=== PATIENT | female | born 1955 | race Two or more races ===

== ENCOUNTER 2020-06-19 07:19 | Emergency (ER) | payer MEDICARE, MEDICAID, SELFPAY ==
[2020-06-19 07:25] VITALS: BP 135/53; BP 170/00; PULSE 60; PULSE 65; RESP 18; TEMP 36.4; O2SAT 96; O2SAT 98; BMI 46.0
--- NOTE | 2020-06-19 07:31 | ECG_ITS ---
Test Reason : DIZZINESS Blood Pressure : / mmHG Vent. Rate : 060 BPM Atrial Rate : 060 BPM P-R Int : 188 ms QRS Dur : 086 ms QT Int : 452 ms P-R-T Axes : 043 -30 046 degrees QTc Int : 452 ms Atrial-paced rhythm Left axis deviation Abnormal ECG When compared with ECG of 23-JAN-2020 16:09, No significant change was found Referred By: Valencia Polanco Electronically Signed By:ARINA MANZANARES MD
--- NOTE | 2020-06-19 07:32 | ED.GENADULT ---
HPI - General Adult General Chief complaint: Dizziness Stated complaint: DIZZINESS Time Seen by Provider: 06/19/20 07:31 Source: patient Mode of arrival: EMS Limitations: no limitations History of Present Illness HPI narrative: Patient comes to the emergency room complaining of 3 days of intermittent dizziness. Patient states the whole room moves makes her feel nauseous. At this moment, she is asymptomatic. Patient states prior to arrival, she got up from a sitting position, started walking and started feeling like she was going to pass out. Patient has been complaining of head fullness and drinking in the right ear. Patient denies Chest pain, no shortness of breath, no neck pain, no vomiting diarrhea fever. patient denies falling despite being dizzy. Related Data Previous Rx's Medication Instructions Recorded meclizine 25 mg PO TID PRN #10 tab 06/19/20 Allergies Allergy/AdvReac Type Severity Reaction Status Date / Time No Known Allergies Allergy Unverified 05/09/20 18:09 Review of Systems Review of Systems: Constitutional : No Weight loss, No Fever, No Chills, No Night Sweats, No Fatigue, No Malaise ENT/Mouth : No Hearing loss, No Ear Pain, complaining of ringing in the right ear intermittently, No Nasal Congestion, No Sinus Pain, No Hoarseness, No sore throat, No Rhinorrhea, No Swallowing Difficulty Eyes: No Eye Pain, No Swelling, No Redness, No Foreign Body, No Discharge, No Vision Changes Cardiovascular : No Chest Pain, No SOB, No Dyspnea on Exertion, No Orthopnea, No Edema, No Palpitations Respiratory : No Cough, No Sputum, No Wheezing, No Smoke Exposure, No Dyspnea Gastrointestinal : No Nausea, No Vomiting, No Diarrhea, No Constipation, No abdominal Pain, No Hematochezia, No Melena Genitourinary : no irregular bleeding, No Dysuria, No Urinary Frequency, No Hematuria, No Urinary Incontinence, No Urgency, No Flank Pain, No Urinary Flow Changes, No Hesitancy Musculoskeletal : No joint pain, No Myalgias, No Joint Swelling Skin : No Skin Lesions, No rash Neuro : No Weakness, No Numbness, No Paresthesias, No Loss of Consciousness, Complaining of dizziness and head fullness Psych : No Anxiety/Panic, No Depression, No SI/HI/AH/VH, No Social Issues, Heme/Lymph: No Bruising, No Bleeding,No Lymphadenopathy Endocrine : No Polyuria, No Polydipsia, No Temperature Intolerance [facility] Past Medical History Medical History Asthma HTN (hypertension) Hypothyroid Pacemaker Schizophrenia Surgical History Hx of kidney removal Hx of removal of ovary Social History Social History Advance Directives: Yes Advance Directives Information Provided: No Advance Directives on File: No Physical Exam Vital Signs: Vital Signs: Vital Signs Temp Pulse Resp BP Pulse Ox 06/19/20 07:25 97.6 F 60 18 135/53 L 96 Body Mass Index 46.0 Appearance: Alert. Oriented X3. No acute distress. Eyes: Pupils equal, round and reactive to light. ENT: Pharynx normal. Neck: Normal inspection. Neck supple. No lymph nodes noted. No crepitus CVS: Normal heart rate and rhythm. Pulses normal. Normal S1 and S2 Respiratory: No respiratory distress. Breath sounds normal. No Wheezing. No rales Abdomen: Soft and nontender. No rigidity. No distention. good BS x4 Skin: Skin warm and dry. Normal skin color. Normal skin turgor. Extremities: No lower extremity edema. No lower extremity edema. No Lacerations. No Rash Neuro: Oriented X 3. No motor deficit. No sensory deficit. Moving all extermities. No slurred speech. Course Course Course Narrative: patient states that she feels much better now, no longer having ringing in the ears, no longer dizzy. I discussed with the patient that she may have vertigo versus Meniere's disease. Patient will follow-up with her primary care physician. at this time, dizziness from cardiac etiology is not suspected. Discussed with the patient if she continues having these episodes of dizziness, she may need a Holter monitor Medical Decision Making Lab Data Result diagrams: 06/19/20 07:44 06/19/20 07:44 Labs: Lab Results 06/19/20 06/19/20 Range/Units 07:44 07:44 WBC 6.4 (4.8-10.8) X10*3/uL RBC 4.31 (4.20-5.50) X10*6/uL Hgb 12.5 (12.0-16.0) g/dl Hct 38.9 (37-47) % MCV 90.3 (80-98) fL MCH 29.0 (27.0-33.0) pg MCHC 32.1 (31.0-35.0) g/dl RDW 13.6 (11.0-16.0) % Plt Count 308 (160-400) X10*3/uL MPV 8.9 L (9.4-12.3) fL Immature Gran % (Auto) 0.3 (0.0-0.4) % Neut % (Auto) 63.2 (45-73) % Lymph % (Auto) 23.2 (20-40) % [place] % (Auto) 10.0 (2-11) % Eos % (Auto) 2.8 (0-4) % Baso % (Auto) 0.5 (0-2) % Lymph # (Auto) 1.5 (1.2-4.9) X10*3/uL [place] # (Auto) 0.6 (0.1-1.2) X10*3/uL Eos # (Auto) 0.2 (0.0-0.4) X10*3/uL Baso # (Auto) 0.0 (0.0-0.2) X10*3/uL Abs Immat Gran (auto) 0.02 (0.00-0.03) X10*3/uL Absolute Neuts (auto) 4.0 (2.0-8.3) X10*3/uL Absolute Nucleated RBC 0.000 (0.0-0.012) X10*3/uL Nucleated RBC % (auto) 0.0 (0.0-0.2) /100WBC Sodium 135 (135-145) mmol/L Potassium 4.5 (3.3-5.1) mmol/l Chloride 100 (96-108) mmol/L Carbon Dioxide 26 (22-29) mmol/L Anion Gap 14 (12-20) BUN 7 L (9-16) mg/dL Creatinine 0.84 (0.5-1.4) mg/dL Estim Creat Clear Calc 83.9 Estimated GFR > 60 Random Glucose 89 (60-115) mg/dL Calcium 9.0 (8.4-10.2) mg/dL ECG Data Attestation: I personally reviewed and interpreted this ECG as follows: ( Atrial paced rhythm, heart rate 60, QTC 452, no ST segment elevations or depressions, no T-wave inversions) Discharge Plan Discharge Clinical Impression: Dizziness Patient Disposition: Home, Self-Care Instructions: Meniere Disease (ED), Vertigo (ED), Dizziness (ED) Additional Instructions: Please follow-up with your primary care physician tomorrow. If you have any worsening or new symptoms, please return to the emergency room or call 911 Prescriptions: New meclizine 25 mg tablet 25 mg PO TID PRN (Reason: dizziness) Qty: 10 RF: 0
[2020-06-19 07:51] LABS: MANUAL DIFF FLAG NO
[2020-06-19 07:54] LABS: Basophils Percent Auto 0.5 % (0-2); Eosinophils Absolute Auto 0.2 X10*3/uL (0.0-0.4); Eosinophils Percent Auto 2.8 % (0-4); Hematocrit 38.9 % (37-47); Hemoglobin 12.5 g/dl (12.0-16.0); Imm Gran Abs Auto 0.02 X10*3/uL (0.00-0.03); Imm Gran Pct Auto 0.3 % (0.0-0.4); Lymphocytes Absolute Auto 1.5 X10*3/uL (1.2-4.9); Lymphocytes Percent Auto 23.2 % (20-40); Mean Corpuscular HGB Conc 32.1 g/dl (31.0-35.0); Mean Corpuscular Volume 90.3 fL (80-98); Mean Platelet Volume 8.9 fL (9.4-12.3); Monocytes Absolute Auto 0.6 X10*3/uL (0.1-1.2); Neutrophils Percent Auto 63.2 % (45-73); Platelet Count 308 X10*3/uL (160-400); Red Blood Count 4.31 X10*6/uL (4.20-5.50); Red Cell Distribution Width 13.6 % (11.0-16.0); White Blood Count 6.4 X10*3/uL (4.8-10.8)
[2020-06-19] MEDS: Meclizine HCl 25 MG TABLET 50 MG PO (07:56)
[2020-06-19 08:13] LABS: Anion Gap 14 (12-20); Blood Urea Nitrogen 7 mg/dL (9-16); Carbon Dioxide 26 mmol/L (22-29); Chloride 100 mmol/L (96-108); Creatinine Clr Calc Pharmacy 83.9; Estimated Glomerular Filt Rate > 60; Glucose Random 89 mg/dL (60-115); Potassium 4.5 mmol/l (3.3-5.1); Sodium 135 mmol/L (135-145)
--- NOTE | 2020-06-19 10:18 | PC.NURSE ---
pt resting and watching tv at this time, alert and oriented, skin pwd, respirations even and unlabored. pt denies feeling dizzy at this, ns on the monitor and vs stable
== END 2020-06-19 10:46 | disposition home or self-care (01) ==
PROVIDERS: Emergency Provider Emergency Medicine; PCP Internal Medicine
DX: R42 Dizziness and giddiness (principal); I10 Essential (primary) hypertension; Z79.899 Other long term (current) drug therapy
CPT/HCPCS: 36415; 80048; 85025; 93005; 99283; 99284

== ENCOUNTER 2020-07-30 11:16 | Inpatient (IN) | payer MEDICARE, MEDICAID, SELFPAY ==
[2020-07-30] VITALS (9 sets, daily range): BP systolic 122–184; BP diastolic 55–91; PULSE 60–79; RESP 13–22; TEMP 36.6–37.2; O2SAT 85–99; BMI 48.0
--- NOTE | 2020-07-30 11:34 | XR_ITS ---
EXAMINATION: XR CHEST CLINICAL INFORMATION: Shortness of breath COMPARISON: Previous chest x-ray January 2020 TECHNIQUE: Frontal view of the chest was obtained. FINDINGS: The cardiac silhouette is slightly enlarged. There is a left subclavian dual chamber pacemaker. Hilar and mediastinal contours are unremarkable. There is question of airspace disease at the left lung base. The right lung is clear. There is no pleural effusion or pneumothorax. Bony structures are unremarkable. XR/XR chest 1V IMPRESSION: Enlarged cardiac silhouette. Question airspace disease at the left lung base.
--- NOTE | 2020-07-30 11:34 | ECG_ITS ---
Test Reason : [id number] Blood Pressure : / mmHG Vent. Rate : 060 BPM Atrial Rate : 060 BPM P-R Int : 148 ms QRS Dur : 078 ms QT Int : 452 ms P-R-T Axes : 060 -25 039 degrees QTc Int : 452 ms Atrial-paced rhythm Abnormal ECG When compared with ECG of 19-JUN-2020 07:55, No significant change was found Referred By: Eve Palma Electronically Signed By:LISSETTE EDMONDS
--- NOTE | 2020-07-30 12:08 | ED_ITS ---
HPI - SOB/Dyspnea General Chief Complaint: Weakness Stated Complaint: dizziness/weakness Time Seen by Provider: 07/30/20 11:34 Source: patient and EMS Mode of arrival: EMS History of Present Illness HPI Narrative: 64-year-old female with a past medical history of asthma, hypertension, hypothyroid, pacemaker, schizophrenia BIBA for worsening dry cough, generalized fatigue/weakness, & SOB x5 days. Was recently diagnosed with pneumonia at [facility] , has been taking Levaquin with little relief. Admits to subjective fever, diarrhea, and orthopnea. Reports assoc room spinning dizziness worse with position changes, but not at present. Denies CP, recent travel, sick contacts, abdominal pain, nausea/vomiting, LE edema, history of clots. Has been taking asthma inhalers at home with little relief MD elicited complaint: shortness of breath and cough Related Data Home Medications Medication Instructions Recorded Confirmed albuterol sulfate [ProAir HFA] 2 puff PO Q4H PRN 07/30/20 07/30/20 atorvastatin 1 tab PO DAILY 07/30/20 07/30/20 benztropine 1 tab PO BID 07/30/20 07/30/20 dronedarone [Multaq] 1 tab PO BID 07/30/20 07/30/20 levofloxacin 1 tab PO DAILY 07/30/20 07/30/20 levothyroxine 1 tab PO QAM 07/30/20 07/30/20 loratadine 1 tab PO DAILY 07/30/20 07/30/20 magnesium oxide 1 tab PO DAILY 07/30/20 07/30/20 melatonin 1 - 2 tab PO BEDTIME PRN 07/30/20 07/30/20 metoprolol tartrate 12.5 mg PO BID 07/30/20 07/30/20 paliperidone palmitate [Invega 1 syringe IM Q4W 07/30/20 07/30/20 Sustenna] potassium chloride 1 packet PO DAILY 07/30/20 07/30/20 risperidone 1 mg PO BEDTIME PRN 07/30/20 07/30/20 risperidone 1 tab PO TID 07/30/20 07/30/20 rivaroxaban [Xarelto] 1 tab PO BEDTIME 07/30/20 07/30/20 sertraline 1 tab PO DAILY 07/30/20 07/30/20 sertraline 1.5 tab PO DAILY 07/30/20 07/30/20 Previous Rx's Medication Instructions Recorded meclizine 25 mg PO TID PRN #10 tab 06/19/20 Allergies Allergy/AdvReac Type Severity Reaction Status Date / Time No Known Allergies Allergy Verified 07/30/20 11:27 Review of Systems Review of Systems: Constitutional: No Weight loss, +subj Fever, No Chills, + Fatigue, + Malaise ENT/Mouth: No Hearing loss, No Ear Pain, No Nasal Congestion, No sore throat Cardiovascular: No Chest Pain, +SOB, + Dyspnea on Exertion, + Orthopnea, No Edema, No Palpitations Respiratory: + Cough, No Sputum, No Wheezing, +Dyspnea Gastrointestinal: No Nausea, No Vomiting, + Diarrhea, No Constipation, No Abdominal pain Genitourinary: No Dysuria Musculoskeletal: No joint pain, + Myalgias, No Joint Swelling Skin: No Skin Lesions, No rash Neuro: +genrealized Weakness, No Loss of Consciousness, + Dizziness, No Headache Yes all other systems are reviewed and are negative [facility] Past Medical History Attestation statement: The following information was validated with the patient. Medical History Asthma HTN (hypertension) Hypothyroid Pacemaker Schizophrenia Surgical History Hx of kidney removal Hx of removal of ovary Social History Social History Smoking Status: Never smoker Use of substances other than those prescribed or required for medical reasons: No Advance Directives: No Advance Directives Information Provided: Yes Physical Exam Vital Signs: Vital Signs: Last Vital Signs Temp 98 F 07/30/20 12:00 Pulse 60 07/30/20 13:15 Resp 13 07/30/20 13:15 BP 132/67 07/30/20 13:15 Pulse Ox 96 07/30/20 13:15 Body Mass Index 48.0 Const: General: cooperative and healthy appearing Orientation/consciousness: patient oriented x3 Limitations: no limitations HENMT: Head: Yes normal to inspection Ears: hearing grossly normal bilaterally General nose exam: Normal external nose present Face and sinus: Yes normal facial exam Eyes: General: appearance normal, both eyes and all related structures EOM: EOMs intact bilaterally and Nystagmus present Neck: Neck: Yes normal visual inspection and Yes no meningeal signs Resp: Effort & Inspection: normal respiratory effort and no stridor Auscultation: crackles (bibasilar) Cardio: Rate: regular rate Heart sounds: S1 normal heart sound present and S2 normal heart sound present GI: Inspection: Yes normal to inspection Palpation (GI): Soft to palpation, nontender, no guarding and not rigid Skin: Rashes: no rashes Wounds: no wounds Neuro: General: patient oriented x3, tone normal, moves all extremities, no meningeal signs, no focal motor deficits and CN's II-XI intact bilaterally Cranial nerves: Yes Nystagmus present horizontal fast component to the left Cognition (Neuro): normal cognition Motor exam (neuro): 5/5 motor strength present throughout Coordination: [id number] test normal Extrem: Other: No LE edema or calf tenderness General: Yes normal to inspection Course Course Course Narrative: -CXR showing enlarged cardiac silhouette, question airspace disease in the left lung base> dry CT chest ordered -1307--leukopenia of 4.0, H&H stable, LDH and CRP elevated -CT chest showing scattered areas of ground-glass attenuation and denser atelectasis or consolidation in the left lung base. Pneumonitis or atypical viral pneumonia including COVID-19 should be considered. Trace bilateral pleural effusions > will initiate Azithromycin & admit -patient is COVID-19 positive MDM - SOB/Dyspnea MDM Narrative Medical decision making narrative: 64-year-old female with a past medical history of asthma, hypertension, hypothyroid, pacemaker, schizophrenia BIBA for worsening dry cough, generalized fatigue/weakness, & SOB x5 days. On exam initially sating 85% on room air, increased to 95% on 3L NC, bibasilar crackles, no LE edema, nontoxic appearing. Concern for COVID-19/viral pneumonia vs pneumonia. Lower concern for CHF or ACS Plan: EKG, labs, CXR, COVID-19 screening, Solu-Medrol, albuterol, anticipated admission Lab Data Result diagrams: 07/30/20 12:16 07/30/20 12:16 Labs: Lab Results 07/30/20 07/30/20 07/30/20 Range/Units 12:16 12:16 12:16 WBC 4.0 L (4.8-10.8) X10*3/uL RBC 3.93 L (4.20-5.50) X10*6/uL Hgb 11.2 L (12.0-16.0) g/dl Hct 36.0 L (37-47) % MCV 91.6 (80-98) fL MCH 28.5 (27.0-33.0) pg MCHC 31.1 (31.0-35.0) g/dl RDW 14.5 (11.0-16.0) % Plt Count 213 D (160-400) X10*3/uL MPV 8.9 L (9.4-12.3) fL Immature Gran % (Auto) 0.5 H (0.0-0.4) % Neut % (Auto) 69.5 (45-73) % Lymph % (Auto) 22.1 (20-40) % [place] % (Auto) 7.3 (2-11) % Eos % (Auto) 0.3 (0-4) % Baso % (Auto) 0.3 (0-2) % Lymph # (Auto) 0.9 L (1.2-4.9) X10*3/uL [place] # (Auto) 0.3 (0.1-1.2) X10*3/uL Eos # (Auto) 0.0 (0.0-0.4) X10*3/uL Baso # (Auto) 0.0 (0.0-0.2) X10*3/uL Abs Immat Gran (auto) 0.02 (0.00-0.03) X10*3/uL Absolute Neuts (auto) 2.8 (2.0-8.3) X10*3/uL Absolute Nucleated RBC 0.000 (0.0-0.012) X10*3/uL Nucleated RBC % (auto) 0.0 (0.0-0.2) /100WBC Hold Blue Top SEE NOTE Sodium 137 (135-145) mmol/L Potassium 4.4 (3.3-5.1) mmol/l Chloride 104 (96-108) mmol/L Carbon Dioxide 27 (22-29) mmol/L Anion Gap 10 L (12-20) BUN 10 (9-16) mg/dL Creatinine 0.83 (0.5-1.4) mg/dL Estim Creat Clear Calc 87.1 Estimated GFR > 60 Random Glucose 90 (60-115) mg/dL Calcium 8.2 L D (8.4-10.2) mg/dL Magnesium 2.0 (1.6-2.6) mg/dL Ferritin 176 (10-250) ng/mL Total Bilirubin 0.6 (0.0-1.0) mg/dL Direct Bilirubin 0.2 (0.0-0.5) mg/dL AST 21 (5-31) U/L ALT 14 (0-31) U/L Alkaline Phosphatase 74 (39-117) U/L Lactate Dehydrogenase 255 H (122-220) U/L Troponin I High Sens (<3.5-17.0) ng/L C-Reactive Protein 8.98 H (< or = 0.50) mg/dL B-Natriuretic Peptide (<100) pg/mL Total Protein 6.9 (6.5-8.0) g/dL Albumin 3.4 L (3.5-5.0) g/dL Procalcitonin ng/mL Coronavirus (PCR) (Negative) Influenza Type A (PCR) (Negative) Influenza Type B (PCR) (Negative) RSV RNA Qual (PCR) (Negative) 07/30/20 07/30/20 07/30/20 Range/Units 12:16 12:16 12:16 WBC (4.8-10.8) X10*3/uL RBC (4.20-5.50) X10*6/uL Hgb (12.0-16.0) g/dl Hct (37-47) % MCV (80-98) fL MCH (27.0-33.0) pg MCHC (31.0-35.0) g/dl RDW (11.0-16.0) % Plt Count (160-400) X10*3/uL MPV (9.4-12.3) fL Immature Gran % (Auto) (0.0-0.4) % Neut % (Auto) (45-73) % Lymph % (Auto) (20-40) % [place] % (Auto) (2-11) % Eos % (Auto) (0-4) % Baso % (Auto) (0-2) % Lymph # (Auto) (1.2-4.9) X10*3/uL [place] # (Auto) (0.1-1.2) X10*3/uL Eos # (Auto) (0.0-0.4) X10*3/uL Baso # (Auto) (0.0-0.2) X10*3/uL Abs Immat Gran (auto) (0.00-0.03) X10*3/uL Absolute Neuts (auto) (2.0-8.3) X10*3/uL Absolute Nucleated RBC (0.0-0.012) X10*3/uL Nucleated RBC % (auto) (0.0-0.2) /100WBC Hold Blue Top Sodium (135-145) mmol/L Potassium (3.3-5.1) mmol/l Chloride (96-108) mmol/L Carbon Dioxide (22-29) mmol/L Anion Gap (12-20) BUN (9-16) mg/dL Creatinine (0.5-1.4) mg/dL Estim Creat Clear Calc Estimated GFR Random Glucose (60-115) mg/dL Calcium (8.4-10.2) mg/dL Magnesium (1.6-2.6) mg/dL Ferritin (10-250) ng/mL Total Bilirubin (0.0-1.0) mg/dL Direct Bilirubin (0.0-0.5) mg/dL AST (5-31) U/L ALT (0-31) U/L Alkaline Phosphatase (39-117) U/L Lactate Dehydrogenase (122-220) U/L Troponin I High Sens < 3.5 (<3.5-17.0) ng/L C-Reactive Protein (< or = 0.50) mg/dL B-Natriuretic Peptide 25 (<100) pg/mL Total Protein (6.5-8.0) g/dL Albumin (3.5-5.0) g/dL Procalcitonin 0.07 ng/mL Coronavirus (PCR) POSITIVE A (Negative) Influenza Type A (PCR) NEGATIVE (Negative) Influenza Type B (PCR) NEGATIVE (Negative) RSV RNA Qual (PCR) NEGATIVE (Negative) Discharge Plan Discharge Clinical Impression: Atypical pneumonia, COVID-19 Patient Disposition: Admitted As Inpatient
--- NOTE | 2020-07-30 12:16 | CT_ITS ---
EXAMINATION: CT CHEST WITHOUT CONTRAST CLINICAL INFORMATION: Hypoxia. Rule out pneumonia. COMPARISON: Previous CTA of the chest September 2015 TECHNIQUE: Multidetector volumetric CT imaging of the chest was done. Axial MIP volume rendering provided. Sagittal and coronal reformatted images were obtained. This CT examination was performed using dose optimization techniques as appropriate, variously including the following: *Automated exposure control *Adjustment of mA and/or kV according to patient size (this includes techniques or standardized protocols for targeted exams where dose is matched to indication/reason for exam; i.e. extremities or head) *Use of iterative reconstruction technique DLP: 413 mGy-cm FINDINGS: ENERGY ANALYST: Enlarged heart and left subclavian pacemaker LUNGS: There are scattered areas of groundglass attenuation seen throughout the lungs. There is denser atelectasis or consolidation at the left lung base. MEDIASTINUM: The thyroid gland is enlarged. There is diffuse mediastinal lymphadenopathy. Larger lymph nodes are upper normal in size. The heart is enlarged. There is a left subclavian dual chamber pacemaker. There is no pericardial effusion. There is no coronary artery calcification. PLEURA: There are trace bilateral pleural effusions, right greater than left. AXILLA: No chest wall mass or enlarged axillary lymph nodes are seen. UPPER ABDOMEN: Unremarkable. OSSEOUS STRUCTURES: There are mild degenerative changes of the spine. CT/CT chest wo con IMPRESSION: Scattered areas of groundglass attenuation and denser atelectasis or consolidation at the left lung base. Pneumonitis or atypical viral pneumonia including Covid 19 should be considered. Enlarged heart. Trace bilateral pleural effusions. Enlarged thyroid gland.
[2020-07-30 12:24] LABS: MANUAL DIFF FLAG NO
[2020-07-30 12:30] LABS: Basophils Percent Auto 0.3 % (0-2); Eosinophils Percent Auto 0.3 % (0-4); Hemoglobin 11.2 g/dl (12.0-16.0); Imm Gran Abs Auto 0.02 X10*3/uL (0.00-0.03); Imm Gran Pct Auto 0.5 % (0.0-0.4); Lymphocytes Absolute Auto 0.9 X10*3/uL (1.2-4.9); Lymphocytes Percent Auto 22.1 % (20-40); Mean Corpuscular HGB Conc 31.1 g/dl (31.0-35.0); Mean Corpuscular Hemoglobin 28.5 pg (27.0-33.0); Mean Corpuscular Volume 91.6 fL (80-98); Mean Platelet Volume 8.9 fL (9.4-12.3); Monocytes Absolute Auto 0.3 X10*3/uL (0.1-1.2); Monocytes Percent Auto 7.3 % (2-11); Neutrophils Absolute Auto 2.8 X10*3/uL (2.0-8.3); Neutrophils Percent Auto 69.5 % (45-73); Platelet Count 213 X10*3/uL (160-400); Red Blood Count 3.93 X10*6/uL (4.20-5.50); Red Cell Distribution Width 14.5 % (11.0-16.0)
[2020-07-30 13:01] LABS: Alanine Aminotransferase 14 U/L (0-31); Albumin Level 3.4 g/dL (3.5-5.0); Alkaline Phosphatase 74 U/L (39-117); Anion Gap 10 (12-20); Aspartate Amino Transferase 21 U/L (5-31); Bilirubin Direct 0.2 mg/dL (0.0-0.5); Bilirubin Total 0.6 mg/dL (0.0-1.0); Blood Urea Nitrogen 10 mg/dL (9-16); C Reactive Protein 8.98 mg/dL (< or = 0.50); Calcium 8.2 mg/dL (8.4-10.2); Carbon Dioxide 27 mmol/L (22-29); Chloride 104 mmol/L (96-108); Creatinine Clr Calc Pharmacy 87.1; Estimated Glomerular Filt Rate > 60; Glucose Random 90 mg/dL (60-115); Lactate Dehydrogenase 255 U/L (122-220); Potassium 4.4 mmol/l (3.3-5.1); Sodium 137 mmol/L (135-145); Total Protein 6.9 g/dL (6.5-8.0)
[2020-07-30] MEDS: methylPREDNISolone Sod Succ/PF 125 MG/2 ML VIAL IVPUSH (13:03)
[2020-07-30 13:08] LABS: B Type Natriuretic Peptide 25 pg/mL (<100); Troponin-I High Sensitivity < 3.5 ng/L (<3.5-17.0)
[2020-07-30 13:19] LABS: Procalcitonin 0.07 ng/mL
[2020-07-30 13:22] LABS: Ferritin 176 ng/mL (10-250)
[2020-07-30 13:37] LABS: Influenza A PCR NEGATIVE (Negative); Influenza B PCR NEGATIVE (Negative); Resp Syncy Virus RNA Qual PCR NEGATIVE (Negative)
[2020-07-30] MEDS: Azithromycin 500 MG in 0.9 % Sodium Chloride 250 ML 125 MG IV (13:44)
[2020-07-30 13:45] LABS: SARS COV2 PCR INHOUSE POSITIVE (Negative)
--- NOTE | 2020-07-30 13:49 | PC.NURSE ---
pt aware of plan of care for admission to hosp.
--- NOTE | 2020-07-30 14:38 | PM.IMHP ---
History of Present Illness Date of Service: 07/30/20 Chief Complaint: Shortness of breath, difficulty breathing A 64 years old lady with PMH of asthma, HLD, AFib post ppm, hypothyroid, depression among others who presented to the hospital complaining of 1 week of shortness of breath, worsening lethargy and cough. The patient reports she was doing well during the last period of time until last week when she started to have upper respiratory symptoms with shortness of breath, cough and mild congestion. Her symptoms were associated with mild nausea and episodes of diarrhea with no reported fever, chills, chest pain, palpitation or urinary symptoms. This morning she noted that she is more short of breath with minimal exertion and decided to come to the emergency for evaluation. She was noticed to have a drop in her oxygen level to 80s on room air. CT scan of chest was concerning for possible viral infection. She was tested positive for COVID-19. Review of Systems Review of Systems: No fever, chills or weakness No chest pain, palpitation Reporting mainly exertional shortness of breath and coughing No abdominal pain, nausea or vomiting, reports diarrhea No urinary symptoms No any rash or wounds [facility] Medical History Asthma HTN (hypertension) Hypothyroid Pacemaker Schizophrenia Surgical History Hx of kidney removal Hx of removal of ovary Social History Smoking Status: Never smoker Use of substances other than those prescribed or required for medical reasons: No Advance Directives: No Advance Directives Information Provided: Yes Meds Allergies Allergy/AdvReac Type Severity Reaction Status Date / Time No Known Allergies Allergy Verified 07/30/20 11:27 Home Medications Medication Instructions Recorded Confirmed Type albuterol sulfate [ProAir HFA] 2 puff PO Q4H PRN 07/30/20 07/30/20 History atorvastatin 1 tab PO DAILY 07/30/20 07/30/20 History benztropine 1 tab PO BID 07/30/20 07/30/20 History dronedarone [Multaq] 1 tab PO BID 07/30/20 07/30/20 History levofloxacin 1 tab PO DAILY 07/30/20 07/30/20 History levothyroxine 1 tab PO QAM 07/30/20 07/30/20 History loratadine 1 tab PO DAILY 07/30/20 07/30/20 History magnesium oxide 1 tab PO DAILY 07/30/20 07/30/20 History melatonin 1 - 2 tab PO BEDTIME PRN 07/30/20 07/30/20 History metoprolol tartrate 12.5 mg PO BID 07/30/20 07/30/20 History paliperidone palmitate [Invega 1 syringe IM Q4W 07/30/20 07/30/20 History Sustenna] potassium chloride 1 packet PO DAILY 07/30/20 07/30/20 History risperidone 1 mg PO BEDTIME PRN 07/30/20 07/30/20 History risperidone 1 tab PO TID 07/30/20 07/30/20 History rivaroxaban [Xarelto] 1 tab PO BEDTIME 07/30/20 07/30/20 History sertraline 1 tab PO DAILY 07/30/20 07/30/20 History sertraline 1.5 tab PO DAILY 07/30/20 07/30/20 History Physical Exam Vital Signs and Narrative: Vital Signs: Last Vital Signs Temp 98 F 07/30/20 12:00 Pulse 60 07/30/20 13:15 Resp 13 07/30/20 13:15 BP 132/67 07/30/20 13:15 Pulse Ox 96 07/30/20 13:15 Body Mass Index 48.0 Constitutional : Alert, oriented, not in distress Neck : Normal inspection, Supple Cardiovascular : RRR, S1 S2, no lower extremity edema Respiratory : Fair bilateral air entry, bilateral basal crackles bilaterally and scattered wheezes Gastrointestinal: soft, lax, Normal bowel sounds, Non tender Skin : Warm/Dry, No rash Neurological : Alert & oriented x3, No focal deficit Results Labs CBC and Chem 7: 07/30/20 12:16 07/30/20 12:16 Labs: Laboratory Results - last 24 hr 07/30/20 07/30/20 07/30/20 12:16 12:16 12:16 MCV 91.6 MCH 28.5 MCHC 31.1 RDW 14.5 Plt Count 213 D MPV 8.9 L Immature Gran % (Auto) 0.5 H Neut % (Auto) 69.5 Lymph % (Auto) 22.1 Butler % (Auto) 7.3 Eos % (Auto) 0.3 Baso % (Auto) 0.3 Lymph # (Auto) 0.9 L Butler # (Auto) 0.3 Eos # (Auto) 0.0 Baso # (Auto) 0.0 Abs Immat Gran (auto) 0.02 Absolute Neuts (auto) 2.8 Absolute Nucleated RBC 0.000 Nucleated RBC % (auto) 0.0 Hold Blue Top SEE NOTE Anion Gap 10 L Estim Creat Clear Calc 87.1 Estimated GFR > 60 Random Glucose 90 Calcium 8.2 L D Magnesium 2.0 Ferritin 176 Total Bilirubin 0.6 Direct Bilirubin 0.2 AST 21 ALT 14 Alkaline Phosphatase 74 Lactate Dehydrogenase 255 H Troponin I High Sens C-Reactive Protein 8.98 H B-Natriuretic Peptide Total Protein 6.9 Albumin 3.4 L Procalcitonin Coronavirus (PCR) Influenza Type A (PCR) Influenza Type B (PCR) RSV RNA Qual (PCR) 07/30/20 07/30/20 07/30/20 12:16 12:16 12:16 MCV MCH MCHC RDW Plt Count MPV Immature Gran % (Auto) Neut % (Auto) Lymph % (Auto) Butler % (Auto) Eos % (Auto) Baso % (Auto) Lymph # (Auto) Butler # (Auto) Eos # (Auto) Baso # (Auto) Abs Immat Gran (auto) Absolute Neuts (auto) Absolute Nucleated RBC Nucleated RBC % (auto) Hold Blue Top Anion Gap Estim Creat Clear Calc Estimated GFR Random Glucose Calcium Magnesium Ferritin Total Bilirubin Direct Bilirubin AST ALT Alkaline Phosphatase Lactate Dehydrogenase Troponin I High Sens < 3.5 C-Reactive Protein B-Natriuretic Peptide 25 Total Protein Albumin Procalcitonin 0.07 Coronavirus (PCR) POSITIVE A Influenza Type A (PCR) NEGATIVE Influenza Type B (PCR) NEGATIVE RSV RNA Qual (PCR) NEGATIVE Imaging Radiologist's Impressions: Impressions Chest X-Ray 07/30/20 11:34 IMPRESSION: Enlarged cardiac silhouette. Question airspace disease at the left lung base. Chest CT 07/30/20 12:16 IMPRESSION: Scattered areas of groundglass attenuation and denser atelectasis or consolidation at the left lung base. Pneumonitis or atypical viral pneumonia including Covid 19 should be considered. Enlarged heart. Trace bilateral pleural effusions. Enlarged thyroid gland. Assessment and Plan (1) Atypical pneumonia: Status: Acute (2) COVID-19: Status: Acute (3) Acute respiratory failure with hypoxia: Status: Acute A 64 years old lady with PMH of asthma, HLD, AFib post ppm, hypothyroid, depression among others who presented to the hospital complaining of 1 week of shortness of breath, worsening lethargy and cough. Acute hypoxic respiratory failure Secondary to COVID-19 infection Give O2 supplement to keep sat in 90s Start dexamethasone 6 mg daily for now Albuterol inhaler as needed To get pulmonology evaluation Monitor blood work and keep on telemetry for now Atypical pneumonia She could have a bacteria superinfection Continue with azithromycin for now Atrial fibrillation post ppm Continue Multaq and metoprolol Continue Xarelto On heart monitor Schizophrenia continue risperidone DVT PPX Xarelto
--- NOTE | 2020-07-30 16:09 | PC.NURSE ---
Pt very easily exerted, i/.e when using bedside commode.
[2020-07-30] MEDS: risperiDONE 1 MG TABLET PO ×2 (17:40→20:00)
--- NOTE | 2020-07-30 18:53 | PC.NURSE ---
x1 attempt to give report.
--- NOTE | 2020-07-30 18:59 | PC.NURSE ---
Pt daughter updated via phone w/ pts permission. Glo Yu at [phone] with updates
[2020-07-30] MEDS: Levothyroxine Sodium 112 MCG TABLET PO (20:00)
[2020-07-30] MEDS: Atorvastatin Calcium 80 MG TABLET PO (20:00)
[2020-07-30] MEDS: Metoprolol Tartrate 25 MG TABLET 12.5 MG PO (20:00)
[2020-07-30] MEDS: dexAMETHasone sod phosphate 4 MG/ML VIAL 6 MG IVPUSH (20:00)
[2020-07-30] MEDS: Rivaroxaban 20 MG TABLET PO (20:01)
[2020-07-30] MEDS: 0.9 % Sodium Chloride Flush 3 ML SYRINGE IVFLUSH ×2 (20:05→21:22)
[2020-07-30] MEDS: Dronedarone HCl 400 MG TABLET PO (21:21)
[2020-07-30] MEDS: Benztropine Mesylate 1 MG TABLET PO (21:23)
[2020-07-31] VITALS (9 sets, daily range): BP systolic 121–152; BP diastolic 56–72; PULSE 60–73; RESP 18–20; TEMP 36.4–37.2; O2SAT 90–93; BMI 48.0
[2020-07-31 06:13] LABS: MANUAL DIFF FLAG NO
[2020-07-31 06:26] LABS: Hematocrit 36.3 % (37-47); Hemoglobin 11.7 g/dl (12.0-16.0); Imm Gran Abs Auto 0.02 X10*3/uL (0.00-0.03); Imm Gran Pct Auto 0.5 % (0.0-0.4); Lymphocytes Absolute Auto 0.7 X10*3/uL (1.2-4.9); Lymphocytes Percent Auto 18.9 % (20-40); Mean Corpuscular HGB Conc 32.2 g/dl (31.0-35.0); Mean Corpuscular Hemoglobin 29.1 pg (27.0-33.0); Mean Corpuscular Volume 90.3 fL (80-98); Mean Platelet Volume 9.1 fL (9.4-12.3); Monocytes Absolute Auto 0.3 X10*3/uL (0.1-1.2); Monocytes Percent Auto 8.4 % (2-11); Neutrophils Absolute Auto 2.8 X10*3/uL (2.0-8.3); Neutrophils Percent Auto 72.2 % (45-73); Platelet Count 244 X10*3/uL (160-400); Red Blood Count 4.02 X10*6/uL (4.20-5.50); Red Cell Distribution Width 14.3 % (11.0-16.0); White Blood Count 3.9 X10*3/uL (4.8-10.8)
[2020-07-31 06:56] LABS: Anion Gap 13 (12-20); Blood Urea Nitrogen 11 mg/dL (9-16); Carbon Dioxide 26 mmol/L (22-29); Chloride 102 mmol/L (96-108); Creatinine Clr Calc Pharmacy 92.7; Estimated Glomerular Filt Rate > 60; Glucose Random 124 mg/dL (60-115); Sodium 136 mmol/L (135-145)
[2020-07-31] MEDS: 0.9 % Sodium Chloride Flush 3 ML SYRINGE IVFLUSH ×3 (09:56→20:38)
[2020-07-31] MEDS: dexAMETHasone sod phosphate 4 MG/ML VIAL 6 MG IVPUSH (09:56)
[2020-07-31] MEDS: Sertraline HCL 50 MG TABLET 75 MG PO (09:57)
[2020-07-31] MEDS: Metoprolol Tartrate 25 MG TABLET 12.5 MG PO ×2 (09:58→20:36)
[2020-07-31] MEDS: Sertraline HCL 100 MG TABLET PO (09:59)
[2020-07-31] MEDS: Magnesium Oxide 400 MG TABLET PO (09:59)
[2020-07-31] MEDS: Levothyroxine Sodium 112 MCG TABLET PO (10:00)
[2020-07-31] MEDS: Potassium Chloride Packet 20 MEQ PACKET PO (10:00)
[2020-07-31] MEDS: Loratadine 10 MG TABLET PO (10:00)
[2020-07-31] MEDS: Dronedarone HCl 400 MG TABLET PO ×2 (10:00→20:36)
[2020-07-31] MEDS: risperiDONE 1 MG TABLET PO ×3 (10:00→20:37)
[2020-07-31] MEDS: Benztropine Mesylate 1 MG TABLET PO ×2 (10:00→20:38)
--- NOTE | 2020-07-31 10:20 | PM.EVENT ---
Event Note Date of Service: 07/31/20 Event Note: Pt . seen for Pulm . consult, Case reviewed , including current history , Lab and Imaging . A: Acute Covid-19 infection . Covid related Pneumonitis . Resp distress , Hypoxemia , sec to above . P; Agree with current treatment mainly , Dexamethasone , and O2 . Consider REMDESVIR therapy if condition worsens .
--- NOTE | 2020-07-31 10:27 | MHC.CDI.CONC ---
CDI Concurrent Query Service Date: 07/31/20 Documentation Clarification: Please clarify if you are treating a probable/suspected/likely or confirmed: BMI Morbid obesity Please specify if known Provider Response: Other Other Diagnosis: Morbid obesity PLEASE DO NOT DELETE/MODIFY EXISTING CONTENT Additional information is needed in order to code to the highest accuracy and appropriate Severity of Illness (SOI). Please clarify the information noted below in your progress notes and discharge summary. Risk Factors/Clinical Indicators/Treatments BODY MASS INDEX: 48.0 CDS: [facility], [facility] Contact Number: [phone] Please Review the information above and exercise your independent professional judgment in responding to the query. If you concur, pleas document in the PROGRESS NOTES and DISCHARGE SUMMARY. If you do not agree with the query, please document in the query above. THIS QUERY IS PART OF THE PERMANENT MEDICAL RECORD
--- NOTE | 2020-07-31 11:53 | HO.PM.IMPN ---
Subjective Subjective Date of Service: 07/31/20 Interval History: the patient was seen and evaluated this morning Laying in bed, feels comfortable Denies any fever, chills but reported shortness of breath with exertion No reported other overnight events. Systemic review: No fever, chills or weakness No chest pain, palpitation Reported coughing and having shortness of breath mainly with exertion No abdominal pain, nausea or vomiting No urinary symptoms No any rash or wounds Physical Exam Vital Signs: Vital Signs: Last Vital Signs Temp 98.0 F 07/31/20 07:52 Pulse 64 07/31/20 09:58 Resp 18 07/31/20 07:52 BP 149/68 H 07/31/20 09:58 Pulse Ox 90 L 07/31/20 07:52 Body Mass Index 48.0 Constitutional : Alert, oriented, not in distress Neck : Normal inspection, Supple Cardiovascular : RRR, S1 S2, no lower extremity edema Respiratory : Fair bilateral air entry, not in respiratory distress, on oxygen supplement Gastrointestinal: soft, lax, Normal bowel sounds, Non tender Skin : Warm/Dry, No rash Neurological : Alert & oriented x3, No focal deficit Objective Data Current Medications Generic Name Dose Route Start Last Admin Trade Name Freq PRN Reason Stop Dose Admin Acetaminophen 650 mg 07/30/20 19:25 Acetaminophen 325 Mg Tablet PO Q6H PRN Pain, Mild (Pain Scale 1-3) Albuterol Sulfate 2 puff 07/30/20 19:25 Albuterol Sulfate 90 Mcg 8 Gm Inhaler INHALE Q4H PRN dyspnea Atorvastatin Calcium 80 mg 07/30/20 21:00 07/30/20 20:00 Atorvastatin Calcium 80 Mg Tablet PO 80 mg BEDTIME ANTONETTE Administration Azithromycin 500 mg 07/31/20 14:00 Azithromycin 500 Mg Tablet PO Q24H ANTONETTE Benztropine Mesylate 1 mg 07/30/20 21:00 07/31/20 10:00 Benztropine Mesylate 1 Mg Tablet PO 1 mg BID ANTONETTE Administration Dexamethasone Sodium Phosphate 6 mg 07/30/20 19:25 07/31/20 09:56 Dexamethasone Sod Phosphate 4 Mg/Ml Vial IVPUSH 6 mg DAILY ANTONETTE Administration Dronedarone 400 mg 07/30/20 21:00 07/31/20 10:00 Dronedarone Hcl 400 Mg Tablet PO 400 mg BID ANTONETTE Administration Levothyroxine Sodium 112 mcg 07/30/20 19:25 07/31/20 10:00 Levothyroxine Sodium 112 Mcg Tablet PO 112 mcg DAILY ANTONETTE Administration Loperamide HCl 2 mg 07/31/20 10:32 Loperamide Hcl 2 Mg Capsule PO Q4H PRN Diarrhea Loratadine 10 mg 07/31/20 09:00 07/31/20 10:00 Loratadine 10 Mg Tablet PO 10 mg DAILY ANTONETTE Administration Magnesium Oxide 400 mg 07/31/20 09:00 07/31/20 09:59 Magnesium Oxide 400 Mg Tablet PO 400 mg DAILY ANTONETTE Administration Meclizine HCl 25 mg 07/30/20 19:25 Meclizine Hcl 25 Mg Tablet PO TID PRN dizziness Metoprolol Tartrate 12.5 mg 07/30/20 21:00 07/31/20 09:58 Metoprolol Tartrate 25 Mg Tablet PO 12.5 mg BID ANTONETTE Administration Protocol Ondansetron HCl 4 mg 07/30/20 19:25 Ondansetron Hcl 4 Mg/2 Ml Vial IVPUSH Q8H PRN Nausea and Vomiting Pharmacy Consult 1 each 07/30/20 11:34 Consult Rx Perform Med Rec MISCELLANE ONCE PRN Consult order Potassium Chloride 20 meq 07/31/20 09:00 07/31/20 10:00 Potassium Chloride Packet 20 Meq Packet PO 20 meq DAILY ANTONETTE Administration Risperidone 1 mg 07/30/20 19:25 Risperidone 0.5 Mg Tablet PO BEDTIME PRN anxiety Risperidone 1 mg 07/30/20 19:25 07/31/20 10:00 Risperidone 1 Mg Tablet PO 1 mg TID ANTONETTE Administration Rivaroxaban 20 mg 07/30/20 21:00 07/30/20 20:01 Rivaroxaban 20 Mg Tablet PO 20 mg BEDTIME ANTONETTE Administration Sertraline HCl 75 mg 07/31/20 09:00 07/31/20 09:57 Sertraline Hcl 50 Mg Tablet PO 75 mg DAILY ANTONETTE Administration Sertraline HCl 100 mg 07/31/20 09:00 07/31/20 09:59 Sertraline Hcl 100 Mg Tablet PO 100 mg DAILY ANTONETTE Administration Sodium Chloride 3 ml 07/30/20 19:25 07/31/20 09:56 0.9 % Sodium Chloride Flush 3 Ml Syringe IVFLUSH 3 ml QSHIFT ANTONETTE Administration Labs CBC & Chem 7: 07/31/20 05:42 07/31/20 05:42 Assessment and Plan (1) Atypical pneumonia: Status: Acute (2) COVID-19: Status: Acute (3) Acute respiratory failure with hypoxia: Status: Acute Assessment and Plan: A 64 years old lady with PMH of asthma, HLD, AFib post ppm, hypothyroid, depression among others who presented to the hospital complaining of 1 week of shortness of breath, worsening lethargy and cough. Acute hypoxic respiratory failure Secondary to COVID-19 infection Continue O2 supplement to keep sat in 90s Continue dexamethasone 6 mg daily for now Albuterol inhaler as needed Pending pulmonology evaluation Monitor blood work and keep on telemetry for now Atypical pneumonia CXR reporting infiltrate She could have a bacteria superinfection Continue with azithromycin for now Morbid obesity BMI of 48 Advised to lose weight as it is affecting her medical condition Atrial fibrillation post ppm Continue Multaq and metoprolol Continue Xarelto On heart monitor Schizophrenia continue risperidone DVT PPX Xarelto
--- NOTE | 2020-07-31 11:57 | CONS_ITS ---
DATE OF SERVICE: 07/31/2020 REFERRING PHYSICIAN: Jessica Romero MD HISTORY OF PRESENT ILLNESS: The patient is a 64-year-old female, admitted through emergency room yesterday with a 1-week history of cough and shortness of breath with mild chest congestion. The patient also had mild nausea and episode of diarrhea. The patient denies having had any fever or chills. The reason she came to the emergency room was because of increasing shortness of breath. She was having a hard time even to walk around. In the emergency room, her O2 saturation was in 80s on room air. PAST MEDICAL HISTORY: Reviewed from the medical records and includes the following; bronchial asthma, hypertension, hypothyroidism, cardiac disease with permanent pacemaker, and schizophrenic disorder. REVIEW OF SYSTEMS: Includes mainly shortness of breath, cough, and congested feeling in the upper airways. The patient denied fever, chills, or weakness. The patient denied chest pain. The patient also denied abdominal pain. The patient denied any urinary symptoms. SOCIAL HISTORY: The patient is a nonsmoker. PHYSICAL EXAMINATION: GENERAL: The patient is alert and oriented. EARS, NOSE, AND THROAT: Not remarkable. NECK: Supple. Trachea midline. No lymphadenopathy. CHEST: Good air sounds on both sides and a few inspiratory crackles heard over the basilar areas. Also a few scattered wheezes heard. CARDIAC: Not remarkable. ABDOMEN: Flat, soft, and nontender. EXTREMITIES: No edema or varicosities. LABORATORY DATA: CBC; white cell count 3.9, hemoglobin 11.3, and platelet count 244. IMAGING: The chest x-ray on 07/30 shows slightly enlarged cardiac silhouette. There is a vague density in the left lung base. CT scan of the chest is impressive and it shows ground-glass opacities in both lungs in the lower lobes and more like a denser opacity at the left lung base. No cavitation. Serology: COVID-19 test is positive. IMPRESSION: 1. Acute COVID-19 infection. 2. COVID-19 related pneumonitis. 3. Respiratory failure with hypoxemia secondary to above. 4. Past history of bronchial asthma. RECOMMENDATIONS: 1. The patient should be treated with dexamethasone 6 mg IV daily. 2. Oxygen supplementation as needed to keep O2 saturation above 90%. 3. Albuterol Medihaler 2 puffs q.6 hours p.r.n. 4. If the condition worsens, then consider treating with remdesivir. Thank you very much for asking me to see this patient and I will be glad to follow her up. MD ADA Larios/DOMINGO / [phone]
[2020-07-31] MEDS: Loperamide HCl 2 MG CAPSULE PO (12:28)
--- NOTE | 2020-07-31 13:27 | MHC.CM.PN ---
IMM 07/31/20 Female 64 dx Covid. She lives alone. She is active with [facility]. She would like additional referrals. She wants options. She ambulates with a cane. DP home with services private transport.
--- NOTE | 2020-07-31 14:42 | MHC.CM.PN ---
DP Pt has decided to continue with [facility] home care services. CM will follow.
[2020-07-31] MEDS: Azithromycin 500 MG TABLET PO (15:57)
[2020-07-31] MEDS: Atorvastatin Calcium 80 MG TABLET PO (20:37)
[2020-07-31] MEDS: Rivaroxaban 20 MG TABLET PO (20:37)
[2020-08-01] VITALS (9 sets, daily range): BP systolic 119–175; BP diastolic 58–92; PULSE 60–88; RESP 18–20; TEMP 35.9–36.9; O2SAT 3–96
[2020-08-01] MEDS: risperiDONE 0.5 MG TABLET 1 MG PO (00:05)
[2020-08-01 06:55] LABS: Hematocrit 36.8 % (37-47); Hemoglobin 11.6 g/dl (12.0-16.0); Mean Corpuscular HGB Conc 31.5 g/dl (31.0-35.0); Mean Corpuscular Hemoglobin 28.6 pg (27.0-33.0); Mean Corpuscular Volume 90.9 fL (80-98); Mean Platelet Volume 9.2 fL (9.4-12.3); Platelet Count 324 X10*3/uL (160-400); Red Blood Count 4.05 X10*6/uL (4.20-5.50); Red Cell Distribution Width 14.2 % (11.0-16.0); White Blood Count 8.6 X10*3/uL (4.8-10.8)
[2020-08-01 07:18] LABS: Anion Gap 12 (12-20); Blood Urea Nitrogen 14 mg/dL (9-16); Calcium 7.9 mg/dL (8.4-10.2); Carbon Dioxide 28 mmol/L (22-29); Chloride 104 mmol/L (96-108); Creatinine Clr Calc Pharmacy 106.3; Estimated Glomerular Filt Rate > 60; Glucose Random 80 mg/dL (60-115); Potassium 3.8 mmol/l (3.3-5.1); Sodium 140 mmol/L (135-145)
[2020-08-01 07:29] LABS: Glucose, Whole Blood 103 mg/dL (60-115)
--- NOTE | 2020-08-01 09:31 | PM.PNPUL ---
Subjective Subjective Date of Service: 08/01/20 Principal diagnosis: Covid infection/covid pneumonitis Interval history: Day reviewed the case. Patient is stable and feeling better, remains afebrile, vital signs are stable no significant respiratory distress. Objective Data Labs CBC & Chem 7: 08/01/20 05:46 08/01/20 05:46 Labs: Laboratory Results - last 24 hr 08/01/20 08/01/20 08/01/20 05:46 05:46 07:26 WBC 8.6 RBC 4.05 L Hgb 11.6 L Hct 36.8 L MCV 90.9 MCH 28.6 MCHC 31.5 RDW 14.2 Plt Count 324 D MPV 9.2 L Absolute Nucleated RBC 0.000 Nucleated RBC % (auto) 0.0 Sodium 140 Potassium 3.8 D Chloride 104 Carbon Dioxide 28 Anion Gap 12 BUN 14 Creatinine 0.68 Estim Creat Clear Calc 106.3 Estimated GFR > 60 POC Glucose 103 Random Glucose 80 D Calcium 7.9 L Review of Systems Review of Systems Yes all other systems are reviewed and are negative Cardiovascular: Reports dyspnea Respiratory: Reports cough and Reports dyspnea Physical Exam Vital Signs: Vital Signs: Last Vital Signs Temp 98 F 08/01/20 07:23 Pulse 88 08/01/20 07:23 Resp 20 08/01/20 07:23 BP 158/74 H 08/01/20 07:23 Pulse Ox 92 08/01/20 07:23 Body Mass Index 48.0 Assessment and Plan Assessment and plan (1) Acute respiratory failure with hypoxia: Problem details: Continue O2 supplementation to keep O2 sat above 90 % Advise pt. to do deep breathing exercises Status: Acute (2) COVID-19: Problem details: Cont. Dexamethasone 6 mg IV daily .to complete course of 10 days . Status: Acute Time Spent With Patient Time: Total time spent is greater than 50% in coordination of care (as documented) at patient's floor/unit and/or counseling patient: Time with patient: less than 15 minutes
[2020-08-01] MEDS: Potassium Chloride Packet 20 MEQ PACKET PO (09:35)
[2020-08-01] MEDS: 0.9 % Sodium Chloride Flush 3 ML SYRINGE IVFLUSH ×2 (09:35→16:59)
[2020-08-01] MEDS: dexAMETHasone sod phosphate 4 MG/ML VIAL 6 MG IVPUSH (09:36)
[2020-08-01] MEDS: Metoprolol Tartrate 25 MG TABLET 12.5 MG PO ×2 (09:37→20:26)
[2020-08-01] MEDS: Benztropine Mesylate 1 MG TABLET PO ×2 (09:38→20:26)
[2020-08-01] MEDS: Levothyroxine Sodium 112 MCG TABLET PO (09:38)
[2020-08-01] MEDS: Sertraline HCL 50 MG TABLET 75 MG PO (09:38)
[2020-08-01] MEDS: Dronedarone HCl 400 MG TABLET PO ×2 (09:39→20:26)
[2020-08-01] MEDS: risperiDONE 1 MG TABLET PO ×3 (09:39→20:26)
[2020-08-01] MEDS: Sertraline HCL 100 MG TABLET PO (09:39)
[2020-08-01] MEDS: Magnesium Oxide 400 MG TABLET PO (09:39)
[2020-08-01] MEDS: Loratadine 10 MG TABLET PO (09:39)
--- NOTE | 2020-08-01 14:16 | HO.PM.IMPN ---
Subjective Subjective Date of Service: 08/01/20 Interval History: Patient seen in follow-up of COVID infection, she complains of being feverish asking for Tylenol has dry cough, no other acute issues overnight. Review of Systems General no headache no dizziness, complaining of feeling feverish. CVS no chest pain, no palpitation. Respiratory dry cough, no sputum production, no respiratory distress. Gastrointestinal no nausea, no vomiting, no abdominal pain Physical Exam Vital Signs: Vital Signs: Last Vital Signs Temp 97.7 F 08/01/20 11:02 Pulse 60 08/01/20 11:02 Resp 20 08/01/20 11:02 BP 124/92 H 08/01/20 11:02 Pulse Ox 96 08/01/20 11:02 Body Mass Index 48.0 General patient resting comfortably in no acute distress. Neck is supple no JVD. CVS regular rate rhythm, Respiratory lungs coarse breath sounds, no respiratory distress Gastrointestinal abdomen soft, nontender, bowel sounds audible, no guarding Extremities no clubbing cyanosis or edema. Neuro nonfocal Skin no rash Objective Data Current Medications Generic Name Dose Route Start Last Admin Trade Name Freq PRN Reason Stop Dose Admin Acetaminophen 650 mg 07/30/20 19:25 Acetaminophen 325 Mg Tablet PO Q6H PRN Pain, Mild (Pain Scale 1-3) Albuterol Sulfate 2 puff 07/30/20 19:25 Albuterol Sulfate 90 Mcg 8 Gm Inhaler INHALE Q4H PRN dyspnea Atorvastatin Calcium 80 mg 07/30/20 21:00 07/31/20 20:37 Atorvastatin Calcium 80 Mg Tablet PO 80 mg BEDTIME ANTONETTE Administration Azithromycin 500 mg 07/31/20 14:00 07/31/20 15:57 Azithromycin 500 Mg Tablet PO 500 mg Q24H ANTONETTE Administration Benztropine Mesylate 1 mg 07/30/20 21:00 08/01/20 09:38 Benztropine Mesylate 1 Mg Tablet PO 1 mg BID ANTONETTE Administration Dexamethasone Sodium Phosphate 6 mg 07/30/20 19:25 08/01/20 09:36 Dexamethasone Sod Phosphate 4 Mg/Ml Vial IVPUSH 6 mg DAILY ANTONETTE Administration Dronedarone 400 mg 07/30/20 21:00 08/01/20 09:39 Dronedarone Hcl 400 Mg Tablet PO 400 mg BID ANTONETTE Administration Levothyroxine Sodium 112 mcg 07/30/20 19:25 08/01/20 09:38 Levothyroxine Sodium 112 Mcg Tablet PO 112 mcg DAILY ANTONETTE Administration Loperamide HCl 2 mg 07/31/20 10:32 07/31/20 12:28 Loperamide Hcl 2 Mg Capsule PO 2 mg Q4H PRN Administration Diarrhea Loratadine 10 mg 07/31/20 09:00 08/01/20 09:39 Loratadine 10 Mg Tablet PO 10 mg DAILY ANTONETTE Administration Magnesium Oxide 400 mg 07/31/20 09:00 08/01/20 09:39 Magnesium Oxide 400 Mg Tablet PO 400 mg DAILY ANTONETTE Administration Meclizine HCl 25 mg 07/30/20 19:25 Meclizine Hcl 25 Mg Tablet PO TID PRN dizziness Metoprolol Tartrate 12.5 mg 07/30/20 21:00 08/01/20 09:37 Metoprolol Tartrate 25 Mg Tablet PO 12.5 mg BID ANTONETTE Administration Protocol Ondansetron HCl 4 mg 07/30/20 19:25 Ondansetron Hcl 4 Mg/2 Ml Vial IVPUSH Q8H PRN Nausea and Vomiting Pharmacy Consult 1 each 07/30/20 11:34 Consult Rx Perform Med Rec MISCELLANE ONCE PRN Consult order Potassium Chloride 20 meq 07/31/20 09:00 08/01/20 09:35 Potassium Chloride Packet 20 Meq Packet PO 20 meq DAILY ANTONETTE Administration Risperidone 1 mg 07/30/20 19:25 08/01/20 00:05 Risperidone 0.5 Mg Tablet PO 1 mg BEDTIME PRN Administration anxiety Risperidone 1 mg 07/30/20 19:25 08/01/20 09:39 Risperidone 1 Mg Tablet PO 1 mg TID ANTONETTE Administration Rivaroxaban 20 mg 07/30/20 21:00 07/31/20 20:37 Rivaroxaban 20 Mg Tablet PO 20 mg BEDTIME ANTONETTE Administration Sertraline HCl 75 mg 07/31/20 09:00 08/01/20 09:38 Sertraline Hcl 50 Mg Tablet PO 75 mg DAILY ANTONETTE Administration Sertraline HCl 100 mg 07/31/20 09:00 08/01/20 09:39 Sertraline Hcl 100 Mg Tablet PO 100 mg DAILY ANTONETTE Administration Sodium Chloride 3 ml 07/30/20 19:25 08/01/20 09:35 0.9 % Sodium Chloride Flush 3 Ml Syringe IVFLUSH 3 ml QSHIFT ANTONETTE Administration Labs CBC & Chem 7: 08/01/20 05:46 08/01/20 05:46 Assessment and Plan (1) Acute respiratory failure with hypoxia: Status: Acute (2) Asthma: Status: Acute (3) COVID-19: Status: Acute Assessment and Plan: 64 years old lady with PMH of asthma, HLD, AFib post ppm, hypothyroid, depression among others who presented to the hospital complaining of 1 week of shortness of breath, worsening lethargy and cough. Acute hypoxic respiratory failure Secondary to COVID-19 infection and pneumonitis Continue O2 supplement to keep sat in 90s,Continue IV dexamethasone 6 mg daily and switched to by mouth for total 10 days upon discharge Continue Albuterol inhaler as needed, patient seen by Dr. Gaston he agrees with above treatment Gradually wean oxygen recommend out of bed to chair, add cough medication COVID-[address] chest showed pneumonitis or atypical viral pneumonia, trace bilateral effusion and enlarged heart and atelectasis at left lung base , continue azithromycin day 2/5 and add incentive spirometry Procalcitonin 0.07. Morbid obesity BMI of 48 Advised to lose weight as it is affecting her medical condition Atrial fibrillation post ppm Heart rate regular, Continue Multaq, metoprolol and Xarelto Schizophrenia continue risperidone, no psychiatric decompensation noted. DVT PPX Xarelto
[2020-08-01] MEDS: Azithromycin 500 MG TABLET PO (14:19)
[2020-08-01] MEDS: Acetaminophen 325 MG TABLET 650 MG PO (14:19)
[2020-08-01] MEDS: Atorvastatin Calcium 80 MG TABLET PO (20:26)
[2020-08-01] MEDS: Rivaroxaban 20 MG TABLET PO (20:26)
--- NOTE | 2020-08-01 22:33 | PC.NURSE ---
Pt able to make needs known and ambulate around room. No c/o pain, n/v. Denies SOB.
[2020-08-02] VITALS (7 sets, daily range): BP systolic 137–176; BP diastolic 64–86; PULSE 57–65; RESP 16–20; TEMP 36.2–36.6; O2SAT 91–93
[2020-08-02] MEDS: 0.9 % Sodium Chloride Flush 3 ML SYRINGE IVFLUSH ×3 (00:26→16:04)
[2020-08-02] MEDS: dexAMETHasone sod phosphate 4 MG/ML VIAL 6 MG IVPUSH (09:06)
[2020-08-02] MEDS: Potassium Chloride Packet 20 MEQ PACKET PO (09:06)
[2020-08-02] MEDS: Sertraline HCL 50 MG TABLET 75 MG PO (09:07)
[2020-08-02] MEDS: Sertraline HCL 100 MG TABLET PO (09:07)
[2020-08-02] MEDS: Benztropine Mesylate 1 MG TABLET PO ×2 (09:08→21:32)
[2020-08-02] MEDS: Magnesium Oxide 400 MG TABLET PO (09:08)
[2020-08-02] MEDS: Loratadine 10 MG TABLET PO (09:08)
[2020-08-02] MEDS: Metoprolol Tartrate 25 MG TABLET 12.5 MG PO ×2 (09:08→21:32)
[2020-08-02] MEDS: Levothyroxine Sodium 112 MCG TABLET PO (09:08)
[2020-08-02] MEDS: Dronedarone HCl 400 MG TABLET PO ×2 (09:11→21:32)
[2020-08-02] MEDS: risperiDONE 1 MG TABLET PO ×3 (09:28→21:34)
--- NOTE | 2020-08-02 13:36 | MHC.CM.PN ---
Female 64 DX Covid+. DP Home with resumption of [facility] homecare. She will need assist w transportation at [place]. CM will follow.
[2020-08-02] MEDS: Azithromycin 500 MG TABLET PO (14:13)
--- NOTE | 2020-08-02 16:22 | P.PNIM_ITS ---
Subjective Subjective Date of Service: 08/02/20 Interval History: The patient was seen and evaluated this morning Laying in bed, feels comfortable Denies any fever, chills or Chest pain Complaining of mild shortness of breath and coughing No reported other overnight events. Systemic review: No fever, chills or weakness No chest pain, palpitation reporting mild shortness of breath and coughing No abdominal pain, nausea or vomiting No urinary symptoms No any rash or wounds Physical Exam Vital Signs: Vital Signs: Last Vital Signs Temp 97.3 F 08/02/20 15:09 Pulse 57 08/02/20 15:09 Resp 20 08/02/20 15:09 BP 137/65 08/02/20 15:09 Pulse Ox 92 08/02/20 15:09 Body Mass Index 48.0 Constitutional : Alert, oriented, not in distress Neck : Normal inspection, Supple Cardiovascular : RRR, S1 S2, no lower extremity edema Respiratory : Not in respiratory distress, on oxygen supplement, chest moving bilaterally Gastrointestinal: soft, lax, Normal bowel sounds, Non tender Skin : Warm/Dry, No rash Neurological : Alert & oriented x3, No focal deficit Objective Data Current Medications Generic Name Dose Route Start Last Admin Trade Name Freq PRN Reason Stop Dose Admin Acetaminophen 650 mg 07/30/20 19:25 08/01/20 14:19 Acetaminophen 325 Mg Tablet PO 650 mg Q6H PRN Administration Pain, Mild (Pain Scale 1-3) Albuterol Sulfate 2 puff 07/30/20 19:25 Albuterol Sulfate 90 Mcg 8 Gm Inhaler INHALE Q4H PRN dyspnea Atorvastatin Calcium 80 mg 07/30/20 21:00 08/01/20 20:26 Atorvastatin Calcium 80 Mg Tablet PO 80 mg BEDTIME ANTONETTE Administration Azithromycin 500 mg 07/31/20 14:00 08/02/20 14:13 Azithromycin 500 Mg Tablet PO 500 mg Q24H ANTONETTE Administration Benztropine Mesylate 1 mg 07/30/20 21:00 08/02/20 09:08 Benztropine Mesylate 1 Mg Tablet PO 1 mg BID ANTONETTE Administration Dexamethasone Sodium Phosphate 6 mg 07/30/20 19:25 08/02/20 09:06 Dexamethasone Sod Phosphate 4 Mg/Ml Vial IVPUSH 6 mg DAILY ANTONETTE Administration Dronedarone 400 mg 07/30/20 21:00 08/02/20 09:11 Dronedarone Hcl 400 Mg Tablet PO 400 mg BID ANTONETTE Administration Guaifenesin/Dextromethorphan 10 ml 08/01/20 14:29 Guaifenesin Dm 200/20/10 Ml 10 Ml Syrup PO Q6H PRN cough Levothyroxine Sodium 112 mcg 07/30/20 19:25 08/02/20 09:08 Levothyroxine Sodium 112 Mcg Tablet PO 112 mcg DAILY ANTONETTE Administration Loperamide HCl 2 mg 07/31/20 10:32 07/31/20 12:28 Loperamide Hcl 2 Mg Capsule PO 2 mg Q4H PRN Administration Diarrhea Loratadine 10 mg 07/31/20 09:00 08/02/20 09:08 Loratadine 10 Mg Tablet PO 10 mg DAILY ANTONETTE Administration Magnesium Oxide 400 mg 07/31/20 09:00 08/02/20 09:08 Magnesium Oxide 400 Mg Tablet PO 400 mg DAILY ANTONETTE Administration Meclizine HCl 25 mg 07/30/20 19:25 Meclizine Hcl 25 Mg Tablet PO TID PRN dizziness Metoprolol Tartrate 12.5 mg 07/30/20 21:00 08/02/20 09:08 Metoprolol Tartrate 25 Mg Tablet PO 12.5 mg BID ANTONETTE Administration Protocol Ondansetron HCl 4 mg 07/30/20 19:25 Ondansetron Hcl 4 Mg/2 Ml Vial IVPUSH Q8H PRN Nausea and Vomiting Pharmacy Consult 1 each 07/30/20 11:34 Consult Rx Perform Med Rec MISCELLANE ONCE PRN Consult order Potassium Chloride 20 meq 07/31/20 09:00 08/02/20 09:06 Potassium Chloride Packet 20 Meq Packet PO 20 meq DAILY ANTONETTE Administration Risperidone 1 mg 07/30/20 19:25 08/01/20 00:05 Risperidone 0.5 Mg Tablet PO 1 mg BEDTIME PRN Administration anxiety Risperidone 1 mg 07/30/20 19:25 08/02/20 15:19 Risperidone 1 Mg Tablet PO 1 mg TID ANTONETTE Administration Rivaroxaban 20 mg 07/30/20 21:00 08/01/20 20:26 Rivaroxaban 20 Mg Tablet PO 20 mg BEDTIME ANTONETTE Administration Sertraline HCl 75 mg 07/31/20 09:00 08/02/20 09:07 Sertraline Hcl 50 Mg Tablet PO 75 mg DAILY ANTONETTE Administration Sertraline HCl 100 mg 07/31/20 09:00 08/02/20 09:07 Sertraline Hcl 100 Mg Tablet PO 100 mg DAILY ANTONETTE Administration Sodium Chloride 3 ml 07/30/20 19:25 08/02/20 16:04 0.9 % Sodium Chloride Flush 3 Ml Syringe IVFLUSH 3 ml QSHIFT ANTONETTE Administration Labs CBC & Chem 7: 08/01/20 05:46 08/01/20 05:46 Assessment and Plan (1) Atypical pneumonia: Status: Acute (2) COVID-19: Status: Acute (3) Acute respiratory failure with hypoxia: Status: Acute (4) Asthma: Status: Acute Assessment and Plan: A 64 years old lady with PMH of asthma, HLD, AFib post ppm, hypothyroid, depre ssion among others who presented to the hospital complaining of 1 week of shortness of breath, worsening lethargy and cough. Acute hypoxic respiratory failure Secondary to COVID-19 infection Continue O2 supplement to keep sat in 90s Continue dexamethasone 6 mg daily for now Albuterol inhaler as needed pulmonology evaluation appreciated, Monitor blood work and keep on telemetry for now Atypical pneumonia\pneumonitis CXR reporting infiltrate She could have a bacteria superinfection Continue with azithromycin 3/5 Morbid obesity BMI of 48 Advised to lose weight as it is affecting her medical condition Atrial fibrillation post ppm Continue Multaq and metoprolol Continue Xarelto On heart monitor Schizophrenia continue risperidone DVT PPX Xarelto
[2020-08-02] MEDS: Atorvastatin Calcium 80 MG TABLET PO (21:32)
[2020-08-02] MEDS: Rivaroxaban 20 MG TABLET PO (21:33)
[2020-08-03] VITALS (9 sets, daily range): BP systolic 117–175; BP diastolic 56–84; PULSE 56–91; RESP 16–20; TEMP 36.1–36.7; O2SAT 90–96
[2020-08-03] MEDS: 0.9 % Sodium Chloride Flush 3 ML SYRINGE IVFLUSH ×4 (00:24→21:40)
[2020-08-03] MEDS: Acetaminophen 325 MG TABLET 650 MG PO (03:27)
[2020-08-03 06:54] LABS: Hematocrit 35.3 % (37-47); Hemoglobin 11.4 g/dl (12.0-16.0); Mean Corpuscular HGB Conc 32.3 g/dl (31.0-35.0); Mean Corpuscular Hemoglobin 28.6 pg (27.0-33.0); Mean Corpuscular Volume 88.7 fL (80-98); Mean Platelet Volume 8.8 fL (9.4-12.3); Platelet Count 360 X10*3/uL (160-400); Red Blood Count 3.98 X10*6/uL (4.20-5.50)
[2020-08-03 07:16] LABS: Anion Gap 12 (12-20); Blood Urea Nitrogen 14 mg/dL (9-16); Carbon Dioxide 27 mmol/L (22-29); Chloride 105 mmol/L (96-108); Creatinine Clr Calc Pharmacy 113.1; Estimated Glomerular Filt Rate > 60; Glucose Random 85 mg/dL (60-115); Potassium 4.2 mmol/l (3.3-5.1); Sodium 140 mmol/L (135-145)
[2020-08-03] MEDS: risperiDONE 1 MG TABLET PO ×3 (09:36→21:41)
[2020-08-03] MEDS: Dronedarone HCl 400 MG TABLET PO ×2 (09:36→21:41)
[2020-08-03] MEDS: dexAMETHasone sod phosphate 4 MG/ML VIAL 6 MG IVPUSH (09:36)
[2020-08-03] MEDS: Magnesium Oxide 400 MG TABLET PO (09:36)
[2020-08-03] MEDS: guaiFENesin DM 200/20/10 ML 10 ML SYRUP PO ×2 (09:36→15:26)
[2020-08-03] MEDS: Benztropine Mesylate 1 MG TABLET PO ×2 (09:36→21:41)
[2020-08-03] MEDS: Levothyroxine Sodium 112 MCG TABLET PO (09:37)
[2020-08-03] MEDS: Loratadine 10 MG TABLET PO (09:37)
[2020-08-03] MEDS: Sertraline HCL 100 MG TABLET PO (09:37)
[2020-08-03] MEDS: Metoprolol Tartrate 25 MG TABLET 12.5 MG PO ×2 (09:37→21:41)
[2020-08-03] MEDS: Potassium Chloride Packet 20 MEQ PACKET PO (09:37)
[2020-08-03] MEDS: Sertraline HCL 50 MG TABLET 75 MG PO (09:37)
[2020-08-03] MEDS: Azithromycin 500 MG TABLET PO (14:10)
--- NOTE | 2020-08-03 14:56 | HO.PM.IMPN ---
Subjective Subjective Date of Service: 08/03/20 Interval History: The patient was seen and evaluated this morning Laying in bed, feels comfortable Denies any fever, chills or Chest pain Complaining of mild shortness of breath and coughing and requiring more oxygen overnight No reported other overnight events. Systemic review: No fever, chills or weakness No chest pain, palpitation reporting mild shortness of breath and coughing No abdominal pain, nausea or vomiting No urinary symptoms No any rash or wounds Physical Exam Vital Signs: Vital Signs: Last Vital Signs Temp 97.4 F 08/03/20 11:25 Pulse 61 08/03/20 11:25 Resp 18 08/03/20 11:25 BP 132/61 08/03/20 11:25 Pulse Ox 93 08/03/20 11:25 Body Mass Index 48.0 Constitutional : Alert, oriented, not in distress Neck : Normal inspection, Supple Cardiovascular : RRR, S1 S2, no lower extremity edema Respiratory : Good air movement, not in distress, no crackles, wheezes or rhonchi Gastrointestinal: soft, lax, Normal bowel sounds, Non tender Skin : Warm/Dry, No rash Neurological : Alert & oriented x3, No focal deficit Objective Data Current Medications Generic Name Dose Route Start Last Admin Trade Name Freq PRN Reason Stop Dose Admin Acetaminophen 650 mg 07/30/20 19:25 08/03/20 03:27 Acetaminophen 325 Mg Tablet PO 650 mg Q6H PRN Administration Pain, Mild (Pain Scale 1-3) Albuterol Sulfate 2 puff 07/30/20 19:25 Albuterol Sulfate 90 Mcg 8 Gm Inhaler INHALE Q4H PRN dyspnea Atorvastatin Calcium 80 mg 07/30/20 21:00 08/02/20 21:32 Atorvastatin Calcium 80 Mg Tablet PO 80 mg BEDTIME ANTONETTE Administration Azithromycin 500 mg 07/31/20 14:00 08/03/20 14:10 Azithromycin 500 Mg Tablet PO 500 mg Q24H ANTONETTE Administration Benztropine Mesylate 1 mg 07/30/20 21:00 08/03/20 09:36 Benztropine Mesylate 1 Mg Tablet PO 1 mg BID ANTONETTE Administration Dexamethasone Sodium Phosphate 6 mg 07/30/20 19:25 08/03/20 09:36 Dexamethasone Sod Phosphate 4 Mg/Ml Vial IVPUSH 6 mg DAILY ANTONETTE Administration Dronedarone 400 mg 07/30/20 21:00 08/03/20 09:36 Dronedarone Hcl 400 Mg Tablet PO 400 mg BID ANTONETTE Administration Guaifenesin/Dextromethorphan 10 ml 08/01/20 14:29 08/03/20 09:36 Guaifenesin Dm 200/20/10 Ml 10 Ml Syrup PO 10 ml Q6H PRN Administration cough Levothyroxine Sodium 112 mcg 07/30/20 19:25 08/03/20 09:37 Levothyroxine Sodium 112 Mcg Tablet PO 112 mcg DAILY ANTONETTE Administration Loperamide HCl 2 mg 07/31/20 10:32 07/31/20 12:28 Loperamide Hcl 2 Mg Capsule PO 2 mg Q4H PRN Administration Diarrhea Loratadine 10 mg 07/31/20 09:00 08/03/20 09:37 Loratadine 10 Mg Tablet PO 10 mg DAILY ANTONETTE Administration Magnesium Oxide 400 mg 07/31/20 09:00 08/03/20 09:36 Magnesium Oxide 400 Mg Tablet PO 400 mg DAILY ANTONETTE Administration Meclizine HCl 25 mg 07/30/20 19:25 Meclizine Hcl 25 Mg Tablet PO TID PRN dizziness Metoprolol Tartrate 12.5 mg 07/30/20 21:00 08/03/20 09:37 Metoprolol Tartrate 25 Mg Tablet PO 12.5 mg BID ANTONETTE Administration Protocol Ondansetron HCl 4 mg 07/30/20 19:25 Ondansetron Hcl 4 Mg/2 Ml Vial IVPUSH Q8H PRN Nausea and Vomiting Pharmacy Consult 1 each 07/30/20 11:34 Consult Rx Perform Med Rec MISCELLANE ONCE PRN Consult order Potassium Chloride 20 meq 07/31/20 09:00 08/03/20 09:37 Potassium Chloride Packet 20 Meq Packet PO 20 meq DAILY ANTONETTE Administration Risperidone 1 mg 07/30/20 19:25 08/01/20 00:05 Risperidone 0.5 Mg Tablet PO 1 mg BEDTIME PRN Administration anxiety Risperidone 1 mg 07/30/20 19:25 08/03/20 14:10 Risperidone 1 Mg Tablet PO 1 mg TID ANTONETTE Administration Rivaroxaban 20 mg 07/30/20 21:00 08/02/20 21:33 Rivaroxaban 20 Mg Tablet PO 20 mg BEDTIME ANTONETTE Administration Sertraline HCl 75 mg 07/31/20 09:00 08/03/20 09:37 Sertraline Hcl 50 Mg Tablet PO 75 mg DAILY ANTONETTE Administration Sertraline HCl 100 mg 07/31/20 09:00 08/03/20 09:37 Sertraline Hcl 100 Mg Tablet PO 100 mg DAILY ANTONETTE Administration Sodium Chloride 3 ml 07/30/20 19:25 08/03/20 09:36 0.9 % Sodium Chloride Flush 3 Ml Syringe IVFLUSH 3 ml QSHIFT ANTONETTE Administration Labs CBC & Chem 7: 08/03/20 06:12 08/03/20 06:12 Assessment and Plan (1) Atypical pneumonia: Status: Acute (2) COVID-19: Status: Acute (3) Acute respiratory failure with hypoxia: Status: Acute (4) Asthma: Status: Acute Assessment and Plan: A 64 years old lady with PMH of asthma, HLD, AFib post ppm, hypothyroid, depression among others who presented to the hospital complaining of 1 week of shortness of breath, worsening lethargy and cough. Acute hypoxic respiratory failure Secondary to COVID-19 infection Requiring more oxygen today up to 5 L Continue O2 supplement to keep sat in 90s and wean as tolerated Continue dexamethasone 6 mg daily for now Albuterol inhaler as needed pulmonology evaluation appreciated, Monitor blood work and keep on telemetry for now Atypical pneumonia\pneumonitis CXR reporting infiltrate She could have a bacteria superinfection Continue with azithromycin 4/5 Morbid obesity BMI of 48 Advised to lose weight as it is affecting her medical condition Atrial fibrillation post ppm Continue Multaq and metoprolol Continue Xarelto On heart monitor Schizophrenia continue risperidone DVT PPX Xarelto
--- NOTE | 2020-08-03 15:14 | PC.NURSE ---
pt easily out of breath when out of bed - keeping o2 on patient when OOB at all times. Sat mid 90s on 4L of o2 NC Pt having some expiratory wheezing in a.m. and intermit nonproductive cough throughout the day. Robitussin seems to be effective w/cough. Educated pt on incentive spectrometry encouraged to use multiple times per hour. Pt reaching ~550 at this time. Pt is [place] and takes a few minutes to recover when back sitting but no other complaints at this time.
[2020-08-03] MEDS: Rivaroxaban 20 MG TABLET PO (21:40)
[2020-08-03] MEDS: Atorvastatin Calcium 80 MG TABLET PO (21:41)
[2020-08-04] VITALS (8 sets, daily range): BP systolic 137–165; BP diastolic 61–79; PULSE 57–88; RESP 16–20; TEMP 36.1–36.6; O2SAT 88–95
--- NOTE | 2020-08-04 04:39 | PC.NURSE ---
Patient's O2 sats 87-89% at 0400 vitals. Oxygen increased to 5L with no improvement and then increased to 6L and patient is maintaining sats between 90-91%
[2020-08-04] MEDS: Metoprolol Tartrate 25 MG TABLET 12.5 MG PO ×2 (08:19→20:26)
[2020-08-04] MEDS: Sertraline HCL 50 MG TABLET 75 MG PO (08:20)
[2020-08-04] MEDS: Potassium Chloride Packet 20 MEQ PACKET PO (08:20)
[2020-08-04] MEDS: Benztropine Mesylate 1 MG TABLET PO ×2 (08:20→20:26)
[2020-08-04] MEDS: Levothyroxine Sodium 112 MCG TABLET PO (08:20)
[2020-08-04] MEDS: Magnesium Oxide 400 MG TABLET PO (08:20)
[2020-08-04] MEDS: Dronedarone HCl 400 MG TABLET PO ×2 (08:20→20:26)
[2020-08-04] MEDS: risperiDONE 1 MG TABLET PO ×3 (08:20→20:26)
[2020-08-04] MEDS: Sertraline HCL 100 MG TABLET PO (08:20)
[2020-08-04] MEDS: Loratadine 10 MG TABLET PO (08:20)
[2020-08-04] MEDS: dexAMETHasone sod phosphate 4 MG/ML VIAL 6 MG IVPUSH (08:20)
[2020-08-04] MEDS: 0.9 % Sodium Chloride Flush 3 ML SYRINGE IVFLUSH ×2 (08:21→15:58)
[2020-08-04] MEDS: guaiFENesin DM 200/20/10 ML 10 ML SYRUP PO ×2 (08:45→20:26)
[2020-08-04] MEDS: Azithromycin 500 MG TABLET PO (14:07)
--- NOTE | 2020-08-04 14:19 | HO.PM.IMPN ---
Subjective Subjective Date of Service: 08/04/20 Interval History: The patient was seen and evaluated this morning Laying in bed, feels comfortable Denies any fever, chills or chest pain Requiring 6 L of oxygen this morning, reported dyspnea on exertion No reported other overnight events. Systemic review: No fever, chills or weakness No chest pain, palpitation dyspnea on exertion and coughing No abdominal pain, nausea or vomiting No urinary symptoms No any rash or wounds Physical Exam Vital Signs: Vital Signs: Last Vital Signs Temp 97.9 F 08/04/20 12:00 Pulse 60 08/04/20 12:00 Resp 20 08/04/20 12:00 BP 141/71 H 08/04/20 12:00 Pulse Ox 95 08/04/20 12:00 Body Mass Index 48.0 Constitutional : Alert, oriented, not in distress Neck : Normal inspection, Supple Cardiovascular : RRR, S1 S2, no lower extremity edema Respiratory : fair air entry bilaterally, decreased in the bases, fine scattered wheezes noted, Gastrointestinal: soft, lax, Normal bowel sounds, Non tender Skin : Warm/Dry, No rash Neurological : Alert & oriented x3, No focal deficit Objective Data Current Medications Generic Name Dose Route Start Last Admin Trade Name Freq PRN Reason Stop Dose Admin Acetaminophen 650 mg 07/30/20 19:25 08/03/20 03:27 Acetaminophen 325 Mg Tablet PO 650 mg Q6H PRN Administration Pain, Mild (Pain Scale 1-3) Albuterol Sulfate 2 puff 07/30/20 19:25 Albuterol Sulfate 90 Mcg 8 Gm Inhaler INHALE Q4H PRN dyspnea Atorvastatin Calcium 80 mg 07/30/20 21:00 08/03/20 21:41 Atorvastatin Calcium 80 Mg Tablet PO 80 mg BEDTIME ANTONETTE Administration Azithromycin 500 mg 07/31/20 14:00 08/04/20 14:07 Azithromycin 500 Mg Tablet PO 500 mg Q24H ANTONETTE Administration Benztropine Mesylate 1 mg 07/30/20 21:00 08/04/20 08:20 Benztropine Mesylate 1 Mg Tablet PO 1 mg BID ANTONETTE Administration Dexamethasone Sodium Phosphate 6 mg 07/30/20 19:25 08/04/20 08:20 Dexamethasone Sod Phosphate 4 Mg/Ml Vial IVPUSH 6 mg DAILY ANTONETTE Administration Dronedarone 400 mg 07/30/20 21:00 12/13/20 08:20 Dronedarone Hcl 400 Mg Tablet PO 400 mg BID ANTONETTE Administration Guaifenesin/Dextromethorphan 10 ml 08/01/20 14:29 08/04/20 08:45 Guaifenesin Dm 200/20/10 Ml 10 Ml Syrup PO 10 ml Q6H PRN Administration cough Levothyroxine Sodium 112 mcg 07/30/20 19:25 08/04/20 08:20 Levothyroxine Sodium 112 Mcg Tablet PO 112 mcg DAILY ANTONETTE Administration Loperamide HCl 2 mg 07/31/20 10:32 07/31/20 12:28 Loperamide Hcl 2 Mg Capsule PO 2 mg Q4H PRN Administration Diarrhea Loratadine 10 mg 07/31/20 09:00 08/04/20 08:20 Loratadine 10 Mg Tablet PO 10 mg DAILY ANTONETTE Administration Magnesium Oxide 400 mg 07/31/20 09:00 08/04/20 08:20 Magnesium Oxide 400 Mg Tablet PO 400 mg DAILY ANTONETTE Administration Meclizine HCl 25 mg 07/30/20 19:25 Meclizine Hcl 25 Mg Tablet PO TID PRN dizziness Metoprolol Tartrate 12.5 mg 07/30/20 21:00 08/04/20 08:19 Metoprolol Tartrate 25 Mg Tablet PO 12.5 mg BID ANTONETTE Administration Protocol Ondansetron HCl 4 mg 07/30/20 19:25 Ondansetron Hcl 4 Mg/2 Ml Vial IVPUSH Q8H PRN Nausea and Vomiting Pharmacy Consult 1 each 07/30/20 11:34 Consult Rx Perform Med Rec MISCELLANE ONCE PRN Consult order Potassium Chloride 20 meq 07/31/20 09:00 08/04/20 08:20 Potassium Chloride Packet 20 Meq Packet PO 20 meq DAILY ANTONETTE Administration Risperidone 1 mg 07/30/20 19:25 08/01/20 00:05 Risperidone 0.5 Mg Tablet PO 1 mg BEDTIME PRN Administration anxiety Risperidone 1 mg 07/30/20 19:25 08/04/20 14:07 Risperidone 1 Mg Tablet PO 1 mg TID ANTONETTE Administration Rivaroxaban 20 mg 07/30/20 21:00 08/03/20 21:40 Rivaroxaban 20 Mg Tablet PO 20 mg BEDTIME ANTONETTE Administration Sertraline HCl 75 mg 07/31/20 09:00 08/04/20 08:20 Sertraline Hcl 50 Mg Tablet PO 75 mg DAILY ANTONETTE Administration Sertraline HCl 100 mg 07/31/20 09:00 08/04/20 08:20 Sertraline Hcl 100 Mg Tablet PO 100 mg DAILY ANTONETTE Administration Sodium Chloride 3 ml 07/30/20 19:25 08/04/20 08:21 0.9 % Sodium Chloride Flush 3 Ml Syringe IVFLUSH 3 ml QSHIFT ANTONETTE Administration Labs CBC & Chem 7: 08/03/20 06:12 08/03/20 06:12 Assessment and Plan (1) Atypical pneumonia: Status: Acute (2) COVID-19: Status: Acute (3) Acute respiratory failure with hypoxia: Status: Acute (4) Asthma: Status: Acute Assessment and Plan: A 64 years old lady with PMH of asthma, HLD, AFib post ppm, hypothyroid, depression among others who presented to the hospital complaining of 1 week of shortness of breath, worsening lethargy and cough. Acute hypoxic respiratory failure Secondary to COVID-19 infection Requiring more oxygen today up to 5 L Continue O2 supplement to keep sat in 90s and wean as tolerated Continue dexamethasone 6 mg daily for now Albuterol inhaler as needed pulmonology evaluation appreciated, Monitor blood work and keep on telemetry for now Atypical pneumonia\pneumonitis CXR reporting infiltrate She could have a bacteria superinfection Continue with azithromycin 5/5 Morbid obesity BMI of 48 Advised to lose weight as it is affecting her medical condition Atrial fibrillation post ppm Continue Multaq and metoprolol Continue Xarelto On heart monitor Schizophrenia continue risperidone DVT PPX Xarelto
[2020-08-04] MEDS: Atorvastatin Calcium 80 MG TABLET PO (20:26)
[2020-08-04] MEDS: Rivaroxaban 20 MG TABLET PO (20:26)
[2020-08-05] VITALS (7 sets, daily range): BP systolic 124–163; BP diastolic 59–76; PULSE 57–62; RESP 18–20; TEMP 35.7–36.6; O2SAT 89–94
[2020-08-05] MEDS: dexAMETHasone sod phosphate 4 MG/ML VIAL 6 MG IVPUSH (08:27)
[2020-08-05] MEDS: 0.9 % Sodium Chloride Flush 3 ML SYRINGE IVFLUSH ×3 (08:28→20:44)
[2020-08-05] MEDS: Sertraline HCL 50 MG TABLET 75 MG PO (08:28)
[2020-08-05] MEDS: Potassium Chloride Packet 20 MEQ PACKET PO (08:28)
[2020-08-05] MEDS: Metoprolol Tartrate 25 MG TABLET 12.5 MG PO ×2 (08:29→20:45)
[2020-08-05] MEDS: Dronedarone HCl 400 MG TABLET PO ×2 (08:29→20:44)
[2020-08-05] MEDS: Levothyroxine Sodium 112 MCG TABLET PO (08:29)
[2020-08-05] MEDS: Loratadine 10 MG TABLET PO (08:29)
[2020-08-05] MEDS: Sertraline HCL 100 MG TABLET PO (08:29)
[2020-08-05] MEDS: Benztropine Mesylate 1 MG TABLET PO ×2 (08:30→20:45)
[2020-08-05] MEDS: Magnesium Oxide 400 MG TABLET PO (08:30)
[2020-08-05] MEDS: risperiDONE 1 MG TABLET PO ×3 (08:30→20:44)
--- NOTE | 2020-08-05 12:30 | MHC.CM.PN ---
Female 64 DX Covid +. DP resumption of Homecare services with [facility]. BLS to home r/t +covid. LOS R/T increase demand for supplemental Oxygen. CM will follow.
--- NOTE | 2020-08-05 14:47 | P.PNIM_ITS ---
Subjective Subjective Date of Service: 08/05/20 Interval History: the patient was seen and evaluated this morning Laying in bed, feels comfortable Denies any fever, chills Reported weakness and exertional shortness of breath No reported other overnight events. Systemic review: No fever, chills, reports generalized weakness No chest pain, palpitation Exertion and shortness of breath or coughing No abdominal pain, nausea or vomiting No urinary symptoms No any rash or wounds Physical Exam Vital Signs: Vital Signs: Last Vital Signs Temp 96.8 F 08/05/20 11:52 Pulse 62 08/05/20 11:52 Resp 20 08/05/20 11:52 BP 138/72 08/05/20 11:52 Pulse Ox 94 08/05/20 12:00 Body Mass Index 48.0 Constitutional : Alert, oriented, not in distress Neck : Normal inspection, Supple Cardiovascular : RRR, S1 S2, no lower extremity edema Respiratory : fair air entry bilaterally, decreased in the bases, fine scattered wheezes noted, Gastrointestinal: soft, lax, Normal bowel sounds, Non tender Skin : Warm/Dry, No rash Neurological : Alert & oriented x3, No focal deficit Objective Data Current Medications Generic Name Dose Route Start Last Admin Trade Name Freq PRN Reason Stop Dose Admin Acetaminophen 650 mg 07/30/20 19:25 08/03/20 03:27 Acetaminophen 325 Mg Tablet PO 650 mg Q6H PRN Administration Pain, Mild (Pain Scale 1-3) Albuterol Sulfate 2 puff 07/30/20 19:25 Albuterol Sulfate 90 Mcg 8 Gm Inhaler INHALE Q4H PRN dyspnea Atorvastatin Calcium 80 mg 07/30/20 21:00 08/04/20 20:26 Atorvastatin Calcium 80 Mg Tablet PO 80 mg BEDTIME ANTONETTE Administration Azithromycin 500 mg 07/31/20 14:00 08/04/20 14:07 Azithromycin 500 Mg Tablet PO 500 mg Q24H ANTONETTE Administration Benztropine Mesylate 1 mg 07/30/20 21:00 08/05/20 08:30 Benztropine Mesylate 1 Mg Tablet PO 1 mg BID ANTONETTE Administration Dexamethasone Sodium Phosphate 6 mg 07/30/20 19:25 08/05/20 08:27 Dexamethasone Sod Phosphate 4 Mg/Ml Vial IVPUSH 6 mg DAILY ANTONETTE Administration Dronedarone 400 mg 07/30/20 21:00 08/05/20 08:29 Dronedarone Hcl 400 Mg Tablet PO 400 mg BID ANTONETTE Administration Guaifenesin/Dextromethorphan 10 ml 08/01/20 14:29 08/04/20 20:26 Guaifenesin Dm 200/20/10 Ml 10 Ml Syrup PO 10 ml Q6H PRN Administration cough Levothyroxine Sodium 112 mcg 07/30/20 19:25 08/05/20 08:29 Levothyroxine Sodium 112 Mcg Tablet PO 112 mcg DAILY ANTONETTE Administration Loperamide HCl 2 mg 07/31/20 10:32 07/31/20 12:28 Loperamide Hcl 2 Mg Capsule PO 2 mg Q4H PRN Administration Diarrhea Loratadine 10 mg 07/31/20 09:00 08/05/20 08:29 Loratadine 10 Mg Tablet PO 10 mg DAILY ANTONETTE Administration Magnesium Oxide 400 mg 07/31/20 09:00 08/05/20 08:30 Magnesium Oxide 400 Mg Tablet PO 400 mg DAILY ANTONETTE Administration Meclizine HCl 25 mg 07/30/20 19:25 Meclizine Hcl 25 Mg Tablet PO TID PRN dizziness Metoprolol Tartrate 12.5 mg 07/30/20 21:00 08/05/20 08:29 Metoprolol Tartrate 25 Mg Tablet PO 12.5 mg BID ANTONETTE Administration Protocol Nystatin 1 appl 08/05/20 21:00 Nystatin Powder 15 Gm Bottle TOPICAL BID [facility] Protocol Ondansetron HCl 4 mg 07/30/20 19:25 Ondansetron Hcl 4 Mg/2 Ml Vial IVPUSH Q8H PRN Nausea and Vomiting Pharmacy Consult 1 each 07/30/20 11:34 Consult Rx Perform Med Rec MISCELLANE ONCE PRN Consult order Potassium Chloride 20 meq 07/31/20 09:00 08/05/20 08:28 Potassium Chloride Packet 20 Meq Packet PO 20 meq DAILY ANTONETTE Administration Risperidone 1 mg 07/30/20 19:25 08/01/20 00:05 Risperidone 0.5 Mg Tablet PO 1 mg BEDTIME PRN Administration anxiety Risperidone 1 mg 07/30/20 19:25 08/05/20 08:30 Risperidone 1 Mg Tablet PO 1 mg TID ANTONETTE Administration Rivaroxaban 20 mg 07/30/20 21:00 08/04/20 20:26 Rivaroxaban 20 Mg Tablet PO 20 mg BEDTIME ANTONETTE Administration Sertraline HCl 75 mg 07/31/20 09:00 08/05/20 08:28 Sertraline Hcl 50 Mg Tablet PO 75 mg DAILY ANTONETTE Administration Sertraline HCl 100 mg 07/31/20 09:00 08/05/20 08:29 Sertraline Hcl 100 Mg Tablet PO 100 mg DAILY ANTONETTE Administration Sodium Chloride 3 ml 07/30/20 19:25 08/05/20 08:28 0.9 % Sodium Chloride Flush 3 Ml Syringe IVFLUSH 3 ml QSHIFT ANTONETTE Administration Labs CBC & Chem 7: 08/03/20 06:12 08/03/20 06:12 Assessment and Plan (1) Atypical pneumonia: Status: Acute (2) COVID-19: Status: Acute (3) Acute respiratory failure with hypoxia: Status: Acute (4) Asthma: Status: Acute Assessment and Plan: A 64 years old lady with PMH of asthma, HLD, AFib post ppm, hypothyroid, depression among others who presented to the hospital complaining of 1 week of shortness of breath, worsening lethargy and cough. Acute hypoxic respiratory failure Secondary to COVID-19 infection Increased oxygen requirement today to 6 L Continue O2 supplement to keep sat in 90s and wean as tolerated Continue dexamethasone 6 mg daily for now Albuterol inhaler as needed pulmonology evaluation appreciated, only steroid treatment for now Monitor blood work and keep on telemetry for now Atypical pneumonia\pneumonitis CXR reporting infiltrate She could have a bacteria superinfection Finished course of azithromycin / Morbid obesity BMI of 48 Advised to lose weight as it is affecting her medical condition Atrial fibrillation post ppm Rate controlled Continue Multaq and metoprolol Continue Xarelto On heart monitor Schizophrenia continue risperidone DVT PPX Xarelto
[2020-08-05] MEDS: Azithromycin 500 MG TABLET PO (15:00)
[2020-08-05] MEDS: Rivaroxaban 20 MG TABLET PO (20:44)
[2020-08-05] MEDS: Atorvastatin Calcium 80 MG TABLET PO (20:44)
[2020-08-05] MEDS: Nystatin Powder 15 GM BOTTLE 1 APPL TOPICAL (20:46)
[2020-08-06] VITALS (9 sets, daily range): BP systolic 138–161; BP diastolic 55–85; PULSE 60; RESP 14–20; TEMP 36.2–36.9; O2SAT 90–93
[2020-08-06 07:05] LABS: Hematocrit 36.2 % (37-47); Hemoglobin 11.6 g/dl (12.0-16.0); Mean Corpuscular Hemoglobin 28.6 pg (27.0-33.0); Mean Corpuscular Volume 89.4 fL (80-98); Mean Platelet Volume 8.7 fL (9.4-12.3); Platelet Count 475 X10*3/uL (160-400); Red Blood Count 4.05 X10*6/uL (4.20-5.50); White Blood Count 11.1 X10*3/uL (4.8-10.8)
[2020-08-06 07:18] LABS: Anion Gap 13 (12-20); Blood Urea Nitrogen 16 mg/dL (9-16); Calcium 8.3 mg/dL (8.4-10.2); Carbon Dioxide 28 mmol/L (22-29); Chloride 104 mmol/L (96-108); Creatinine Clr Calc Pharmacy 104.8; Estimated Glomerular Filt Rate > 60; Glucose Random 77 mg/dL (60-115); Potassium 4.6 mmol/l (3.3-5.1); Sodium 140 mmol/L (135-145)
[2020-08-06] MEDS: 0.9 % Sodium Chloride Flush 3 ML SYRINGE IVFLUSH ×3 (09:24→20:33)
[2020-08-06] MEDS: Sertraline HCL 50 MG TABLET 75 MG PO (09:24)
[2020-08-06] MEDS: Metoprolol Tartrate 25 MG TABLET 12.5 MG PO ×2 (09:31→20:27)
[2020-08-06] MEDS: risperiDONE 1 MG TABLET PO ×3 (09:32→20:27)
[2020-08-06] MEDS: Dronedarone HCl 400 MG TABLET PO ×2 (09:32→20:29)
[2020-08-06] MEDS: Loratadine 10 MG TABLET PO (09:32)
[2020-08-06] MEDS: Sertraline HCL 100 MG TABLET PO (09:32)
[2020-08-06] MEDS: Benztropine Mesylate 1 MG TABLET PO ×2 (09:32→20:32)
[2020-08-06] MEDS: Potassium Chloride Packet 20 MEQ PACKET PO (09:32)
[2020-08-06] MEDS: Magnesium Oxide 400 MG TABLET PO (09:32)
[2020-08-06] MEDS: Levothyroxine Sodium 112 MCG TABLET PO (09:32)
[2020-08-06] MEDS: dexAMETHasone sod phosphate 4 MG/ML VIAL 6 MG IVPUSH (09:33)
[2020-08-06] MEDS: Nystatin Powder 15 GM BOTTLE 1 APPL TOPICAL ×2 (09:33→20:30)
--- NOTE | 2020-08-06 13:18 | HO.PM.IMPN ---
Subjective Subjective Date of Service: 08/06/20 Interval History: the patient was seen and evaluated this morning Laying in bed, feels comfortable Denies any fever, chills Reported weakness and exertional shortness of breath No reported other overnight events. Systemic review: No fever, chills, reports generalized weakness No chest pain, palpitation Exertion and shortness of breath or coughing No abdominal pain, nausea or vomiting No urinary symptoms No any rash or wounds Physical Exam Vital Signs: Vital Signs: Last Vital Signs Temp 97.2 F 08/06/20 11:56 Pulse 60 08/06/20 11:56 Resp 20 08/06/20 11:56 BP 141/55 H 08/06/20 11:56 Pulse Ox 90 L 08/06/20 11:56 Body Mass Index 48.0 Constitutional : Alert, oriented, not in distress Neck : Normal inspection, Supple Cardiovascular : RRR, S1 S2, no lower extremity edema Respiratory : Not in respiratory distress, bilateral chest wall moving, on 3 L of oxygen Gastrointestinal: soft, lax, Normal bowel sounds, Non tender Skin : Warm/Dry, No rash Neurological : Alert & oriented x3, No focal deficit Objective Data Current Medications Generic Name Dose Route Start Last Admin Trade Name Freq PRN Reason Stop Dose Admin Acetaminophen 650 mg 07/30/20 19:25 08/03/20 03:27 Acetaminophen 325 Mg Tablet PO 650 mg Q6H PRN Administration Pain, Mild (Pain Scale 1-3) Albuterol Sulfate 2 puff 07/30/20 19:25 Albuterol Sulfate 90 Mcg 8 Gm Inhaler INHALE Q4H PRN dyspnea Atorvastatin Calcium 80 mg 07/30/20 21:00 08/05/20 20:44 Atorvastatin Calcium 80 Mg Tablet PO 80 mg BEDTIME ANTONETTE Administration Benztropine Mesylate 1 mg 07/30/20 21:00 08/06/20 09:32 Benztropine Mesylate 1 Mg Tablet PO 1 mg BID ANTONETTE Administration Dexamethasone Sodium Phosphate 6 mg 07/30/20 19:25 08/06/20 09:33 Dexamethasone Sod Phosphate 4 Mg/Ml Vial IVPUSH 6 mg DAILY ANTONETTE Administration Dronedarone 400 mg 07/30/20 21:00 08/06/20 09:32 Dronedarone Hcl 400 Mg Tablet PO 400 mg BID ANTONETTE Administration Guaifenesin/Dextromethorphan 10 ml 08/01/20 14:29 08/04/20 20:26 Guaifenesin Dm 200/20/10 Ml 10 Ml Syrup PO 10 ml Q6H PRN Administration cough Levothyroxine Sodium 112 mcg 07/30/20 19:25 08/06/20 09:32 Levothyroxine Sodium 112 Mcg Tablet PO 112 mcg DAILY ANTONETTE Administration Loperamide HCl 2 mg 07/31/20 10:32 07/31/20 12:28 Loperamide Hcl 2 Mg Capsule PO 2 mg Q4H PRN Administration Diarrhea Loratadine 10 mg 07/31/20 09:00 08/06/20 09:32 Loratadine 10 Mg Tablet PO 10 mg DAILY ANTONETTE Administration Magnesium Oxide 400 mg 07/31/20 09:00 08/06/20 09:32 Magnesium Oxide 400 Mg Tablet PO 400 mg DAILY ANTONETTE Administration Meclizine HCl 25 mg 07/30/20 19:25 Meclizine Hcl 25 Mg Tablet PO TID PRN dizziness Metoprolol Tartrate 12.5 mg 07/30/20 21:00 08/06/20 09:31 Metoprolol Tartrate 25 Mg Tablet PO 12.5 mg BID ANTONETTE Administration Protocol Nystatin 1 appl 08/05/20 21:00 08/06/20 09:33 Nystatin Powder 15 Gm Bottle TOPICAL 1 appl BID ANTONETTE Administration Protocol Ondansetron HCl 4 mg 07/30/20 19:25 Ondansetron Hcl 4 Mg/2 Ml Vial IVPUSH Q8H PRN Nausea and Vomiting Pharmacy Consult 1 each 07/30/20 11:34 Consult Rx Perform Med Rec MISCELLANE ONCE PRN Consult order Potassium Chloride 20 meq 07/31/20 09:00 08/06/20 09:32 Potassium Chloride Packet 20 Meq Packet PO 20 meq DAILY ANTONETTE Administration Risperidone 1 mg 07/30/20 19:25 08/01/20 00:05 Risperidone 0.5 Mg Tablet PO 1 mg BEDTIME PRN Administration anxiety Risperidone 1 mg 07/30/20 19:25 08/06/20 09:32 Risperidone 1 Mg Tablet PO 1 mg TID ANTONETTE Administration Rivaroxaban 20 mg 07/30/20 21:00 08/05/20 20:44 Rivaroxaban 20 Mg Tablet PO 20 mg BEDTIME ANTONETTE Administration Sertraline HCl 75 mg 07/31/20 09:00 08/06/20 09:24 Sertraline Hcl 50 Mg Tablet PO 75 mg DAILY ANTONETTE Administration Sertraline HCl 100 mg 07/31/20 09:00 08/06/20 09:32 Sertraline Hcl 100 Mg Tablet PO 100 mg DAILY ANTONETTE Administration Sodium Chloride 3 ml 07/30/20 19:25 08/06/20 09:24 0.9 % Sodium Chloride Flush 3 Ml Syringe IVFLUSH 3 ml QSHIFT ANTONETTE Administration Labs CBC & Chem 7: 08/06/20 06:09 08/06/20 06:09 Assessment and Plan (1) Atypical pneumonia: Status: Acute (2) COVID-19: Status: Acute (3) Acute respiratory failure with hypoxia: Status: Acute (4) Asthma: Status: Acute Assessment and Plan: A 64 years old lady with PMH of asthma, HLD, AFib post ppm, hypothyroid, depression among others who presented to the hospital complaining of 1 week of shortness of breath, worsening lethargy and cough. Acute hypoxic respiratory failure Secondary to COVID-19 infection Improving slowly no crease oxygen requirement of 3 L Continue O2 supplement to keep sat in 90s and wean as tolerated Continue dexamethasone 6 mg daily 8 Albuterol inhaler as needed pulmonology evaluation appreciated, only steroid treatment for now Monitor blood work and keep on telemetry for now Atypical pneumonia\pneumonitis CXR reporting infiltrate She could have a bacteria superinfection Finished course of azithromycin 5/5 Morbid obesity BMI of 48 Advised to lose weight as it is affecting her medical condition Atrial fibrillation post ppm Rate controlled Continue Multaq and metoprolol Continue Xarelto On heart monitor Schizophrenia continue risperidone DVT PPX Xarelto
--- NOTE | 2020-08-06 19:11 | PC.NURSE ---
Pt alert and oriented, able to make needs know. No c/o SOB. Pt on 3L satting 92%. Pt washed up and sat in chair most of day. Able to repo self. Redness noted under breast/ groin.
[2020-08-06] MEDS: Rivaroxaban 20 MG TABLET PO (20:27)
[2020-08-06] MEDS: Atorvastatin Calcium 80 MG TABLET PO (20:27)
[2020-08-07] VITALS (8 sets, daily range): BP systolic 123–166; BP diastolic 58–86; PULSE 60–62; RESP 18–20; TEMP 36–37; O2SAT 90–93
[2020-08-07] MEDS: guaiFENesin DM 200/20/10 ML 10 ML SYRUP PO ×2 (00:03→21:07)
[2020-08-07] MEDS: Levothyroxine Sodium 112 MCG TABLET PO (10:03)
[2020-08-07] MEDS: Potassium Chloride Packet 20 MEQ PACKET PO (10:03)
[2020-08-07] MEDS: Benztropine Mesylate 1 MG TABLET PO ×2 (10:03→20:59)
[2020-08-07] MEDS: Magnesium Oxide 400 MG TABLET PO (10:03)
[2020-08-07] MEDS: Sertraline HCL 50 MG TABLET 75 MG PO (10:03)
[2020-08-07] MEDS: Sertraline HCL 100 MG TABLET PO (10:03)
[2020-08-07] MEDS: 0.9 % Sodium Chloride Flush 3 ML SYRINGE IVFLUSH ×3 (10:03→21:00)
[2020-08-07] MEDS: dexAMETHasone sod phosphate 4 MG/ML VIAL 6 MG IVPUSH (10:03)
[2020-08-07] MEDS: risperiDONE 1 MG TABLET PO ×3 (10:03→20:59)
[2020-08-07] MEDS: Loratadine 10 MG TABLET PO (10:03)
[2020-08-07] MEDS: Dronedarone HCl 400 MG TABLET PO ×2 (10:03→21:00)
[2020-08-07] MEDS: Metoprolol Tartrate 25 MG TABLET 12.5 MG PO ×2 (10:30→20:59)
[2020-08-07] MEDS: Nystatin Powder 15 GM BOTTLE 1 APPL TOPICAL ×2 (10:30→21:10)
--- NOTE | 2020-08-07 12:57 | MHC.CM.PN ---
Female 64 DX Covid+ DP resume [facility] home care services. [facility] transport.
--- NOTE | 2020-08-07 13:57 | MHC.CLN ---
PO INTAKE 100% DIET RX: REGULAR-APPROPRIATE FOLLOWING
--- NOTE | 2020-08-07 15:00 | P.PNIM_ITS ---
Subjective Subjective Date of Service: 08/07/20 Interval History: Patient was seen and evaluated this morning Reported weakness and exertional shortness of breath still requiring oxygen Systemic review: No fever, chills, reports generalized weakness No chest pain, palpitation Exertion and shortness of breath or coughing No abdominal pain, nausea or vomiting No urinary symptoms No any rash or wounds Review of Systems General no headache no dizziness, complaining of feeling feverish. CVS no chest pain, no palpitation. Respiratory dry cough, no sputum production, no respiratory distress. Gastrointestinal no nausea, no vomiting, no abdominal pain Physical Exam Vital Signs: Vital Signs: Last Vital Signs Temp 97.6 F 08/07/20 11:36 Pulse 60 08/07/20 11:36 Resp 18 08/07/20 11:36 BP 160/80 H 08/07/20 11:36 Pulse Ox 90 L 08/07/20 11:36 Body Mass Index 48.0 Const: General: cooperative and healthy appearing Orientation/consciousness: patient oriented x3 Limitations: no limitations HENMT: Head: Yes normal to inspection Ears: hearing grossly normal bilat erally General nose exam: Normal external nose present Face and sinus: Yes normal facial exam Eyes: General: appearance normal, both eyes and all related structures EOM: EOMs intact bilaterally and Nystagmus present Neck: Neck: Yes normal visual inspection and Yes no meningeal signs Resp: Effort & Inspection: normal respiratory effort and no stridor Auscultation: crackles (bibasilar) Cardio: Rate: regular rate Heart sounds: S1 normal heart sound present and S2 normal heart sound present GI: Inspection: Yes normal to inspection Palpation (GI): Soft to palpation, nontender, no guarding and not rigid Skin: Rashes: no rashes Wounds: no wounds Neuro: General: patient oriented x3, tone normal, moves all extremities, no meningeal signs, no focal motor deficits and CN's II-XI intact bilaterally Cranial nerves: Yes Nystagmus present horizontal fast component to the left Cognition (Neuro): normal cognition Motor exam (neuro): 5/5 motor strength present throughout Coordination: [id number] test normal Extrem: Other: No LE edema or calf tenderness General: Yes normal to inspection Objective Data Current Medications Generic Name Dose Route Start Last Admin Trade Name Freq PRN Reason Stop Dose Admin Acetaminophen 650 mg 07/30/20 19:25 08/03/20 03:27 Acetaminophen 325 Mg Tablet PO 650 mg Q6H PRN Administration Pain, Mild (Pain Scale 1-3) Albuterol Sulfate 2 puff 07/30/20 19:25 Albuterol Sulfate 90 Mcg 8 Gm Inhaler INHALE Q4H PRN dyspnea Atorvastatin Calcium 80 mg 07/30/20 21:00 08/06/20 20:27 Atorvastatin Calcium 80 Mg Tablet PO 80 mg BEDTIME ANTONETTE Administration Benztropine Mesylate 1 mg 07/30/20 21:00 08/07/20 10:03 Benztropine Mesylate 1 Mg Tablet PO 1 mg BID ANTONETTE Administration Dexamethasone Sodium Phosphate 6 mg 07/30/20 19:25 08/07/20 10:03 Dexamethasone Sod Phosphate 4 Mg/Ml Vial IVPUSH 6 mg DAILY ANTONETTE Administration Dronedarone 400 mg 07/30/20 21:00 08/07/20 10:03 Dronedarone Hcl 400 Mg Tablet PO 400 mg BID ANTONETTE Administration Guaifenesin/Dextromethorphan 10 ml 08/01/20 14:29 08/07/20 00:03 Guaifenesin Dm 200/20/10 Ml 10 Ml Syrup PO 10 ml Q6H PRN Administration cough Levothyroxine Sodium 112 mcg 07/30/20 19:25 08/07/20 10:03 Levothyroxine Sodium 112 Mcg Tablet PO 112 mcg DAILY ANTONETTE Administration Loperamide HCl 2 mg 07/31/20 10:32 07/31/20 12:28 Loperamide Hcl 2 Mg Capsule PO 2 mg Q4H PRN Administration Diarrhea Loratadine 10 mg 07/31/20 09:00 08/07/20 10:03 Loratadine 10 Mg Tablet PO 10 mg DAILY ANTONETTE Administration Magnesium Oxide 400 mg 07/31/20 09:00 08/07/20 10:03 Magnesium Oxide 400 Mg Tablet PO 400 mg DAILY ANTONETTE Administration Meclizine HCl 25 mg 07/30/20 19:25 Meclizine Hcl 25 Mg Tablet PO TID PRN dizziness Metoprolol Tartrate 12.5 mg 07/30/20 21:00 08/07/20 10:30 Metoprolol Tartrate 25 Mg Tablet PO 12.5 mg BID ANTONETTE Administration Protocol Nystatin 1 appl 08/05/20 21:00 08/07/20 10:30 Nystatin Powder 15 Gm Bottle TOPICAL 1 appl BID ANTONETTE Administration Protocol Ondansetron HCl 4 mg 07/30/20 19:25 Ondansetron Hcl 4 Mg/2 Ml Vial IVPUSH Q8H PRN Nausea and Vomiting Pharmacy Consult 1 each 07/30/20 11:34 Consult Rx Perform Med Rec MISCELLANE ONCE PRN Consult order Potassium Chloride 20 meq 07/31/20 09:00 08/07/20 10:03 Potassium Chloride Packet 20 Meq Packet PO 20 meq DAILY ANTONETTE Administration Risperidone 1 mg 07/30/20 19:25 08/01/20 00:05 Risperidone 0.5 Mg Tablet PO 1 mg BEDTIME PRN Administration anxiety Risperidone 1 mg 07/30/20 19:25 08/07/20 10:03 Risperidone 1 Mg Tablet PO 1 mg TID ANTONETTE Administration Rivaroxaban 20 mg 07/30/20 21:00 08/06/20 20:27 Rivaroxaban 20 Mg Tablet PO 20 mg BEDTIME ANTONETTE Administration Sertraline HCl 75 mg 07/31/20 09:00 08/07/20 10:03 Sertraline Hcl 50 Mg Tablet PO 75 mg DAILY ANTONETTE Administration Sertraline HCl 100 mg 07/31/20 09:00 08/07/20 10:03 Sertraline Hcl 100 Mg Tablet PO 100 mg DAILY ANTONETTE Administration Sodium Chloride 3 ml 07/30/20 19:25 08/07/20 10:03 0.9 % Sodium Chloride Flush 3 Ml Syringe IVFLUSH 3 ml QSHIFT ANTONETTE Administration Labs CBC & Chem 7: 08/06/20 06:09 08/06/20 06:09 Assessment and Plan (1) Atypical pneumonia: Status: Acute (2) COVID-19: Status: Acute (3) Acute respiratory failure with hypoxia: Status: Acute (4) Asthma: Status: Acute Assessment and Plan: A 64 years old lady with PMH of asthma, HLD, AFib post ppm, hypothyroid, depression among others who presented to the hospital complaining of 1 week of shortness of breath, worsening lethargy and cough. Acute hypoxic respiratory failure Secondary to COVID-19 infection Improving slowly no crease oxygen requirement of 3 L Continue O2 supplement to keep sat in 90s and wean as tolerated Continue dexamethasone 6 mg daily 8 Albuterol inhaler as needed pulmonology evaluation appreciated, only steroid treatment for now Monitor blood work and keep on telemetry for now Atypical pneumonia\pneumonitis CXR reporting infiltrate She could have a bacteria superinfection Finished course of azithromycin / Morbid obesity BMI of 48 Advised to lose weight as it is affecting her medical condition Atrial fibrillation post ppm Rate controlled Continue Multaq and metoprolol Continue Xarelto On heart monitor Schizophrenia continue risperidone DVT PPX Xarelto
--- NOTE | 2020-08-07 18:44 | PC.NURSE ---
Pt ambulates in room freely. Redness noted to lauren/under breast. Nystatin applied per emar. Pt able to make needs known. On 3L NC satting 90% and up.
[2020-08-07] MEDS: Rivaroxaban 20 MG TABLET PO (20:59)
[2020-08-07] MEDS: Atorvastatin Calcium 80 MG TABLET PO (20:59)
[2020-08-08 03:48] VITALS: BP 152/78; PULSE 60; RESP 18; TEMP 36.3; O2SAT 92
[2020-08-08 07:57] VITALS: BP 142/82; PULSE 62; RESP 18; TEMP 36.6; O2SAT 89
[2020-08-08] MEDS: 0.9 % Sodium Chloride Flush 3 ML SYRINGE IVFLUSH (08:46)
[2020-08-08] MEDS: Metoprolol Tartrate 25 MG TABLET 12.5 MG PO (08:48)
[2020-08-08] MEDS: Sertraline HCL 50 MG TABLET 75 MG PO (08:48)
[2020-08-08] MEDS: Dronedarone HCl 400 MG TABLET PO (08:48)
[2020-08-08] MEDS: Benztropine Mesylate 1 MG TABLET PO (08:49)
[2020-08-08] MEDS: Levothyroxine Sodium 112 MCG TABLET PO (08:49)
[2020-08-08] MEDS: Loratadine 10 MG TABLET PO (08:49)
[2020-08-08] MEDS: Sertraline HCL 100 MG TABLET PO (08:50)
[2020-08-08] MEDS: Magnesium Oxide 400 MG TABLET PO (08:50)
[2020-08-08] MEDS: dexAMETHasone sod phosphate 4 MG/ML VIAL 6 MG IVPUSH (08:50)
[2020-08-08] MEDS: Potassium Chloride Packet 20 MEQ PACKET PO (08:50)
[2020-08-08] MEDS: risperiDONE 1 MG TABLET PO ×2 (08:50→14:17)
[2020-08-08 11:18] VITALS: BP 139/66; PULSE 63; RESP 20; TEMP 36.4; O2SAT 89
[2020-08-08] MEDS: guaiFENesin DM 200/20/10 ML 10 ML SYRUP PO (11:23)
--- NOTE | 2020-08-08 12:15 | MHC.CM.PN ---
Patient has been medically cleared for dc, to return home today with VNA. Patient was active with [facility], who has been notified of today's dc. Second IMM addressed.
--- NOTE | 2020-08-08 12:52 | MHC.INPTTRAN ---
Has 02 at 3L via N/C > Neds to use portable 02 with activity.Otherwise o2 level drops to low 80 s. Has occ non prod cough. skin pink under breast and right groin. Having no pain. Jake diet.
--- NOTE | 2020-08-08 13:34 | P.DS_ITS ---
DS: Providers Provider Date of admission: 07/30/20 14:38 Primary care physician: Unknown Physician Consults: 07/30/20 19:25 Consult to Pulmonology Routine Consulting Provider: Antonino Guaman Reason for consultation: Covid 19 infx with hypoxemia DS: Diagnosis Discharge Diagnosis (1) Atypical pneumonia: Status: Acute (2) COVID-19: Status: Acute (3) Acute respiratory failure with hypoxia: Status: Acute (4) Asthma: Status: Acute DS: Medications Discharge Medications Home Medications: Home Medications Medication Instructions Recorded Confirmed Invega Sustenna 1 syringe IM Q4W 07/30/20 07/30/20 Multaq 1 tab PO BID 07/30/20 07/30/20 Xarelto 1 tab PO BEDTIME 07/30/20 07/30/20 albuterol sulfate [ProAir HFA] 2 puff PO Q4H PRN 07/30/20 07/30/20 atorvastatin 1 tab PO DAILY 07/30/20 07/30/20 benztropine 1 tab PO BID 07/30/20 07/30/20 levofloxacin 1 tab PO DAILY 07/30/20 07/30/20 levothyroxine 1 tab PO QAM 07/30/20 07/30/20 loratadine 1 tab PO DAILY 07/30/20 07/30/20 magnesium oxide 1 tab PO DAILY 07/30/20 07/30/20 melatonin 1 - 2 tab PO BEDTIME PRN 07/30/20 07/30/20 metoprolol tartrate 12.5 mg PO BID 07/30/20 07/30/20 potassium chloride 1 packet PO DAILY 07/30/20 07/30/20 risperidone 1 mg PO BEDTIME PRN 07/30/20 07/30/20 risperidone 1 tab PO TID 07/30/20 07/30/20 sertraline 1 tab PO DAILY 07/30/20 07/30/20 sertraline 1.5 tab PO DAILY 07/30/20 07/30/20 Previous Rx's Medication Instructions Recorded meclizine 25 mg PO TID PRN #10 tab 06/19/20 DS: Summary Hospital Course Hospital Course: HPI 64 years old lady with PMH of asthma, HLD, AFib post ppm, hypothyroid, depression among others who presented to the hospital complaining of 1 week of shortness of breath, worsening lethargy and cough. The patient reports she was doing well during the last period of time until last week when she started to have upper respiratory symptoms with shortness of breath, cough and mild congestion. Her symptoms were associated with mild nausea and episodes of diarrhea with no reported fever, chills, chest pain, palpitation or urinary symptoms. This morning she noted that she is more short of breath with minimal exertion and decided to come to the emergency for evaluation. She was noticed to have a drop in her oxygen level to 80s on room air. CT scan of chest was concerning for possible viral infection. She was tested positive for COVID-19. Hospital course 64-year-old female admitted with acute on chronic hypoxic respiratory failure secondary to COVID pneumonia patient was started on oxygen supplementation supportive management and IV dexamethasone, patient was seen by ID recommended continue dexamethasone, patient also have AFib with RVR was continued on metoprolol and Multaq, respiratory symptoms improved, AFib was controlled, cultures remain negative, patient was weaned down to 3 L of oxygen, patient was evaluated for home oxygen patient qualifies for 3 L of oxygen, patient was stable discharged home on oxygen, patient completed 10 days of dexamethasone Time Spent with Patient Time attestation: Total time spent providing and/or coordinating discharge services: Physical Exam Vital Signs: Vital Signs: Last Vital Signs Temp 97.6 F 08/08/20 11:18 Pulse 63 08/08/20 11:18 Resp 20 08/08/20 11:18 BP 139/66 08/08/20 11:18 Pulse Ox 89 L 08/08/20 11:18 Body Mass Index 48.0 Const: General: cooperative and healthy appearing Orientation/consciousness: patient oriented x3 Limitations: no limitations HENMT: Head: Yes normal to inspection Ears: hearing grossly normal bilaterally General nose exam: Normal external nose present Face and sinus: Yes normal facial exam Eyes: General: appearance normal, both eyes and all related structures EOM: EOMs intact bilaterally and Nystagmus present Neck: Neck: Yes normal visual inspection and Yes no meningeal signs Resp: Effort & Inspection: normal respiratory effort and no stridor Auscultation: crackles (bibasilar) Cardio: Rate: regular rate Heart sounds: S1 normal heart sound present and S2 normal heart sound present GI: Inspection: Yes normal to inspection Palpation (GI): Soft to palpation, nontender, no guarding and not rigid Skin: Rashes: no rashes Wounds: no wounds Neuro: General: patient oriented x3, tone normal, moves all extremities, no meningeal signs, no focal motor deficits and CN's II-XI intact bilaterally Cranial nerves: Yes Nystagmus present horizontal fast component to the left Cognition (Neuro): normal cognition Motor exam (neuro): 5/5 motor strength present throughout Coordination: [id number] test normal Extrem: Other: No LE edema or calf tenderness General: Yes normal to inspection DS: Data Data Completed and Pending Labs on day of discharge: 07/30/20 11:34 ECG 12 lead EKG Stat EKG Documentation DIRECTED XR chest 1V Stat Albuterol Sulfate [Ventolin] 4 puff INHALE ONCE ONE 07/30/20 11:44 methylPREDNISolone Sod Succ/PF [SOLU-MedroL] 125 mg IVPUSH ONCE ONE 07/30/20 12:16 CT chest wo con Stat B Type Natriuretic Peptide Stat Basic Metabolic Panel Stat C Reactive Protein Stat Complete Blood Count Auto Diff Stat Ferritin Stat Hold Lt Blue - Possible Coag Stat Lactate Dehydrogenase Stat Liver Panel Stat Magnesium Stat Procalcitonin Stat SARS-CoV2/FLU/RSV Stat Troponin-I High Sensitivity Stat 07/30/20 12:33 Albuterol Sulfate [Ventolin] 1 puff INHALE .STK-MED ONE 07/30/20 13:09 Azithromycin [Zithromax] 500 mg 0.9 % Sodium Chloride [Ns] 250 ml IV ONCE 07/30/20 13:34 Azithromycin [Zithromax] 500 mg IV .STK-MED ONE 07/30/20 14:31 Transfer Order Routine 07/30/20 17:33 risperiDONE [RisperDAL] 1 mg PO ONCE ONE 07/30/20 18:16 ED Diet NOW 07/30/20 19:25 IV insert/maintain Q4HR Intake and Output QSHIFTE Vital Signs Q4HR 07/31/20 05:42 Basic Metabolic Panel DAILY@0600 Complete Blood Count Auto Diff DAILY@0600 07/31/20 14:00 Azithromycin [Zithromax] 500 mg PO Q24H 08/01/20 05:46 Basic Metabolic Panel DAILY@0600 Complete Blood Count no Diff DAILY@0600 08/01/20 07:26 Glucose, Whole Blood Routine 08/03/20 06:12 Basic Metabolic Panel DAILY@0600 Complete Blood Count no Diff DAILY@0600 08/06/20 06:09 Basic Metabolic Panel DAILY@0600 Complete Blood Count no Diff DAILY@0600 Laboratory Last Values WBC 11.1 X10*3/uL (4.8-10.8) H 08/06/20 06:09 RBC 4.05 X10*6/uL (4.20-5.50) L 08/06/20 06:09 Hgb 11.6 g/dl (12.0-16.0) L 08/06/20 06:09 Hct 36.2 % (37-47) L 08/06/20 06:09 MCV 89.4 fL (80-98) 08/06/20 06:09 MCH 28.6 pg (27.0-33.0) 08/06/20 06:09 MCHC 32.0 g/dl (31.0-35.0) 08/06/20 06:09 RDW 14.0 % (11.0-16.0) 08/06/20 06:09 Plt Count 475 X10*3/uL (160-400) H D 08/06/20 06:09 MPV 8.7 fL (9.4-12.3) L 08/06/20 06:09 Immature Gran % (Auto) 0.5 % (0.0-0.4) H 07/31/20 05:42 Neut % (Auto) 72.2 % (45-73) 07/31/20 05:42 Lymph % (Auto) 18.9 % (20-40) L 07/31/20 05:42 [place] % (Auto) 8.4 % (2-11) 07/31/20 05:42 Eos % (Auto) 0.0 % (0-4) 07/31/20 05:42 Baso % (Auto) 0.0 % (0-2) 07/31/20 05:42 Lymph # (Auto) 0.7 X10*3/uL (1.2-4.9) L 07/31/20 05:42 [place] # (Auto) 0.3 X10*3/uL (0.1-1.2) 07/31/20 05:42 Eos # (Auto) 0.0 X10*3/uL (0.0-0.4) 07/31/20 05:42 Baso # (Auto) 0.0 X10*3/uL (0.0-0.2) 07/31/20 05:42 Abs Immat Gran (auto) 0.02 X10*3/uL (0.00-0.03) 07/31/20 05:42 Absolute Neuts (auto) 2.8 X10*3/uL (2.0-8.3) 07/31/20 05:42 Absolute Nucleated RBC 0.000 X10*3/uL (0.0-0.012) 08/06/20 06:09 Nucleated RBC % (auto) 0.0 /100WBC (0.0-0.2) 08/06/20 06:09 Hold Blue Top SEE NOTE 07/30/20 12:16 Sodium 140 mmol/L (135-145) 08/06/20 06:09 Potassium 4.6 mmol/l (3.3-5.1) 08/06/20 06:09 Chloride 104 mmol/L (96-108) 08/06/20 06:09 Carbon Dioxide 28 mmol/L (22-29) 08/06/20 06:09 Anion Gap 13 (-20) 08/06/20 06:09 BUN 16 mg/dL (9-16) 08/06/20 06:09 Creatinine 0.69 mg/dL (0.5-1.4) 08/06/20 06:09 Estim Creat Clear Calc 104.8 08/06/20 06:09 Estimated GFR > 60 08/06/20 06:09 POC Glucose 103 mg/dL (60-115) 08/01/20 07:26 Random Glucose 77 mg/dL (60-115) 08/06/20 06:09 Calcium 8.3 mg/dL (8.4-10.2) L 08/06/20 06:09 Magnesium 2.0 mg/dL (1.6-2.6) 07/30/20 12:16 Ferritin 176 ng/mL (10-250) 07/30/20 12:16 Total Bilirubin 0.6 mg/dL (0.0-1.0) 07/30/20 12:16 Direct Bilirubin 0.2 mg/dL (0.0-0.5) 07/30/20 12:16 AST 21 U/L (5-31) 07/30/20 12:16 ALT 14 U/L (0-31) 07/30/20 12:16 Alkaline Phosphatase 74 U/L (39-117) 07/30/20 12:16 Lactate Dehydrogenase 255 U/L (122-220) H 07/30/20 12:16 Troponin I High Sens < 3.5 ng/L (<3.5-17.0) 07/30/20 12:16 C-Reactive Protein 8.98 mg/dL (< or = 0.50) H 07/30/20 12:16 B-Natriuretic Peptide 25 pg/mL (<100) 07/30/20 12:16 Total Protein 6.9 g/dL (6.5-8.0) 07/30/20 12:16 Albumin 3.4 g/dL (3.5-5.0) L 07/30/20 12:16 Procalcitonin 0.07 ng/mL 07/30/20 12:16 Coronavirus (PCR) POSITIVE (Negative) A 07/30/20 12:16 Influenza Type A (PCR) NEGATIVE (Negative) 07/30/20 12:16 Influenza Type B (PCR) NEGATIVE (Negative) 07/30/20 12:16 RSV RNA Qual (PCR) NEGATIVE (Negative) 07/30/20 12:16 Discharge Plan Discharge Anticipated Discharge Date/Time: 08/08/20 11:53 Patient Disposition: Home Health Service Referrals: [facility] [Outside] Physician,Unknown [Primary Care Provider] - Discharge Medications: Continued atorvastatin 80 mg tablet 1 tab PO DAILY RF: 0 sertraline 100 mg tablet 1 tab PO DAILY RF: 0 potassium chloride 20 mEq packet 1 packet PO DAILY RF: 0 magnesium oxide 400 mg (241.3 mg magnesium) tablet 1 tab PO DAILY RF: 0 benztropine 1 mg tablet 1 tab PO BID RF: 0 levofloxacin 750 mg tablet 1 tab PO DAILY RF: 0 albuterol sulfate [ProAir HFA] 90 mcg/actuation HFA aerosol inhaler 2 puff PO Q4H PRN (Reason: dyspnea) RF: 0 sertraline 50 mg tablet 1.5 tab PO DAILY RF: 0 risperidone 1 mg tablet 1 tab PO TID RF: 0 loratadine 10 mg tablet 1 tab PO DAILY RF: 0 risperidone 0.5 mg tablet 1 mg PO BEDTIME PRN (Reason: anxiety) RF: 0 levothyroxine 112 mcg tablet 1 tab PO QAM RF: 0 metoprolol tartrate 25 mg tablet 12.5 mg PO BID RF: 0 melatonin 5 mg tablet 1 - 2 tab PO BEDTIME PRN (Reason: insomnia) RF: 0 Multaq 400 mg tablet 1 tab PO BID RF: 0 Invega Sustenna 234 mg/1.5 mL syringe 1 syringe IM Q4W RF: 0 Xarelto 20 mg tablet 1 tab PO BEDTIME RF: 0 meclizine 25 mg tablet 25 mg PO TID PRN (Reason: dizziness) Qty: 10 RF: 0 Discharge Orders: Discharge Order (Routine); Ordered 08/08/20 Ordered By: Tu Ibanez Diet: advance to usual diet Activity on Discharge: As tolerated Visit Report Forms: Patient Portal Discharge page Care Plan Goals: treat pneumonia Health Concerns: covid infection Plan of Treatment: completed dexamethasone
--- NOTE | 2020-08-08 13:35 | P.F2F_ITS ---
Service Date Service Date: 08/08/20 Encounter Date of encounter: 08/07/20 Reasons for Services Signs and symptoms assessed: COVID pneumonia Reason for intermediate: medication management Reason for physical therapy: home safety and mobility and therapeutic exercises Homebound: Leaving the home is medically contraindicated at this time without the asist of a device and/or another person due th the listed conditions above and below. Certification: Based on the above findings, I certify that this patient is confined to the home and needs intermittent intermediate care, physical therapy and/or speech therapy, or continues to need occupational therapy. The patient is under my care, and I have initiated the establishment of the plan of care. The patient will be followed by a physician who will periodically review the plan of care.
[2020-08-08] MEDS: Nystatin Powder 15 GM BOTTLE 1 APPL TOPICAL (13:45)
[2020-08-08 15:04] VITALS: PULSE 60; PULSE 68; PULSE 72; O2SAT 85; O2SAT 88; O2SAT 93
== END 2020-08-08 18:55 | disposition home health service (06) | DRG 177 ==
LOC: HO.ED 13:13 → HO.IMC 18:27
PROVIDERS: Physician Assistant; Admitting Provider Student in an Organized Health Care Education/Training Program; Emergency Provider Internal Medicine; Visit Provider Internal Medicine
DX: U07.1 COVID-19 (principal); J12.89 Other viral pneumonia; J96.01 Acute respiratory failure with hypoxia; Z68.42 Body mass index [BMI] 45.0-49.9, adult; F20.9 Schizophrenia, unspecified; E66.01 Morbid (severe) obesity due to excess calories; E03.9 Hypothyroidism, unspecified; Z95.0 Presence of cardiac pacemaker; Z79.01 Long term (current) use of anticoagulants; Z79.890 Hormone replacement therapy; Z79.899 Other long term (current) drug therapy
CPT/HCPCS: 0241U; 36415; 71045; 71250; 80048; 80076; 82728; 82947; 83615; 83735; 83880; 84145; 84484; 85025; 85027; 86140; 93005; 96365; 96366; 96375; 99285; J0456; J1100; J2930

== ENCOUNTER 2020-10-25 09:58 | Inpatient (IN) | payer MEDICARE, MEDICAID, SELFPAY ==
[2020-10-25] VITALS (17 sets, daily range): BP systolic 93–170; BP diastolic 66–104; PULSE 70–145; RESP 16–20; TEMP 36.6–37.6; O2SAT 92–99; BMI 50.5
--- NOTE | 2020-10-25 | ECG_ITS ---
Test Reason : TACHYCARDIA Blood Pressure : / mmHG Vent. Rate : 139 BPM Atrial Rate : 278 BPM P-R Int : 000 ms QRS Dur : 162 ms QT Int : 346 ms P-R-T Axes : 246 -32 -88 degrees QTc Int : 526 ms Atrial flutter with 2:1 A-V conduction Left axis deviation Abnormal ECG When compared with ECG of 30-JUL-2020 11:53, Significant changes have occurred Referred By: Generic ED Physician Electronically Signed By:LISSETTE EDMONDS
--- NOTE | ~2020-10-25 | XR_ITS ---
EXAMINATION: XR CHEST CLINICAL INFORMATION: Tachycardia. COMPARISON: Chest wall a 20 TECHNIQUE: Frontal view of the chest was obtained. FINDINGS: The lungs are well-expanded with patchy haziness in both lung bases especially left lower lobe retrocardiac area question atelectasis. Heart size and pulmonary vascularity is normal. There are dual pacer electrodes in the right atrium and right ventricle. No gross bony abnormality seen. XR/XR chest 1V IMPRESSION: Likely bibasilar atelectasis. No acute consolidation seen.
--- NOTE | 2020-10-25 10:23 | ECG_ITS ---
Test Reason : tachyacrdia Blood Pressure : / mmHG Vent. Rate : 094 BPM Atrial Rate : 285 BPM P-R Int : 000 ms QRS Dur : 078 ms QT Int : 350 ms P-R-T Axes : 000 -33 096 degrees QTc Int : 437 ms Atrial flutter with variable A-V block Left axis deviation Nonspecific T wave abnormality Abnormal ECG When compared with ECG of 25-OCT-2020 10:06, QRS duration has decreased Referred By: Eve Palma Electronically Signed By:LISSETTE EDMONDS
[2020-10-25 10:46] LABS: MANUAL DIFF FLAG NO
[2020-10-25] MEDS: 0.9 % Sodium Chloride 1,000 ML 999 ML IVCONT (10:47)
[2020-10-25 10:48] LABS: Basophils Percent Auto 0.2 % (0-2); Eosinophils Percent Auto 0.5 % (0-4); Hematocrit 41.7 % (37-47); Hemoglobin 13.2 g/dl (12.0-16.0); Imm Gran Abs Auto 0.02 X10*3/uL (0.00-0.03); Imm Gran Pct Auto 0.2 % (0.0-0.4); Lymphocytes Absolute Auto 1.8 X10*3/uL (1.2-4.9); Lymphocytes Percent Auto 22.7 % (20-40); Mean Corpuscular HGB Conc 31.7 g/dl (31.0-35.0); Mean Corpuscular Hemoglobin 29.2 pg (27.0-33.0); Mean Corpuscular Volume 92.3 fL (80-98); Mean Platelet Volume 9.1 fL (9.4-12.3); Monocytes Absolute Auto 0.7 X10*3/uL (0.1-1.2); Monocytes Percent Auto 8.5 % (2-11); Neutrophils Absolute Auto 5.5 X10*3/uL (2.0-8.3); Neutrophils Percent Auto 67.9 % (45-73); Platelet Count 297 X10*3/uL (160-400); Red Blood Count 4.52 X10*6/uL (4.20-5.50); Red Cell Distribution Width 14.8 % (11.0-16.0)
[2020-10-25 10:53] LABS: INTERNATIONAL NORM RATIO 1.2 (0.9-1.1); Prothrombin Time 13.9 SEC (10.8-13.0)
[2020-10-25 10:55] LABS: Partial Thromboplastin Time 36.8 SEC (24.1-38.0)
[2020-10-25] MEDS: Metoprolol Tartrate 5 MG/5 ML VIAL IVPUSH ×2 (11:05→23:10)
[2020-10-25 11:22] LABS: Alanine Aminotransferase 31 U/L (0-31); Albumin Level 4.1 g/dL (3.5-5.0); Alkaline Phosphatase 102 U/L (39-117); Anion Gap 22 (12-20); Aspartate Amino Transferase 47 U/L (5-31); Bilirubin Direct 0.2 mg/dL (0.0-0.5); Bilirubin Total 0.6 mg/dL (0.0-1.0); Blood Urea Nitrogen 32 mg/dL (9-16); Calcium 9.7 mg/dL (8.4-10.2); Carbon Dioxide 20 mmol/L (22-29); Chloride 107 mmol/L (96-108); Creatinine Clr Calc Pharmacy 80.8; Estimated Glomerular Filt Rate > 60; Glucose Random 88 mg/dL (60-115); Potassium 4.9 mmol/L (3.3-5.1); Sodium 144 mmol/L (135-145); Total Protein 7.9 g/dL (6.5-8.0)
[2020-10-25 11:24] LABS: B Type Natriuretic Peptide 311 pg/mL (<100); Troponin-I High Sensitivity 22.5 ng/L (<3.5-17.0)
--- NOTE | 2020-10-25 11:36 | PC.NURSE ---
patient refusing blood pressure, provider notified, tech is attempting to get blood pressure.
--- NOTE | 2020-10-25 11:44 | ED_ITS ---
HPI - General Adult General Chief complaint: General Medical Stated complaint: tachy 130's Time Seen by Provider: 10/25/20 10:10 Source: patient and EMS Mode of arrival: EMS History of Present Illness HPI narrative: 65-year-old female with a past medical history of asthma, hypertension, hypothyroid, pacemaker, hypoxic respiratory failure due to COVID pneumonia, schizophrenia, AFib with RVR, BIBA found to be noncompliant with her home medications since Wednesday by visiting nurse and tachycardic in the 130s by EMS. Patient refused her Invega injection, last taken on 08/19/2020. Patient reports she is feeling fearful, poor historian due to her schizophrenia, slow to respond/not answering questions. Related Data Home Medications Medication Instructions Recorded Confirmed Invega Sustenna 234 mg IM Q4W 07/30/20 10/25/20 Multaq 400 mg PO BID 07/30/20 10/25/20 Xarelto 20 mg PO BEDTIME 07/30/20 10/25/20 albuterol sulfate [ProAir HFA] 2 puff PO Q4H PRN 07/30/20 10/25/20 atorvastatin 80 mg PO BEDTIME 07/30/20 10/25/20 benztropine 1 mg PO BID 07/30/20 10/25/20 levothyroxine 112 mcg PO DAILY 07/30/20 10/25/20 loratadine 10 mg PO DAILY 07/30/20 10/25/20 magnesium oxide 400 mg PO DAILY 07/30/20 10/25/20 melatonin 1 - 2 tab PO BEDTIME PRN 07/30/20 10/25/20 potassium chloride 20 meq PO DAILY 07/30/20 10/25/20 risperidone 1 mg PO BEDTIME PRN 07/30/20 10/25/20 risperidone 1 tab PO BID 07/30/20 10/25/20 sertraline 100 mg PO DAILY 07/30/20 10/25/20 fluticasone propionate [Flonase] 1 spray INTRANASAL BID 10/25/20 10/25/20 sertraline 50 mg PO DAILY 10/25/20 10/25/20 tizanidine 4 mg PO BEDTIME PRN 10/25/20 10/25/20 Allergies Allergy/AdvReac Type Severity Reaction Status Date / Time No Known Allergies Allergy Verified 07/30/20 11:27 Review of Systems Review of Systems: History limited due to patient's schizophrenia/acute mental status/refusing to answer questions [facility] Past Medical History Attestation statement: The following information was validated with the patient. Medical History (Updated 10/25/20 @ 13:10 by QUINTIN Paulino) Asthma HTN (hypertension) Hypothyroid Pacemaker Pneumonia due to COVID-19 virus Schizophrenia Surgical History Hx of kidney removal Hx of removal of ovary Social History Social History Household Members: None Housing: Apartment Smoking Status: Never smoker Use of substances other than those prescribed or required for medical reasons: No Advance Directives: No Advance Directives Information Provided: No service: No Current occupational status: disabled Physical Exam Vital Signs: Vital Signs: Last Vital Signs Temp 97.8 F 10/25/20 11:39 Pulse 70 10/25/20 12:16 Resp 17 10/25/20 12:16 BP 133/77 10/25/20 12:16 Pulse Ox 99 10/25/20 12:16 Body Mass Index 50.5 Const: General: comfortable Limitations: other limitations HENMT: Head: Yes normal to inspection Ears: hearing grossly normal bilaterally General nose exam: Normal external nose present Face and sinus: Yes normal facial exam Eyes: General: appearance normal, both eyes and all related structures EOM: EOMs intact bilaterally Neck: Neck: Yes normal visual inspection Resp: Effort & Inspection: normal respiratory effort Auscultation: clear to auscultation bilaterally, no rhonchi and no wheezes Cardio: Rate: regular rate Heart sounds: S1 normal heart sound present and S2 normal heart sound present GI: Inspection: Yes normal to inspection Palpation (GI): Soft to palpation, nontender, no guarding and not rigid Skin: Rashes: no rashes Wounds: no wounds Neuro: General: tone normal Extrem: General: Yes normal to inspection and Yes no pedal edema Psych: Mental Status: other Speech and movement: Slowed speech present (Psy ch) and Slowed movement present (Neuro) Affect: Labile affect present, Ho stile affect present and Blunted affect present Attitude: Refuses to answer (attititude/behavior) Thought content: Depressive thoughts present Course Course Course Narrative: -IV metoprolol without affection heart rate -1300-- patient with transient effect after IV Cardizem, however no back in A flutter with heart rate 135 >> will initiate Cardizem drip -troponin is elevated to 22.5 > likely rate dependent will obtain 3 hour repeat. BNP 311 XR chest 1V IMPRESSION: Likely bibasilar atelectasis. No acute consolidation seen -plan to admit for further management Medical Decision Making MDM Narrative Medical decision making narrative: 65-year-old female with a past medical history of asthma, hypertension, hypothyroid, pacemaker, hypoxic respiratory failure due to COVID pneumonia, schizophrenia, AFib with RVR, BIBA found to be noncompliant with her home medications since Wednesday by visiting nurse and tachycardic in the s by EMS. On exam hypertensive and tachycardic in A. flutter with 2:1, likely from medication noncompliance. Rule out metabolic abnormalities. Lower concern for infectious etiology. Low concern for severe sepsis Vital sign abnormalities from arrhythmia rather than sepsis Plan: EKG, labs, CXR, Rate control, BHN, anticipated admission, reassess Lab Data Result diagrams: 10/25/20 10:42 10/25/20 10:42 Labs: Lab Results 10/25/20 10/25/20 10/25/20 Range/Units 10:42 10:42 10:42 WBC 8.0 (4.8-10.8) X10*3/uL RBC 4.52 (4.20-5.50) X10*6/uL Hgb 13.2 (12.0-16.0) g/dl Hct 41.7 (37-47) % MCV 92.3 (80-98) fL MCH 29.2 (27.0-33.0) pg MCHC 31.7 (31.0-35.0) g/dl RDW 14.8 (11.0-16.0) % Plt Count 297 D (160-400) X10*3/uL MPV 9.1 L (9.4-12.3) fL Immature Gran % (Auto) 0.2 (0.0-0.4) % Neut % (Auto) 67.9 (45-73) % Lymph % (Auto) 22.7 (20-40) % [place] % (Auto) 8.5 (2-11) % Eos % (Auto) 0.5 (0-4) % Baso % (Auto) 0.2 (0-2) % Lymph # (Auto) 1.8 (1.2-4.9) X10*3/uL [place] # (Auto) 0.7 (0.1-1.2) X10*3/uL Eos # (Auto) 0.0 (0.0-0.4) X10*3/uL Baso # (Auto) 0.0 (0.0-0.2) X10*3/uL Abs Immat Gran (auto) 0.02 (0.00-0.03) X10*3/uL Absolute Neuts (auto) 5.5 (2.0-8.3) X10*3/uL Absolute Nucleated RBC 0.000 (0.0-0.012) X10*3/uL Nucleated RBC % (auto) 0.0 (0.0-0.2) /100WBC PT 13.9 H (10.8-13.0) SEC INR 1.2 H (0.9-1.1) APTT 36.8 (24.1-38.0) SEC Sodium 144 (135-145) mmol/L Potassium 4.9 (3.3-5.1) mmol/L Chloride 107 (96-108) mmol/L Carbon Dioxide 20 L (22-29) mmol/L Anion Gap 22 H (12-20) BUN 32 H D (9-16) mg/dL Creatinine 0.91 (0.5-1.4) mg/dL Estim Creat Clear Calc 80.8 Estimated GFR > 60 Random Glucose 88 (60-115) mg/dL Calcium 9.7 D (8.4-10.2) mg/dL Magnesium 2.0 (1.6-2.6) mg/dL Total Bilirubin 0.6 (0.0-1.0) mg/dL Direct Bilirubin 0.2 (0.0-0.5) mg/dL AST 47 H D (5-31) U/L ALT 31 (0-31) U/L Alkaline Phosphatase 102 D (39-117) U/L Troponin I High Sens (<3.5-17.0) ng/L B-Natriuretic Peptide (<100) pg/mL Total Protein 7.9 (6.5-8.0) g/dL Albumin 4.1 D (3.5-5.0) g/dL COVID-19 (VIC) (Negative) COVID-19 Clin Com 10/25/20 10/25/20 Range/Units 10:42 11:59 WBC (4.8-10.8) X10*3/uL RBC (4.20-5.50) X10*6/uL Hgb (12.0-16.0) g/dl Hct (37-47) % MCV (80-98) fL MCH (27.0-33.0) pg MCHC (31.0-35.0) g/dl RDW (11.0-16.0) % Plt Count (160-400) X10*3/uL MPV (9.4-12.3) fL Immature Gran % (Auto) (0.0-0.4) % Neut % (Auto) (45-73) % Lymph % (Auto) (20-40) % [place] % (Auto) (2-11) % Eos % (Auto) (0-4) % Baso % (Auto) (0-2) % Lymph # (Auto) (1.2-4.9) X10*3/uL [place] # (Auto) (0.1-1.2) X10*3/uL Eos # (Auto) (0.0-0.4) X10*3/uL Baso # (Auto) (0.0-0.2) X10*3/uL Abs Immat Gran (auto) (0.00-0.03) X10*3/uL Absolute Neuts (auto) (2.0-8.3) X10*3/uL Absolute Nucleated RBC (0.0-0.012) X10*3/uL Nucleated RBC % (auto) (0.0-0.2) /100WBC PT (10.8-13.0) SEC INR (0.9-1.1) APTT (24.1-38.0) SEC Sodium (135-145) mmol/L Potassium (3.3-5.1) mmol/L Chloride (96-108) mmol/L Carbon Dioxide (22-29) mmol/L Anion Gap (12-20) BUN (9-16) mg/dL Creatinine (0.5-1.4) mg/dL Estim Creat Clear Calc Estimated GFR Random Glucose (60-115) mg/dL Calcium (8.4-10.2) mg/dL Magnesium (1.6-2.6) mg/dL Total Bilirubin (0.0-1.0) mg/dL Direct Bilirubin (0.0-0.5) mg/dL AST (5-31) U/L ALT (0-31) U/L Alkaline Phosphatase (39-117) U/L Troponin I High Sens 22.5 H D (<3.5-17.0) ng/L B-Natriuretic Peptide 311 H (<100) pg/mL Total Protein (6.5-8.0) g/dL Albumin (3.5-5.0) g/dL COVID-19 (VIC) Negative (Negative) COVID-19 Clin Com See Note ECG Data Attestation: I personally reviewed and interpreted this ECG as follows: Prior ECG tracings: available for review Interpretation: EKG showing a flutter with 2-1 AV conduction. No STEMI Discharge Plan Discharge Clinical Impression: Atrial fib/flutter, transient, Schizophrenia Patient Disposition: Admitted As Inpatient
[2020-10-25] MEDS: dilTIAZem HCL 50 MG/10 ML VIAL 20 MG IVPUSH (11:54)
--- NOTE | 2020-10-25 12:10 | PC.NURSE ---
patient medicated per order, covid swab performed, will attempt a bp again with assist of tech who patient allowed to do bp with last time
[2020-10-25 12:30] LABS: COVID-19 Test Negative (Negative); IDNOW Serial# 9DD0AD1C
--- NOTE | 2020-10-25 13:18 | PC.NURSE ---
ekg performed, patient aflutter,
[2020-10-25] MEDS: LORazepam 2 MG/ML VIAL 1 MG IVPUSH (13:30)
[2020-10-25] MEDS: dilTIAZem HCL 125 MG in 0.9 % Sodium Chloride 100 ML 10 MG IVCONT (13:30)
--- NOTE | 2020-10-25 13:31 | PC.NURSE ---
patient a&o, currently patient allowing care at times, patient hesitant and resistant but often times when given a few minutes to think about it and re-approached patient is allowing care, rahul armenta per order, cardiac nurse specialist a flutter 130s, vitals are stable, pt requesting something to eat will ask provider.
--- NOTE | 2020-10-25 13:48 | PC.NURSE ---
patient currently not allowing bp, will attempt again in a few minutes, cardizem titrated to 15, desk monitor a-flutter 140, pt currently eating sandwich- she is calm at this time, will reapproach to do bp and lab draw- provider is aware, will continue to m onitor.
--- NOTE | 2020-10-25 14:25 | P.HPHOSP_ITS ---
History of Present Illness Date of Service: 10/25/20 <QUINTIN Lomas - Last Filed: 10/25/20 14:37> Chief Complaint: Not taking medication <QUINTIN Lomas - Last Filed: 10/25/20 14:37> This is a 65-year-old female with history of atrial fibrillation. She was sent to the emergency department by [facility] due to medication noncompliance. [facility] saw her today and noticed that she had not been taking her medication in some time. They called 911 and EMS found her to be tachycardic. In the emergency department she was noted to be in atrial flutter with heart rate in the 140s. She was given a dose of IV Lopressor, IV Cardizem and then started on Cardizem drip. Lab work was unremarkable with exception of a troponin of 22.5, repeat pending. She reports palpitations. She denies shortness of breath. She does not know why she has not been taking her medication. <QUINTIN Lomas - Last Filed: 10/25/20 14:37> Review of Systems Review of Systems: Yes all other systems are reviewed and are negative <QUINTIN Lomas - Last Filed: 10/25/20 14:37> Constitutional: Constitutional: Denies chills and Denies fever(s) <QUINTIN oLmas Last Filed: 10/25/20 14:37> Cardiovascular: Cardiovascular: Reports palpitations and Denies dyspnea <QUINTIN Lomas Last Filed: 10/25/20 14:37> Respiratory: Respiratory: Denies cough and Denies dyspnea <QUINTIN Lomas Last Filed: 10/25/20 14:37> Gastrointestinal: Gastrointestinal: Denies abdominal pain <QUINTIN Lomas Last Filed: 10/25/20 14:37> Endocrine: Endocrine: Reports palpitations <QUINTIN Lomas Last Filed: 10/25/20 14:37> [facility] Medical History: Medical History (Updated 10/25/20 @ 14:32 by QUINTIN Lomas) Afib Asthma HTN (hypertension) Hypothyroid Pacemaker Pneumonia due to COVID-19 virus Schizophrenia <QUINTIN Lomas Last Filed: 10/25/20 14:37> Functional capacity: uses cane/walker <QUINTIN Lomas - Last Filed: 10/25/20 14:37> Family History: Family History Other Heart disease <QUINTIN Lomas - Last Filed: 10/25/20 14:37> Family history: reviewed and not pertinent <QUINTIN Lomas - Last Filed: 10/25/20 14:37> Surgical History: Surgical History Hx of kidney removal Hx of removal of ovary <QUINTIN Lomas - Last Filed: 10/25/20 14:37> Social History: Social History Household Members: None Housing: Apartment Smoking Status: Never smoker Use of substances other than those prescribed or required for medical reasons: No Advance Directives: No Advance Directives Information Provided: No service: No Current occupational status: disabled <QUINTIN Lomas - Last Filed: 10/25/20 14:37> Meds Allergies/Adverse reactions: Allergies Allergy/AdvReac Type Severity Reaction Status Date / Time No Known Allergies Allergy Verified 07/30/20 11:27 <QUINTIN Lomas - Last Filed: 10/25/20 14:37> Active Medications: Current Medications Generic Name Dose Route Start Last Admin Trade Name Freq PRN Reason Stop Dose Admin Diltiazem HCl 125 mg/ Sodium 125 mls @ 0 mls/hr 10/25/20 13:00 10/25/20 13:47 Chloride IVCONT 15 mg/hr .Q0M ANTONETTE 15 mls/hr Titration Protocol Per Protocol Metoprolol Tartrate 25 mg 10/25/20 14:30 Metoprolol Tartrate 25 Mg Tablet PO Q6H ANTONETTE Protocol Pharmacy Consult 1 each 10/25/20 10:22 Consult Rx Perform Med Rec MISCELLANE ONCE PRN Consult order <QUINTIN Lomas - Last Filed: 10/25/20 14:37> Home medications: Home Medications Medication Instructions Recorded Confirmed Last Taken Type Invega Sustenna 234 mg IM Q4W 07/30/20 10/25/20 08/19/20 History Multaq 400 mg PO BID 07/30/20 10/25/20 Unknown History Xarelto 20 mg PO BEDTIME 07/30/20 10/25/20 Unknown History albuterol sulfate [ProAir HFA] 2 puff PO Q4H PRN 07/30/20 10/25/20 Unknown History atorvastatin 80 mg PO BEDTIME 07/30/20 10/25/20 Unknown History benztropine 1 mg PO BID 07/30/20 10/25/20 Unknown History levothyroxine 112 mcg PO DAILY 07/30/20 10/25/20 Unknown History loratadine 10 mg PO DAILY 07/30/20 10/25/20 Unknown History magnesium oxide 400 mg PO DAILY 07/30/20 10/25/20 Unknown History melatonin 1 - 2 tab PO BEDTIME PRN 07/30/20 10/25/20 Unknown History potassium chloride 20 meq PO DAILY 07/30/20 10/25/20 Unknown History risperidone 1 mg PO BEDTIME PRN 07/30/20 10/25/20 Unknown History risperidone 1 tab PO BID 07/30/20 10/25/20 Unknown History sertraline 100 mg PO DAILY 07/30/20 10/25/20 Unknown History fluticasone propionate [Flonase] 1 spray INTRANASAL BID 10/25/20 10/25/20 Unknown History sertraline 50 mg PO DAILY 10/25/20 10/25/20 Unknown History tizanidine 4 mg PO BEDTIME PRN 10/25/20 10/25/20 Unknown History <QUINTIN Lomas - Last Filed: 10/25/20 14:37> Physical Exam Vital Signs and Narrative: Vital Signs: Last Vital Signs Temp 97.8 F 10/25/20 11:39 Pulse 140 H 10/25/20 13:47 Resp 18 10/25/20 13:47 BP 133/77 10/25/20 12:16 Pulse Ox 99 10/25/20 12:16 Body Mass Index 50.5 <QUINTIN Lomas - Last Filed: 10/25/20 14:37> Const: Other: Slow to respond but oriented and answering questions appropriately <QUINTIN Lomas - Last Filed: 10/25/20 14:37> General: no acute distress, alert and awake <QUINTIN Lomas - Last Filed: 10/25/20 14:37> Nutritional Appearance: obese <QUINTIN Lomas - Last Filed: 10/25/20 14:37> Orientation/consciousness: patient oriented x3 <QUINTIN Lomas - Last Filed: 10/25/20 14:37> HENMT: Head: Yes normocephalic and Yes atraumatic <QUINTIN Lomas - Last Filed: 10/25/20 14:37> Eyes: Sclerae: sclerae normal <QUINTIN Lomas - Last Filed: 10/25/20 14:37> Chest: Chest palpation & inspection: normal inspection of the chest <QUINTIN Lomas - Last Filed: 10/25/20 14:37> Resp: Effort & Inspection: normal respiratory effort and no respiratory distress <QUINTIN Lomas - Last Filed: 10/25/20 14:37> Cardio: Rate: tachycardic <QUINTIN Lomas - Last Filed: 10/25/20 14:37> Rhythm: regular rhythm <QUINTIN Lomas - Last Filed: 10/25/20 14:37> GI: Palpation (GI): Soft to palpation and nontender <QUNITIN Lomas - Last Filed: 10/25/20 14:37> Skin: General skin exam: no rashes or lesions noted <QUINTIN Lomas - Last Filed: 10/25/20 14:37> Neuro: General: patient oriented x3 <QUINTIN Lomas - Last Filed: 10/25/20 14:37> Cranial nerves: Yes CN's II-XII intact bilaterally and Yes Bilaterally intact EOM present <QUINTIN Lomas - Last Filed: 10/25/20 14:37> Extrem: General: Yes normal to inspection <QUINTIN Lomas - Last Filed: 10/25/20 14:37> Results Labs CBC and Chem 7: : 10/25/20 10:42 10/25/20 10:42 <QUINTIN Lomas - Last Filed: 10/25/20 14:37> Labs: Laboratory Results - last 24 hr 10/25/20 10/25/20 10/25/20 10:42 10:42 10:42 MCV 92.3 MCH 29.2 MCHC 31.7 RDW 14.8 Plt Count 297 D MPV 9.1 L Immature Gran % (Auto) 0.2 Neut % (Auto) 67.9 Lymph % (Auto) 22.7 [place] % (Auto) 8.5 Eos % (Auto) 0.5 Baso % (Auto) 0.2 Lymph # (Auto) 1.8 [place] # (Auto) 0.7 Eos # (Auto) 0.0 Baso # (Auto) 0.0 Abs Immat Gran (auto) 0.02 Absolute Neuts (auto) 5.5 Absolute Nucleated RBC 0.000 Nucleated RBC % (auto) 0.0 PT 13.9 H INR 1.2 H APTT 36.8 Anion Gap 22 H Estim Creat Clear Calc 80.8 Estimated GFR > 60 Random Glucose 88 Calcium 9.7 D Magnesium 2.0 Total Bilirubin 0.6 Direct Bilirubin 0.2 AST 47 H D ALT 31 Alkaline Phosphatase 102 D Troponin I High Sens B-Natriuretic Peptide Total Protein 7.9 Albumin 4.1 D COVID-19 (VIC) COVID-19 Clin Com 10/25/20 10/25/20 10:42 11:59 MCV MCH MCHC RDW Plt Count MPV Immature Gran % (Auto) Neut % (Auto) Lymph % (Auto) [place] % (Auto) Eos % (Auto) Baso % (Auto) Lymph # (Auto) [place] # (Auto) Eos # (Auto) Baso # (Auto) Abs Immat Gran (auto) Absolute Neuts (auto) Absolute Nucleated RBC Nucleated RBC % (auto) PT INR APTT Anion Gap Estim Creat Clear Calc Estimated GFR Random Glucose Calcium Magnesium Total Bilirubin Direct Bilirubin AST ALT Alkaline Phosphatase Troponin I High Sens 22.5 H D B-Natriuretic Peptide 311 H Total Protein Albumin COVID-19 (VIC) Negative COVID-19 Clin Com See Note <QUINTIN Lomas - Last Filed: 10/25/20 14:37> Imaging Radiologist's Impressions: Impressions Chest X-Ray 10/25/20 10:50 IMPRESSION: Likely bibasilar atelectasis. No acute consolidation seen. <QUINTIN Lomas - Last Filed: 10/25/20 14:37> Assessment and Plan (1) Atrial fibrillation with RVR: Status: Acute <QUINTIN Lomas - Last Filed: 10/25/20 14:37> This is a 65-year-old female with a history of schizophrenia, atrial fibrillation, asthma, hypothyroidism who was sent to the emergency department by [facility] due to medication noncompliance found to be in a flutter atrial fibrillation with rapid ventricular response r/t medication noncompliance -continue Cardizem drip, home dose of Multaq -start p.o. Lopressor 25 mg q.6 hours -echocardiogram -cardiology consult -check tsh -continue anticoagulation with Xarelto Elevated troponin Likely related to demand secondary to atrial fibrillation with rapid ventricular response Repeat troponin pending, already anticoagulated was rolled Hypothyroidism Continue Synthroid Morbid obesity BMI 50.5 Mood Noncompliant with medication Resume sertraline, risperidone, Cogentin Unclear when last dose of Invega was -psych consult for assistance with medication management Hyperlipidemia Continue statin DVT prophylaxis-Xarelto Code status-full code This case was discussed with <QUINTIN Lomas - Last Filed: 10/25/20 14:37>
--- NOTE | 2020-10-25 14:46 | PC.NURSE ---
spoke with admission hospitalist and for time being will hold lopressor until additional blood pressures are obtained as the patients BP has lowered.
[2020-10-25 15:01] LABS: Troponin-I High Sensitivity 34.4 ng/L (<3.5-17.0)
[2020-10-25 15:11] LABS: TSH reflex Free T4 5.48 uIU/mL (0.32-4.0)
--- NOTE | 2020-10-25 15:49 | PC.NURSE ---
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
--- NOTE | 2020-10-25 16:27 | PC.NURSE ---
patient ripped her IV out and stated that she wasnt staying in the hospital, notified hospitalist who is coming down to see patient, will start new iv site and connect her back to the IV, air sampling and monitoring HR is 148 at this time, will continue to monitor.
[2020-10-25 16:28] LABS: Free T4 (Free Thyroxine) 0.83 ng/dL (0.71-1.85)
--- NOTE | 2020-10-25 16:55 | PM.EVENT ---
Event Note Date of Service: 10/25/20 Event Note: Patient seen examined case discussed with APC Patient with past medical history of atrial fibrillation on Xarelto, history of schizophrenia stopped using her home medication for unknown duration was sent to [place] ER by [facility] patient in ER noted to be in atrial fibrillation with ventricular rate in 140s therefore treated with IV Cardizem and IV Lopressor heart rate remains elevated in 140s patient denies chest pain or shortness of breath but does complain of palpitation, patient troponin is 22.5 repeat troponin is in 30 On examination patient awake alert in no distress answering questions appropriately Lungs clear to auscultation Heart irregularly irregular Extremities no edema Assessment and plan Atrial fibrillation with RVR due to noncompliance with medication continue IV Cardizem drip since patient blood pressure is borderline low will treat her with digoxin load 0.25 mg q.6 hours x3, TSH 4.8, Elevated troponin likely due to AFib with RVR will check echo, and obtain cardio consultation Will hold [facility]. Schizophrenia continue home medication /patient need psych evaluation prior to discharge she cannot leave A
[2020-10-25] MEDS: 0.9 % Sodium Chloride Flush 3 ML SYRINGE IVFLUSH ×2 (17:23→22:18)
[2020-10-25] MEDS: Digoxin 0.5 MG/2 ML AMPUL 0.25 MG IVPUSH ×2 (17:24→22:17)
[2020-10-25] MEDS: risperiDONE 1 MG TABLET PO (20:59)
[2020-10-25] MEDS: Rivaroxaban 20 MG TABLET PO (21:00)
[2020-10-25] MEDS: Benztropine Mesylate 1 MG TABLET PO (21:00)
[2020-10-25] MEDS: Fluticasone Propionate Nasal 16 GM SPRAY 1 SPRAY NOSTRIL-B (22:17)
[2020-10-25] MEDS: dilTIAZem HCL 125 MG in 0.9 % Sodium Chloride 100 ML 15 MG IVCONT (22:24)
[2020-10-26] VITALS (13 sets, daily range): BP systolic 106–165; BP diastolic 51–86; PULSE 60–142; RESP 18–20; TEMP 36.3–36.9; O2SAT 94–96
--- NOTE | 2020-10-26 00:35 | PC.NURSE ---
Addendum entered by Avani Huff RN 10/26/20 06:24: pts heart rate remains labile throughout nigh, elevated with activity, down as low as 70s remaining in a flutter. Cardizem drip titrated as needed, will report to on coming RN Original Note: assumed care at 1900 pts heart rate afib 140's on tele, cardizem drip 15mg/ml. 2300 IV digoxin given 2215. pts heat rate remains 140's. made aware, new order for lopressor 5mg IV. admin as ordered. pts rhythm remains afib/afluter rate 90s to 1teens. pt removed L AC IV,pt resting in bed, call flaherty within reach, high fall risk precautions in place, telesitter at bedside
[2020-10-26] MEDS: Digoxin 0.5 MG/2 ML AMPUL 0.25 MG IVPUSH ×2 (05:09→11:22)
[2020-10-26 07:04] LABS: MANUAL DIFF FLAG NO
[2020-10-26 07:18] LABS: Basophils Percent Auto 0.4 % (0-2); Eosinophils Absolute Auto 0.2 X10*3/uL (0.0-0.4); Eosinophils Percent Auto 2.2 % (0-4); Hematocrit 41.6 % (37-47); Hemoglobin 13.2 g/dl (12.0-16.0); Imm Gran Abs Auto 0.02 X10*3/uL (0.00-0.03); Imm Gran Pct Auto 0.3 % (0.0-0.4); Lymphocytes Absolute Auto 2.2 X10*3/uL (1.2-4.9); Lymphocytes Percent Auto 28.3 % (20-40); Mean Corpuscular HGB Conc 31.7 g/dl (31.0-35.0); Mean Corpuscular Volume 91.4 fL (80-98); Mean Platelet Volume 9.6 fL (9.4-12.3); Monocytes Absolute Auto 0.8 X10*3/uL (0.1-1.2); Neutrophils Absolute Auto 4.5 X10*3/uL (2.0-8.3); Neutrophils Percent Auto 58.8 % (45-73); Platelet Count 288 X10*3/uL (160-400); Red Blood Count 4.55 X10*6/uL (4.20-5.50); Red Cell Distribution Width 14.9 % (11.0-16.0); White Blood Count 7.7 X10*3/uL (4.8-10.8)
[2020-10-26 07:37] LABS: Blood Urea Nitrogen 27 mg/dL (9-16); Creatinine Clr Calc Pharmacy 99.5; Estimated Glomerular Filt Rate > 60; Glucose Random 95 mg/dL (60-115)
[2020-10-26 07:57] LABS: Anion Gap 12 (12-20); Calcium 8.6 mg/dL (8.4-10.2); Carbon Dioxide 25 mmol/L (22-29); Chloride 111 mmol/L (96-108); Sodium 144 mmol/L (135-145)
[2020-10-26] MEDS: Loratadine 10 MG TABLET PO (08:13)
[2020-10-26] MEDS: risperiDONE 1 MG TABLET PO ×2 (08:14→20:34)
[2020-10-26] MEDS: Sertraline HCL 50 MG TABLET PO (08:14)
[2020-10-26] MEDS: Levothyroxine Sodium 112 MCG TABLET PO (08:14)
[2020-10-26] MEDS: Benztropine Mesylate 1 MG TABLET PO ×2 (08:14→20:34)
[2020-10-26] MEDS: Magnesium Oxide 400 MG TABLET PO (08:15)
[2020-10-26] MEDS: Sertraline HCL 100 MG TABLET PO (08:15)
[2020-10-26] MEDS: 0.9 % Sodium Chloride Flush 3 ML SYRINGE IVFLUSH ×3 (08:21→20:35)
[2020-10-26] MEDS: dilTIAZem HCL 125 MG in 0.9 % Sodium Chloride 100 ML 10 MG IVCONT (08:26)
--- NOTE | 2020-10-26 09:31 | P.PNIM_ITS ---
Subjective Subjective Date of Service: 10/26/20 <Aviva Guaman NP - Last Filed: 10/26/20 14:50> 10/26/20 <Dominic Lang MD - Last Filed: 10/26/20 14:54> Interval History: Follow up afib rvr, medication non compliance. There is limited history as patient is a paranoid schizophrenic and not giving information. <Aviva Guaman NP - Last Filed: 10/26/20 14:50> Physical Exam Vital Signs: Vital Signs: Last Vital Signs Temp 97.6 F 10/26/20 08:00 Pulse 104 H 10/26/20 08:00 Resp 18 10/26/20 08:00 BP 160/86 H 10/26/20 08:00 Pulse Ox 95 10/26/20 08:00 Body Mass Index 50.5 <Aviva Guaman NP - Last Filed: 10/26/20 14:50> Appearing in no acute distress, just staring when questions are asked head is normocephalic atraumatic eyes pupils are PERRLA sclera is anicteric mouth throat mucous membranes are intact and moist LS CTA heart IRR positive bowel sounds, abdomen is soft, nontender neuro patient is alert but not answering place, time or person <Aviva Guaman NP - Last Filed: 10/26/20 14:50> Objective Data Current Medications Generic Name Dose Route Start Last Admin Trade Name Freq PRN Reason Stop Dose Admin Acetaminophen 650 mg 10/25/20 14:32 Acetaminophen 325 Mg Tablet PO Q6H PRN Pain, Mild (Pain Scale 1-3) Albuterol Sulfate 2 puff 10/25/20 14:32 Albuterol Sulfate 90 Mcg 8 Gm Inhaler INHALE Q4H PRN dyspnea Atorvastatin Calcium 80 mg 10/25/20 21:00 10/25/20 21:13 Atorvastatin Calcium 80 Mg Tablet PO Not Given BEDTIME ANTONETTE Benztropine Mesylate 1 mg 10/25/20 21:00 10/26/20 08:14 Benztropine Mesylate 1 Mg Tablet PO 1 mg BID ANTONETTE Administration Docusate Sodium 100 mg 10/25/20 14:32 Docusate Sodium 100 Mg Capsule PO DAILY PRN Constipation Fluticasone Propionate 1 spray 10/25/20 21:00 10/25/20 22:17 Fluticasone Propionate Nasal 16 Gm [place] NOSTRIL-B 1 spray BID ANTONETTE Administration Diltiazem HCl 125 mg/ Sodium 125 mls @ 0 mls/hr 10/25/20 13:00 10/26/20 08:40 Chloride IVCONT 15 mg/hr .Q0M ANTONETTE 15 mls/hr Titration Protocol Per Protocol Levothyroxine Sodium 112 mcg 10/26/20 09:00 10/26/20 08:14 Levothyroxine Sodium 112 Mcg Tablet PO 112 mcg DAILY ANTONETTE Administration Loratadine 10 mg 10/26/20 09:00 10/26/20 08:13 Loratadine 10 Mg Tablet PO 10 mg DAILY ANTONETTE Administration Magnesium Oxide 400 mg 10/26/20 09:00 10/26/20 08:15 Magnesium Oxide 400 Mg Tablet PO 400 mg DAILY ANTONETTE Administration Melatonin 6 mg 10/25/20 14:41 Melatonin 3 Mg Tablet PO BEDTIME PRN insomnia Ondansetron HCl 4 mg 10/25/20 14:32 Ondansetron Hcl 4 Mg/2 Ml Vial IVPUSH Q8H PRN Nausea and Vomiting Pharmacy Consult 1 each 10/25/20 10:22 Consult Rx Perform Med Rec MISCELLANE ONCE PRN Consult order Risperidone 1 mg 10/25/20 14:32 Risperidone 0.5 Mg Tablet PO BEDTIME PRN anxiety Risperidone 1 mg 10/25/20 21:00 10/26/20 08:14 Risperidone 1 Mg Tablet PO 1 mg BID ANTONETTE Administration Rivaroxaban 20 mg 10/25/20 21:00 10/25/20 21:00 Rivaroxaban 20 Mg Tablet PO 20 mg BEDTIME ANTONETTE Administration Sertraline HCl 50 mg 10/26/20 09:00 10/26/20 08:14 Sertraline Hcl 50 Mg Tablet PO 50 mg DAILY ANTONETTE Administration Sertraline HCl 100 mg 10/26/20 09:00 10/26/20 08:15 Sertraline Hcl 100 Mg Tablet PO 100 mg DAILY ANTONETTE Administration Sodium Chloride 3 ml 10/25/20 16:00 10/26/20 08:21 0.9 % Sodium Chloride Flush 3 Ml Syringe IVFLUSH 3 ml QSHIFT ANTONETTE Administration <Aviva Guaman NP - Last Filed: 10/26/20 14:50> Labs CBC & Chem 7: : 10/26/20 06:14 10/26/20 06:14 <Aviva Guaman NP - Last Filed: 10/26/20 14:50> Assessment and Plan (1) Atrial fibrillation with RVR: Status: Acute <Aviva Guaman NP - Last Filed: 10/26/20 14:50> Assessment and Plan: This is a 65-year-old emirati speakin female with a history of schizophrenia, atrial fibrillation, asthma, hypothyroidism who was sent to the emergency department by [facility] due to medication noncompliance found to be in a flutter. # Atrial fibrillation with rapid ventricular response -Heart rate better controlled, Cardizem stopped. -start p.o. Lopressor 25 mg q.6 hours -4th loading dose of Digoxin 0.25 now. -echocardiogram -cardiology following -continue Xarelto and Multaq # Elevated troponin. Flat Likely related to demand secondary to atrial fibrillation with rapid ventricular respo # Hypothyroidism. TSH 5.48 -No change at this time, subclinical # Morbid obesity BMI 50.5 # Schizophrenia-Noncompliant with medication -resume sertraline, risperidone, Cogentin -psych consult for assistance with medication management # Hyperlipidemia Continue statin Attending: Dr. Lang <Aviva Guaman NP - Last Filed: 10/26/20 14:50>
--- NOTE | 2020-10-26 10:03 | MHC.CM.PN ---
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 Original Note: CM MET WITH PT WHO IS BILINGUAL(CHINESE/DJIBOUTIAN). PT CONFIRMS SHE LIVES ALONE BUT REPORTS I DON'T KNOW WHEN ASKED IF SHE WAS STILL ACTIVE WITH [facility]. PT CONFIRMS SHE HAS A CANE BUT REPORTS NOT ALWAYS NEEDING IT. PT IS GUARDED AND PROVIDES MINIMAL INFORMATION. PT DOES NOT HAVE A HCP ON FILE AND DECLINES TO DO ONE OR RECEIVE MORE INFORMATION REGARDING THE DOCUMENT. IMM REVIEWED VERBALLY AND PT NODS HER HEAD TO CONFIRM SHE UNDERSTANDS. COPY PROVIDED. CM WILL CONTACT [facility] TO DETERMINE IF THEY ARE STILL ACTIVE WTIH THIS PT AND OBTAIN MORE INFORMATION REGARDING PTS CURRENT COMMUNITY SUPPORTS. PT REPORTS SHE WILL NEED A CHAIR VAN HOME.
--- NOTE | 2020-10-26 11:01 | PM.CNCAR ---
History of Present Illness History of Present Illness Date of Service: 10/26/20 Consult reason: atrial fibrillation Chief complaint: Afib with RVR Narrative: This is a cardiology consultation regarding atrial flutter with rapid rate. She has a history of atrial fibrillation. She was apparently sent to the emergency room by visiting nurse due to medication noncompliance. Visiting nurse saw her and apparently noticed that she is not taking medications in a while. Then she was brought to the ER. She was found to be in atrial flutter with rapid rate. She has received some IV Lopressor then put on IV Cardizem drip. Patient does not have any specific complaints. She states that she did not think that she needed the medications and hence she stopped taking them. Otherwise, she has a history of permanent pacemaker implantation as well. Described to also have schizophrenia in the past history. Review of Systems Review of Systems: Yes all other systems are reviewed and are negative Cardiovascular: Cardiovascular: Reports as per HPI, Reports no additional cardiovascular complaints, Denies acrocyanosis, Denies cool extremities, Denies painful fingertips, Denies chest pain, Denies chest pain at rest, Denies diaphoresis, Denies syncope, Denies irregular heart rhythm, Denies claudication, Denies leg edema, Denies lightheadedness, Denies palpitations and Denies dyspnea Respiratory: Respiratory: Denies dyspnea Neurologic: Denies syncope Endocrine: Endocrine: Denies palpitations PMFSH Past Medical History Medical History (Updated 10/26/20 @ 11:06 by Reno Sotomayor MD) Afib Asthma HTN (hypertension) Hypothyroid Pacemaker Pneumonia due to COVID-19 virus Schizophrenia Functional capacity: uses cane/walker Family History Family History Other Heart disease Family history: reviewed and not pertinent Surgical History Surgical History Hx of kidney removal Hx of removal of ovary Social History Social History Household Members: None Housing: Apartment Do you presently have visiting nurse or other home services: Yes Smoking Status: Former smoker Use of substances other than those prescribed or required for medical reasons: No Currently Displaying Signs/Symptoms of Drug Intoxication Withdrawal: No Advance Directives: No Advance Directives Information Provided: No Do you have thoughts of harming others: None Do you have a plan to hurt others: No Plan Recently lost weight without trying: No service: No Current occupational status: disabled Meds Allergies Allergy/AdvReac Type Severity Reaction Status Date / Time No Known Allergies Allergy Verified 07/30/20 11:27 Active Medications: Current Medications Generic Name Dose Route Start Last Admin Trade Name Freq PRN Reason Stop Dose Admin Acetaminophen 650 mg 10/25/20 14:32 Acetaminophen 325 Mg Tablet PO Q6H PRN Pain, Mild (Pain Scale 1-3) Albuterol Sulfate 2 puff 10/25/20 14:32 Albuterol Sulfate 90 Mcg 8 Gm Inhaler INHALE Q4H PRN dyspnea Atorvastatin Calcium 80 mg 10/25/20 21:00 10/25/20 21:13 Atorvastatin Calcium 80 Mg Tablet PO Not Given BEDTIME ANTONETTE Benztropine Mesylate 1 mg 10/25/20 21:00 10/26/20 08:14 Benztropine Mesylate 1 Mg Tablet PO 1 mg BID ANTONETTE Administration Docusate Sodium 100 mg 10/25/20 14:32 Docusate Sodium 100 Mg Capsule PO DAILY PRN Constipation Fluticasone Propionate 1 spray 10/25/20 21:00 10/25/20 22:17 Fluticasone Propionate Nasal 16 Gm [place] NOSTRIL-B 1 spray BID ANTONETTE Administration Diltiazem HCl 125 mg/ Sodium 125 mls @ 0 mls/hr 10/25/20 13:00 10/26/20 08:40 Chloride IVCONT 15 mg/hr .Q0M ANTONETTE 15 mls/hr Titration Protocol Per Protocol Levothyroxine Sodium 112 mcg 10/26/20 09:00 10/26/20 08:14 Levothyroxine Sodium 112 Mcg Tablet PO 112 mcg DAILY ANTONETTE Administration Loratadine 10 mg 10/26/20 09:00 10/26/20 08:13 Loratadine 10 Mg Tablet PO 10 mg DAILY ANTONETTE Administration Lorazepam 0.5 mg 10/26/20 10:58 Lorazepam 0.5 Mg Tablet PO 10/26/20 10:59 ONCE ONE Magnesium Oxide 400 mg 10/26/20 09:00 10/26/20 08:15 Magnesium Oxide 400 Mg Tablet PO 400 mg DAILY ANTONETTE Administration Melatonin 6 mg 10/25/20 14:41 Melatonin 3 Mg Tablet PO BEDTIME PRN insomnia Metoprolol Tartrate 25 mg 10/26/20 13:00 Metoprolol Tartrate 25 Mg Tablet PO QID ANTONETTE Protocol Ondansetron HCl 4 mg 10/25/20 14:32 Ondansetron Hcl 4 Mg/2 Ml Vial IVPUSH Q8H PRN Nausea and Vomiting Pharmacy Consult 1 each 10/25/20 10:22 Consult Rx Perform Med Rec MISCELLANE ONCE PRN Consult order Risperidone 1 mg 10/25/20 14:32 Risperidone 0.5 Mg Tablet PO BEDTIME PRN anxiety Risperidone 1 mg 10/25/20 21:00 10/26/20 08:14 Risperidone 1 Mg Tablet PO 1 mg BID ANTONETTE Administration Rivaroxaban 20 mg 10/25/20 21:00 10/25/20 21:00 Rivaroxaban 20 Mg Tablet PO 20 mg BEDTIME ANTONETTE Administration Sertraline HCl 50 mg 10/26/20 09:00 10/26/20 08:14 Sertraline Hcl 50 Mg Tablet PO 50 mg DAILY ANTONETTE Administration Sertraline HCl 100 mg 10/26/20 09:00 10/26/20 08:15 Sertraline Hcl 100 Mg Tablet PO 100 mg DAILY ANTONETTE Administration Sodium Chloride 3 ml 10/25/20 16:00 10/26/20 08:21 0.9 % Sodium Chloride Flush 3 Ml Syringe IVFLUSH 3 ml QSHIFT ANTONETTE Administration Home Medications Medication Instructions Recorded Confirmed Last Taken Type Invega Sustenna 234 mg IM Q4W 07/30/20 10/25/20 08/19/20 History Multaq 400 mg PO BID 07/30/20 10/25/20 Unknown History Xarelto 20 mg PO BEDTIME 07/30/20 10/25/20 Unknown History albuterol sulfate [ProAir HFA] 2 puff PO Q4H PRN 07/30/20 10/25/20 Unknown History atorvastatin 80 mg PO BEDTIME 07/30/20 10/25/20 Unknown History benztropine 1 mg PO BID 07/30/20 10/25/20 Unknown History levothyroxine 112 mcg PO DAILY 07/30/20 10/25/20 Unknown History loratadine 10 mg PO DAILY 07/30/20 10/25/20 Unknown History magnesium oxide 400 mg PO DAILY 07/30/20 10/25/20 Unknown History melatonin 1 - 2 tab PO BEDTIME PRN 07/30/20 10/25/20 Unknown History potassium chloride 20 meq PO DAILY 07/30/20 10/25/20 Unknown History risperidone 1 mg PO BEDTIME PRN 07/30/20 10/25/20 Unknown History risperidone 1 tab PO BID 07/30/20 10/25/20 Unknown History sertraline 100 mg PO DAILY 07/30/20 10/25/20 Unknown History fluticasone propionate [Flonase] 1 spray INTRANASAL BID 10/25/20 10/25/20 Unknown History sertraline 50 mg PO DAILY 10/25/20 10/25/20 Unknown History tizanidine 4 mg PO BEDTIME PRN 10/25/20 10/25/20 Unknown History Physical Exam Vital Signs: Vital Signs: Last Vital Signs Temp 97.6 F 10/26/20 08:00 Pulse 104 H 10/26/20 08:00 Resp 18 10/26/20 08:00 BP 160/86 H 10/26/20 08:00 Pulse Ox 95 10/26/20 08:00 Body Mass Index 50.5 Const: General: cooperative, comfortable and no acute distress Orientation/consciousness: patient oriented x3 HENMT: Other: Unremarkable Neck: Neck: Yes normal visual inspection Chest: Chest palpation & inspection: normal inspection of the chest Resp: Auscultation: clear to auscultation bilaterally, no crackles and no wheezes Cardio: Jugular venous distension: no JVD Palpation: normal PMI Heart sounds: S1 normal heart sound present, S2 normal heart sound present, no gallops, no murmurs and no rubs GI: Palpation (GI): Soft to palpation Back/Spine/Pelvis: Other: unremarkable Skin: General skin exam: no rashes or lesions noted Neuro: General: patient oriented x3 Extrem: General: Yes no clubbing, cyanosis or edema Psych: Mental Status: mental status grossly normal Results Labs and Meds Result diagrams: 10/26/20 06:14 10/26/20 06:14 Lab results: Laboratory Results - last 24 hr 10/25/20 10/25/20 10/25/20 10:42 10:42 11:59 WBC RBC Hgb Hct MCV MCH MCHC RDW Plt Count MPV Immature Gran % (Auto) Neut % (Auto) Lymph % (Auto) Cotton % (Auto) Eos % (Auto) Baso % (Auto) Lymph # (Auto) Cotton # (Auto) Eos # (Auto) Baso # (Auto) Abs Immat Gran (auto) Absolute Neuts (auto) Absolute Nucleated RBC Nucleated RBC % (auto) Sodium 144 Potassium 4.9 Chloride 107 Carbon Dioxide 20 L Anion Gap 22 H BUN 32 H D Creatinine 0.91 Estim Creat Clear Calc 80.8 Estimated GFR > 60 Random Glucose 88 Calcium 9.7 D Magnesium 2.0 Total Bilirubin 0.6 Direct Bilirubin 0.2 AST 47 H D ALT 31 Alkaline Phosphatase 102 D Troponin I High Sens 22.5 H D B-Natriuretic Peptide 311 H Total Protein 7.9 Albumin 4.1 D TSH 5.48 H Free T4 0.83 COVID-19 (VIC) Negative COVID-19 Clin Com See Note 10/25/20 10/26/20 10/26/20 14:24 06:14 06:14 WBC 7.7 RBC 4.55 Hgb 13.2 Hct 41.6 MCV 91.4 MCH 29.0 MCHC 31.7 RDW 14.9 Plt Count 288 MPV 9.6 Immature Gran % (Auto) 0.3 Neut % (Auto) 58.8 Lymph % (Auto) 28.3 Cotton % (Auto) 10.0 Eos % (Auto) 2.2 Baso % (Auto) 0.4 Lymph # (Auto) 2.2 Cotton # (Auto) 0.8 Eos # (Auto) 0.2 Baso # (Auto) 0.0 Abs Immat Gran (auto) 0.02 Absolute Neuts (auto) 4.5 Absolute Nucleated RBC 0.000 Nucleated RBC % (auto) 0.0 Sodium 144 Potassium 4.0 Chloride 111 H Carbon Dioxide 25 Anion Gap 12 BUN 27 H Creatinine 0.74 Estim Creat Clear Calc 99.5 Estimated GFR > 60 Random Glucose 95 Calcium 8.6 D Magnesium Total Bilirubin Direct Bilirubin AST ALT Alkaline Phosphatase Troponin I High Sens 34.4 H D B-Natriuretic Peptide Total Protein Albumin TSH Free T4 COVID-19 (IVC) COVID-19 Clin Com Imaging Radiologist's impression: Impressions Chest X-Ray 10/25/20 10:50 IMPRESSION: Likely bibasilar atelectasis. No acute consolidation seen. Assessment and Plan (1) Atrial flutter with rapid ventricular response: Status: Acute (2) Pacemaker: Status: Acute (3) Schizophrenia: Qualifiers: Schizophrenia type: unspecified Qualified Code(s): F20.9 - Schizophrenia, unspecified Status: Acute She is on Multaq, Xarelto as an outpatient but as discussed above, has not taken them recently. Currently on diltiazem drip. Continue that. Also has received 3 doses of digoxin and she can complete the 4th loading dose. Can also start on oral beta-blockers as the blood pressure is on the higher side. With medication noncompliance, she is not a candidate for any MENG or cardioversion. Will focus on rate control only. Continue with anticoagulation. Slightly elevated high sensitive troponins are likely from the atrial flutter with rapid rate and does not need any specific care. Echocardiogram -2019-LVEF 60-65%; moderate diastolic dysfunction; mildly dilated left atrium; [id number] mitral regurgitation. Procedures Date of Service Date of Service: 10/26/20
[2020-10-26] MEDS: LORazepam 0.5 MG TABLET PO (11:23)
[2020-10-26] MEDS: Metoprolol Tartrate 25 MG TABLET PO ×2 (17:15→20:34)
[2020-10-26] MEDS: Rivaroxaban 20 MG TABLET PO (20:34)
[2020-10-26] MEDS: Atorvastatin Calcium 80 MG TABLET PO (20:34)
[2020-10-26] MEDS: risperiDONE 0.5 MG TABLET 1 MG PO (23:13)
[2020-10-26] MEDS: Melatonin 3 MG TABLET 6 MG PO (23:13)
[2020-10-27] VITALS (12 sets, daily range): BP systolic 102–156; BP diastolic 55–78; PULSE 58–75; RESP 18–20; TEMP 36.4–37.3; O2SAT 90–99
[2020-10-27] MEDS: Metoprolol Tartrate 25 MG TABLET PO ×2 (03:07→08:56)
--- NOTE | 2020-10-27 08:51 | P.PNIM_ITS ---
Subjective Subjective Date of Service: 10/27/20 Interval History: Follow-up for atrial fibrillation with rapid ventricular response. Patient denies pain or discomfort however is difficult to engage as patient does not give a lot of information. Physical Exam Vital Signs: Vital Signs: Last Vital Signs Temp 97.6 F 10/27/20 07:24 Pulse 68 10/27/20 07:25 Resp 20 10/27/20 07:25 BP 145/66 H 10/27/20 07:25 Pulse Ox 98 10/27/20 07:25 Body Mass Index 50.5 Appearing in no acute distress, at times patient just stares when asked a question, takes some prodding for patient to answer. lung sounds are clear to auscultation heart regular rate rhythm, clear S1, S2 positive bowel sounds, abdomen is soft, nontender neuro patient is alert Objective Data Current Medications Generic Name Dose Route Start Last Admin Trade Name Freq PRN Reason Stop Dose Admin Acetaminophen 650 mg 10/25/20 14:32 Acetaminophen 325 Mg Tablet PO Q6H PRN Pain, Mild (Pain Scale 1-3) Albuterol Sulfate 2 puff 10/25/20 14:32 Albuterol Sulfate 90 Mcg 8 Gm Inhaler INHALE Q4H PRN dyspnea Atorvastatin Calcium 80 mg 10/25/20 21:00 10/26/20 20:34 Atorvastatin Calcium 80 Mg Tablet PO 80 mg BEDTIME ANTONETTE Administration Benztropine Mesylate 1 mg 10/25/20 21:00 10/26/20 20:34 Benztropine Mesylate 1 Mg Tablet PO 1 mg BID ANTONETTE Administration Docusate Sodium 100 mg 10/25/20 14:32 Docusate Sodium 100 Mg Capsule PO DAILY PRN Constipation Dronedarone 400 mg 10/27/20 09:00 Dronedarone Hcl 400 Mg Tablet PO BID ANTONETTE Fluticasone Propionate 1 spray 10/25/20 21:00 10/26/20 20:35 Fluticasone Propionate Nasal 16 Gm [place] NOSTRIL-B Not Given BID ANTONETTE Levothyroxine Sodium 112 mcg 10/26/20 09:00 10/26/20 08:14 Levothyroxine Sodium 112 Mcg Tablet PO 112 mcg DAILY ANTONETTE Administration Loratadine 10 mg 10/26/20 09:00 10/26/20 08:13 Loratadine 10 Mg Tablet PO 10 mg DAILY ANTONETTE Administration Magnesium Oxide 400 mg 10/26/20 09:00 10/26/20 08:15 Magnesium Oxide 400 Mg Tablet PO 400 mg DAILY ANTONETTE Administration Melatonin 6 mg 10/25/20 14:41 10/26/20 23:13 Melatonin 3 Mg Tablet PO 6 mg BEDTIME PRN Administration insomnia Metoprolol Tartrate 25 mg 10/26/20 14:33 10/27/20 03:07 Metoprolol Tartrate 25 Mg Tablet PO 25 mg Q6H ANTONETTE Administration Protocol Ondansetron HCl 4 mg 10/25/20 14:32 Ondansetron Hcl 4 Mg/2 Ml Vial IVPUSH Q8H PRN Nausea and Vomiting Pharmacy Consult 1 each 10/25/20 10:22 Consult Rx Perform Med Rec MISCELLANE ONCE PRN Consult order Risperidone 1 mg 10/25/20 14:32 10/26/20 23:13 Risperidone 0.5 Mg Tablet PO 1 mg BEDTIME PRN Administration anxiety Risperidone 1 mg 10/25/20 21:00 10/26/20 20:34 Risperidone 1 Mg Tablet PO 1 mg BID ANTONETTE Administration Rivaroxaban 20 mg 10/25/20 21:00 10/26/20 20:34 Rivaroxaban 20 Mg Tablet PO 20 mg BEDTIME ANTONETTE Administration Sertraline HCl 50 mg 10/26/20 09:00 10/26/20 08:14 Sertraline Hcl 50 Mg Tablet PO 50 mg DAILY ANTONETTE Administration Sertraline HCl 100 mg 10/26/20 09:00 10/26/20 08:15 Sertraline Hcl 100 Mg Tablet PO 100 mg DAILY ANTONETTE Administration Sodium Chloride 3 ml 10/25/20 16:00 10/26/20 20:35 0.9 % Sodium Chloride Flush 3 Ml Syringe IVFLUSH 3 ml QSHIFT ANTONETTE Administration Labs CBC & Chem 7: 10/26/20 06:14 10/26/20 06:14 Assessment and Plan (1) Atrial fibrillation with RVR: Status: Acute Assessment and Plan: This is a 65-year-old martiniquais/equatorial guinean speaking female with a history of schizophrenia, atrial fibrillation, asthma, hypothyroidism who was sent to the emergency department by [facility] due to medication noncompliance found to be in aflutter. # Atrial fibrillation with rapid ventricular response-Still in afib but heart rate controlled. -Cardizem drip stopped on 10/26, received 4 doses of digoxin. -Change Lopressor to 50mg BID, add Cardizem 120mg daily. Continue Xarelto and stop Multaq. -echocardiogram -cardiology following # Schizophrenia-Noncompliant with medication-Contacted her daughter Aviva Yu ([phone]) -resume sertraline, risperidone, Cogentin -will need psych evaluation, concern for safety at home and psychiatric medication management # Elevated troponin. Flat Likely related to demand secondary to atrial fibrillation with rapid ventricular response # Hypothyroidism. TSH 5.48 -No change at this time, subclinical # Morbid obesity BMI 50.5 # Hyperlipidemia Continue statin Attending: Dr. Lang
[2020-10-27] MEDS: Dronedarone HCl 400 MG TABLET PO (08:56)
[2020-10-27] MEDS: Sertraline HCL 50 MG TABLET PO (08:56)
[2020-10-27] MEDS: Levothyroxine Sodium 112 MCG TABLET PO (08:56)
[2020-10-27] MEDS: Magnesium Oxide 400 MG TABLET PO (08:56)
[2020-10-27] MEDS: Loratadine 10 MG TABLET PO (08:56)
[2020-10-27] MEDS: Sertraline HCL 100 MG TABLET PO (08:56)
[2020-10-27] MEDS: Benztropine Mesylate 1 MG TABLET PO ×2 (08:56→20:52)
[2020-10-27] MEDS: risperiDONE 1 MG TABLET PO ×2 (08:56→20:54)
[2020-10-27] MEDS: 0.9 % Sodium Chloride Flush 3 ML SYRINGE IVFLUSH ×3 (08:56→20:54)
--- NOTE | 2020-10-27 10:22 | P.ACPN_ITS ---
Advanced Care Planning Note Advanced Care Planning Note Discussed with: family member(s) Time spent (in minutes): 16 Narrative: 65-year-old [place] / Mohawk speaking woman admitted with medication noncompliance. Patient found to be in atrial fibrillation with rapid ventricular response. Patient also has a history of paranoid schizophrenia and had stopped taking her medications including her psychiatric and cardiac medications. It is unknown when exactly she stopped. Conversation was had with her daughter Aviva Yu ([phone]). She stated that she has had some concerns for her mother. Her mother lives alone and has a history of paranoid schizophrenia, feels like she is a burden and hears voices. Her daughter reported that it seems to be a crisis pattern when the patient feels better she stops taking all of her medications and gets frustrated with them and then mentally declines. Her daughter reported that when there was actually time when the patient became so confusion with hallucinations that she left her house and she was found by the police walking with no shoes on. Apparently the patient does have some a necklace to her house to his sister with medications but this is not every day. Her daughter stated that she would be interested in looking into other options for living facility for her mother including assisted living. Due to the patient's paranoid schizophrenia she will not go to live with her children because she feels like she is a burden. At this point the patient will need evaluation by the psychiatric team for possible inpatient psychiatric treatment. Her daughter Aviva, is in agreement with this. Problems Discussed (1) Atrial fibrillation with RVR: (2) Schizophrenia:
--- NOTE | 2020-10-27 11:01 | PM.PNCARD ---
Subjective Subjective Date of Service: 10/27/20 Interval history: She states that she feels better. No specific complaints. Review of Systems Review of Systems Yes all other systems are reviewed and are negative Cardiovascular: Reports as per HPI, Reports no additional cardiovascular complaints, Denies acrocyanosis, Denies cool extremities, Denies painful fingertips, Denies chest pain, Denies chest pain at rest, Denies diaphoresis, Denies syncope, Denies irregular heart rhythm, Denies claudication, Denies leg edema, Denies lightheadedness, Denies palpitations and Denies dyspnea Respiratory: Denies dyspnea Denies syncope Endocrine: Denies palpitations Physical Exam Vital Signs: Last Vital Signs Temp 97.6 F 10/27/20 07:24 Pulse 68 10/27/20 08:56 Resp 20 10/27/20 07:25 BP 145/66 H 10/27/20 08:56 Pulse Ox 98 10/27/20 07:25 Body Mass Index 50.5 Const General: cooperative, comfortable and no acute distress Orientation/consciousness: patient oriented x3 HENMT Other: Unremarkable Neck Neck: Yes normal visual inspection Chest Chest palpation & inspection: normal inspection of the chest Resp Auscultation: clear to auscultation bilaterally, no crackles and no wheezes Cardio Jugular venous distension: no JVD Palpation: normal PMI Heart sounds: S1 normal heart sound present, S2 normal heart sound present, no gallops, no murmurs and no rubs GI Palpation (GI): Soft to palpation Back/Spine/Pelvis Other: unremarkable Skin General skin exam: no rashes or lesions noted Neuro General: patient oriented x3 Extrem General: Yes no clubbing, cyanosis or edema Psych Mental Status: mental status grossly normal Results Labs and Meds Result diagrams: 10/26/20 06:14 10/26/20 06:14 Progress Note: A&P Assessment and plan (1) Atrial flutter with rapid ventricular response: Status: Acute (2) Pacemaker: Status: Acute (3) Schizophrenia: Status: Acute Assessment and Plan: She was on Multaq, Xarelto as an outpatient but has not taken them recently. With Cardizem drip and oral beta-blockers, she converted to sinus rhythm. We can start her on metoprolol 50 mg b.i.d.. Can also to keep on a small dose of Cardizem CD 1 20 mg daily. Stop the Multaq. Continue Xarelto. On telemetry, she seems to be in sinus rhythm since yesterday afternoon.. Slightly elevated high sensitive troponins are likely from the atrial flutter with rapid rate and does not need any specific care. Echocardiogram -2019-LVEF 60-65%; moderate diastolic dysfunction; mildly dilated left atrium; [id number] mitral regurgitation. Fall Risk Details Current Medications: Current Medications Generic Name Dose Route Start Last Admin Trade Name Freq PRN Reason Stop Dose Admin Acetaminophen 650 mg 10/25/20 14:32 Acetaminophen 325 Mg Tablet PO Q6H PRN Pain, Mild (Pain Scale 1-3) Albuterol Sulfate 2 puff 10/25/20 14:32 Albuterol Sulfate 90 Mcg 8 Gm Inhaler INHALE Q4H PRN dyspnea Atorvastatin Calcium 80 mg 10/25/20 21:00 10/26/20 20:34 Atorvastatin Calcium 80 Mg Tablet PO 80 mg BEDTIME ANTONETTE Administration Benztropine Mesylate 1 mg 10/25/20 21:00 10/27/20 08:56 Benztropine Mesylate 1 Mg Tablet PO 1 mg BID ANTONETTE Administration Docusate Sodium 100 mg 10/25/20 14:32 Docusate Sodium 100 Mg Capsule PO DAILY PRN Constipation Fluticasone Propionate 1 spray 10/25/20 21:00 10/27/20 08:57 Fluticasone Propionate Nasal 16 Gm [place] NOSTRIL-B Not Given BID ANTONETTE Levothyroxine Sodium 112 mcg 10/26/20 09:00 10/27/20 08:56 Levothyroxine Sodium 112 Mcg Tablet PO 112 mcg DAILY ANTONETTE Administration Loratadine 10 mg 10/26/20 09:00 10/27/20 08:56 Loratadine 10 Mg Tablet PO 10 mg DAILY ANTONETTE Administration Magnesium Oxide 400 mg 10/26/20 09:00 10/27/20 08:56 Magnesium Oxide 400 Mg Tablet PO 400 mg DAILY ANTONETTE Administration Melatonin 6 mg 10/25/20 14:41 10/26/20 23:13 Melatonin 3 Mg Tablet PO 6 mg BEDTIME PRN Administration insomnia Ondansetron HCl 4 mg 10/25/20 14:32 Ondansetron Hcl 4 Mg/2 Ml Vial IVPUSH Q8H PRN Nausea and Vomiting Pharmacy Consult 1 each 10/25/20 10:22 Consult Rx Perform Med Rec MISCELLANE ONCE PRN Consult order Risperidone 1 mg 10/25/20 14:32 10/26/20 23:13 Risperidone 0.5 Mg Tablet PO 1 mg BEDTIME PRN Administration anxiety Risperidone 1 mg 10/25/20 21:00 10/27/20 08:56 Risperidone 1 Mg Tablet PO 1 mg BID ANTONETTE Administration Rivaroxaban 20 mg 10/25/20 21:00 10/26/20 20:34 Rivaroxaban 20 Mg Tablet PO 20 mg BEDTIME ANTONETTE Administration Sertraline HCl 50 mg 10/26/20 09:00 10/27/20 08:56 Sertraline Hcl 50 Mg Tablet PO 50 mg DAILY ANTONETTE Administration Sertraline HCl 100 mg 10/26/20 09:00 10/27/20 08:56 Sertraline Hcl 100 Mg Tablet PO 100 mg DAILY ANTONETTE Administration Sodium Chloride 3 ml 10/25/20 16:00 10/27/20 08:56 0.9 % Sodium Chloride Flush 3 Ml Syringe IVFLUSH 3 ml QSHIFT ANTONETTE Administration Time Spent With Patient Time: Total time spent is greater than 50% in coordination of care (as documented) at patient's floor/unit and/or counseling patient: Time with patient: less than 15 minutes Procedures Date of Service Date of Service: 10/27/20
[2020-10-27] MEDS: Metoprolol Tartrate 50 MG TABLET PO ×2 (12:35→20:54)
[2020-10-27] MEDS: dilTIAZem HCL CD 120 MG CAP.ER.DEG PO (12:36)
[2020-10-27] MEDS: Atorvastatin Calcium 80 MG TABLET PO (20:52)
[2020-10-27] MEDS: Rivaroxaban 20 MG TABLET PO (20:52)
[2020-10-28] VITALS (7 sets, daily range): BP systolic 101–155; BP diastolic 61–75; PULSE 58–60; RESP 16–20; TEMP 36.2–36.8; O2SAT 92–95; BMI 50.5
[2020-10-28] MEDS: Benztropine Mesylate 1 MG TABLET PO ×2 (09:15→20:13)
[2020-10-28] MEDS: 0.9 % Sodium Chloride Flush 3 ML SYRINGE IVFLUSH ×3 (09:15→20:13)
[2020-10-28] MEDS: Loratadine 10 MG TABLET PO (09:15)
[2020-10-28] MEDS: Sertraline HCL 100 MG TABLET PO (09:15)
[2020-10-28] MEDS: risperiDONE 1 MG TABLET PO (09:15)
[2020-10-28] MEDS: Levothyroxine Sodium 112 MCG TABLET PO (09:15)
[2020-10-28] MEDS: Sertraline HCL 50 MG TABLET PO (09:16)
[2020-10-28] MEDS: dilTIAZem HCL CD 120 MG CAP.ER.DEG PO (09:16)
[2020-10-28] MEDS: Magnesium Oxide 400 MG TABLET PO (09:16)
[2020-10-28] MEDS: Metoprolol Tartrate 50 MG TABLET PO ×2 (09:16→20:12)
--- NOTE | 2020-10-28 13:21 | HO.PM.IMPN ---
Subjective Subjective Date of Service: 10/28/20 Interval History: the patient was seen and evaluated this morning Laying in bed, feels comfortable Denies any fever, chills or shortness of breath feels mildly anxious No reported other overnight events. Systemic review: No fever, chills or weakness No chest pain, palpitation No shortness of breath or coughing No abdominal pain, nausea or vomiting No urinary symptoms No any rash or wounds Physical Exam Vital Signs: Vital Signs: Last Vital Signs Temp 98.2 F 10/28/20 11:31 Pulse 60 10/28/20 11:31 Resp 20 10/28/20 11:31 BP 120/61 10/28/20 11:31 Pulse Ox 95 10/28/20 11:31 Body Mass Index 50.5 Const: Other: Constitutional : Alert, oriented, not in distress Neck : Normal inspection, Supple Cardiovascular : RRR, S1 S2, no lower extremity edema Respiratory : Good bilateral air entry, no crackles, wheezes or rhonchi Gastrointestinal: soft, lax, Normal bowel sounds, Non tender Skin : Warm/Dry, No rash Neurological : Alert & oriented x3, No focal deficit Objective Data Current Medications Generic Name Dose Route Start Last Admin Trade Name Freq PRN Reason Stop Dose Admin Acetaminophen 650 mg 10/25/20 14:32 Acetaminophen 325 Mg Tablet PO Q6H PRN Pain, Mild (Pain Scale 1-3) Albuterol Sulfate 2 puff 10/25/20 14:32 Albuterol Sulfate 90 Mcg 8 Gm Inhaler INHALE Q4H PRN dyspnea Atorvastatin Calcium 80 mg 10/25/20 21:00 10/27/20 20:52 Atorvastatin Calcium 80 Mg Tablet PO 80 mg BEDTIME ANTONETTE Administration Benztropine Mesylate 1 mg 10/25/20 21:00 10/28/20 09:15 Benztropine Mesylate 1 Mg Tablet PO 1 mg BID ANTONETTE Administration Diltiazem HCl 120 mg 10/27/20 11:05 10/28/20 09:16 Diltiazem Hcl Cd 120 Mg Cap.Er.Deg PO 120 mg DAILY ANTONETTE Administration Protocol Docusate Sodium 100 mg 10/25/20 14:32 Docusate Sodium 100 Mg Capsule PO DAILY PRN Constipation Fluticasone Propionate 1 spray 10/25/20 21:00 10/28/20 09:16 Fluticasone Propionate Nasal 16 Gm [place] NOSTRIL-B Not Given BID ANTONETTE Levothyroxine Sodium 112 mcg 10/26/20 09:00 10/28/20 09:15 Levothyroxine Sodium 112 Mcg Tablet PO 112 mcg DAILY ANTONETTE Administration Loratadine 10 mg 10/26/20 09:00 10/28/20 09:15 Loratadine 10 Mg Tablet PO 10 mg DAILY ANTONETTE Administration Magnesium Oxide 400 mg 10/26/20 09:00 10/28/20 09:16 Magnesium Oxide 400 Mg Tablet PO 400 mg DAILY ANTONETTE Administration Melatonin 6 mg 10/25/20 14:41 10/26/20 23:13 Melatonin 3 Mg Tablet PO 6 mg BEDTIME PRN Administration insomnia Metoprolol Tartrate 50 mg 10/27/20 11:00 10/28/20 09:16 Metoprolol Tartrate 50 Mg Tablet PO 50 mg BID ANTONETTE Administration Protocol Ondansetron HCl 4 mg 10/25/20 14:32 Ondansetron Hcl 4 Mg/2 Ml Vial IVPUSH Q8H PRN Nausea and Vomiting Pharmacy Consult 1 each 10/25/20 10:22 Consult Rx Perform Med Rec MISCELLANE ONCE PRN Consult order Risperidone 1 mg 10/25/20 14:32 10/26/20 23:13 Risperidone 0.5 Mg Tablet PO 1 mg BEDTIME PRN Administration anxiety Risperidone 1 mg 10/25/20 21:00 10/28/20 09:15 Risperidone 1 Mg Tablet PO 1 mg BID ANTONETTE Administration Rivaroxaban 20 mg 10/25/20 21:00 10/27/20 20:52 Rivaroxaban 20 Mg Tablet PO 20 mg BEDTIME ANTONETTE Administration Sertraline HCl 50 mg 10/26/20 09:00 10/28/20 09:16 Sertraline Hcl 50 Mg Tablet PO 50 mg DAILY ANTONETTE Administration Sertraline HCl 100 mg 10/26/20 09:00 10/28/20 09:15 Sertraline Hcl 100 Mg Tablet PO 100 mg DAILY ANTONETTE Administration Sodium Chloride 3 ml 10/25/20 16:00 10/28/20 09:15 0.9 % Sodium Chloride Flush 3 Ml Syringe IVFLUSH 3 ml QSHIFT ANTONETTE Administration Labs CBC & Chem 7: 10/26/20 06:14 10/26/20 06:14 Assessment and Plan (1) Atrial fibrillation with RVR: Status: Acute Assessment and Plan: This is a 65-year-old uzbek/mongolian speaking female with a history of schizophrenia, atrial fibrillation, asthma, hypothyroidism who was sent to the emergency department by [facility] due to medication noncompliance found to be in aflutter. Atrial fibrillation with rapid ventricular response converted to sinus rhythm Cardizem drip stopped on 10/26 Change Lopressor to 50mg BID, add Cardizem 120mg daily Continue Xarelto stop Multaq. pending echocardiogram cardiology input appreciated Schizophrenia-Noncompliant with medication-Contacted her daughter Aviva Yu ([phone]) resume sertraline, risperidone, Cogentin pending psych evaluation, concern for safety at home and psychiatric medication management Elevated troponin. Flat Likely related to demand secondary to atrial fibrillation with rapid ventricular response Hypothyroidism. TSH 5.48 No change at this time, subclinical Morbid obesity BMI 50.5 Advised to lsoe weight as it is contributing to her all over illness Hyperlipidemia Continue statin DVT PPx Xarelto
--- NOTE | 2020-10-28 14:19 | CA_ITS ---
Transthoracic Echocardiogram Patient (Last, First, Middle): Shahla Granados, Gender: Female Date of : 1955 Age: 65 Procedure Date: 10/28/2020 Procedure Type: Transthoracic Echocardiogram Location: [facility] [place] Height: 160.02 cm Weight: 129.28 kg BSA: 2.25 m2 Heart Rate: bpm BP: 135 / 67 mmHg Landscape Horticulture Instructor: HERNANDO Hitchcock MD: Ivon RIBEIRO Symptoms: afib rvr Study Quality: Fair Conclusions: - The visually estimated ejection fraction is between 50-55%. - Abnormal diastolic function is noted. Spectral Doppler is indicative of a pseudonormal filling pattern. Elevated filling pressures. - The left atrium is moderately dilated. Findings Left Ventricle Normal left ventricular cavity size. There is mildly increased left ventricular wall thickness. The left ventricular systolic function is low normal. The visually estimated ejection fraction is between 50-55%. There is mild global hypokinesis. Abnormal diastolic function is noted. Spectral Doppler is indicative of a pseudonormal filling pattern. Elevated filling pressures. Right Ventricle Normal right ventricular cavity size and systolic function. Atria The left atrium is moderately dilated. Aortic Valve Normal aortic valve structure and function. There is no aortic valve stenosis. There is no aortic valve regurgitation. Mitral Valve Normal mitral valve structure and function. There is trace mitral valve regurgitation. There is no mitral valve stenosis. Pulmonic Valve The pulmonic valve was not well visualized. Tricuspid Valve Normal tricuspid valve structure and function. There is trace tricuspid valve regurgitation. Moderately elevated right atrial pressure. There is no evidence of pulmonary hypertension. Great Vessels There is mild dilatation of the ascending aorta. The visualized portions of the pulmonary artery and branches are normal. Venous The inferior vena cava is dilated and collapses less than 50% with inspiration. Pericardium/Pleural There is no evidence of pericardial effusion. Prior Study Comparison Changes noted compared to prior study dated: 11/14/2019. Low normal EF, trace MR, moderately dilated LA. Measurements 2D Linear Measurements IVSd: 1.12 0.6-0.9/0.6-1.0 cm LVIDd: 4.63 3.9-5.3/4.2-5.9 cm LVIDd Index: 2.06 2.4-3.2/2.2-3.1 cm/m2 LVIDs: 3.28 2.0-3.6 cm LVPWd: 1.11 0.7-1.1 cm Ao Root: 3.30 2.1-3.5 cm LA Diam: 3.70 2.7-3.8/3.0-4.0 cm LAIDs Index: 1.64 1.5-2.3 cm/m2 LV Mass: 232.52 67-162/88-224 g LV Mass Index: 103.34 43-95/49-115 g/m2 LVOT Diam: 2.00 3.0+(-)1.3 cm Mitral Valve MV Pk E: 1.13 MV PK A: 0.84 MV Decel Time: 271.00 E/A: 1.30 E'Lateral: 6.87 E'Medial: 4.93 E/E' Med: 22.90 E/E' Lat: 16.40 PHT: 79.00 MVA PHT: 2.78 Decel [place]: 4.15 Aortic Valve AoV Pk Vincent: 1.61 AoV Mn Vincent: 1.10 AoV VTI: 0.34 AoV Pk Grad: 10.00 Aov Mn Grad: 6.00 TRISH Cont.VTI: 2.28 LVOT LVOT Pk Vincent: 1.03 LVOT Mn Vincent: 0.70 LVOT VTI: 0.24 LVOT Pk Grad: 4.00 LVOT Mn Grad: 2.00 LVOT Diam: 2.00 LVOT Area: 3.14 Diastolic Function MV Pk E: 1.13 MV Pk A: 0.84 E/A: 1.30 E'Medial: 4.93 E/E' Med: 22.90 E' Laterial: 6.87 E/E' Lat: 16.40 Tricuspid Valve TR Pk Vincent: 1.73 TR Pk Grad: 12.00 RA Press: 8.00 RVSP: 20.00 Great Vessels Aorta Ao Root-2D: 3.30 2.0-3.7 cm Ao Asc: 3.30 2.1-3.4 cm Ao Arch: 3.20 Updated in Other Vendor System with Status of Final Mando Sevilla MD electronically signed on 10/28/2020 8:10:20 PM with status of Final
--- NOTE | 2020-10-28 14:56 | PM.PSYCN ---
History of Present Illness Date of Service: 10/28/2020 Chief Complaint: Afib with RVR Reason for Consult: medication management Requesting physician: Eve Palma Discussed with referring provider: Yes Sources of Information: patient interviewed, chart reviewed and crisis/core team assessment reviewed Additional Sources of Information: This commercial insurance underwriter spoke with pt's OP psychiatrist, Dr. Batsheva Napoles HPI Narrative: Ms. Granados is a 65 year-old woman with hx of afib, hypothyroidism, schizophrenia who was brought to [facility] [place] ED due to palpitation, not taking medications. In ED, pt found to be in atrial flutter w/ HR in 140s, tropinins x 2 elevated thought to be due to atrial flutter with rapid rate. It appears that pt has been refusing all her medications, including psychiatric ones. Per pt's OP psychiatrist, Dr. Hernández pt was supposed to get INvega Sustenna 234 mg IM q 4 weeks, on 10/09/2020 but refused. Pt also on oral risperidone as Invega SUstenna alone has not controlled symptoms adequately. Today, pt is in bed. She is slightly guarded but cooperative. She reports hearing voices at times and anxious about not being able to trust others. She does not disclose much information about paranoid delusions but has been noted during this admission per nursing to be guarded and suspicious when asked questions. She reports she has not taken Invega Sustenna but is in agreement to get it now. She reports sleeping and eating well. She denies SI/HI. She also asks for risperidone. She reports she is not sure about why she is in the hospital. She does not appear to fully understand her medical condition and need for treatment. She reports I was feeling good, so I stopped my medications, but I will take them now. Per nursing, she has been questioning need of medical medications. Past Psychiatric History: Inpatient: multiple inpast, last one about 2 years ago OP: Dr. Hernández at [facility] Past medication trials: risperidone, invega sustenna. Medical Evaluation Reviewed: Yes Review of Systems Cardiovascular: Reports as per HPI and Denies dyspnea Respiratory: Denies dyspnea [facility] Medical History (Updated 10/28/20 @ 15:16 by Sherice Richey) Afib Asthma HTN (hypertension) Hypothyroid Pacemaker Pneumonia due to COVID-19 virus Schizophrenia Surgical History Hx of kidney removal Hx of removal of ovary Diagnostics Vital Signs (24Hr): Vital Signs - 24 hr 10/27/20 15:22 10/27/20 18:56 10/27/20 20:54 Temperature 97.9 F 98.5 F Pulse Rate 59 58 60 Respiratory Rate 18 18 Blood Pressure 140/65 H 102/55 L 102/55 L Pulse Oximetry 90 L 93 10/27/20 23:08 10/28/20 04:00 10/28/20 08:00 Temperature 99.1 F 97.7 F 97.7 F Pulse Rate 60 60 60 Respiratory Rate 18 18 18 Blood Pressure 124/60 135/67 135/75 Pulse Oximetry 93 92 94 10/28/20 09:16 10/28/20 11:31 Temperature 98.2 F Pulse Rate 60 60 Respiratory Rate 20 Blood Pressure 135/75 120/61 Pulse Oximetry 95 Body Mass Index 50.5 Labs Results: 10/26/20 06:14 10/26/20 06:14 Imaging Radiology Impressions: ITS Impressions Chest X-Ray 10/25/20 10:50 IMPRESSION: Likely bibasilar atelectasis. No acute consolidation seen. Mental Status Exam Mental Status Exam Narrative: Appearance: wearing hospital gown, fair hygiene, in NAD Behavior: guarded but mostly cooperative Psychomotor: no agitation or retardation noted Speech: clear, delayed rate/rhythm/volume, minimally spontaneous TP: linear TC: somewhat guarded and suspicious Mood: anxious Affect:congruent AH/VH:+AH Delusions:no overt paranoid delusions but pt guarded Insight/judgment:poor x 2. Memory/cog:alert, oriented x 3 but appears with underlying cognitive impairements Medications Medications Current Medications Generic Name Dose Route Start Last Admin Trade Name Freq PRN Reason Stop Dose Admin Acetaminophen 650 mg 10/25/20 14:32 Acetaminophen 325 Mg Tablet PO Q6H PRN Pain, Mild (Pain Scale 1-3) Albuterol Sulfate 2 puff 10/25/20 14:32 Albuterol Sulfate 90 Mcg 8 Gm Inhaler INHALE Q4H PRN dyspnea Atorvastatin Calcium 80 mg 10/25/20 21:00 10/27/20 20:52 Atorvastatin Calcium 80 Mg Tablet PO 80 mg BEDTIME ANTONETTE Administration Benztropine Mesylate 1 mg 10/25/20 21:00 10/28/20 09:15 Benztropine Mesylate 1 Mg Tablet PO 1 mg BID ANTONETTE Administration Diltiazem HCl 120 mg 10/27/20 11:05 10/28/20 09:16 Diltiazem Hcl Cd 120 Mg Cap.Er.Deg PO 120 mg DAILY ANTONETTE Administration Protocol Docusate Sodium 100 mg 10/25/20 14:32 Docusate Sodium 100 Mg Capsule PO DAILY PRN Constipation Fluticasone Propionate 1 spray 10/25/20 21:00 10/28/20 09:16 Fluticasone Propionate Nasal 16 Gm [place] NOSTRIL-B Not Given BID ANTONETTE Levothyroxine Sodium 112 mcg 10/26/20 09:00 10/28/20 09:15 Levothyroxine Sodium 112 Mcg Tablet PO 112 mcg DAILY ANTONETTE Administration Loratadine 10 mg 10/26/20 09:00 10/28/20 09:15 Loratadine 10 Mg Tablet PO 10 mg DAILY ANTONETTE Administration Magnesium Oxide 400 mg 10/26/20 09:00 10/28/20 09:16 Magnesium Oxide 400 Mg Tablet PO 400 mg DAILY ANTONETTE Administration Melatonin 6 mg 10/25/20 14:41 10/26/20 23:13 Melatonin 3 Mg Tablet PO 6 mg BEDTIME PRN Administration insomnia Metoprolol Tartrate 50 mg 10/27/20 11:00 10/28/20 09:16 Metoprolol Tartrate 50 Mg Tablet PO 50 mg BID ANTONETTE Administration Protocol Ondansetron HCl 4 mg 10/25/20 14:32 Ondansetron Hcl 4 Mg/2 Ml Vial IVPUSH Q8H PRN Nausea and Vomiting Pharmacy Consult 1 each 10/25/20 10:22 Consult Rx Perform Med Rec MISCELLANE ONCE PRN Consult order Risperidone 1 mg 10/25/20 14:32 10/26/20 23:13 Risperidone 0.5 Mg Tablet PO 1 mg BEDTIME PRN Administration anxiety Risperidone 1 mg 10/25/20 21:00 10/28/20 09:15 Risperidone 1 Mg Tablet PO 1 mg BID ANTONETTE Administration Rivaroxaban 20 mg 10/25/20 21:00 10/27/20 20:52 Rivaroxaban 20 Mg Tablet PO 20 mg BEDTIME ANTONETTE Administration Sertraline HCl 50 mg 10/26/20 09:00 10/28/20 09:16 Sertraline Hcl 50 Mg Tablet PO 50 mg DAILY ANTONETTE Administration Sertraline HCl 100 mg 10/26/20 09:00 10/28/20 09:15 Sertraline Hcl 100 Mg Tablet PO 100 mg DAILY ANTONETTE Administration Sodium Chloride 3 ml 10/25/20 16:00 10/28/20 09:15 0.9 % Sodium Chloride Flush 3 Ml Syringe IVFLUSH 3 ml QSHIFT ANTONETTE Administration Allergies Allergies Allergy/AdvReac Type Severity Reaction Status Date / Time No Known Allergies Allergy Verified 07/30/20 11:27 Assessment & Plan Assessment & Plan (1) Schizophrenia, paranoid: Status: Acute Code(s): F20.0 - Paranoid schizophrenia Recommendations: MEDICATIONS: 1. Resume Invega Sustenna- since pt has missed maintenance dose for less than 6 weeks, Pt can be restarted on Invega Sustenna 234mg IM q4w. 2. Increase risperidone to 1mg po daily and 2 mg po qhs. 3. Continue cogentin 1mg po BID 4. Start ativan 0.5mg po q4hrs prn for anxiety, agitation DISPOSITION 1. Pt does not appear to be in acute need for psychiatric stabilization requiring inpatient level of care. Pt con resume OP psychiatric care at home. 2. Pt may need more assistance at home and her ability to live independently may be impaired. Unclear of pt has HCP. Greater than 50% of the session was spent on counseling and/or coordination of care
--- NOTE | 2020-10-28 16:07 | MHC.CM.PN ---
CM attempted to complete a HCP with Patient. Ultimately, Patient decided she would like to talk to her Daughter/Aviva before completing the HCP. CM left HCP form with Patient for her review.
[2020-10-28] MEDS: Paliperidone Palmitate 234 MG/1.5 ML SYRINGE IM (19:18)
[2020-10-28] MEDS: Rivaroxaban 20 MG TABLET PO (20:12)
[2020-10-28] MEDS: Atorvastatin Calcium 80 MG TABLET PO (20:13)
[2020-10-28] MEDS: risperiDONE 2 MG TABLET PO (20:13)
[2020-10-29] VITALS: BP 134/65; PULSE 60; RESP 16; TEMP 36.8; O2SAT 93
[2020-10-29 04:00] VITALS: BP 134/60; PULSE 65; RESP 16; TEMP 37.1; O2SAT 93
[2020-10-29 06:52] VITALS: BP 152/76; PULSE 62; RESP 20; TEMP 36.1; O2SAT 95
[2020-10-29] MEDS: 0.9 % Sodium Chloride Flush 3 ML SYRINGE IVFLUSH (09:23)
[2020-10-29 09:24] VITALS: BP 152/76; PULSE 62
[2020-10-29] MEDS: Loratadine 10 MG TABLET PO (09:24)
[2020-10-29] MEDS: dilTIAZem HCL CD 120 MG CAP.ER.DEG PO (09:24)
[2020-10-29] MEDS: Benztropine Mesylate 1 MG TABLET PO (09:24)
[2020-10-29] MEDS: Sertraline HCL 50 MG TABLET PO (09:24)
[2020-10-29] MEDS: Metoprolol Tartrate 50 MG TABLET PO (09:24)
[2020-10-29] MEDS: Sertraline HCL 100 MG TABLET PO (09:24)
[2020-10-29] MEDS: risperiDONE 1 MG TABLET PO (09:24)
[2020-10-29] MEDS: Magnesium Oxide 400 MG TABLET PO (09:25)
[2020-10-29] MEDS: Levothyroxine Sodium 112 MCG TABLET PO (09:25)
[2020-10-29 11:00] VITALS: BP 134/93; PULSE 60; RESP 18; TEMP 36.6; O2SAT 96
--- NOTE | 2020-10-29 11:08 | MHC.CM.PN ---
Per MD, Patient will be medically cleared for dc to home today, with [facility]. Patient was active with [facility], who has been notified of today's dc. Second IMM addressed with Patient and the original has been given to her and a copy has been placed on the chart. Patient will return home [facility] today at 1:30 PM; Patient is aware of and in agreement with the dc plan.
--- NOTE | 2020-10-29 11:25 | PM.DS ---
DS: Providers Provider Date of Service: 10/29/20 Date of admission: 10/25/20 14:19 Primary care physician: Unknown Physician Consults: 10/25/20 13:08 Consult to Psychiatry Stat Consulting Provider: Lolis Lala Reason for consultation: medication noncomliance 10/25/20 14:19 Consult to Cardiology Routine Consulting Provider: Reno Sotomayor Reason for consultation: afib rvr Has provider been notified: No DS: Diagnosis Discharge Diagnosis (1) Schizophrenia, paranoid: Status: Acute (2) Atrial flutter with rapid ventricular response: Status: Acute (3) Atrial fib/flutter, transient: Status: Acute (4) Schizophrenia: Status: Acute DS: Medications Discharge Medications Home Medications: Home Medications Medication Instructions Recorded Confirmed Invega Sustenna 234 mg IM Q4W 07/30/20 10/25/20 Xarelto 20 mg PO BEDTIME 07/30/20 10/25/20 albuterol sulfate [ProAir HFA] 2 puff PO Q4H PRN 07/30/20 10/25/20 atorvastatin 80 mg PO BEDTIME 07/30/20 10/25/20 benztropine 1 mg PO BID 07/30/20 10/25/20 levothyroxine 112 mcg PO DAILY 07/30/20 10/25/20 loratadine 10 mg PO DAILY 07/30/20 10/25/20 magnesium oxide 400 mg PO DAILY 07/30/20 10/25/20 melatonin 1 - 2 tab PO BEDTIME PRN 07/30/20 10/25/20 potassium chloride 20 meq PO DAILY 07/30/20 10/25/20 sertraline 100 mg PO DAILY 07/30/20 10/25/20 fluticasone propionate 1 spray INTRANASAL BID 10/25/20 10/25/20 sertraline 50 mg PO DAILY 10/25/20 10/25/20 tizanidine 4 mg PO BEDTIME PRN 10/25/20 10/25/20 Previous Rx's Medication Instructions Recorded diltiazem HCl [Cardizem CD] 120 mg PO DAILY #30 cap 10/29/20 metoprolol tartrate 50 mg PO BID #60 tab 10/29/20 risperidone 1 mg PO DAILY #30 tab 10/29/20 risperidone 2 mg PO BEDTIME #30 tab 10/29/20 DS: Summary Hospital Course Hospital Course: Admission note HPI This is a 65-year-old female with history of atrial fibrillation. She was sent to the emergency department by [facility] due to medication noncompliance. [facility] saw her today and noticed that she had not been taking her medication in some time. They called 911 and EMS found her to be tachycardic. In the emergency department she was noted to be in atrial flutter with heart rate in the 140s. She was given a dose of IV Lopressor, IV Cardizem and then started on Cardizem drip. Lab work was unremarkable with exception of a troponin of 22.5, repeat pending. She reports palpitations. She denies shortness of breath. She does not know why she has not been taking her medication. Hospital course The patient was admitted to the hospital for treatment of atrial fibrillation/flutter with RVR. She was evaluated by Cardiology and treated with IV Cardizem drip and oral medications of metoprolol with good response. Cardiology recommended discontinue Multaq and to continue with metoprolol 50 mg b.i.d. and Cardizem 120 mg daily. To continue Xarelto at time of discharge. Echo was done showing EF of 50-55% with diastolic dysfunction. She was evaluated by psychiatry team for schizophrenia with reported noncompliance with medications. The patient reported that she will continue to take her home medications. Changes were made by Psychiatry team and her risperidone was increased and was advised to resume Invega Sustenna with dose of 234 mg IM q.4 weeks. To follow-up with psychiatry team as outpatient as she has no need for inpatient care at this point. And HCP form was signed as she appointed her daughters. Time Spent with Patient Time attestation: Total time spent providing and/or coordinating discharge services: Discharge coordination time: Greater than 30 minutes Physical Exam Vital Signs: Vital Signs: Last Vital Signs Temp 98 F 10/29/20 11:00 Pulse 60 10/29/20 11:00 Resp 18 10/29/20 11:00 BP 134/93 H 10/29/20 11:00 Pulse Ox 96 10/29/20 11:00 Body Mass Index 50.5 Const: Other: Constitutional : Alert, oriented, not in distress Neck : Normal inspection, Supple Cardiovascular : RRR, S1 S2, no lower extremity edema Respiratory : Good bilateral air entry, no crackles, wheezes or rhonchi Gastrointestinal: soft, lax, Normal bowel sounds, Non tender Skin : Warm/Dry, No rash Neurological : Alert & oriented x3, No focal deficit Discharge Plan Discharge Patient Disposition: Home, Self-Care Referrals: [facility] [Outside] Physician,Unknown [Primary Care Provider] - Discharge Medications: New diltiazem HCl [Cardizem CD] 120 mg Capsule,Extended Release 24hr 120 mg PO DAILY Qty: 30 RF: 1 metoprolol tartrate 50 mg Tablet 50 mg PO BID Qty: 60 RF: 1 risperidone 1 mg Tablet 1 mg PO DAILY Qty: 30 RF: 1 risperidone 2 mg Tablet 2 mg PO BEDTIME Qty: 30 RF: 1 Continued atorvastatin 80 mg tablet 80 mg PO BEDTIME RF: 0 sertraline 100 mg tablet 100 mg PO DAILY RF: 0 potassium chloride 20 mEq packet 20 meq PO DAILY RF: 0 magnesium oxide 400 mg (241.3 mg magnesium) tablet 400 mg PO DAILY RF: 0 benztropine 1 mg tablet 1 mg PO BID RF: 0 albuterol sulfate [ProAir HFA] 90 mcg/actuation HFA aerosol inhaler 2 puff PO Q4H PRN (Reason: dyspnea) RF: 0 loratadine 10 mg tablet 10 mg PO DAILY RF: 0 levothyroxine 112 mcg tablet 112 mcg PO DAILY RF: 0 melatonin 5 mg tablet 1 - 2 tab PO BEDTIME PRN (Reason: insomnia) RF: 0 Invega Sustenna 234 mg/1.5 mL syringe 234 mg IM Q4W RF: 0 Xarelto 20 mg tablet 20 mg PO BEDTIME RF: 0 sertraline 50 mg Tablet 50 mg PO DAILY RF: 0 tizanidine 4 mg Capsule 4 mg PO BEDTIME PRN (Reason: Muscle Spasm) RF: 0 fluticasone propionate 50 mcg/actuation [place],Suspension 1 spray INTRANASAL BID RF: 0 Discontinued risperidone 1 mg tablet 1 tab PO BID RF: 0 risperidone 0.5 mg tablet 1 mg PO BEDTIME PRN (Reason: anxiety) RF: 0 Multaq 400 mg tablet 400 mg PO BID RF: 0 Discharge Orders: Discharge Order (Routine); Ordered 10/29/20 Ordered By: Jessica Romero Diet: advance to usual diet Activity on Discharge: As tolerated Stand Alone Forms: Patient Portal Discharge page Care Plan Goals: Read below Health Concerns: Read below Plan of Treatment: You were admitted to the hospital for rapid irregular heart rhythm called atrial fibrillation which was controlled by oral and IV medications. You were evaluated by Cardiology team and some changes to your medications were done. Your heart rate improved back to regular. You were evaluated by psychiatry team and changes have been made to your home medications. Discontinue Multaq Risperidone does have been increased Start metoprolol and Cardizem for heart rate control
== END 2020-10-29 14:33 | disposition home or self-care (01) | DRG 309 ==
LOC: HO.ED 13:10 → HO.EDOVER 14:36 → HO.IMC 15:12
PROVIDERS: Physician Assistant; Physician Assistant Medical; Admitting Provider Hospitalist; Emergency Provider Emergency Medicine; PCP Internal Medicine; Visit Provider Student in an Organized Health Care Education/Training Program
DX: I48.91 Unspecified atrial fibrillation (principal); Z68.43 Body mass index [BMI] 50.0-59.9, adult; F20.0 Paranoid schizophrenia; E03.9 Hypothyroidism, unspecified; Z95.0 Presence of cardiac pacemaker; E66.01 Morbid (severe) obesity due to excess calories; E78.5 Hyperlipidemia, unspecified; Z91.14 Patient's other noncompliance with medication regimen; Z86.16 Personal history of COVID-19; Z20.822 Contact with and (suspected) exposure to COVID-19; Z79.01 Long term (current) use of anticoagulants; Z79.52 Long term (current) use of systemic steroids; Z79.890 Hormone replacement therapy; Z79.899 Other long term (current) drug therapy
CPT/HCPCS: 36415; 71045; 80048; 80076; 83735; 83880; 84439; 84443; 84484; 85025; 85610; 85730; 87635; 93005; 93306; 96361; 96374; 96375; 99285; J1160; J2060; J2426

== ENCOUNTER 2020-12-23 10:42 | Emergency (ER) | payer MEDICARE, MEDICAID, SELFPAY ==
--- NOTE | ~2020-12-23 | XR_ITS ---
EXAMINATION: XR CHEST CLINICAL INFORMATION: Palpitations COMPARISON: Previous chest x-ray October 2020 TECHNIQUE: Frontal view of the chest was obtained. FINDINGS: The cardiac silhouette does not appear enlarged. There is a left subclavian dual chamber pacemaker that appears unchanged. There are new radiopaque densities that project over the heart, question representing something on the chest wall. Clinical correlation for history of interval surgical procedure recommended. The lungs are clear. There is no pleural effusion or pneumothorax. There are degenerative changes of the spine. XR/XR chest 1V IMPRESSION: No evidence for acute disease in the chest. New radiopaque densities project over the heart. This may be related to something on the patient's chest wall. Clinical correlation to see if patient has been interval surgical procedure.
[2020-12-23 11:14] VITALS: BP 144/80; BP 158/64; PULSE 60; PULSE 86; RESP 18; TEMP 36.8; O2SAT 100; BMI 52.4
--- NOTE | 2020-12-23 11:17 | ECG_ITS ---
Test Reason : ASTHMA Blood Pressure : / mmHG Vent. Rate : 060 BPM Atrial Rate : 060 BPM P-R Int : 186 ms QRS Dur : 088 ms QT Int : 434 ms P-R-T Axes : 054 -26 039 degrees QTc Int : 434 ms Atrial-paced rhythm Abnormal ECG When compared with ECG of 25-OCT-2020 12:24, Electronic atrial pacemaker has replaced Atrial flutter Vent. rate has decreased BY 34 BPM Referred By: Eve Palma Electronically Signed By:LISSETTE EDMONDS
--- NOTE | 2020-12-23 11:34 | ED_ITS ---
HPI - Chest Pain General Chief Complaint: Chest Pain Stated Complaint: chest pain Time Seen by Provider: 12/23/20 11:03 Source: patient and EMS Mode of arrival: EMS History of Present Illness HPI narrative: 65-year-old female with a past medical history of asthma, hypertension, hypothyroid, pacemaker, hypoxic respiratory failure due to COVID pneumonia, schizophrenia, AFib with RVR on Xarelto, BIBA c/o palpitations, substernal chest tightness and mild SOB since last night. Admits was given DuoNeb by EMS and is asymptomatic now. Denies fever, chills, cough, abdominal pain, nausea/vomiting, LE edema, calf pain, recent travel, COVID-19 exposure Related Data Home Medications Medication Instructions Recorded Confirmed Invega Sustenna 234 mg IM Q4W 07/30/20 10/25/20 Xarelto 20 mg PO BEDTIME 07/30/20 10/25/20 albuterol sulfate [ProAir HFA] 2 puff PO Q4H PRN 07/30/20 10/25/20 atorvastatin 80 mg PO BEDTIME 07/30/20 10/25/20 benztropine 1 mg PO BID 07/30/20 10/25/20 levothyroxine 112 mcg PO DAILY 07/30/20 10/25/20 loratadine 10 mg PO DAILY 07/30/20 10/25/20 magnesium oxide 400 mg PO DAILY 07/30/20 10/25/20 melatonin 1 - 2 tab PO BEDTIME PRN 07/30/20 10/25/20 potassium chloride 20 meq PO DAILY 07/30/20 10/25/20 sertraline 100 mg PO DAILY 07/30/20 10/25/20 fluticasone propionate 1 spray INTRANASAL BID 10/25/20 10/25/20 sertraline 50 mg PO DAILY 10/25/20 10/25/20 tizanidine 4 mg PO BEDTIME PRN 10/25/20 10/25/20 Previous Rx's Medication Instructions Recorded diltiazem HCl [Cardizem CD] 120 mg PO DAILY #30 cap 10/29/20 metoprolol tartrate 50 mg PO BID #60 tab 10/29/20 risperidone 1 mg PO DAILY #30 tab 10/29/20 risperidone 2 mg PO BEDTIME #30 tab 10/29/20 Allergies Allergy/AdvReac Type Severity Reaction Status Date / Time No Known Allergies Allergy Verified 07/30/20 11:27 Review of Systems Review of Systems: Constitutional: No Fever, No Chills, No Fatigue, No Malaise ENT/Mouth: No Nasal Congestion, No Sinus Pain, No Hoarseness, No sore throat, No Swallowing Difficulty Cardiovascular: + Chest Pain (resolved), + SOB (resolved), No Dyspnea on Exertion, No Edema, + Palpitations (resolved) Respiratory: No Cough, No Sputum, No Dyspnea Gastrointestinal: No Nausea, No Vomiting, No Diarrhea, No Constipation, No Abdominal pain Genitourinary: No Dysuria, No Urinary Frequency, No Hematuria, No Flank Pain Musculoskeletal: No joint pain, No Myalgias Skin: No Skin Lesions, No rash Neuro: No Weakness, No Numbness, No Paresthesias, No Headache Yes all other systems are reviewed and are negative [facility] Past Medical History Attestation statement: The following information was validated with the patient. Medical History (Updated 12/23/20 @ 14:39 by QUINTIN Paulino) Afib Asthma Atrial fib/flutter, transient HTN (hypertension) Hypothyroid Pacemaker Pneumonia due to COVID-19 virus Schizophrenia Schizophrenia Schizophrenia, paranoid Surgical History Hx of kidney removal Hx of removal of ovary Family History Family History Other Heart disease Social History Social History Household Members: None Housing: Apartment Smoking Status: Former smoker Advance Directives: No Advance Directives Information Provided: Yes service: No Current occupational status: disabled Physical Exam Vital Signs: Vital Signs: Last Vital Signs Temp 98 F 12/23/20 12:00 Pulse 60 12/23/20 12:17 Resp 18 12/23/20 12:00 BP 164/74 H 12/23/20 12:17 Pulse Ox 98 12/23/20 12:00 Body Mass Index 52.4 Const: General: cooperative, healthy appearing, comfortable, no acute distress, well developed, alert and awake Orientation/consciousness: patient oriented x3 Limitations: no limitations HENMT: Head: Yes normal to inspection Ears: hearing grossly normal bilate rally General nose exam: Normal external nose present Face and sinus: Yes normal facial exam Eyes: General: appearance normal, both eyes and all related structures EOM: EOMs intact bilaterally Neck: Neck: Yes normal visual inspection and Yes no meningeal signs Chest: Chest palpation & inspection: normal inspection of the chest Resp: Effort & Inspection: normal respiratory effort Auscultation: clear to auscultation bilaterally, no rales, no rhonchi and no wheezes Cardio: Rate: regular rate Heart sounds: S1 normal heart sound present and S2 normal heart sound present GI: Inspection: Yes normal to inspection Palpation (GI): Soft to palpation, nontender, no guarding and not rigid Skin: Rashes: no rashes Wounds: no wounds Neuro: General: patient oriented x3, tone normal and no meningeal signs Gait exam (Neuro): Normal gait present Extrem: General: Yes normal to inspection, Yes no pedal edema and Yes no calf tenderness Course Course Course Narrative: EKG is normal sinus rhythm, atrial paced with a rate of 60. Patient did not take her morning doses of her home medications > will give a.m. meds -labs are unremarkable, troponin negative. XR chest 1V IMPRESSION: No evidence for acute disease in the chest. New radiopaque densities project over the heart. This may be related to something on the patient's chest wall. Clinical correlation to see if patient has been interval surgical procedure >> patient has remained asymptomatic since ED arrival. Results discussed with patient including worrisome signs and symptoms and strict return precautions. Discussed importance of compliance with home medications and follow up with PCP. She verbalized understanding feel safe for discharge home with MDM - Chest Pain MDM Narrative Medical decision making narrative: 65-year-old female with a past medical history of asthma, hypertension, hypothyroid, pacemaker, hypoxic respiratory failure due to COVID pneumonia, schizophrenia, AFib with RVR on Xarelto, BIBA c/o palpitations, substernal chest tightness and mild SOB since last night. Asymptomatic now. On exam VSS, NAD/well-appearing, lungs CTA, no LE edema calf tenderness. Concern for anxiety vs AFib/flutter vs ACS. Unlikely PE/pneumonia Plan: EKG, labs, CXR, home dose of medications Medical Records Data Attestation: I reviewed the patient's medical records. Lab Data Attestation: I reviewed the patient's lab results. Result diagrams: 12/23/20 13:14 12/23/20 13:14 Labs: Lab Results 12/23/20 12/23/20 12/23/20 Range/Units 13:14 13:14 13:14 WBC 6.8 (4.8-10.8) X10*3/uL RBC 4.44 (4.20-5.50) X10*6/uL Hgb 13.0 (12.0-16.0) g/dl Hct 40.4 (37-47) % MCV 91.0 (80-98) fL MCH 29.3 (27.0-33.0) pg MCHC 32.2 (31.0-35.0) g/dl RDW 13.5 (11.0-16.0) % Plt Count 278 (160-400) X10*3/uL MPV 9.1 L (9.4-12.3) fL Immature Gran % (Auto) 0.3 (0.0-0.4) % Neut % (Auto) 58.7 (45-73) % Lymph % (Auto) 30.2 (20-40) % [place] % (Auto) 7.7 (2-11) % Eos % (Auto) 2.8 (0-4) % Baso % (Auto) 0.3 (0-2) % Lymph # (Auto) 2.0 (1.2-4.9) X10*3/uL [place] # (Auto) 0.5 (0.1-1.2) X10*3/uL Eos # (Auto) 0.2 (0.0-0.4) X10*3/uL Baso # (Auto) 0.0 (0.0-0.2) X10*3/uL Abs Immat Gran (auto) 0.02 (0.00-0.03) X10*3/uL Absolute Neuts (auto) 4.0 (2.0-8.3) X10*3/uL Absolute Nucleated RBC 0.000 (0.0-0.012) X10*3/uL Nucleated RBC % (auto) 0.0 (0.0-0.2) /100WBC PT (10.8-13.0) SEC INR (0.9-1.1) APTT (24.1-38.0) SEC Sodium 141 (135-145) mmol/L Potassium 4.2 (3.3-5.1) mmol/L Chloride 105 (96-108) mmol/L Carbon Dioxide 28 (22-29) mmol/L Anion Gap 12 (12-20) BUN 14 (9-16) mg/dL Creatinine 0.72 (0.5-1.4) mg/dL Estim Creat Clear Calc 97.2 Estimated GFR > 60 Random Glucose 83 (60-115) mg/dL Calcium 9.4 D (8.4-10.2) mg/dL Magnesium 1.9 (1.6-2.6) mg/dL Total Bilirubin 0.4 (0.0-1.0) mg/dL Direct Bilirubin < 0.2 (0.0-0.5) mg/dL AST 23 D (5-31) U/L ALT 23 (0-31) U/L Alkaline Phosphatase 116 (39-117) U/L Troponin I High Sens < 3.5 D (<3.5-17.0) ng/L B-Natriuretic Peptide (<100) pg/mL Total Protein 7.5 (6.5-8.0) g/dL Albumin 4.0 (3.5-5.0) g/dL 12/23/20 12/23/20 Range/Units 13:14 13:14 WBC (4.8-10.8) X10*3/uL RBC (4.20-5.50) X10*6/uL Hgb (12.0-16.0) g/dl Hct (37-47) % MCV (80-98) fL MCH (27.0-33.0) pg MCHC (31.0-35.0) g/dl RDW (11.0-16.0) % Plt Count (160-400) X10*3/uL MPV (9.4-12.3) fL Immature Gran % (Auto) (0.0-0.4) % Neut % (Auto) (45-73) % Lymph % (Auto) (20-40) % [place] % (Auto) (2-11) % Eos % (Auto) (0-4) % Baso % (Auto) (0-2) % Lymph # (Auto) (1.2-4.9) X10*3/uL [place] # (Auto) (0.1-1.2) X10*3/uL Eos # (Auto) (0.0-0.4) X10*3/uL Baso # (Auto) (0.0-0.2) X10*3/uL Abs Immat Gran (auto) (0.00-0.03) X10*3/uL Absolute Neuts (auto) (2.0-8.3) X10*3/uL Absolute Nucleated RBC (0.0-0.012) X10*3/uL Nucleated RBC % (auto) (0.0-0.2) /100WBC PT 16.4 H (10.8-13.0) SEC INR 1.4 H (0.9-1.1) APTT 47.4 H (24.1-38.0) SEC Sodium (135-145) mmol/L Potassium (3.3-5.1) mmol/L Chloride (96-108) mmol/L Carbon Dioxide (22-29) mmol/L Anion Gap (12-20) BUN (9-16) mg/dL Creatinine (0.5-1.4) mg/dL Estim Creat Clear Calc Estimated GFR Random Glucose (60-115) mg/dL Calcium (8.4-10.2) mg/dL Magnesium (1.6-2.6) mg/dL Total Bilirubin (0.0-1.0) mg/dL Direct Bilirubin (0.0-0.5) mg/dL AST (5-31) U/L ALT (0-31) U/L Alkaline Phosphatase (39-117) U/L Troponin I High Sens (<3.5-17.0) ng/L B-Natriuretic Peptide 61 (<100) pg/mL Total Protein (6.5-8.0) g/dL Albumin (3.5-5.0) g/dL ECG Data ECG #1: Attestation: I personally reviewed and interpreted this ECG as follows: ECG interpretation date: 12/23/20 ECG interpretation time: 11:25 Interpretation: EKG atrial paced with a rate of 60. Nonischemic/no STEMI. QTC 434 Discharge Plan Discharge Clinical Impression: Heart palpitations Patient Disposition: Home, Self-Care Instructions: Heart Palpitations (ED) Additional Instructions: Your blood work, EKG, and chest x-ray were reassuring today in the ED It is important that he continue taking home prescribed medications If you develop fever, chest pain, shortness of breath, constant or unremitting palpitations please return to the ED, otherwise follow up with her doctor. Prescriptions: No Action atorvastatin 80 mg tablet 80 mg PO BEDTIME RF: 0 sertraline 100 mg tablet 100 mg PO DAILY RF: 0 potassium chloride 20 mEq packet 20 meq PO DAILY RF: 0 magnesium oxide 400 mg (241.3 mg magnesium) tablet 400 mg PO DAILY RF: 0 benztropine 1 mg tablet 1 mg PO BID RF: 0 albuterol sulfate [ProAir HFA] 90 mcg/actuation HFA aerosol inhaler 2 puff PO Q4H PRN (Reason: dyspnea) RF: 0 loratadine 10 mg tablet 10 mg PO DAILY RF: 0 levothyroxine 112 mcg tablet 112 mcg PO DAILY RF: 0 melatonin 5 mg tablet 1 - 2 tab PO BEDTIME PRN (Reason: insomnia) RF: 0 Invega Sustenna 234 mg/1.5 mL syringe 234 mg IM Q4W RF: 0 Xarelto 20 mg tablet 20 mg PO BEDTIME RF: 0 sertraline 50 mg Tablet 50 mg PO DAILY RF: 0 tizanidine 4 mg Capsule 4 mg PO BEDTIME PRN (Reason: Muscle Spasm) RF: 0 fluticasone propionate 50 mcg/actuation [place],Suspension 1 spray INTRANASAL BID RF: 0 diltiazem HCl [Cardizem CD] 120 mg Capsule,Extended Release 24hr 120 mg PO DAILY Qty: 30 RF: 1 metoprolol tartrate 50 mg Tablet 50 mg PO BID Qty: 60 RF: 1 risperidone 1 mg Tablet 1 mg PO DAILY Qty: 30 RF: 1 risperidone 2 mg Tablet 2 mg PO BEDTIME Qty: 30 RF: 1 Referrals: Reno Sotomayor MD [Physician] - 5 days
[2020-12-23 12:00] VITALS: BP 159/56; PULSE 82; RESP 18; TEMP 36.6; O2SAT 98
[2020-12-23 12:15] VITALS: BP 164/74; PULSE 60
[2020-12-23] MEDS: Aspirin Enteric Coated 81 MG TABLET.DR PO (12:15)
[2020-12-23] MEDS: dilTIAZem HCL CD 120 MG CAP.ER.DEG PO (12:15)
[2020-12-23 12:17] VITALS: BP 164/74; PULSE 60
[2020-12-23] MEDS: Metoprolol Tartrate 50 MG TABLET PO (12:17)
--- NOTE | 2020-12-23 12:49 | PC.NURSE ---
phlebotomy called to obtain labs 2 attempts by 2 different staff members, were unable to obtain
[2020-12-23 13:19] LABS: MANUAL DIFF FLAG NO
[2020-12-23 13:28] LABS: Basophils Percent Auto 0.3 % (0-2); Eosinophils Absolute Auto 0.2 X10*3/uL (0.0-0.4); Eosinophils Percent Auto 2.8 % (0-4); Hematocrit 40.4 % (37-47); Imm Gran Abs Auto 0.02 X10*3/uL (0.00-0.03); Imm Gran Pct Auto 0.3 % (0.0-0.4); Lymphocytes Percent Auto 30.2 % (20-40); Mean Corpuscular HGB Conc 32.2 g/dl (31.0-35.0); Mean Corpuscular Hemoglobin 29.3 pg (27.0-33.0); Mean Platelet Volume 9.1 fL (9.4-12.3); Monocytes Absolute Auto 0.5 X10*3/uL (0.1-1.2); Monocytes Percent Auto 7.7 % (2-11); Neutrophils Percent Auto 58.7 % (45-73); Platelet Count 278 X10*3/uL (160-400); Red Blood Count 4.44 X10*6/uL (4.20-5.50); Red Cell Distribution Width 13.5 % (11.0-16.0); White Blood Count 6.8 X10*3/uL (4.8-10.8)
[2020-12-23 13:29] LABS: INTERNATIONAL NORM RATIO 1.4 (0.9-1.1); Prothrombin Time 16.4 SEC (10.8-13.0)
[2020-12-23 13:32] LABS: Partial Thromboplastin Time 47.4 SEC (24.1-38.0)
[2020-12-23 14:01] LABS: Alanine Aminotransferase 23 U/L (0-31); Alkaline Phosphatase 116 U/L (39-117); Anion Gap 12 (12-20); Aspartate Amino Transferase 23 U/L (5-31); Bilirubin Direct < 0.2 mg/dL (0.0-0.5); Bilirubin Total 0.4 mg/dL (0.0-1.0); Blood Urea Nitrogen 14 mg/dL (9-16); Calcium 9.4 mg/dL (8.4-10.2); Carbon Dioxide 28 mmol/L (22-29); Chloride 105 mmol/L (96-108); Creatinine Clr Calc Pharmacy 97.2; Estimated Glomerular Filt Rate > 60; Glucose Random 83 mg/dL (60-115); Magnesium 1.9 mg/dL (1.6-2.6); Potassium 4.2 mmol/L (3.3-5.1); Sodium 141 mmol/L (135-145); Total Protein 7.5 g/dL (6.5-8.0)
[2020-12-23 14:03] LABS: Troponin-I High Sensitivity < 3.5 ng/L (<3.5-17.0)
[2020-12-23 14:04] LABS: B Type Natriuretic Peptide 61 pg/mL (<100)
== END 2020-12-23 15:01 | disposition home or self-care (01) ==
PROVIDERS: Physician Assistant; Emergency Provider Emergency Medicine; PCP Internal Medicine
DX: R00.2 Palpitations (principal); I10 Essential (primary) hypertension; I48.91 Unspecified atrial fibrillation; Z95.0 Presence of cardiac pacemaker; Z86.16 Personal history of COVID-19; Z79.01 Long term (current) use of anticoagulants; Z79.02 Long term (current) use of antithrombotics/antiplatelets; Z79.899 Other long term (current) drug therapy; Z87.891 Personal history of nicotine dependence
CPT/HCPCS: 36415; 71045; 80048; 80076; 83735; 83880; 84484; 85025; 85610; 85730; 93005; 99283; 99284

== ENCOUNTER → 2021-02-11 09:48 | Outpatient (BNVA) | payer MEDICARE, MEDICAID, SELFPAY | PROVIDERS: PCP Internal Medicine; Visit Provider Hospitalist | DX: J18.9 Pneumonia, unspecified organism (principal); I51.89 Other ill-defined heart diseases; G47.33 Obstructive sleep apnea (adult) (pediatric); J44.9 Chronic obstructive pulmonary disease, unspecified | CPT/HCPCS: 99202 ==

== ENCOUNTER 2021-02-20 15:23 | Emergency (ER) | payer MEDICARE, MEDICAID, SELFPAY ==
--- NOTE | ~2021-02-20 | XR_ITS ---
EXAMINATION: XR CHEST CLINICAL INFORMATION: Dizziness COMPARISON: Portable chest December 23, 2020 TECHNIQUE: Frontal portable view of the chest was obtained. 4:40 PM FINDINGS: Pacemaker lead in right atrium and right ventricle. The cardiac and the mediastinal contours are normal. The heart size is normal. No pulmonary vascular congestion. Lungs are normally aerated. There is no pleural effusion or pneumothorax. Multilevel degenerative spondylosis of spine. XR/XR chest 1V IMPRESSION: No acute abnormality the chest.
--- NOTE | ~2021-02-20 | CT_ITS ---
EXAMINATION: CT HEAD WITH/WITHOUT CONTRAST CLINICAL INFORMATION: Dizziness COMPARISON: Previous exam most recent October 2019 TECHNIQUE: Contiguous axial imaging was performed from the skull base to vertex before and after the administration of 80 mL of Omnipaque [address] examination was performed using dose optimization techniques as appropriate, variously including the following: *Automated exposure control *Adjustment of mA and/or kV according to patient size (this includes techniques or standardized protocols for targeted exams where dose is matched to indication/reason for exam; i.e. extremities or head) *Use of iterative reconstruction technique DLP: 1568 mGy-cm FINDINGS: There is no evidence of acute intracranial hemorrhage or territorial infarction. No abnormal mass effect or midline shift is seen. Cruz to white matter differentiation is well preserved. No extra-axial fluid collections are identified. There is no abnormal enhancement. The ventricles are normal in size. There is no abnormal attenuation within the brain parenchyma. The osseous structures and soft tissues are normal. The mastoid air cells and visualized portions of the paranasal sinuses are well aerated. CT/CT head/brain wo/w con IMPRESSION: Unremarkable exam.
[2021-02-20 15:37] VITALS: BP 160/73; PULSE 60; RESP 16; TEMP 36.6; O2SAT 96; BMI 49.2
[2021-02-20 16:23] VITALS: BP 151/76; PULSE 60; RESP 18; O2SAT 93
--- NOTE | 2021-02-20 16:32 | ECG_ITS ---
Test Reason : DIZZINESS Blood Pressure : / mmHG Vent. Rate : 060 BPM Atrial Rate : 060 BPM P-R Int : 188 ms QRS Dur : 088 ms QT Int : 446 ms P-R-T Axes : 057 -29 050 degrees QTc Int : 446 ms Atrial-paced rhythm Abnormal ECG When compared with ECG of 23-DEC-2020 11:25, No significant change was found Referred By: Chery Weber Electronically Signed By:MIRNA YOUNG MD
--- NOTE | 2021-02-20 16:38 | ED.DIZZY ---
HPI - Dizziness General Chief Complaint: Dizziness Stated Complaint: EXERTIONAL WEAKNESS W/SOB X'S 1 DAY Time Seen by Provider: 02/20/21 16:25 Source: patient Mode of arrival: EMS Limitations: no limitations History of Present Illness HPI Narrative: Patient is a 65-year-old female with a past medical history of asthma COPD overlap syndrome, AFib with a ppm, diastolic dysfunction and MARGOTH who presents with 2 days of dizziness. Patient states it is worse when she changes position. She also states when she was in the shower today, everything went black, she did not lose consciousness or fall, she states her vision returned several seconds later but it made her very nervous so she came to the emergency department. She states she is taking all of her normal daily medications as usual. She also has had 2 days of very watery diarrhea but denies any recent antibiotic use. She denies fevers chills nausea vomiting chest pain or shortness of breath. Related Data Home Medications Medication Instructions Recorded Confirmed Invega Sustenna 234 mg IM Q4W 07/30/20 02/11/21 Xarelto 20 mg PO BEDTIME 07/30/20 02/11/21 albuterol sulfate [ProAir HFA] 2 puff PO Q4H PRN 07/30/20 02/11/21 atorvastatin 80 mg PO BEDTIME 07/30/20 02/11/21 benztropine 1 mg PO BID 07/30/20 02/11/21 levothyroxine 112 mcg PO DAILY 07/30/20 02/11/21 loratadine 10 mg PO DAILY 07/30/20 02/11/21 magnesium oxide 400 mg PO DAILY 07/30/20 02/11/21 melatonin 1 - 2 tab PO BEDTIME PRN 07/30/20 02/11/21 potassium chloride 20 meq PO DAILY 07/30/20 02/11/21 sertraline 100 mg PO DAILY 07/30/20 02/11/21 fluticasone propionate 1 spray INTRANASAL BID 10/25/20 02/11/21 sertraline 50 mg PO DAILY 10/25/20 02/11/21 tizanidine 4 mg PO BEDTIME PRN 10/25/20 02/11/21 metoprolol tartrate 100 mg tablet 100 mg PO BID 02/11/21 02/11/21 Previous Rx's Medication Instructions Recorded diltiazem HCl [Cardizem CD] 120 mg PO DAILY #30 cap 10/29/20 metoprolol tartrate 50 mg PO BID #60 tab 10/29/20 risperidone 1 mg PO DAILY #30 tab 10/29/20 risperidone 2 mg PO BEDTIME #30 tab 10/29/20 umeclidinium 62.5 mcg-vilanterol 1 inh INHALATION DAILY #60 ea 02/11/21 25 mcg/actuation powdr for inhalation amoxicillin-pot clavulanate 1 tab PO Q12H #14 tab 02/20/21 [Augmentin] meclizine 12.5 mg PO BID PRN #10 tab 02/20/21 Allergies Allergy/AdvReac Type Severity Reaction Status Date / Time No Known Allergies Allergy Verified 02/11/21 21:57 Review of Systems Review of Systems: Yes all other systems are reviewed and are negative Neurologic: Denies Abnormal speech present [facility] Past Medical History Medical History Afib Asthma Asthma-COPD overlap syndrome Atrial fib/flutter, transient Diastolic dysfunction HTN (hypertension) Hypothyroid Pacemaker Pneumonia due to COVID-19 virus Pneumonitis Schizophrenia Schizophrenia Schizophrenia, paranoid Surgical History Hx of kidney removal Hx of removal of ovary Family History Family History Other Heart disease Social History Social History Household Members: None Housing: Apartment Do you presently have visiting nurse or other home services: Yes Patient Tobacco Use Status: Former Tobacco user Tobacco use type: Cigarette Years Smoked: 10 years Advance Directives: No Advance Directives Information Provided: Yes service: No Current occupational status: disabled Physical Exam Vital Signs: Vital Signs: Last Vital Signs Temp 98 F 02/20/21 15:37 Pulse 61 02/20/21 20:11 Resp 16 02/20/21 20:11 BP 140/29 H 02/20/21 20:11 Pulse Ox 93 02/20/21 20:11 Body Mass Index 49.2 Const: General: cooperative, healthy appearing, comfortable and no acute distress Nutritional Appearance: obese Orientation/consciousness: patient oriented x3 HENMT: Head: Yes normal to inspection, Yes No palpable skull fracture present, Yes normocephalic, Yes atraumatic and No abrasion Ears: hearing grossly normal bilaterally, external ears normal, TM normal on the right, TM normal on the left, EAC's normal (right side) and Abnormal EAC present erythema General nose exam: Normal external nose present Face and sinus: Yes normal facial exam and Yes face symmetric Mouth: Normal oral and palatal mucosa present and tongue normal Teeth and gingiva: edentulous Throat: Yes tonsils normal, Yes uvula midline, Yes posterior oropharynx abnormal ( Slightly erythematous) and No cobblestoning Eyes: General: appearance normal, both eyes and all related structures Visual Dorman: normal visual dorman by confrontation Alignment and Position: alignment normal Eyelids: Yes eyelids normal Conjunctivae: conjunctivae normal Sclerae: sclerae normal Corneas: corneas normal Pupils: Equal, round and reactive pupils present EOM: EOMs intact bilaterally Neck: Neck: Yes normal visual inspection, Yes full ROM, Yes no lymphadenopathy, Yes no meningeal signs, Yes trachea midline and Yes supple Resp: Effort & Inspection: normal respiratory effort and able to speak in complete sentences Auscultation: clear to auscultation bilaterally Cardio: Rate: regular rate Rhythm: regular rhythm Heart sounds: normal S1 and S2 Skin: General skin exam: no rashes or lesions noted Neuro: General: patient oriented x3, no meningeal signs and CN's II-XI intact bilaterally Cranial nerves: Yes Equal, round and reactive pupils present Cognition (Neuro): normal cognition Speech: No Abnormal speech present Motor exam (neuro): Pronator motor function not present Course Course Course Narrative: Patient is a 65-year-old female with a past medical history of asthma COPD overlap syndrome, AFib with a ppm, diastolic dysfunction and MARGOTH who presents with 2 days of dizziness, worse with positional changes and diarrhea. will get labs, troponin, orthostatics, EKG, give fluids. Echocardiogram -2019-LVEF 60-65%; moderate diastolic dysfunction; mildly dilated left atrium; [id number] mitral regurgitation Reevaluation(s) Reevaluation #1: EKG shows no ST elevation or T-wave changes or acute changes. Reevaluation #2: Labs all within normal limits, ESR indeterminate but patient does not have temporal artery tenderness, orthostatics negative, discussed with Dr. Wright, will get head CT Time: 19:11 Reevaluation #3: Head CT negative, patient's dizziness due to left ear infection, will give meclizine and Augmentin 1st dose in ED. Patient states she feels safe going home and ambulating as she has no problems ambulating. She does have a nurse that comes in 3 days a week to give her medications. She also has a daughter who is local [facility] whom she can check in with. MDM - Dizziness Lab Data Result diagrams: 02/20/21 18:02 02/20/21 18:02 Labs: Lab Results 02/20/21 02/20/21 02/20/21 Range/Units 17:42 18:02 18:02 WBC 8.5 (4.8-10.8) X10*3/uL RBC 4.14 L (4.20-5.50) X10*6/uL Hgb 12.4 (12.0-16.0) g/dl Hct 36.8 L (37-47) % MCV 88.9 (80-98) fL MCH 30.0 (27.0-33.0) pg MCHC 33.7 (31.0-35.0) g/dl RDW 14.3 (11.0-16.0) % Plt Count 302 (160-400) X10*3/uL MPV 8.7 L (9.4-12.3) fL Immature Gran % (Auto) 0.4 (0.0-0.4) % Neut % (Auto) 58.2 (45-73) % Lymph % (Auto) 29.8 (20-40) % [place] % (Auto) 7.9 (2-11) % Eos % (Auto) 3.5 (0-4) % Baso % (Auto) 0.2 (0-2) % Lymph # (Auto) 2.5 (1.2-4.9) X10*3/uL [place] # (Auto) 0.7 (0.1-1.2) X10*3/uL Eos # (Auto) 0.3 (0.0-0.4) X10*3/uL Baso # (Auto) 0.0 (0.0-0.2) X10*3/uL Abs Immat Gran (auto) 0.03 (0.00-0.03) X10*3/uL Absolute Neuts (auto) 5.0 (2.0-8.3) X10*3/uL Absolute Nucleated RBC 0.000 (0.0-0.012) X10*3/uL Nucleated RBC % (auto) 0.0 (0.0-0.2) /100WBC ESR 33 H (0-20) MM/HR PT (10.8-13.0) SEC INR (0.9-1.1) APTT (24.1-38.0) SEC Sodium (135-145) mmol/L Potassium (3.3-5.1) mmol/L Chloride (96-108) mmol/L Carbon Dioxide (22-29) mmol/L Anion Gap (12-20) BUN (9-16) mg/dL Creatinine (0.5-1.4) mg/dL Estim Creat Clear Calc Estimated GFR Random Glucose (60-115) mg/dL Calcium (8.4-10.2) mg/dL Total Bilirubin (0.0-1.0) mg/dL AST (5-31) U/L ALT (0-31) U/L Alkaline Phosphatase (39-117) U/L Troponin I High Sens (<3.5-17.0) ng/L Total Protein (6.5-8.0) g/dL Albumin (3.5-5.0) g/dL Urine Color COLORLESS Urine Appearance CLEAR Urine pH 6.0 (5.0-8.0) Ur Specific [place] <= 1.005 (1.005-1.025) Urine Protein NEG (NEG-TRACE) MG/DL Urine Glucose (UA) NEG (NEG) MG/DL Urine Ketones NEG (NEG) MG/DL Urine Blood NEG (NEG) Urine Nitrite NEG (NEG) Ur Leukocyte Esterase NEG (NEG) 02/20/21 02/20/21 02/20/21 Range/Units 18:02 18:02 18:02 WBC (4.8-10.8) X10*3/uL RBC (4.20-5.50) X10*6/uL Hgb (12.0-16.0) g/dl Hct (37-47) % MCV (80-98) fL MCH (27.0-33.0) pg MCHC (31.0-35.0) g/dl RDW (11.0-16.0) % Plt Count (160-400) X10*3/uL MPV (9.4-12.3) fL Immature Gran % (Auto) (0.0-0.4) % Neut % (Auto) (45-73) % Lymph % (Auto) (20-40) % [place] % (Auto) (2-11) % Eos % (Auto) (0-4) % Baso % (Auto) (0-2) % Lymph # (Auto) (1.2-4.9) X10*3/uL [place] # (Auto) (0.1-1.2) X10*3/uL Eos # (Auto) (0.0-0.4) X10*3/uL Baso # (Auto) (0.0-0.2) X10*3/uL Abs Immat Gran (auto) (0.00-0.03) X10*3/uL Absolute Neuts (auto) (2.0-8.3) X10*3/uL Absolute Nucleated RBC (0.0-0.012) X10*3/uL Nucleated RBC % (auto) (0.0-0.2) /100WBC ESR (0-20) MM/HR PT 15.1 H (10.8-13.0) SEC INR 1.3 H (0.9-1.1) APTT 41.8 H (24.1-38.0) SEC Sodium 138 (135-145) mmol/L Potassium 3.9 (3.3-5.1) mmol/L Chloride 106 (96-108) mmol/L Carbon Dioxide 22 (22-29) mmol/L Anion Gap 14 (12-20) BUN 11 (9-16) mg/dL Creatinine 0.82 (0.5-1.4) mg/dL Estim Creat Clear Calc 88.4 Estimated GFR > 60 Random Glucose 86 (60-115) mg/dL Calcium 8.9 (8.4-10.2) mg/dL Total Bilirubin 0.4 (0.0-1.0) mg/dL AST 22 (5-31) U/L ALT 21 (0-31) U/L Alkaline Phosphatase 115 (39-117) U/L Troponin I High Sens < 3.5 (<3.5-17.0) ng/L Total Protein 7.2 (6.5-8.0) g/dL Albumin 3.8 (3.5-5.0) g/dL Urine Color Urine Appearance Urine pH (5.0-8.0) Ur Specific [place] (1.005-1.025) Urine Protein (NEG-TRACE) MG/DL Urine Glucose (UA) (NEG) MG/DL Urine Ketones (NEG) MG/DL Urine Blood (NEG) Urine Nitrite (NEG) Ur Leukocyte Esterase (NEG) Imaging Data CT scan - head: Attestation: I personally reviewed and interpreted this imaging study as follows: Radiologist's impression: [address] [id number] Scan ReportSigned Patient: Veronica Granados#: [id number]: 6Acct:[id number]/Sex: 65 / FADM Date: 02/20/21Loc: [place] Dr: Ordering Physician: Chery Weber PA-C Date of Service: 02/20/21 Procedure(s): CT head/brain wo/w con Accession Number(s): [id number] cc: Chery Weber PA-C~ EXAMINATION: CT HEAD WITH/WITHOUT CONTRAST CLINICAL INFORMATION: Dizziness COMPARISON: Previous exam most recent October 2019 TECHNIQUE: Contiguous axial imaging was performed from the skull base to vertex before and after the administration of 80 mL of Omnipaque [address] examination was performed using dose optimization techniques as appropriate, variously including the following: *Automated exposure control *Adjustment of mA and/or kV according to patient size (this includes techniques or standardized protocols for targeted exams where dose is matched to indication/reason for exam; i.e. extremities or head) *Use of iterative reconstruction technique DLP: 1568 mGy-cm FINDINGS: There is no evidence of acute intracranial hemorrhage or territorial infarction. No abnormal mass effect or midline shift is seen. Cruz to white matter differentiation is well preserved. No extra-axial fluid collections are identified. There is no abnormal enhancement. The ventricles are normal in size. There is no abnormal attenuation within the brain parenchyma. The osseous structures and soft tissues are normal. The mastoid air cells and visualized portions of the paranasal sinuses are well aerated. CT/CT head/brain wo/w con IMPRESSION: Unremarkable exam. Dictated By:ABRAHAM PAREDES MDSigned By:<Electronically signed by ABRAHAM PAREDES MD in OV>02/20/211943 DD/ TD/TT: Director Visual: CHINO ECG Data Attestation: I personally reviewed and interpreted this ECG as follows: Interpretation: [facility] [place], [place] [address]UFes ReportSigned Patient: Veronica Granados#: [id number]: 1955cct:[id number]/Sex: 65 / FADM Date: 02/20/21Loc: HO.EDAttending Dr: Ordering Physician: Chery Weber PA-C Date of Service: 02/20/21 Procedure(s): XR chest 1V Accession Number(s): [id number] cc: Chery Weber PA-C~ EXAMINATION: XR CHEST CLINICAL INFORMATION: Dizziness COMPARISON: Portable chest December 23, 2020 TECHNIQUE: Frontal portable view of the chest was obtained. 4:40 PM FINDINGS: Pacemaker lead in right atrium and right ventricle. The cardiac and the mediastinal contours are normal. The heart size is normal. No pulmonary vascular congestion. Lungs are normally aerated. There is no pleural effusion or pneumothorax. Multilevel degenerative spondylosis of spine. XR/XR chest 1V IMPRESSION: No acute abnormality the chest. Dictated By:BANG HUMPHRIES MDSigned By:<Electronically signed by BANG HUMPHRIES MD in OV>02/20/21 1711 DD/ 1632TD/TT: Director Visual: KRISTIE Discharge Plan Discharge Clinical Impression: Dizziness Otitis media Qualifiers: Otitis media type: suppurative Chronicity: acute Laterality: left Recurrence: non-recurrent Spontaneous tympanic membrane rupture: without spontaneous rupture Qualified Code(s): H66.002 - Acute suppurative otitis media without spontaneous rupture of ear drum, left ear Patient Disposition: Home, Self-Care Instructions: Ear Infection (ED), Dizziness (ED) Additional Instructions: All of your labs and head CT an EKG were within normal limits today. The cause of your dizziness is your left ear is infected, I have sent a prescription for an anti dizzy medication to your pharmacy which you can use until your your infection is cleared, I have also sent a prescription for an antibiotic to clear your infection. You if you do not feel dizzy, you do not have to take the meclizine but please be sure to take the Augmentin in full as directed. If your symptoms continue or get worse, please return to the emergency department. Prescriptions: New amoxicillin-pot clavulanate [Augmentin] 875-125 mg tablet 1 tab PO Q12H Qty: 14 RF: 0 meclizine 12.5 mg tablet 12.5 mg PO BID PRN (Reason: dizziness) Qty: 10 RF: 0 No Action atorvastatin 80 mg tablet 80 mg PO BEDTIME RF: 0 sertraline 100 mg tablet 100 mg PO DAILY RF: 0 potassium chloride 20 mEq packet 20 meq PO DAILY RF: 0 magnesium oxide 400 mg (241.3 mg magnesium) tablet 400 mg PO DAILY RF: 0 benztropine 1 mg tablet 1 mg PO BID RF: 0 albuterol sulfate [ProAir HFA] 90 mcg/actuation HFA aerosol inhaler 2 puff PO Q4H PRN (Reason: dyspnea) RF: 0 loratadine 10 mg tablet 10 mg PO DAILY RF: 0 levothyroxine 112 mcg tablet 112 mcg PO DAILY RF: 0 melatonin 5 mg tablet 1 - 2 tab PO BEDTIME PRN (Reason: insomnia) RF: 0 Invega Sustenna 234 mg/1.5 mL syringe 234 mg IM Q4W RF: 0 Xarelto 20 mg tablet 20 mg PO BEDTIME RF: 0 sertraline 50 mg Tablet 50 mg PO DAILY RF: 0 tizanidine 4 mg Capsule 4 mg PO BEDTIME PRN (Reason: Muscle Spasm) RF: 0 fluticasone propionate 50 mcg/actuation [place],Suspension 1 spray INTRANASAL BID RF: 0 diltiazem HCl [Cardizem CD] 120 mg Capsule,Extended Release 24hr 120 mg PO DAILY Qty: 30 RF: 1 metoprolol tartrate 50 mg Tablet 50 mg PO BID Qty: 60 RF: 1 risperidone 1 mg Tablet 1 mg PO DAILY Qty: 30 RF: 1 risperidone 2 mg Tablet 2 mg PO BEDTIME Qty: 30 RF: 1 metoprolol tartrate 100 mg tablet 100 mg PO BID RF: 0 Anoro Ellipta 62.5-25 mcg/actuation blister with device 1 inh inhalation DAILY Qty: 60 RF: 11 Interventions: ED Discharge Assessment Last Done: 02/20/21 20:37 Discharge Date/Time: 02/20/21 21:01
[2021-02-20 17:37] VITALS: BP 152/86; BP 166/70; PULSE 59; PULSE 62
[2021-02-20 17:38] VITALS: BP 155/83; PULSE 60
[2021-02-20 18:06] VITALS: BP 151/81; PULSE 60; RESP 24; O2SAT 94
[2021-02-20 18:07] LABS: MANUAL DIFF FLAG NO
[2021-02-20 18:08] LABS: Glucose Urine UA NEG (NEG); Leukocyte Esterase Urine NEG (NEG); Nitrite Urine NEG (NEG); Specific Gravity - Urine <= 1.005 (1.005-1.025); Urine Blood NEG (NEG); Urine Ketones NEG (NEG); Urine Protein NEG (NEG-TRACE)
[2021-02-20 18:09] LABS: Appearance Urine CLEAR; Color Urine COLORLESS
[2021-02-20 18:13] LABS: INTERNATIONAL NORM RATIO 1.3 (0.9-1.1); Prothrombin Time 15.1 SEC (10.8-13.0)
[2021-02-20 18:16] LABS: Partial Thromboplastin Time 41.8 SEC (24.1-38.0)
[2021-02-20 18:25] LABS: Basophils Percent Auto 0.2 % (0-2); Eosinophils Absolute Auto 0.3 X10*3/uL (0.0-0.4); Eosinophils Percent Auto 3.5 % (0-4); Hematocrit 36.8 % (37-47); Hemoglobin 12.4 g/dl (12.0-16.0); Imm Gran Abs Auto 0.03 X10*3/uL (0.00-0.03); Imm Gran Pct Auto 0.4 % (0.0-0.4); Lymphocytes Absolute Auto 2.5 X10*3/uL (1.2-4.9); Lymphocytes Percent Auto 29.8 % (20-40); Mean Corpuscular HGB Conc 33.7 g/dl (31.0-35.0); Mean Corpuscular Volume 88.9 fL (80-98); Mean Platelet Volume 8.7 fL (9.4-12.3); Monocytes Absolute Auto 0.7 X10*3/uL (0.1-1.2); Monocytes Percent Auto 7.9 % (2-11); Neutrophils Percent Auto 58.2 % (45-73); Platelet Count 302 X10*3/uL (160-400); Red Blood Count 4.14 X10*6/uL (4.20-5.50); Red Cell Distribution Width 14.3 % (11.0-16.0); White Blood Count 8.5 X10*3/uL (4.8-10.8)
[2021-02-20 18:45] LABS: Alanine Aminotransferase 21 U/L (0-31); Albumin Level 3.8 g/dL (3.5-5.0); Alkaline Phosphatase 115 U/L (39-117); Anion Gap 14 (12-20); Aspartate Amino Transferase 22 U/L (5-31); Bilirubin Total 0.4 mg/dL (0.0-1.0); Blood Urea Nitrogen 11 mg/dL (9-16); Calcium 8.9 mg/dL (8.4-10.2); Carbon Dioxide 22 mmol/L (22-29); Chloride 106 mmol/L (96-108); Creatinine Clr Calc Pharmacy 88.4; Estimated Glomerular Filt Rate > 60; Glucose Random 86 mg/dL (60-115); Potassium 3.9 mmol/L (3.3-5.1); Sodium 138 mmol/L (135-145); Total Protein 7.2 g/dL (6.5-8.0)
[2021-02-20 18:50] LABS: Troponin-I High Sensitivity < 3.5 ng/L (<3.5-17.0)
[2021-02-20 18:51] LABS: Erythrocyte Sedimentation Rate 33 MM/HR (0-20)
[2021-02-20] MEDS: iohexoL 350 MG/ML 100 ML INFUS..BTL IV (19:22)
[2021-02-20 20:11] VITALS: BP 140/29; PULSE 61; RESP 16; O2SAT 93
[2021-02-20] MEDS: Meclizine HCl 25 MG TABLET PO (20:33)
[2021-02-20] MEDS: Amoxicillin/Potassium Clav 875 MG TABLET PO (20:33)
--- NOTE | 2021-02-20 20:58 | PC.NURSE ---
Patient unable to find ride home. patient discharged to waiting room. Charge nurse to keep trying daughter's number while patient waits in waiting room.
== END 2021-02-20 21:01 | disposition home or self-care (01) ==
PROVIDERS: Physician Assistant; Emergency Provider Internal Medicine; PCP Internal Medicine
DX: H66.002 Acute suppurative otitis media without spontaneous rupture of ear drum, left ear (principal); I48.91 Unspecified atrial fibrillation; I11.9 Hypertensive heart disease without heart failure; J44.9 Chronic obstructive pulmonary disease, unspecified; Z79.01 Long term (current) use of anticoagulants; Z79.899 Other long term (current) drug therapy; Z95.0 Presence of cardiac pacemaker
CPT/HCPCS: 36415; 70470; 71045; 80053; 81003; 84484; 85025; 85610; 85652; 85730; 93005; 99285; Q9967

== ENCOUNTER → 2021-03-31 19:49 | Outpatient (REF) | payer MEDICARE, MEDICAID, SELFPAY | LOC: HO.SL 19:49 | PROVIDERS: Visit Provider Hospitalist | DX: G47.33 Obstructive sleep apnea (adult) (pediatric) (principal) | CPT/HCPCS: 95810 ==

== ENCOUNTER 2021-04-01 10:30 | Outpatient (REF) | payer MEDICARE, MEDICAID, SELFPAY ==
--- NOTE | 2021-04-01 15:13 | PFT_ITS ---
Forced vital capacity and FEV1 are both moderately reduced. GTA22-31 and MVV are slightly reduced. Post bronchodilator therapy, there is significant improvement in FEV1 and [id number]. Total lung capacity is slightly reduced. Residual volume normal. Diffusion capacity is moderately reduced. CONCLUSION: Mild degree of restrictive pulmonary disorder. Mild obstructive airway disorder with good response to bronchodilator therapy indicating presence of bronchospastic component. These findings are suggestive of mild asthma or reactive airways. Clinical correlation is recommended. Karie Gaston MD MSB/MODL / [id number]
== END 2021-04-01 10:31 | disposition home or self-care (01) ==
LOC: HO.RESP 10:30
PROVIDERS: PCP Internal Medicine; Visit Provider Hospitalist
DX: J44.9 Chronic obstructive pulmonary disease, unspecified (principal); G47.33 Obstructive sleep apnea (adult) (pediatric)
CPT/HCPCS: 94060; 94727; 94729

== ENCOUNTER → 2021-04-15 09:58 | Outpatient (BNVA) | payer MEDICARE, MEDICAID, SELFPAY | PROVIDERS: PCP Internal Medicine; Visit Provider Internal Medicine | DX: J44.9 Chronic obstructive pulmonary disease, unspecified (principal); E66.01 Morbid (severe) obesity due to excess calories; G47.33 Obstructive sleep apnea (adult) (pediatric); G47.34 Idiopathic sleep related nonobstructive alveolar hypoventilation | CPT/HCPCS: 99212 ==

== ENCOUNTER → 2021-04-29 11:33 | Outpatient (BNVA) | payer MEDICARE, MEDICAID, SELFPAY | PROVIDERS: PCP Internal Medicine; Referring Provider Internal Medicine; Visit Provider Internal Medicine | DX: Z45.018 Encounter for adjustment and management of other part of cardiac pacemaker (principal); I48.0 Paroxysmal atrial fibrillation; I49.5 Sick sinus syndrome; I42.8 Other cardiomyopathies; G47.33 Obstructive sleep apnea (adult) (pediatric) | CPT/HCPCS: 99212 ==

== ENCOUNTER 2021-04-29 15:44 | Emergency (ER) | payer MEDICARE, MEDICAID, SELFPAY ==
--- NOTE | ~2021-04-29 | XR_ITS ---
EXAMINATION: XR CHEST CLINICAL INFORMATION: Chest pain COMPARISON: Chest x-ray February 20, 2021 TECHNIQUE: 2 views of the chest were obtained. FINDINGS: Cardiac silhouette is at the upper limits of normal in size. Unchanged orientation of dual lead pacemaker. The lungs are adequately aerated. Similar subtle opacity within the medial right lung base likely representing a combination of vasculature and atelectasis. There is no lobar consolidation. No pleural effusion or pneumothorax. Mild degenerative changes of the spine. XR/XR chest 2V IMPRESSION: Stable examination demonstrating no acute pulmonary pathology.
[2021-04-29 16:01] VITALS: BP 141/65; BP 160/90; PULSE 59; PULSE 70; RESP 23; TEMP 37.2; O2SAT 96; BMI 52.6
--- NOTE | 2021-04-29 16:09 | ED_ITS ---
HPI - Chest Pain General Chief Complaint: Chest Pain Stated Complaint: L SIDED CHEST PAIN Time Seen by Provider: 04/29/21 16:07 Source: EMS Mode of arrival: EMS Limitations: no limitations History of Present Illness HPI narrative: ?65-year-old female with a past medical history of asthma, hypertension, hypothyroid, pacemaker, hypoxic respiratory failure due to COVID pneumonia, schizophrenia, AFib with RVR on Xarelto, BIBA here with complaints of left sided chest pain since 230pm. Patient tells me she went to buckle her seatbelt on the bus and felt a sharp pain in her left chest. Since then intermittent chest pain worsened with movement and palpation. Not worsened with deep breathing. No cough, shortness of breath, fevers, chills, leg swelling or pain. Related Data Home Medications Medication Instructions Recorded Confirmed albuterol sulfate 90 mcg/actuation 2 puff PO Q4H PRN 07/30/20 04/29/21 aerosol inhaler (ProAir HFA) atorvastatin 80 mg tablet 80 mg PO BEDTIME 07/30/20 04/29/21 levothyroxine 112 mcg tablet 112 mcg PO DAILY 07/30/20 04/29/21 loratadine 10 mg tablet 10 mg PO DAILY 07/30/20 04/29/21 magnesium oxide 400 mg (241.3 mg 400 mg PO DAILY 07/30/20 04/29/21 magnesium) tablet melatonin 5 mg tablet 1 - 2 tab PO BEDTIME PRN 07/30/20 04/29/21 potassium chloride 20 mEq oral 20 meq PO DAILY 07/30/20 04/29/21 packet rivaroxaban 20 mg tablet (Xarelto) 20 mg PO BEDTIME 07/30/20 04/29/21 sertraline 100 mg tablet 100 mg PO DAILY 07/30/20 04/29/21 fluticasone propionate 50 1 spray INTRANASAL BID 10/25/20 04/29/21 mcg/actuation nasal spray,suspension sertraline 50 mg tablet 50 mg PO DAILY 10/25/20 04/29/21 metoprolol tartrate 100 mg tablet 100 mg PO BID 02/11/21 04/29/21 nystatin 100,000 unit/gram topical TOPICAL 04/15/21 04/29/21 powder ([facility]) paliperidone palmitate 234 mg/1.5 234 mg IM Q3W ml 04/15/21 04/29/21 mL intramuscular syringe (Invega Sustenna) Previous Rx's Medication Instructions Recorded diltiazem HCl 120 mg 120 mg PO DAILY #30 cap 10/29/20 capsule,extended release 24 hr (Cardizem CD) risperidone 1 mg tablet 1 mg PO DAILY #30 tab 10/29/20 risperidone 2 mg tablet 2 mg PO BEDTIME #30 tab 10/29/20 ipratropium 20 mcg-albuterol 100 1 puff INHALATION QID 30 Days #4 g 03/31/21 mcg/actuation mist for inhalation (Combivent Respimat) Allergies Allergy/AdvReac Type Severity Reaction Status Date / Time No Known Allergies Allergy Verified 04/29/21 16:07 Review of Systems Review of Systems: Yes all other systems are reviewed and are negative Constitutional: Constitutional: Reports no additional constitutional complaints, Denies body ache(s), Denies chills, Denies fever(s), Denies headache(s) and Denies weakness Eyes: Eyes: Reports no additional eye complaints and Denies change in vision ENT: Reports system reviewed and no additional complaints, except as documented, Denies dizziness, Denies headache(s), Denies nasal congestion, Denies nasal discharge and Denies neck pain Cardiovascular: Cardiovascular: Reports no additional cardiovascular complaints, Reports chest pain, Denies leg edema and Denies dyspnea Respiratory: Respiratory: Reports no additional respiratory complaints, Denies cough and Denies dyspnea Gastrointestinal: Gastrointestinal: Reports no additional gastrointestinal complaints, Denies abdominal pain, Denies diarrhea, Denies nausea and Denies vomiting Genitourinary: Genitourinary: Reports no additional female genitourinary complaints and Denies urinary incontinence Musculoskeletal: Musculoskeletal: Reports no additional musculoskeletal compla ints, Denies back pain, Denies arthralgias, Denies joint swelling, Denies neck pain, Denies numbness and Denies tingling Integumentary/Breasts: Skin/Breast: Reports system reviewed and no additional complaints, except as docu and Denies rash Neurologic: Reports system reviewed and no additional complaints, except as documented, Denies Abnormal speech present, Denies dizziness, Denies headache(s), Denies numbness, Denies tingling and Denies weakness [facility] Past Medical History Attestation statement: The following information was validated with the patient. Source: old records reviewed and nursing notes reviewed Medical History Afib Asthma Asthma-COPD overlap syndrome Atrial fib/flutter, transient Diastolic dysfunction HTN (hypertension) Hypothyroid Morbid obesity Nocturnal hypoxemia Nonischemic cardiomyopathy Pacemaker PAF (paroxysmal atrial fibrillation) Pneumonia due to COVID-19 virus Pneumonitis Schizophrenia Schizophrenia Schizophrenia, paranoid Surgical History History of cardiac pacemaker Hx of kidney removal Hx of removal of ovary Family History Family History Father Heart disease Mother Heart disease Social History Social History Household Members: None Housing: Apartment Do you presently have visiting nurse or other home services: Yes Patient Tobacco Use Status: Former Tobacco user Tobacco use type: Cigarette Years Smoked: 10 years Use of substances other than those prescribed or required for medical reasons: No Advance Directives: No Advance Directives Information Provided: No service: No Current occupational status: disabled Physical Exam Vital Signs: Vital Signs: Last Vital Signs Temp 97.7 F 04/29/21 19:02 Pulse 60 04/29/21 19:02 Resp 16 04/29/21 19:02 BP 121/43 L 04/29/21 19:02 Pulse Ox 94 04/29/21 19:02 Body Mass Index 52.6 Const: General: cooperative, healthy appearing, comfortable and no acute distress Orientation/consciousness: patient oriented x3 Limitations: no limitations HENMT: Head: Yes normal to inspection Ears: hearing grossly normal bilaterally General nose exam: Normal external nose present Face and sinus: Yes normal facial exam Mouth: Normal oral and palatal mucosa present Throat: Yes posterior oropharynx normal Eyes: General: appearance normal, both eyes and all related structures Pupils: Equal, round and reactive pupils present Neck: Neck: Yes normal visual inspection Chest: Chest palpation & inspection: normal inspection of the chest and tenderness (left chest tender to palpation, worsened with arm movement. ) Resp: Effort & Inspection: normal respiratory effort Auscultation: clear to auscultation bilaterally Cardio: Rate: regular rate Rhythm: regular rhythm Peripheral pulses: Peripheral pulses 2+ throughout GI: Inspection: Yes normal to inspection Palpation (GI): Soft to palpation and nontender Auscultation: normal bowel sounds Back/Spine/Pelvis: Thoracic/Lumbar Spine: thoracic and lumbar spine normal to inspection Skin: General skin exam: no rashes or lesions noted Neuro: General: patient oriented x3, no focal motor deficits and normal sensation to monofilament Cranial nerves: Yes Equal, round and reactive pupils present Cognition (Neuro): normal cognition Speech: No Abnormal speech present Gait exam (Neuro): Normal gait present Motor exam (neuro): 5/5 motor strength present throughout Extrem: General: Yes normal to inspection, Yes no pedal edema and Yes no calf tenderness Course Course Course Narrative: ?65-year-old female with a past medical history of asthma, hypertension, hypothyroid, pacemaker, hypoxic respiratory failure due to COVID pneumonia, schizophrenia, AFib with RVR on Xarelto, BIBA here with complaints of MS left sided chest pain since 230 PM after buckling her seatbelt on the bus. On exam pain is more MS. Less likely PE as patient is compliant with xarelto. Will check labs, EKG, CXR. 1699-Initial labs including troponin negative. Plan for repeat 3 hr troponin. 1955-troponin x2 Delta. Less likely ACS with atypical chest pain, negative troponin and EKG which shows no ischemic changes. ? muscle strain as it occurred after a twisting of the torso. Reviewed worrisome signs and symptoms of when to return to the emergency department. Comfortable discharge home. MDM - Chest Pain MDM Narrative Medical decision making narrative: chest wall strain Differential Diagnosis Differential diagnosis: Likely atypical chest pain and chest pain Medical Records Data Attestation: I reviewed the patient's medical records. Lab Data Attestation: I reviewed the patient's lab results. Result diagrams: 04/29/21 16:27 04/29/21 16:28 Labs: Lab Results 04/29/21 04/29/21 04/29/21 Range/Units 16:27 16:28 16:28 WBC 7.4 (4.8-10.8) X10*3/uL RBC 4.10 L (4.20-5.50) X10*6/uL Hgb 12.0 (12.0-16.0) g/dl Hct 37.5 (37-47) % MCV 91.5 (80-98) fL MCH 29.3 (27.0-33.0) pg MCHC 32.0 (31.0-35.0) g/dl RDW 13.7 (11.0-16.0) % Plt Count 267 (160-400) X10*3/uL MPV 8.9 L (9.4-12.3) fL Immature Gran % (Auto) 0.3 (0.0-0.4) % Neut % (Auto) 56.3 (45-73) % Lymph % (Auto) 28.6 (20-40) % [place] % (Auto) 10.3 (2-11) % Eos % (Auto) 4.2 H (0-4) % Baso % (Auto) 0.3 (0-2) % Lymph # (Auto) 2.1 (1.2-4.9) X10*3/uL [place] # (Auto) 0.8 (0.1-1.2) X10*3/uL Eos # (Auto) 0.3 (0.0-0.4) X10*3/uL Baso # (Auto) 0.0 (0.0-0.2) X10*3/uL Abs Immat Gran (auto) 0.02 (0.00-0.03) X10*3/uL Absolute Neuts (auto) 4.2 (2.0-8.3) X10*3/uL Absolute Nucleated RBC 0.000 (0.0-0.012) X10*3/uL Nucleated RBC % (auto) 0.0 (0.0-0.2) /100WBC PT 12.1 (9.9-13.0) SEC INR 1.1 (0.9-1.1) Sodium 140 (135-145) mmol/L Potassium 4.5 (3.3-5.1) mmol/L Chloride 105 (96-108) mmol/L Carbon Dioxide 31 H (22-29) mmol/L Anion Gap 9 L (12-20) BUN 15 (9-16) mg/dL Creatinine 0.79 (0.5-1.4) mg/dL Estim Creat Clear Calc 95.6 Estimated GFR > 60 Random Glucose 89 (60-115) mg/dL Calcium 9.6 D (8.4-10.2) mg/dL Magnesium 2.0 (1.6-2.6) mg/dL Total Bilirubin 0.4 (0.0-1.0) mg/dL Direct Bilirubin < 0.2 (0.0-0.5) mg/dL AST 23 (5-31) U/L ALT 26 (0-31) U/L Alkaline Phosphatase 112 (39-117) U/L Troponin I High Sens (<3.5-17.0) ng/L Total Protein 7.4 (6.5-8.0) g/dL Albumin 4.0 (3.5-5.0) g/dL 04/29/21 04/29/21 04/29/21 Range/Units 16:28 17:17 19:25 WBC (4.8-10.8) X10*3/uL RBC (4.20-5.50) X10*6/uL Hgb (12.0-16.0) g/dl Hct (37-47) % MCV (80-98) fL MCH (27.0-33.0) pg MCHC (31.0-35.0) g/dl RDW (11.0-16.0) % Plt Count (160-400) X10*3/uL MPV (9.4-12.3) fL Immature Gran % (Auto) (0.0-0.4) % Neut % (Auto) (45-73) % Lymph % (Auto) (20-40) % [place] % (Auto) (2-11) % Eos % (Auto) (0-4) % Baso % (Auto) (0-2) % Lymph # (Auto) (1.2-4.9) X10*3/uL [place] # (Auto) (0.1-1.2) X10*3/uL Eos # (Auto) (0.0-0.4) X10*3/uL Baso # (Auto) (0.0-0.2) X10*3/uL Abs Immat Gran (auto) (0.00-0.03) X10*3/uL Absolute Neuts (auto) (2.0-8.3) X10*3/uL Absolute Nucleated RBC (0.0-0.012) X10*3/uL Nucleated RBC % (auto) (0.0-0.2) /100WBC PT (9.9-13.0) SEC INR (0.9-1.1) Sodium (135-145) mmol/L Potassium (3.3-5.1) mmol/L Chloride (96-108) mmol/L Carbon Dioxide (22-29) mmol/L Anion Gap (12-20) BUN (9-16) mg/dL Creatinine (0.5-1.4) mg/dL Estim Creat Clear Calc Estimated GFR Random Glucose (60-115) mg/dL Calcium (8.4-10.2) mg/dL Magnesium (1.6-2.6) mg/dL Total Bilirubin (0.0-1.0) mg/dL Direct Bilirubin (0.0-0.5) mg/dL AST (5-31) U/L ALT (0-31) U/L Alkaline Phosphatase (39-117) U/L Troponin I High Sens < 3.5 < 3.5 < 3.5 (<3.5-17.0) ng/L Total Protein (6.5-8.0) g/dL Albumin (3.5-5.0) g/dL Imaging Data Chest x-ray: Attestation: I personally reviewed and interpreted this imaging study as follows: Radiologist's impression: XAMINATION: XR CHEST CLINICAL INFORMATION: Chest pain COMPARISON: Chest x-ray February 20, 2021 TECHNIQUE: 2 views of the chest were obtained. FINDINGS: Cardiac silhouette is at the upper limits of normal in size. Unchanged orientation of dual lead pacemaker. The lungs are adequately aerated. Similar subtle opacity within the medial right lung base likely representing a combination of vasculature and atelectasis. There is no lobar consolidation. No pleural effusion or pneumothorax. Mild degenerative changes of the spine. XR/XR chest 2V IMPRESSION: Stable examination demonstrating no acute pulmonary pathology. ECG Data ECG #1: Attestation: I personally reviewed and interpreted this ECG as follows: ECG interpretation date: 04/29/21 ECG interpretation time: 16:33 Interpretation: Atrial paced rhythm with a rate of 60, Discharge Plan Discharge Clinical Impression: Atypical chest pain Patient Disposition: Home, Self-Care Instructions: Chest Pain (ED) Additional Instructions: Your lab work, EKG and x-ray looked normal. Follow-up with your PCP Prescriptions: No Action Combivent Respimat 20-100 mcg/actuation mist 1 puff inhalation QID 30 Days Qty: 4 RF: 11 atorvastatin 80 mg tablet 80 mg PO BEDTIME RF: 0 sertraline 100 mg tablet 100 mg PO DAILY RF: 0 potassium chloride 20 mEq packet 20 meq PO DAILY RF: 0 magnesium oxide 400 mg (241.3 mg magnesium) tablet 400 mg PO DAILY RF: 0 albuterol sulfate [ProAir HFA] 90 mcg/actuation HFA aerosol inhaler 2 puff PO Q4H PRN (Reason: dyspnea) RF: 0 loratadine 10 mg tablet 10 mg PO DAILY RF: 0 levothyroxine 112 mcg tablet 112 mcg PO DAILY RF: 0 melatonin 5 mg tablet 1 - 2 tab PO BEDTIME PRN (Reason: insomnia) RF: 0 Xarelto 20 mg tablet 20 mg PO BEDTIME RF: 0 Invega Sustenna 234 mg/1.5 mL syringe 234 mg IM Q3W RF: 0 sertraline 50 mg Tablet 50 mg PO DAILY RF: 0 fluticasone propionate 50 mcg/actuation [place],Suspension 1 spray INTRANASAL BID RF: 0 diltiazem HCl [Cardizem CD] 120 mg Capsule,Extended Release 24hr 120 mg PO DAILY Qty: 30 RF: 1 risperidone 1 mg Tablet 1 mg PO DAILY Qty: 30 RF: 1 risperidone 2 mg Tablet 2 mg PO BEDTIME Qty: 30 RF: 1 metoprolol tartrate 100 mg tablet 100 mg PO BID RF: 0 nystatin [Nyamyc] 100,000 unit/gram powder topical RF: 0 Referrals: Kiera London MD [Primary Care Provider] - 2 days
--- NOTE | 2021-04-29 16:10 | ECG_ITS ---
Test Reason : CHEST PAIN Blood Pressure : / mmHG Vent. Rate : 060 BPM Atrial Rate : 060 BPM P-R Int : 178 ms QRS Dur : 088 ms QT Int : 438 ms P-R-T Axes : -02 - 053 degrees QTc Int : 438 ms Atrial-paced rhythm Left axis deviation Abnormal ECG When compared with ECG of 20-FEB-2021 17:16, No significant change was found Referred By: Deb Willis Electronically Signed By:ARMANDO DEJESUS
[2021-04-29 16:33] LABS: MANUAL DIFF FLAG NO
[2021-04-29 16:35] LABS: Basophils Percent Auto 0.3 % (0-2); Eosinophils Absolute Auto 0.3 X10*3/uL (0.0-0.4); Eosinophils Percent Auto 4.2 % (0-4); Hematocrit 37.5 % (37-47); Imm Gran Abs Auto 0.02 X10*3/uL (0.00-0.03); Imm Gran Pct Auto 0.3 % (0.0-0.4); Lymphocytes Absolute Auto 2.1 X10*3/uL (1.2-4.9); Lymphocytes Percent Auto 28.6 % (20-40); Mean Corpuscular Hemoglobin 29.3 pg (27.0-33.0); Mean Corpuscular Volume 91.5 fL (80-98); Mean Platelet Volume 8.9 fL (9.4-12.3); Monocytes Absolute Auto 0.8 X10*3/uL (0.1-1.2); Monocytes Percent Auto 10.3 % (2-11); Neutrophils Absolute Auto 4.2 X10*3/uL (2.0-8.3); Neutrophils Percent Auto 56.3 % (45-73); Platelet Count 267 X10*3/uL (160-400); Red Cell Distribution Width 13.7 % (11.0-16.0); White Blood Count 7.4 X10*3/uL (4.8-10.8)
--- NOTE | 2021-04-29 16:37 | PC.NURSE ---
Pt denies pain at this time, appears comfortable. Skin pwd, speaking full sentences. Awaitign lab results. denies dizziness or SOB
--- NOTE | 2021-04-29 16:37 | PC.NURSE ---
EKG WAS [id number] BY THIS PCT ,PATIENT WAS CHANGE INTO HOSPITAL ATTIRE .
[2021-04-29 16:38] VITALS: BP 168/64; PULSE 60; RESP 16; TEMP 37.1; O2SAT 95
[2021-04-29 16:40] LABS: INTERNATIONAL NORM RATIO 1.1 (0.9-1.1); Prothrombin Time 12.1 SEC (9.9-13.0)
[2021-04-29 16:51] LABS: Alanine Aminotransferase 26 U/L (0-31); Alkaline Phosphatase 112 U/L (39-117); Anion Gap 9 (12-20); Aspartate Amino Transferase 23 U/L (5-31); Bilirubin Direct < 0.2 mg/dL (0.0-0.5); Bilirubin Total 0.4 mg/dL (0.0-1.0); Blood Urea Nitrogen 15 mg/dL (9-16); Calcium 9.6 mg/dL (8.4-10.2); Carbon Dioxide 31 mmol/L (22-29); Chloride 105 mmol/L (96-108); Creatinine Clr Calc Pharmacy 95.6; Estimated Glomerular Filt Rate > 60; Glucose Random 89 mg/dL (60-115); Potassium 4.5 mmol/L (3.3-5.1); Sodium 140 mmol/L (135-145); Total Protein 7.4 g/dL (6.5-8.0)
[2021-04-29 16:53] LABS: Troponin-I High Sensitivity < 3.5 ng/L (<3.5-17.0)
[2021-04-29 17:44] LABS: Troponin-I High Sensitivity < 3.5 ng/L (<3.5-17.0)
[2021-04-29 19:02] VITALS: BP 121/43; PULSE 60; RESP 16; TEMP 36.5; O2SAT 94
--- NOTE | 2021-04-29 19:23 | PC.NURSE ---
repeat troponin being drawn at this time, pt remains chest pain free at this time.
[2021-04-29 19:50] LABS: Troponin-I High Sensitivity < 3.5 ng/L (<3.5-17.0)
== END 2021-04-29 21:03 | disposition home or self-care (01) ==
PROVIDERS: Nurse Practitioner Family; Emergency Provider Emergency Medicine; PCP Internal Medicine
DX: R07.89 Other chest pain (principal); I10 Essential (primary) hypertension; I48.0 Paroxysmal atrial fibrillation; E66.01 Morbid (severe) obesity due to excess calories; Z95.0 Presence of cardiac pacemaker; Z79.01 Long term (current) use of anticoagulants; Z87.01 Personal history of pneumonia (recurrent); Z79.899 Other long term (current) drug therapy; Z90.5 Acquired absence of kidney
CPT/HCPCS: 36415; 71046; 80048; 80076; 83735; 84484; 85025; 85610; 93005; 99283; 99285

== ENCOUNTER → 2021-06-17 09:55 | Outpatient (BNVA) | payer MEDICARE, MEDICAID, SELFPAY | PROVIDERS: PCP Internal Medicine; Visit Provider Hospitalist | DX: J18.9 Pneumonia, unspecified organism (principal); I51.89 Other ill-defined heart diseases; G47.33 Obstructive sleep apnea (adult) (pediatric); J44.9 Chronic obstructive pulmonary disease, unspecified | CPT/HCPCS: 99212 ==

== ENCOUNTER → 2021-08-19 13:47 | Outpatient (BNVA) | payer MEDICARE, MEDICAID, SELFPAY | PROVIDERS: PCP Internal Medicine; Referring Provider Internal Medicine; Visit Provider Nurse Practitioner Family | DX: R06.02 Shortness of breath (principal); I42.8 Other cardiomyopathies; I49.5 Sick sinus syndrome; I48.0 Paroxysmal atrial fibrillation; J45.909 Unspecified asthma, uncomplicated; E66.01 Morbid (severe) obesity due to excess calories; Z68.43 Body mass index [BMI] 50.0-59.9, adult | CPT/HCPCS: 99212 ==

== ENCOUNTER 2021-11-24 14:31 | Emergency (ER) | payer MEDICARE, MEDICAID, SELFPAY ==
[2021-11-24 15:37] VITALS: BP 145/67; PULSE 60; RESP 18; TEMP 36.6; O2SAT 96; BMI 52.0
--- NOTE | 2021-11-24 16:56 | ED.EXTPRO ---
HPI - Extremity Problem General Chief complaint: Extremity Problem Stated complaint: L leg pain Time Seen by Provider: 11/24/21 15:51 Source: patient Mode of arrival: ambulatory Limitations: no limitations History of Present Illness HPI Narrative: 66-year-old female with a past medical history of asthma, hypertension, hypothyroid, pacemaker, hypoxic respiratory failure due to COVID pneumonia, schizophrenia, AFib with RVR on Xarelto, BIBA here with complaints of left lateral leg pain and numbness which has been intermittent over the last 3 days. Patient tells me that since being in the waiting room her pain and numbness has resolved. She denies any associated redness, swelling, fevers, chills, shortness of breath. Patient has been compliant with his Xarelto tells me she has not missed any doses. Related Data Home Medications Medication Instructions Recorded Confirmed atorvastatin 80 mg tablet 80 mg PO BEDTIME 07/30/20 08/19/21 levothyroxine 112 mcg tablet 112 mcg PO DAILY 07/30/20 08/19/21 loratadine 10 mg tablet 10 mg PO DAILY 07/30/20 08/19/21 magnesium oxide 400 mg (241.3 mg 400 mg PO DAILY 07/30/20 08/19/21 magnesium) tablet melatonin 5 mg tablet 1 - 2 tab PO BEDTIME PRN 07/30/20 08/19/21 potassium chloride 20 mEq oral 20 meq PO DAILY 07/30/20 08/19/21 packet rivaroxaban 20 mg tablet (Xarelto) 20 mg PO BEDTIME 07/30/20 08/19/21 sertraline 100 mg tablet 100 mg PO DAILY 07/30/20 08/19/21 fluticasone propionate 50 1 spray INTRANASAL BID 10/25/20 08/19/21 mcg/actuation nasal spray,suspension sertraline 50 mg tablet 50 mg PO DAILY 10/25/20 08/19/21 metoprolol tartrate 100 mg tablet 100 mg PO BID 02/11/21 08/19/21 nystatin 100,000 unit/gram topical TOPICAL 04/15/21 08/19/21 powder ([facility]) paliperidone palmitate 234 mg/1.5 234 mg IM Q3W ml 04/15/21 08/19/21 mL intramuscular syringe ([facility]) benztropine 1 mg tablet 1 mg PO BID 06/17/21 08/19/21 risperidone 0.5 mg tablet 0.5 mg PO BID 06/17/21 08/19/21 umeclidinium 62.5 mcg-vilanterol 1 ea INHALATION DAILY 06/17/21 08/19/21 25 mcg/actuation powdr for inhalation (Anoro Ellipta) Previous Rx's Medication Instructions Recorded diltiazem HCl 120 mg 120 mg PO DAILY #30 cap 10/29/20 capsule,extended release 24 hr (Cardizem CD) risperidone 1 mg tablet 1 mg PO DAILY #30 tab 10/29/20 ipratropium 20 mcg-albuterol 100 1 puff INHALATION QID 30 Days #4 g 03/31/21 mcg/actuation mist for inhalation (Combivent Respimat) albuterol sulfate 90 mcg/actuation 2 puff PO Q4H PRN #8.5 g 06/17/21 aerosol inhaler (ProAir HFA) Allergies Allergy/AdvReac Type Severity Reaction Status Date / Time No Known Allergies Allergy Verified 11/24/21 15:39 Review of Systems Review of Systems: Yes all other systems are reviewed and are negative Constitutional: Constitutional: Reports no additional constitutional complaints, Denies body ache(s), Denies chills, Denies fever(s), Denies headache(s) and Denies weakness Eyes: Eyes: Reports no additional eye complaints and Denies change in vision ENT: Reports system reviewed and no additional complaints, except as documented, Denies dizziness, Denies headache(s), Denies nasal congestion, Denies nasal discharge and Denies neck pain Cardiovascular: Cardiovascular: Reports no additional cardiovascular complaints, Denies chest pain, Denies leg edema and Denies dyspnea Respiratory: Respiratory: Reports no additional respiratory complaints, Denies cough and Denies dyspnea Gastrointestinal: Gastrointestinal: Reports no additional gastrointestinal complaints, Denies abdominal pain, Denies diarrhea, Denies nausea and Denies vomiting Genitourinary: Genitourinary: Reports no additional female genitourinary complaints and Denies urinary incontinence Musculoskeletal: Musculoskeletal: Reports no additional musculoskeletal complaints, Denies back pain, Denies arthralgias, Denies joint swelling, Denies neck pain, Reports numbness and Denies tingling Integumentary/Breasts: Skin/Breast: Reports system reviewed and no additional complaints, except as docu and Denies rash Neurologic: Reports system reviewed and no additional complaints, except as documented, Denies Abnormal speech present, Denies dizziness, Denies headache(s), Reports numbness, Denies tingling and Denies weakness PMFSH Past Medical History Attestation statement: The following information was validated with the patient. Source: old records reviewed and nursing notes reviewed Medical History Afib Asthma Asthma-COPD overlap syndrome Atrial fib/flutter, transient Diastolic dysfunction HTN (hypertension) Hypothyroid Morbid obesity Nocturnal hypoxemia Nonischemic cardiomyopathy Pacemaker PAF (paroxysmal atrial fibrillation) Pneumonia due to COVID-19 virus Pneumonitis Schizophrenia Schizophrenia Schizophrenia, paranoid Surgical History History of cardiac pacemaker Hx of kidney removal Hx of removal of ovary Family History Family History Father Heart disease Mother Heart disease Social History Social History Household Members: None Housing: Apartment Do you presently have visiting nurse or other home services: Yes Patient Tobacco Use Status: Former Tobacco user Tobacco use type: Cigarette Years Smoked: 10 years Advance Directives: Yes Advance Directives on File: Yes Advance Directives Date on File: 10/30/20 service: No Current occupational status: disabled Physical Exam Vital Signs: Vital Signs: Last Vital Signs Temp 98 F 11/24/21 15:37 Pulse 60 11/24/21 15:37 Resp 18 11/24/21 15:37 BP 145/67 H 11/24/21 15:37 Pulse Ox 96 11/24/21 15:37 BMI result Body Mass Index 52.0 Const: General: cooperative Nutritional Appearance: obese Orientation/consciousness: patient oriented x3 Limitations: no limitations HEENT: Head: Yes normal to inspection Ears: hearing grossly normal bilaterally General nose exam: Normal external nose present Face and sinus: Yes normal facial exam Mouth: Normal oral and palatal mucosa present Throat: Yes posterior oropharynx normal Eyes: General: appearance normal, both eyes and all related structures Pupils: Equal, round and reactive pupils present Neck: Neck: Yes normal visual inspection Chest: Chest palpation & inspection: normal inspection of the chest Resp: Effort & Inspection: normal respiratory effort Auscultation: clear to auscultation bilaterally Cardio: Rate: regular rate Rhythm: regular rhythm Peripheral pulses: Peripheral pulses 2+ throughout GI: Inspection: Yes normal to inspection Palpation (GI): Soft to palpation and nontender Auscultation: normal bowel sounds Back/Spine/Pelvis: Thoracic/Lumbar Spine: thoracic and lumbar spine normal to inspection Skin: General skin exam: no rashes or lesions noted Neuro: General: patient oriented x3, no focal motor deficits and normal sensation to monofilament Cranial nerves: Yes CN's II-XII intact bilaterally, Yes Equal, round and reactive pupils present, Yes Bilaterally intact EOM present, Yes Nystagmus not present, Yes Normal facial strength present and Yes Midline tongue present Cognition (Neuro): normal cognition Speech: No Abnormal speech present Gait exam (Neuro): Normal gait present Motor exam (neuro): 5/5 motor strength present throughout Sensory Exam: Normal double simultaneous stimulation for sensation Extrem: Other: No tenderness on exam. Normal sensation on exam. No obvious redness, swelling or warmth. Palpable DP and PT pulses noted. General: Yes normal to inspection Course Course Course Narrative: 66-year-old female here with intermittent numbness and pain to the left lateral leg over the last few days. No known injury or trauma. No evidence of infection with no redness, warmth, fever. Normal neurological exam. Motor and sensation is intact. Patient does have a history of AFib and tells me she has been compliant with her Xarelto. The patient is morbidly obese with a BMI of 52 so there is a consideration that her Xarelto may not be sufficient for DVT coverage so consider DVT. I recommended the patient have an ultrasound while she was here in the emergency department but she declined this. She feels much better and would like to go home to follow-up with her primary care doctor outpatient. I did review worrisome signs and symptoms with her and told her she is welcome to return at any time. MDM - Extremity (Nontraumatic) Medical Records Attestation: I reviewed the patient's medical records. Discharge Plan Discharge Clinical Impression: Acute leg pain Patient Disposition: Left Against Medical Advice Instructions: Against Medical Advice (ED), Leg Pain (ED) Additional Instructions: It was recommended you have an ultrasound will your here in the emergency department you declined this. You are aware that you may have a blood clot. You should follow-up with her primary care doctor. You are welcome to return at any time here Prescriptions: No Action Combivent Respimat 20-100 mcg/actuation mist 1 puff inhalation QID 30 Days Qty: 4 11RF Rx Instructions: space evenly during waking hours atorvastatin 80 mg tablet 80 mg PO BEDTIME 0RF sertraline 100 mg tablet 100 mg PO DAILY 0RF Rx Instructions: PT TAKES 100 MG AND 50 MG TOGETHER potassium chloride 20 mEq packet 20 meq PO DAILY 0RF magnesium oxide 400 mg (241.3 mg magnesium) tablet 400 mg PO DAILY 0RF loratadine 10 mg tablet 10 mg PO DAILY 0RF levothyroxine 112 mcg tablet 112 mcg PO DAILY 0RF melatonin 5 mg tablet 1 - 2 tab PO BEDTIME PRN (Reason: insomnia) 0RF Xarelto 20 mg tablet 20 mg PO BEDTIME 0RF Invega Sustenna 234 mg/1.5 mL syringe 234 mg IM Q3W 0RF Rx Instructions: REFUSED RECENT DOSES sertraline 50 mg Tablet 50 mg PO DAILY 0RF Rx Instructions: PATIENT TAKES 100 MG AND 50 MG TABLETS TOGETHER fluticasone propionate 50 mcg/actuation [place],Suspension 1 spray INTRANASAL BID 0RF diltiazem HCl [Cardizem CD] 120 mg Capsule,Extended Release 24hr 120 mg PO DAILY Qty: 30 1RF Protocol: Hold for SBP/HR < HOLD for SBP < : 90 HOLD for HR < : 60 risperidone 1 mg Tablet 1 mg PO DAILY Qty: 30 1RF metoprolol tartrate 100 mg tablet 100 mg PO BID 0RF nystatin [Nyamyc] 100,000 unit/gram powder topical 0RF risperidone 0.5 mg tablet 0.5 mg PO BID 0RF benztropine 1 mg tablet 1 mg PO BID 0RF Anoro Ellipta 62.5-25 mcg/actuation blister with device 1 ea inhalation DAILY 0RF albuterol sulfate [ProAir HFA] 90 mcg/actuation HFA aerosol inhaler 2 puff PO Q4H PRN (Reason: dyspnea) Qty: 8.5 11RF Referrals: Physician,Unknown J [Primary Care Provider] - 5 days Stand Alone Forms: Against Medical Advice
== END 2021-11-24 17:13 | disposition left against medical advice (07) ==
PROVIDERS: Emergency Provider Emergency Medicine
DX: M79.605 Pain in left leg (principal); I10 Essential (primary) hypertension; I48.0 Paroxysmal atrial fibrillation; Z95.0 Presence of cardiac pacemaker; Z79.01 Long term (current) use of anticoagulants; Z87.891 Personal history of nicotine dependence
CPT/HCPCS: 99282; 99283

== ENCOUNTER 2021-11-25 16:34 | Emergency (ER) | payer MEDICARE, MEDICAID, SELFPAY ==
--- NOTE | ~2021-11-25 | US_ITS ---
EXAMINATION: US VENOUS ULTRASOUND WITH DOPPLER LOWER EXTREMITY, BILATERAL CLINICAL INFORMATION: Pain. COMPARISON: None TECHNIQUE: Ultrasound of the deep veins is performed from the hip to the calf with compression sonography and color and pulse Doppler assessment. Spectral analysis with color-flow imaging is performed. FINDINGS: RIGHT: There is normal venous compression and respiratory variation and augmented flow. The visualized common femoral vein, superficial femoral vein, profunda femoral vein, popliteal vein, and the trifurcation region shows no evidence of deep venous thrombosis. Within the calf vascular flow seen in the posterior tibial vein on the right but the peroneal vein not well seen. There is no significant popliteal fossa cyst. LEFT: There is normal venous compression and respiratory variation and augmented flow. The visualized common femoral vein, superficial femoral vein, profunda femoral vein, popliteal vein, and the trifurcation region shows no evidence of deep venous thrombosis. Within the calf vascular flow seen within the posterior tibial vein on the left but the peroneal vein is not well seen. There is no significant popliteal fossa cyst. If the patient's symptoms persist, followup ultrasound in 5 days 7 days might be of value to exclude proximal propagation from a non-visualized calf vein. US/US venous duplex LE BI IMPRESSION: No DVT demonstrated in the bilateral lower extremity.
[2021-11-25 18:05] VITALS: BP 134/82; PULSE 60; RESP 16; TEMP 36.6; O2SAT 93; BMI 52.0
[2021-11-25 22:35] LABS: MANUAL DIFF FLAG NO
[2021-11-25 22:36] LABS: Basophils Percent Auto 0.4 % (0-2); Eosinophils Absolute Auto 0.3 X10*3/uL (0.0-0.4); Hemoglobin 11.6 g/dl (12.0-16.0); Imm Gran Abs Auto 0.02 X10*3/uL (0.00-0.03); Imm Gran Pct Auto 0.2 % (0.0-0.4); Lymphocytes Absolute Auto 2.4 X10*3/uL (1.2-4.9); Lymphocytes Percent Auto 28.5 % (20-40); Mean Corpuscular HGB Conc 32.2 g/dl (31.0-35.0); Mean Corpuscular Hemoglobin 29.9 pg (27.0-33.0); Mean Corpuscular Volume 92.8 fL (80.0-98.0); Mean Platelet Volume 9.1 fL (9.4-12.3); Monocytes Absolute Auto 0.9 X10*3/uL (0.1-1.2); Monocytes Percent Auto 10.1 % (2-11); Neutrophils Absolute Auto 4.8 x10*3/uL (2.0-8.3); Neutrophils Percent Auto 56.8 % (45-73); Platelet Count 250 X10*3/uL (160-400); Red Blood Count 3.88 X10*6/uL (4.20-5.50); Red Cell Distribution Width 13.9 % (11.0-16.0); White Blood Count 8.4 X10*3/uL (4.8-10.8)
[2021-11-25 22:54] LABS: B Type Natriuretic Peptide 98 pg/mL (<100)
[2021-11-25 22:55] LABS: Alanine Aminotransferase 21 U/L (0-31); Albumin Level 3.6 g/dL (3.5-5.0); Alkaline Phosphatase 93 U/L (39-117); Anion Gap 10 (12-20); Aspartate Amino Transferase 16 U/L (5-31); Bilirubin Total 0.2 mg/dL (0.0-1.0); Blood Urea Nitrogen 23 mg/dL (9-16); Calcium 9.1 mg/dL (8.4-10.2); Carbon Dioxide 28 mmol/L (22-29); Chloride 107 mmol/L (96-108); Creatinine Clr Calc Pharmacy 94.9; Estimated Glomerular Filt Rate > 60; Glucose Random 98 mg/dL (60-115); Magnesium 1.9 mg/dL (1.6-2.6); Potassium 4.3 mmol/L (3.3-5.1); Sodium 141 mmol/L (135-145); Total Protein 6.7 g/dL (6.5-8.0)
[2021-11-25 23:04] LABS: INTERNATIONAL NORM RATIO 1.7 (0.9-1.1); Prothrombin Time 20.1 SEC (9.9-13.0)
[2021-11-25 23:07] LABS: Partial Thromboplastin Time 48.1 SEC (24.1-38.0)
--- NOTE | 2021-11-26 00:06 | ED.GENADULT ---
HPI - General Adult General Chief complaint: Extremity Problem Stated complaint: legs both numb/ hurt Time Seen by Provider: 11/25/21 18:36 Source: patient Mode of arrival: ambulatory Limitations: no limitations History of Present Illness HPI narrative: 66-year-old female with past medical history of asthma, obesity, COPD, asthma, proximal atrial fibrillation, presents to ED for bilateral leg numbness/tingling and pain for the past 4 days. Patient denies any paralysis of extremities. Patient was seen here yesterday and was informed that she needed ultrasound of lower extremities but she refused and left. Patient denies any paralysis of extremities or inability to walk. Patient denies any facial droop, slurred speech, headache, dizziness, nausea, vomiting, footdrop, chest pain, shortness of breath, fever, or chills. Patient denies any leg swelling, calf pain, ecchymosis, or any recent trauma. Patient presently is asymptomatic and denies any pain, tingling or numbness in lower extremites.. Related Data Home Medications Medication Instructions Recorded Confirmed atorvastatin 80 mg tablet 80 mg PO BEDTIME 07/30/20 08/19/21 levothyroxine 112 mcg tablet 112 mcg PO DAILY 07/30/20 08/19/21 loratadine 10 mg tablet 10 mg PO DAILY 07/30/20 08/19/21 magnesium oxide 400 mg (241.3 mg 400 mg PO DAILY 07/30/20 08/19/21 magnesium) tablet melatonin 5 mg tablet 1 - 2 tab PO BEDTIME PRN 07/30/20 08/19/21 potassium chloride 20 mEq oral 20 meq PO DAILY 07/30/20 08/19/21 packet rivaroxaban 20 mg tablet (Xarelto) 20 mg PO BEDTIME 07/30/20 08/19/21 sertraline 100 mg tablet 100 mg PO DAILY 07/30/20 08/19/21 fluticasone propionate 50 1 spray INTRANASAL BID 10/25/20 08/19/21 mcg/actuation nasal spray,suspension sertraline 50 mg tablet 50 mg PO DAILY 10/25/20 08/19/21 metoprolol tartrate 100 mg tablet 100 mg PO BID 02/11/21 08/19/21 nystatin 100,000 unit/gram topical TOPICAL 04/15/21 08/19/21 powder ([facility]) paliperidone palmitate 234 mg/1.5 234 mg IM Q3W ml 04/15/21 08/19/21 mL intramuscular syringe (Invega Sustenna) benztropine 1 mg tablet 1 mg PO BID 06/17/21 08/19/21 risperidone 0.5 mg tablet 0.5 mg PO BID 06/17/21 08/19/21 umeclidinium 62.5 mcg-vilanterol 1 ea INHALATION DAILY 06/17/21 08/19/21 25 mcg/actuation powdr for inhalation (Anoro Ellipta) Previous Rx's Medication Instructions Recorded diltiazem HCl 120 mg 120 mg PO DAILY #30 cap 10/29/20 capsule,extended release 24 hr (Cardizem CD) risperidone 1 mg tablet 1 mg PO DAILY #30 tab 10/29/20 ipratropium 20 mcg-albuterol 100 1 puff INHALATION QID 30 Days #4 g 03/31/21 mcg/actuation mist for inhalation (Combivent Respimat) albuterol sulfate 90 mcg/actuation 2 puff PO Q4H PRN #8.5 g 06/17/21 aerosol inhaler (ProAir HFA) Allergies Allergy/AdvReac Type Severity Reaction Status Date / Time No Known Allergies Allergy Verified 11/25/21 18:05 Review of Systems Review of Systems: resolved Numbness/tingling of lower extremities and pain that resolved. Yes all other systems are reviewed and are negative PMFSH Past Medical History Medical History Afib Asthma Asthma-COPD overlap syndrome Atrial fib/flutter, transient Diastolic dysfunction HTN (hypertension) Hypothyroid Morbid obesity Nocturnal hypoxemia Nonischemic cardiomyopathy Pacemaker PAF (paroxysmal atrial fibrillation) Pneumonia due to COVID-19 virus Pneumonitis Schizophrenia Schizophrenia Schizophrenia, paranoid Surgical History History of cardiac pacemaker Hx of kidney removal Hx of removal of ovary Family History Family History Father Heart disease Mother Heart disease Social History Social History Household Members: None Housing: Apartment Do you presently have visiting nurse or other home services: Yes Patient Tobacco Use Status: Former Tobacco user Tobacco use type: Cigarette Years Smoked: 10 years Advance Directives: Yes Advance Directives on File: Yes Advance Directives Date on File: 10/30/20 service: No Current occupational status: disabled Physical Exam ED Vital Signs: Vital Signs - 24 hr 11/25/21 18:05 11/26/21 00:46 Temperature 97.9 F Pulse Rate 60 61 Respiratory Rate 16 16 Blood Pressure 134/82 Pulse Oximetry 93 98 BMI result Body Mass Index 52.0 Const General: cooperative, healthy appearing, comfortable, no acute distress, well developed, alert, awake and Physically active Orientation/consciousness: patient oriented x3 HENMT Head: Yes normal to inspection, Yes No palpable skull fracture present, Yes normocephalic, Yes atraumatic and No abrasion Eyes General: appearance normal, both eyes and all related structures Neck Neck: Yes normal visual inspection, Yes full ROM, Yes no lymphadenopathy, Yes no meningeal signs, Yes trachea midline, Yes supple, No anterior neck swelling and No tender Chest Chest palpation & inspection: normal inspection of the chest and normal palpation of entire chest wall Resp Effort & Inspection: normal respiratory effort and able to speak in complete sentences Auscultation: clear to auscultation bilaterally Cardio Jugular venous distension: no JVD Heart sounds: S1 normal heart sound present and S2 normal heart sound present GI Inspection: Yes normal to inspection and No abdominal wall ecchymosis Palpation (GI): Soft to palpation, not firm, nontender, no guarding and not rigid General: No CVA tenderness and Yes no CVA tenderness Back/Spine/Pelvis Back: no CVA tenderness, No CVA tenderness and No back tenderness Skin General skin exam: no rashes or lesions noted and elasticity normal Neuro General: patient oriented x3, gait normal, no meningeal signs and CN's II-XI intact bilaterally Extrem Other: Bilateral lower extremity negative for any swelling, pitting edema, erythema, ecchymosis, deformities, or calf tenderness. Motor/neuro/vascular exam intact. General: Yes normal to inspection and Yes full ROM Psych Appearance: grossly normal, well kempt and not disheveled Course Course Course Narrative: Due to prior provider wanted ultrasound will order ultrasound of lower extremity basic labs to check for any electrolyte deficiencies and BNP. Patient denies any chest pain or shortness of breath. Reevaluation(s) Reevaluation #1: Bilateral lower extremity ultrasound negative for blood clots. Electrolytes normal. BNP negative. Patient walking around the ER without any limp or abnormal gait. Neuro exam intact. NIH score 0. No need for head CT scan. Not suspecting any acute coronary syndrome or [place]. patient denies any chest pain or shortness of breath. No need for any EKG or troponin Time: 00:23 Medical Decision Making MDM Narrative Medical decision making narrative: Leg pain Lab Data Result diagrams: 11/25/21 22:31 11/25/21 22:31 Labs: Lab Results 11/25/21 11/25/21 11/25/21 Range/Units 22:31 22:31 22:31 WBC 8.4 (4.8-10.8) X10*3/uL RBC 3.88 L (4.20-5.50) X10*6/uL Hgb 11.6 L (12.0-16.0) g/dl Hct 36.0 L (37.0-47.0) % MCV 92.8 (80.0-98.0) fL MCH 29.9 (27.0-33.0) pg MCHC 32.2 (31.0-35.0) g/dl RDW 13.9 (11.0-16.0) % Plt Count 250 (160-400) X10*3/uL MPV 9.1 L (9.4-12.3) fL Immature Gran % (Auto) 0.2 (0.0-0.4) % Neut % (Auto) 56.8 (45-73) % Lymph % (Auto) 28.5 (20-40) % [place] % (Auto) 10.1 (2-11) % Eos % (Auto) 4.0 (0-4) % Baso % (Auto) 0.4 (0-2) % Lymph # (Auto) 2.4 (1.2-4.9) X10*3/uL [place] # (Auto) 0.9 (0.1-1.2) X10*3/uL Eos # (Auto) 0.3 (0.0-0.4) X10*3/uL Baso # (Auto) 0.0 (0.0-0.2) X10*3/uL Abs Immat Gran (auto) 0.02 (0.00-0.03) X10*3/uL Absolute Neuts (auto) 4.8 (2.0-8.3) x10*3/uL Absolute Nucleated RBC 0.000 (0.0-0.012) X10*3/uL Nucleated RBC % (auto) 0.0 (0.0-0.2) /100WBC PT (9.9-13.0) SEC INR (0.9-1.1) APTT (24.1-38.0) SEC Sodium 141 (135-145) mmol/L Potassium 4.3 (3.3-5.1) mmol/L Chloride 107 (96-108) mmol/L Carbon Dioxide 28 (22-29) mmol/L Anion Gap 10 L (12-20) BUN 23 H (9-16) mg/dL Creatinine 0.78 (0.5-1.4) mg/dL Estim Creat Clear Calc 94.9 Estimated GFR > 60 Random Glucose 98 (60-115) mg/dL Calcium 9.1 (8.4-10.2) mg/dL Magnesium 1.9 (1.6-2.6) mg/dL Total Bilirubin 0.2 (0.0-1.0) mg/dL AST 16 (5-31) U/L ALT 21 (0-31) U/L Alkaline Phosphatase 93 (39-117) U/L Total Creatine Kinase 96 (26-140) U/L B-Natriuretic Peptide 98 (<100) pg/mL Total Protein 6.7 (6.5-8.0) g/dL Albumin 3.6 (3.5-5.0) g/dL /01/11 Range/Units 22:31 WBC (4.8-10.8) X10*3/uL RBC (4.20-5.50) X10*6/uL Hgb (12.0-16.0) g/dl Hct (37.0-47.0) % MCV (80.0-98.0) fL MCH (27.0-33.0) pg MCHC (31.0-35.0) g/dl RDW (11.0-16.0) % Plt Count (160-400) X10*3/uL MPV (9.4-12.3) fL Immature Gran % (Auto) (0.0-0.4) % Neut % (Auto) (45-73) % Lymph % (Auto) (20-40) % [place] % (Auto) (2-11) % Eos % (Auto) (0-4) % Baso % (Auto) (0-2) % Lymph # (Auto) (1.2-4.9) X10*3/uL [place] # (Auto) (0.1-1.2) X10*3/uL Eos # (Auto) (0.0-0.4) X10*3/uL Baso # (Auto) (0.0-0.2) X10*3/uL Abs Immat Gran (auto) (0.00-0.03) X10*3/uL Absolute Neuts (auto) (2.0-8.3) x10*3/uL Absolute Nucleated RBC (0.0-0.012) X10*3/uL Nucleated RBC % (auto) (0.0-0.2) /100WBC PT 20.1 H (9.9-13.0) SEC INR 1.7 H (0.9-1.1) APTT 48.1 H (24.1-38.0) SEC Sodium (135-145) mmol/L Potassium (3.3-5.1) mmol/L Chloride (96-108) mmol/L Carbon Dioxide (22-29) mmol/L Anion Gap (12-20) BUN (9-16) mg/dL Creatinine (0.5-1.4) mg/dL Estim Creat Clear Calc Estimated GFR Random Glucose (60-115) mg/dL Calcium (8.4-10.2) mg/dL Magnesium (1.6-2.6) mg/dL Total Bilirubin (0.0-1.0) mg/dL AST (5-31) U/L ALT (0-31) U/L Alkaline Phosphatase (39-117) U/L Total Creatine Kinase (26-140) U/L B-Natriuretic Peptide (<100) pg/mL Total Protein (6.5-8.0) g/dL Albumin (3.5-5.0) g/dL Discharge Plan Discharge Clinical Impression: Bilateral leg pain, Paresthesia of both legs Patient Disposition: Home, Self-Care Instructions: Leg Cramps (ED), Paresthesia (ED), Leg Pain (ED) Additional Instructions: Your ultrasound came back negative for any blood clots for a blower came back normal. Please follow-up with your primary care provider. Return to the ED for any increased swelling of lower extremities, calf pain, redness, bluish black discoloration, hotness, coolness, slurred speech, facial droop, dizziness, headache, paralysis of extremities, or any other concerning symptoms. Prescriptions: No Action Combivent Respimat 20-100 mcg/actuation mist 1 puff inhalation QID 30 Days Qty: 4 11RF Rx Instructions: space evenly during waking hours atorvastatin 80 mg tablet 80 mg PO BEDTIME 0RF sertraline 100 mg tablet 100 mg PO DAILY 0RF Rx Instructions: PT TAKES 100 MG AND 50 MG TOGETHER potassium chloride 20 mEq packet 20 meq PO DAILY 0RF magnesium oxide 400 mg (241.3 mg magnesium) tablet 400 mg PO DAILY 0RF loratadine 10 mg tablet 10 mg PO DAILY 0RF levothyroxine 112 mcg tablet 112 mcg PO DAILY 0RF melatonin 5 mg tablet 1 - 2 tab PO BEDTIME PRN (Reason: insomnia) 0RF Xarelto 20 mg tablet 20 mg PO BEDTIME 0RF Invega Sustenna 234 mg/1.5 mL syringe 234 mg IM Q3W 0RF Rx Instructions: REFUSED RECENT DOSES sertraline 50 mg Tablet 50 mg PO DAILY 0RF Rx Instructions: PATIENT TAKES 100 MG AND 50 MG TABLETS TOGETHER fluticasone propionate 50 mcg/actuation [place],Suspension 1 spray INTRANASAL BID 0RF diltiazem HCl [Cardizem CD] 120 mg Capsule,Extended Release 24hr 120 mg PO DAILY Qty: 30 1RF Protocol: Hold for SBP/HR < HOLD for SBP < : 90 HOLD for HR < : 60 risperidone 1 mg Tablet 1 mg PO DAILY Qty: 30 1RF metoprolol tartrate 100 mg tablet 100 mg PO BID 0RF nystatin [Nyamyc] 100,000 unit/gram powder topical 0RF risperidone 0.5 mg tablet 0.5 mg PO BID 0RF benztropine 1 mg tablet 1 mg PO BID 0RF Anoro Ellipta 62.5-25 mcg/actuation blister with device 1 ea inhalation DAILY 0RF albuterol sulfate [ProAir HFA] 90 mcg/actuation HFA aerosol inhaler 2 puff PO Q4H PRN (Reason: dyspnea) Qty: 8.5 11RF Interventions: ED Discharge Assessment Last Done: 11/26/21 00:47 Discharge Date/Time: 11/26/21 00:47 Print Language: [place]ian
[2021-11-26 00:46] VITALS: PULSE 61; RESP 16; O2SAT 98
== END 2021-11-26 00:47 | disposition home or self-care (01) ==
PROVIDERS: Physician Assistant; Emergency Provider Internal Medicine
DX: M79.605 Pain in left leg (principal); M79.604 Pain in right leg; R20.2 Paresthesia of skin; I48.0 Paroxysmal atrial fibrillation; I10 Essential (primary) hypertension; J44.9 Chronic obstructive pulmonary disease, unspecified; Z95.0 Presence of cardiac pacemaker; Z79.899 Other long term (current) drug therapy; Z79.01 Long term (current) use of anticoagulants
CPT/HCPCS: 36415; 80053; 82550; 83735; 83880; 85025; 85610; 85730; 93970; 99284

== ENCOUNTER → 2021-12-18 10:23 | Outpatient (BNVA) | payer MEDICARE, MEDICAID, SELFPAY | PROVIDERS: Visit Provider Hospitalist | DX: G47.33 Obstructive sleep apnea (adult) (pediatric) (principal); J44.9 Chronic obstructive pulmonary disease, unspecified; I51.89 Other ill-defined heart diseases | CPT/HCPCS: 99212 ==

== ENCOUNTER → 2021-12-22 13:19 | Outpatient (BNVA) | payer MEDICARE, MEDICAID, SELFPAY | PROVIDERS: PCP Internal Medicine; Referring Provider Internal Medicine; Visit Provider Internal Medicine | DX: I48.0 Paroxysmal atrial fibrillation (principal); I42.8 Other cardiomyopathies; G47.33 Obstructive sleep apnea (adult) (pediatric); E66.01 Morbid (severe) obesity due to excess calories; Z68.43 Body mass index [BMI] 50.0-59.9, adult; Z79.899 Other long term (current) drug therapy; Z45.018 Encounter for adjustment and management of other part of cardiac pacemaker | CPT/HCPCS: 93280; 99212 ==

== ENCOUNTER 2022-01-10 22:54 | Observation (INO) | payer MEDICARE, MEDICAID, SELFPAY ==
--- NOTE | ~2022-01-10 | XR_ITS ---
EXAMINATION: XR CHEST CLINICAL INFORMATION: Tachycardia COMPARISON: 04/29/2021 TECHNIQUE: Frontal view of the chest was obtained. FINDINGS: Left chest wall pacer is unchanged. Cardiac leads overlie the chest. The lungs are well expanded. There is no focal consolidation, edema, or effusion. No pneumothorax. The cardiomediastinal silhouette is within normal limits. No acute osseous abnormality. XR/XR chest 1V IMPRESSION: No acute pulmonary finding.
[2022-01-10 23:06] VITALS: BP 131/89; PULSE 119; RESP 19; TEMP 36.6; O2SAT 98; BMI 44.7
[2022-01-10 23:09] VITALS: PULSE 60
--- NOTE | 2022-01-10 23:09 | ECG_ITS ---
Test Reason : TACHYCARDIA Blood Pressure : / mmHG Vent. Rate : 060 BPM Atrial Rate : 060 BPM P-R Int : 200 ms QRS Dur : 088 ms QT Int : 416 ms P-R-T Axes : -03 -30 054 degrees QTc Int : 416 ms Atrial-paced rhythm Left axis deviation Abnormal ECG When compared with ECG of 29-APR-2021 16:33, No significant change was found Referred By: Generic ED Physician Electronically Signed By:LISSETTE EDMONDS
--- NOTE | 2022-01-10 23:35 | PC.NURSE ---
EKG completed in triage by N-Terry
--- NOTE | 2022-01-10 23:51 | ED.CHESTPAIN ---
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 Patient denied any chest pain had mild shortness of breath patient had pacemaker checked on 12/12 with [employer] more than 9 years with normal device function. Patient denies any sore throat, fever/ chills Related Data Home Medications Medication Instructions Recorded Confirmed atorvastatin 80 mg tablet 80 mg PO BEDTIME 07/30/20 12/22/21 levothyroxine 112 mcg tablet 112 mcg PO DAILY 07/30/20 12/22/21 loratadine 10 mg tablet 10 mg PO DAILY 07/30/20 12/22/21 magnesium oxide 400 mg (241.3 mg 400 mg PO DAILY 07/30/20 12/22/21 magnesium) tablet melatonin 5 mg tablet 1 - 2 tab PO BEDTIME PRN 07/30/20 12/22/21 potassium chloride 20 mEq oral 20 meq PO DAILY 07/30/20 12/22/21 packet rivaroxaban 20 mg tablet (Xarelto) 20 mg PO BEDTIME 07/30/20 12/22/21 sertraline 100 mg tablet 100 mg PO DAILY 07/30/20 12/22/21 fluticasone propionate 50 1 spray INTRANASAL BID 10/25/20 12/22/21 mcg/actuation nasal spray,suspension sertraline 50 mg tablet 50 mg PO DAILY 10/25/20 12/22/21 metoprolol tartrate 100 mg tablet 100 mg PO BID 02/11/21 12/22/21 nystatin 100,000 unit/gram topical TOPICAL 04/15/21 12/22/21 powder ([facility]) paliperidone palmitate 234 mg/1.5 234 mg IM Q3W ml 04/15/21 12/22/21 mL intramuscular syringe ([facility]) benztropine 1 mg tablet 1 mg PO BID 06/17/21 12/22/21 risperidone 0.5 mg tablet 0.5 mg PO BID 06/17/21 12/22/21 ergocalciferol (vitamin D2) 1,250 1,250 mcg PO QWEEK 12/18/21 12/22/21 mcg (50,000 unit) capsule (Vitamin D2) ketorolac 0.5 % eye drops drp OPHTHALMIC (EYE) 12/18/21 12/22/21 risperidone 1 mg tablet 1 mg PO BID tab 12/18/21 12/22/21 Previous Rx's Medication Instructions Recorded diltiazem HCl 120 mg 120 mg PO DAILY #30 cap 10/29/20 capsule,extended release 24 hr (Cardizem CD) albuterol sulfate 90 mcg/actuation 2 puff PO Q4H PRN #8.5 g 06/17/21 aerosol inhaler (ProAir HFA) Allergies Allergy/AdvReac Type Severity Reaction Status Date / Time No Known Allergies Allergy Verified 01/10/22 23:08 Review of Systems Review of Systems: Yes all other systems are reviewed and are negative [facility] Past Medical History Medical History Afib Asthma Asthma-COPD overlap syndrome Atrial fib/flutter, transient Diastolic dysfunction HTN (hypertension) Hypothyroid Morbid obesity Nocturnal hypoxemia Nonischemic cardiomyopathy Pacemaker PAF (paroxysmal atrial fibrillation) Pneumonia due to COVID-19 virus Pneumonitis Schizophrenia Schizophrenia Schizophrenia, paranoid Surgical History History of cardiac pacemaker Hx of kidney removal Hx of removal of ovary Family History Family History Father Heart disease Mother Heart disease Social History Social History Household Members: None Housing: Apartment Do you presently have visiting nurse or other home services: Yes Patient Tobacco Use Status: Former Tobacco user Tobacco use type: Cigarette Years Smoked: 10 years Advance Directives: Yes Advance Directives on File: Yes Advance Directives Date on File: 10/30/20 service: No Current occupational status: disabled Physical Exam Vital Signs: Vital Signs: Last Vital Signs Temp 98 F 01/10/22 23:06 Pulse 60 01/11/22 00:57 Resp 18 01/11/22 00:57 BP 124/68 01/11/22 00:57 Pulse Ox 95 01/11/22 00:57 BMI result Body Mass Index 44.7 Appearance: Alert. Oriented X3. No acute distress. Eyes: no pallor or icterus ENT: Pharynx normal. Oral Mucosa moist Neck: Normal inspection. Neck supple. no carotid bruit CVS: Normal heart rate and rhythm. Pulses normal. no murmur rub or gallop Respiratory: No respiratory distress. Equal air entry bilateral, no wheezing/rales/rhonchi Abdomen: Soft and nontender. Bowel sounds are present, no mass palpable, no CVA tenderness Skin: Skin warm and dry. Normal skin color. Normal skin turgor. Extremities: No lower extremity edema. No calf tenderness Neuro: Oriented X 3. No motor deficit. MDM - Chest Pain MDM Narrative Medical decision making narrative: patient with left jaw pain with palpitation etiology not very clear EKG without ischemic changes patient has a heart score of 4 admit patient for further evaluation patient denies any pain after arrival in the ER threat monitoring analyst showed paced rhythm when patient arrived heart rate was 119. Patient is on [employer] Medical Records Data Attestation: I reviewed the patient's medical records. Lab Data Attestation: I reviewed the patient's lab results. Result diagrams: 01/11/22 00:12 01/11/22 00:12 Labs: Lab Results 01/11/22 01/11/22 01/11/22 Range/Units 00:12 00:12 00:12 WBC 8.5 (4.8-10.8) X10*3/uL RBC 4.29 (4.20-5.50) X10*6/uL Hgb 12.8 (12.0-16.0) g/dl Hct 38.7 (37.0-47.0) % MCV 90.2 (80.0-98.0) fL MCH 29.8 (27.0-33.0) pg MCHC 33.1 (31.0-35.0) g/dl RDW 13.6 (11.0-16.0) % Plt Count 296 (160-400) X10*3/uL MPV 9.0 L (9.4-12.3) fL Immature Gran % (Auto) 0.2 (0.0-0.4) % Neut % (Auto) 52.8 (45-73) % Lymph % (Auto) 35.6 (20-40) % [place] % (Auto) 8.1 (2-11) % Eos % (Auto) 2.9 (0-4) % Baso % (Auto) 0.4 (0-2) % Lymph # (Auto) 3.0 (1.2-4.9) X10*3/uL [place] # (Auto) 0.7 (0.1-1.2) X10*3/uL Eos # (Auto) 0.3 (0.0-0.4) X10*3/uL Baso # (Auto) 0.0 (0.0-0.2) X10*3/uL Abs Immat Gran (auto) 0.02 (0.00-0.03) X10*3/uL Absolute Neuts (auto) 4.5 (2.0-8.3) x10*3/uL Absolute Nucleated RBC 0.000 (0.0-0.012) X10*3/uL Nucleated RBC % (auto) 0.0 (0.0-0.2) /100WBC Sodium 138 (135-145) mmol/L Potassium 4.1 (3.3-5.1) mmol/L Chloride 103 (96-108) mmol/L Carbon Dioxide 26 (22-29) mmol/L Anion Gap 13 (12-20) BUN 20 H (9-16) mg/dL Creatinine 0.73 (0.5-1.4) mg/dL Estim Creat Clear Calc 106.3 Estimated GFR > 60 Random Glucose 116 H (60-115) mg/dL Calcium 9.2 (8.4-10.2) mg/dL Total Bilirubin < 0.2 (0.0-1.0) mg/dL AST 21 (5-31) U/L ALT 20 (0-31) U/L Alkaline Phosphatase 92 (39-117) U/L Troponin I High Sens < 3.5 (<3.5-17.0) ng/L Total Protein 6.8 (6.5-8.0) g/dL Albumin 3.5 (3.5-5.0) g/dL COVID-19 (VIC) (Negative) COVID-19 Clin Com 01/11/22 Range/Units 00:12 WBC (4.8-10.8) X10*3/uL RBC (4.20-5.50) X10*6/uL Hgb (12.0-16.0) g/dl Hct (37.0-47.0) % MCV (80.0-98.0) fL MCH (27.0-33.0) pg MCHC (31.0-35.0) g/dl RDW (11.0-16.0) % Plt Count (160-400) X10*3/uL MPV (9.4-12.3) fL Immature Gran % (Auto) (0.0-0.4) % Neut % (Auto) (45-73) % Lymph % (Auto) (20-40) % [place] % (Auto) (2-11) % Eos % (Auto) (0-4) % Baso % (Auto) (0-2) % Lymph # (Auto) (1.2-4.9) X10*3/uL [place] # (Auto) (0.1-1.2) X10*3/uL Eos # (Auto) (0.0-0.4) X10*3/uL Baso # (Auto) (0.0-0.2) X10*3/uL Abs Immat Gran (auto) (0.00-0.03) X10*3/uL Absolute Neuts (auto) (2.0-8.3) x10*3/uL Absolute Nucleated RBC (0.0-0.012) X10*3/uL Nucleated RBC % (auto) (0.0-0.2) /100WBC Sodium (135-145) mmol/L Potassium (3.3-5.1) mmol/L Chloride (96-108) mmol/L Carbon Dioxide (22-29) mmol/L Anion Gap (12-20) BUN (9-16) mg/dL Creatinine (0.5-1.4) mg/dL Estim Creat Clear Calc Estimated GFR Random Glucose (60-115) mg/dL Calcium (8.4-10.2) mg/dL Total Bilirubin (0.0-1.0) mg/dL AST (5-31) U/L ALT (0-31) U/L Alkaline Phosphatase (39-117) U/L Troponin I High Sens (<3.5-17.0) ng/L Total Protein (6.5-8.0) g/dL Albumin (3.5-5.0) g/dL COVID-19 (VIC) Negative (Negative) COVID-19 Clin Com See Note ECG Data ECG #1: Attestation: I personally reviewed and interpreted this ECG as follows: Interpretation: atrial paced rhythm left axis deviation heart rate 60 beats per minute no acute ST T wave changes no acute ischemia Scores Heart Score History: -1- moderately suspicious ECG: -0- normal Age: -2- > or = 65 Risk factory: -1- 1 or 2 risk factors Troponin: -0- < or = normal limit Score: 4 Risk: 16.6% Discharge Plan Discharge Clinical Impression: ACS (acute coronary syndrome) Patient Disposition: Admitted As Inpatient
[2022-01-11 00:19] LABS: Basophils Percent Auto 0.4 % (0-2); Eosinophils Absolute Auto 0.3 X10*3/uL (0.0-0.4); Eosinophils Percent Auto 2.9 % (0-4); Hematocrit 38.7 % (37.0-47.0); Hemoglobin 12.8 g/dl (12.0-16.0); Imm Gran Abs Auto 0.02 X10*3/uL (0.00-0.03); Imm Gran Pct Auto 0.2 % (0.0-0.4); Lymphocytes Percent Auto 35.6 % (20-40); MANUAL DIFF FLAG NO; Mean Corpuscular HGB Conc 33.1 g/dl (31.0-35.0); Mean Corpuscular Hemoglobin 29.8 pg (27.0-33.0); Mean Corpuscular Volume 90.2 fL (80.0-98.0); Monocytes Absolute Auto 0.7 X10*3/uL (0.1-1.2); Monocytes Percent Auto 8.1 % (2-11); Neutrophils Absolute Auto 4.5 x10*3/uL (2.0-8.3); Neutrophils Percent Auto 52.8 % (45-73); Platelet Count 296 X10*3/uL (160-400); Red Blood Count 4.29 X10*6/uL (4.20-5.50); Red Cell Distribution Width 13.6 % (11.0-16.0); White Blood Count 8.5 X10*3/uL (4.8-10.8)
[2022-01-11 00:32] LABS: COVID-19 Test Negative (Negative)
[2022-01-11 00:44] LABS: Troponin-I High Sensitivity < 3.5 ng/L (<3.5-17.0)
--- NOTE | 2022-01-11 00:53 | PC.NURSE ---
Patient ambulated to bathroom without assistance with steady gait, placed self back on stretcher and placed back on environmental research scientist. All safety maintained.
[2022-01-11 00:57] VITALS: BP 124/68; PULSE 60; RESP 18; O2SAT 95
[2022-01-11 00:59] LABS: Alanine Aminotransferase 20 U/L (0-31); Albumin Level 3.5 g/dL (3.5-5.0); Alkaline Phosphatase 92 U/L (39-117); Anion Gap 13 (12-20); Aspartate Amino Transferase 21 U/L (5-31); Bilirubin Total < 0.2 mg/dL (0.0-1.0); Blood Urea Nitrogen 20 mg/dL (9-16); Calcium 9.2 mg/dL (8.4-10.2); Carbon Dioxide 26 mmol/L (22-29); Chloride 103 mmol/L (96-108); Creatinine Clr Calc Pharmacy 106.3; Estimated Glomerular Filt Rate > 60; Glucose Random 116 mg/dL (60-115); Potassium 4.1 mmol/L (3.3-5.1); Sodium 138 mmol/L (135-145); Total Protein 6.8 g/dL (6.5-8.0)
[2022-01-11 01:14] VITALS: PULSE 62
--- NOTE | 2022-01-11 02:28 | P.HPHOSP_ITS ---
History of Present Illness Date of Service: 01/11/22 Chief Complaint: palpitation 66-year-old female with a past medical history of hypertension, nonischemic cardiomyopathy, obesity, schizophrenia, history of atrial fibrillation/ tachy- alicia syndrome status post pacemaker on Xarelto; presented to the hospital today with a chief complaint of dizziness. Patient reported that yesterday she felt dizzy / lightheaded followed by she felt some discomfort in her chest and then pain in the throat/ GI. Followed by she felt palpitations; mentions pain or she tries to move around she fells dizziness. Denies any room spinning. Hence presented to the ER for further evaluation. Denies any fever chills cough Or sputum production. Denies any GI symptoms. At the time of my interview denies any jaw pain. Review of all other systems is negative except mentioned above ER course: Per ER team patient's EKG was nonischemic; troponin was negative; given moderate LAINEY score. Decided to admit to the hospital for cardiology evaluation. [facility] Medical History Afib Asthma Asthma-COPD overlap syndrome Atrial fib/flutter, transient Diastolic dysfunction HTN (hypertension) Hypothyroid Morbid obesity Nocturnal hypoxemia Nonischemic cardiomyopathy Pacemaker PAF (paroxysmal atrial fibrillation) Pneumonia due to COVID-19 virus Pneumonitis Schizophrenia Schizophrenia Schizophrenia, paranoid Family History Father Heart disease Mother Heart disease Surgical History History of cardiac pacemaker Hx of kidney removal Hx of removal of ovary Social History Household Members: None Housing: Apartment Do you presently have visiting nurse or other home services: Yes Patient Tobacco Use Status: Former Tobacco user Tobacco use type: Cigarette Years Smoked: 10 years Advance Directives: Yes Advance Directives on File: Yes Advance Directives Date on File: 10/30/20 service: No Current occupational status: disabled Meds Allergies Allergy/AdvReac Type Severity Reaction Status Date / Time No Known Allergies Allergy Verified 01/10/22 23:08 Home Medications Medication Instructions Recorded Confirmed Last Taken Type atorvastatin 80 mg tablet 80 mg PO BEDTIME 07/30/20 12/22/21 Unknown History levothyroxine 112 mcg tablet 112 mcg PO DAILY 07/30/20 12/22/21 Unknown History loratadine 10 mg tablet 10 mg PO DAILY 07/30/20 12/22/21 Unknown History magnesium oxide 400 mg (241.3 mg 400 mg PO DAILY 07/30/20 12/22/21 Unknown History magnesium) tablet melatonin 5 mg tablet 1 - 2 tab PO BEDTIME PRN 07/30/20 12/22/21 Unknown History potassium chloride 20 mEq oral 20 meq PO DAILY 07/30/20 12/22/21 Unknown History packet rivaroxaban 20 mg tablet (Xarelto) 20 mg PO BEDTIME 07/30/20 12/22/21 Unknown History sertraline 100 mg tablet 100 mg PO DAILY 07/30/20 12/22/21 Unknown History fluticasone propionate 50 1 spray INTRANASAL BID 10/25/20 12/22/21 Unknown History mcg/actuation nasal spray,suspension sertraline 50 mg tablet 50 mg PO DAILY 10/25/20 12/22/21 Unknown History metoprolol tartrate 100 mg tablet 100 mg PO BID 02/11/21 12/22/21 Unknown History nystatin 100,000 unit/gram topical TOPICAL 04/15/21 12/22/21 Unknown History powder ([facility]) paliperidone palmitate 234 mg/1.5 234 mg IM Q3W ml 04/15/21 12/22/21 Unknown History mL intramuscular syringe ([facility]) benztropine 1 mg tablet 1 mg PO BID 06/17/21 12/22/21 Unknown History risperidone 0.5 mg tablet 0.5 mg PO BID 06/17/21 12/22/21 Unknown History ergocalciferol (vitamin D2) 1,250 1,250 mcg PO QWEEK 12/18/21 12/22/21 Unknown History mcg (50,000 unit) capsule (Vitamin D2) ketorolac 0.5 % eye drops drp OPHTHALMIC (EYE) 12/18/21 12/22/21 Unknown History risperidone 1 mg tablet 1 mg PO BID tab 12/18/21 12/22/21 Unknown History Physical Exam Vital Signs and Narrative: Vital Signs: Last Vital Signs Temp 98 F 01/10/22 23:06 Pulse 60 01/11/22 00:57 Resp 18 01/11/22 00:57 BP 124/68 01/11/22 00:57 Pulse Ox 95 01/11/22 00:57 BMI result Body Mass Index 44.7 Gen: Appears be in no acute distress HEENT: NCAT, Moist mucosa. Pulmonary: Vesicular breath sounds, fair air entry CVS: Normal S1-S2 Abdomen: BS+, Soft, Nontender Extremities: Warm well perfused Neuro: Alert and awake. Results Labs CBC and Chem 7: 01/11/22 00:12 01/11/22 00:12 Labs: Laboratory Results - last 24 hr 01/11/22 01/11/22 01/11/22 00:12 00:12 00:12 MCV 90.2 MCH 29.8 MCHC 33.1 RDW 13.6 Plt Count 296 MPV 9.0 L Immature Gran % (Auto) 0.2 Neut % (Auto) 52.8 Lymph % (Auto) 35.6 [place] % (Auto) 8.1 Eos % (Auto) 2.9 Baso % (Auto) 0.4 Lymph # (Auto) 3.0 [place] # (Auto) 0.7 Eos # (Auto) 0.3 Baso # (Auto) 0.0 Abs Immat Gran (auto) 0.02 Absolute Neuts (auto) 4.5 Absolute Nucleated RBC 0.000 Nucleated RBC % (auto) 0.0 Anion Gap 13 Estim Creat Clear Calc 106.3 Estimated GFR > 60 Random Glucose 116 H Calcium 9.2 Total Bilirubin < 0.2 AST 21 ALT 20 Alkaline Phosphatase 92 Troponin I High Sens < 3.5 Total Protein 6.8 Albumin 3.5 COVID-19 (VIC) COVID-19 Clin Com 01/11/22 00:12 MCV MCH MCHC RDW Plt Count MPV Immature Gran % (Auto) Neut % (Auto) Lymph % (Auto) [place] % (Auto) Eos % (Auto) Baso % (Auto) Lymph # (Auto) [place] # (Auto) Eos # (Auto) Baso # (Auto) Abs Immat Gran (auto) Absolute Neuts (auto) Absolute Nucleated RBC Nucleated RBC % (auto) Anion Gap Estim Creat Clear Calc Estimated GFR Random Glucose Calcium Total Bilirubin AST ALT Alkaline Phosphatase Troponin I High Sens Total Protein Albumin COVID-19 (VIC) Negative COVID-19 Clin Com See Note Imaging Radiologist's Impressions: Impressions Chest X-Ray 01/10/22 23:55 IMPRESSION: No acute pulmonary finding. Assessment and Plan (1) ACS (acute coronary syndrome): Status: Acute Plan 66-year-old female with a past medical history of hypertension, nonischemic cardiomyopathy, obesity, schizophrenia, history of atrial fibrillation/ tachy- alicia syndrome status post pacemaker on Xarelto; presented to the hospital today with a chief complaint of pain in her throat / Jaw pain. concern for ACS Equivalent. Admitted to rule out ACS. Dizziness/ jaw pain: EKG nonischemic. Initial troponin negative. repeat troponin pending Telemetry Sublingual nitroglycerin p.r.n. Cardiology consult Patient currently asymptomatic Atrial fibrillation/ tachy-alicia syndrome: Currently rate controlled. Continue home Xarelto, Metoprolol. History of schizophrenia: risperidone, sertraline, benztropine continued history of asthma: Stable for all other chronic conditions, home medications will be continued -pending med rec DVT prophylaxis: Lovenox Code status: Full code Quality Stroke Does the patient have a stroke diagnosis?: No VTE Prior VTE?: No VTE Risk Level:: Medical - moderate - high VTE Device Contraindication: Treatment Not Indicated VTE Drug Contraindication: N/A - Med Ordered
[2022-01-11 02:43] VITALS: BP 119/65; PULSE 60; RESP 15; TEMP 36.5; O2SAT 95
[2022-01-11 03:10] LABS: Troponin-I High Sensitivity 3.5 ng/L (<3.5-17.0)
[2022-01-11 05:33] VITALS: BP 113/60; PULSE 60; RESP 12; TEMP 36.6; O2SAT 96
[2022-01-11 07:02] LABS: MANUAL DIFF FLAG NO
[2022-01-11 07:17] LABS: Basophils Percent Auto 0.4 % (0-2); Eosinophils Absolute Auto 0.2 X10*3/uL (0.0-0.4); Eosinophils Percent Auto 3.5 % (0-4); Hematocrit 38.9 % (37.0-47.0); Hemoglobin 12.6 g/dl (12.0-16.0); Imm Gran Abs Auto 0.02 X10*3/uL (0.00-0.03); Imm Gran Pct Auto 0.3 % (0.0-0.4); Lymphocytes Absolute Auto 2.4 X10*3/uL (1.2-4.9); Lymphocytes Percent Auto 35.4 % (20-40); Mean Corpuscular HGB Conc 32.4 g/dl (31.0-35.0); Mean Corpuscular Hemoglobin 29.6 pg (27.0-33.0); Mean Corpuscular Volume 91.5 fL (80.0-98.0); Mean Platelet Volume 9.2 fL (9.4-12.3); Monocytes Absolute Auto 0.7 X10*3/uL (0.1-1.2); Monocytes Percent Auto 10.1 % (2-11); Neutrophils Absolute Auto 3.4 x10*3/uL (2.0-8.3); Neutrophils Percent Auto 50.3 % (45-73); Platelet Count 301 X10*3/uL (160-400); Red Blood Count 4.25 X10*6/uL (4.20-5.50); Red Cell Distribution Width 13.7 % (11.0-16.0); White Blood Count 6.8 X10*3/uL (4.8-10.8)
[2022-01-11 07:30] LABS: Anion Gap 10 (12-20); Blood Urea Nitrogen 18 mg/dL (9-16); Calcium 9.4 mg/dL (8.4-10.2); Carbon Dioxide 29 mmol/L (22-29); Chloride 104 mmol/L (96-108); Creatinine Clr Calc Pharmacy 103.4; Estimated Glomerular Filt Rate > 60; Glucose Random 100 mg/dL (60-115); Potassium 4.5 mmol/L (3.3-5.1); Sodium 138 mmol/L (135-145)
[2022-01-11] MEDS: 0.9 % Sodium Chloride Flush 3 ML SYRINGE IVFLUSH (09:33)
--- NOTE | 2022-01-11 09:47 | PHA.MEDREC ---
Pharmacy Consult ? Medication Reconciliation Pharmacy has completed the medication reconciliation. Spoke with patient in the ED who knew all of her medications. She reports getting the Invega sustenna injection last week on 01/06 or 01/07. She reports not being on lisinopril (also not on per cardiolgy note) or Omeprazole. Patient last took medications yesterday
--- NOTE | 2022-01-11 10:35 | MHC.CM.PN ---
PT REPORTS SHE LIVES ALONE AND IS ACTIVE WITH [facility] [employer]TER SHE REPORTS SHE USES A CANE PRN AND REQUIRES NO OTHER DME PT REPORTS SHE IS COVID-19 VACCINATED SHE IS UNSURE OF THE NAME OF HER PCP HCP ON FILE OBS NOTICE DELIVERED,. COPY SENT TO MEDICAL RECORDS PT WILL DC HOME WITH RESUMPTION OF SERVICES SHE WILL NEED A CHAIR VAN
[2022-01-11] MEDS: Loratadine 10 MG TABLET PO (10:44)
[2022-01-11] MEDS: Benztropine Mesylate 1 MG TABLET PO (10:44)
[2022-01-11] MEDS: Magnesium Oxide 400 MG TABLET PO (10:44)
[2022-01-11] MEDS: Sertraline HCL 100 MG TABLET PO (10:44)
[2022-01-11] MEDS: Ergocalciferol (Vitamin D2) 1,250 MCG CAPSULE 1250 MCG PO (10:44)
[2022-01-11] MEDS: Potassium Chloride Packet 20 MEQ PACKET PO (10:45)
[2022-01-11] MEDS: Sertraline HCL 50 MG TABLET PO (10:45)
[2022-01-11] MEDS: dilTIAZem HCL CD 120 MG CAP.ER.DEG PO (10:45)
[2022-01-11] MEDS: Multivitamin TABLET 1 TAB PO (10:45)
[2022-01-11] MEDS: Metoprolol Tartrate 100 MG TABLET PO (10:45)
[2022-01-11 10:52] VITALS: BP 160/70; PULSE 60; RESP 16; O2SAT 98
--- NOTE | 2022-01-11 10:58 | P.CONCA_ITS ---
History of Present Illness History of Present Illness Date of Service: 01/11/22 Chief complaint: Palpitation Narrative: This is a cardiology consultation regarding various symptoms. Patient is known to us. She has a history of paroxysmal atrial fibrillation and also has a permanent pacemaker. She has got hypertension, obesity. History of cardiomyopathy with recovered LVEF. Various symptoms on presentation. She states that she has been feeling dizzy. She states she has had palpitations for a long time intermittently. However in the recent pacemaker checks we have not seen any recurrent atrial fibrillation. She also had a discomfort in the neck area and then felt in the chest for some time and then it resolved completely. At this point in time, she is back to normal self. Review of Systems Review of Systems: Yes all other systems are reviewed and are negative Constitutional: Constitutional: Reports as per HPI Eyes: Eyes: Reports as per HPI ENT: Reports as per HPI Cardiovascular: Cardiovascular: Reports as per HPI, Denies acrocyanosis, Denies cool extremities, Reports chest pain, Denies leg edema, Reports lightheadedness, Reports palpitations and Denies dyspnea Respiratory: Respiratory: Reports as per HPI, Reports no additional respirat ory complaints and Denies dyspnea Gastrointestinal: Gastrointestinal: Reports as per HPI and Reports no additional gastrointestinal complaints Genitourinary: Genitourinary: Reports as per HPI Musculoskeletal: Musculoskeletal: Reports no additional musculoskeletal complaints and Reports as per HPI Integumentary/Breasts: Skin/Breast: Reports system reviewed and no additional complaints, except as docu Neurologic: Reports system reviewed and no additional complaints, except as documented and Reports as per HPI Psychiatric: Psychiatric: Reports no additional psychiatric complaints and Reports as per HPI Endocrine: Endocrine: Reports no additional endocrine complaints, Reports as per HPI and Reports palpitations Hematologic/Lymphatic: Hematologic/Lymphatic: Reports no additional hematol ogic/lymphatic complaints and Reports as per HPI Allergic/Immunologic: Allergic/Immunologic: Reports no additional allergic/immunologic complaints and Reports as per HPI PMF Past Medical History Medical History Afib Asthma Asthma-COPD overlap syndrome Atrial fib/flutter, transient Diastolic dysfunction HTN (hypertension) Hypothyroid Morbid obesity Nocturnal hypoxemia Nonischemic cardiomyopathy Pacemaker PAF (paroxysmal atrial fibrillation) Pneumonia due to COVID-19 virus Pneumonitis Schizophrenia Schizophrenia Schizophrenia, paranoid Family History Family History Father Heart disease Mother Heart disease Surgical History Surgical History History of cardiac pacemaker Hx of kidney removal Hx of removal of ovary Social History Social History Household Members: None Housing: Apartment Do you presently have visiting nurse or other home services: Yes Patient Tobacco Use Status: Former Tobacco user Tobacco use type: Cigarette Years Smoked: 10 years Advance Directives: Yes Advance Directives on File: Yes Advance Directives Date on File: 10/30/20 service: No Current occupational status: disabled Meds Allergies Allergy/AdvReac Type Severity Reaction Status Date / Time No Known Allergies Allergy Verified 01/10/22 23:08 Active Medications: Current Medications Acetaminophen (Acetaminophen 325 Mg Tablet) 650 mg PO Q6H PRN PRN Reason: Pain, Mild (Pain Scale 1-3) Acetaminophen (Acetaminophen 325 Mg Tablet) 650 mg PO Q4H PRN PRN Reason: fever/headache/pain Albuterol Sulfate (Albuterol Sulfate 90 Mcg 8 Gm Inhaler) 2 puff INHALE Q4H PRN PRN Reason: dyspnea Albuterol/Ipratropium (Albuterol/Iprat 2.5/0.5mg 3 Ml Ampul.Neb) 3 ml INHALE RQ6H [facility] Atorvastatin Calcium (Atorvastatin Calcium 80 Mg Tablet) 80 mg PO BEDTIME [facility] Benztropine Mesylate (Benztropine Mesylate 1 Mg Tablet) 1 mg PO BID [facility] Last Admin: 01/11/22 10:44 Dose: 1 mg Documented by: Diltiazem HCl (Diltiazem Hcl Cd 120 Mg Cap.Er.Deg) 120 mg PO DAILY [facility]; Protocol Last Admin: 01/11/22 10:45 Dose: 120 mg Documented by: Ergocalciferol (Ergocalciferol (Vitamin D2) 1,250 Mcg Capsule) 1,250 mcg PO ALLRED@0900 [facility] Last Admin: 01/11/22 10:44 Dose: 1,250 mcg Documented by: Fluticasone Propionate (Fluticasone Propionate Nasal 16 Gm [place]) 1 spray NOSTRIL-B BID PRN PRN Reason: Allergy Symptoms Levothyroxine Sodium (Levothyroxine Sodium 112 Mcg Tablet) 112 mcg PO DAILY@0630 [facility] Loratadine (Loratadine 10 Mg Tablet) 10 mg PO DAILY [facility] Last Admin: 01/11/22 10:44 Dose: 10 mg Documented by: Magnesium Oxide (Magnesium Oxide 400 Mg Tablet) 400 mg PO DAILY [facility] Last Admin: 01/11/22 10:44 Dose: 400 mg Documented by: Melatonin (Melatonin 3 Mg Tablet) 6 mg PO BEDTIME PRN PRN Reason: Insomnia Metoprolol Tartrate (Metoprolol Tartrate 100 Mg Tablet) 100 mg PO BID [facility]; Protocol Last Admin: 01/11/22 10:45 Dose: 100 mg Documented by: Multivitamins/Vitamin C (Multivitamin Tablet) 1 tab PO DAILY [facility] Last Admin: 01/11/22 10:45 Dose: 1 tab Documented by: Nitroglycerin (Nitroglycerin 0.4 Mg Tab.Subl) 0.4 mg SUBLINGUAL Q5MX3 PRN PRN Reason: Chest Pain Nystatin/Triamcinolone Acetonide (Nystatin/Triamcinolone Cream 15 Gm Tube) 1 appl TOPICAL BID [facility]; Protocol Last Admin: 01/11/22 10:46 Dose: Not Given Documented by: Ondansetron HCl (Ondansetron Odt 4 Mg Tab.Rapdis) 4 mg TRANSLINGU Q12H PRN PRN Reason: nausea Paliperidone Palmitate (Paliperidone Palmitate 234 Mg/1.5 Ml Syringe) 234 mg IM Q3W [facility] Pharmacy Consult (Consult Rx Perform Med Rec) 1 each MISCELLANE ONCE PRN PRN Reason: Consult order Pharmacy Consult (Consult Rx Perform Med Rec) 1 each MISCELLANE ONCE PRN PRN Reason: Consult order Potassium Chloride (Potassium Chloride Packet 20 Meq Packet) 20 meq PO DAILY [facility] Last Admin: 01/11/22 10:45 Dose: 20 meq Documented by: Risperidone (Risperidone 1 Mg Tablet) 1 mg PO BEDTIME [facility] Risperidone (Risperidone 1 Mg Tablet) 1 mg PO BID@0800,1400 [facility] Rivaroxaban (Rivaroxaban 20 Mg Tablet) 20 mg PO DAILY@1700 [facility] Senna (Sennosides 8.6 Mg Tablet) 17.2 mg PO BEDTIME PRN PRN Reason: Constipation Sertraline HCl (Sertraline Hcl 50 Mg Tablet) 50 mg PO DAILY [facility] Last Admin: 01/11/22 10:45 Dose: 50 mg Documented by: Sertraline HCl (Sertraline Hcl 100 Mg Tablet) 100 mg PO DAILY [facility] Last Admin: 01/11/22 10:44 Dose: 100 mg Documented by: Sodium Chloride (0.9 % Sodium Chloride Flush 3 Ml Syringe) 3 ml IVFLUSH QSHIFT [facility] Last Admin: 01/11/22 09:33 Dose: 3 ml Documented by: Home Medications Medication Instructions Recorded Confirmed Last Taken Type atorvastatin 80 mg tablet 80 mg PO BEDTIME 07/30/20 01/11/22 01/10/22 History levothyroxine 112 mcg tablet 112 mcg PO DAILY@0630 07/30/20 01/11/22 01/10/22 History loratadine 10 mg tablet 10 mg PO DAILY 07/30/20 01/11/22 01/10/22 History magnesium oxide 400 mg (241.3 mg 400 mg PO DAILY 07/30/20 01/11/22 01/10/22 History magnesium) tablet melatonin 5 mg tablet 10 mg PO BEDTIME PRN 07/30/20 01/11/22 01/10/22 History potassium chloride 20 mEq oral 20 meq PO DAILY 07/30/20 01/11/22 01/10/22 History packet rivaroxaban 20 mg tablet (Xarelto) 20 mg PO DAILY@1700 07/30/20 01/11/22 01/10/22 History sertraline 100 mg tablet 100 mg PO DAILY 07/30/20 01/11/22 01/10/22 History fluticasone propionate 50 1 spray INTRANASAL BID PRN 10/25/20 01/11/22 01/10/22 History mcg/actuation nasal spray,suspension sertraline 50 mg tablet 50 mg PO DAILY 10/25/20 01/11/22 01/10/22 History metoprolol tartrate 100 mg tablet 100 mg PO BID 02/11/21 01/11/22 01/10/22 History paliperidone palmitate 234 mg/1.5 234 mg IM Q3W ml 04/15/21 01/11/22 Unknown History mL intramuscular syringe (Invega Sustenna) benztropine 1 mg tablet 1 mg PO BID 06/17/21 01/11/22 01/10/22 History risperidone 0.5 mg tablet 1 mg PO BEDTIME 06/17/21 01/11/22 01/10/22 History ergocalciferol (vitamin D2) 1,250 1,250 mcg PO ALLRED@0900 12/18/21 01/11/22 01/04/22 History mcg (50,000 unit) capsule (Vitamin D2) risperidone 1 mg tablet 1 mg PO BID@0800,1400 tab 12/18/21 01/11/22 01/10/22 History acetaminophen 325 mg tablet 650 mg PO Q4H PRN 01/11/22 01/11/22 Unknown History ipratropium 20 mcg-albuterol 100 1 puff INHALATION QID 01/11/22 01/11/22 01/10/22 History mcg/actuation mist for inhalation (Combivent Respimat) sydzafvctpgh-smsshgtn-hlyezd tablet 1 tab PO DAILY 01/11/22 01/11/22 01/10/22 History nystatin-triamcinolone 100,000 1 appl TOPICAL BID 01/11/22 01/11/22 01/10/22 History unit/g-0.1 % topical cream ondansetron 4 mg disintegrating 1 tab PO Q12H PRN 01/11/22 01/11/22 Unknown History tablet vitamins A,C,I-smfw-hzfnik 14,320 1 cap PO DAILY 01/11/22 01/11/22 01/10/22 History unit-226 mg-200 unit capsule (PreserVision AREDS) Physical Exam Vital Signs: Vital Signs: Last Vital Signs Temp 98 F 01/11/22 05:33 Pulse 60 01/11/22 10:52 Resp 16 01/11/22 10:52 BP 160/70 H 01/11/22 10:52 Pulse Ox 98 01/11/22 10:52 BMI result Body Mass Index 44.7 Const: General: comfortable and no acute distress Orientatio n/consciousness: patient oriented x3 HEENT: Other: Unremarkable Head: Yes normal to inspection Neck: Neck: Yes normal visual inspection Chest: Chest palpation & inspection: normal inspection of the chest Resp: Auscultation: clear to auscultation bilaterally Cardio: Palpation: normal PMI Heart sounds: S1 normal heart sound present, S2 normal heart sound present, no gallops, no murmurs and no rubs GI: Palpation (GI): Soft to palpation Back/Spine/Pelvis: Other: unremarkable Skin: General skin exam: no rashes or lesions noted Neuro: General: patient oriented x3 Extrem: General: Yes normal to inspection Psych: Mental Status: mental status grossly normal Objective Labs and Meds Result diagrams: 01/11/22 06:40 01/11/22 06:40 Lab results: Laboratory Results - last 24 hr 01/11/22 01/11/22 01/11/22 00:12 00:12 00:12 WBC 8.5 RBC 4.29 Hgb 12.8 Hct 38.7 MCV 90.2 MCH 29.8 MCHC 33.1 RDW 13.6 Plt Count 296 MPV 9.0 L Immature Gran % (Auto) 0.2 Neut % (Auto) 52.8 Lymph % (Auto) 35.6 [place] % (Auto) 8.1 Eos % (Auto) 2.9 Baso % (Auto) 0.4 Lymph # (Auto) 3.0 [place] # (Auto) 0.7 Eos # (Auto) 0.3 Baso # (Auto) 0.0 Abs Immat Gran (auto) 0.02 Absolute Neuts (auto) 4.5 Absolute Nucleated RBC 0.000 Nucleated RBC % (auto) 0.0 Sodium 138 Potassium 4.1 Chloride 103 Carbon Dioxide 26 Anion Gap 13 BUN 20 H Creatinine 0.73 Estim Creat Clear Calc 106.3 Estimated GFR > 60 Random Glucose 116 H Calcium 9.2 Total Bilirubin < 0.2 AST 21 ALT 20 Alkaline Phosphatase 92 Troponin I High Sens < 3.5 Total Protein 6.8 Albumin 3.5 COVID-19 (VIC) COVID-19 Clin Com 01/11/22 01/11/22 01/11/22 00:12 02:42 06:40 WBC 6.8 RBC 4.25 Hgb 12.6 Hct 38.9 MCV 91.5 MCH 29.6 MCHC 32.4 RDW 13.7 Plt Count 301 MPV 9.2 L Immature Gran % (Auto) 0.3 Neut % (Auto) 50.3 Lymph % (Auto) 35.4 [place] % (Auto) 10.1 Eos % (Auto) 3.5 Baso % (Auto) 0.4 Lymph # (Auto) 2.4 [place] # (Auto) 0.7 Eos # (Auto) 0.2 Baso # (Auto) 0.0 Abs Immat Gran (auto) 0.02 Absolute Neuts (auto) 3.4 Absolute Nucleated RBC 0.000 Nucleated RBC % (auto) 0.0 Sodium Potassium Chloride Carbon Dioxide Anion Gap BUN Creatinine Estim Creat Clear Calc Estimated GFR Random Glucose Calcium Total Bilirubin AST ALT Alkaline Phosphatase Troponin I High Sens 3.5 Total Protein Albumin COVID-19 (VIC) Negative COVID-19 Clin Com See Note 01/11/22 06:40 WBC RBC Hgb Hct MCV MCH MCHC RDW Plt Count MPV Immature Gran % (Auto) Neut % (Auto) Lymph % (Auto) [place] % (Auto) Eos % (Auto) Baso % (Auto) Lymph # (Auto) [place] # (Auto) Eos # (Auto) Baso # (Auto) Abs Immat Gran (auto) Absolute Neuts (auto) Absolute Nucleated RBC Nucleated RBC % (auto) Sodium 138 Potassium 4.5 Chloride 104 Carbon Dioxide 29 Anion Gap 10 L BUN 18 H Creatinine 0.75 Estim Creat Clear Calc 103.4 Estimated GFR > 60 Random Glucose 100 Calcium 9.4 Total Bilirubin AST ALT Alkaline Phosphatase Troponin I High Sens Total Protein Albumin COVID-19 (VIC) COVID-19 Clin Com ECG Interpretation: EKG with atrial paced rhythm at 60/Min; leftward axis; no significant ST-T changes and otherwise unremarkable. Imaging Radiologist's impression: Impressions Chest X-Ray 01/10/22 23:55 IMPRESSION: No acute pulmonary finding. Assessment and Plan (1) PAF (paroxysmal atrial fibrillation): Status: Acute (2) Nonischemic cardiomyopathy: Status: Acute (3) Dizziness: Status: Inactive (4) Morbid obesity: Status: Acute (5) Atypical chest pain: Status: Inactive Plan High sensitivity troponins are negative x2. EKG does not show any ischemic changes. Her symptoms are also very atypical. Last stress test from 2017 that shows normal perfusion. Last echocardiogram with LVEF 50-55%. In the recent pacemaker interrogation, no evidence of recurrent atrial arrhythmias and hence palpitations are not from recurrent atrial fibrillation rapid rate. Dizziness also sounds nonspecific as the blood pressure is rather on the higher side. Overall, no specific inpatient workup required. May be discharged home. We will arrange follow-up in the office. Procedures Date of Service Date of Service: 01/11/22
--- NOTE | 2022-01-11 12:23 | PM.DS ---
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 dizziness.? Patient reported that yesterday she felt dizzy / lightheaded followed by she felt some discomfort in her chest and then pain in the throat/ GI.? Followed by she felt palpitations; mentions pain or she tries to move around she fells dizziness.? Denies any room spinning.? Hence presented to the ER for further evaluation. Denies any fever chills cough? Or sputum production.? Denies any GI symptoms.? At the time of my interview denies any jaw pain.? Review of all other systems is negative except mentioned above ER course: Per ER team patient's EKG was nonischemic; troponin was negative; given moderate LAINEY score.? Decided to admit to the hospital for cardiology evaluation. Hospital course: Patient came to the hospital because of jaw jaw pain and dizziness-cardiac workup including EKG and heart enzymes seems to be fine seen by Cardiology and recommended to continue home medications and patient will be going home since her symptoms are resolved spontaneously denies any any jaw tightness or dizziness this morning.In the recent pacemaker interrogation, no evidence of recurrent atrial arrhythmias and hence palpitations are not from recurrent atrial fibrillation rapid rate. Blood pressure fluctuating-discussed with Cardiology , keep current meds. Monitor blood pressure outpatient with PCP. Patient is to follow up outpatient with PCP and cardiology may arrange their own appointment. Above management discussed with the patient in detail length she understand and in agreement with the above plan, time spent 50 minutes and 50% time spent on counseling. Significant findings: As above. Procedures performed: None. Treatment and response: As above. Complications: None. Time Spent with Patient Time attestation: Total time spent providing and/or coordinating discharge services: Discharge coordination time: Greater than 30 minutes Quality: Safe Use of Opioids Does Pt have an Active Cancer Diagnosis on the Problem List?: No Quality: Stroke Does the patient have a stroke diagnosis?: No Physical Exam Vital Signs: Vital Signs: Last Vital Signs Temp 98 F 01/11/22 05:33 Pulse 60 01/11/22 10:52 Resp 16 01/11/22 10:52 BP 160/70 H 01/11/22 10:52 Pulse Ox 98 01/11/22 10:52 BMI result Body Mass Index 44.7 Gen: Appears be in no acute distress HEENT:? NCAT,? Moist mucosa. Pulmonary:? Vesicular breath sounds, fair air entry CVS:? Normal S1-S2 Abdomen: BS+, Soft, Nontender Extremities:? Warm well perfused Neuro:? Alert and awake. DS: Data Data Completed and Pending Labs on day of discharge: Laboratory Results - last 24 hr 01/11/22 01/11/22 01/11/22 00:12 00:12 00:12 WBC 8.5 RBC 4.29 Hgb 12.8 Hct 38.7 MCV 90.2 MCH 29.8 MCHC 33.1 RDW 13.6 Plt Count 296 MPV 9.0 L Immature Gran % (Auto) 0.2 Neut % (Auto) 52.8 Lymph % (Auto) 35.6 [place] % (Auto) 8.1 Eos % (Auto) 2.9 Baso % (Auto) 0.4 Lymph # (Auto) 3.0 [place] # (Auto) 0.7 Eos # (Auto) 0.3 Baso # (Auto) 0.0 Abs Immat Gran (auto) 0.02 Absolute Neuts (auto) 4.5 Absolute Nucleated RBC 0.000 Nucleated RBC % (auto) 0.0 Sodium 138 Potassium 4.1 Chloride 103 Carbon Dioxide 26 Anion Gap 13 BUN 20 H Creatinine 0.73 Estim Creat Clear Calc 106.3 Estimated GFR > 60 Random Glucose 116 H Calcium 9.2 Total Bilirubin < 0.2 AST 21 ALT 20 Alkaline Phosphatase 92 Troponin I High Sens < 3.5 Total Protein 6.8 Albumin 3.5 COVID-19 (VIC) COVID-19 Clin Com 01/11/22 01/11/22 01/11/22 00:12 02:42 06:40 WBC 6.8 RBC 4.25 Hgb 12.6 Hct 38.9 MCV 91.5 MCH 29.6 MCHC 32.4 RDW 13.7 Plt Count 301 MPV 9.2 L Immature Gran % (Auto) 0.3 Neut % (Auto) 50.3 Lymph % (Auto) 35.4 [place] % (Auto) 10.1 Eos % (Auto) 3.5 Baso % (Auto) 0.4 Lymph # (Auto) 2.4 [place] # (Auto) 0.7 Eos # (Auto) 0.2 Baso # (Auto) 0.0 Abs Immat Gran (auto) 0.02 Absolute Neuts (auto) 3.4 Absolute Nucleated RBC 0.000 Nucleated RBC % (auto) 0.0 Sodium Potassium Chloride Carbon Dioxide Anion Gap BUN Creatinine Estim Creat Clear Calc Estimated GFR Random Glucose Calcium Total Bilirubin AST ALT Alkaline Phosphatase Troponin I High Sens 3.5 Total Protein Albumin COVID-19 (VIC) Negative COVID-19 Clin Com See Note 01/11/22 06:40 WBC RBC Hgb Hct MCV MCH MCHC RDW Plt Count MPV Immature Gran % (Auto) Neut % (Auto) Lymph % (Auto) [place] % (Auto) Eos % (Auto) Baso % (Auto) Lymph # (Auto) [place] # (Auto) Eos # (Auto) Baso # (Auto) Abs Immat Gran (auto) Absolute Neuts (auto) Absolute Nucleated RBC Nucleated RBC % (auto) Sodium 138 Potassium 4.5 Chloride 104 Carbon Dioxide 29 Anion Gap 10 L BUN 18 H Creatinine 0.75 Estim Creat Clear Calc 103.4 Estimated GFR > 60 Random Glucose 100 Calcium 9.4 Total Bilirubin AST ALT Alkaline Phosphatase Troponin I High Sens Total Protein Albumin COVID-19 (VIC) COVID-19 Clin Com Additional Comments Additional comments: Chest X-Ray? 01/10/22 23:55 IMPRESSION: No acute pulmonary finding. Discharge Plan Discharge Patient Disposition: Home, Self-Care Discharge Diagnosis: Dizziness/jaw pain Referrals: Ugo Iverson [Outside] - 1 Week Physician,Unknown J [Primary Care Provider] - 1 Week Discharge Medications: Continued atorvastatin 80 mg tablet 80 mg PO BEDTIME 0RF sertraline 100 mg tablet 100 mg PO DAILY 0RF Rx Instructions: PT TAKES 100 MG AND 50 MG TOGETHER potassium chloride 20 mEq packet 20 meq PO DAILY 0RF magnesium oxide 400 mg (241.3 mg magnesium) tablet 400 mg PO DAILY 0RF loratadine 10 mg tablet 10 mg PO DAILY 0RF levothyroxine 112 mcg tablet 112 mcg PO DAILY@0630 0RF melatonin 5 mg tablet 10 mg PO BEDTIME PRN (Reason: insomnia) 0RF Xarelto 20 mg tablet 20 mg PO DAILY@1700 0RF Invega Sustenna 234 mg/1.5 mL syringe 234 mg IM Q3W 0RF Rx Instructions: pt unsure when last received injection, thinks 01/06 or 01/07 sertraline 50 mg Tablet 50 mg PO DAILY 0RF Rx Instructions: PATIENT TAKES 100 MG AND 50 MG TABLETS TOGETHER fluticasone propionate 50 mcg/actuation [place],Suspension 1 spray INTRANASAL BID PRN (Reason: Allergy Symptoms) 0RF diltiazem HCl [Cardizem CD] 120 mg Capsule,Extended Release 24hr 120 mg PO DAILY Qty: 30 1RF Protocol: Hold for SBP/HR < HOLD for SBP < : 90 HOLD for HR < : 60 acetaminophen 325 mg Tablet 650 mg PO Q4H PRN (Reason: fever/headache/pain) 0RF nystatin-triamcinolone 100,000-0.1 unit/g-% cream 1 appl TOPICAL BID 0RF ondansetron 4 mg tablet,disintegrating 1 tab PO Q12H PRN (Reason: nausea) 0RF ialchpaaxitd-wesihkzz-ylwdkf Tablet 1 tab PO DAILY 0RF PreserVision AREDS [id number] Capsule 1 cap PO DAILY 0RF Combivent Respimat 20-100 mcg/actuation mist 1 puff INHALATION QID 0RF metoprolol tartrate 100 mg tablet 100 mg PO BID 0RF risperidone 0.5 mg tablet 1 mg PO BEDTIME 0RF benztropine 1 mg tablet 1 mg PO BID 0RF albuterol sulfate [ProAir HFA] 90 mcg/actuation HFA aerosol inhaler 2 puff PO Q4H PRN (Reason: dyspnea) Qty: 8.5 11RF risperidone 1 mg tablet 1 mg PO BID@0800,1400 0RF ergocalciferol (vitamin D2) [Vitamin D2] 1,250 mcg (50,000 unit) capsule 1,250 mcg PO ALLRED@0900 0RF Discharge Orders: Discharge Order (Routine); Ordered 01/11/22 Ordered By: Derrek Rogers Diet: advance to usual diet Activity on Discharge: As tolerated Stand Alone Forms: Patient Portal Discharge page Care Plan Goals: Patient came to the hospital because of jaw jaw pain and dizziness-cardiac workup including EKG and heart enzymes seems to be fine seen by Cardiology and recommended to continue home medications and patient will be going home since her symptoms are resolved spontaneously denies any any jaw tightness or dizziness this morning.In the recent pacemaker interrogation, no evidence of recurrent atrial arrhythmias and hence palpitations are not from recurrent atrial fibrillation rapid rate. Blood pressure fluctuating-discussed with Cardiology , keep current meds. Monitor blood pressure outpatient with PCP. Patient is to follow up outpatient with PCP and cardiology may arrange their own appointment. Health Concerns: As above. Plan of Treatment: As above. Assessment: As above. Discharge Date/Time: 01/11/22 15:00
== END 2022-01-11 15:00 | disposition home or self-care (01) ==
LOC: HO.ED 01-11 01:26 → HO.EDOVER 01-11 02:38
PROVIDERS: Admitting Provider Hospitalist; Emergency Provider Internal Medicine; Visit Provider Internal Medicine
DX: I48.0 Paroxysmal atrial fibrillation (principal); R00.0 Tachycardia, unspecified; I42.8 Other cardiomyopathies; R42 Dizziness and giddiness; R00.2 Palpitations; R07.89 Other chest pain; I11.0 Hypertensive heart disease with heart failure; I50.30 Unspecified diastolic (congestive) heart failure; E03.9 Hypothyroidism, unspecified; E66.01 Morbid (severe) obesity due to excess calories; F20.9 Schizophrenia, unspecified; Z87.891 Personal history of nicotine dependence; Z68.41 Body mass index [BMI] 40.0-44.9, adult; Z20.822 Contact with and (suspected) exposure to COVID-19; Z90.5 Acquired absence of kidney; Z95.0 Presence of cardiac pacemaker; Z90.721 Acquired absence of ovaries, unilateral; Z79.01 Long term (current) use of anticoagulants; Z79.899 Other long term (current) drug therapy
CPT/HCPCS: 36415; 71045; 80048; 80053; 84484; 85025; 87635; 93005; 96372; 99215; 99219; 99284; 99285

== ENCOUNTER → 2022-01-15 10:27 | Outpatient (REF) | payer MEDICARE, MEDICAID, SELFPAY ==
--- NOTE | 2022-01-15 10:44 | CA_ITS ---
Transthoracic Echocardiogram Patient (Last, First, Middle): Shahla Granados, Gender: Female Date of : 1955 Age: 66 Procedure Date: 01/15/2022 Procedure Type: Transthoracic Echocardiogram Location: OP Height: 160.02 cm Weight: 136.53 kg BSA: 2.30 m2 Heart Rate: 60 bpm Bulb Inspector: ROBY Referring MD: Reno Sotomayor MD Accounting Bookkeeper: Marquis Hernandez MD Symptoms: I42.8 - Other cardiomyopathies Study Quality: Technically Difficult ECG Rhythm: Sinus Conclusions: - 1. Normal LV systolic function with upper limits of normal LV wall thickness with grade 2 diastolic dysfunction with LVEF of 65 70%. 2. Normal cardiac valvular Doppler 3. Normal RV systolic pressure 4. No gross pericardial eff Findings Procedure Information Contrast agent, definity, is being given per protocol without apparent complications. Left Ventricle Normal left ventricular size and systolic function. There is mildly increased left ventricular wall thickness. The visually estimated ejection fraction is between 65-70%. Spectral Doppler is indicative of a pseudonormal filling pattern. E/E prime ratio is >15, consistent with elevated filling pressures. Evidence suggests grade II (moderate) diastolic dysfunction. Right Ventricle Normal right ventricular cavity size and systolic function. Atria The left atrium is likely dilated. There is no evidence of interatrial shunt. The right atrium is normal in size. Aortic Valve The aortic valve structure and function is likely normal. There is no aortic valve stenosis. There is no aortic valve regurgitation. Mitral Valve There is mild anterior and posterior mitral leaflet thickening. There is mild mitral valve regurgitation. There is no mitral valve stenosis. Pulmonic Valve The pulmonic valve was not well visualized. Tricuspid Valve Normal tricuspid valve structure. There is mild tricuspid valve regurgitation. The right ventricular systolic pressure is normal. The right ventricular systolic pressure is 23 mmHg. Normal right atrial pressure. There is no evidence of pulmonary hypertension. Great Vessels All visible segments of the aorta are normal in size. The pulmonary artery was not well visualized. Venous The inferior vena cava is normal in size and collapses greater than 50% with inspiration. Pericardium/Pleural There is no evidence of pericardial effusion. Measurements 2D Linear Measurements IVSd: 1.18 0.6-0.9/0.6-1.0 cm LVIDd: 4.98 3.9-5.3/4.2-5.9 cm LVIDd Index: 2.17 2.4-3.2/2.2-3.1 cm/m2 LVIDs: 2.99 2.0-3.6 cm LVPWd: 1.14 0.7-1.1 cm LA Diam: 3.70 2.7-3.8/3.0-4.0 cm LAIDs Index: 1.61 1.5-2.3 cm/m2 LV Mass: 276.13 67-162/88-224 g LV Mass Index: 120.06 43-95/49-115 g/m2 LVOT Diam: 2.00 3.0+(-)1.3 cm 2D Systolic Function EF 4C: 60.90 >55% EF 2C: 69.10 >55% EF BiP: 65.40 >55% Mitral Valve MV Pk E: 1.27 MV PK A: 0.83 MV Decel Time: 181.00 E/A: 1.50 E'Lateral: 8.27 E'Medial: 6.74 E/E' Med: 18.80 E/E' Lat: 15.40 PHT: 53.00 MVA PHT: 4.15 Decel [place]: 7.02 Aortic Valve AoV Pk Vincent: 1.40 AoV Mn Vincent: 0.94 AoV VTI: 0.29 AoV Pk Grad: 8.00 Aov Mn Grad: 4.00 TRISH Cont.VTI: 2.76 LVOT LVOT Pk Vincent: 1.02 LVOT Mn Vincent: 0.75 LVOT VTI: 0.25 LVOT Pk Grad: 4.00 LVOT Mn Grad: 2.00 LVOT Diam: 2.00 LVOT Area: 3.14 Diastolic Function MV Pk E: 1.27 MV Pk A: 0.83 E/A: 1.50 E'Medial: 6.74 E/E' Med: 18.80 E' Laterial: 8.27 E/E' Lat: 15.40 Right Ventricle TAPSE (mm): 25.90 TVS' Vincent: 11.40 Tricuspid Valve TR Pk Vincent: 2.23 TR Pk Grad: 20.00 RA Press: 3.00 RVSP: 23.00 Great Vessels Aorta Sinus of Valsalva: 3.00 2.0-3.[address] [place]: 2.74 1.7-3.4 cm Ao Asc: 3.20 2.1-3.4 cm Pulmonary Veins Pulm Vein S/D 0.90 Pulmonary Valve PV Pk Vincent: 0.76 Peak PV Grad: 2.00 Updated in Other Vendor System with Status of Final Marquis Hernandez MD electronically signed on 01/15/2022 12:54:19 PM with status of Final
== END ==
LOC: HO.CARD 10:27
PROVIDERS: Visit Provider Internal Medicine
DX: I42.8 Other cardiomyopathies (principal)
CPT/HCPCS: 93306; Q9957

== ENCOUNTER → 2022-01-16 09:07 | Outpatient (REF) | payer MEDICARE, MEDICAID, SELFPAY ==
--- NOTE | ~2022-01-16 | NM_ITS ---
Lexiscan Myocardial perfusion study Indication: Atrial fibrillation, chest pain, assess for coronary disease and ischemia Technique: The patient was brought in for a Lexiscan perfusion study on 01/16/2022 and was injected 0.4 mg of Lexiscan intravenously. Within a minute of this injection 45 mCi of sestamibi was given intravenously. Images were obtained using the SPECT gamma camera interlaced with the gating device. Images were obtained in supine position. Resting perfusion study was performed on 01/20/2022. Patient was administered 45 mCi of sestamibi intravenously at rest. Images were then obtained in supine position. Total DLP 143mGy-cm. Images were processed with the software and compared side to side in short axis, horizontal long axis and vertical long axis views. Findings: Raw acquisition was reviewed. The stress perfusion study showed mildly diminished tracer uptake in the distal part of anterior wall. There is improvement with CT attenuation correction suggestive of soft tissue attenuation artifact. The gated study shows normal LV systolic function with calculated LVEF of 63%. LV cavity is normal in size. The gated study shows normal wall thickening and contraction of segments. Resting study shows no significant perfusion abnormality. Gating at rest reveals normal wall motion with ejection fraction at 51%. The findings are consistent with reversible distal anterior defect but improving with CT at admission correction and hence suggestive of soft tissue attenuation artifact. WI/WI cardiolite stress test Impression: 1. Myocardial perfusion imaging study shows reversible distal anterior defect, but improves with CT attenuation correction and hence probably from soft tissue attenuation artifact. Less likely to be true ischemia. 2. Gated LVEF is 60% during stress and 51% during rest. 3. Transient ischemic dilatation not present. EKG component of the test reported separately.
--- NOTE | 2022-01-16 09:10 | CA_ITS ---
Acquisition Time: 2022-01-16 09:21:08 Total Exercise Time: 00:02:00 Test Indications: PROXYSMAL AFIB Medications: SEE CHART Protocol: LEXISCAN Max HR: 086 BPM 55% of Pred: 154 BPM Max BP: 134/074 mmHG Max Work Load: 1.0 METS Pharmacological stress test with Lexiscan injection, while sitting and kicking her legs, without anginal symptoms, without arrythmia, with normotensive response to injection, with nondiagnostic EKG for ischemia. In recovery BP on low side, and she was treated with Aminophylline 75mg IVP to reverse Lexiscan with improvement in BP. Nuclear images pending. Test reviewed with Dr Sevilla Referred By: Reno Sotomayor Overread By: ERIC EPPS
== END ==
LOC: HO.CARD 09:07
PROVIDERS: Visit Provider Internal Medicine
DX: I42.8 Other cardiomyopathies (principal); I48.0 Paroxysmal atrial fibrillation
CPT/HCPCS: 78452; 93017; A9500; J0280; J2785

== ENCOUNTER 2022-01-18 00:12 | Emergency (ER) | payer MEDICARE, MEDICAID, SELFPAY ==
[2022-01-18 00:21] VITALS: BP 148/90; BP 166/79; PULSE 60; PULSE 72; RESP 18; TEMP 36.4; O2SAT 96; BMI 53.1
--- NOTE | 2022-01-18 01:08 | ECG_ITS ---
Test Reason : ABD PAIN Blood Pressure : / mmHG Vent. Rate : 060 BPM Atrial Rate : 060 BPM P-R Int : 206 ms QRS Dur : 082 ms QT Int : 420 ms P-R-T Axes : 002 -11 049 degrees QTc Int : 420 ms Atrial-paced rhythm Abnormal ECG When compared with ECG of 10-JAN-2022 23:08, No significant change was found Referred By: Lola Richards Electronically Signed By:Mando Sevilla
--- NOTE | 2022-01-18 01:47 | ED.ABDPAIN ---
HPI - Abdominal Pain General Chief Complaint: Abdominal Pain Stated Complaint: ABD Pain Time Seen by Provider: 01/18/22 01:07 Source: patient Mode of arrival: EMS History of Present Illness HPI narrative: 66-year-old female arrives via ambulance for complaints sudden onset right lower quadrant/suprapubic pain that was sharp and crampy in nature ?it felt like my menstrual cramps when I was younger? and was not associated with any fever, chills, nausea, vomiting, diarrhea, urinary pain/burning/frequency. Patient currently states that she is completely asymptomatic and no longer has any abdominal pain. Related Data Home Medications Medication Instructions Recorded Confirmed atorvastatin 80 mg tablet 80 mg PO BEDTIME 07/30/20 01/11/22 levothyroxine 112 mcg tablet 112 mcg PO DAILY@0630 07/30/20 01/11/22 loratadine 10 mg tablet 10 mg PO DAILY 07/30/20 01/11/22 magnesium oxide 400 mg (241.3 mg 400 mg PO DAILY 07/30/20 01/11/22 magnesium) tablet melatonin 5 mg tablet 10 mg PO BEDTIME PRN 07/30/20 01/11/22 potassium chloride 20 mEq oral 20 meq PO DAILY 07/30/20 01/11/22 packet rivaroxaban 20 mg tablet (Xarelto) 20 mg PO DAILY@1700 07/30/20 01/11/22 sertraline 100 mg tablet 100 mg PO DAILY 07/30/20 01/11/22 fluticasone propionate 50 1 spray INTRANASAL BID PRN 10/25/20 01/11/22 mcg/actuation nasal spray,suspension sertraline 50 mg tablet 50 mg PO DAILY 10/25/20 01/11/22 metoprolol tartrate 100 mg tablet 100 mg PO BID 02/11/21 01/11/22 paliperidone palmitate 234 mg/1.5 234 mg IM Q3W ml 04/15/21 01/11/22 mL intramuscular syringe (Invega Sustenna) benztropine 1 mg tablet 1 mg PO BID 06/17/21 01/11/22 risperidone 0.5 mg tablet 1 mg PO BEDTIME 06/17/21 01/11/22 ergocalciferol (vitamin D2) 1,250 1,250 mcg PO ALLRED@0900 12/18/21 01/11/22 mcg (50,000 unit) capsule (Vitamin D2) risperidone 1 mg tablet 1 mg PO BID@0800,1400 tab 12/18/21 01/11/22 acetaminophen 325 mg tablet 650 mg PO Q4H PRN 01/11/22 01/11/22 ipratropium 20 mcg-albuterol 100 1 puff INHALATION QID 01/11/22 01/11/22 mcg/actuation mist for inhalation (Combivent Respimat) uzdmzmdtvqxu-ymanupbh-wweqhr tablet 1 tab PO DAILY 01/11/22 01/11/22 nystatin-triamcinolone 100,000 1 appl TOPICAL BID 01/11/22 01/11/22 unit/g-0.1 % topical cream ondansetron 4 mg disintegrating 1 tab PO Q12H PRN 01/11/22 01/11/22 tablet vitamins A,C,Q-gutv-ggpvdg 14,320 1 cap PO DAILY 01/11/22 01/11/22 unit-226 mg-200 unit capsule (PreserVision AREDS) Previous Rx's Medication Instructions Recorded albuterol sulfate 90 mcg/actuation 2 puff PO Q4H PRN #8.5 g 06/17/21 aerosol inhaler (ProAir HFA) diltiazem HCl 180 mg 180 mg PO DAILY #30 cap 01/12/22 capsule,extended release 24 hr Allergies Allergy/AdvReac Type Severity Reaction Status Date / Time No Known Allergies Allergy Verified 01/10/22 23:08 Review of Systems Review of Systems Pertinent positives and negatives as stated in HPI 10 point review of systems is otherwise negative. [facility] Past Medical History Source: nursing notes reviewed Medical History Afib Asthma Asthma-COPD overlap syndrome Atrial fib/flutter, transient Diastolic dysfunction HTN (hypertension) Hypothyroid Morbid obesity Nocturnal hypoxemia Nonischemic cardiomyopathy Pacemaker PAF (paroxysmal atrial fibrillation) Pneumonia due to COVID-19 virus Pneumonitis Schizophrenia Schizophrenia Schizophrenia, paranoid Surgical History History of cardiac pacemaker Hx of kidney removal Hx of removal of ovary Family History Family History Father Heart disease Mother Heart disease Social History Social History Household Members: None Housing: Apartment Do you presently have visiting nurse or other home services: Yes Patient Tobacco Use Status: Former Tobacco user Tobacco use type: Cigarette Years Smoked: 10 years Advance Directives: Yes Advance Directives on File: Yes Advance Directives Date on File: 10/30/20 service: No Current occupational status: disabled Physical Exam ED Vital Signs: Vital Signs - 24 hr 01/18/22 00:21 01/18/22 02:07 01/18/22 03:11 Temperature 97.6 F Pulse Rate 60 59 62 Respiratory Rate 18 16 18 Blood Pressure 166/79 H 142/60 H 148/76 H Pulse Oximetry 96 96 95 BMI result Body Mass Index 53.1 VITAL SIGNS: Reviewed. GENERAL: Elevated BMI, Well developed, well nourished, in no acute distress. HEAD: Normocephalic/atraumatic EYES: PERRLA, EOMI EARS: Ext canals without abnormality OROPHARYNX: no oral lesions noted, posterior pharynx clear LUNGS: Normal breath sounds. No adventitious sounds or accessory muscle use. SpO2<96> CARDIOVASCULAR: Regular rate and rhythm without noted murmurs, no JVD or lower extremity edema. ABDOMEN: Soft, non-tender, non-distended with bowel sounds. MUSCULOSKELETAL: No tenderness, deformities, or effusions noted on gross inspection. EXTREMITIES: No cyanosis, clubbing or edema. SKIN: Inspection of the skin reveals no rashes NEUROLOGIC: Alert and oriented x 4. Strength and sensation to light touch were grossly intact x 4. Course Course Course Narrative: 66-year-old female with history and clinical presentation most consistent with likely stool/gas pain as it has completely resolved and was brief in nature with no other associated complaints. However, given extensive medical comorbidities will obtain basic lab work. Review of all investigations is without acute findings and patient remains asymptomatic and denies any further abdominal discomfort. She is hemodynamically stable and will be discharged home. MDM - Abdominal Pain Lab Data Result diagrams: 01/18/22 01:50 01/18/22 02:28 Labs: Lab Results 01/18/22 01/18/22 01/18/22 Range/Units 01:50 01:50 01:50 WBC 7.9 (4.8-10.8) X10*3/uL RBC 4.21 (4.20-5.50) X10*6/uL Hgb 12.4 (12.0-16.0) g/dl Hct 38.1 (37.0-47.0) % MCV 90.5 (80.0-98.0) fL MCH 29.5 (27.0-33.0) pg MCHC 32.5 (31.0-35.0) g/dl RDW 13.7 (11.0-16.0) % Plt Count 284 (160-400) X10*3/uL MPV 9.0 L (9.4-12.3) fL Immature Gran % (Auto) 0.4 (0.0-0.4) % Neut % (Auto) 55.1 (45-73) % Lymph % (Auto) 30.2 (20-40) % [place] % (Auto) 10.3 (2-11) % Eos % (Auto) 3.7 (0-4) % Baso % (Auto) 0.3 (0-2) % Lymph # (Auto) 2.4 (1.2-4.9) X10*3/uL [place] # (Auto) 0.8 (0.1-1.2) X10*3/uL Eos # (Auto) 0.3 (0.0-0.4) X10*3/uL Baso # (Auto) 0.0 (0.0-0.2) X10*3/uL Abs Immat Gran (auto) 0.03 (0.00-0.03) X10*3/uL Absolute Neuts (auto) 4.4 (2.0-8.3) x10*3/uL Absolute Nucleated RBC 0.000 (0.0-0.012) X10*3/uL Nucleated RBC % (auto) 0.0 (0.0-0.2) /100WBC PT 19.1 H (9.9-13.0) SEC INR 1.7 H (0.9-1.1) Sodium (135-145) mmol/L Potassium (3.3-5.1) mmol/L Chloride (96-108) mmol/L Carbon Dioxide (22-29) mmol/L Anion Gap (12-20) BUN (9-16) mg/dL Creatinine (0.5-1.4) mg/dL Estim Creat Clear Calc Estimated GFR Random Glucose (60-115) mg/dL Lactic Acid (0.5-2.0) mmol/L Calcium (8.4-10.2) mg/dL Total Bilirubin (0.0-1.0) mg/dL AST (5-31) U/L ALT (0-31) U/L Alkaline Phosphatase (39-117) U/L Troponin I High Sens (<3.5-17.0) ng/L Total Protein (6.5-8.0) g/dL Albumin (3.5-5.0) g/dL Urine Color STRAW Urine Appearance CLEAR Urine pH 7.0 (5.0-8.0) Ur Specific [place] <= 1.005 (1.005-1.025) Urine Protein NEG (NEG-TRACE) MG/DL Urine Glucose (UA) NEG (NEG) MG/DL Urine Ketones NEG (NEG) MG/DL Urine Blood NEG (NEG) Urine Nitrite NEG (NEG) Ur Leukocyte Esterase NEG (NEG) 01/18/22 01/18/22 01/18/22 Range/Units 02:28 02:28 02:28 WBC (4.8-10.8) X10*3/uL RBC (4.20-5.50) X10*6/uL Hgb (12.0-16.0) g/dl Hct (37.0-47.0) % MCV (80.0-98.0) fL MCH (27.0-33.0) pg MCHC (31.0-35.0) g/dl RDW (11.0-16.0) % Plt Count (160-400) X10*3/uL MPV (9.4-12.3) fL Immature Gran % (Auto) (0.0-0.4) % Neut % (Auto) (45-73) % Lymph % (Auto) (20-40) % [place] % (Auto) (2-11) % Eos % (Auto) (0-4) % Baso % (Auto) (0-2) % Lymph # (Auto) (1.2-4.9) X10*3/uL [place] # (Auto) (0.1-1.2) X10*3/uL Eos # (Auto) (0.0-0.4) X10*3/uL Baso # (Auto) (0.0-0.2) X10*3/uL Abs Immat Gran (auto) (0.00-0.03) X10*3/uL Absolute Neuts (auto) (2.0-8.3) x10*3/uL Absolute Nucleated RBC (0.0-0.012) X10*3/uL Nucleated RBC % (auto) (0.0-0.2) /100WBC PT (9.9-13.0) SEC INR (0.9-1.1) Sodium 135 (135-145) mmol/L Potassium 4.2 (3.3-5.1) mmol/L Chloride 99 (96-108) mmol/L Carbon Dioxide 27 (22-29) mmol/L Anion Gap 13 (12-20) BUN 16 (9-16) mg/dL Creatinine 0.74 (0.5-1.4) mg/dL Estim Creat Clear Calc 101.3 Estimated GFR > 60 Random Glucose 112 (60-115) mg/dL Lactic Acid 1.2 (0.5-2.0) mmol/L Calcium 9.4 (8.4-10.2) mg/dL Total Bilirubin 0.4 (0.0-1.0) mg/dL AST 19 (5-31) U/L ALT 24 (0-31) U/L Alkaline Phosphatase 88 (39-117) U/L Troponin I High Sens < 3.5 (<3.5-17.0) ng/L Total Protein 6.6 (6.5-8.0) g/dL Albumin 3.5 (3.5-5.0) g/dL Urine Color Urine Appearance Urine pH (5.0-8.0) Ur Specific [place] (1.005-1.025) Urine Protein (NEG-TRACE) MG/DL Urine Glucose (UA) (NEG) MG/DL Urine Ketones (NEG) MG/DL Urine Blood (NEG) Urine Nitrite (NEG) Ur Leukocyte Esterase (NEG) ECG Data Attestation: I personally reviewed and interpreted this ECG as follows: Prior ECG tracings: available for review Interpretation: Atrial paced rhythm, HR -60, no STEMI, SD/QRS/QTC are within normal limits. Discharge Plan Discharge Clinical Impression: Abdominal pain Patient Disposition: Home, Self-Care Instructions: Abdominal Pain (ED) Additional Instructions: 1. Resume all home medications as prescribed. Return to the ER for worsening symptoms P Prescriptions: No Action diltiazem HCl 180 mg capsule,extended release 24hr 180 mg PO DAILY Qty: 30 5RF atorvastatin 80 mg tablet 80 mg PO BEDTIME 0RF sertraline 100 mg tablet 100 mg PO DAILY 0RF Rx Instructions: PT TAKES 100 MG AND 50 MG TOGETHER potassium chloride 20 mEq packet 20 meq PO DAILY 0RF magnesium oxide 400 mg (241.3 mg magnesium) tablet 400 mg PO DAILY 0RF loratadine 10 mg tablet 10 mg PO DAILY 0RF levothyroxine 112 mcg tablet 112 mcg PO DAILY@0630 0RF melatonin 5 mg tablet 10 mg PO BEDTIME PRN (Reason: insomnia) 0RF Xarelto 20 mg tablet 20 mg PO DAILY@1700 0RF Invega Sustenna 234 mg/1.5 mL syringe 234 mg IM Q3W 0RF Rx Instructions: pt unsure when last received injection, thinks 01/06 or 01/07 sertraline 50 mg Tablet 50 mg PO DAILY 0RF Rx Instructions: PATIENT TAKES 100 MG AND 50 MG TABLETS TOGETHER fluticasone propionate 50 mcg/actuation [place],Suspension 1 spray INTRANASAL BID PRN (Reason: Allergy Symptoms) 0RF acetaminophen 325 mg Tablet 650 mg PO Q4H PRN (Reason: fever/headache/pain) 0RF nystatin-triamcinolone 100,000-0.1 unit/g-% cream 1 appl TOPICAL BID 0RF ondansetron 4 mg tablet,disintegrating 1 tab PO Q12H PRN (Reason: nausea) 0RF gcnpcsqapciz-dcnrjnjk-yspzid Tablet 1 tab PO DAILY 0RF PreserVision AREDS 14,320-226-200 moex-aj-hiks Capsule 1 cap PO DAILY 0RF Combivent Respimat 20-100 mcg/actuation mist 1 puff INHALATION QID 0RF metoprolol tartrate 100 mg tablet 100 mg PO BID 0RF risperidone 0.5 mg tablet 1 mg PO BEDTIME 0RF benztropine 1 mg tablet 1 mg PO BID 0RF albuterol sulfate [ProAir HFA] 90 mcg/actuation HFA aerosol inhaler 2 puff PO Q4H PRN (Reason: dyspnea) Qty: 8.5 11RF risperidone 1 mg tablet 1 mg PO BID@0800,1400 0RF ergocalciferol (vitamin D2) [Vitamin D2] 1,250 mcg (50,000 unit) capsule 1,250 mcg PO ALLRED@0900 0RF
[2022-01-18 02:00] LABS: Basophils Percent Auto 0.3 % (0-2); Eosinophils Absolute Auto 0.3 X10*3/uL (0.0-0.4); Eosinophils Percent Auto 3.7 % (0-4); Hematocrit 38.1 % (37.0-47.0); Hemoglobin 12.4 g/dl (12.0-16.0); Imm Gran Abs Auto 0.03 X10*3/uL (0.00-0.03); Imm Gran Pct Auto 0.4 % (0.0-0.4); Lymphocytes Absolute Auto 2.4 X10*3/uL (1.2-4.9); Lymphocytes Percent Auto 30.2 % (20-40); MANUAL DIFF FLAG NO; Mean Corpuscular HGB Conc 32.5 g/dl (31.0-35.0); Mean Corpuscular Hemoglobin 29.5 pg (27.0-33.0); Mean Corpuscular Volume 90.5 fL (80.0-98.0); Monocytes Absolute Auto 0.8 X10*3/uL (0.1-1.2); Monocytes Percent Auto 10.3 % (2-11); Neutrophils Absolute Auto 4.4 x10*3/uL (2.0-8.3); Neutrophils Percent Auto 55.1 % (45-73); Platelet Count 284 X10*3/uL (160-400); Red Blood Count 4.21 X10*6/uL (4.20-5.50); Red Cell Distribution Width 13.7 % (11.0-16.0); White Blood Count 7.9 X10*3/uL (4.8-10.8)
[2022-01-18 02:01] LABS: Appearance Urine CLEAR; Color Urine STRAW; Glucose Urine UA NEG (NEG); Leukocyte Esterase Urine NEG (NEG); Nitrite Urine NEG (NEG); Specific Gravity - Urine <= 1.005 (1.005-1.025); Urine Blood NEG (NEG); Urine Ketones NEG (NEG); Urine Protein NEG (NEG-TRACE)
[2022-01-18 02:07] VITALS: BP 142/60; PULSE 59; RESP 16; O2SAT 96
[2022-01-18 02:07] LABS: INTERNATIONAL NORM RATIO 1.7 (0.9-1.1); Prothrombin Time 19.1 SEC (9.9-13.0)
[2022-01-18 02:47] LABS: Lactic Acid 1.2 mmol/L (0.5-2.0)
[2022-01-18 02:52] LABS: Alanine Aminotransferase 24 U/L (0-31); Albumin Level 3.5 g/dL (3.5-5.0); Alkaline Phosphatase 88 U/L (39-117); Anion Gap 13 (12-20); Aspartate Amino Transferase 19 U/L (5-31); Bilirubin Total 0.4 mg/dL (0.0-1.0); Blood Urea Nitrogen 16 mg/dL (9-16); Calcium 9.4 mg/dL (8.4-10.2); Carbon Dioxide 27 mmol/L (22-29); Chloride 99 mmol/L (96-108); Creatinine Clr Calc Pharmacy 101.3; Estimated Glomerular Filt Rate > 60; Glucose Random 112 mg/dL (60-115); Potassium 4.2 mmol/L (3.3-5.1); Sodium 135 mmol/L (135-145); Total Protein 6.6 g/dL (6.5-8.0)
[2022-01-18 02:58] LABS: Troponin-I High Sensitivity < 3.5 ng/L (<3.5-17.0)
[2022-01-18 03:11] VITALS: BP 148/76; PULSE 62; RESP 18; O2SAT 95
[2022-01-18 04:06] VITALS: BP 144/69; PULSE 61; RESP 14; O2SAT 96
== END 2022-01-18 04:15 | disposition home or self-care (01) ==
PROVIDERS: Emergency Provider Student in an Organized Health Care Education/Training Program
DX: R10.31 Right lower quadrant pain (principal); R10.9 Unspecified abdominal pain; Z87.891 Personal history of nicotine dependence; Z79.899 Other long term (current) drug therapy
CPT/HCPCS: 36415; 80053; 81003; 83605; 84484; 85025; 85610; 87040; 93005; 99283; 99284

== ENCOUNTER → 2022-04-03 11:01 | Outpatient (BNVA) | payer MEDICARE, MEDICAID, SELFPAY | PROVIDERS: Visit Provider Dietitian, Registered | DX: R73.03 Prediabetes (principal); E66.01 Morbid (severe) obesity due to excess calories | CPT/HCPCS: 97802 ==

== ENCOUNTER → 2022-05-14 10:28 | Outpatient (BNVA) | payer MEDICARE, MEDICAID, SELFPAY | PROVIDERS: Visit Provider Dietitian, Registered | DX: R73.03 Prediabetes (principal); E66.01 Morbid (severe) obesity due to excess calories; Z68.43 Body mass index [BMI] 50.0-59.9, adult; Z71.3 Dietary counseling and surveillance | CPT/HCPCS: 97803 ==

== ENCOUNTER 2022-05-26 13:06 | Emergency (ER) | payer MEDICARE, MEDICAID, SELFPAY ==
--- NOTE | 2022-05-26 | ECG_ITS ---
Test Reason : SOB Blood Pressure : / mmHG Vent. Rate : 060 BPM Atrial Rate : 060 BPM P-R Int : 188 ms QRS Dur : 088 ms QT Int : 432 ms P-R-T Axes : -12 -18 055 degrees QTc Int : 432 ms Atrial-paced rhythm Abnormal ECG When compared with ECG of 18-JAN-2022 01:26, No significant change was found Referred By: Generic ED Physician Electronically Signed By:ARMANDO DEJESUS
[2022-05-26 13:44] VITALS: BP 166/72; PULSE 60; RESP 18; TEMP 36.6; O2SAT 95; BMI 52.4
[2022-05-26 14:21] LABS: Anion Gap 12 (12-20); Blood Urea Nitrogen 28 mg/dL (9-16); Calcium 9.2 mg/dL (8.4-10.2); Carbon Dioxide 28 mmol/L (22-29); Chloride 104 mmol/L (96-108); Creatinine Clr Calc Pharmacy 104.7; Estimated Glomerular Filt Rate > 60; Glucose Random 109 mg/dL (60-115); Potassium 4.3 mmol/L (3.3-5.1); Sodium 140 mmol/L (135-145)
[2022-05-26 14:30] LABS: B Type Natriuretic Peptide 47 pg/mL (<100); Troponin-I High Sensitivity < 3.5 ng/L (<3.5-17.0)
== END 2022-05-26 18:19 | disposition left against medical advice (07) ==
PROVIDERS: Emergency Provider Emergency Medicine
DX: M62.81 Muscle weakness (generalized) (principal); R06.02 Shortness of breath; R07.89 Other chest pain; Z79.899 Other long term (current) drug therapy
CPT/HCPCS: 36415; 80048; 83880; 84484; 93005; 99283

== ENCOUNTER → 2022-09-22 09:03 | Outpatient (BNVA) | payer MEDICARE, MEDICAID, SELFPAY | PROVIDERS: PCP Internal Medicine; Visit Provider Internal Medicine | DX: I48.0 Paroxysmal atrial fibrillation (principal); I49.5 Sick sinus syndrome; I42.8 Other cardiomyopathies | CPT/HCPCS: 99212 ==

== ENCOUNTER 2022-12-17 15:35 | Emergency (ER) | payer MEDICARE, MEDICAID, SELFPAY ==
--- NOTE | ~2022-12-17 | XR_ITS ---
EXAMINATION: XR CHEST CLINICAL INFORMATION: Chest pain COMPARISON: Chest x-ray 01/10/2022 TECHNIQUE: Frontal view of the chest was obtained. 1657 hours FINDINGS: No change position of pacemaker leads in the right atrium and right ventricle. The cardiac and the mediastinal contours are normal. Heart size is normal. No pulmonary vascular congestion. Lungs normally aerated. There is no pleural effusion or pneumothorax. XR/XR chest 1V IMPRESSION: No acute abnormality of the chest.
--- NOTE | 2022-12-17 15:42 | ECG_ITS ---
Test Reason : shoulder/back pain Blood Pressure : / mmHG Vent. Rate : 060 BPM Atrial Rate : 060 BPM P-R Int : 202 ms QRS Dur : 090 ms QT Int : 430 ms P-R-T Axes : -08 -24 050 degrees QTc Int : 430 ms Atrial-paced rhythm Abnormal ECG When compared with ECG of 26-MAY-2022 13:53, No significant change was found Referred By: Generic ED Physician Electronically Signed By:Mando Sevilla
[2022-12-17 15:49] VITALS: BP 172/84; PULSE 60; O2SAT 96
[2022-12-17 16:02] VITALS: BP 151/75; PULSE 60; RESP 18; TEMP 36.6; O2SAT 94; BMI 43.2
--- NOTE | 2022-12-17 16:11 | ED_ITS ---
HPI - General Adult General Chief complaint: Upper Respiratory Symptoms Stated complaint: SOB Related Data Home Medications Medication Instructions Recorded Confirmed atorvastatin 80 mg tablet 80 mg PO BEDTIME 07/30/20 09/22/22 levothyroxine 112 mcg tablet 112 mcg PO DAILY@0630 07/30/20 09/22/22 loratadine 10 mg tablet 10 mg PO DAILY 07/30/20 09/22/22 magnesium oxide 400 mg (241.3 mg 400 mg PO DAILY 07/30/20 09/22/22 magnesium) tablet melatonin 5 mg tablet 10 mg PO BEDTIME PRN insomnia 07/30/20 09/22/22 potassium chloride 20 mEq oral 20 meq PO DAILY 07/30/20 09/22/22 packet sertraline 100 mg tablet 100 mg PO DAILY 07/30/20 09/22/22 fluticasone propionate 50 1 spray intranasal BID PRN Allergy 10/25/20 09/22/22 mcg/actuation nasal Symptoms spray,suspension sertraline 50 mg tablet 50 mg PO DAILY 10/25/20 09/22/22 metoprolol tartrate 100 mg tablet 100 mg PO BID 02/11/21 09/22/22 paliperidone palmitate 234 mg/1.5 234 mg IM Q3W 04/15/21 09/22/22 mL [facility] benztropine 1 mg tablet 1 mg PO BID 06/17/21 09/22/22 risperidone 0.5 mg tablet 1 mg PO BEDTIME 06/17/21 09/22/22 risperidone 1 mg tablet 1 mg PO BID@0800,1400 12/18/21 09/22/22 acetaminophen 325 mg tablet 650 mg PO Q4H PRN 01/11/22 09/22/22 fever/headache/pain biqaumykngtq-syxleeft-zgnggb tablet 1 tab PO DAILY 01/11/22 09/22/22 nystatin-triamcinolone 100,000 1 appl topical BID 01/11/22 09/22/22 unit/g-0.1 % topical cream vitamins A,C,N-club-jyicji 4,296 1 cap PO DAILY 01/11/22 09/22/22 mcg-226 mg-90 mg capsule (PreserVision AREDS) sertraline 25 mg tablet 0 mg PO DAILY 09/22/22 09/22/22 Previous Rx's Medication Instructions Recorded albuterol sulfate 90 mcg/actuation 2 puff PO Q4H PRN for dyspnea #8.5 06/10/22 aerosol inhaler grams rivaroxaban 20 mg tablet (Xarelto) 20 mg PO QPM #30 tabs 07/31/22 diltiazem HCl 180 mg 180 mg PO DAILY #30 caps 08/25/22 capsule,extended release 24 hr Allergies Allergy/AdvReac Type Severity Reaction Status Date / Time No Known Allergies Allergy Verified 09/22/22 09:29 [facility] Past Medical History Medical History Afib Asthma Asthma-COPD overlap syndrome Atrial fib/flutter, transient Diastolic dysfunction HTN (hypertension) Hypothyroid Morbid obesity Nocturnal hypoxemia Nonischemic cardiomyopathy Pacemaker PAF (paroxysmal atrial fibrillation) Pneumonia due to COVID-19 virus Pneumonitis Schizophrenia Schizophrenia Schizophrenia, paranoid Surgical History History of cardiac pacemaker Hx of kidney removal Hx of removal of ovary Family History Family History Father Heart disease Mother Heart disease Social History Social History Household Members: None Housing: Apartment Do you presently have visiting nurse or other home services: Yes Alcohol intake: never Patient Tobacco Use Status: Former Tobacco user Quit Date: 1989 Smoked: 10 years +/- Advance Directives Date on File: 10/30/20 service: No Current occupational status: disabled Physical Exam ED Vital Signs: Vital Signs - 24 hr 12/17/22 16:02 Temperature 97.9 F Pulse Rate 60 Respiratory Rate 18 Blood Pressure 151/75 H Pulse Oximetry 94 Oxygen Delivery Method Room Air BMI result Body Mass Index 43.2 Course Course Course Narrative: This is an RME: Additional HPI, ROS, PE not included below will be deferred to primary provider. 67-year-old female presents with shortness of breath over the past few months worsening over the past few days she wears 4 L of nasal cannula home as needed. Patient she came in because she felt some tightness in her chest as well earlier today. Patient tried nebulizing treatments at home with little to no relief. She states she is currently in the process of being tested for COPD. Physical exam benign. 94% on home oxygen. Appears comfortable Plan labs, imaging Discharge Plan Discharge Prescriptions: No Action albuterol sulfate 90 mcg/actuation HFA aerosol inhaler 2 puff PO Q4H PRN (Reason: for dyspnea) Qty: 8.5 10RF Xarelto 20 mg tablet 20 mg PO QPM Qty: 30 5RF diltiazem HCl 180 mg capsule,extended release 24hr 180 mg PO DAILY Qty: 30 6RF atorvastatin 80 mg tablet 80 mg PO BEDTIME sertraline 100 mg tablet 100 mg PO DAILY Rx Instructions: PT TAKES 100 MG AND 50 MG TOGETHER potassium chloride 20 mEq packet 20 meq PO DAILY magnesium oxide 400 mg (241.3 mg magnesium) tablet 400 mg PO DAILY loratadine 10 mg tablet 10 mg PO DAILY levothyroxine 112 mcg tablet 112 mcg PO DAILY@0630 melatonin 5 mg tablet 10 mg PO BEDTIME PRN (Reason: insomnia) Invega Sustenna 234 mg/1.5 mL syringe 234 mg IM Q3W Rx Instructions: pt unsure when last received injection, thinks 01/06 or 01/07 sertraline 50 mg Tablet 50 mg PO DAILY Rx Instructions: PATIENT TAKES 100 MG AND 50 MG TABLETS TOGETHER fluticasone propionate 50 mcg/actuation [place],Suspension 1 spray INTRANASAL BID PRN (Reason: Allergy Symptoms) acetaminophen 325 mg Tablet 650 mg PO Q4H PRN (Reason: fever/headache/pain) nystatin-triamcinolone 100,000-0.1 unit/g-% cream 1 appl TOPICAL BID gbzbbqljyyze-bmtypdac-klzows Tablet 1 tab PO DAILY PreserVision AREDS 14,320-226-200 lkea-sp-uwsa Capsule 1 cap PO DAILY metoprolol tartrate 100 mg tablet 100 mg PO BID risperidone 0.5 mg tablet 1 mg PO BEDTIME benztropine 1 mg tablet 1 mg PO BID risperidone 1 mg tablet 1 mg PO BID@0800,1400 sertraline 25 mg tablet 0 mg PO DAILY
[2022-12-17 16:33] LABS: MANUAL DIFF FLAG NO
[2022-12-17 16:37] LABS: Basophils Percent Auto 0.5 % (0-2); Eosinophils Absolute Auto 0.2 X10*3/uL (0.0-0.4); Eosinophils Percent Auto 2.7 % (0-4); Hematocrit 39.9 % (37.0-47.0); Hemoglobin 12.7 g/dl (12.0-16.0); Imm Gran Abs Auto 0.03 X10*3/uL (0.00-0.03); Imm Gran Pct Auto 0.4 % (0.0-0.4); Lymphocytes Absolute Auto 2.1 X10*3/uL (1.2-4.9); Mean Corpuscular HGB Conc 31.8 g/dl (31.0-35.0); Mean Corpuscular Hemoglobin 29.2 pg (27.0-33.0); Mean Corpuscular Volume 91.7 fL (80.0-98.0); Mean Platelet Volume 8.8 fL (9.4-12.3); Monocytes Absolute Auto 0.9 X10*3/uL (0.1-1.2); Monocytes Percent Auto 10.8 % (2-11); Neutrophils Absolute Auto 4.9 x10*3/uL (2.0-8.3); Neutrophils Percent Auto 59.6 % (45-73); Platelet Count 270 X10*3/uL (160-400); Red Blood Count 4.35 X10*6/uL (4.20-5.50); Red Cell Distribution Width 13.4 % (11.0-16.0); White Blood Count 8.2 X10*3/uL (4.8-10.8)
[2022-12-17 16:49] LABS: COVID-19 Test Negative (Negative); IDNOW Serial# 9DB6401D
[2022-12-17 16:50] LABS: Alanine Aminotransferase 18 U/L (0-31); Albumin Level 3.9 g/dL (3.5-5.0); Alkaline Phosphatase 111 U/L (39-117); Anion Gap 12 (12-20); Aspartate Amino Transferase 15 U/L (5-31); Bilirubin Total 0.2 mg/dL (0.0-1.0); Blood Urea Nitrogen 18 mg/dL (9-16); Calcium 9.5 mg/dL (8.4-10.2); Carbon Dioxide 31 mmol/L (22-29); Chloride 103 mmol/L (96-108); Creatinine Clr Calc Pharmacy 89.8; Estimated Glomerular Filt Rate > 60; Glucose Random 84 mg/dL (60-115); Magnesium 1.8 mg/dL (1.6-2.6); Potassium 4.1 mmol/L (3.3-5.1); Sodium 142 mmol/L (135-145)
[2022-12-17 16:59] LABS: Troponin-I High Sensitivity < 2.7 ng/L (<3.5-17.0)
== END 2022-12-17 18:44 | disposition left against medical advice (07) ==
PROVIDERS: Physician Assistant; Emergency Provider Emergency Medicine
DX: R06.02 Shortness of breath (principal); Z20.822 Contact with and (suspected) exposure to COVID-19; I10 Essential (primary) hypertension; I48.91 Unspecified atrial fibrillation; Z95.0 Presence of cardiac pacemaker; Z79.899 Other long term (current) drug therapy; Z79.01 Long term (current) use of anticoagulants; Z99.81 Dependence on supplemental oxygen
CPT/HCPCS: 36415; 71045; 80053; 83735; 84484; 85025; 87635; 93005; 99283

== ENCOUNTER → 2023-02-22 23:59 | Outpatient (BNV) | payer MEDICARE, MEDICAID, SELFPAY ==
--- NOTE | 2023-03-02 11:57 | A.OFFVIS_ITS ---
Intake Intake Visit Reasons: Remote Device Check- [facility] Allergies No Known Allergies Allergy (Verified 09/22/22 09:29) PFSH Medical History Afib Asthma Asthma-COPD overlap syndrome Atrial fib/flutter, transient Diastolic dysfunction HTN (hypertension) Hypothyroid Morbid obesity Nocturnal hypoxemia Nonischemic cardiomyopathy Pacemaker PAF (paroxysmal atrial fibrillation) Pneumonia due to COVID-19 virus Pneumonitis Schizophrenia Schizophrenia Schizophrenia, paranoid Surgical History History of cardiac pacemaker Hx of kidney removal Hx of removal of ovary Family History Father Heart disease Mother Heart disease Social History Household Members: None Housing: Apartment Do you presently have visiting nurse or other home services: Yes Alcohol intake: never Patient Tobacco Use Status: Former Tobacco user Quit Date: 1989 Smoked: 10 years +/- Advance Directives Date on File: 10/30/20 service: No Current occupational status: disabled Office Procedures Cardiac Device Check Cardiac Device Check Details: Date of service- 02/22/2023 ; Battery life >6 years; normal lead parameters; AP 93%; [employer] REP <1%; rare atrial fibrillation episodes. Overall normal device function. [id number] Cardiac Device Interrogation, pacemaker Procedure code (CPT) selection complete Assessment & Plan Assessment & Plan (1) PAF (paroxysmal atrial fibrillation): Code(s): I48.0 - Paroxysmal atrial fibrillation Coding Level of Care Code Procedure Only Diagnoses PAF (paroxysmal atrial fibrillation) I48.0 CPT Codes Cardiac Device Check - Cardiac Device 12: [id number] Cardiac Device Interrogation, pacemaker ([id number])
== END ==
PROVIDERS: Visit Provider Internal Medicine
DX: I48.0 Paroxysmal atrial fibrillation (principal); Z95.0 Presence of cardiac pacemaker
CPT/HCPCS: 93294

== ENCOUNTER 2023-04-10 09:54 | Emergency (ER) | payer MEDICARE, MEDICAID, SELFPAY ==
--- NOTE | ~2023-04-10 | CT_ITS ---
EXAMINATION: CT ABDOMEN AND PELVIS WITHOUT CONTRAST CLINICAL INFORMATION: Right flank pain COMPARISON: None available. TECHNIQUE: Multidetector volumetric imaging was performed from the superior aspect of the liver through the pubic symphysis. Sagittal and coronal reformatted images were obtained on the technologist's workstation. This CT examination was performed using dose optimization techniques as appropriate, variously including the following: *Automated exposure control *Adjustment of mA and/or kV according to patient size (this includes techniques or standardized protocols for targeted exams where dose is matched to indication/reason for exam; i.e. extremities or head) *Use of iterative reconstruction technique DLP: 1176 mGy-cm FINDINGS: LUNG BASES: The visualized lung bases are unremarkable. LIVER, GALLBLADDER, AND BILIARY TREE: The liver is normal in size, shape, and attenuation. No focal hepatic lesion or biliary ductal dilatation is present. The gallbladder is unremarkable with no evidence of radiopaque gallstones, gallbladder wall thickening, or obvious pericholecystic inflammatory changes. PANCREAS: Unremarkable. SPLEEN: Unremarkable. ADRENAL GLANDS: Unremarkable. KIDNEYS AND URETERS: The kidneys are normal in size, shape, and attenuation. No hydronephrosis, hydroureter, or calculi seen. No perinephric stranding. There is a right renal simple cyst measuring 4.4 cm. In the right lower pole there is calcified lesion measuring approximately 1.7 cm.. Further workup is needed. BLADDER: Unremarkable. GASTROINTESTINAL TRACT: Scattered stool and gas is seen throughout the colon without significant distention. The small bowel loops are normal caliber. Appendix is normal caliber with appendicolith within. No free air or free fluid seen. ABDOMINAL WALL: No significant hernia is appreciated. LYMPH NODES: Normal. VASCULAR: Mild osteoarthritic changes of abdominal aorta without aneurysmal dilatation. PELVIC VISCERA: The uterus is anteverted and appears unremarkable. No free air or free fluid seen. OSSEOUS STRUCTURES: Grade 1 anterolisthesis L4-L5 and mild degenerative disc changes L4-L5 and L5-S1 disc levels are noted. CT/CT abdomen pelvis wo IV con IMPRESSION: 1. No acute intra-abdominal process seen. 2. Moderate constipation. 3. No radiopaque urolith or hydroureteronephrosis. 4. There is a complex calcified cortical lesion lower pole right kidney. Needs further workup with CT or MRI with and without contrast. 5. Simple cyst upper pole right kidney no workup needed. Fleischner guidelines were followed.
[2023-04-10 10:05] VITALS: BP 154/90; PULSE 60; RESP 18; TEMP 36.6; O2SAT 95; BMI 54.5
--- NOTE | 2023-04-10 10:47 | ED.ABDPAIN ---
HPI - Abdominal Pain General Chief Complaint: General Medical Stated Complaint: back and abd pain quest kidney infection Time Seen by Provider: 04/10/23 10:13 Source: patient and old records reviewed Mode of arrival: ambulatory Limitations: no limitations History of Present Illness HPI narrative: 67 yo female with PMH of pre diabetes, PAF on xarelto, obesity, PPM, cardiomyopathy, asthma R kidney surgery for cyst removal who presents with c/o being woken with R flank pain this AM that was so severe she felt she couldn't move. She then went to urinate and when she wiped she saw some blood on the tissue she thinks it was from the urine but unsure. She has not had a menses since she was 50. She has no pain now it stopped. She has no n/v. It was not worse with movements. She denies prior stones. MD elicited complaint: flank pain Pertinent past history: other (reports cyst on R kidney with partial nephrectomy 20 years ago at [facility]) Onset (ago): hour(s) (4) Pain Consistency: now resolved Location: R flank Severity: moderate Quality: stabbing Radiation: none Migration to: RLQ Exacerbating factors: nothing Relieving factors: nothing Associated symptoms: hematuria Related Data Home Medications Medication Instructions Recorded Confirmed atorvastatin 80 mg tablet 80 mg PO BEDTIME 07/30/20 09/22/22 levothyroxine 112 mcg tablet 112 mcg PO DAILY@0630 07/30/20 09/22/22 loratadine 10 mg tablet 10 mg PO DAILY 07/30/20 09/22/22 magnesium oxide 400 mg (241.3 mg 400 mg PO DAILY 07/30/20 09/22/22 magnesium) tablet melatonin 5 mg tablet 10 mg PO BEDTIME PRN insomnia 07/30/20 09/22/22 potassium chloride 20 mEq oral 20 meq PO DAILY 07/30/20 09/22/22 packet sertraline 100 mg tablet 100 mg PO DAILY 07/30/20 09/22/22 fluticasone propionate 50 1 spray intranasal BID PRN Allergy 10/25/20 09/22/22 mcg/actuation nasal Symptoms spray,suspension sertraline 50 mg tablet 50 mg PO DAILY 10/25/20 09/22/22 metoprolol tartrate 100 mg tablet 100 mg PO BID 02/11/21 09/22/22 paliperidone palmitate 234 mg/1.5 234 mg IM Q3W 04/15/21 09/22/22 mL [facility] benztropine 1 mg tablet 1 mg PO BID 06/17/21 09/22/22 risperidone 0.5 mg tablet 1 mg PO BEDTIME 06/17/21 09/22/22 risperidone 1 mg tablet 1 mg PO BID@0800,1400 12/18/21 09/22/22 acetaminophen 325 mg tablet 650 mg PO Q4H PRN 01/11/22 09/22/22 fever/headache/pain dgykkzyalpyy-phmfwvvz-quubtp tablet 1 tab PO DAILY 01/11/22 09/22/22 nystatin-triamcinolone 100,000 1 appl topical BID 01/11/22 09/22/22 unit/g-0.1 % topical cream vitamins A,C,O-ipnz-ggqigl 4,296 1 cap PO DAILY 01/11/22 09/22/22 mcg-226 mg-90 mg capsule (PreserVision AREDS) sertraline 25 mg tablet 0 mg PO DAILY 09/22/22 09/22/22 Previous Rx's Medication Instructions Recorded albuterol sulfate 90 mcg/actuation 2 puff PO Q4H PRN for dyspnea #8.5 06/10/22 aerosol inhaler grams rivaroxaban 20 mg tablet (Xarelto) 20 mg PO QPM 90 days #90 tabs 02/01/23 diltiazem HCl 180 mg 180 mg PO DAILY #90 caps 03/25/23 capsule,extended release 24 hr Allergies Allergy/AdvReac Type Severity Reaction Status Date / Time No Known Allergies Allergy Verified 09/22/22 09:29 Review of Systems Review of Systems Constitutional : No Fever, No Chills ENT/Mouth : No sore throat Eyes: No Eye Pain, No Swelling, No Redness Cardiovascular : No Chest Pain, No SOB Respiratory : No Cough, No Sputum, No Wheezing Gastrointestinal : no Nausea, no Vomiting, No Diarrhea, positive abdominal pain Genitourinary : no Dysuria, no urinary frequency, positive Hematuria, positive Flank Pain, no hesitancy Musculoskeletal : No joint pain, No Myalgias Skin : No Skin Lesions, No rash Neuro : No Weakness, No Numbness, No Headache Psych : No Anxiety/Panic, No Depression Heme/Lymph: No Bruising, No Lymphadenopathy Endocrine : No Polyuria, No Polydipsia All other systems reviewed and are negative [facility] Past Medical History Attestation statement: The following information was validated with the patient. Medical History Afib Asthma Asthma-COPD overlap syndrome Atrial fib/flutter, transient Diastolic dysfunction HTN (hypertension) Hypothyroid Morbid obesity Nocturnal hypoxemia Nonischemic cardiomyopathy Pacemaker PAF (paroxysmal atrial fibrillation) Pneumonia due to COVID-19 virus Pneumonitis Schizophrenia Schizophrenia Schizophrenia, paranoid Surgical History History of cardiac pacemaker Hx of kidney removal Hx of removal of ovary Family History Family History Father Heart disease Mother Heart disease Social History Social History Household Members: None Housing: Apartment Do you presently have visiting nurse or other home services: Yes Alcohol intake: never Patient Tobacco Use Status: Former Tobacco user Quit Date: 1989 Smoked: 10 years +/- Smoked in Last 30 Days: No Use of substances other than those prescribed or required for medical reasons: No Advance Directives: Yes Advance Directives on File: Yes Advance Directives Date on File: 10/30/20 service: No Current occupational status: disabled Physical Exam ED Vital Signs: Vital Signs - 24 hr 04/10/23 10:05 Temperature 97.9 F Pulse Rate 60 Respiratory Rate 18 Blood Pressure 154/90 H Pulse Oximetry 95 Oxygen Delivery Method Room Air BMI result Body Mass Index 54.5 Appearance: Alert. Oriented X3. No acute distress. Eyes: Pupils equal, round and reactive to light. ENT: Pharynx normal. Neck: Normal inspection. Neck supple. CVS: Normal heart rate and rhythm. Pulses normal. Respiratory: No respiratory distress. Breath sounds normal. Abdomen: Soft and nontender. obese Back: non-tender Skin: Skin warm and dry. Normal skin color. Normal skin turgor. Extremities: No lower extremity edema. No calf ttp Neuro: Oriented X 3. No motor deficit. No sensory deficit. Course Course Course Narrative: urine negative no further pain - findings on CT scan need to be done as outpatient will need CT scan with contrast Medical Decision Making Medical Decision Making MDM Narrative: 67 yo female with PMH of pre diabetes, PAF on xarelto, obesity, PPM, cardiomyopathy, asthma R kidney surgery for cyst removal here wtih c/o R flank pain that was severe that is now resolved she also believes she had hematuria not vaginal bleeding and she did not have BM or wipe her rectum to suggest rectal bleeding - at this time her pain is resolved and no other symptoms I suspect she might have had renal colic vs cyst vs mass vs UTI will obtain basic labs, UA and CT scan for stone. Differential Diagnosis Differential Diagnoses: The differential diagnosis associated with the presentation includes back strain, renal colic, hematuria Admission/Observation Consideration of admission/observation: Escalation of care including admission/observation considered work up negative no pain can be managed as outpatient Lab Data MDM Lab Attestation statement: I reviewed the patient's lab results. 04/10/23 11:05 04/10/23 11:05 Labs: Lab Results 04/10/23 04/10/23 04/10/23 Range/Units 11:05 11:05 12:03 WBC 7.2 (4.8-10.8) X10*3/uL RBC 4.53 (4.20-5.50) X10*6/uL Hgb 13.3 (12.0-16.0) g/dl Hct 41.3 (37.0-47.0) % MCV 91.2 (80.0-98.0) fL MCH 29.4 (27.0-33.0) pg MCHC 32.2 (31.0-35.0) g/dl RDW 14.0 (11.0-16.0) % Plt Count 274 (160-400) X10*3/uL MPV 8.9 L (9.4-12.3) fL Immature Gran % (Auto) 0.3 (0.0-0.4) % Neut % (Auto) 65.6 (45-73) % Lymph % (Auto) 20.4 (20-40) % [place] % (Auto) 9.4 (2-11) % Eos % (Auto) 3.9 (0-4) % Baso % (Auto) 0.4 (0-2) % Lymph # (Auto) 1.5 (1.2-4.9) X10*3/uL [place] # (Auto) 0.7 (0.1-1.2) X10*3/uL Eos # (Auto) 0.3 (0.0-0.4) X10*3/uL Baso # (Auto) 0.0 (0.0-0.2) X10*3/uL Abs Immat Gran (auto) 0.02 (0.00-0.03) X10*3/uL Absolute Neuts (auto) 4.7 (2.0-8.3) x10*3/uL Absolute Nucleated RBC 0.000 (0.0-0.012) X10*3/uL Nucleated RBC % (auto) 0.0 (0.0-0.2) /100WBC Sodium 143 (135-145) mmol/L Potassium 4.5 (3.3-5.1) mmol/L Chloride 109 H (96-108) mmol/L Carbon Dioxide 29 (22-29) mmol/L Anion Gap 10 L (12-20) BUN 9 (9-16) mg/dL Creatinine 0.71 (0.5-1.4) mg/dL Estim Creat Clear Calc 105.9 Estimated GFR > 60 Random Glucose 96 (60-115) mg/dL Calcium 9.8 (8.4-10.2) mg/dL Magnesium 1.9 (1.6-2.6) mg/dL Total Bilirubin 0.2 (0.0-1.0) mg/dL Direct Bilirubin < 0.2 (0.0-0.5) mg/dL AST 16 (5-31) U/L ALT 18 (0-31) U/L Alkaline Phosphatase 107 (39-117) U/L Total Protein 7.6 (6.5-8.0) g/dL Albumin 3.8 (3.5-5.0) g/dL Lipase 35 (8-78) U/L Urine Color Yellow Urine Appearance Clear Urine pH 8.0 (5.0-9.0) Ur Specific [place] <= 1.005 (1.005-1.025) Urine Protein Negative (Neg-Trace) mg/dL Urine Glucose (UA) Negative (Negative) mg/dL Urine Ketones Negative (Negative) mg/dL Urine Blood Negative (Negative) Urine Nitrite Negative (Negative) Ur Leukocyte Esterase Small (1+) H (Negative) Urine RBC 0-2 (0-2) /HPF Urine WBC 0-5 (0-5) /HPF Ur Squamous Epith Cells 0-2 (0-2) /HPF Urine Bacteria None Seen (None Seen) Hyaline Casts 0-2 (0-2) /LPF Independent Interpretation I performed an independent interpretation of an: CT Scan (no stone no hydronephrosis) Radiology Impression Discussion of test interpretation with radiology: I have reviewed the radiologist's reading. External Record Review External record reviewed: Inpatient record Discharge Plan Discharge Clinical Impression: Acute right flank pain Hematuria Qualifiers: Hematuria type: unspecified type Qualified Code(s): R31.9 - Hematuria, unspecified Patient Disposition: Home, Self-Care Instructions: Flank Pain (ED), Hematuria (ED) Additional Instructions: no acute findings to suggest symptoms though there are cysts on R kidney that need further workup with your doctor as soon as possible including a renal CT scan with IV contrast please call your doctor this week. return for worsening pain, fevers, vomiting, increased bleeding - no blood in urine now but please monitor. CT/CT abdomen pelvis wo IV con IMPRESSION: 1.? No acute intra-abdominal process seen. 2.? Moderate constipation. 3.? No radiopaque urolith or hydroureteronephrosis. 4. There is a complex calcified cortical lesion lower pole right kidney. Needs further workup with CT or MRI with and without contrast. 5. Simple cyst upper pole right kidney no workup needed. Prescriptions: No Action albuterol sulfate 90 mcg/actuation HFA aerosol inhaler 2 puff PO Q4H PRN (Reason: for dyspnea) Qty: 8.5 10RF Xarelto 20 mg tablet 20 mg PO QPM 90 Days Qty: 90 3RF diltiazem HCl 180 mg capsule,extended release 24hr 180 mg PO DAILY Qty: 90 3RF atorvastatin 80 mg tablet 80 mg PO BEDTIME sertraline 100 mg tablet 100 mg PO DAILY Rx Instructions: PT TAKES 100 MG AND 50 MG TOGETHER potassium chloride 20 mEq packet 20 meq PO DAILY magnesium oxide 400 mg (241.3 mg magnesium) tablet 400 mg PO DAILY loratadine 10 mg tablet 10 mg PO DAILY levothyroxine 112 mcg tablet 112 mcg PO DAILY@0630 melatonin 5 mg tablet 10 mg PO BEDTIME PRN (Reason: insomnia) Invega Sustenna 234 mg/1.5 mL syringe 234 mg IM Q3W Rx Instructions: pt unsure when last received injection, thinks 01/06 or 01/07 sertraline 50 mg Tablet 50 mg PO DAILY Rx Instructions: PATIENT TAKES 100 MG AND 50 MG TABLETS TOGETHER fluticasone propionate 50 mcg/actuation [place],Suspension 1 spray INTRANASAL BID PRN (Reason: Allergy Symptoms) acetaminophen 325 mg Tablet 650 mg PO Q4H PRN (Reason: fever/headache/pain) nystatin-triamcinolone 100,000-0.1 unit/g-% cream 1 appl TOPICAL BID ajlbrrgxzqhb-euqgwifu-swfegl Tablet 1 tab PO DAILY PreserVision AREDS 14,375-226-200 afpt-rj-iapt Capsule 1 cap PO DAILY metoprolol tartrate 100 mg tablet 100 mg PO BID risperidone 0.5 mg tablet 1 mg PO BEDTIME benztropine 1 mg tablet 1 mg PO BID risperidone 1 mg tablet 1 mg PO BID@0800,1400 sertraline 25 mg tablet 0 mg PO DAILY
[2023-04-10 11:10] LABS: MANUAL DIFF FLAG NO
[2023-04-10 11:12] LABS: Basophils Percent Auto 0.4 % (0-2); Eosinophils Absolute Auto 0.3 X10*3/uL (0.0-0.4); Eosinophils Percent Auto 3.9 % (0-4); Hematocrit 41.3 % (37.0-47.0); Hemoglobin 13.3 g/dl (12.0-16.0); Imm Gran Abs Auto 0.02 X10*3/uL (0.00-0.03); Imm Gran Pct Auto 0.3 % (0.0-0.4); Lymphocytes Absolute Auto 1.5 X10*3/uL (1.2-4.9); Lymphocytes Percent Auto 20.4 % (20-40); Mean Corpuscular HGB Conc 32.2 g/dl (31.0-35.0); Mean Corpuscular Hemoglobin 29.4 pg (27.0-33.0); Mean Corpuscular Volume 91.2 fL (80.0-98.0); Mean Platelet Volume 8.9 fL (9.4-12.3); Monocytes Absolute Auto 0.7 X10*3/uL (0.1-1.2); Monocytes Percent Auto 9.4 % (2-11); Neutrophils Absolute Auto 4.7 x10*3/uL (2.0-8.3); Neutrophils Percent Auto 65.6 % (45-73); Platelet Count 274 X10*3/uL (160-400); Red Blood Count 4.53 X10*6/uL (4.20-5.50); White Blood Count 7.2 X10*3/uL (4.8-10.8)
[2023-04-10 11:24] LABS: Alanine Aminotransferase 18 U/L (0-31); Albumin Level 3.8 g/dL (3.5-5.0); Alkaline Phosphatase 107 U/L (39-117); Anion Gap 10 (12-20); Aspartate Amino Transferase 16 U/L (5-31); Bilirubin Direct < 0.2 mg/dL (0.0-0.5); Bilirubin Total 0.2 mg/dL (0.0-1.0); Blood Urea Nitrogen 9 mg/dL (9-16); Calcium 9.8 mg/dL (8.4-10.2); Carbon Dioxide 29 mmol/L (22-29); Chloride 109 mmol/L (96-108); Creatinine Clr Calc Pharmacy 105.9; Estimated Glomerular Filt Rate > 60; Glucose Random 96 mg/dL (60-115); Lipase 35 U/L (8-78); Magnesium 1.9 mg/dL (1.6-2.6); Potassium 4.5 mmol/L (3.3-5.1); Sodium 143 mmol/L (135-145); Total Protein 7.6 g/dL (6.5-8.0)
[2023-04-10 12:08] LABS: Appearance Urine Clear; Color Urine Yellow; Glucose Urine UA Negative (Negative); Leukocyte Esterase Urine Small (1+) (Negative); Nitrite Urine Negative (Negative); Specific Gravity - Urine <= 1.005 (1.005-1.025); UMIC TRIGGER UACC YES; Urine Blood Negative (Negative); Urine Ketones Negative (Negative); Urine Protein Negative (Neg-Trace)
[2023-04-10 12:16] LABS: Bacteria Urine None Seen (None Seen); Hyaline Casts Urine 0-2 /LPF (0-2); RBC Urine 0-2 /HPF (0-2); Squamous Epithelial Cell Urine 0-2 /HPF (0-2); UACC Culture Trigger YES; WBC Urine 0-5 /HPF (0-5)
== END 2023-04-10 12:46 | disposition home or self-care (01) ==
PROVIDERS: Emergency Provider Emergency Medicine
DX: R10.9 Unspecified abdominal pain (principal); R31.9 Hematuria, unspecified; I10 Essential (primary) hypertension; I48.0 Paroxysmal atrial fibrillation; E66.9 Obesity, unspecified; Z68.43 Body mass index [BMI] 50.0-59.9, adult; Z95.0 Presence of cardiac pacemaker; Z79.01 Long term (current) use of anticoagulants; Z79.899 Other long term (current) drug therapy
CPT/HCPCS: 36415; 74176; 80048; 80076; 81001; 83690; 83735; 85025; 87086; 99283; 99284

== ENCOUNTER 2023-05-11 13:13 | Outpatient (AMB) | payer MEDICARE, MEDICAID, SELFPAY ==
[2023-05-11 13:23] VITALS: BP 116/70; PULSE 79; BMI 53.9
--- NOTE | 2023-05-11 13:23 | MHC.OFFVIS ---
Intake Vital Signs 05/11/23 13:23 Height 5 ft 3 in Weight 304 lb 3.806 oz BMI 53.9 BP 116/70 Blood Pressure Location Lt brachial Position Sitting Pulse 79 Intake Visit Reasons: 6 mth follow-up Intake Note: 6 month follow up Mobile Health Vehicle Operator Required: No Accompanied by: Self / Same As Patient Allergies No Known Allergies Allergy (Verified 05/11/23 13:25) Medication List - Last Reconciled 05/11/23 by Reno Sotomayor MD acetaminophen 650 mg PO Q4H PRN albuterol sulfate 90 mcg/actuation 2 puffs PO Q4H PRN atorvastatin 80 mg PO BEDTIME benztropine 1 mg PO BID diltiazem HCl 180 mg PO DAILY fluticasone propionate 50 mcg/actuation 1 spray intranasal BID PRN levothyroxine 112 mcg PO DAILY@0630 loratadine 10 mg PO DAILY magnesium oxide 400 mg PO DAILY melatonin 10 mg PO BEDTIME PRN metoprolol tartrate 100 mg PO BID ykmanlugxhwo-dwwhcygm-fqprzi 1 tab PO DAILY nystatin-triamcinolone 100,000-0.1 unit/g-% 1 appl topical BID paliperidone palmitate (Invega Sustenna) 234 mg IM Q3W risperidone 1 mg PO BEDTIME risperidone 1 mg PO BID@0800,1400 rivaroxaban (Xarelto) 20 mg PO QPM 90 days sertraline 100 mg PO DAILY sertraline 50 mg PO DAILY sertraline 25 mg PO DAILY vitamins A,C,Y-vbgs-oflmlq 4,296 mcg-226 mg-90 mg (PreserVision AREDS) 1 cap PO DAILY HPI HPI Comments History of Present Illness Details Shahla returns for follow-up regarding atrial fibrillation. She has history of atrial fibrillation episodes as well as tachy/Santi syndromes and has a permanent pacemaker placed. Risk history noncompliance in the past and she used to be on Multaq. However, because of concern about compliance it was actually stop. She has been only on diltiazem and metoprolol. In spite of her obesity, she has actually been doing generally okay. No recent episodes of clinically significant atrial fibrillation. Otherwise, she states she is doing fine. No new cardiac symptoms. Weight is just about the same as before. [facility] Medical History Afib Asthma Asthma-COPD overlap syndrome Atrial fib/flutter, transient Diastolic dysfunction HTN (hypertension) Hypothyroid Morbid obesity Nocturnal hypoxemia Nonischemic cardiomyopathy Pacemaker PAF (paroxysmal atrial fibrillation) Pneumonia due to COVID-19 virus Pneumonitis Schizophrenia Schizophrenia Schizophrenia, paranoid Surgical History History of cardiac pacemaker Hx of kidney removal Hx of removal of ovary Family History Father Heart disease Mother Heart disease Social History Household Members: None Housing: Apartment Do you presently have visiting nurse or other home services: Yes Alcohol intake: never Patient Tobacco Use Status: Former Tobacco user Quit Date: 1989 Smoked: 10 years +/- Advance Directives Date on File: 10/30/20 service: No Current occupational status: disabled Review of Systems Const Denies weakness ENT Denies dizziness Card Denies chest pain, Denies chest pain with activity, Denies syncope, Denies rapid heart rate, Denies pedal edema, Denies edema, Denies leg edema, Denies lightheadedness, Denies palpitations, Denies dyspnea, Denies dyspnea on exertion and Denies orthopnea Resp Denies cough, Denies dyspnea and Denies dyspnea on exertion GI Denies hematochezia and Denies change in stool character Musc Denies abnormal gait, Denies muscle cramps, Denies muscle weakness, Denies numbness, Denies radiating pain into limb and Denies tingling Neuro Denies abnormal gait, Denies dizziness, Denies syncope, Denies numbness, Denies tingling and Denies weakness Endo Denies palpitations Physical Exam Vital Signs: Last Vital Signs Pulse 79 05/11/23 13:23 BP 116/70 05/11/23 13:23 BMI result Body Mass Index 53.9 Const General: comfortable and no acute distress Orientation/consciousness: patient oriented x3 HEENT Other: Unremarkable Head: Yes normal to inspection Neck Neck: Yes normal visual inspection Chest Chest palpation & inspection: normal inspection of the chest Resp Auscultation: clear to auscultation bilaterally Cardio Palpation: normal PMI Heart sounds: S1 normal heart sound present, S2 normal heart sound present, no gallops, no murmurs and no rubs GI Palpation (GI): Soft to palpation Back/Spine/Pelvis Other: unremarkable Skin General skin exam: no rashes or lesions noted Neuro General: patient oriented x3 Extrem General: Yes normal to inspection Psych Mental Status: mental status grossly normal Assessment & Plan Assessment & Plan (1) PAF (paroxysmal atrial fibrillation): Code(s): I48.0 - Paroxysmal atrial fibrillation Plan: Based on the last remote transmission, no significant atrial fibrillation. Continue metoprolol and diltiazem. Continue anticoagulation. 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 Being followed remotely. (3) Nonischemic cardiomyopathy: Code(s): I42.8 - Other cardiomyopathies Plan: Per [facility] records, there is a history of cardiomyopathy with LVEF of 20-25% in 2017. Myocardial perfusion imaging study from [facility] from 2016 shows normal perfusion. This might be tachycardia induced cardiomyopathy related to atrial fibrillation. Last echo from 2021-LVEF of 65-70% with moderate diastolic dysfunction. Myocardial perfusion imaging study from 2021-reversible distal anterior defect but improving with CT attenuation correction and hence thought to be rather from soft tissue attenuation artifact. (4) MARGOTH (obstructive sleep apnea): Code(s): G47.33 - Obstructive sleep apnea (adult) (pediatric) Plan: Advised to follow-up with pulmonary. (5) Morbid obesity: Code(s): E66.01 - Morbid (severe) obesity due to excess calories Plan: Previously referred to bariatric but she is not willing to follow-up. Coding Level of Care Code Est Pt Level 4 (61618) Diagnoses PAF (paroxysmal atrial fibrillation) I48.0 Tachy-santi syndrome I49.5 Nonischemic cardiomyopathy I42.8 MARGOTH (obstructive sleep apnea) G47.33 Morbid obesity E66.01
== END 2023-05-11 13:53 | disposition home or self-care (01) ==
PROVIDERS: Visit Provider Internal Medicine
DX: I48.0 Paroxysmal atrial fibrillation (principal); I49.5 Sick sinus syndrome; I42.8 Other cardiomyopathies; G47.33 Obstructive sleep apnea (adult) (pediatric); E66.01 Morbid (severe) obesity due to excess calories
CPT/HCPCS: 99214

== ENCOUNTER → 2023-05-11 13:13 | Outpatient (BNVA) | payer MEDICARE, MEDICAID, SELFPAY | PROVIDERS: Visit Provider Internal Medicine | DX: I48.0 Paroxysmal atrial fibrillation (principal); I49.5 Sick sinus syndrome; I42.8 Other cardiomyopathies; E66.01 Morbid (severe) obesity due to excess calories; G47.33 Obstructive sleep apnea (adult) (pediatric); Z68.43 Body mass index [BMI] 50.0-59.9, adult | CPT/HCPCS: 99212 ==

== ENCOUNTER → 2023-05-24 23:59 | Outpatient (BNV) | payer MEDICARE, MEDICAID, SELFPAY ==
--- NOTE | 2023-05-25 14:08 | A.OFFVIS_ITS ---
Intake Intake Visit Reasons: Remote Device Check- [facility] Allergies No Known Allergies Allergy (Verified 05/11/23 13:25) PFS Medical History Afib Asthma Asthma-COPD overlap syndrome Atrial fib/flutter, transient Diastolic dysfunction HTN (hypertension) Hypothyroid Morbid obesity Nocturnal hypoxemia Nonischemic cardiomyopathy Pacemaker PAF (paroxysmal atrial fibrillation) Pneumonia due to COVID-19 virus Pneumonitis Schizophrenia Schizophrenia Schizophrenia, paranoid Surgical History History of cardiac pacemaker Hx of kidney removal Hx of removal of ovary Family History Father Heart disease Mother Heart disease Social History Household Members: None Housing: Apartment Do you presently have visiting nurse or other home services: Yes Alcohol intake: never Patient Tobacco Use Status: Former Tobacco user Quit Date: 1989 Smoked: 10 years +/- Advance Directives Date on File: 10/30/20 service: No Current occupational status: disabled Office Procedures Cardiac Device Check Cardiac Device Check Details: Date of service- 05/24/2023 ; Battery life 6 years; normal lead parameters; AP 95%; [employer] MA[employer]GER [employer]ODUCTION <1 %; no significant arrhythmias. Overall normal device function. [id number] Cardiac Device Interrogation, pacemaker Procedure code (CPT) selection complete Assessment & Plan Assessment & Plan (1) Tachy-alicia syndrome: Code(s): I49.5 - Sick sinus syndrome (2) PAF (paroxysmal atrial fibrillation): Code(s): I48.0 - Paroxysmal atrial fibrillation Coding Level of Care Code Procedure Only Diagnoses Tachy-alicia syndrome I49.5 PAF (paroxysmal atrial fibrillation) I48.0 CPT Codes Cardiac Device Check - Cardiac Device 12: [id number] Cardiac Device Interrogation, pacemaker ([id number])
== END ==
PROVIDERS: Visit Provider Internal Medicine
DX: I48.0 Paroxysmal atrial fibrillation (principal); Z95.0 Presence of cardiac pacemaker
CPT/HCPCS: 93294

== ENCOUNTER → 2023-08-23 23:59 | Outpatient (BNV) | payer MEDICARE, MEDICAID, SELFPAY ==
--- NOTE | 2023-08-24 15:49 | MHC.OFFVIS ---
Intake Intake Visit Reasons: Remote Device Check- [facility] Allergies No Known Allergies Allergy (Verified 05/11/23 13:25) PFSH Medical History Afib Asthma Asthma-COPD overlap syndrome Atrial fib/flutter, transient Diastolic dysfunction HTN (hypertension) Hypothyroid Morbid obesity Nocturnal hypoxemia Nonischemic cardiomyopathy Pacemaker PAF (paroxysmal atrial fibrillation) Pneumonia due to COVID-19 virus Pneumonitis Schizophrenia Schizophrenia Schizophrenia, paranoid Surgical History History of cardiac pacemaker Hx of kidney removal Hx of removal of ovary Family History Father Heart disease Mother Heart disease Social History Household Members: None Housing: Apartment Do you presently have visiting nurse or other home services: Yes Alcohol intake: never Comment: PT SLEEPING Patient Tobacco Use Status: Former Tobacco user Quit Date: 1989 Smoked: 10 years +/- Advance Directives Date on File: 10/30/20 service: No Current occupational status: disabled Office Procedures Cardiac Device Check Cardiac Device Check Details: Date of service- 08/23/2023 ; Battery life >5 years; normal lead parameters; AP 94%; ON CAR 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 Mostly minutes. One episode for about 2 hours. Rapid rates noted. Otherwise, normal device function. [id number] Cardiac Device Interrogation, pacemaker Procedure code (CPT) selection complete Assessment & Plan Assessment & Plan (1) Nonischemic cardiomyopathy: Code(s): I42.8 - Other cardiomyopathies (2) Tachy-alicia syndrome: Code(s): I49.5 - Sick sinus syndrome (3) PAF (paroxysmal atrial fibrillation): Code(s): I48.0 - Paroxysmal atrial fibrillation Plan x Coding Level of Care Code Procedure Only Diagnoses Nonischemic cardiomyopathy I42.8 Tachy-alicia syndrome I49.5 PAF (paroxysmal atrial fibrillation) I48.0 CPT Codes Cardiac Device Check - Cardiac Device 12: [id number] Cardiac Device Interrogation, pacemaker ([id number])
== END ==
PROVIDERS: Visit Provider Internal Medicine
DX: I48.0 Paroxysmal atrial fibrillation (principal); Z95.0 Presence of cardiac pacemaker
CPT/HCPCS: 93294

== ENCOUNTER → 2023-10-08 13:26 | Outpatient (BNVA) | payer MEDICARE, MEDICAID, SELFPAY | PROVIDERS: Visit Provider Nurse Practitioner Family | DX: J44.9 Chronic obstructive pulmonary disease, unspecified (principal); G47.33 Obstructive sleep apnea (adult) (pediatric); G47.34 Idiopathic sleep related nonobstructive alveolar hypoventilation; I51.89 Other ill-defined heart diseases | CPT/HCPCS: 99212 ==

== ENCOUNTER 2023-10-25 13:31 | Outpatient (AMB) | payer MEDICARE, MEDICAID, SELFPAY ==
--- NOTE | 2023-10-25 13:55 | A.OFFVIS_ITS ---
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: No Accompanied by: Self / Same As Patient Allergies No Known Allergies Allergy (Verified 10/25/23 13:57) Medication List - Last Reconciled 10/25/23 by Reno Sotomayor MD acetaminophen 650 mg PO Q4H PRN albuterol sulfate 90 mcg/actuation 2 puffs PO Q4H PRN albuterol sulfate 90 mcg/actuation 2 puffs inhalation Q4-6H PRN atorvastatin 40 mg PO DAILY benztropine 1 mg PO BID diltiazem HCl 240 mg PO DAILY fluticasone propionate 50 mcg/actuation 1 spray intranasal BID PRN levothyroxine 112 mcg PO DAILY@0630 loratadine 10 mg PO DAILY magnesium oxide 400 mg PO DAILY melatonin 10 mg PO BEDTIME PRN metoprolol tartrate 100 mg PO BID 90 days mpilxopilfup-inkgzvky-gfcqfh 1 tab PO DAILY nystatin-triamcinolone 100,000-0.1 unit/g-% 1 appl topical BID paliperidone palmitate (Invega Sustenna) 234 mg IM Q3W rivaroxaban (Xarelto) 20 mg PO QPM 90 days sertraline 100 mg PO DAILY sertraline 50 mg PO DAILY sertraline 25 mg PO DAILY vitamins A,C,Z-xcxh-tzwusy 4,296 mcg-226 mg-90 mg (PreserVision AREDS) 1 cap PO DAILY HPI HPI Comments History of Present Illness Details Shahla returns for follow-up regarding atrial fibrillation. She has history of atrial fibrillation episodes as well as tachy/Santi syndromes and has a permanent pacemaker placed. She was on Multaq in the past but because of compliance issues, it was stopped. She remains on diltiazem/metoprolol. For the most part she is doing fine. She does get intermittent chest pain where she feels like a discomfort in the chest going up to her throat area. However, etiology is not clear she has not known to have any coronary disease. N onexertional symptoms. Somewhat random. [facility] Medical History (Updated 10/08/23 @ 14:13 by Valencia Crooks NP) Nonischemic cardiomyopathy PAF (paroxysmal atrial fibrillation) Nocturnal hypoxemia Morbid obesity Asthma-COPD overlap syndrome Diastolic dysfunction Pneumonitis Schizophrenia, paranoid Afib Schizophrenia Atrial fib/flutter, transient Pneumonia due to COVID-19 virus Pacemaker Hypothyroid Schizophrenia HTN (hypertension) Asthma Surgical History History of cardiac pacemaker Hx of kidney removal Hx of removal of ovary Family History Father Heart disease Mother Heart disease Social History Household Members: None Housing: Apartment Do you presently have visiting nurse or other home services: Yes Alcohol intake: never Patient Tobacco Use Status: Former Tobacco user Quit Date: 1989 Years Smoked: 10 years +/- Advance Directives Date on File: 10/30/20 service: No Current occupational status: disabled Review of Systems Const Denies weakness ENT Denies dizziness Card Denies chest pain with activity, Denies syncope, Denies rapid heart rate, Denies pedal edema, Denies edema, Denies leg edema, Denies lightheadedness, Denies palpitations, Denies dyspnea and Denies orthopnea Resp Denies cough and Denies dyspnea GI Denies hematochezia and Denies change in stool character Musc Denies abnormal gait, Denies muscle cramps, Denies muscle weakness, Denies numbness, Denies radiating pain into limb and Denies tingling Neuro Denies abnormal gait, Denies dizziness, Denies syncope, Denies numbness, Denies tingling and Denies weakness Endo Denies palpitations Physical Exam Vital Signs: Last Vital Signs Pulse 60 10/25/23 13:56 BP 128/70 10/25/23 13:56 BMI result Body Mass Index 52.7 Const General: comfortable and no acute distress Orientation/consciousness: patient oriented x3 HEENT Other: Unremarkable Head: Yes normal to inspection Neck Neck: Yes normal visual inspection Chest Chest palpation & inspection: normal inspection of the chest Resp Auscultation: clear to auscultation bilaterally Cardio Palpation: normal PMI Heart sounds: S1 normal heart sound present, S2 normal heart sound present, no gallops, no murmurs and no rubs GI Palpation (GI): Soft to palpation Back/Spine/Pelvis Other: unremarkable Skin General skin exam: no rashes or lesions noted Neuro General: patient oriented x3 Extrem General: Yes normal to inspection Psych Mental Status: mental status grossly normal Office Procedures Cardiac Device Check Cardiac Device Check Details: Pacemaker interrogated today. Dual-chamber device, programmed DDDR mode. Battery status more than 8 years. Normal lead parameters. Atrial pacing 93%. Ventricular pacing less than 1%. Overall atrial fibrillation less than 1%. Recent atrial fibrillation episode lasting for about 3 hours. Overall, normal device function. [id number] Cardiac Device Check, pacemaker dual lead Procedure code (CPT) selection complete EKG Details: EKG with atrial paced rhythm at 60/Min. [id number], Complete Assessment & Plan Assessment & Plan (1) PAF (paroxysmal atrial fibrillation): Code(s): I48.0 - Paroxysmal atrial fibrillation Plan: Rare episodes. Continue metoprolol/diltiazem. Continue anticoagulation. 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 Being followed remotely. (3) Nonischemic cardiomyopathy: Code(s): I42.8 - Other cardiomyopathies Plan: Per [facility] records, there is a history of cardiomyopathy with LVEF of 20-25% in 2017. Myocardial perfusion imaging study from [facility] from 2017 shows normal perfusion. This might be tachycardia induced cardiomyopathy related to atrial fibrillation. Last echo from 2021-LVEF of 65-70% with moderate diastolic dysfunction. Myocardial perfusion imaging study from 2021-reversible distal anterior defect but improving with CT attenuation correction and hence thought to be rather from soft tissue attenuation artifact. She is again complaining of chest pain going up into her throat area which is random and nonspecific. Unclear what she is describing. Get a pharmacological stress test. (4) MARGOTH (obstructive sleep apnea): Code(s): G47.33 - Obstructive sleep apnea (adult) (pediatric) Plan: Follow-up with pulmonary. (5) Morbid obesity: Code(s): E66.01 - Morbid (severe) obesity due to excess calories Plan: Previously referred to bariatric but she is not willing to follow-up. Orders: Orders CA lexiscan stress w sami Today I20.9 - Angina pectoris, unspecified NM cardiolite stress test Today R07.2 - Precordial pain Coding Level of Care Code Est Pt Level 4 (76863) Diagnoses PAF (paroxysmal atrial fibrillation) I48.0 Tachy-santi syndrome I49.5 Nonischemic cardiomyopathy I42.8 MARGOTH (obstructive sleep apnea) G47.33 Morbid obesity E66.01 CPT Codes Cardiac Device Check - Cardiac Device 2: [id number] Cardiac Device Check, pacemaker dual lead ([id number]) EKG - CPT: 35880-Rlzlpmtsawfgkgbkf, Complete ([id number])
[2023-10-25 13:56] VITALS: BP 128/70; PULSE 60; BMI 52.7
== END 2023-10-25 14:14 | disposition home or self-care (01) ==
PROVIDERS: Visit Provider Internal Medicine
DX: I48.0 Paroxysmal atrial fibrillation (principal); I49.5 Sick sinus syndrome; I42.8 Other cardiomyopathies; G47.33 Obstructive sleep apnea (adult) (pediatric); E66.01 Morbid (severe) obesity due to excess calories; Z95.0 Presence of cardiac pacemaker
CPT/HCPCS: 93280; 99214

== ENCOUNTER → 2023-10-25 13:31 | Outpatient (BNVA) | payer MEDICARE, MEDICAID, SELFPAY | PROVIDERS: Visit Provider Internal Medicine | DX: Z45.018 Encounter for adjustment and management of other part of cardiac pacemaker (principal); I49.5 Sick sinus syndrome; I42.8 Other cardiomyopathies; G47.33 Obstructive sleep apnea (adult) (pediatric); E66.01 Morbid (severe) obesity due to excess calories; Z68.43 Body mass index [BMI] 50.0-59.9, adult | CPT/HCPCS: 93005; 93280; 99212 ==

== ENCOUNTER → 2023-11-22 23:59 | Outpatient (BNV) | payer MEDICARE, MEDICAID, SELFPAY ==
--- NOTE | 2023-11-23 13:53 | MHC.OFFVIS ---
Intake Intake Visit Reasons: Remote Device Check- [facility] Allergies No Known Allergies Allergy (Verified 10/25/23 13:57) [facility] Medical History (Updated 10/08/23 @ 14:13 by Valencia Crooks NP) Nonischemic cardiomyopathy PAF (paroxysmal atrial fibrillation) Nocturnal hypoxemia Morbid obesity Asthma-COPD overlap syndrome Diastolic dysfunction Pneumonitis Schizophrenia, paranoid Afib Schizophrenia Atrial fib/flutter, transient Pneumonia due to COVID-19 virus Pacemaker Hypothyroid Schizophrenia HTN (hypertension) Asthma Surgical History History of cardiac pacemaker Hx of kidney removal Hx of removal of ovary Family History Father Heart disease Mother Heart disease Social History Household Members: None Housing: Apartment Do you presently have visiting nurse or other home services: Yes Alcohol intake: never Patient Tobacco Use Status: Former Tobacco user Quit Date: 1989 Smoked: 10 years +/- Advance Directives Date on File: 10/30/20 service: No Current occupational status: disabled Office Procedures Cardiac Device Check Cardiac Device Check Details: Date of service- 11/22/2023 ; Battery life >5 years; normal lead parameters; AP 91%; 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 Longest is 6 hours 27 minutes. Overall normal device function. [id number] Cardiac Device Interrogation, pacemaker Procedure code (CPT) selection complete Assessment & Plan Assessment & Plan (1) PAF (paroxysmal atrial fibrillation): Code(s): I48.0 - Paroxysmal atrial fibrillation Plan x Coding Level of Care Code Procedure Only Diagnoses PAF (paroxysmal atrial fibrillation) I48.0 CPT Codes Cardiac Device Check - Cardiac Device 12: [id number] Cardiac Device Interrogation, pacemaker ([id number])
== END ==
PROVIDERS: Visit Provider Internal Medicine
DX: I48.0 Paroxysmal atrial fibrillation (principal); Z95.0 Presence of cardiac pacemaker
CPT/HCPCS: 93294

== ENCOUNTER → 2024-02-21 23:59 | Outpatient (BNV) | payer MEDICARE, MEDICAID, SELFPAY ==
--- NOTE | 2024-02-27 11:12 | A.OFFVIS_ITS ---
Intake Visit Reasons: Remote Device Check- [facility] Allergies No Known Allergies Allergy (Verified 02/22/24 09:16) [facility] Medical History (Updated 10/08/23 @ 14:13 by Valencia Crooks NP) Nonischemic cardiomyopathy PAF (paroxysmal atrial fibrillation) Nocturnal hypoxemia Morbid obesity Asthma-COPD overlap syndrome Diastolic dysfunction Pneumonitis Schizophrenia, paranoid Afib Schizophrenia Atrial fib/flutter, transient Pneumonia due to COVID-19 virus Pacemaker Hypothyroid Schizophrenia HTN (hypertension) Asthma Surgical History History of cardiac pacemaker Hx of kidney removal Hx of removal of ovary Family History Father Heart disease Mother Heart disease Social History Household Members: None Housing: Apartment Do you presently have visiting nurse or other home services: Yes Alcohol intake: never Patient Tobacco Use Status: Former Tobacco user Years Smoked: 10 years +/- Advance Directives Date on File: 10/30/20 service: No Current occupational status: disabled Office Procedures Cardiac Device Check Cardiac Device Check Details: Date of service- 02/21/2024 ; Battery life >5 years; normal lead parameters; AP 95%; 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 Overall normal device function. [id number] Cardiac Device Interrogation, pacemaker Procedure code (CPT) selection complete Assessment & Plan Assessment & Plan (1) PAF (paroxysmal atrial fibrillation): Code(s): I48.0 - Paroxysmal atrial fibrillation Category: Medical Plan x Coding Level of Care Code Procedure Only Diagnoses PAF (paroxysmal atrial fibrillation) I48.0 CPT Codes Cardiac Device Check - Cardiac Device 12: [id number] Cardiac Device Interrogation, pacemaker ([id number])
== END ==
PROVIDERS: PCP Internal Medicine; Visit Provider Internal Medicine
DX: I48.0 Paroxysmal atrial fibrillation (principal); Z95.0 Presence of cardiac pacemaker
CPT/HCPCS: 93294

== ENCOUNTER 2024-02-22 08:57 | Outpatient (AMB) | payer MEDICARE, MEDICAID, SELFPAY ==
[2024-02-22 09:14] VITALS: PULSE 60; O2SAT 90; BMI 54.0
--- NOTE | 2024-02-22 09:14 | MHC.OFFVIS ---
Vital Signs 02/22/24 09:14 Height 5 ft 3 in Weight 305 lb BMI 54.0 Pulse 60 Pulse Source Pulse Oximeter Pulse Oximetry (%) 90 L Oxygen Delivery Method Room Air Intake Visit Reasons: asthma Digital X Ray Service Engineer Required: No Allergies No Known Allergies Allergy (Verified 02/22/24 09:16) HPI Comments Details: The patient is a 68 old woman a known history atrial fibrillation, asthma and diastolic dysfunction was initially admitted to hospital in July 2021 with severe COVID with COVID pneumonia and respiratory failure. She did have CT of the chest demonstrating bilateral ground-glass opacities and areas of consolidation. She was discharged oxygen. She using the regularly. In addition she was readmitted to the in October atrial fibrillation by rapid ventricular response. Patient is wondering if she has asthma or COPD. And does causing breath. Explained to her that her shortness of breath is multifactorial. She denies any denies any sputum. Denies any chest pains pressure. She does have a tremor is related to medications she has been taking for many years. Patient does daytime drowsiness. Her Mcintosh score is 10/24. The patient needs to undergo a in-lab study. 06/17/2021 the patient is here for a pulmonary follow-up visit. Overall the patient has been feeling little better. She did try the Anoro inhaler but was not effective. She still complaining of shortness of breath time. She also has a history atrial fibrillation so we have to be careful with her beta agonist therapy. In the meantime the patient still has oxygen at. She did undergo an in-lab sleep study demonstrating an AHI of less than 5. However she does have a REM related sleep disorder. During the whole night the patient desaturated down to the high 70s. In addition to that she has been 40 minutes below 88%. Therefore the patient still qualifies for oxygen likely due to her underlying chronic respiratory failure and obstructive airway disease. In addition to that due to COVID infection. The patient already has oxygen through [facility]. Therefore I will send a recent vacation prescription nor for her to continue using the oxygen at 2 L at nighttime. The patient does not qualify for CPAP at this time. I will also provide her with a short-acting beta agonist that she would use only as needed. Needs to be very careful with taking too much albuterol that can potentially worsen her atrial fibrillation control. The patient has been struggling with her weight. She is going to try to cut down on calorie intake increase her activity. Will follow-up sometime the springtime to assess her progress. 12/18/2021 the patient is here for a pulmonary follow-up visit. She continues to have significant daytime drowsiness. Her Mcintosh score still elevated 08/15. The patient does not sleep well at night. She has been on the oxygen but does not feel like the oxygen supplementation has been effective for her. She has underlying cardiac history with atrial fibrillation. We did review her sleep study but it looks 6 she was having hard time falling asleep for most of the 1st part of the study. Then she was noted to have significant REM related sleep disorder. The patient will benefit from a repeat study at this time in view of her significant cardiovascular risk and also nocturnal hypoxia. In addition to that the patient has gained weight specially since the pandemic. She was also diagnosed with prediabetes. She knows that if she can lose some weight her breathing was also improved. She continues to have dyspnea on exertion moderate severity. the patient does need some guidance and help with the dietary lifestyle changes. 02/22/2024 the patient is here for a pulmonary follow-up visit. She has had a hard time with her asthma. She has been having worsening wheezing. Moderate severity. She actually went to the ER last time back in November. She was treated and released. The patient did have a chest x-ray which I personally reviewed. No acute respiratory issues noted. The patient does have some wheezing on examination. She does have a picture from for [facility] but she does not use it because she can not tolerate the powder inhalers. The patient has been using her rescue inhaler every 4 hours. Although she has atrial fibrillation and I explained to her that that be an issue. Patient needs to be on maintenance inhaler. She does have wheezing on exam right now. She is willing to try Advair puffer. She can do that twice a day use the albuterol in between. Also should be using singular. Will reassess in 2-3 months. If the patient has any worsening symptoms she will call for an earlier assessment. [facility] Medical History (Updated 10/08/23 @ 14:13 by Valencia Crooks NP) Nonischemic cardiomyopathy PAF (paroxysmal atrial fibrillation) Nocturnal hypoxemia Morbid obesity Asthma-COPD overlap syndrome Diastolic dysfunction Pneumonitis Schizophrenia, paranoid Afib Schizophrenia Atrial fib/flutter, transient Pneumonia due to COVID-19 virus Pacemaker Hypothyroid Schizophrenia HTN (hypertension) Asthma Surgical History History of cardiac pacemaker Hx of kidney removal Hx of removal of ovary Family History Father Heart disease Mother Heart disease Social History Household Members: None Housing: Apartment Do you presently have visiting nurse or other home services: Yes Alcohol intake: never Patient Tobacco Use Status: Former Tobacco user Years Smoked: 10 years +/- Advance Directives Date on File: 10/30/20 service: No Current occupational status: disabled Review of Systems Const Denies chills, Reports daytime sleepiness, Reports difficulty sleeping, Denies fatigue, Denies fever(s), Denies frequent falls, Reports snoring, Reports stops breathing during sleep, Denies weakness, Reports weight gain and Denies weight loss ENT Denies dizziness Card Denies chest pain, Denies leg edema, Denies lightheadedness, Denies palpitations, Denies dyspnea, Reports dyspnea on exertion, Denies orthopnea and Denies other (Loss of consciousness) Resp Reports cough, Denies dyspnea, Reports dyspnea on exertion, Reports snoring and Reports wheezing GI Denies hematochezia and Denies change in bowel habits Musc Denies abnormal gait, Denies muscle weakness, Denies numbness, Denies radiating pain into limb and Denies tingling Neuro Denies abnormal gait, Denies dizziness, Denies frequent falls, Denies numbness, Denies tingling and Denies weakness Endo Denies fatigue and Denies palpitations Aller/Immun Reports wheezing Physical Exam Vital Signs: Last Vital Signs Pulse 60 02/22/24 09:14 Pulse Ox 90 L 02/22/24 09:14 Oxygen Delivery Method Room Air 02/22/24 09:14 BMI result Body Mass Index 54.0 Const General: alert Neck Neck: Yes normal visual inspection, Yes full ROM and Yes no lymphadenopathy Chest Chest palpation & inspection: normal inspection of the chest Resp Effort & Inspection: normal respiratory effort Auscultation: wheezes and diminished lung sounds Cardio Rate: regular rate Rhythm: regular rhythm Heart sounds: S1 normal heart sound present and S2 normal heart sound present GI Palpation (GI): Soft to palpation and nontender Auscultation: normal bowel sounds Skin General skin exam: no rashes or lesions noted Extrem General: Yes no clubbing, cyanosis or edema Assessment & Plan Assessment & Plan (1) Asthma-COPD overlap syndrome: Code(s): J44.9 - Chronic obstructive pulmonary disease, unspecified Category: Medical (2) MARGOTH (obstructive sleep apnea): Code(s): G47.33 - Obstructive sleep apnea (adult) (pediatric) Category: Medical (3) Diastolic dysfunction: Code(s): I51.89 - Other ill-defined heart diseases Category: Medical Plan oxygen 2 L at nighttime while sleeping stop Trelegy (does not tolerate powder) Add Advair BID continue LEONCIO as needed continue Singulair follow-up 2-3 months Medications: New fluticasone propion-salmeterol 230-21 mcg/actuation (Advair HFA) 2 puffs inhalation BID 30 days 12 grams 11RF montelukast (Singulair) 10 mg PO BEDTIME 30 days 30 tabs 11RF J45.909 - Unspecified asthma, uncomplicated Changed From albuterol sulfate 90 mcg/actuation 2 puffs PO Q4H PRN 8.5 grams 10RF for dyspnea To albuterol sulfate 90 mcg/actuation 2 puffs inhalation Q4H PRN 8.5 grams 11RF shortness of breath or wheezing Discontinued fluticasone furoate-vilanterol 200-25 mcg/dose (Breo Ellipta) Discontinued Reason: Doctor's Order 1 inh inhalation DAILY 60 ea 2RF Coding Level of Care Code Est Pt Level 4 (83214) Diagnoses Asthma-COPD overlap syndrome J44.9 MARGOTH (obstructive sleep apnea) G47.33 Diastolic dysfunction I51.89 Time Spent (min) 16
== END 2024-02-22 09:36 | disposition home or self-care (01) ==
PROVIDERS: PCP Internal Medicine; Visit Provider Hospitalist
DX: J44.9 Chronic obstructive pulmonary disease, unspecified (principal); G47.33 Obstructive sleep apnea (adult) (pediatric); I51.89 Other ill-defined heart diseases
CPT/HCPCS: 99214

== ENCOUNTER → 2024-02-22 08:57 | Outpatient (BNVA) | payer MEDICARE, MEDICAID, SELFPAY | PROVIDERS: PCP Internal Medicine; Visit Provider Hospitalist | DX: J44.9 Chronic obstructive pulmonary disease, unspecified (principal); G47.33 Obstructive sleep apnea (adult) (pediatric); I51.89 Other ill-defined heart diseases | CPT/HCPCS: 99212 ==

== ENCOUNTER 2024-03-09 22:00 | Emergency (ER) | payer MEDICARE, MEDICAID, SELFPAY ==
[2024-03-09 22:08] VITALS: BP 170/84; PULSE 86; O2SAT 98
[2024-03-09 22:17] VITALS: BP 106/64; PULSE 101; RESP 22; TEMP 36.6; O2SAT 96; BMI 53.9
--- NOTE | 2024-03-09 22:25 | ECG_ITS ---
Test Reason : AFIB Blood Pressure : / mmHG Vent. Rate : 129 BPM Atrial Rate : 000 BPM P-R Int : 000 ms QRS Dur : 080 ms QT Int : 292 ms P-R-T Axes : 000 -09 027 degrees QTc Int : 427 ms Atrial fibrillation with rapid ventricular response Nonspecific ST abnormality Abnormal ECG When compared with ECG of 17-DEC-2022 15:53, Atrial fibrillation with rapid ventricular response has replaced Electronic atrial pacemaker Vent. rate has increased BY 69 BPM Referred By: Generic ED Physician Electronically Signed By:MIRNA YOUNG MD
--- NOTE | 2024-03-09 22:39 | ED.CHESTPAIN ---
HPI - Chest Pain General Chief Complaint: Chest Pain Stated Complaint: HTN Time Seen by Provider: 03/09/24 22:39 Source: patient Mode of arrival: EMS Limitations: no limitations History of Present Illness ED Provider: brandi TEAGUE narrative: Patient's history of paroxysmal flutter/fibrillation on metoprolol and Xarelto comes here for episode of palpitation started just prior to arrival with shortness a breath patient feel that this time patient's heart rate was beating faster than usual on arrival heart rate was fluctuating between 140-150 Related Data Home Medications ?Medication ?Instructions ?Recorded ?Confirmed levothyroxine 112 mcg tablet 112 mcg PO DAILY@0630 07/30/20 10/25/23 loratadine 10 mg tablet 10 mg PO DAILY 07/30/20 10/25/23 magnesium oxide 400 mg (241.3 mg 400 mg PO DAILY 07/30/20 10/25/23 magnesium) tablet melatonin 5 mg tablet 10 mg PO BEDTIME PRN insomnia 07/30/20 10/25/23 fluticasone propionate 50 1 spray intranasal BID PRN Allergy 10/25/20 10/25/23 mcg/actuation nasal Symptoms spray,suspension paliperidone palmitate 234 mg/1.5 234 mg IM Q3W 04/15/21 10/25/23 mL intramuscular syringe (Invega Sustenna) benztropine 1 mg tablet 1 mg PO BID 06/17/21 10/25/23 acetaminophen 325 mg tablet 650 mg PO Q4H PRN 01/11/22 10/25/23 fever/headache/pain rtjxpjvesmzg-gxdgxbrs-wdusqs tablet 1 tab PO DAILY 01/11/22 10/25/23 nystatin-triamcinolone 100,000 1 appl topical BID 01/11/22 10/25/23 unit/g-0.1 % topical cream vitamins A,C,A-xlyl-nhdzzw 4,296 1 cap PO DAILY 01/11/22 10/25/23 mcg-226 mg-90 mg capsule (PreserVision AREDS) sertraline 25 mg tablet 25 mg PO DAILY 05/11/23 10/25/23 atorvastatin 40 mg tablet 40 mg PO DAILY 09/21/23 10/25/23 aripiprazole 20 mg tablet 20 mg PO BEDTIME PRN 02/22/24 Previous Rx's ?Medication ?Instructions ?Recorded metoprolol tartrate 100 mg tablet 100 mg PO BID 90 days #180 tabs 08/12/23 diltiazem HCl 240 mg 240 mg PO DAILY #90 caps 01/25/24 capsule,extended release 24 hr albuterol sulfate 90 mcg/actuation 2 puff inhalation Q4-6H PRN 01/26/24 aerosol inhaler shortness of breath or wheezing #1 ea rivaroxaban 20 mg tablet (Xarelto) 20 mg PO QPM 90 days #90 tabs 02/02/24 albuterol sulfate 90 mcg/actuation 2 puff inhalation Q4H PRN 02/22/24 aerosol inhaler shortness of breath or wheezing #8.5 grams fluticasone propionate 230 2 puff inhalation BID 30 days #12 02/22/24 mcg-salmeterol 21 mcg/actuation grams HFA inhaler (Advair HFA) montelukast 10 mg tablet 10 mg PO BEDTIME 30 days #30 tabs 02/22/24 (Singulair) Allergies Allergy/AdvReac Type Severity Reaction Status Date / Time No Known Allergies Allergy Verified 03/09/24 22:20 Review of Systems Review of Systems: Yes all other systems are reviewed and are negative [facility] Past Medical History Medical History (Updated 03/10/24 @ 00:52 by Po Mcbride MD) Nonischemic cardiomyopathy PAF (paroxysmal atrial fibrillation) Nocturnal hypoxemia Morbid obesity Asthma-COPD overlap syndrome Diastolic dysfunction Pneumonitis Schizophrenia, paranoid Afib Schizophrenia Atrial fib/flutter, transient Pneumonia due to COVID-19 virus Pacemaker Hypothyroid Schizophrenia HTN (hypertension) Asthma Surgical History History of cardiac pacemaker Hx of kidney removal Hx of removal of ovary Family History Family History Father Heart disease Mother Heart disease Social History Social History Household Members: None Housing: Apartment Do you presently have visiting nurse or other home services: Yes Alcohol intake: never Patient Tobacco Use Status: Former Tobacco user Years Smoked: 10 years +/- Smoked in Last 30 Days: No Use of substances other than those prescribed or required for medical reasons: No Advance Directives: Yes Advance Directives on File: Yes Advance Directives Date on File: 10/30/20 Do you have a plan to hurt others: No Plan service: No Current occupational status: disabled Physical Exam Vital Signs: Vital Signs: Last Vital Signs Temp 97.9 F 03/09/24 22:17 Pulse 135 H 03/09/24 23:48 Resp 22 H 03/09/24 23:48 BP 103/80 03/09/24 23:48 Pulse Ox 96 03/09/24 23:48 O2 Del Method Room Air 03/09/24 23:48 Oxygen Flow Rate 2 03/09/24 22:17 BMI result Body Mass Index 53.9 Appearance: Alert. Oriented X3. No acute distress. Eyes: No pallor or icterus ENT: Pharynx normal. Oral Mucosa moist Neck: Normal inspection. Neck supple. CVS: Irregularly irregular tachycardic Pulses normal. Respiratory: No respiratory distress. Equal air entry bilateral, no wheezing/rales/rhonchi Abdomen: Soft and nontender. Bowel sounds are present, no mass palpable, no CVA tenderness Skin: Skin warm and dry. Normal skin color. Normal skin turgor. Extremities: No lower extremity edema. No calf tenderness Neuro: Oriented X 3. Medications Administered Discontinued Medications Generic Name Dose Route Start Last Admin Trade Name Freq PRN Reason Stop Dose Admin Diltiazem HCl 10 mg 03/09/24 23:17 03/09/24 23:32 Diltiazem Hcl 50 Mg/10 Ml Vial IVPUSH 03/09/24 23:18 10 mg STAT STA Administration Medical Decision Making Medical Decision Making [facility] Narrative: Patient with paroxysmal atrial fibrillation on beta blockers came here with rapid ventricular rate in 150s responded to Cardizem IV , back to pacemaker rhythm at this time will discharge patient home advised to continue her beta blockers Differential Diagnosis Differential Diagnoses: The differential diagnosis associated with the presentation includes Admission/Observation Consideration of admission/observation: Escalation of care including admission/observation considered Lab Data [facility] Lab Attestation statement: I reviewed the patient's lab results. 03/09/24 22:53 03/09/24 22:53 Labs: Lab Results 03/09/24 Range/Units 22:53 WBC 8.4 (4.8-10.8) X10*3/uL RBC 4.13 L (4.20-5.50) X10*6/uL Hgb 12.3 (12.0-16.0) g/dl Hct 36.8 L (37.0-47.0) % MCV 89.1 (80.0-98.0) fL MCH 29.8 (27.0-33.0) pg MCHC 33.4 (31.0-35.0) g/dl RDW 14.6 (11.0-16.0) % Plt Count 242 (160-400) X10*3/uL MPV 8.7 L (9.4-12.3) fL Immature Gran % (Auto) 0.2 (0.0-0.4) % Neut % (Auto) 63.7 (45-73) % Lymph % (Auto) 23.2 (20-40) % Thayer % (Auto) 10.0 (2-11) % Eos % (Auto) 2.5 (0-4) % Baso % (Auto) 0.4 (0-2) % Lymph # (Auto) 1.9 (1.2-4.9) X10*3/uL Thayer # (Auto) 0.8 (0.1-1.2) X10*3/uL Eos # (Auto) 0.2 (0.0-0.4) X10*3/uL Baso # (Auto) 0.0 (0.0-0.2) X10*3/uL Abs Immat Gran (auto) 0.02 (0.00-0.03) X10*3/uL Absolute Neuts (auto) 5.3 (2.0-8.3) x10*3/uL Absolute Nucleated RBC 0.000 (0.0-0.012) X10*3/uL Nucleated RBC % (auto) 0.0 (0.0-0.2) /100WBC PT 23.7 H (11.1-13.3) SEC INR 1.9 H (0.9-1.1) Sodium 143 (135-145) mmol/L Potassium 3.5 (3.3-5.1) mmol/L Chloride 108 (96-108) mmol/L Carbon Dioxide 24 (22-29) mmol/L Anion Gap 15 (12-20) BUN 13 (9-16) mg/dL Creatinine 0.70 (0.5-1.4) mg/dL Estim Creat Clear Calc 105.1 Estimated GFR > 60 Random Glucose 96 (60-115) mg/dL Calcium 9.4 (8.4-10.2) mg/dL Magnesium 2.2 (1.6-2.6) mg/dL Total Bilirubin 0.2 (0.0-1.0) mg/dL AST 23 (5-31) U/L ALT 27 (0-31) U/L Alkaline Phosphatase 107 (39-117) U/L Troponin I High Sens < 2.7 (<3.5-17.0) ng/L B-Natriuretic Peptide 141 H (<100) pg/mL Total Protein 7.4 (6.5-8.0) g/dL Albumin 3.9 (3.5-5.0) g/dL Independent Interpretation I performed an independent interpretation of an: EKG Interpretation: Atrial fibrillation with ventricular rate 129 beats per minute nonspecific ST T wave changes no acute ischemia Discharge Plan Discharge Clinical Impression: Paroxysmal A-fib Patient Disposition: Home, Self-Care Instructions: A-fib (Atrial Fibrillation) (ED) Additional Instructions: Continue blood thinner and metoprolol 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 Report to ER if recurrence of palpitation Prescriptions: No Action metoprolol tartrate 100 mg tablet 100 mg PO BID 90 Days Qty: 180 3RF atorvastatin 40 mg tablet 40 mg PO DAILY diltiazem HCl 240 mg capsule,extended release 24hr 240 mg PO DAILY Qty: 90 4RF albuterol sulfate 90 mcg/actuation HFA aerosol inhaler 2 puff inhalation Q4-6H PRN (Reason: shortness of breath or wheezing) Qty: 1 3RF Xarelto 20 mg tablet 20 mg PO QPM 90 Days Qty: 90 3RF magnesium oxide 400 mg (241.3 mg magnesium) tablet 400 mg PO DAILY loratadine 10 mg tablet 10 mg PO DAILY levothyroxine 112 mcg tablet 112 mcg PO DAILY@0630 melatonin 5 mg tablet 10 mg PO BEDTIME PRN (Reason: insomnia) Invega Sustenna 234 mg/1.5 mL syringe 234 mg IM Q3W Rx Instructions: pt unsure when last received injection, thinks 01/06 or 01/07 fluticasone propionate 50 mcg/actuation [place],Suspension 1 spray INTRANASAL BID PRN (Reason: Allergy Symptoms) acetaminophen 325 mg Tablet 650 mg PO Q4H PRN (Reason: fever/headache/pain) nystatin-triamcinolone 100,000-0.1 unit/g-% cream 1 appl TOPICAL BID titgyoxfignp-qopsjvyk-gosgri Tablet 1 tab PO DAILY PreserVision AREDS [id number],[id number] [id number]-nl-aiws Capsule 1 cap PO DAILY benztropine 1 mg tablet 1 mg PO BID sertraline 25 mg tablet 25 mg PO DAILY aripiprazole 20 mg tablet 20 mg PO BEDTIME PRN fluticasone propion-salmeterol [Advair HFA] 230-21 mcg/actuation HFA aerosol inhaler 2 puff inhalation BID 30 Days Qty: 12 11RF albuterol sulfate 90 mcg/actuation HFA aerosol inhaler 2 puff inhalation Q4H PRN (Reason: shortness of breath or wheezing) Qty: 8.5 11RF montelukast [Singulair] 10 mg tablet 10 mg PO BEDTIME 30 Days Qty: 30 11RF Print Language: [place]
[2024-03-09 22:59] LABS: MANUAL DIFF FLAG NO
[2024-03-09 23:00] LABS: Basophils Percent Auto 0.4 % (0-2); Eosinophils Absolute Auto 0.2 X10*3/uL (0.0-0.4); Eosinophils Percent Auto 2.5 % (0-4); Hematocrit 36.8 % (37.0-47.0); Hemoglobin 12.3 g/dl (12.0-16.0); Imm Gran Abs Auto 0.02 X10*3/uL (0.00-0.03); Imm Gran Pct Auto 0.2 % (0.0-0.4); Lymphocytes Absolute Auto 1.9 X10*3/uL (1.2-4.9); Lymphocytes Percent Auto 23.2 % (20-40); Mean Corpuscular HGB Conc 33.4 g/dl (31.0-35.0); Mean Corpuscular Hemoglobin 29.8 pg (27.0-33.0); Mean Corpuscular Volume 89.1 fL (80.0-98.0); Mean Platelet Volume 8.7 fL (9.4-12.3); Monocytes Absolute Auto 0.8 X10*3/uL (0.1-1.2); Neutrophils Absolute Auto 5.3 x10*3/uL (2.0-8.3); Neutrophils Percent Auto 63.7 % (45-73); Platelet Count 242 X10*3/uL (160-400); Red Blood Count 4.13 X10*6/uL (4.20-5.50); Red Cell Distribution Width 14.6 % (11.0-16.0); White Blood Count 8.4 X10*3/uL (4.8-10.8)
[2024-03-09 23:06] LABS: INTERNATIONAL NORM RATIO 1.9 (0.9-1.1); Prothrombin Time 23.7 SEC (11.1-13.3)
[2024-03-09 23:15] LABS: Alanine Aminotransferase 27 U/L (0-31); Albumin Level 3.9 g/dL (3.5-5.0); Alkaline Phosphatase 107 U/L (39-117); Anion Gap 15 (12-20); Aspartate Amino Transferase 23 U/L (5-31); Bilirubin Total 0.2 mg/dL (0.0-1.0); Blood Urea Nitrogen 13 mg/dL (9-16); Calcium 9.4 mg/dL (8.4-10.2); Carbon Dioxide 24 mmol/L (22-29); Chloride 108 mmol/L (96-108); Creatinine Clr Calc Pharmacy 105.1; Estimated Glomerular Filt Rate > 60; Glucose Random 96 mg/dL (60-115); Magnesium 2.2 mg/dL (1.6-2.6); Potassium 3.5 mmol/L (3.3-5.1); Sodium 143 mmol/L (135-145); Total Protein 7.4 g/dL (6.5-8.0)
[2024-03-09 23:19] LABS: B Type Natriuretic Peptide 141 pg/mL (<100)
[2024-03-09 23:23] LABS: Troponin-I High Sensitivity < 2.7 ng/L (<3.5-17.0)
[2024-03-09 23:32] VITALS: PULSE 145
[2024-03-09] MEDS: dilTIAZem HCL 50 MG/10 ML VIAL 10 MG IVPUSH (23:32)
[2024-03-09 23:48] VITALS: BP 103/80; PULSE 135; RESP 22; O2SAT 96
[2024-03-10 00:59] VITALS: BP 110/75; PULSE 60; RESP 17; TEMP 36.6; O2SAT 97
[2024-03-10 02:30] VITALS: BP 142/68; PULSE 62; RESP 18; O2SAT 96
[2024-03-10 04:12] VITALS: BP 126/68; PULSE 68; RESP 18; TEMP 36.6; O2SAT 96
== END 2024-03-10 04:19 | disposition home or self-care (01) ==
PROVIDERS: Emergency Provider Internal Medicine
DX: I48.0 Paroxysmal atrial fibrillation (principal); R06.02 Shortness of breath; J45.909 Unspecified asthma, uncomplicated; Z95.0 Presence of cardiac pacemaker; Z87.891 Personal history of nicotine dependence; Z79.02 Long term (current) use of antithrombotics/antiplatelets; Z79.01 Long term (current) use of anticoagulants
CPT/HCPCS: 36415; 80053; 83735; 83880; 84484; 85025; 85610; 93005; 96374; 99284; 99285

== ENCOUNTER → 2024-03-09 22:25 | Outpatient (BNV) | payer MEDICARE, MEDICAID, SELFPAY | PROVIDERS: Emergency Provider Internal Medicine; Visit Provider Internal Medicine Cardiovascular Disease | DX: R94.31 Abnormal electrocardiogram [ECG] [EKG] (principal) | CPT/HCPCS: 93010 ==

== ENCOUNTER 2024-05-04 09:25 | Outpatient (AMB) | payer MEDICARE, MEDICAID, SELFPAY ==
[2024-05-04 10:03] VITALS: BP 124/62; PULSE 60; BMI 53.0
--- NOTE | 2024-05-04 10:03 | MHC.OFFVIS ---
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 Hand Required: No Accompanied by: Self / Same As Patient Allergies No Known Allergies Allergy (Verified 03/09/24 22:20) Medication List - Last Reconciled 05/04/24 by Reno Sotomayor MD acetaminophen 650 mg PO Q4H PRN albuterol sulfate 90 mcg/actuation 2 puffs inhalation Q4-6H PRN albuterol sulfate 90 mcg/actuation 2 puffs inhalation Q4H PRN aripiprazole 20 mg PO BEDTIME PRN atorvastatin 40 mg PO DAILY benztropine 1 mg PO BID diltiazem HCl CD 240 mg PO DAILY fluticasone propion-salmeterol 230-21 mcg/actuation (Advair HFA) 2 puffs inhalation BID 30 days fluticasone propionate 50 mcg/actuation 1 spray intranasal BID PRN levothyroxine 112 mcg PO DAILY@0630 loratadine 10 mg PO DAILY lorazepam (Ativan) 1 mg PO BEDTIME PRN magnesium oxide 400 mg PO DAILY melatonin 10 mg PO BEDTIME PRN metoprolol tartrate 100 mg PO BID 90 days montelukast (Singulair) 10 mg PO BEDTIME 30 days ysmbxnhxcctf-opsakexu-dyjaqh 1 tab PO DAILY nystatin-triamcinolone 100,000-0.1 unit/g-% 1 appl topical BID paliperidone palmitate (Invega Sustenna) 234 mg IM Q3W rivaroxaban (Xarelto) 20 mg PO QPM 90 days sertraline 25 mg PO DAILY vitamins A,C,U-yzol-vqwszu 4,296 mcg-226 mg-90 mg (PreserVision AREDS) 1 cap PO DAILY HPI Comments Details: Shahla returns for follow-up regarding atrial fibrillation. She has history of atrial fibrillation episodes as well as tachy/Santi syndromes and has a permanent pacemaker placed. She was on Multaq in the past but because of compliance issues, it was stopped. She remains on diltiazem/metoprolol. One visit to the emergency room for atrial fibrillation episode but otherwise generally feels fine. In the past, had described some throat discomfort but now she states that is resolved and she thinks it is all from allergies. [facility] Medical History (Updated 03/11/24 @ 00:01 by Background Triny) Nonischemic cardiomyopathy PAF (paroxysmal atrial fibrillation) Nocturnal hypoxemia Morbid obesity Asthma-COPD overlap syndrome Diastolic dysfunction Pneumonitis Schizophrenia, paranoid Afib Schizophrenia Atrial fib/flutter, transient Pneumonia due to COVID-19 virus Pacemaker Hypothyroid Schizophrenia HTN (hypertension) Asthma Surgical History History of cardiac pacemaker Hx of kidney removal Hx of removal of ovary Family History Father Heart disease Mother Heart disease Social History Household Members: None Housing: Apartment Do you presently have visiting nurse or other home services: Yes Alcohol intake: never Patient Tobacco Use Status: Former Tobacco user Years Smoked: 10 years +/- Advance Directives Date on File: 10/30/20 service: No Current occupational status: disabled Review of Systems Const Denies chills, Denies fatigue, Denies fever(s), Denies frequent falls, Denies weakness, Denies weight gain and Denies weight loss ENT Denies dizziness Card Denies chest pain, Denies leg edema, Denies lightheadedness, Denies palpitations, Denies dyspnea and Denies dyspnea on exertion Resp Denies cough, Denies dyspnea and Denies dyspnea on exertion GI Denies hematochezia Musc Denies abnormal gait, Denies muscle weakness, Denies numbness, Denies radiating pain into limb and Denies tingling Neuro Denies abnormal gait, Denies dizziness, Denies frequent falls, Denies numbness, Denies tingling and Denies weakness Endo Denies fatigue and Denies palpitations Physical Exam Vital Signs: Last Vital Signs Pulse 60 05/04/24 10:03 BP 124/62 05/04/24 10:03 BMI result Body Mass Index 53.0 Const General: comfortable and no acute distress Orientation/consciousness: patient oriented x3 HEENT Other: Unremarkable Head: Yes normal to inspection Neck Neck: Yes normal visual inspection Chest Chest palpation & inspection: normal inspection of the chest Resp Auscultation: clear to auscultation bilaterally Cardio Palpation: normal PMI Heart sounds: S1 normal heart sound present, S2 normal heart sound present, no gallops, no murmurs and no rubs GI Palpation (GI): Soft to palpation Back/Spine/Pelvis Other: unremarkable Skin General skin exam: no rashes or lesions noted Neuro General: patient oriented x3 Extrem General: Yes normal to inspection Psych Mental Status: mental status grossly normal Office Procedures EKG Details: Pacemaker interrogated today. Dual-chamber device, programmed DDDR mode. Battery status 5 years. Normal lead parameters. Atrial pacing 93%. Ventricular pacing <1%. Atrial fibrillation episodes detected but some of them are not true episodes. Appropriate changes made. Sensitivity has been reprogrammed. Auto sense has been turned off. Overall, normal device function. [id number], Complete Assessment & Plan Assessment & Plan (1) PAF (paroxysmal atrial fibrillation): Code(s): I48.0 - Paroxysmal atrial fibrillation Category: Medical Plan: Rare episodes. Continue metoprolol/diltiazem. Continue anticoagulation. 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 Being followed remotely. (3) Nonischemic cardiomyopathy: Code(s): I42.8 - Other cardiomyopathies Category: Medical Plan: Per [facility] records, there is a history of cardiomyopathy with LVEF of 20-25% in 2017. Myocardial perfusion imaging study from [facility] from 2017 shows normal perfusion. This might be tachycardia induced cardiomyopathy related to atrial fibrillation. Last echo from 2021-LVEF of 65-70% with moderate diastolic dysfunction. Myocardial perfusion imaging study from 2021-reversible distal anterior defect but improving with CT attenuation correction and hence thought to be rather from soft tissue attenuation artifact. Can hold off further workup at this time. (4) MARGOTH (obstructive sleep apnea): Code(s): G47.33 - Obstructive sleep apnea (adult) (pediatric) Category: Medical Plan: Follow-up with pulmonary. (5) Morbid obesity: Code(s): E66.01 - Morbid (severe) obesity due to excess calories Category: Medical Plan: Previously referred to bariatric but she is not willing to follow-up. Coding Level of Care Code Est Pt Level 4 (92962) Diagnoses PAF (paroxysmal atrial fibrillation) I48.0 Tachy-santi syndrome I49.5 Nonischemic cardiomyopathy I42.8 MARGOTH (obstructive sleep apnea) G47.33 Morbid obesity E66.01 CPT Codes EKG - CPT: 35022-[id number], Complete ([id number])
== END 2024-05-04 10:26 | disposition home or self-care (01) ==
PROVIDERS: Visit Provider Internal Medicine
DX: I48.0 Paroxysmal atrial fibrillation (principal); I49.5 Sick sinus syndrome; I42.8 Other cardiomyopathies; G47.33 Obstructive sleep apnea (adult) (pediatric); E66.01 Morbid (severe) obesity due to excess calories
CPT/HCPCS: 93010; 99214

== ENCOUNTER → 2024-05-04 09:25 | Outpatient (BNVA) | payer MEDICARE, MEDICAID, SELFPAY | PROVIDERS: Visit Provider Internal Medicine | DX: Z45.018 Encounter for adjustment and management of other part of cardiac pacemaker (principal); I48.0 Paroxysmal atrial fibrillation; I49.5 Sick sinus syndrome; I42.8 Other cardiomyopathies; G47.33 Obstructive sleep apnea (adult) (pediatric); E66.01 Morbid (severe) obesity due to excess calories; Z68.43 Body mass index [BMI] 50.0-59.9, adult | CPT/HCPCS: 93005; 99212 ==

== ENCOUNTER 2024-05-08 10:46 | Outpatient (AMB) | payer MEDICARE, MEDICAID, SELFPAY ==
[2024-05-08 10:58] VITALS: BP 126/78; PULSE 62; O2SAT 90; BMI 52.9
--- NOTE | 2024-05-08 10:58 | MHC.OFFVIS ---
Vital Signs 05/08/24 10:58 Height 5 ft 3 in Weight 298 lb 11.622 oz BMI 52.9 BP 126/78 Blood Pressure Location Rt brachial Position Sitting Pulse 62 Pulse Source Pulse Oximeter Pulse Oximetry (%) 90 L Oxygen Delivery Method Room Air Intake Visit Reasons: Asthma It Quality Assurance Analyst Required: No Allergies No Known Allergies Allergy (Verified 05/08/24 11:00) HPI Comments Details: The patient is a 68 old woman a known history atrial fibrillation, asthma and diastolic dysfunction was initially admitted to hospital in July 2021 with severe COVID with COVID pneumonia and respiratory failure. She did have CT of the chest demonstrating bilateral ground-glass opacities and areas of consolidation. She was discharged oxygen. She using the regularly. In addition she was readmitted to the in October atrial fibrillation by rapid ventricular response. Patient is wondering if she has asthma or COPD. And does causing breath. Explained to her that her shortness of breath is multifactorial. She denies any denies any sputum. Denies any chest pains pressure. She does have a tremor is related to medications she has been taking for many years. Patient does daytime drowsiness. Her Bradford score is 10/24. The patient needs to undergo a in-lab study. 06/17/2021 the patient is here for a pulmonary follow-up visit. Overall the patient has been feeling little better. She did try the Anoro inhaler but was not effective. She still complaining of shortness of breath time. She also has a history atrial fibrillation so we have to be careful with her beta agonist therapy. In the meantime the patient still has oxygen at. She did undergo an in-lab sleep study demonstrating an AHI of less than 5. However she does have a REM related sleep disorder. During the whole night the patient desaturated down to the high 70s. In addition to that she has been 40 minutes below 88%. Therefore the patient still qualifies for oxygen likely due to her underlying chronic respiratory failure and obstructive airway disease. In addition to that due to COVID infection. The patient already has oxygen through [facility]. Therefore I will send a recent vacation prescription nor for her to continue using the oxygen at 2 L at nighttime. The patient does not qualify for CPAP at this time. I will also provide her with a short-acting beta agonist that she would use only as needed. Needs to be very careful with taking too much albuterol that can potentially worsen her atrial fibrillation control. The patient has been struggling with her weight. She is going to try to cut down on calorie intake increase her activity. Will follow-up sometime the springtime to assess her progress. 12/18/2021 the patient is here for a pulmonary follow-up visit. She continues to have significant daytime drowsiness. Her Bradford score still elevated 12/24. The patient does not sleep well at night. She has been on the oxygen but does not feel like the oxygen supplementation has been effective for her. She has underlying cardiac history with atrial fibrillation. We did review her sleep study but it looks 6 she was having hard time falling asleep for most of the 1st part of the study. Then she was noted to have significant REM related sleep disorder. The patient will benefit from a repeat study at this time in view of her significant cardiovascular risk and also nocturnal hypoxia. In addition to that the patient has gained weight specially since the pandemic. She was also diagnosed with prediabetes. She knows that if she can lose some weight her breathing was also improved. She continues to have dyspnea on exertion moderate severity. the patient does need some guidance and help with the dietary lifestyle changes. 02/22/2024 the patient is here for a pulmonary follow-up visit. She has had a hard time with her asthma. She has been having worsening wheezing. Moderate severity. She actually went to the ER last time back in November. She was treated and released. The patient did have a chest x-ray which I personally reviewed. No acute respiratory issues noted. The patient does have some wheezing on examination. She does have a picture from for [facility] but she does not use it because she can not tolerate the powder inhalers. The patient has been using her rescue inhaler every 4 hours. Although she has atrial fibrillation and I explained to her that that be an issue. Patient needs to be on maintenance inhaler. She does have wheezing on exam right now. She is willing to try Advair puffer. She can do that twice a day use the albuterol in between. Also should be using singular. Will reassess in 2-3 months. If the patient has any worsening symptoms she will call for an earlier assessment. 05/08/2024 the patient is here for a pulmonary follow-up visit. The patient is without any significant complaints. She has been having some shortness breath with activity. Mild in severity. Although she has significant arthritic knees and difficulty ambulating. The patient also has been having issues with weight. She has gained weight which unfortunately could affect her respiratory capacity. She states that she does have anxiety and she does have issues with stress eating. She is going to work on different strategies to deal with her anxiety. In the meantime when she initially arrived to the office her oxygen was on the low side about 89-90%. We did take it for a walking oximetry in her oxygen did improve to 92% with activity. We talked about the importance of deep breathing exercises. Therefore, we did provide her with incentive spirometer so she can work on at home and also talked about different exercise activity such as a peddler for sitting down where she can exercise while sitting. The patient does not qualify for oxygen supplementation with activity. In addition to that she has been using the oxygen at nighttime. The oxygen nocturnally have been affecting beneficial continue for now. As far any inhaler therapy she is doing better with the Advair. We did go over the mechanism how to use it effectively. Based on the fact that she is a little more hypoxic will go ahead and request a chest x-ray at this time. She will continue with the current respiratory therapy and work on deep breathing exercises. Will follow-up in 6-8 months. If she has any issues prior to that she will call for an earlier assessment. [facility] Medical History (Updated 05/08/24 @ 11:12 by Antonino uGaman MD) Chronic restrictive lung disease Nonischemic cardiomyopathy PAF (paroxysmal atrial fibrillation) Nocturnal hypoxemia Morbid obesity Asthma-COPD overlap syndrome Diastolic dysfunction Pneumonitis Schizophrenia, paranoid Afib Schizophrenia Atrial fib/flutter, transient Pneumonia due to COVID-19 virus Pacemaker Hypothyroid Schizophrenia HTN (hypertension) Asthma Surgical History History of cardiac pacemaker Hx of kidney removal Hx of removal of ovary Family History Father Heart disease Mother Heart disease Social History Household Members: None Housing: Apartment Do you presently have visiting nurse or other home services: Yes Alcohol intake: never Patient Tobacco Use Status: Former Tobacco user Years Smoked: 10 years +/- Advance Directives Date on File: 10/30/20 service: No Current occupational status: disabled Review of Systems Const Denies chills, Reports daytime sleepiness, Reports difficulty sleeping, Denies fatigue, Denies fever(s), Denies frequent falls, Reports snoring, Reports stops breathing during sleep, Denies weakness, Reports weight gain and Denies weight loss ENT Denies dizziness Card Denies chest pain, Denies leg edema, Denies lightheadedness, Denies palpitations, Denies dyspnea, Reports dyspnea on exertion, Denies orthopnea and Denies other (Loss of consciousness) Resp Reports cough, Denies dyspnea, Reports dyspnea on exertion, Reports snoring and Reports wheezing GI Denies hematochezia and Denies change in bowel habits Musc Denies abnormal gait, Denies muscle weakness, Denies numbness, Denies radiating pain into limb and Denies tingling Neuro Denies abnormal gait, Denies dizziness, Denies frequent falls, Denies numbness, Denies tingling and Denies weakness Endo Denies fatigue and Denies palpitations Aller/Immun Reports wheezing Physical Exam Vital Signs: Last Vital Signs Pulse 62 05/08/24 10:58 BP 126/78 05/08/24 10:58 Pulse Ox 90 L 05/08/24 10:58 Oxygen Delivery Method Room Air 05/08/24 10:58 BMI result Body Mass Index 52.9 Const General: alert Neck Neck: Yes normal visual inspection, Yes full ROM and Yes no lymphadenopathy Chest Chest palpation & inspection: normal inspection of the chest Resp Effort & Inspection: normal respiratory effort Auscultation: no wheezes and diminished lung sounds Cardio Rate: regular rate Rhythm: regular rhythm Heart sounds: S1 normal heart sound present and S2 normal heart sound present GI Palpation (GI): Soft to palpation and nontender Auscultation: normal bowel sounds Skin General skin exam: no rashes or lesions noted Extrem General: Yes no clubbing, cyanosis or edema Assessment & Plan Assessment & Plan (1) Asthma-COPD overlap syndrome: Code(s): J44.9 - Chronic obstructive pulmonary disease, unspecified Category: Medical (2) MARGOTH (obstructive sleep apnea): Code(s): G47.33 - Obstructive sleep apnea (adult) (pediatric) Category: Medical (3) Diastolic dysfunction: Code(s): I51.89 - Other ill-defined heart diseases Category: Medical (4) Chronic restrictive lung disease: Code(s): J98.4 - Other disorders of lung Category: Medical Plan oxygen 2 L at nighttime while sleepin continue Advair BID continue LEONCIO as needed continue Singulair CXR Provided ISS and provided intructions follow-up 6-8 months Orders: Orders XR chest 2V Today J98.4 - Other disorders of lung Coding Level of Care Code Est Pt Level 4 (29725) Complex EM visit Add On G2211 Diagnoses Asthma-COPD overlap syndrome J44.9 MARGOTH (obstructive sleep apnea) G47.33 Diastolic dysfunction I51.89 Chronic restrictive lung disease J98.4 Time Spent (min) 17
== END 2024-05-08 11:17 | disposition home or self-care (01) ==
PROVIDERS: PCP Internal Medicine; Visit Provider Hospitalist
DX: J44.9 Chronic obstructive pulmonary disease, unspecified (principal); G47.33 Obstructive sleep apnea (adult) (pediatric); I51.89 Other ill-defined heart diseases; J98.4 Other disorders of lung
CPT/HCPCS: 99214; G2211

== ENCOUNTER → 2024-05-08 10:46 | Outpatient (BNVA) | payer MEDICARE, MEDICAID, SELFPAY | PROVIDERS: PCP Internal Medicine; Visit Provider Hospitalist | DX: J44.9 Chronic obstructive pulmonary disease, unspecified (principal); J98.4 Other disorders of lung; G47.33 Obstructive sleep apnea (adult) (pediatric); I51.89 Other ill-defined heart diseases; Z86.16 Personal history of COVID-19 | CPT/HCPCS: 99212 ==

== ENCOUNTER → 2024-05-22 23:59 | Outpatient (BNV) | payer MEDICARE, MEDICAID, SELFPAY ==
--- NOTE | 2024-05-22 14:50 | MHC.OFFVIS ---
Intake Visit Reasons: Remote device check- [facility] Allergies No Known Allergies Allergy (Verified 05/08/24 11:00) [facility] Medical History (Updated 05/08/24 @ 11:12 by Antonino Guaman MD) Chronic restrictive lung disease Nonischemic cardiomyopathy PAF (paroxysmal atrial fibrillation) Nocturnal hypoxemia Morbid obesity Asthma-COPD overlap syndrome Diastolic dysfunction Pneumonitis Schizophrenia, paranoid Afib Schizophrenia Atrial fib/flutter, transient Pneumonia due to COVID-19 virus Pacemaker Hypothyroid Schizophrenia HTN (hypertension) Asthma Surgical History (Reviewed 05/04/24 @ 10:10 by Perla [place] [facility] [address]) History of cardiac pacemaker Hx of kidney removal Hx of removal of ovary Family History Father Heart disease Mother Heart disease Social History Household Members: None Housing: Apartment Do you presently have visiting nurse or other home services: Yes Alcohol intake: never Patient Tobacco Use Status: Former Tobacco user Years Smoked: 10 years +/- Advance Directives Date on File: 10/30/20 service: No Current occupational status: disabled Office Procedures Cardiac Device Check Cardiac Device Check Details: Date of service- 05/22/2024 ; Battery life 4.9 years; normal lead parameters; AP 93%; CASH TELLER 1.2%; AF burden 1.1%, mostly controlled rates. Overall normal device function. [id number] Cardiac Device Interrogation, pacemaker Procedure code (CPT) selection complete Assessment & Plan Assessment & Plan (1) Pacemaker: Code(s): Z95.0 - Presence of cardiac pacemaker Category: Medical (2) Tachy-alicia syndrome: Code(s): I49.5 - Sick sinus syndrome Category: Medical (3) PAF (paroxysmal atrial fibrillation): Code(s): I48.0 - Paroxysmal atrial fibrillation Category: Medical Plan x Coding Level of Care Code Procedure Only Diagnoses Pacemaker Z95.0 Tachy-alicia syndrome I49.5 PAF (paroxysmal atrial fibrillation) I48.0 CPT Codes Cardiac Device Check - Cardiac Device 12: [id number] Cardiac Device Interrogation, pacemaker ([id number])
== END ==
PROVIDERS: PCP Internal Medicine; Visit Provider Internal Medicine
DX: I49.5 Sick sinus syndrome (principal); I48.0 Paroxysmal atrial fibrillation; Z95.0 Presence of cardiac pacemaker
CPT/HCPCS: 93294

== ENCOUNTER → 2024-06-23 14:18 | Outpatient (BNVA) | payer MEDICARE, MEDICAID, SELFPAY | PROVIDERS: PCP Internal Medicine; Visit Provider Nurse Practitioner Family ==

== ENCOUNTER 2024-06-25 23:59 | Outpatient (BNV) | payer MEDICARE, MEDICAID, SELFPAY | END 2024-06-28 23:59 | PROVIDERS: PCP Internal Medicine; Visit Provider Internal Medicine | DX: I48.91 Unspecified atrial fibrillation (principal) | CPT/HCPCS: 99223; 99233 ==

== ENCOUNTER 2024-07-17 13:51 | Outpatient (AMB) | payer MEDICARE, MEDICAID, SELFPAY ==
--- NOTE | 2024-07-17 13:58 | A.OFFVIS_ITS ---
Vital Signs 07/17/24 13:59 Height 5 ft 3 in Weight 286 lb 9.615 oz BMI 50.8 BP 118/60 Blood Pressure Location Lt brachial Position Sitting Pulse 60 Pulse Source Monitor Intake Visit Reasons: [facility] ed f/u Allergies No Known Allergies Allergy (Verified 05/08/24 11:00) Medication List - Last Reconciled 07/17/24 by GERI Pride acetaminophen 650 mg PO Q4H PRN albuterol sulfate 90 mcg/actuation 2 puffs inhalation Q4-6H PRN albuterol sulfate 90 mcg/actuation 2 puffs inhalation Q4H PRN amiodarone 200 mg PO DAILY aripiprazole 30 mg PO DAILY atorvastatin 40 mg PO DAILY benztropine 1 mg PO BID empagliflozin (Jardiance) 10 mg PO DAILY fluticasone propion-salmeterol 230-21 mcg/actuation (Advair HFA) 2 puffs inhalation BID 30 days fluticasone propionate 50 mcg/actuation 1 spray intranasal BID PRN furosemide 20 mg PO DAILY levothyroxine 112 mcg PO DAILY@0630 loratadine 10 mg PO DAILY lorazepam (Ativan) 1 mg PO BEDTIME PRN magnesium oxide 400 mg PO DAILY melatonin 10 mg PO BEDTIME PRN metoprolol tartrate 100 mg PO BID 90 days montelukast (Singulair) 10 mg PO BEDTIME 30 days mswmgcsviemp-xyhpzidw-dyqrvu 1 tab PO DAILY nystatin-triamcinolone 100,000-0.1 unit/g-% 1 appl topical BID Oxygen Home Use As directed paliperidone palmitate (Invega Sustenna) 234 mg IM Q3W rivaroxaban (Xarelto) 20 mg PO QPM 90 days sertraline 50 mg PO DAILY sertraline 25 mg PO DAILY sertraline 100 mg PO DAILY vitamins A,C,Z-bwgo-tkxmxz 4,296 mcg-226 mg-90 mg (PreserVision AREDS) 1 cap PO DAILY HPI HPI [facility] ed f/u: Details: Shahla is a 68-year-old female with past medical history of COPD, hypertension, morbid obesity, sleep apnea, heart failure with preserved EF, tachy-alicia syndrome status post pacemaker placement, paroxysmal atrial fibrillation who was recently admitted to [facility] for shortness of breath and treated for COPD exacerbation/heart failure with reduced EF. She was having episodes of AFib RVR and was started on amiodarone and low-dose Lasix. She now presents for follow-up. Today she reports she was still having issues with rapid heartbeat, palpitations. She was seen in [facility] Emergency room on 07/13/2024 for palpitations. It was determined at that time she had not been taking her metoprolol along with the amiodarone. Since taking the metoprolol she has not noticed heart palpitations in the last few days. She has no chest discomfort at rest or with activity. Her breathing is back to baseline. She sleeps on an incline which is her norm. No PND or lower extremity edema. No lightheadedness, presyncope, syncope, falls. No bleeding issues reported. She tells me she is going to follow with at [facility] for cardiology. She has for an ablation procedure on 08/14/2024. Daughter is present. [facility] Medical History Chronic restrictive lung disease Nonischemic cardiomyopathy PAF (paroxysmal atrial fibrillation) Nocturnal hypoxemia Morbid obesity Asthma-COPD overlap syndrome Diastolic dysfunction Pneumonitis Schizophrenia, paranoid Afib Schizophrenia Atrial fib/flutter, transient Pneumonia due to COVID-19 virus Pacemaker Hypothyroid Schizophrenia HTN (hypertension) Asthma Surgical History History of cardiac pacemaker Hx of kidney removal Hx of removal of ovary Family History Father Heart disease Mother Heart disease Social History Household Members: None Housing: Apartment Do you presently have visiting nurse or other home services: Yes Alcohol intake: never Patient Tobacco Use Status: Former Tobacco user Years Smoked: 10 years +/- Advance Directives Date on File: 10/30/20 service: No Current occupational status: disabled Review of Systems Const All systems reviewed & are unremarkable except as noted in HPI and below Denies weakness ENT Denies dizziness Card Denies chest pain, Denies chest pain with activity, Denies syncope, Reports rapid heart rate (at times, not in last few days), Denies pedal edema, Denies edema, Denies leg edema, Denies lightheadedness, Denies palpitations, Reports dyspnea, Reports dyspnea on exertion and Denies orthopnea Resp Denies cough, Reports dyspnea and Reports dyspnea on exertion GI Denies hematochezia and Denies change in stool character Musc Reports abnormal gait, Denies muscle cramps, Denies muscle weakness, Denies numbness, Denies radiating pain into limb and Denies tingling Neuro Reports abnormal gait, Denies dizziness, Denies syncope, Denies numbness, Denies tingling and Denies weakness Endo Denies palpitations Physical Exam Vital Signs: Last Vital Signs Pulse 60 07/17/24 13:59 BP 118/60 07/17/24 13:59 BMI result Body Mass Index 50.8 Const General: cooperative, healthy appearing, comfortable and no acute distress Orientation/consciousness: patient oriented x3 Neck Neck: Yes normal visual inspection Resp Effort & Inspection: normal respiratory effort Auscultation: clear to auscultation bilaterally, no rales, no rhonchi and no wheezes Cardio Jugular venous distension: no JVD Rate: regular rate Rhythm: regular rhythm Heart sounds: S1 normal heart sound present, S2 normal heart sound present, no murmurs and no rubs Neuro General: patient oriented x3 Extrem General: Yes normal to inspection and Yes no pedal edema Psych Appearance: grossly normal Mental Status: mental status grossly normal Speech and movement: Normal speech and movement present Office Procedures EKG Details: Today, read by me, atrial paced rhythm, ventricular sensed, rate 60, QTC 434 milliseconds [id number], Complete Assessment & Plan Assessment & Plan (1) PAF (paroxysmal atrial fibrillation): Code(s): I48.0 - Paroxysmal atrial fibrillation Category: Medical Plan: History of paroxysmal atrial fibrillation. Her rhythm had been controlled with the use of diltiazem and metoprolol. Recent [facility] admission for shortness of breath and she was treated for Congestive heart failure and paroxysmal AFib with RVR. She was started on amiodarone drip then given p.o. on discharge. Her diltiazem was stopped. She was continued on metoprolol which she initially did not take and then ended up in the ER again on 07/13 with palpitations. She is now taking the metoprolol along with the amiodarone and her rhythm has been more stable. She has been on Xarelto for anticoagulation and denies any bleeding issues. She tells me she is scheduled for an atrial fibrillation ablation on 08/14/2024 and will now be following with Dr. Mcduffie at [facility] for cardiology. EKG done today showing atrial paced, ventricular sensed rhythm, rate 60. No medicine changes made. Follow-up to this office will be p.r.n. as she she will be seeing new provider. (2) Nonischemic cardiomyopathy: Code(s): I42.8 - Other cardiomyopathies Category: Medical Plan: Echocardiogram done 06/26/2024 shows EF 65-70%, no regional wall motion abnormalities and grade 2 diastolic dysfunction. She does not appear fluid overloaded on exam. Continue low-dose Lasix. (3) Pacemaker: Code(s): Z95.0 - Presence of cardiac pacemaker Category: Medical Plan: [employer] dual-chamber pacemaker in place. Functioning normally on last interrogation. She has remote monitoring in use. Informed her to tell her new provider to take over her remote monitoring. Battery life 4.9 years. (4) Tachy-alicia syndrome: Code(s): I49.5 - Sick sinus syndrome Category: Medical Plan: As above (5) Hospital discharge follow-up: Code(s): Z09 - Encounter for follow-up examination after completed treatment for conditions other than malignant neoplasm Category: Medical Plan: As above Plan Time spent on chart review, documentation, interview and assessment Medications: New amiodarone No further refills through our office - changing providers 200 mg PO DAILY 30 tabs 0RF furosemide No further refills through our office - changing providers 20 mg PO DAILY 30 tabs 0RF Coding Level of Care Code Est Pt Level 4 (90927) Complex EM visit Add On G2211 Diagnoses PAF (paroxysmal atrial fibrillation) I48.0 Nonischemic cardiomyopathy I42.8 Pacemaker Z95.0 Tachy-alicia syndrome I49.5 Hospital discharge follow-up Z09 CPT Codes EKG - CPT: 88061-[id number], Complete ([id number]) Time Spent (min) 36
[2024-07-17 13:59] VITALS: BP 118/60; PULSE 60; BMI 50.8
== END 2024-07-17 14:36 | disposition home or self-care (01) ==
PROVIDERS: PCP Internal Medicine; Visit Provider Nurse Practitioner Family
DX: I48.0 Paroxysmal atrial fibrillation (principal); I42.8 Other cardiomyopathies; Z95.0 Presence of cardiac pacemaker; I49.5 Sick sinus syndrome; Z09 Encounter for follow-up examination after completed treatment for conditions other than malignant neoplasm
CPT/HCPCS: 93010; 99214; G2211

== ENCOUNTER → 2024-07-17 20:30 | Outpatient (REF) | payer MEDICARE, MEDICAID, SELFPAY | LOC: HO.SL 20:30 | PROVIDERS: PCP Internal Medicine; Visit Provider Hospitalist | DX: G47.33 Obstructive sleep apnea (adult) (pediatric) (principal); Z09 Encounter for follow-up examination after completed treatment for conditions other than malignant neoplasm; I48.0 Paroxysmal atrial fibrillation; I42.8 Other cardiomyopathies; I49.5 Sick sinus syndrome; Z95.0 Presence of cardiac pacemaker | CPT/HCPCS: 93005; 95810; 99212 ==

== ENCOUNTER → 2024-07-17 22:30 | Outpatient (BNV) | payer MEDICARE, MEDICAID, SELFPAY | PROVIDERS: PCP Internal Medicine; Visit Provider Internal Medicine | DX: G47.33 Obstructive sleep apnea (adult) (pediatric) (principal) | CPT/HCPCS: 95810 ==

== ENCOUNTER → 2024-08-20 23:59 | Outpatient (BNV) | payer MEDICARE, MEDICAID, SELFPAY ==
--- NOTE | 2024-09-03 14:46 | A.OFFVIS_ITS ---
Intake Visit Reasons: Remote device check- [facility] [employer] Allergies No Known Allergies Allergy (Verified 08/28/24 14:56) PFSH Medical History Chronic restrictive lung disease Nonischemic cardiomyopathy PAF (paroxysmal atrial fibrillation) Nocturnal hypoxemia Morbid obesity Asthma-COPD overlap syndrome Diastolic dysfunction Pneumonitis Schizophrenia, paranoid Afib Schizophrenia Atrial fib/flutter, transient Pneumonia due to COVID-19 virus Pacemaker Hypothyroid Schizophrenia HTN (hypertension) Asthma Surgical History History of cardiac pacemaker Hx of kidney removal Hx of removal of ovary Family History Father Heart disease Mother Heart disease Social History Household Members: None Housing: Apartment Do you presently have visiting nurse or other home services: Yes Alcohol intake: never Patient Tobacco Use Status: Former Tobacco user Years Smoked: 10 years +/- Advance Directives Date on File: 10/30/20 service: No Current occupational status: disabled Office Procedures Cardiac Device Check Cardiac Device Check Details: Date of service- 08/20/2024 ; Battery life >4 years; normal lead parameters; AP 79%; [employer] 3%; Aug 20 had about an hour of AF; stated meng ventricular rate episodes in june. Overall normal device function. [id number] Cardiac Device Interrogation, pacemaker Procedure code (CPT) selection complete Assessment & Plan Assessment & Plan (1) Pacemaker: Code(s): Z95.0 - Presence of cardiac pacemaker Category: Medical (2) PAF (paroxysmal atrial fibrillation): Code(s): I48.0 - Paroxysmal atrial fibrillation Category: Medical Plan x Coding Level of Care Code Procedure Only Diagnoses Pacemaker Z95.0 PAF (paroxysmal atrial fibrillation) I48.0 CPT Codes Cardiac Device Check - Cardiac Device 12: [id number] Cardiac Device Interrogation, pacemaker ([id number])
== END ==
PROVIDERS: PCP Internal Medicine; Visit Provider Internal Medicine
DX: I48.0 Paroxysmal atrial fibrillation (principal); Z95.0 Presence of cardiac pacemaker
CPT/HCPCS: 93294

== ENCOUNTER 2024-08-28 14:46 | Outpatient (AMB) | payer MEDICARE, MEDICAID, SELFPAY ==
[2024-08-28 14:49] VITALS: BP 124/78; PULSE 84; O2SAT 92; BMI 52.7
--- NOTE | 2024-08-28 14:49 | MHC.OFFVIS ---
Vital Signs 08/28/24 14:49 Height 5 ft 3 in Weight 297 lb 9.985 oz BMI 52.7 BP 124/78 Blood Pressure Location Rt brachial Position Sitting Pulse 84 Pulse Source Pulse Oximeter Pulse Oximetry (%) 92 Oxygen Delivery Method Nasal Cannula Oxygen Flow Rate 2 Intake Visit Reasons: asthma Allergies No Known Allergies Allergy (Verified 08/28/24 14:56) HPI Comments Details: The patient is a 68 old woman a known history atrial fibrillation, asthma and diastolic dysfunction was initially admitted to hospital in July 2021 with severe COVID with COVID pneumonia and respiratory failure. She did have CT of the chest demonstrating bilateral ground-glass opacities and areas of consolidation. She was discharged oxygen. She using the regularly. In addition she was readmitted to the in October atrial fibrillation by rapid ventricular response. Patient is wondering if she has asthma or COPD. And does causing breath. Explained to her that her shortness of breath is multifactorial. She denies any denies any sputum. Denies any chest pains pressure. She does have a tremor is related to medications she has been taking for many years. Patient does daytime drowsiness. Her [place] score is 10/24. The patient needs to undergo a in-lab study. 06/17/2021 the patient is here for a pulmonary follow-up visit. Overall the patient has been feeling little better. She did try the Anoro inhaler but was not effective. She still complaining of shortness of breath time. She also has a history atrial fibrillation so we have to be careful with her beta agonist therapy. In the meantime the patient still has oxygen at. She did undergo an in-lab sleep study demonstrating an AHI of less than 5. However she does have a REM related sleep disorder. During the whole night the patient desaturated down to the high 70s. In addition to that she has been 40 minutes below 88%. Therefore the patient still qualifies for oxygen likely due to her underlying chronic respiratory failure and obstructive airway disease. In addition to that due to COVID infection. The patient already has oxygen through [facility]. Therefore I will send a recent vacation prescription nor for her to continue using the oxygen at 2 L at nighttime. The patient does not qualify for CPAP at this time. I will also provide her with a short-acting beta agonist that she would use only as needed. Needs to be very careful with taking too much albuterol that can potentially worsen her atrial fibrillation control. The patient has been struggling with her weight. She is going to try to cut down on calorie intake increase her activity. Will follow-up sometime the springtime to assess her progress. 12/18/2021 the patient is here for a pulmonary follow-up visit. She continues to have significant daytime drowsiness. Her [place] score still elevated 12/24. The patient does not sleep well at night. She has been on the oxygen but does not feel like the oxygen supplementation has been effective for her. She has underlying cardiac history with atrial fibrillation. We did review her sleep study but it looks 6 she was having hard time falling asleep for most of the 1st part of the study. Then she was noted to have significant REM related sleep disorder. The patient will benefit from a repeat study at this time in view of her significant cardiovascular risk and also nocturnal hypoxia. In addition to that the patient has gained weight specially since the pandemic. She was also diagnosed with prediabetes. She knows that if she can lose some weight her breathing was also improved. She continues to have dyspnea on exertion moderate severity. the patient does need some guidance and help with the dietary lifestyle changes. 02/22/2024 the patient is here for a pulmonary follow-up visit. She has had a hard time with her asthma. She has been having worsening wheezing. Moderate severity. She actually went to the ER last time back in November. She was treated and released. The patient did have a chest x-ray which I personally reviewed. No acute respiratory issues noted. The patient does have some wheezing on examination. She does have a picture from for [facility] but she does not use it because she can not tolerate the powder inhalers. The patient has been using her rescue inhaler every 4 hours. Although she has atrial fibrillation and I explained to her that that be an issue. Patient needs to be on maintenance inhaler. She does have wheezing on exam right now. She is willing to try Advair puffer. She can do that twice a day use the albuterol in between. Also should be using singular. Will reassess in 2-3 months. If the patient has any worsening symptoms she will call for an earlier assessment. 05/08/2024 the patient is here for a pulmonary follow-up visit. The patient is without any significant complaints. She has been having some shortness breath with activity. Mild in severity. Although she has significant arthritic knees and difficulty ambulating. The patient also has been having issues with weight. She has gained weight which unfortunately could affect her respiratory capacity. She states that she does have anxiety and she does have issues with stress eating. She is going to work on different strategies to deal with her anxiety. In the meantime when she initially arrived to the office her oxygen was on the low side about 89-90%. We did take it for a walking oximetry in her oxygen did improve to 92% with activity. We talked about the importance of deep breathing exercises. Therefore, we did provide her with incentive spirometer so she can work on at home and also talked about different exercise activity such as a peddler for sitting down where she can exercise while sitting. The patient does not qualify for oxygen supplementation with activity. In addition to that she has been using the oxygen at nighttime. The oxygen nocturnally have been affecting beneficial continue for now. As far any inhaler therapy she is doing better with the Advair. We did go over the mechanism how to use it effectively. Based on the fact that she is a little more hypoxic will go ahead and request a chest x-ray at this time. She will continue with the current respiratory therapy and work on deep breathing exercises. Will follow-up in 6-8 months. If she has any issues prior to that she will call for an earlier assessment. 08/28/2024 the patient is here for a pulmonary follow-up visit. She has been complaining of worsening dyspnea on exertion. Although when she came in her oxygen L flow was the wrong setting at 0.5 liters/minute whenever supposed to be at 2. When she went up to 2 she did feel little better. She still complains of dyspnea on exertion though. Mild to moderate severity. She has been noticing increasing lower extremity edema. She has had some dietary indiscretions because of the holidays. She is aware that she has gained some weight over the holidays and has been noticing increasing swelling. Therefore, will go ahead and develop on her Lasix for the next 5 days to help her with her fluid overload to avoid worsening heart failure. After she gets the additional Lasix she can come in for some blood work next week. She will continue to use the oxygen as prescribed. Continues with respiratory therapy. [facility] Medical History Chronic restrictive lung disease Nonischemic cardiomyopathy PAF (paroxysmal atrial fibrillation) Nocturnal hypoxemia Morbid obesity Asthma-COPD overlap syndrome Diastolic dysfunction Pneumonitis Schizophrenia, paranoid Afib Schizophrenia Atrial fib/flutter, transient Pneumonia due to COVID-19 virus Pacemaker Hypothyroid Schizophrenia HTN (hypertension) Asthma Surgical History History of cardiac pacemaker Hx of kidney removal Hx of removal of ovary Family History Father Heart disease Mother Heart disease Social History Household Members: None Housing: Apartment Do you presently have visiting nurse or other home services: Yes Alcohol intake: never Patient Tobacco Use Status: Former Tobacco user Years Smoked: 10 years +/- Advance Directives Date on File: 10/30/20 service: No Current occupational status: disabled Review of Systems Const Denies chills, Reports daytime sleepiness, Reports difficulty sleeping, Denies fatigue, Denies fever(s), Denies frequent falls, Reports snoring, Reports stops breathing during sleep, Denies weakness, Reports weight gain and Denies weight loss ENT Denies dizziness Card Denies chest pain, Denies leg edema, Denies lightheadedness, Denies palpitations, Denies dyspnea, Reports dyspnea on exertion, Denies orthopnea and Denies other (Loss of consciousness) Resp Reports cough, Denies dyspnea, Reports dyspnea on exertion, Reports snoring and Reports wheezing GI Denies hematochezia and Denies change in bowel habits Musc Denies abnormal gait, Denies muscle weakness, Denies numbness, Denies radiating pain into limb and Denies tingling Neuro Denies abnormal gait, Denies dizziness, Denies frequent falls, Denies numbness, Denies tingling and Denies weakness Endo Denies fatigue and Denies palpitations Aller/Immun Reports wheezing Physical Exam Vital Signs: Last Vital Signs Pulse 84 08/28/24 14:49 BP 124/78 08/28/24 14:49 Pulse Ox 92 08/28/24 14:49 Oxygen Delivery Method Nasal Cannula 08/28/24 14:49 Oxygen Flow Rate 2 01/06/25 14:49 BMI result Body Mass Index 52.7 Const General: alert Neck Neck: Yes normal visual inspection, Yes full ROM and Yes no lymphadenopathy Chest Chest palpation & inspection: normal inspection of the chest Resp Effort & Inspection: normal respiratory effort Auscultation: no wheezes and diminished lung sounds Cardio Rate: regular rate Rhythm: regular rhythm Heart sounds: S1 normal heart sound present and S2 normal heart sound present GI Palpation (GI): Soft to palpation and nontender Auscultation: normal bowel sounds Skin General skin exam: no rashes or lesions noted Extrem General: No clubbing, No cyanosis and Yes edema Assessment & Plan Assessment & Plan (1) Asthma-COPD overlap syndrome: Code(s): J44.9 - Chronic obstructive pulmonary disease, unspecified Category: Medical (2) MARGOTH (obstructive sleep apnea): Code(s): G47.33 - Obstructive sleep apnea (adult) (pediatric) Category: Medical (3) Diastolic dysfunction: Code(s): I51.89 - Other ill-defined heart diseases Category: Medical (4) Chronic restrictive lung disease: Code(s): J98.4 - Other disorders of lung Category: Medical (5) Nonischemic cardiomyopathy: Code(s): I42.8 - Other cardiomyopathies Category: Medical Plan oxygen 2 L at nighttime while sleepin continue Advair BID continue LEONCIO as needed continue Singulair additional lasic bloodwork follow-up 3-4 months Orders: Orders Complete Blood Count Auto Diff Today I42.8 - Other cardiomyopathies, I51.89 - Other ill-defined heart diseases, J44.9 - Chronic obstructive pulmonary disease, unspecified Basic Metabolic Panel Today I42.8 - Other cardiomyopathies, I51.89 - Other ill-defined heart diseases, J44.9 - Chronic obstructive pulmonary disease, unspecified Venous Blood Gas Today I42.8 - Other cardiomyopathies, I51.89 - Other ill-defined heart diseases, J44.9 - Chronic obstructive pulmonary disease, unspecified B Type Natriuretic Peptide Today I42.8 - Other cardiomyopathies, I51.89 - Other ill-defined heart diseases, J44.9 - Chronic obstructive pulmonary disease, unspecified Medications: Changed From furosemide No further refills through our office - changing providers 20 mg PO DAILY 30 tabs 0RF To furosemide No further refills through our office - changing providers 20 mg PO DAILY PRN 14 tabs 1RF edema Refilled fluticasone propion-salmeterol 230-21 mcg/actuation (Advair HFA) 2 puffs inhalation BID 12 grams 11RF 30 days Coding Level of Care Code Est Pt Level 4 (45167) Complex EM visit Add On G2211 Diagnoses Asthma-COPD overlap syndrome J44.9 MARGOTH (obstructive sleep apnea) G47.33 Diastolic dysfunction I51.89 Chronic restrictive lung disease J98.4 Nonischemic cardiomyopathy I42.8 Time Spent (min) 17
== END 2024-08-28 15:17 | disposition home or self-care (01) ==
PROVIDERS: PCP Internal Medicine; Visit Provider Hospitalist
DX: J44.9 Chronic obstructive pulmonary disease, unspecified (principal); G47.33 Obstructive sleep apnea (adult) (pediatric); I51.89 Other ill-defined heart diseases; J98.4 Other disorders of lung; I42.8 Other cardiomyopathies
CPT/HCPCS: 99214; G2211

== ENCOUNTER → 2024-08-28 14:46 | Outpatient (BNVA) | payer MEDICARE, MEDICAID, SELFPAY | PROVIDERS: PCP Internal Medicine; Visit Provider Hospitalist | DX: J44.9 Chronic obstructive pulmonary disease, unspecified (principal); J98.4 Other disorders of lung; G47.33 Obstructive sleep apnea (adult) (pediatric); I51.89 Other ill-defined heart diseases; I42.8 Other cardiomyopathies | CPT/HCPCS: 99212 ==

== ENCOUNTER 2024-09-22 13:00 | Inpatient (IN) | payer MEDICARE, MEDICAID, SELFPAY ==
[2024-09-22] VITALS (15 sets, daily range): BP systolic 91–141; BP diastolic 42–84; PULSE 60–173; RESP 24–30; TEMP 36.6–37.3; O2SAT 94–98; BMI 51.4
--- NOTE | 2024-09-22 | ECG_ITS ---
Test Reason : HR CHANGE Blood Pressure : */* mmHG Vent. Rate : 65 BPM Atrial Rate : 65 BPM P-R Int : 142 ms QRS Dur : 84 ms QT Int : 398 ms P-R-T Axes : 15 -1 -2 degrees QTcB Int : 413 ms Sinus rhythm with sinus arrhythmia with frequent ventricular-paced complexes Abnormal ECG When compared with ECG of 22-Sep-2024 16:21, Electronic ventricular pacemaker has replaced Atrial fibrillation Vent. rate has decreased by 105 bpm Referred By: Eve Espinoza Electronically Signed By: LISSETTE EDMONDS
--- NOTE | ~2024-09-22 | XR_ITS ---
EXAMINATION: XR CHEST 2 VIEWS HISTORY: Short of breath COMPARISON: Comparison is made with the prior examination dated 12/17/2022. FINDINGS: AP and lateral views of the chest are submitted. The lateral view is limited by patient motion. A left subclavian dual-chamber pacemaker is unchanged in position. There is mild prominence of the pulmonary vasculature, consistent with congestion. There is no pneumothorax or definite pleural effusion. Heart is enlarged. The bones are intact. XR/XR chest 2V IMPRESSION: Cardiomegaly and mild pulmonary vascular congestion. Electronically signed by: Kem Epperson MD 09/22/2024 02:42 PM [facility]
--- NOTE | ~2024-09-22 | US_ITS ---
CLINICAL HISTORY: b l le swelling >rle Venous duplex ultrasound bilateral lower extremity Comparison: None Findings: The visualized deep veins are fully compressible with normal Doppler color flow and spectral tracings. No popliteal cyst. IMPRESSION: 1. Negative for bilateral lower extremity deep vein thrombosis. This document has been electronically signed by: Taiwo Olmstead MD on 09/22/2024 18:15:49
--- NOTE | 2024-09-22 13:17 | ECG_ITS ---
Test Reason : sob Blood Pressure : */* mmHG Vent. Rate : 71 BPM Atrial Rate : 71 BPM P-R Int : 140 ms QRS Dur : 82 ms QT Int : 420 ms P-R-T Axes : 18 -21 -20 degrees QTcB Int : 456 ms Normal sinus rhythm Possible Anterior infarct , age undetermined Abnormal ECG When compared with ECG of 09-Mar-2024 22:29, Sinus rhythm has replaced Atrial fibrillation Vent. rate has decreased by 58 bpm Non-specific change in ST segment in Anterior leads Referred By: Robert Forbes Electronically Signed By: LISSETTE EDMONDS
[2024-09-22] MEDS: Albuterol Sulfate 5 MG, Albuterol/Iprat 2.5/0.5MG 3 ML 3 ML INHALE (13:29)
[2024-09-22 14:21] LABS: MANUAL DIFF FLAG NO
[2024-09-22 14:23] LABS: Basophils Percent Auto 0.3 % (0-2); Eosinophils Absolute Auto 0.1 X10*3/uL (0.0-0.4); Eosinophils Percent Auto 1.2 % (0-4); Hematocrit 36.9 % (37.0-47.0); Hemoglobin 11.9 g/dl (12.0-16.0); Imm Gran Abs Auto 0.03 X10*3/uL (0.00-0.03); Imm Gran Pct Auto 0.4 % (0.0-0.4); Lymphocytes Absolute Auto 1.6 X10*3/uL (1.2-4.9); Lymphocytes Percent Auto 23.4 % (20-40); Mean Corpuscular HGB Conc 32.2 g/dl (31.0-35.0); Mean Corpuscular Hemoglobin 30.2 pg (27.0-33.0); Mean Corpuscular Volume 93.7 fL (80.0-98.0); Mean Platelet Volume 9.4 fL (9.4-12.3); Monocytes Absolute Auto 0.5 X10*3/uL (0.1-1.2); Monocytes Percent Auto 7.1 % (2-11); Neutrophils Absolute Auto 4.7 x10*3/uL (2.0-8.3); Neutrophils Percent Auto 67.6 % (45-73); Platelet Count 174 X10*3/uL (160-400); Red Blood Count 3.94 X10*6/uL (4.20-5.50); White Blood Count 6.9 X10*3/uL (4.8-10.8)
[2024-09-22 14:26] LABS: INTERNATIONAL NORM RATIO 1.3 (0.9-1.1); Prothrombin Time 14.8 SEC (10.9-12.4)
[2024-09-22 14:34] LABS: IDNOW Serial# 55D5AD1C; Influenza A Positive (Negative); Influenza B2 Negative (Negative)
[2024-09-22 14:35] LABS: COVID-19 Test Negative (Negative); IDNOW Serial# 58CA691E
[2024-09-22 14:36] LABS: Troponin-I High Sensitivity 3.9 ng/L (<3.5-17.0)
[2024-09-22 14:38] LABS: B Type Natriuretic Peptide 286 pg/mL (<100)
[2024-09-22 14:45] LABS: Alanine Aminotransferase 22 U/L (0-31); Albumin Level 3.5 g/dL (3.5-5.0); Alkaline Phosphatase 80 U/L (39-117); Anion Gap 15 (12-20); Aspartate Amino Transferase 24 U/L (5-31); Bilirubin Total 0.4 mg/dL (0.0-1.0); Blood Urea Nitrogen 17 mg/dL (9-16); Calcium 9.4 mg/dL (8.4-10.2); Carbon Dioxide 25 mmol/L (22-29); Chloride 108 mmol/L (96-108); Estimated Glomerular Filt Rate > 60; Glucose Random 130 mg/dL (60-115); Potassium 3.1 mmol/L (3.3-5.1); Sodium 145 mmol/L (135-145); Total Protein 7.1 g/dL (6.5-8.0)
--- NOTE | 2024-09-22 15:28 | ED_ITS ---
HPI - SOB/Dyspnea General Chief Complaint: Dyspnea Stated Complaint: Diff breathing Time Seen by Provider: 09/22/24 15:26 Source: patient, RN notes reviewed and old records reviewed Mode of arrival: ambulatory History of Present Illness ED Provider: Eve Espinoza PA-C HPI Narrative: 69-year-old female with a past medical history proximal AFib, nonischemic cardiomyopathy, asthma/COPD overlap syndrome on 2L home O2, schizophrenia, hypothyroid, HTN, asthma, presenting to the ED complaining of worsening SOB x yesterday with productive cough, chest discomfort and fever. Also reports bilateral LE edema > right. Denies recent travel, sick contacts, abdominal pain, nausea/vomiting. Patient denies taking any of her home medications today Related Data Home Medications ?Medication ?Instructions ?Recorded ?Confirmed levothyroxine 112 mcg tablet 112 mcg PO DAILY@0630 07/30/20 07/17/24 loratadine 10 mg tablet 10 mg PO DAILY 07/30/20 07/17/24 magnesium oxide 400 mg (241.3 mg 400 mg PO DAILY 07/30/20 07/17/24 magnesium) tablet melatonin 5 mg tablet 10 mg PO BEDTIME PRN insomnia 07/30/20 07/17/24 fluticasone propionate 50 1 spray intranasal BID PRN Allergy 10/25/20 07/17/24 mcg/actuation nasal Symptoms spray,suspension paliperidone palmitate 234 mg/1.5 234 mg IM Q3W 04/15/21 07/17/24 mL intramuscular syringe (Invega Sustenna) benztropine 1 mg tablet 1 mg PO BID 06/17/21 07/17/24 acetaminophen 325 mg tablet 650 mg PO Q4H PRN 01/11/22 07/17/24 fever/headache/pain qhmavssvxrst-qtljgbul-yvptiq tablet 1 tab PO DAILY 01/11/22 07/17/24 nystatin-triamcinolone 100,000 1 appl topical BID 01/11/22 07/17/24 unit/g-0.1 % topical cream vitamins A,C,X-qbpd-nhgmlf 4,296 1 cap PO DAILY 01/11/22 07/17/24 mcg-226 mg-90 mg capsule (PreserVision AREDS) sertraline 25 mg tablet 25 mg PO DAILY 05/11/23 07/17/24 atorvastatin 40 mg tablet 40 mg PO DAILY 09/21/23 07/17/24 Oxygen Home Use 05/08/24 07/17/24 aripiprazole 30 mg tablet 30 mg PO DAILY 05/08/24 07/17/24 sertraline 100 mg tablet 100 mg PO DAILY 05/08/24 07/17/24 sertraline 50 mg tablet 50 mg PO DAILY 05/08/24 07/17/24 empagliflozin 10 mg tablet 10 mg PO DAILY 07/17/24 07/17/24 (Jardiance) Previous Rx's ?Medication ?Instructions ?Recorded albuterol sulfate 90 mcg/actuation 2 puff inhalation Q4-6H PRN 01/26/24 aerosol inhaler shortness of breath or wheezing #1 ea rivaroxaban 20 mg tablet (Xarelto) 20 mg PO QPM 90 days #90 tabs 02/02/24 albuterol sulfate 90 mcg/actuation 2 puff inhalation Q4H PRN 02/22/24 aerosol inhaler shortness of breath or wheezing #8.5 grams montelukast 10 mg tablet 10 mg PO BEDTIME 30 days #30 tabs 02/22/24 (Singulair) lorazepam 1 mg tablet (Ativan) 1 mg PO BEDTIME PRN anxiety/sleep 03/10/24 #10 tabs metoprolol tartrate 100 mg tablet 100 mg PO BID 90 days #180 tabs 08/02/24 amiodarone 200 mg tablet 200 mg PO DAILY #30 tabs 08/25/24 furosemide 20 mg tablet 20 mg PO DAILY PRN edema #14 tabs 08/28/24 Advair HFA 230 mcg-21 2 puff inhalation BID 30 days #12 09/05/24 mcg/actuation aerosol inhaler grams (fluticasone propion-salmeterol) Allergies Allergy/AdvReac Type Severity Reaction Status Date / Time Seasonal Allergies Allergy Unknown Verified 09/22/24 13:14 Review of Systems 2 Review of Systems: Yes all other systems are reviewed and are negative Constitutional: Constitutional: Reports as per [facility] Past Medical History Attestation statement: The following information was validated with the patient. Source: old records reviewed Medical History Chronic restrictive lung disease Nonischemic cardiomyopathy PAF (paroxysmal atrial fibrillation) Nocturnal hypoxemia Morbid obesity Asthma-COPD overlap syndrome Diastolic dysfunction Pneumonitis Schizophrenia, paranoid Afib Schizophrenia Atrial fib/flutter, transient Pneumonia due to COVID-19 virus Pacemaker Hypothyroid Schizophrenia HTN (hypertension) Asthma Surgical History History of cardiac pacemaker Hx of kidney removal Hx of removal of ovary Family History Family History Father Heart disease Mother Heart disease Social History Social History Household Members: None Housing: Apartment Do you presently have visiting nurse or other home services: Yes Alcohol intake: never Patient Tobacco Use Status: Former Tobacco user Years Smoked: 10 years +/- Advance Directives: Yes Advance Directives on File: Yes Advance Directives Date on File: 10/30/20 Do you have a plan to hurt others: No Plan service: No Current occupational status: disabled Physical Exam 2 Vital Signs: Vital Signs: Last Vital Signs Temp 99.2 F 09/22/24 13:08 Pulse 149 H 09/22/24 17:35 Resp 28 H 09/22/24 17:07 BP 122/82 09/22/24 17:35 Pulse Ox 94 09/22/24 17:07 O2 Del Method Nasal Cannula 09/22/24 17:07 O2 Flow Rate 2 09/22/24 17:07 Oxygen Flow Rate 2 09/22/24 13:08 BMI result Body Mass Index 51.4 Const: General: cooperative, healthy appearing and no acute distress O rientation/consciousness: patient oriented x3 Limitations: no limitations HEENT: Head: Yes normal to inspection and Yes atraumatic Ears: hearing grossly normal bilaterally General nose exam: Normal external nose present Face and sinus: Yes normal facial exam Eyes: General: appearance normal, both eyes and all related structures EOM: EOMs intact bilaterally Neck: Neck: Yes normal visual inspection and Yes no meningeal signs Resp: Effort & Inspection: normal respiratory effort, no respiratory distress and tachypneic Auscultation: wheezes expiratory wheezes and throughout Cardio: Rate: regular rate Heart sounds: S1 normal heart sound present and S2 normal heart sound present GI: Inspection: Yes normal to inspection Palpation (GI): Soft to palpation, nontender, no guarding and not rigid : General: Yes no CVA tenderness Back/Spine/Pelvis: Back: no CVA tenderness Skin: Rashes: no rashes Wounds: no wounds Neuro: General: patient oriented x3, tone normal and no meningeal signs C ranial nerves: Yes CN's II-XII intact bilaterally Gait exam (Neuro): Normal gait present Extrem: Other: + bilateral LE pitting edema > right Course Course Course Narrative: -1530--no leukocytosis. H&H at patient's baseline. Potassium 3.1 > p.o. repletion ordered. -troponin negative. BNP 286 -influenza a positive XR chest 2V IMPRESSION: Cardiomegaly and mild pulmonary vascular congestion. >1626--patient noted to be in AFib with RVR at a rate of 170 > did not take any of her home medications today which include amiodarone, diltiazem and metoprolol. Will give IV Dilt and re-evaluate > BP soft, patient's heart rate still in the 170s additional 10 mg of IV diltiazem given -blood pressure better with thigh cuff, 140/50 > case discussed with ED attending Dr. Espinosa > we will give additional 25 mg IV Cardizem and p.o. home dose of Cardizem and metoprolol. -1800--heart rate slightly improving however sustaining greater than 120. Will initiate diltiazem drip and admit for further management Medications Administered Discontinued Medications Generic Name Dose Route Start Last Admin Trade Name Freq PRN Reason Stop Dose Admin Albuterol/Ipratropium 3 ml 09/22/24 13:15 09/22/24 13:30 Albuterol/Iprat 2.5/0.5mg 3 Ml Ampul.Neb INHALE 09/22/24 13:16 Not Given ONCE ONE Albuterol Sulfate 5 mg/ 0 mg 09/22/24 13:26 09/22/24 13:29 Albuterol/Ipratropium 3 ml INHALE 09/22/24 13:27 1 each ONCE ONE Administration Albuterol Sulfate 2.5 mg/ 0 mg 09/22/24 15:57 09/22/24 16:10 Albuterol/Ipratropium 3 ml INHALE 09/22/24 15:58 1 dose ONCE ONE Administration Diltiazem HCl 20 mg 09/22/24 16:24 09/22/24 16:33 Diltiazem Hcl 50 Mg/10 Ml Vial IVPUSH 09/22/24 16:25 20 mg STAT STA Administration Diltiazem HCl 10 mg 09/22/24 17:05 09/22/24 17:05 Diltiazem Hcl 50 Mg/10 Ml Vial IVPUSH 09/22/24 17:06 10 mg STAT STA Administration Diltiazem HCl 25 mg 09/22/24 17:18 09/22/24 17:35 Diltiazem Hcl 50 Mg/10 Ml Vial IVPUSH 09/22/24 17:19 25 mg STAT STA Administration Diltiazem HCl 240 mg 09/22/24 17:18 09/22/24 17:57 Diltiazem Hcl Cd 240 Mg Cap.Er.Deg PO 09/22/24 17:19 240 mg ONCE ONE Administration Protocol Furosemide 20 mg 09/22/24 16:22 09/22/24 16:56 Furosemide 20 Mg/2 Ml Vial IVPUSH 09/22/24 16:23 Not Given ONCE ONE Protocol Methylprednisolone Sodium Succinate 60 mg 09/22/24 15:41 09/22/24 16:32 Methylprednisolone Sod Succ 125 Mg/2 Ml Vial IVPUSH 09/22/24 15:42 60 mg ONCE ONE Administration Metoprolol Tartrate 100 mg 09/22/24 17:18 09/22/24 17:35 Metoprolol Tartrate 100 Mg Tablet PO 09/22/24 17:19 100 mg ONCE ONE Administration Protocol Potassium Chloride 60 meq 09/22/24 15:31 09/22/24 16:33 Potassium Chloride Packet 20 Meq Packet PO 09/22/24 15:32 60 meq ONCE ONE Administration Rivaroxaban 20 mg 09/22/24 16:16 09/22/24 16:33 Rivaroxaban 20 Mg Tablet PO 09/22/24 16:17 20 mg ONCE ONE Administration Medical Decision Making Medical Decision Making MDM Narrative: 69-year-old female with a past medical history proximal AFib, nonischemic cardiomyopathy, asthma/COPD overlap syndrome on 2L home O2, schizophrenia, hypothyroid, HTN, asthma, presenting to the ED complaining of worsening SOB x yesterday with productive cough, chest discomfort and fever. Also reports bilateral LE edema > right. On exam tachypneic, low-grade temp 99.2 degrees, diminished lung sounds throughout with diffuse expiratory wheeze. Satting 96 on baseline 2L NC. Bilateral LE pitting edema noted greater on the right. Concern for viral illness vs pneumonia vs asthma/COPD exacerbation vs DVT. Lower suspicion for PE at this time. Lower suspicion for severe sepsis Plan: EKG, labs, CXR, viral testing, ED bronch protocol, IV Solu-Medrol, venous duplex ultrasound, anticipated admission Please refer to course for remaining clinical decision making, interpretation of labs/imaging results, and discussions with consultants and/or family members. Differential Diagnosis Differential Diagnoses: The differential diagnosis associated with the presentation includes As above Admission/Observation Consideration of admission/observation: Escalation of care including admission/observation considered Consult Healthcare Provider Management of the patient was discussed with: Hospitalist Lab Data MDM Lab Attestation statement: I reviewed the patient's lab results. 09/22/24 14:08 09/22/24 14:08 Labs: Lab Results 09/22/24 Range/Units 14:08 WBC 6.9 (4.8-10.8) X10*3/uL RBC 3.94 L (4.20-5.50) X10*6/uL Hgb 11.9 L (12.0-16.0) g/dl Hct 36.9 L (37.0-47.0) % MCV 93.7 (80.0-98.0) fL MCH 30.2 (27.0-33.0) pg MCHC 32.2 (31.0-35.0) g/dl RDW 15.0 (11.0-16.0) % Plt Count 174 D (160-400) X10*3/uL MPV 9.4 (9.4-12.3) fL Immature Gran % (Auto) 0.4 (0.0-0.4) % Neut % (Auto) 67.6 (45-73) % Lymph % (Auto) 23.4 (20-40) % [place] % (Auto) 7.1 (2-11) % Eos % (Auto) 1.2 (0-4) % Baso % (Auto) 0.3 (0-2) % Lymph # (Auto) 1.6 (1.2-4.9) X10*3/uL [place] # (Auto) 0.5 (0.1-1.2) X10*3/uL Eos # (Auto) 0.1 (0.0-0.4) X10*3/uL Baso # (Auto) 0.0 (0.0-0.2) X10*3/uL Abs Immat Gran (auto) 0.03 (0.00-0.03) X10*3/uL Absolute Neuts (auto) 4.7 (2.0-8.3) x10*3/uL Absolute Nucleated RBC 0.000 (0.0-0.012) X10*3/uL Nucleated RBC % (auto) 0.0 (0.0-0.2) /100WBC Hold Purple Top SEE NOTE PT 14.8 H (10.9-12.4) SEC INR 1.3 H (0.9-1.1) Sodium 145 (135-145) mmol/L Potassium 3.1 L (3.3-5.1) mmol/L Chloride 108 (96-108) mmol/L Carbon Dioxide 25 (22-29) mmol/L Anion Gap 15 (12-20) BUN 17 H (9-16) mg/dL Creatinine 0.81 (0.5-1.4) mg/dL Estim Creat Clear Calc 87.0 Estimated GFR > 60 Random Glucose 130 H (60-115) mg/dL Calcium 9.4 (8.4-10.2) mg/dL Total Bilirubin 0.4 (0.0-1.0) mg/dL AST 24 (5-31) U/L ALT 22 (0-31) U/L Alkaline Phosphatase 80 (39-117) U/L Troponin I High Sens 3.9 (<3.5-17.0) ng/L B-Natriuretic Peptide 286 H (<100) pg/mL Total Protein 7.1 (6.5-8.0) g/dL Albumin 3.5 (3.5-5.0) g/dL COVID-19 (VIC) Negative (Negative) COVID-19 Clin Com See Note Influenza Type A (LIBERTY) Positive A (Negative) Influenza Type B (LIBETRY) Negative (Negative) Influenza A & B Note See Note Independent Interpretation I performed an independent interpretation of an: EKG, Plain X-Ray and Ultrasound Radiology Impression Discussion of test interpretation with radiology: I have reviewed the radiologist's reading. External Record Review External record reviewed: Inpatient record, Office record, Outpatient record, Prior outpatient labs, Prior outpatient radiology, Primary care record and Outside ED record Tests considered The following testing was considered but not selected: As above Prescription Management I considered prescription management with: Other Chronic Conditions Patient?s care impacted by: Other (Asthma/COPD overlap syndrome, proximal AFib,) Social Determinants Patient?s care significantly limited by Social Determinants of Health including: Other Social Determinant of Health Critical Care Time Critical Care Time Critical Care Time: Yes Total Critical Care Time: 50 Attestation: I have personally provided critical care time exclusive of time spent on separately billable procedures. Time includes review of lab data, radiology results, discussion with consultants, and monitoring for potential decompensation. Intervention performed as documented. Discharge Plan Discharge Clinical Impression: Influenza A, Pulmonary vascular congestion Patient Disposition: Admitted As Inpatient Print Language: Indonesian
[2024-09-22] MEDS: Albuterol Sulfate 2.5 MG, Albuterol/Iprat 2.5/0.5MG 3 ML 3 ML INHALE (16:10)
--- NOTE | 2024-09-22 16:16 | ECG_ITS ---
Test Reason : TACHYCARDIA Blood Pressure : */* mmHG Vent. Rate : 170 BPM Atrial Rate : * BPM P-R Int : * ms QRS Dur : 76 ms QT Int : 290 ms P-R-T Axes : * 7 251 degrees QTcB Int : 487 ms Atrial fibrillation with rapid ventricular response with premature ventricular or aberrantly conducted complexes Abnormal ECG When compared with ECG of 22-Sep-2024 13:42, Atrial fibrillation has replaced Sinus rhythm Vent. rate has increased by 99 bpm Referred By: Eve Espinoza Electronically Signed By: LISSETTE EDMONDS
--- NOTE | 2024-09-22 16:26 | PC.NURSE ---
patient noted to be tachycardic while inserting IV according to pulse ox - 130-140. placed on teletypesetter monitor, 140-170. ekg shows afib with rvr. states she has not taken her medications today
[2024-09-22] MEDS: methylPREDNISolone Sod Succ 125 MG/2 ML VIAL 60 MG IVPUSH (16:32)
[2024-09-22] MEDS: Rivaroxaban 20 MG TABLET PO ×2 (16:33→21:01)
[2024-09-22] MEDS: Potassium Chloride Packet 20 MEQ PACKET 60 MEQ PO (16:33)
[2024-09-22] MEDS: dilTIAZem HCL 50 MG/10 ML VIAL 20 MG IVPUSH (16:33)
--- NOTE | 2024-09-22 17:02 | PC.NURSE ---
verbal order for additional 10mg of cardizem IV push
[2024-09-22] MEDS: dilTIAZem HCL 50 MG/10 ML VIAL 10 MG IVPUSH (17:05)
[2024-09-22] MEDS: Metoprolol Tartrate 100 MG TABLET PO (17:35)
[2024-09-22] MEDS: dilTIAZem HCL 50 MG/10 ML VIAL 25 MG IVPUSH (17:35)
[2024-09-22] MEDS: dilTIAZem HCL CD 240 MG CAP.ER.DEG PO (17:57)
[2024-09-22] MEDS: Magnesium Sulfate/H2O 2 GM/50 ML PIGGYBACK IV (18:40)
--- NOTE | 2024-09-22 19:08 | PHA.MEDREC ---
Addendum entered by Mi George [facility] 09/22/24 19:28: Reviewed by pharmacist Original Note: Pharmacy Consult ? Medication Reconciliation Pharmacy has completed the medication reconciliation. Spoke to patient to confirm med list. Patient states she no longer takes fluticasone prop nasal spray, Loratadine 10 mg, Lorazepam 1 mg, Preservision Areds. Patient confirmed Aripiprazole is now 20 mg NOT 30 mg, Sertraline is 125 mg (100 mg + 25mg) daily. Patient states she is only taking Advair HFA 230mcg-21 mcg ,however patient will be changing to Breo Ellipta when Advair is done. Patient states her last dose of Invega Sustenna 234 mg was 09/14/24 ( patient has a home nurse that administers it) , Levothyroxine is 112 mcg Wed-Wed and 168 mcg (1 and 1/2 tab) on Sundays.
[2024-09-22] MEDS: dilTIAZem HCL 125 MG in 0.9 % Sodium Chloride 100 ML 10 MG IVCONT (19:09)
--- NOTE | 2024-09-22 19:46 | PC.NURSE ---
Addendum entered by Mila Figueroa RN 09/23/24 05:58: 0540- pt noted to have hr ranging 60-100 with PO cardizem, pt in no notable distress. Provider Sterling made aware and asked to hold PO cardizem adn administer at scheduled time. Addendum entered by Mila Figueroa RN 09/23/24 04:32: 0430- reassessed pt, hr was noted to be 120-140, pt denies any chest pain at this time. Provider Sterling made aware, advised to administer am 240 mg cardizem PO, no new orders at this time. Addendum entered by Mila Figueroa RN 09/22/24 20:28: 2014- reassessing pt at this time HR noted to go from 120s into the 60s, dilt drip paused and EKG obtained, provider Jennie made aware. at this time dilt drip has been discontinued per MD. Original Note: pt started on cardizem drip, HR in the 115-120s. pt denies any cp at this time.
--- NOTE | 2024-09-22 20:39 | P.HPHOSP_ITS ---
History of Present Illness Date of Service: 09/22/24 Attending physician on admission: Fan Katz Chief Complaint: SOB Pt is a 69-year-old female with a PMH significant for?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 Also reporting diarrhea, myalgias, and increased fatigue, as well as subjective fever and chills. Occasional palpitations over the past few months, and increased lower leg edema especially in right leg over the past couple of days. Denies nausea, vomiting, abdominal pain. Symptom stems this morning worsened this morning and pt reports she just ?could not breathe?. Reports she has been unable to use her nebulizer at home due to cost of treatments. Of note, pt was placed on diltiazem drip in the ED for AFib with RVR. After about 2 hours on the drip pt converted normal sinus rhythm with HR in the 60s. In the ED pt was tachycardic up to 173, tachypneic up to 30, and soft BP as low as 114/53, satting at 94% on home 2L O2 NC. Labs were significant for testing positive for influenza type a, potassium 3.1, and elevated BNP of 286. CXR showed cardiomegaly and mild pulmonary vascular congestion. Venous duplex ultrasound negative for bilateral lower extremity DVTs. Initial EKG demonstrated normal sinus rhythm without evidence of significant ST elevations or depressions. Repeat EKG showed AFib with RVR of 170. Third EKG showed sinus rhythm of 65 with frequent ventricular paced complexes. Pt was treated with DuoNeb, Solu-Medrol, potassium chloride, Mag sulfate 2 g IV, diltiazem 20 mg IV x2, diltiazem 25 mg IV, diltiazem 240 mg p.o., and placed on a diltiazem drip. Pt will be admitted to the hospital for treatment and further evaluation of acute asthma/COPD exacerbation, CHF exacerbation, and AFib with RVR in the setting of acute influenza a infection. Review of Systems 2 Review of Systems: Negative except for that which is stated in the [facility] Medical History Chronic restrictive lung disease Nonischemic cardiomyopathy PAF (paroxysmal atrial fibrillation) Nocturnal hypoxemia Morbid obesity Asthma-COPD overlap syndrome Diastolic dysfunction Pneumonitis Schizophrenia, paranoid Afib Schizophrenia Atrial fib/flutter, transient Pneumonia due to COVID-19 virus Pacemaker Hypothyroid Schizophrenia HTN (hypertension) Asthma Family History Father Heart disease Mother Heart disease Surgical History History of cardiac pacemaker Hx of kidney removal Hx of removal of ovary Social History Household Members: None Housing: Apartment Do you presently have visiting nurse or other home services: Yes Alcohol intake: never Patient Tobacco Use Status: Former Tobacco user Years Smoked: 10 years +/- Advance Directives: Yes Advance Directives on File: Yes Advance Directives Date on File: 10/30/20 Do you have a plan to hurt others: No Plan service: No Current occupational status: disabled Meds Allergies Allergy/AdvReac Type Severity Reaction Status Date / Time Seasonal Allergies Allergy Unknown Verified 09/22/24 13:14 Active Medications: Current Medications Acetaminophen (Acetaminophen 325 Mg Tablet) 650 mg PO Q6H PRN PRN Reason: Pain, Mild 1-3,fever,headache Amiodarone HCl (Amiodarone Hcl 200 Mg Tablet) 200 mg PO DAILY [facility] Aripiprazole (Aripiprazole 20 Mg Tablet) 20 mg PO DAILY [facility] Atorvastatin Calcium (Atorvastatin Calcium 40 Mg Tablet) 40 mg PO DAILY [facility] Benztropine Mesylate (Benztropine Mesylate 1 Mg Tablet) 1 mg PO BID [facility] Calcium Carbonate (Calcium Carbonate 750 Mg Tab.Chew) 750 mg PO Q4H PRN PRN Reason: Heartburn Diltiazem HCl (Diltiazem Hcl Cd 240 Mg Cap.Er.Deg) 240 mg PO DAILY [facility]; Protocol Empagliflozin (Empagliflozin 10 Mg Tablet) 10 mg PO DAILY [facility] Levalbuterol HCl (Levalbuterol Hcl 1.25 Mg/3 Ml Vial.Neb) 1.25 mg INHALE RQ4H WHILE AWAKE [facility] Levalbuterol HCl (Levalbuterol Hcl 1.25 Mg/3 Ml Vial.Neb) 1.25 mg INHALE Q4H PRN PRN Reason: Shortness of Breath/Wheezing Levothyroxine Sodium (Levothyroxine Sodium 112 Mcg Tablet) 112 mcg PO MOTUWETHFRSA@0600 [facility] Levothyroxine Sodium (Levothyroxine Sodium 112 Mcg Tablet) 168 mcg PO ALLRED@0600 [facility] Magnesium Hydroxide (Milk Of Magnesia 30 Ml Oral.Susp) 30 ml PO DAILY PRN PRN Reason: Constipation Magnesium Oxide (Magnesium Oxide 400 Mg Tablet) 400 mg PO DAILY [facility] Melatonin (Melatonin 3 Mg Tablet) 6 mg PO BEDTIME PRN PRN Reason: Insomnia Methylprednisolone Sodium Succinate (Methylprednisolone Sod Succ 40 Mg/Ml Vial) 40 mg IVPUSH Q12H [facility] Metoprolol Tartrate (Metoprolol Tartrate 100 Mg Tablet) 100 mg PO BID [facility]; Protocol Montelukast Sodium (Montelukast Sodium 10 Mg Tablet) 10 mg PO BEDTIME [facility] Multivitamins/Vitamin C (Multivitamin Tablet) 1 tab PO DAILY [facility] Ondansetron HCl (Ondansetron Hcl 4 Mg/2 Ml Vial) 4 mg IVPUSH Q8H PRN PRN Reason: Nausea and Vomiting Oseltamivir Phosphate (Oseltamivir Phosphate 75 Mg Capsule) 75 mg PO Q12H [facility] Stop: 09/27/24 08:46 Rivaroxaban (Rivaroxaban 20 Mg Tablet) 20 mg PO BEDTIME [facility] Sertraline HCl (Sertraline Hcl 25 Mg Tablet) 25 mg PO DAILY [facility] Sertraline HCl (Sertraline Hcl 100 Mg Tablet) 100 mg PO DAILY [facility] Sodium Chloride (0.9 % Sodium Chloride Flush 3 Ml Syringe) 3 ml IVFLUSH QSHIFT [facility] Home Medications ?Medication ?Instructions ?Recorded ?Confirmed ?Last Taken ?Type levothyroxine 112 mcg tablet 112 mcg PO MOTUWETHFRSA@0600 07/30/20 09/22/24 09/21/24 History magnesium oxide 400 mg (241.3 mg 400 mg PO DAILY 07/30/20 09/22/24 09/21/24 History magnesium) tablet melatonin 5 mg tablet 10 mg PO BEDTIME PRN insomnia 07/30/20 09/22/24 01/10/22 History benztropine 1 mg tablet 1 mg PO BID 06/17/21 09/22/24 09/21/24 History acetaminophen 325 mg tablet 650 mg PO Q4H PRN 01/11/22 09/22/24 Unknown History fever/headache/pain uthmoalaypkz-kusiyyyi-kywkgo tablet 1 tab PO DAILY 01/11/22 09/22/24 09/21/24 History nystatin-triamcinolone 100,000 1 appl topical BID 01/11/22 09/22/24 09/21/24 History unit/g-0.1 % topical cream sertraline 25 mg tablet 25 mg PO DAILY 05/11/23 09/22/24 09/21/24 History atorvastatin 40 mg tablet 40 mg PO DAILY 09/21/23 09/22/24 09/21/24 History Oxygen Home Use 05/08/24 07/17/24 Unknown History sertraline 100 mg tablet 100 mg PO DAILY 05/08/24 09/22/24 09/21/24 History empagliflozin 10 mg tablet 10 mg PO DAILY 07/17/24 09/22/24 09/21/24 History (Jardiance) aripiprazole 20 mg tablet 20 mg PO DAILY 09/22/24 09/22/24 Unknown History diltiazem HCl 240 mg 240 mg PO DAILY 09/22/24 09/22/24 09/21/24 History capsule,extended release 24 hr levothyroxine 112 mcg tablet 168 mcg PO ALLRED@0600 09/22/24 09/22/24 09/17/24 History paliperidone palmitate 234 mg/1.5 234 mg IM Q3W 09/22/24 09/22/24 09/14/24 History mL intramuscular syringe (Invega Sustenna) rivaroxaban 20 mg tablet (Xarelto) 20 mg PO BEDTIME 09/22/24 09/22/24 09/21/24 History Physical Exam 2 Vital Signs and Narrative: Vital Signs: Last Vital Signs Temp 98.1 F 09/22/24 20:13 Pulse 68 09/22/24 20:13 Resp 29 H 09/22/24 20:13 BP 118/56 L 09/22/24 20:35 Pulse Ox 95 09/22/24 20:13 O2 Del Method Nasal Cannula 09/22/24 20:13 O2 Flow Rate 2 09/22/24 20:13 Oxygen Flow Rate 2 09/22/24 13:08 BMI result Body Mass Index 51.4 General: AOx3, in mild respiratory distress Resp: Diffuse bilateral expiratory wheezing, increased work of breathing. Audibly wheezing CVS: Irregularly irregular rhythm, tachycardic GI: +BS, NT, no distention Skin: Warm, dry Neuro: Cranial nerves II-XII grossly intact bilaterally. Motor grossly intact bilaterally Extremities: 2+ bilateral pitting lower leg edema Psych: Appropriate affect Results Labs 09/22/24 14:08 09/22/24 14:08 Labs: Laboratory Results - last 24 hr 09/22/24 14:08 MCV 93.7 MCH 30.2 MCHC 32.2 RDW 15.0 Plt Count 174 D MPV 9.4 Immature Gran % (Auto) 0.4 Neut % (Auto) 67.6 Lymph % (Auto) 23.4 [place] % (Auto) 7.1 Eos % (Auto) 1.2 Baso % (Auto) 0.3 Lymph # (Auto) 1.6 [place] # (Auto) 0.5 Eos # (Auto) 0.1 Baso # (Auto) 0.0 Abs Immat Gran (auto) 0.03 Absolute Neuts (auto) 4.7 Absolute Nucleated RBC 0.000 Nucleated RBC % (auto) 0.0 Hold Purple Top SEE NOTE PT 14.8 H INR 1.3 H Anion Gap 15 Estim Creat Clear Calc 87.0 Estimated GFR > 60 Random Glucose 130 H Calcium 9.4 Total Bilirubin 0.4 AST 24 ALT 22 Alkaline Phosphatase 80 Troponin I High Sens 3.9 B-Natriuretic Peptide 286 H Total Protein 7.1 Albumin 3.5 COVID-19 (VIC) Negative COVID-19 Clin Com See Note Influenza Type A (LIBERTY) Positive A Influenza Type B (LIBERTY) Negative Influenza A & B Note See Note Imaging Radiologist's Impressions: Impressions Chest X-Ray 09/22/24 13:17 IMPRESSION: Cardiomegaly and mild pulmonary vascular congestion. 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 Pt will be admitted to the hospital for treatment and further evaluation of acute asthma/COPD exacerbation, CHF exacerbation, and AFib with RVR in the setting of acute influenza a infection. Acute asthma/COPD overlap syndrome exacerbation in the setting of acute influenza type a infection Pt with increased SOB, MAGALLON, audible wheezing and increased work of breathing not alleviated by home inhalers or ED treatments No sepsis: Pt with viral illness, no indication for antibiotics at this time Will treat with Tamiflu, Xopenex, Solu-Medrol, guaifenesin Continue chronic 2L home O2 Monitor respiratory Acute HFpEF exacerbation Increased LLE, elevated BNP, CXR showing pulmonary edema In setting of above Will treat with Lasix 20 mg IV b.i.d. as BP allows Cardiology consult Will hold on echocardiogram pending Cardiology input Monitor I/O, daily weights, lytes Low-salt diet Monitor on telemetry AFib with RVR Pt initially presented in NSR Noted to go into AFib with RVR into the 170s Pt given multiple doses of diltiazem IV and placed on Cardizem drip After being on drip for 2 hours pt converted back to NSR with HR in the 60s Continue home p.o. amiodarone, diltiazem, metoprolol, and Xarelto Cardiology consult Monitor on telemetry HLD Continue statin Hypothyroidism Continue levothyroxine Mood disorder Continue aripiprazole and sertraline Obesity class 3 Encourage weight loss Full Code Attending:?Dr. Katz DVT Prophylaxis: On Xarelto Pt will require a hospitalization of at least two nights for treatment of?acute asthma/COPD overlap syndrome exacerbation, acute CHF exacerbation, and AFib with RVR in the setting of acute influenza type a infection. Given patient's multiple comorbidities and multiple complications stemming from flu infection, she is at serious risk of significant decline without hospital level care for administration of IV diuretics, breathing treatments, IV steroids, and close monitoring of respiratory status and cardiac function. Quality Stroke Does the patient have a stroke diagnosis?: No VTE Prior VTE?: No VTE Risk Level:: Medical - moderate - high VTE Device Contraindication: Treatment Not Indicated VTE Drug Contraindication: N/A - Med Ordered
--- OUTSIDE RECORDS SUMMARY | 2024-09-22 20:39 | XMS_ITS | Encounter Summary ---
Author Organization [facility] Address [address] [place] [address] Care Team Providers Care Meter Shop Supervisor Name Role Phone Masoud Khan MD Primary Care Provider [phone] Encounter Details Date Type Department Care Team (Late Contact Info) Description 09/22/2024 Telephone Adult [address] [phone] Masoud Khan MD [address] [place] [phone] Social History Tobacco Use Types Packs/Day Years Used Date Smoking Tobacco: Former Cigarettes Q uit: 08/23/1989 Smokeless Tobacco: Never Comments:QUIT IN HER 30'S Alcohol Use Standard Drinks/Week Comments No 0 (1 standard drink = 0.6 oz pur e alcohol) Sex and Gender Information Value Date Recorded Sex Assigned at Not on file Gender Identity Not on file Sexual Orientation Not on file Job Start Date Occupation Industry Not on file Not on file Not on file documented as of this encounter Plan of Treatment Upcoming Encounters Date Type Department Care Team (Late Contact Info) Description 09/25/2024 11:15 AM EST Office Visit Adult [address] [phone] Deann Watkins PA [address] [place] [phone] 10/17/2024 3:45 PM EST Office Visit Adult Medicine [facility] [address] [place] [phone] Masoud Khan MD [address] [place] [address] 10/30/2024 9:10 AM EDT Office Visit [facility] [address] [phone] Satnam Garcia NP [address] [place] [address] documented as of this encounter Visit Diagnoses Not on filedocumented in this encounter Care Teams Meter Shop Supervisor Relationship Specialty Start Date End Date Masoud Khan MD [address] [place] [address] PCP - General Internal Medicine 10/31/21 documented as of this encounter
--- OUTSIDE RECORDS SUMMARY | 2024-09-22 20:39 | XMS_ITS | Encounter Summary ---
Author Organization [facility] Address [address] [place] [address] Care Team Providers Care Manager Coding Name Role Phone Masoud Khan MD Primary Care Provider [phone] Encounter Details Date Type Department Care Team (Late Contact Info) Description 07/27/2024 Telephone Adult Medicine [address] [phone] Masoud Khan MD [address] [place] [address] Social History Tobacco Use Types Packs/Day Years Used Date Smoking Tobacco: Former Cigarettes Q uit: 08/23/1989 Smokeless Tobacco: Never Alcohol Use Standard Drinks/Week Comments No 0 [...] 09/25/2024 11:15 AM EST Office Visit Adult Medicine [address] [phone] Deann Watkins PA [address] [place] [address] 10/17/2024 3:45 PM EST Office Visit [facility] [place] [facility] [place] [address] [place] [address] Masoud Khan MD 4 [place] [address] 10/30/2024 9:10 AM EDT Office Visit [facility] - [facility] [address] [facility] [address] [place] [address] Satnam Garcia NP [address] [place] [address] documented as of this encounter Visit Diagnoses Diagnosis Hospital discharge follow-up Other follow-up examination Chronic respiratory failure with hypoxia (CMS/HCC) MARGOTH on CPAP Moderate persistent asthma without complication Chronic diastolic (congestive) heart failure (CMS/HCC) Paroxysmal atrial fibrillation (CMS/HCC) Atrial fibrillation Coronary artery disease involving tonawanda coronary artery of tonawanda heart without angina pectoris Acquired hypothyroidism Unspecified hypothyroidism Essential hypertension, benign Schizoaffective disorder, unspecified type (CMS/HCC) documented in this encounter Care Teams Manager Coding Relationship Specialty Start Date End Date Masoud Khan MD [address] [place] [address] PCP - General Internal Medicine 10/31/21 documented as of this encounter
--- OUTSIDE RECORDS SUMMARY | 2024-09-22 20:39 | XMS_ITS | Encounter Summary ---
Author Organization [facility] Address [address] [place] [address] Care Team Providers Care Christian Science Practitioner Name Role Phone Masoud Khan MD Primary Care Provider [phone] Encounter Details Date Type Department Care Team ([facility] st Contact Info) Description 07/24/2024 Telephone [facility] - [facility] 154 300 [facility] [address] [place] [phone] Carrol Fortune MD 300 [place] [address] Social History Tobacco Use Types Packs/Day Years [...] on file documented as of this encounter Progress Notes * Belgica Cadena RN - 07/24/2024 10:00 AM EST Called pt this AM. States she is not aware of what cardiac test she is booked for. On 07/31/24 [facility] she was contacted by Melissa and has an apt at [address] [facility]. I have made her aware this is the [facility] address. States she does not have phone number from Melissa as she was not able to look at her caller ID. I have provided the phone number for [facility] for her to f/u. States she was supposed to f/u with Dr. Alfaro but I do not see him listed as a conference specialist, all I see is a Psychiatrist with the same name. Last hospitalization was 07/13 at [facility] and she has a f/u bookedwith Haydee Tovar in August. States she will call back once she is able to figure out what she is booked for. * Wendy Valenzuela - 07/24/2024 9:39 AM EST Patient called she will be having some sort of heart procedure on 07/31/24 and is asking if se should postpone it until after she is seen in August. She does not know the specifics of the procedure. Please call her back at [phone]. documented in this encounter Plan of Treatment Upcoming Encounters Date Type Department Care Team (Late st Contact Info) Description 09/25/2024 11:15 AM EST Office Visit Adult Medicine [address] [phone] Deann Watkins PA [address] [place] [address] 10/17/2024 3:45 PM EST Office Visit Adult [address] [phone] Masoud Khan MD [address] [place] [address] 10/30/2024 9:10 AM EDT Office Visit [facility] - [facility] 154 300 [facility] [address] [place] [phone] Satnam Garcia NP [address] [place] [address] documented as of this encounter Visit Diagnoses Not on filedocumented in this encounter Care Teams Christian Science Practitioner Relationship Specialty Start Date End Date Masoud Khan MD [address] [place] [address] PCP - General Internal Medicine 10/31/21 documented as of this encounter
--- OUTSIDE RECORDS SUMMARY | 2024-09-22 20:39 | XMS_ITS | Encounter Summary ---
Author Organization [facility] Address [address] [place] [address] Care Team Providers Care Certified Dietary Manager Name Role Phone Masoud Khan MD Primary Care Provider [phone] Reason for Visit * Reason Onset Date Comments Cough 09/22/2024 Encounter Details Date Type Department Care Team ([facility] st Contact Info) Description 09/22/2024 Telephone Adult Medicine [facility] [address] [place] [phone] Masoud Khan MD [address] [place] [address] Cough Social History Tobacco Use Types Packs/Day Years [...] as of this encounter Progress Notes * Saloni Rocha RN - 09/22/2024 10:59 AM EST Spoke with pt's daughter , she will rebook pt and if over the weekend pt has any new or worsening symptoms , she will take her to the ed or [facility]CC Will encourage home care booked for 2/3 with mat watkins * Marcela Pierog - 09/22/2024 10:48 AM EST Please see triage message from yesterday. Patient had an appointment scheduled with Dr hKan for this morning states she can't make it, her daughter can't get her here. She rescheduled to Oct 17 but I don't think she should wait that long to be seen. Thank you documented in this encounter Plan of Treatment Upcoming Encounters Date Type Department Care Team (Late st Contact Info) Description 09/25/2024 11:15 AM EST Office Visit Adult Medicine [address] [phone] Deann Watkins PA [address] [place] [phone] 10/17/2024 3:45 PM EST Office Visit [address] [phone] Masoud Khan MD [address] [place] [address] 10/30/2024 9:10 AM EDT Office Visit [facility] - [facility] [address] [phone] Satnam Garcia NP 300 [place] [address] documented as of this encounter Visit Diagnoses Not on filedocumented in this encounter Care Teams Certified Dietary Manager Relationship Specialty Start Date End Date Masoud Khan MD [address] [place] [address] PCP - General Internal Medicine 10/31/21 documented as of this encounter
--- OUTSIDE RECORDS SUMMARY | 2024-09-22 20:39 | XMS_ITS | Encounter Summary ---
Author Organization [facility] Address [address] [place] [address] Care Team Providers Care Tent Assembler Name Role Phone Masoud Khan MD Primary Care Provider [phone] Reason for Visit * Reason Onset Date Comments provider call back 08/02/2024 Encounter Details Date Type Department Care Team ([facility] Contact Info) Description 08/02/2024 Telephone Adult Medicine [address] [phone] Masoud Khan MD [address] [place] [phone] provider call back Social History Tobacco Use Types Packs/Day Years [...] on file documented as of this encounter Ordered Prescriptions Prescription Sig Dispensed Refills Start Date End Da te albuterol 2.5 mg /3 mL (0.083 %) nebulizer solutionIndications:Hosp ital discharge follow-up,Chronic respiratory failure with hypoxia (CMS/HCC),MARGOTH on CPAP,Moderate persistent asthma without complication,Chronic diastolic (congestive) heart failure (CMS/HCC),Paroxysmal atrial fibrillation (CMS/HCC),Coronary artery disease involving s[place]qualmie coronary artery of s[place]mie heart without angina pectoris,Acquired hypothyroidism,Essential hypertension, benign,Schizoaffective disorder, unspecified type (CMS/HCC) Take 3 mL (2.5 mg total) by nebulization 4 (four) times a day if needed for wheezing or shortness of breath. 300 mL 2 08/04/2024 08/21/2024 documented in this encounter Progress Notes * Masoud Khan MD - 08/04/2024 10:34 AM EST Please inform the patient that I sent a prescription for albuterol nebulization solution * Belen Kingsley MA - 08/04/2024 10:27 AM EST Please resend Albuterol Nebulizer solution. Order pending. * Deisy Henry - 08/02/2024 9:21 AM EST Pt received nebulizer machine but states that she has not received the medication to put in it. Please advise documented in this encounter Plan of Treatment Upcoming Encounters Date Type Department Care Team (Late st Contact Info) Description 09/25/2024 11:15 AM EST Office Visit Adult Medicine [address] [phone] Deann Watkins PA [address] [place] [address] 10/17/2024 3:45 PM EST Office Visit Adult Medicine [address] [phone] Masoud Khan MD [address] [place] [address] 10/30/2024 9:10 AM EDT Office Visit [facility] 154 300 [facility] 154 [place] [address] Satnam Garcia NP [address] [place] [address] documented as of this encounter Visit Diagnoses Diagnosis Hospital discharge follow-up Other follow-up examination Chronic respiratory failure with hypoxia (CMS/HCC) MARGOTH on CPAP Moderate persistent asthma without complication Chronic diastolic (congestive) heart failure (CMS/HCC) Paroxysmal atrial fibrillation (CMS/HCC) Atrial fibrillation Coronary artery disease involving s[place]qualmie coronary artery of s[place] heart without angina pectoris Acquired hypothyroidism Unspecified hypothyroidism Essential hypertension, benign Schizoaffective disorder, unspecified type (CMS/HCC) documented in this encounter Discontinued Medications Medication Sig Discontinue Reason Start Date End Da te albuterol 2.5 mg /3 mL (0.083 %) nebulizer solutionIndications:Hosp ital discharge follow-up,Chronic respiratory failure with hypoxia (CMS/HCC),MARGOTH on CPAP,Moderate persistent asthma without complication,Chronic diastolic (congestive) heart failure (CMS/HCC),Paroxysmal atrial fibrillation (CMS/HCC),Coronary artery disease involving s[place]qual[place] coronary artery of s[place] heart without angina pectoris,Acquired hypothyroidism,Essential hypertension, benign,Schizoaffective disorder, unspecified type (CMS/HCC) Take 3 mL (2.5 mg total) by nebulization 4 (four) times a day if needed for wheezing or shortness of breath. Reorder 07/05/2024 08/04/2024 documented as of this encounter Care Teams Tent Assembler Relationship Specialty Start Date End Date Masoud Khan MD [address] [place] [address] PCP - General Internal Medicine 10/31/21 documented as of this encounter
--- OUTSIDE RECORDS SUMMARY | 2024-09-22 20:39 | XMS_ITS | Encounter Summary ---
Author Organization [facility] Address [address] [place] [address] Care Team Providers Care Aerial Hurricane Hunter Name Role Phone Masoud Khan MD Primary Care Provider [phone] Reason for Visit * Reason Onset Date Comments question on lab 07/28/2024 Encounter Details Date Type Department Care Team ([facility] st Contact Info) Description 07/28/2024 Telephone [place] [facility] [address] [place] [phone] Masoud Khan MD [address] [place] [address] question on lab Social History Tobacco Use Types Packs/Day Years [...] as of this encounter Progress Notes * Satnam Garcia NP - 07/31/2024 3:22 PM EST Ok thank you. * Amparo Moreira RN - 07/31/2024 2:33 PM EST I called Shahla. She see's Dr. Vo, Staff Nurse at [facility]. Upon [facility] note review, pt is scheduled for an afib ablation on 08/14/24. Per pt, she is questioning if she should undergo this procedure and mentioned she has a pacemaker. I advised pt to call their office to further discuss her concerns in this regard. She has a follow up with you scheduled for 08/29/24. * Syed Jamaal - 07/28/2024 4:08 PM EST Pt has a cardiology appt coming up and wants to find out if she needs to have a cardiac ablation. Pls advise. Pt call can be returned to [phone]. [facility]. documented in this encounter Plan of Treatment Upcoming Encounters Date Type Department Care Team (Late st Contact Info) Description 09/25/2024 11:15 AM EST Office Visit Adult Medicine [address] [phone] Deann Watkins PA [address] [place] [address] 10/17/2024 3:45 PM EST Office Visit [address] [phone] Masoud Khan MD [address] [place] [address] 10/30/2024 9:10 AM EDT Office Visit [facility] [address] [facility] 154 [place] [phone] Satnam Garcia NP [address] [place] [address] documented as of this encounter Visit Diagnoses Not on filedocumented in this encounter Care Teams Aerial Hurricane Hunter Relationship Specialty Start Date End Date Masoud Khan MD [address] [place] [address] PCP - General Internal Medicine 10/31/21 documented as of this encounter
--- OUTSIDE RECORDS SUMMARY | 2024-09-22 20:40 | XMS_ITS | Encounter Summary ---
Author Organization [facility] Address [address] [place] [address] Care Team Providers Care Flotation Tender Helper Name Role Phone Masoud Khan MD Primary Care Provider [phone] Reason for Visit * Reason Onset Date Comments Med Refill 08/29/2024 Furosemide, Amio darone Encounter Details Date Type Department Care Team ([facility] st Contact Info) Description 08/29/2024 Telephone [facility] 154 300 [facility] 154 [place] [address] Julia Garcia NP 300 [place], [place] [phone] Med Refill (Furosemide, Amiodarone ) Social History Tobacco Use Types Packs/Day Years [...] as of this encounter Progress Notes * Grace Barrera RN - 08/29/2024 10:08 AM EST EDWIN 2020 PATRICK next appt scheduled for 09/04/24. Spoke with Rosalie at [facility]. Pt has refills for Furosemide and prescription was sent by Dr Khan 08/01/24 with refills Amiodarone was filled 08/25/24 and is out for delivery. Pt will get a 90 day supply. Pt should get ittoday or tomorrow. Amiodarone does need a refill, I asked pt to ask JULIA for refill at appt 09/04/24LOV 2020 Informed pt to make sure she keeps appt 09/04/24 with JULIA as she has not been here since 2020 Pt confirmed daughter is bringing her to appt * Shira Win - 08/29/2024 9:04 AM EST Patient needs a refill for Furosemide 20 mg 1 tab daily and Amiodarone 200 mg 1 tab daily. Send to [facility] for a 90 day supply. documented in this encounter Plan of Treatment Upcoming Encounters Date Type Department Care Team (Late st Contact Info) Description 09/25/2024 11:15 AM EST Office Visit Adult Medicine [address] [phone] Deann Watkins PA [address] [place] [address] 10/17/2024 3:45 PM EST Office Visit [address] [phone] Masoud Khan MD [address] [place] [address] 10/30/2024 9:10 AM EDT Office Visit [facility] [address] [facility] 154 [place] [phone] Julia Garcia NP 300 [place] [address] documented as of this encounter Visit Diagnoses Not on filedocumented in this encounter Care Teams Flotation Tender Helper Relationship Specialty Start Date End Date Masoud Khan MD [address] [place] [address] PCP - General Internal Medicine 10/31/21 documented as of this encounter
--- OUTSIDE RECORDS SUMMARY | 2024-09-22 20:40 | XMS_ITS | Encounter Summary ---
Author Organization [facility] Address [address] [place] [address] Care Team Providers Care Social Work Msw Name Role Phone Masoud Khan MD Primary Care Provider [phone] Reason for Visit * Reason Onset Date Comments Fever 09/21/2024 Sore Throat 09/21/2024 Encounter Details Date Type Department Care Team ([facility] Contact Info) Description 09/21/2024 Telephone Adult Medicine [address] [phone] Masoud Khan MD [address] [place] [phone] Fever; Sore Throat Social History Tobacco Use Types Packs/Day Years [...] Progress Notes * Saloni Rocha RN - 09/21/2024 11:28 AM EST Pt has had cough and congestion for 1 Days, Pt has not done Covid or flu test No chest wall pain with deep breath and cough, denies SOB ( has no COPD/ asthma or any respiratory condition ) , able to speak in full sentences and has no audible wheezing, cough is non productive for Sputum, feels like she has a fever (has not taken temp ) able to take PO with no difficulty, denies N/V/D, No abd pain pt is also C/O cough, congestion body aches, headache,ear pain,sinus pain,fatigue , sore throat Advised home care following the Cough/ breathing problems Protocol. RN reinforced telephone consultation and advice. Reviewed with the patient the signs and symptoms to watch for that would require immediate attention. If symptoms change, worsen or increase in intensity, to call back immediately. Appointment declined for today she will see dr khan tomorrow at 11:30 * Marcela Junior - 09/21/2024 11:18 AM EST Patient call requires triage: Symptoms patient is presenting: fever and sore throat - bodyaches How long has patient had these symptoms?: few days For ALL patients calling to schedule any appointment (routine, sick visit, follow up, consult, etc.) in the outpatient setting please ask the following questions: Do you have fever of higher than 101, sore throat with difficulty swallowing or severe shortness ofbreath? no If YES to any of these above symptoms, send a message to triage and do not book. Red dot. If no, an audio or video visit should be booked. Have you had close contact with someone with Coronavirus in the last 14 days? no Have you traveled abroad? no Have you traveled recently to another state outside of [place], [place], [place], [place], [place], [place], [place]? no o If yes, did you quarantine for 14 days or have a negative covid test? no If yes to any of the above, patient is not to be scheduled in office until after 14 day quarantine or negative covid test. If pain or injury related was it due to an accident at work or from a motor vehicle accident? If yes, date of accident/Injury: No If yes, gather 3rd libertarian insurance information Third Libertarian Information: not applicable PCP: Masoud Khan MD Payor: MEDICARE / Plan: MEDICARE PART A & B / Product Type: Medicare / documented in this encounter Plan of Treatment Upcoming Encounters Date Type Department Care Team (Late st Contact Info) Description 09/25/2024 11:15 AM EST Office Visit Adult Medicine [address] [phone] Deann Watkins PA [address] [place] [address] 10/17/2024 3:45 PM EST Office Visit [address] [phone] Masoud Khan MD [address] [place] [address] 10/30/2024 9:10 AM EDT Office Visit [facility] [address] [phone] Satnam Garcia PANTRY COOK [address] [place] [address] documented as of this encounter Visit Diagnoses Not on filedocumented in this encounter Care Teams Social Work Msw Relationship Specialty Start Date End Date Masoud Khan MD [address] [place] [address] PCP - General Internal Medicine 10/31/21 documented as of this encounter
--- OUTSIDE RECORDS SUMMARY | 2024-09-22 20:40 | XMS_ITS | Clinical Summary ---
Author Organization [facility] [address] [facility] Address [address] [facility] [place] [address] Phone Care Team Providers Care Hi Lo Driver Name Role Phone Masoud Khan MD Primary Care Provider Allergies Active Allergy Reactions Criticality Noted Date Comments Other 02/19/2016 Seasonal Allergies Medications Medication Sig Dispensed Refills Start Date End Date Status albuterol HFA (PROAIR HFA ; PROVENTIL HFA ; VENTOLIN HFA) 90 mcg/actuation inhaler Inhale 2 Puffs into the lungs every 4 hours as needed. 12/16/19 22 Active benztropine (COGENTIN) 1 mg tablet Take 1 tablet (1 mg total) by mouth 1 (one) time each day. 07/06/20 19 Active magnesium oxide (MAG-OX) 400 mg (241.3 elemental magnesium) tablet Take 1 Tablet by mouth daily. 04/28/20 24 Active nystatin (MYCOSTATIN) cream Apply small amount twice a day to affected area 10/18/19 24 025 Active paliperidone palmitate (Invega Sustenna) 234 mg/1.5 mL syringe Inject 1.5 mL (234 mg total) into the shoulder, thigh, or buttocks every 30 (thirty) days. 07/06/20 19 Active rivaroxaban (Xarelto) 20 mg tablet Take 1 Tablet by mouth daily. 11/21/19 23 Active sertraline (ZOLOFT) 100 mg tablet Take 1 Tab by mouth daily. Active triamcinolone (KENALOG) 0.1 % cream Apply to affected area(s) twice daily for up to 2 weeks. 01/06/20 24 Active atorvastatin (LIPITOR) 40 mg tablet Take 1 tablet (40 mg total) by mouth 1 (one) time each day. 90 tablet 1 07/05/20 24 Active fluticasone furoate-vilanteroL (Breo Ellipta) 100-25 mcg/dose inhaler Inhale 1 puff by mouth 1 (one) time each day. 1 each 4 07/05/20 24 025 Active levothyroxine (SYNTHROID, LEVOTHROID) 112 mcg tablet Take 1 tablet (112 mcg total) by mouth See administration instructions. 1 tablet daily from Wednesday to Wednesday and 1.5 tablets on Wednesday 96 tablet 1 07/10/20 24 Active furosemide (LASIX) 20 mg tablet Take 1 tablet (20 mg total) by mouth 1 (one) time each day. 90 tablet 1 08/01/20 24 Active Jardiance 10 mg tablet TAKE 1 TABLET (10 MG TOTAL) BY MOUTH 1 (ONE) TIME EACH DAY IN THE MORNING. 30 tablet 09/11/19 25 Active ARIPiprazole (ABILIFY) 20 mg tablet Take 1 tablet (20 mg total) by mouth 1 (one) time each day. Active metoprolol tartrate (LOPRESSOR) 100 mg tablet Take 1 tablet (100 mg total) by mouth 2 (two) times a day. Active ARIPiprazole (ABILIFY) 15 mg tablet Take 1 Tablet by mouth daily. 025 Discontinued(Du plicate order) fluticasone propionate (FLONASE) 50 mcg/actuation nasal spray SPRAY ONCE INTO EACH NOSTRIL 2 (two) times a day 07/04/20 21 025 Discontinued(Pr escriber Discontinued) nystatin (MYCOSTATIN) 100,000 unit/gram powder Apply topically 3 times per day until healed 10/18/19 24 025 Discontinued(Du plicate order) sertraline (ZOLOFT) 50 mg tablet Take 50 mg by mouth daily. 025 Discontinued(Du plicate order) amiodarone (PACERONE) 200 mg tablet Take 1 tablet (200 mg total) by mouth 1 (one) time each day. 06/29/20 24 025 Discontinued(Pr escriber Discontinued) metoprolol succinate (TOPROL-XL) 100 mg 24 hr tablet Take 1 tablet (100 mg total) by mouth 1 (one) time each day. Do not crush or chew. 025 Discontinued(Du plicate order) empagliflozin (JARDIANCE) 10 mg tablet Take 1 tablet (10 mg total) by mouth 1 (one) time each day in the morning. 30 tablet 1 07/27/20 24 025 Discontinued(Re order) albuterol 2.5 mg /3 mL (0.083 %) nebulizer solutionIndication s:Hospital discharge follow-up,Chronic respiratory failure with hypoxia (CMS/HCC),MARGOTH on CPAP,Moderate persistent asthma without complication,Chron ic diastolic (congestive) heart failure (CMS/HCC),Paroxysm al atrial fibrillation (CMS/HCC),Coronary artery disease involving zuni coronary artery of zuni heart without angina pectoris,Acquired hypothyroidism,Ess ential hypertension, benign,Schizoaffec tive disorder, unspecified type (CMS/HCC) Take 3 mL (2.5 mg total) by nebulization 4 (four) times a day if needed for wheezing or shortness of breath. 300 mL 08/28/19 025 Discontinued(Pr escriber Discontinued) empagliflozin (JARDIANCE) 10 mg tablet Take 1 tablet (10 mg total) by mouth 1 (one) time each day in the morning. 90 tablet 1 08/31/19 25 025 Discontinued Active Problems Problem Noted Date Diagnosed Date Chronic diastolic (congestive) heart failure Assessment & Plan (09/04/2024 4:48 PM EST): Patient had recovery of ejection fraction. Continue on beta-teresa, GLT 2 inhibitor. Patient could potentially benefit from initiation of MARCE/ARB or Entresto. Can look to initiate at next appointment. Orders: Ambulatory referral to Cardiology B-type natriuretic peptide; Future Basic metabolic panel; Future Morbid obesity with BMI of 50.0-59.9, adult 03/2024 Osteoarthritis of left knee 12/29/2021 Prediabetes 11/01/2021 Respiratory failure, unspecified with hypoxia Overview (06/30/2024): On continuous 3L Paroxysmal atrial fibrillation 07/26/2020 Assessment & Plan (09/04/2024 4:48 PM EST): Patient is in A-fib today V paced. Patient does not seem to be perceptive of when she is in atrial fibrillation as she reports she does not have any symptoms. Will look to discontinue the amiodarone. On rate control with metoprolol, and utilizing Xarelto. Patient denies any abnormal bleeding. She has a [id number] score of 5, and should remain anticoagulated. Orders: Ambulatory referral to Cardiology ECG 12 lead Basic metabolic panel; Future CAD (coronary artery disease) 04/08/2020 Overview (06/30/2024): Follows with cardiology ([facility]) had a nuclear stress test that showed distal septal ischemia. Sick sinus syndrome 02/13/2020 Atrial flutter 04/25/2019 Overview (06/30/2024): With RVR follows with cardiololgy Overactive bladder 09/26/2013 MARGOTH on CPAP 10/02/2010 Overview (06/30/2024): Non compliant with CPAP (October 2021) Schizoaffective disorder 05/23/2010 Essential hypertension, benign 01/06/2010 Assessment & Plan (09/04/2024 4:48 PM EST): Patient should check blood pressure measurements at home. I will not change medication as she is slightly hypertensive today, but states that she is nervous. I am going to have her take blood pressure measurements at home record them and get back to the office in 10 days. Orders: Ambulatory referral to Cardiology Basic metabolic panel; Future Asthma 12/09/2009 Anxiety 05/29/2009 Depression 05/29/2009 Hypercholesterolemia 05/29/2009 Hypothyroid 05/29/2009 Osteoarthritis 05/29/2009 Encounters Date Type Department Care Team Description 09/22/2024 Telephone Adult Medicine [address] [phone] Masoud Khan MD Cough 09/22/2024 Telephone Adult Medicine [address], [place] [phone] Masoud Khan MD 09/21/[address] [phone] Masoud Khan MD Fever; Sore Throat 09/07/2024 Telephone [facility] [address] [place] [phone] Satnam Garcia NP d/c amiodarone 09/04/2024 1:10 PM EST Office Visit [facility] Cardiology [facility] [address] [facility] [address] [place] [phone] Satnam Garcia NP Hospital discharge follow-up; Chronic diastolic (congestive) heart failure (CMS/HCC); Paroxysmal atrial fibrillation (CMS/HCC); Essential hypertension, benign; MARGOTH on CPAP; Coronary artery disease involving zuni coronary artery of zuni heart without angina pectoris; Chronic respiratory failure with hypoxia (CMS/HCC); Moderate persistent asthma without complication; Acquired hypothyroidism; Schizoaffective disorder, unspecified type (CMS/HCC) 08/29/2024 Telephone [facility] [address] [facility] [address] [place] [phone] Satnam Garcia NP Med Refill (Furosemide, Amiodarone ) 08/18/2024 Billing Patient Not Present [address] [phone] Masoud Khan MD Acute and chronic respiratory failure with hypoxia (CMS/HCC) (Primary Dx); COPD with acute exacerbation (CMS/HCC); Asthma with acute exacerbation, unspecified asthma severity, unspecified whether persistent; Acute on chronic combined systolic and diastolic heart failure (CMS/HCC); Atrial fibrillation, unspecified type (CMS/HCC); Hypotension, unspecified hypotension type; Superficial mycosis; Schizoaffective disorder, unspecified type (CMS/HCC); Hypothyroidism, unspecified type; Obesity, unspecified class, unspecified obesity type, unspecified whether serious comorbidity present; Body mass index 50.0-59.9, adult ([facility]); Anemia, unspecified type; Hyperlipidemia, unspecified hyperlipidemia type; Presence of cardiac pacemaker; Dependence on supplemental oxygen; correction (current) use of anticoagulants; correction (current) use of oral hypoglycemic drugs; 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; correction (current) use of inhaled steroids; Problems related to living alone 08/17/[address] [phone] Masoud Khan MD Shoulder Pain (Right Shoulder) 08/02/[address] [phone] Masoud Khan MD provider call back 07/28/[address] [phone] Masoud Khan MD question on lab 07/27/[address] [phone] Masoud Khan MD 07/24/[address] [phone] Masoud Khan MD Fitting for DME 07/24/2024 Telephone [facility] [address] [phone] Carrol Fortune MD 07/21/[address] [phone] Masoud Khan MD Medication Problem 07/11/2024 [facility] [address] [place] [phone] Marcela Bai MA Medication Problem (Neb solution does not require a prior authorization. It needs to be run through medicare part B) 07/10/2024 1:00 PM EST Lab Draw [address] Hospital discharge follow-up; Chronic respiratory failure with hypoxia (CMS/HCC); MARGOTH on CPAP; Moderate persistent asthma without complication; Chronic diastolic (congestive) heart failure (CMS/HCC); Paroxysmal atrial fibrillation (CMS/HCC); Coronary artery disease involving zuni coronary artery of zuni heart without angina pectoris; Acquired hypothyroidism; Essential hypertension, benign; Schizoaffective disorder, unspecified type (CMS/HCC) 07/05/2024 1:00 PM EST Office Visit Adult Medicine [address] [phone] Masoud Khan MD Hospital discharge follow-up (Primary Dx); Chronic respiratory failure with hypoxia (CMS/HCC); MARGOTH on CPAP; Moderate persistent asthma without complication; Chronic diastolic (congestive) heart failure (CMS/HCC); Paroxysmal atrial fibrillation (CMS/HCC); Essential hypertension, benign; Coronary artery disease involving zuni coronary artery of zuni heart without angina pectoris; Acquired hypothyroidism; Schizoaffective disorder, unspecified type (CMS/HCC) 07/05/2024 Telephone [facility] [address] [facility] [address] [place] [address] Carrol Fortune MD Hospital Follow-up 07/04/2024 Telephone Adult Medicine [address] [phone] Masoud Khan MD VNA 07/03/2024 Telephone Adult Medicine [address] [phone] Masoud Khan MD VNA 06/29/2024 Telephone Adult [address] [phone] Masoud Khan MD VNA CALL from Last 3 Months Immunizations Name Administration Dates Next Due Influenza trivalent, 0.5mL (Fluad) 65yo and olde r 04/30/2022,05/13/2021 Surgical History Surgery Date Site/Laterality Comments OTHER SURGICAL HISTORY PROCEDURE: NC SALPINGO-OOPHORECTOMY COMPL/PRTL UNI/BI SPX; COMMENT: age 20's removed ROV, cyst OTHER SURGICAL HISTORY PROCEDURE: NC EXCISION PILONIDAL CYST/SINUS COMPLICATED OTHER SURGICAL HISTORY 02/15/2017 Right PROCEDURE: NC LAPAROSCOPY SURG PARTIAL NEPHRECTOMY; COMMENT: Dr. Patterson Medical History Medical History Date Comments Osteoarthritis 05/29/2009 DX:Osteoarthriti s Hypothyroid 05/29/2009 DX:Hypothyroid Hypercholesterolemia 05/29/2009 DX:Hypercho lesterolemia Anxiety 05/29/2009 DX:Anxiety Depression 05/29/2009 DX:Depression Schizoaffective disorder ([facility]/HCC) DX:Schizoaffective disorder ([facility]); COMMENT: dr Renetta muller [facility] Angiomyolipoma of kidney DX:Any omyolipoma of kidney Morbid obesity with BMI of 4 5.0-49.9, adult ([facility]/HCC) 11/16/2013 DX:Morbid obesity with BMI o f 45.0-49.9, adult ([facility]); COMMENT: BMI 55.8 on 10/16/13. Diastolic dysfunction 02/08/2017 DX:Diastol ic dysfunction Essential hypertension, benign 01/06/2010 D X:Essential hypertension, benign Overactive bladder 09/26/2013 DX:Overactive bladder Obstructive sleep apnea 10/02/2010 DX:Obstr uctive sleep apnea Asthma 12/09/2009 DX:Asthma Mammogram declined 05/30/2019 DX:Mammogram declined Colonoscopy refused 05/30/2019 DX:Colonosco py refused Family History Medical History Relation Name Comments Other cancer Aunt does not know w hich kind Heart attack Father Breast cancer Neg Hx Colon cancer Neg Hx Ovarian cancer Neg Hx Uterine cancer Neg Hx Relation Name Status Comments Aunt Brother Alive Father Mother Sister Alive Social History Tobacco Use Types Packs/Day Years Used Date Smoking Tobacco: Former Cigarettes Q uit: 08/23/1989 Smokeless Tobacco: Never Tobacco Cessation:Counseling Given: Not Answered Comments:QUIT IN HER 30'S Alcohol Use Standard Drinks/Week Comments No 0 (1 standard drink = 0.6 oz pur e alcohol) Sex and Gender Information Value Date Recorded Sex Assigned at Not on file Gender Identity Not on file Sexual Orientation Not on file Job Start Date Occupation Industry Not on file Not on file Not on file Obstetrics History Last Filed Vital Signs Vital Sign Reading Time Taken Comments Blood Pressure 142/80 09/04/2024 1:11 PM EST Pulse 64 09/04/2024 1:11 PM EST Temperature 36.5 ??C (97.7 ??F) 07/05/2024 1:09 PM ES T Respiratory Rate 22 07/05/2024 1:09 PM EST Oxygen Saturation 95% 09/04/2024 1:11 PM EST 2L of oxygen Inhaled Oxygen Concentration - - Weight 137 kg (301 lb) 09/04/2024 1:11 PM EST Height 160 cm (5' 3 ) 09/04/2024 1:11 PM EST Body Mass Index 53.32 09/04/2024 1:11 PM EST Plan of Treatment Upcoming Encounters Date Type Department Care Team (Late st Contact Info) Description 09/25/2024 11:15 AM EST Office Visit Adult Medicine [address] [phone] Deann Watkins PA [address] [place] [address] 10/17/2024 3:45 PM EST Office Visit [address] [phone] Masoud Khan MD [address] [place] [phone] 10/30/2024 9:10 AM EDT Office Visit [facility] [address] [facility] [address] [place] [phone] Satnam Garcia NP [address] [place] [address] Health Maintenance Due Date Last Done Comments Pneumococcal Vaccine: 65+ Years (1 of 2 - PCV) 1961 DTaP,Tdap,and Td Vaccines (1 - Tdap) 1974 Zoster Vaccines (1 of 2) 2005 RSV Immunization Patients 60+ Years Old (1 - Risk 60-74 years 1-dose series) 2015 Depression Screening 08/01/2022 Falls Risk Assessment 08/01/2022 Social Influencers of Health Screening 08/01/2022 Medicare Annual Wellness Visit 12/03/2023 12/02/2022 COVID-19 Vaccine ( season) 2024 10/03/2021, 03/11/2021, 02/11/2021 Breast Cancer Screening 05/28/2024 05/28/2022, 01/19 Hypertension/CHF/CAD Annual BMP Blood Test 07/10/2025 07/10/2024, 10/31/2021 Cholesterol Screening (Lipid Panel) 10/31/2026 10/31/2021 Colorectal Cancer Screening: Colonoscopy 05/30/2029 05/30/2019 Osteoporosis Screening (Bone Density Screening) 10/07/2031 10/07/2021 Hepatitis C Screening Completed 06/27/2013 Influenza Vaccine Completed 06/27/2024, , 05/13/2021, Additional history exists HIB Vaccines Aged Out No longer eligi ble based on patient's age to complete this topic HPV Vaccines Aged Out No longer eligi ble based on patient's age to complete this topic Hepatitis A Vaccines Aged Out No long er eligible based on patient's age to complete this topic Hepatitis B Vaccines Aged Out No long er eligible based on patient's age to complete this topic IPV Vaccines Aged Out No longer eligi ble based on patient's age to complete this topic MMR Vaccines Aged Out No longer eligi ble based on patient's age to complete this topic Meningococcal ACWY Vaccine Aged Out N o longer eligible based on patient's age to complete this topic RSV Immunization Patients Under 20 months Aged Out No longer eligible based on patient's age to complete this topic Varicella Vaccines Aged Out No longer eligible based on patient's age to complete this topic Procedures Procedure Name Priority Date/Time Associated Diagnosis Comments ECG 12-LEAD Routine 09/04/2024 4:49 PM EST Paroxysmal atrial fibrillation (CMS/HCC) TRIIODOTHYRONINE FREE Routine 07/10/2024 1:12 PM EST Hospital discharge follow-up Chronic respiratory failure with hypoxia (CMS/HCC) MARGOTH on CPAP Moderate persistent asthma without complication Chronic diastolic (congestive) heart failure (CMS/HCC) Paroxysmal atrial fibrillation (CMS/HCC) Coronary artery disease involving zuni coronary artery of zuni heart without angina pectoris Acquired hypothyroidism Essential hypertension, benign Schizoaffective disorder, unspecified type (CMS/HCC) FREE THYROXINE WITH REFLEX TO FREE TRIIODOTHYRONINE Routine 07/10/2024 1:12 PM EST Hospital discharge follow-up Chronic respiratory failure with hypoxia (CMS/HCC) MARGOTH on CPAP Moderate persistent asthma without complication Chronic diastolic (congestive) heart failure (CMS/HCC) Paroxysmal atrial fibrillation (CMS/HCC) Coronary artery disease involving zuni coronary artery of zuni heart without angina pectoris Acquired hypothyroidism Essential hypertension, benign Schizoaffective disorder, unspecified type (CMS/HCC) CBC WITH AUTO DIFFERENTIAL Routine 07/10/2024 1:12 PM EST Hospital discharge follow-up Chronic respiratory failure with hypoxia (CMS/HCC) MARGOTH on CPAP Moderate persistent asthma without complication Chronic diastolic (congestive) heart failure (CMS/HCC) Paroxysmal atrial fibrillation (CMS/HCC) Coronary artery disease involving zuni coronary artery of zuni heart without angina pectoris Acquired hypothyroidism Essential hypertension, benign Schizoaffective disorder, unspecified type (CMS/HCC) CBC AND DIFFERENTIAL Routine 07/10/2024 1:12 PM EST Hospital discharge follow-up Chronic respiratory failure with hypoxia (CMS/HCC) MARGOTH on CPAP Moderate persistent asthma without complication Chronic diastolic (congestive) heart failure (CMS/HCC) Paroxysmal atrial fibrillation (CMS/HCC) Coronary artery disease involving zuni coronary artery of zuni heart without angina pectoris Acquired hypothyroidism Essential hypertension, benign Schizoaffective disorder, unspecified type (CMS/HCC) MAGNESIUM Routine 07/10/2024 1:12 PM EST Hospital discharge follow-up Chronic respiratory failure with hypoxia (CMS/HCC) MARGOTH on CPAP Moderate persistent asthma without complication Chronic diastolic (congestive) heart failure (CMS/HCC) Paroxysmal atrial fibrillation (CMS/HCC) Coronary artery disease involving zuni coronary artery of zuni heart without angina pectoris Acquired hypothyroidism Essential hypertension, benign Schizoaffective disorder, unspecified type (CMS/HCC) THYROID STIMULATING HORMONE WITH REFLEX TO FREE T4 AND FREE T3 Routine 07/10/2024 1:12 PM EST Hospital discharge follow-up Chronic respiratory failure with hypoxia (CMS/HCC) MARGOTH on CPAP Moderate persistent asthma without complication Chronic diastolic (congestive) heart failure (CMS/HCC) Paroxysmal atrial fibrillation (CMS/HCC) Coronary artery disease involving zuni coronary artery of zuni heart without angina pectoris Acquired hypothyroidism Essential hypertension, benign Schizoaffective disorder, unspecified type (CMS/HCC) BASIC METABOLIC PANEL Routine 07/10/2024 1:12 PM EST Hospital discharge follow-up Chronic respiratory failure with hypoxia (CMS/HCC) MARGOTH on CPAP Moderate persistent asthma without complication Chronic diastolic (congestive) heart failure (CMS/HCC) Paroxysmal atrial fibrillation (CMS/HCC) Coronary artery disease involving zuni coronary artery of zuni heart without angina pectoris Acquired hypothyroidism Essential hypertension, benign Schizoaffective disorder, unspecified type (CMS/HCC) EXTERNAL ECHO Routine 06/25/2024 9:51 AM EST SCREENING MAMMOGRAPHY BI 2-VIEW BREAST INC CAD Routine 05/28/2022 1:58 PM EDT Encounter for gynecological examination (general) (routine) without abnormal findings LIPID PANEL Routine 10/31/2021 DXA BONE DENSITY STUDY 1+ SITS AXIAL SKEL Routine 10/07/2021 11:30 AM EST Encounter for screening for osteoporosis COLONOSCOPY Routine 05/30/2019 HEPATITIS C SCREENING Routine 06/27/2013 from Last 3 Months or Most Recently Relevant to Health Maintenance Results * ECG 12 lead (09/04/2024 4:49 PM EST) Ventricular Rate ECG 64 BPM GEMUSE Atrial Rate 43 BPM GEMUSE QRS Duration 200 ms GEMUSE Q-T Interval 530 ms GEMUSE QTc 546 ms GEMUSE R Austin -31 degrees GEMUSE T [place] 109 degrees GEMUSE ECG Interpretation Ventricular-pa jose miguel rhythm with frequent Premature ventricular complexes Abnormal ECG When compared with ECG of 16-JUN-2019 14:10, Electronic ventricular pacemaker has replaced Sinus rhythm Confirmed by Khris ENNIS JOHN ([id number]) on 09/04/2024 10:30:26 PM GEMUSE 09/04/2024 1:10 PM EST 09/04/2024 10:30 PM EST Satnam Garcia [employer] ECG ORDERABLES GEMUSE * (ABNORMAL) Thyroid stimulating hormone with reflex to free t4 and free t3 (07/10/2024 1:12 PM EST) TSH 12.58(H) 0.40 - 4.00 mcIU/mL LAB CHEMISTRY METHOD 07/10/2024 5:37 PM EST [facility] Blood Venous blood specimen / Unknown Venipuncture / Unknown 07/10/2024 1:12 PM EST 07/10/2024 1:12 PM EST Masoud Khan MD LAB BLOOD ORDERABLE S Performing Organization Address City/[facility]/ZIP Co de Phone Number [facility] [address] [place] [address], [place] [phone] * Free thyroxine with reflex to free triiodothyronine (07/10/2024 1:12 PM EST) Free T4 1.05 0.70 - 1.80 ng/dL LAB CHEMISTRY METHOD 07/10/2024 6:03 PM EST [facility] Blood Venous blood specimen / Unknown Venipuncture / Unknown 07/10/2024 1:12 PM EST 07/10/2024 1:12 PM EST Masoud Khan MD LAB BLOOD ORDERABLE S Performing Organization Address City/[facility]/ZIP Co de Phone Number [facility] [address] [place] [address], [place] [phone] * (ABNORMAL) CBC auto differential (07/10/2024 1:12 PM EST) [facility] WBC 7.6 4.8 - 10.8 K/mcL LAB HEMETOLOGY METHOD 07/10/2024 4:33 PM [facility] RBC 4.10 3.80 - 4.80 M/mcL LAB HEMETOLOGY METHOD 07/10/2024 4:33 PM [facility] Hemoglobin 12.1 11.5 - 16.0 g/dL LAB HEMETOLOGY METHOD 07/10/2024 4:33 PM [facility] Hematocrit 39.0 35.0 - 47.0 % LAB HEMETOLOGY METHOD 07/10/2024 4:33 PM [facility] MCV 94.7 79.0 - 98.0 FL LAB HEMETOLOGY METHOD 07/10/2024 4:33 PM [facility] MCH 29.4 27.0 - 32.0 pcg LAB HEMETOLOGY METHOD 07/10/2024 4:33 PM [facility] MCHC 31.0(L) 32.0 - 37.0 g/dL LAB HEMETOLOGY METHOD 07/10/2024 4:33 PM [facility] RDW 14.1 11.0 - 15.0 % LAB HEMETOLOGY METHOD 07/10/2024 4:33 PM [facility] Platelets 292 130 - 400 K/mcL LAB HEMETOLOGY METHOD 07/10/2024 4:33 PM [facility] MPV 9.9 7.0 - 11.0 FL LAB HEMETOLOGY METHOD 07/10/2024 4:33 PM [facility] NRBC 0.0 <1.0 % LAB HEMETOLOGY METHOD 07/10/2024 4:33 PM [facility] NRBC Absolute 0.00 <0.10 K/mcL LAB HEMETOLOGY METHOD 07/10/2024 4:33 PM [facility] Neutrophils Relative 68.3 % LAB HEMETOLOGY METHOD 07/10/2024 4:33 PM [facility] Lymphocytes Relative 19.3 % LAB HEMETOLOGY METHOD 07/10/2024 4:33 PM [facility] Monocytes Relative 9.0 % LAB HEMETOLOGY METHOD 07/10/2024 4:33 PM [facility] Eosinophils Relative 2.0 % LAB HEMETOLOGY METHOD 07/10/2024 4:33 PM [facility] Basophils Relative 0.7 % LAB HEMETOLOGY METHOD 07/10/2024 4:33 PM [facility] Immature Granulocytes Relative 0.7 % LAB HEMETOLOGY METHOD 07/10/2024 4:33 PM [facility] Neutrophils Absolute 5.17 1.50 - 7.00 K/mcL LAB HEMETOLOGY METHOD 07/10/2024 4:33 PM [facility] Lymphocytes Absolute 1.46 1.00 - 5.00 K/mcL LAB HEMETOLOGY METHOD 07/10/2024 4:33 PM [facility] Monocytes Absolute 0.68 0.20 - 1.00 K/mcL LAB HEMETOLOGY METHOD 07/10/2024 4:33 PM [facility] Eosinophils Absolute 0.15 0.00 - 0.50 K/mcL LAB HEMETOLOGY METHOD 07/10/2024 4:33 PM [facility] Basophils Absolute 0.05 0.00 - 0.20 K/mcL LAB HEMETOLOGY METHOD 07/10/2024 4:33 PM [facility] Immature Granulocytes Absolute 0.05(H) 0.00 - 0.03 K/mcL LAB HEMETOLOGY METHOD 07/10/2024 4:33 PM [facility] Blood Venous blood specimen / Unknown Venipuncture / Unknown 07/10/2024 1:12 PM EST 07/10/2024 1:12 PM EST Masoud Khan MD LAB BLOOD ORDERABLE S [facility] [address] [place] [address], [place] [phone] * Triiodothyronine free (07/10/2024 1:12 PM EST) T3, Free 266 230 - 420 pcg/dL LAB CHEMISTRY METHOD 07/10/2024 6:28 PM EST [facility] Blood Venous blood specimen / Unknown Venipuncture / Unknown 07/10/2024 1:12 PM EST 07/10/2024 1:12 PM EST Masoud Khan MD LAB BLOOD ORDERABLE S Performing Organization Address City/[facility]/ZIP Co de Phone Number [facility] [address] [place] [address], [place] [phone] * Magnesium (07/10/2024 1:12 PM EST) Pathologist [facility] Magnesium 2.3 1.9 - 2.6 mg/dL LAB CHEMISTRY METHOD 07/10/2024 5:25 PM EST [facility] Blood Venous blood specimen / Unknown Venipuncture / Unknown 07/10/2024 1:12 PM EST 07/10/2024 1:12 PM EST Masoud Khan MD LAB BLOOD ORDERABLE S Performing Organization Address City/[facility]/ZIP Co de Phone Number [facility] [address] [place] [address], [place] [phone] * Basic metabolic panel (07/10/2024 1:12 PM EST) Sodium 139 133 - 145 mmol/L LAB CHEMISTRY METHOD 07/10/2024 5:25 PM EST [facility] Potassium 4.0 3.5 - 5.5 mmol/L LAB CHEMISTRY METHOD 07/10/2024 5:25 PM [facility] Chloride 104 96 - 110 mmol/L LAB CHEMISTRY METHOD 07/10/2024 5:25 PM [facility] CO2 32 21 - 32 mmol/L LAB CHEMISTRY METHOD 07/10/2024 5:25 PM [facility] Anion Gap 3 3 - 11 LAB CHEMISTRY METHOD 07/10/2024 5:25 PM [facility] Glucose 79 70 - 100 mg/dL LAB CHEMISTRY METHOD 07/10/2024 5:25 PM [facility] BUN 13 5 - 25 mg/dL LAB CHEMISTRY METHOD 07/10/2024 5:25 PM [facility] Creatinine 0.87 0.50 - 1.10 mg/dL LAB CHEMISTRY METHOD 07/10/2024 5:25 PM [facility] eGFR 73 >=60 mL/min/1. 73m2 LAB CHEMISTRY METHOD 07/10/2024 5:25 PM [facility] Comment:Calculation based on the??Chronic Kidney Disease Epidemiology Collaboration (CKD-EPI) equation refit??without adjustment for race. BUN/Creatinine Ratio 14.9 LAB CHEMISTRY METHOD 07/10/2024 5:25 PM [facility] Calcium 9.7 8.5 - 10.5 mg/dL LAB CHEMISTRY METHOD 07/10/2024 5:25 PM [facility] Blood Venous blood specimen / Unknown Venipuncture / Unknown 07/10/2024 1:12 PM EST 07/10/2024 1:12 PM EST Masoud Khan MD LAB BLOOD ORDERABLE S [facility] [address] [place] [address], * External Echo (06/25/2024 9:51 AM EST) Anatomical Region Laterality Modality Ultrasound Historical Provider MD BYRD ECHO PROCEDURE S * SCREENING MAMMOGRAPHY BI 2-VIEW BREAST INC CAD (05/28/2022 1:58 PM EDT) Anatomical Region Laterality Modality Radiographic Pebbles ging 04/25/2021 1:50 PM EDT Narrative 05/29/2022 1:05 PM EDT This is a summary report. The complete report is available in the patient's medical record. If you cannot access the medical record, please contact the sending organization for a detailed fax or copy. BILATERAL 2D and 3D DIGITAL SCREENING MAMMOGRAM History: Routine screening. ??No current breast complaints. ?? Comparison: Multiple priors dating back to 01/17/2014 Technique: Bilateral full-field digital 2D and 3D mammography was performed using standard CC and MLO projections, right breast exaggerated cc view CAD was used to evaluate this mammogram. Findings: Density: ??There are scattered areas of fibroglandular density-B RIGHT: No suspicious masses, groups of microcalcification or areas of architectural distortion identified. Stable typically benign parenchymal asymmetries LEFT: No suspicious masses, groups of microcalcifications or areas of architectural distortion identified. Stable typically benign parenchymal asymmetries IMPRESSION: : 1. ??No mammographic evidence of malignancy. BI-RADS Category 2 benign findings Recommendation: Routine annual screening mammography is recommended Procedure Note Eh Awad MD - 08/11/2022 This is a summary report. The complete report is available in thepatient's medical record. If you cannot access the medical record, pleasecontact the sending organization for a detailed fax or copy. BILATERAL 2D and 3D DIGITAL SCREENING MAMMOGRAM History: Routine screening. No current breast complaints. Comparison: Multiple priors dating back to 01/17/2014 Technique: Bilateral full-field digital 2D and 3D mammography wasperformed using standard CC and MLO projections, right breast exaggeratedcc view CAD was used to evaluate this mammogram. Findings: Density: There are scattered areas of fibroglandular density-B RIGHT: No suspicious masses, groups of microcalcification or areas ofarchitectural distortion identified. Stable typically benign parenchymalasymmetries LEFT: No suspicious masses, groups of microcalcifications or areas ofarchitectural distortion identified. Stable typically benign parenchymalasymmetries IMPRESSION: : 1. No mammographic evidence of malignancy. BI-RADS Category 2 benign findings Recommendation: Routine annual screening mammography is recommended Masoud Khan MD IMG XR PROCEDURES * (ABNORMAL) Lipid panel (10/31/2021) LDL/HDL Ratio 4 Triglycerides 200(A) 0 - 150 mg/dL Cholesterol 156 0 - 200 mg/dL HDL 45 40 mg/dL LDL Cholesterol 71 0 - 100 mg/dL Blood Venous blood specimen / Unknown Historical Provider LAB BLOOD ORDERAB LES * DXA BONE DENSITY STUDY 1+ SITS AXIAL SKEL (10/07/2021 11:30 AM EST) Anatomical Region Laterality Modality Bone Densitometr y 09/02/2021 1:37 PM EST Narrative 10/07/2021 5:21 PM EST Clinical history: menopausal/postmenopausal disorder Scans of the lumbar spine and hips were performed on a [employer] fan beam bone densitometer. ? Bone mineral density measurements and associated T and Z scores respectively are as follows: Lumbar Spine: L1-L4 BMD: 1.280 g/cm2 ? T-Score: 2.1 ? Z-Score: 3.9 Left Proximal Femur: Neck BMD: 0.869 g/cm2 ? T-Score: 0.2 ?? Z-Score: 1.5 Total BMD: 1.141 g/cm2 ? T-Score: 1.6 ?Z-Score: 2.5 Compared with standards for the young adult, lowest measured bone density places the patient in the W.H.O. normal range. IMPRESSION: IMPRESSION: Normal bone density. The NOF guidelines recommend that FDA approved medical therapies be considered in postmenopausal women and men age >50 years with a: i. Hip or vertebral (clinical or morphometric) fracture ii. T score of < -2.5 at the spine or hip iii. 10 year fracture probability by FRAX of >3% for hip fracture, or >20% for major osteoporotic fracture PLEASE NOTE: ?? W.H.O. classification is based on lowest measured density at the spine, femoral neck, or total hip.This classification has prognostic significance when applied to post menopausal women and older men. 1) ??The World Health Organization defines low BMD as follows: ?T-score ? Normal ? at or > -1 Osteopenia ? < -1 and ??> - 2.5 Osteoporosis ? at or < -2.5 without fractures Established osteoporosis ? < -2.5 with fractures Procedure Note Eh Pelayo MD - 08/11/2022 Clinical history: menopausal/postmenopausal disorder Scans of the lumbar spine and hips were performed on a [employer]fan beam bone densitometer. Bone mineral density measurements and associated T and Z scoresrespectively are as follows: Lumbar Spine: L1-L4 BMD: 1.280 g/cm2 T-Score: 2.1 Z-Score: 3.9 Left Proximal Femur: Neck BMD: 0.869 g/cm2 T-Score: 0.2 Z-Score: 1.5 Total BMD: 1.141 g/cm2 T-Score: 1.6 Z-Score: 2.5 Compared with standards for the young adult, lowest measured bone densityplaces the patient in the W.H.O. normal range. IMPRESSION: IMPRESSION: Normal bone density. The NOF guidelines recommend that FDA approved medical therapies beconsidered in postmenopausal women and men age >50 years with a: i. Hip or vertebral (clinical or morphometric) fracture ii. T score of < -2.5 at the spine or hip iii. 10 year fracture probability by FRAX of >3% for hip fracture, or >20%for major osteoporotic fracture PLEASE NOTE: W.H.O. classification is based on lowest measured density at the spine,femoral neck, or total hip.This classification has prognostic significance when applied to postmenopausal women and older men. 1) The World Health Organization defines low BMD as follows: T-score Normal at or > -1 Osteopenia < -1 and > -2.5 Osteoporosis at or < -2.5 withoutfractures Established osteoporosis < -2.5 with fractures Tano RIBEIRO IMG DXA PROCEDURES * Colonoscopy (05/30/2019) [facility] Colonoscopy No Interpretation , Abstracted Anatomical Region Laterality Modality Other Historical Provider MD SUSHILA VALIENTE E * Hepatitis C Screening (06/27/2013) [facility] Hepatitis C Screening Abstracted Historical Provider MD SUSHILA VALIENTE E from Last 3 Months or Most Recently Relevant to Health Maintenance Care Teams Hi Lo Driver Relationship Specialty Start Date End Date Masoud Khan MD [address] [place] [address] PCP - General Internal Medicine 10/31/21
--- OUTSIDE RECORDS SUMMARY | 2024-09-22 20:40 | XMS_ITS | Encounter Summary ---
Author Organization [facility] Address [address] [place] [address] Care Team Providers Care Ring Conductor Name Role Phone Masoud Khan MD Primary Care Provider [phone] Reason for Visit * Reason Onset Date Comments d/c amiodarone 09/07/2024 Encounter Details Date Type Department Care Team (Late st Contact Info) Description 09/07/2024 Telephone [facility] - [facility] [address] [phone] Satnam Garcia NP [address] [place], [place] [phone] d/c amiodarone Social History Tobacco Use Types Packs/Day Years [...] as of this encounter Progress Notes * Ridge Headley MA - 09/14/2024 4:11 PM ESTAddended by: RIDGE HEADLEY on: 09/14/2024 04:11 PM Modules accepted: Orders * Ridge Headley MA - 09/14/2024 4:04 PM EST I called and spoke to the daughter Glo and she will be sure that she does not take the amiodarone anymore. I called and spoke to Brittany at the pharmacy and they will d/c the medication on theirend. The daughter asked that she be called for appt booking because the patient has a history of cancelling or no showing appts and she is trying to help her get to all of her appts. I have updated her contact information she is on her contact list also * Ridge Headley MA - 09/08/2024 8:26 AM EST I have left a voicemail asking the patient to call back to go over recommendations * Satnam Garcia NP - 09/07/2024 4:23 PM EST Can we please reach out the patient let her know that I spoke with Dr. Fortune, the patient is stillin an arrhythmia underlying on her EKG. At this point does not seem the amiodarone is helping her stay in sinus rhythm, and the side effect profile is robust. I think that she should discontinue the amiodarone at this point. documented in this encounter Plan of Treatment Upcoming Encounters Date Type Department Care Team (Late st Contact Info) Description 09/25/2024 11:15 AM EST Office Visit Adult Medicine [address] [phone] Deann Watkins PA [address] [place] [address] 10/17/2024 3:45 PM EST Office Visit [address] [phone] Masoud Khan MD [address] [place] [address] 10/30/2024 9:10 AM EDT Office Visit [facility] - [facility] [address] [facility] [address] [place] [phone] Satnam Garcia NP [address] [place] [address] documented as of this encounter Visit Diagnoses Not on filedocumented in this encounter Discontinued Medications Medication Sig Discontinue Reason Start Date End Da te amiodarone (PACERONE) 200 mg tablet Take 1 tablet (200 mg total) by mouth 1 (one) time each day. Prescriber Discontinued 06/29/2024 09/14/2024 documented as of this encounter Care Teams Ring Conductor Relationship Specialty Start Date End Date Masoud Khan MD [address] [place] [address] PCP - General Internal Medicine 10/31/21 documented as of this encounter
--- OUTSIDE RECORDS SUMMARY | 2024-09-22 20:40 | XMS_ITS | Encounter Summary ---
Author Organization [facility] Address [address] [place] [address] Care Team Providers Care Berry Planter Name Role Phone Masoud Khan MD Primary Care Provider [phone] Reason for Visit * Reason Comments Hospital Follow-up * Consultation (Routine) - Closed Specialty Diagnoses / Procedures Referred By Ventura gale Referred To Contact Cardiology Diagnoses Hospital discharge follow-up Chronic respiratory failure with hypoxia (CMS/HCC) MARGOTH on CPAP Moderate persistent asthma without complication Chronic diastolic (congestive) heart failure (CMS/HCC) Paroxysmal atrial fibrillation (CMS/HCC) Coronary artery disease involving gakona coronary artery of gakona heart without angina pectoris Acquired hypothyroidism Essential hypertension, benign Schizoaffective disorder, unspecified type (CMS/HCC) Masoud Khan MD [address] [place] [id number] [facility] [address] [place] [address] Referral ID Status Reason Start Date Expiration Date V isits Requested Visits Authorized [id number] Closed Specialty Services Required 07/05/2024 07/05/2025 1 1 Encounter Details Date Type Department Care Team (Late st Contact Info) Description 09/04/2024 1:10 PM EST Office Visit [facility] - [address] [place] [id number] Satnam Garcia NP [address] [place] [address] Hospital discharge follow-up; Chronic diastolic (congestive) heart failure (CMS/HCC); Paroxysmal atrial fibrillation (CMS/HCC); Essential hypertension, benign; MARGOTH on CPAP; Coronary artery disease involving gakona coronary artery of gakona heart without angina pectoris; Chronic respiratory failure with hypoxia (CMS/HCC); Moderate persistent asthma without complication; Acquired hypothyroidism; Schizoaffective disorder, unspecified type (CMS/HCC) Social History Tobacco Use Types Packs/Day Years [...] on file documented as of this encounter Last Filed Vital Signs Vital Sign Reading Time Taken Comments Blood Pressure 142/80 09/04/2024 1:11 PM EST Pulse 64 09/04/2024 1:11 PM EST Temperature - - Respiratory Rate - - Oxygen Saturation 95% 09/04/2024 1:11 PM EST 2L of oxygen Inhaled Oxygen Concentration - - Weight 137 kg (301 lb) 09/04/2024 1:11 PM EST Height 160 cm (5' 3 ) 09/04/2024 1:11 PM EST Body Mass Index 53.32 09/04/2024 1:11 PM EST documented in this encounter Progress Notes * Satnam Garcia NP - 09/04/2024 1:10 PM ESTAssociated Problem(s): Chronic diastolic (congestive) heart failure (CMS/HCC) Patient had recovery of ejection fraction. Continue on beta-teresa, GLT 2 inhibitor. Patient couldpotentially benefit from initiation of MARCE/ARB or Entresto. Can look to initiate at next appointment. Orders: Ambulatory referral to Cardiology B-type natriuretic peptide; Future Basic metabolic panel; Future * Satnam Garcia NP - 09/04/2024 1:10 PM ESTAssociated Problem(s): Paroxysmal atrial fibrillation (CMS/HCC) Patient is in A-fib today V paced. Patient does not seem to be perceptive of when she is in atrial fibrillation as she reports she does not have any symptoms. Will look to discontinue the amiodarone.On rate control with metoprolol, and utilizing Xarelto. Patient denies any abnormal bleeding. She has a [id number]-EAHe score of 5, and should remain anticoagulated. Orders: Ambulatory referral to Cardiology ECG 12 lead Basic metabolic panel; Future * Satnam Garcia NP - 09/04/2024 1:10 PM ESTAssociated Problem(s): Essential hypertension, benign Patient should check blood pressure measurements at home. I will not change medication as she is slightly hypertensive today, but states that she is nervous. I am going to have her take blood pressure measurements at home record them and get back to the office in 10 days. Orders: Ambulatory referral to Cardiology Basic metabolic panel; Future * Satnam Garcia NP - 09/04/2024 1:10 PM EST Images from the original note were not included. [facility] PRIMARY TANK SETTER HELPER: Carrol Fortune MD PCP: Masoud Khan MD HPI: Shahla Granados is a 68 y.o. old female here for hospital discharge follow-up. We see her for the following cardiac problems: 1. A-fib-on Xarelto for CVS prophylaxis and metoprolol for rate control. 2. HFpEF 3. Hypertension 4. Hyperlipidemia 5. Sick sinus syndrome-has implanted [place] device. She also has a past medical history significant for schizoaffective disorder, COPD, sleep apnea-on CPAP, anemia, hypothyroidism, obesity. On 06/29/2024 patient presented to the emergency room with increased dyspnea, concern for COPD exacerbation versus acute versus chronic HFrEF. Was complicated by intermittent episodes of A-fib with RVR. Patient was given amiodarone converted to sinus rhythm. Patient also had COPD exacerbation duringthis. During discharge was given instructions to not exceed 2000 mL of fluid, low-salt diet, DC with furosemide, metoprolol and Farxiga. Was also instructed to be on 2 L of oxygen continuously. Reportedly the echo during this hospitalization showed left ventricular ejection fraction was 65 to 70%, with no regional wall motion abnormalities. Grade 2, moderate diastolic dysfunction with pseudo normal LV filling pattern and increased LA pressure. The patient presents today for a hospital discharge follow-up. She has switched to PVC a from [facility]. Has been taking her medications as directed from discharge. Reports that she is trying to work on her diet including her salt consumption. She reports that she has dyspnea on exertion however she has that at baseline. Does use 2 L of oxygen as needed and through the night. Denies chest pain, pressure, palpitations, edema, syncope/presyncope, PND, or orthopnea. ACTIVE MEDICATIONS: Outpatient Medications Marked as Taking for the 09/04/24 encounter (Office Visit) with Satnam Garcia NP Medication Sig Dispense Refill albuterol HFA (PROAIR HFA ; PROVENTIL HFA ; VENTOLIN HFA) 90 mcg/actuation inhaler Inhale 2 Puffs into the lungs every 4 hours as needed. amiodarone (PACERONE) 200 mg tablet Take 1 tablet (200 mg total) by mouth 1 (one) time each day. ARIPiprazole (ABILIFY) 20 mg tablet Take 1 tablet (20 mg total) by mouth 1 (one) time each day. atorvastatin (LIPITOR) 40 mg tablet Take 1 tablet (40 mg total) by mouth 1 (one) time each day. 90 tablet 1 benztropine (COGENTIN) 1 mg tablet Take 1 tablet (1 mg total) by mouth 1 (one) time each day. empagliflozin (JARDIANCE) 10 mg tablet Take 1 tablet (10 mg total) by mouth 1 (one) time each day in the morning. 90 tablet 1 fluticasone furoate-vilanteroL (Breo Ellipta) 100-25 mcg/dose inhaler Inhale 1 puff by mouth 1 (one) time each day. 1 each 4 furosemide (LASIX) 20 mg tablet Take 1 tablet (20 mg total) by mouth 1 (one) time each day. 90 tablet 1 levothyroxine (SYNTHROID, LEVOTHROID) 112 mcg tablet Take 1 tablet (112 mcg total) by mouth See administration instructions. 1 tablet daily from Wednesday to Wednesday and 1.5 tablets on Wednesday 96 tablet1 magnesium oxide (MAG-OX) 400 mg (241.3 elemental magnesium) tablet Take 1 Tablet by mouth daily. metoprolol tartrate (LOPRESSOR) 100 mg tablet Take 1 tablet (100 mg total) by mouth 2 (two) times aday. nystatin (MYCOSTATIN) cream Apply small amount twice a day to affected area paliperidone palmitate (Invega Sustenna) 234 mg/1.5 mL syringe Inject 1.5 mL (234 mg total) into the shoulder, thigh, or buttocks every 30 (thirty) days. rivaroxaban (Xarelto) 20 mg tablet Take 1 Tablet by mouth daily. sertraline (ZOLOFT) 100 mg tablet Take 1 Tab by mouth daily. [DISCONTINUED] metoprolol succinate (TOPROL-XL) 100 mg 24 hr tablet Take 1 tablet (100 mg total) bymouth 1 (one) time each day. Do not crush or chew. PAST MEDICAL HISTORY: Patient Active Problem List Diagnosis Anxiety Asthma Atrial flutter (CMS/HCC) CAD (coronary artery disease) Depression Essential hypertension, benign Hypercholesterolemia Hypothyroid MARGOTH on CPAP Osteoarthritis Osteoarthritis of left knee Overactive bladder Paroxysmal atrial fibrillation (CMS/HCC) Prediabetes Respiratory failure, unspecified with hypoxia (CMS/HCC) Schizoaffective disorder (CMS/HCC) Sick sinus syndrome (CMS/HCC) Morbid obesity with BMI of 50.0-59.9, adult (CMS/HCC) Chronic diastolic (congestive) heart failure (CMS/HCC) ALLERGIES: Allergies Allergen Reactions Other Seasonal Allergies SOCIAL HISTORY: Social History Tobacco Use Smoking status: Former Current packs/day: 0.00 Types: Cigarettes Quit date: 08/23/1989 Years since quittin.0 Smokeless tobacco: Never Tobacco comments: QUIT IN HER 30'S Substance Use Topics Alcohol use: No PHYSICAL EXAM: Vitals: 09/04/24 1311 BP: (!) 142/80 BP Location: Right arm Patient Position: Sitting BP Cuff Size: Large adult Pulse: 64 SpO2: 95% Weight: 137 kg (301 lb) Height: 1.6 m (63 ) Physical Exam Constitutional: General: She is not in acute distress. Appearance: Normal appearance. HENT: Head: Normocephalic and atraumatic. Right Ear: External ear normal. Left Ear: External ear normal. Nose: Nose normal. Eyes: Conjunctiva/sclera: Conjunctivae normal. Neck: Vascular: No carotid bruit. Cardiovascular: Rate and Rhythm: Normal rate and regular rhythm. Pulses: Normal pulses. Heart sounds: Normal heart sounds. No murmur heard. No friction rub. No gallop. Pulmonary: Effort: Pulmonary effort is normal. Breath sounds: Normal breath sounds. No wheezing, rhonchi or rales. Abdominal: General: There is no distension. Musculoskeletal: Cervical back: Neck supple. Right lower leg: No edema. Left lower leg: No edema. Skin: General: Skin is warm and dry. Neurological: General: No focal deficit present. Mental Status: She is alert and oriented to person, place, and time. Mental status is at baseline. Psychiatric: Mood and Affect: Mood normal. Thought Content: Thought content normal. EKG: Encounter Date: 09/04/24 ECG 12 lead Result Value Ventricular Rate ECG 64 Atrial Rate 43 QRS Duration 200 Q-T Interval 530 QTc 546 R Alg[place] -31 T [place] 109 ECG Interpretation Ventricular-paced rhythm with frequent Premature ventricular complexes Abnormal ECG When compared with ECG of 16-JUN-2019 14:10, Electronic ventricular pacemaker has replaced Sinus rhythm *Note: Due to a large number of results and/or encounters for the requested time period, some results have not been displayed. A complete set of results can be found in Results Review. TESTING: ASSESSMENT/PLAN: Assessment & Plan Hospital discharge follow-up Orders: Ambulatory referral to Cardiology Chronic diastolic (congestive) heart failure (CMS/HCC) Patient had recovery of ejection fraction. Continue on beta-teresa, GLT 2 inhibitor. Patient couldpotentially benefit from initiation of MARCE/ARB or Entresto. Can look to initiate at next appointment. Orders: Ambulatory referral to Cardiology B-type natriuretic peptide; Future Basic metabolic panel; Future Paroxysmal atrial fibrillation (CMS/HCC) Patient is in A-fib today V paced. Patient does not seem to be perceptive of when she is in atrial fibrillation as she reports she does not have any symptoms. Will look to discontinue the amiodarone.On rate control with metoprolol, and utilizing Xarelto. Patient denies any abnormal bleeding. She has a [id number] score of 5, and should remain anticoagulated. Orders: Ambulatory referral to Cardiology ECG 12 lead Basic metabolic panel; Future Essential hypertension, benign Patient should check blood pressure measurements at home. I will not change medication as she is slightly hypertensive today, but states that she is nervous. I am going to have her take blood pressure measurements at home record them and get back to the office in 10 days. Orders: Ambulatory referral to Cardiology Basic metabolic panel; Future Thank you for allowing us to participate in the care of this patient. The patient will follow up in2 months, sooner PRN. As per AHA guidelines and previously established plan of care by Dr. Carrol Fortune MD, we discussedthe following today: 1. Hospital discharge follow-up 2. Chronic diastolic (congestive) heart failure (CMS/HCC) 3. Paroxysmal atrial fibrillation (CMS/HCC) 4. Essential hypertension, benign 5. MARGOTH on CPAP 6. Coronary artery disease involving gakona coronary artery of gakona heart without angina pectoris 7. Chronic respiratory failure with hypoxia (CMS/HCC) 8. Moderate persistent asthma without complication 9. Acquired hypothyroidism 10. Schizoaffective disorder, unspecified type (CMS/HCC) [facility] documented in this encounter Plan of Treatment Upcoming Encounters Date Type Department Care Team (Late st Contact Info) Description 09/25/2024 11:15 AM EST Office Visit Adult Medicine [address] [phone] Deann Watkins PA [address] [place] [address] 10/17/2024 3:45 PM EST Office Visit Adult Medicine [address] [phone] Masoud Khan MD [address] [place] [address] 10/30/2024 9:10 AM EDT Office Visit [facility] - [address] [facility] [address] [place] [phone] Satnam Garcia NP [address] [place] [address] Scheduled Orders Name Type Priority Associated Diagnoses Orde r Schedule B-type natriuretic peptide Lab Routine Chronic diastolic (congestive) heart failure (CMS/HCC) 1 Occurrences starting 09/04/2024 until 09/04/2025 Basic metabolic panel Lab Routine Chronic diastolic (congestive) heart failure (CMS/HCC) Paroxysmal atrial fibrillation (CMS/HCC) Essential hypertension, benign Expected: 09/04/2024, Expires: 09/04/2025 documented as of this encounter Procedures Procedure Name Priority Date/Time Associated Diagnosis Comments ECG 12-LEAD Routine 09/04/2024 4:49 PM EST Paroxysmal atrial fibrillation (CMS/HCC) documented in this encounter Results * ECG 12 lead (09/04/2024 4:49 PM EST) Ventricular Rate ECG 64 BPM GEMUSE Atrial Rate 43 BPM GEMUSE QRS Duration 200 ms GEMUSE Q-T Interval 530 ms GEMUSE QTc 546 ms GEMUSE R Alg[place] -31 degrees GEMUSE T [place] 109 degrees GEMUSE ECG Interpretation Ventricular-pa jose miguel rhythm with frequent Premature ventricular complexes Abnormal ECG When compared with ECG of 16-JUN-2019 14:10, Electronic ventricular pacemaker has replaced Sinus rhythm Confirmed by Khris ENNIS JOHN ([id number]) on 09/04/2024 10:30:26 PM GEMUSE 09/04/2024 1:10 PM EST 09/04/2024 10:30 PM EST Satnam Garcia NP ECG ORDERABLES GEMUSE documented in this encounter Visit Diagnoses Diagnosis Hospital discharge follow-up Other follow-up examination Chronic diastolic (congestive) heart failure (CMS/HCC) Paroxysmal atrial fibrillation (CMS/HCC) Atrial fibrillation Essential hypertension, benign MARGOTH on CPAP Coronary artery disease involving gakona coronary artery of gakona heart without angina pectoris Chronic respiratory failure with hypoxia (CMS/HCC) Moderate persistent asthma without complication Acquired hypothyroidism Unspecified hypothyroidism Schizoaffective disorder, unspecified type (CMS/HCC) documented in this encounter Discontinued Medications Medication Sig Discontinue Reason Start Date End Da te albuterol 2.5 mg /3 mL (0.083 %) nebulizer solutionIndications:Hos pital discharge follow-up,Chronic respiratory failure with hypoxia (CMS/HCC),MARGOTH on CPAP,Moderate persistent asthma without complication,Chronic diastolic (congestive) heart failure (CMS/HCC),Paroxysmal atrial fibrillation (CMS/HCC),Coronary artery disease involving gakona coronary artery of gakona heart without angina pectoris,Acquired hypothyroidism,Essentia l hypertension, benign,Schizoaffective disorder, unspecified type (CMS/HCC) Take 3 mL (2.5 mg total) by nebulization 4 (four) times a day if needed for wheezing or shortness of breath. Prescriber Discontinued 08/28/2024 09/04/2024 ARIPiprazole (ABILIFY) 15 mg tablet Take 1 Tablet by mouth daily. Duplicate order 09/04/2024 fluticasone propionate (FLONASE) 50 mcg/actuation nasal spray SPRAY ONCE INTO EACH NOSTRIL 2 (two) times a day Prescriber Discontinued 07/04/2021 09/04/2024 sertraline (ZOLOFT) 50 mg tablet Take 50 mg by mouth daily. Duplicate order 09/04/2024 nystatin (MYCOSTATIN) 100,000 unit/gram powder Apply topically 3 times per day until healed Duplicate order 10/18/2023 09/04/2024 metoprolol succinate (TOPROL-XL) 100 mg 24 hr tablet Take 1 tablet (100 mg total) by mouth 1 (one) time each day. Do not crush or chew. Duplicate order 09/04/2024 documented as of this encounter Historical Medications * This list may reflect changes made after this encounter. Medication Sig Dispensed Refills Start Date End Date metoprolol tartrate (LOPRESSOR) 100 mg tablet Take 1 tablet (100 mg total) by mouth 2 (two) times a day. ARIPiprazole (ABILIFY) 20 mg tablet Take 1 tablet (20 mg total) by mouth 1 (one) time each day. added in this encounter Orders Outpatient Referral Count Last Ordered Date Fir st Ordered Date AMB REFERRAL TO CARDIOLOGY 1 09/04/2024 documented in this encounter Care Teams Berry Planter Relationship Specialty Start Date End Date Masoud Khan MD [address] [place] [address] PCP - General Internal Medicine 10/31/21 documented as of this encounter
[2024-09-22] MEDS: Montelukast Sodium 10 MG TABLET PO (21:02)
[2024-09-22] MEDS: Oseltamivir Phosphate 75 MG CAPSULE PO (21:02)
[2024-09-22] MEDS: Benztropine Mesylate 1 MG TABLET PO (21:02)
[2024-09-22] MEDS: Furosemide 20 MG TABLET PO (21:22)
[2024-09-22] MEDS: levalbuterol HCL 1.25 MG/3 ML VIAL.NEB INHALE (22:36)
[2024-09-23] VITALS (23 sets, daily range): BP systolic 112–142; BP diastolic 53–81; PULSE 58–143; RESP 18–28; TEMP 35.9–37.1; O2SAT 90–98; BMI 50.4
[2024-09-23 05:26] LABS: Anion Gap 12 (12-20); B Type Natriuretic Peptide 420 pg/mL (<100); Blood Urea Nitrogen 14 mg/dL (9-16); Calcium 9.5 mg/dL (8.4-10.2); Carbon Dioxide 26 mmol/L (22-29); Chloride 110 mmol/L (96-108); Creatinine Clr Calc Pharmacy 95.2; Estimated Glomerular Filt Rate > 60; Glucose Random 125 mg/dL (60-115); Magnesium 2.3 mg/dL (1.6-2.6); Sodium 144 mmol/L (135-145)
[2024-09-23] MEDS: Levothyroxine Sodium 112 MCG TABLET PO (05:48)
[2024-09-23] MEDS: guaiFENesin DM 200/20/10 ML 10 ML SYRUP PO (06:03)
[2024-09-23] MEDS: levalbuterol HCL 1.25 MG/3 ML VIAL.NEB INHALE ×4 (08:39→18:56)
[2024-09-23] MEDS: methylPREDNISolone Sod Succ 40 MG/ML VIAL IVPUSH ×2 (10:18→20:59)
[2024-09-23] MEDS: Magnesium Oxide 400 MG TABLET PO (10:18)
[2024-09-23] MEDS: Amiodarone HCL 200 MG TABLET PO (10:18)
[2024-09-23] MEDS: Furosemide 20 MG TABLET PO ×2 (10:18→18:03)
[2024-09-23] MEDS: 0.9 % Sodium Chloride Flush 3 ML SYRINGE IVFLUSH ×3 (10:18→20:58)
[2024-09-23] MEDS: Benztropine Mesylate 1 MG TABLET PO ×2 (10:18→20:56)
[2024-09-23] MEDS: Sertraline HCL 25 MG TABLET PO (10:18)
[2024-09-23] MEDS: Atorvastatin Calcium 40 MG TABLET PO (10:19)
[2024-09-23] MEDS: Sertraline HCL 100 MG TABLET PO (10:19)
[2024-09-23] MEDS: ARIPiprazole 20 MG TABLET PO (10:19)
[2024-09-23] MEDS: Metoprolol Tartrate 100 MG TABLET PO ×2 (10:19→20:56)
[2024-09-23] MEDS: Multivitamin TABLET 1 TAB PO (10:19)
[2024-09-23] MEDS: Empagliflozin 10 MG TABLET PO (10:19)
[2024-09-23] MEDS: Oseltamivir Phosphate 75 MG CAPSULE PO ×2 (10:19→20:56)
--- NOTE | 2024-09-23 10:29 | P.PNIM_ITS ---
Subjective Subjective Date of Service: 09/23/24 Interval History: seen and examined feeling better, less short of breath denies cp or palp Review of Systems Negative except HPI/interval history. Physical Exam 2 Vital Signs: Vital Signs: Last Vital Signs Temp 97.1 F 09/23/24 10:18 Pulse 60 09/23/24 10:18 Resp 18 09/23/24 10:18 BP 129/65 09/23/24 10:18 Pulse Ox 97 09/23/24 10:18 O2 Del Method Nasal Cannula 09/23/24 10:18 O2 Flow Rate 2 09/23/24 10:18 Oxygen Flow Rate 2 09/22/24 13:08 BMI result Body Mass Index 50.4 Const: Other: General - no acute distress, appears comfortable Cardiovascular - was in sinus this AM, later went back into a. fib Lungs - normal respiratory effort, clear to auscultation bilaterally, no wheezing Abdomen - soft, nontender, no rebound or guarding Extremities - no edema bilaterally Neuro - awake and alert, no focal deficits Objective Data Active Medications Acetaminophen (Acetaminophen 325 Mg Tablet) 650 mg PO Q6H PRN PRN Reason: Pain, Mild 1-3,fever,headache Amiodarone HCl (Amiodarone Hcl 200 Mg Tablet) 200 mg PO DAILY [facility] Last Admin: 09/23/24 10:18 Dose: 200 mg Documented By: ADELA Aripiprazole (Aripiprazole 20 Mg Tablet) 20 mg PO DAILY [facility] Last Admin: 09/23/24 10:19 Dose: 20 mg Documented By: ADELA Atorvastatin Calcium (Atorvastatin Calcium 40 Mg Tablet) 40 mg PO DAILY [facility] Last Admin: 09/23/24 10:19 Dose: 40 mg Documented By: ADELA Benztropine Mesylate (Benztropine Mesylate 1 Mg Tablet) 1 mg PO BID [facility] Last Admin: 09/23/24 10:18 Dose: 1 mg Documented By: ADELA Calcium Carbonate (Calcium Carbonate 750 Mg Tab.Chew) 750 mg PO Q4H PRN PRN Reason: Heartburn Diltiazem HCl (Diltiazem Hcl Cd 240 Mg Cap.Er.Deg) 240 mg PO DAILY [facility]; Protocol Last Admin: 09/23/24 06:26 Dose: Not Given Documented By: ROMAIN Non-Admin Reason: Physician Held Med Empagliflozin (Empagliflozin 10 Mg Tablet) 10 mg PO DAILY [facility] Last Admin: 09/23/24 10:19 Dose: 10 mg Documented By: ADELA Furosemide (Furosemide 20 Mg Tablet) 20 mg PO BID@0900,1800 [facility]; Protocol Last Admin: 09/23/24 10:18 Dose: 20 mg Documented By: ADELA Guaifenesin/Dextromethorphan (Guaifenesin Dm 200/20/10 Ml 10 Ml Syrup) 10 ml PO Q4H PRN PRN Reason: Cough Last Admin: 09/23/24 06:03 Dose: 10 ml Documented By: ROMAIN Levalbuterol HCl (Levalbuterol Hcl 1.25 Mg/3 Ml Vial.Neb) 1.25 mg INHALE RQ4H WHILE AWAKE [facility] Last Admin: 09/23/24 08:39 Dose: 1.25 mg Documented By: YVONNE Levalbuterol HCl (Levalbuterol Hcl 1.25 Mg/3 Ml Vial.Neb) 1.25 mg INHALE Q4H PRN PRN Reason: Shortness of Breath/Wheezing Last Admin: 09/22/24 22:36 Dose: 1.25 mg Documented By: JERMAN Levothyroxine Sodium (Levothyroxine Sodium 112 Mcg Tablet) 112 mcg PO MOTUWETHFRSA@0600 [facility] Last Admin: 09/23/24 05:48 Dose: 112 mcg Documented By: ROMAIN Levothyroxine Sodium (Levothyroxine Sodium 112 Mcg Tablet) 168 mcg PO ALLRED@0600 [facility] Magnesium Hydroxide (Milk Of Magnesia 30 Ml Oral.Susp) 30 ml PO DAILY PRN PRN Reason: Constipation Magnesium Oxide (Magnesium Oxide 400 Mg Tablet) 400 mg PO DAILY [facility] Last Admin: 09/23/24 10:18 Dose: 400 mg Documented By: ADELA Melatonin (Melatonin 3 Mg Tablet) 6 mg PO BEDTIME PRN PRN Reason: Insomnia Methylprednisolone Sodium Succinate (Methylprednisolone Sod Succ 40 Mg/Ml Vial) 40 mg IVPUSH Q12H [facility] Last Admin: 09/23/24 10:18 Dose: 40 mg Documented By: ADELA Metoprolol Tartrate (Metoprolol Tartrate 100 Mg Tablet) 100 mg PO BID [facility]; Protocol Last Admin: 09/23/24 10:19 Dose: 100 mg Documented By: ADELA Montelukast Sodium (Montelukast Sodium 10 Mg Tablet) 10 mg PO BEDTIME [facility] Last Admin: 09/22/24 21:02 Dose: 10 mg Documented By: ROMAIN Multivitamins/Vitamin C (Multivitamin Tablet) 1 tab PO DAILY [facility] Last Admin: 09/23/24 10:19 Dose: 1 tab Documented By: ADELA Ondansetron HCl (Ondansetron Hcl 4 Mg/2 Ml Vial) 4 mg IVPUSH Q8H PRN PRN Reason: Nausea and Vomiting Oseltamivir Phosphate (Oseltamivir Phosphate 75 Mg Capsule) 75 mg PO Q12H [facility] Stop: 09/27/24 09:01 Last Admin: 09/23/24 10:19 Dose: 75 mg Documented By: ADELA Rivaroxaban (Rivaroxaban 20 Mg Tablet) 20 mg PO BEDTIME [facility] Last Admin: 09/22/24 21:01 Dose: 20 mg Documented By: ROMAIN Sertraline HCl (Sertraline Hcl 25 Mg Tablet) 25 mg PO DAILY [facility] Last Admin: 09/23/24 10:18 Dose: 25 mg Documented By: ADELA Sertraline HCl (Sertraline Hcl 100 Mg Tablet) 100 mg PO DAILY [facility] Last Admin: 09/23/24 10:19 Dose: 100 mg Documented By: ADELA Sodium Chloride (0.9 % Sodium Chloride Flush 3 Ml Syringe) [facility] Last Admin: 09/23/24 10:18 Dose: 3 ml Documented By: ADELA Labs 09/22/24 14:08 09/23/24 04:31 Labs: Laboratory Results - last 24 hr 09/22/24 09/23/24 14:08 04:31 MCV 93.7 MCH 30.2 MCHC 32.2 RDW 15.0 Plt Count 174 D MPV 9.4 Immature Gran % (Auto) 0.4 Neut % (Auto) 67.6 Lymph % (Auto) 23.4 [place] % (Auto) 7.1 Eos % (Auto) 1.2 Baso % (Auto) 0.3 Lymph # (Auto) 1.6 [place] # (Auto) 0.5 Eos # (Auto) 0.1 Baso # (Auto) 0.0 Abs Immat Gran (auto) 0.03 Absolute Neuts (auto) 4.7 Absolute Nucleated RBC 0.000 Nucleated RBC % (auto) 0.0 Hold Purple Top SEE NOTE PT 14.8 H INR 1.3 H Anion Gap 15 12 Estim Creat Clear Calc 87.0 95.2 Estimated GFR > 60 > 60 Random Glucose 130 H 125 H Calcium 9.4 9.5 Magnesium 2.3 Total Bilirubin 0.4 AST 24 ALT 22 Alkaline Phosphatase 80 Troponin I High Sens 3.9 B-Natriuretic Peptide 286 H 420 H Total Protein 7.1 Albumin 3.5 COVID-19 (VIC) Negative COVID-19 Clin Com See Note Influenza Type A ([facility]) Positive A Influenza Type B ([facility]) Negative Influenza A & B Note See Note Assessment and Plan (1) Atrial fibrillation with rapid ventricular response: Status: Acute Plan Pt is a 69-year-old female with a PMH significant for?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 Pt will be admitted to the hospital for treatment and further evaluation of acute asthma/COPD exacerbation, CHF exacerbation, and AFib with RVR in the setting of acute influenza a infection. Acute asthma/COPD overlap syndrome exacerbation in the setting of acute influenza type a infection continue steroids, tamiflu, baseline 2L o2, updrafts reports improvement today Acute HFpEF exacerbation continue IV lasix, daily weights, i/o consider cardio if not improving AFib with RVR converted to sinus but back in a fib with rates around 100 continue current meds consider cardio if not improved HLD Continue statin Hypothyroidism Continue levothyroxine Mood disorder Continue aripiprazole and sertraline Obesity class 3 Encourage weight loss Full Code DVT pptx - xarelto Quality Stroke Does the patient have a stroke diagnosis?: No VTE Prior VTE?: No VTE Risk Level:: Medical - moderate - high VTE Device Contraindication: Treatment Not Indicated VTE Drug Contraindication: N/A - Med Ordered
--- NOTE | 2024-09-23 17:13 | PM.EVENT ---
Event Note Date of Service: 09/23/24 Event Note: Called to see patient for AFib with RVR. Was previously on Cardizem drip. Also complains of extreme anxiety. We will restart drip and give Ativan 1 mg x 1. Exam showing diminished breath sounds at the bases with scattered expiratory wheezes without crackles. Further plans based on clinical course Time Spent With Patient Time: Total time managing care of this patient today ____ minutes.
[2024-09-23] MEDS: LORazepam 1 MG TABLET PO (18:04)
[2024-09-23] MEDS: Rivaroxaban 20 MG TABLET PO (20:56)
[2024-09-23] MEDS: Montelukast Sodium 10 MG TABLET PO (20:56)
[2024-09-23] MEDS: Acetaminophen 325 MG TABLET 650 MG PO (20:57)
[2024-09-23] MEDS: dilTIAZem HCL 125 MG in 0.9 % Sodium Chloride 100 ML 10 MG IVCONT (22:17)
--- NOTE | 2024-09-23 22:20 | PC.NURSE ---
Pt had Diltazem drip started at 10mg/hr per protocol. See flowsheets for current vitals
--- NOTE | 2024-09-23 23:30 | PC.NURSE ---
Pts HR BETWEEN 115-136, maxed on diltiazem drip. MD made aware and stated to continue to monitor.
[2024-09-24] VITALS (12 sets, daily range): BP systolic 101–131; BP diastolic 56–78; PULSE 54–120; RESP 12–20; TEMP 35.8–36.5; O2SAT 94–96; BMI 49.8
--- NOTE | 2024-09-24 00:24 | PC.NURSE ---
Pt HR sustaining between 62-71 with pwaves and consistant pacer spikes. MD bronze chaser notified and stated to wean drip to 5mg/hr. Latest BP is 119/78. Med changed reflected in MAR
[2024-09-24] MEDS: Loperamide HCl 2 MG CAPSULE PO (04:25)
[2024-09-24] MEDS: Levothyroxine Sodium 112 MCG TABLET 168 MCG PO (04:25)
[2024-09-24] MEDS: guaiFENesin DM 200/20/10 ML 10 ML SYRUP PO ×2 (06:55→20:49)
[2024-09-24 06:56] LABS: Anion Gap 13 (12-20); Blood Urea Nitrogen 18 mg/dL (9-16); Calcium 8.8 mg/dL (8.4-10.2); Carbon Dioxide 23 mmol/L (22-29); Chloride 109 mmol/L (96-108); Estimated Glomerular Filt Rate > 60; Glucose Random 128 mg/dL (60-115); Sodium 141 mmol/L (135-145)
[2024-09-24 07:00] LABS: B Type Natriuretic Peptide 363 pg/mL (<100)
[2024-09-24] MEDS: levalbuterol HCL 1.25 MG/3 ML VIAL.NEB INHALE ×4 (08:20→19:16)
[2024-09-24] MEDS: Sertraline HCL 25 MG TABLET PO (09:10)
[2024-09-24] MEDS: 0.9 % Sodium Chloride Flush 3 ML SYRINGE IVFLUSH ×3 (09:10→20:49)
[2024-09-24] MEDS: dilTIAZem HCL CD 240 MG CAP.ER.DEG PO (09:10)
[2024-09-24] MEDS: methylPREDNISolone Sod Succ 40 MG/ML VIAL IVPUSH ×2 (09:10→20:49)
[2024-09-24] MEDS: Furosemide 20 MG TABLET PO ×2 (09:11→16:51)
[2024-09-24] MEDS: Multivitamin TABLET 1 TAB PO (09:11)
[2024-09-24] MEDS: Benztropine Mesylate 1 MG TABLET PO ×2 (09:11→20:45)
[2024-09-24] MEDS: Magnesium Oxide 400 MG TABLET PO (09:11)
[2024-09-24] MEDS: Atorvastatin Calcium 40 MG TABLET PO (09:11)
[2024-09-24] MEDS: Oseltamivir Phosphate 75 MG CAPSULE PO ×2 (09:11→20:45)
[2024-09-24] MEDS: Sertraline HCL 100 MG TABLET PO (09:11)
[2024-09-24] MEDS: ARIPiprazole 20 MG TABLET PO (09:11)
[2024-09-24] MEDS: Acetaminophen 325 MG TABLET 650 MG PO ×2 (09:11→17:04)
[2024-09-24] MEDS: Amiodarone HCL 200 MG TABLET PO (09:11)
[2024-09-24] MEDS: Metoprolol Tartrate 100 MG TABLET PO ×2 (09:11→20:45)
[2024-09-24] MEDS: Empagliflozin 10 MG TABLET PO (09:11)
--- NOTE | 2024-09-24 09:23 | PC.NURSE ---
0645- Upon assuming care of pt this am headliner installer nurse Shaneka Childress stated had ordered Diltiazem drip off at 0130 this am and that drip had been off and not running since 0130. This was not documented in medication list and as such documented at 0645 for this RN's shift time to reflect that drip is off.
--- NOTE | 2024-09-24 09:44 | P.CONCA_ITS ---
History of Present Illness History of Present Illness Date of Service: 09/24/24 Chief complaint: Flu +, aFib w/ rvr, CHF and asthma exacerbations Narrative: This is a cardiology consultation regarding atrial fibrillation. Patient has been in our practice for the last few years but has now switched over to [facility] and is awaiting appointment there. She has also seen EP at [facility]. Essentially, she has got paroxysmal atrial fibrillation but has had many recurrences over time. She has been on Multaq in the past but because of compliance issues it was stopped. Then put on diltiazem/metoprolol which she has been taking. Then during a [facility] hospitalization, amiodarone was started. Currently, listed to be on amiodarone/metoprolol. With regard to diltiazem, she states she has not been taking that. Admissions because of respiratory symptoms like cough and shortness of breath with wheezing. In this context, diagnosed with influenza. She is having atrial fibrillation rapid rate episodes. Apart from respiratory symptoms from the influenza, no clear-cut cardiac concerns. We have been asked to assess her. When asked her about medications, she states that she is taking the amiodarone and metoprolol at home but not taking the diltiazem. Review of Systems 2 Review of Systems: Yes all other systems are reviewed and are negative Constitutional: Constitutional: Reports as per HPI and Reports no additional constitutional complaints Eyes: Eyes: Reports as per HPI and Denies no additional eye complaints ENT: Denies system reviewed and no additional complaints, except as documented and Reports as per HPI Cardiovascular: Cardiovascular: Reports as per HPI, Reports no additional cardiovascular complaints, Denies acrocyanosis, Denies cool extremities, Denies chest pain, Denies leg edema, Denies lightheadedness, Denies palpitations and Reports dyspnea Respiratory: Respiratory: Reports as per HPI, Denies no additional respiratory complaints, Reports cough and Reports dyspnea Gastrointestinal: Gastrointestinal: Reports as per HPI and Denies no additional gastrointestinal complaints Genitourinary: Genitourinary: Reports as per HPI Musculoskeletal: Musculoskeletal: Reports no additional musculoskeletal complaints and Reports as per HPI Integumentary/Breasts: Skin/Breast: Reports system reviewed and no additional complaints, except as docu Neurologic: Reports system reviewed and no additional complaints, except as documented and Reports as per HPI Psychiatric: Psychiatric: Reports no additional psychiatric complaints and Reports as per HPI Endocrine: Endocrine: Reports no additional endocrine complaints, Reports as per HPI and Denies palpitations Hematologic/Lymphatic: Hematologic/Lymphatic: Reports no additional hematologic/lymphatic complaints and Reports as per HPI Allergic/Immunologic: Allergic/Immunologic: Reports no additional allergic/immunologic complaints and Reports as per HPI [facility] Past Medical History Medical History Chronic restrictive lung disease Nonischemic cardiomyopathy PAF (paroxysmal atrial fibrillation) Nocturnal hypoxemia Morbid obesity Asthma-COPD overlap syndrome Diastolic dysfunction Pneumonitis Schizophrenia, paranoid Afib Schizophrenia Atrial fib/flutter, transient Pneumonia due to COVID-19 virus Pacemaker Hypothyroid Schizophrenia HTN (hypertension) Asthma Family History Family History Father Heart disease Mother Heart disease Surgical History Surgical History History of cardiac pacemaker Hx of kidney removal Hx of removal of ovary Social History Social History Household Members: None Housing: Apartment Do you presently have visiting nurse or other home services: Yes Alcohol intake: never Patient Tobacco Use Status: Former Tobacco user Years Smoked: 10 years +/- Advance Directives Date on File: 10/30/20 service: No Current occupational status: disabled Meds Allergies Allergy/AdvReac Type Severity Reaction Status Date / Time Seasonal Allergies Allergy Unknown Verified 09/22/24 13:14 Active Medications: Current Medications Acetaminophen (Acetaminophen 325 Mg Tablet) 650 mg PO Q6H PRN PRN Reason: Pain, Mild 1-3,fever,headache Last Admin: 09/24/24 09:11 Dose: 650 mg Amiodarone HCl (Amiodarone Hcl 200 Mg Tablet) 200 mg PO DAILY [facility] Last Admin: 09/24/24 09:11 Dose: 200 mg Aripiprazole (Aripiprazole 20 Mg Tablet) 20 mg PO DAILY [facility] Last Admin: 09/24/24 09:11 Dose: 20 mg Atorvastatin Calcium (Atorvastatin Calcium 40 Mg Tablet) 40 mg PO DAILY [facility] Last Admin: 09/24/24 09:11 Dose: 40 mg Benztropine Mesylate (Benztropine Mesylate 1 Mg Tablet) 1 mg PO BID [facility] Last Admin: 09/24/24 09:11 Dose: 1 mg Calcium Carbonate (Calcium Carbonate 750 Mg Tab.Chew) 750 mg PO Q4H PRN PRN Reason: Heartburn Diltiazem HCl (Diltiazem Hcl Cd 240 Mg Cap.Er.Deg) 240 mg PO DAILY [facility]; Protocol Last Admin: 09/24/24 09:10 Dose: 240 mg Empagliflozin (Empagliflozin 10 Mg Tablet) 10 mg PO DAILY [facility] Last Admin: 09/24/24 09:11 Dose: 10 mg Furosemide (Furosemide 20 Mg Tablet) 20 mg PO BID@0900,1800 [facility]; Protocol Last Admin: 09/24/24 09:11 Dose: 20 mg Guaifenesin/Dextromethorphan (Guaifenesin Dm 200/20/10 Ml 10 Ml Syrup) 10 ml PO Q4H PRN PRN Reason: Cough Last Admin: 09/24/24 06:55 Dose: 10 ml Levalbuterol HCl (Levalbuterol Hcl 1.25 Mg/3 Ml Vial.Neb) 1.25 mg INHALE RQ4H WHILE AWAKE [facility] Last Admin: 09/24/24 08:20 Dose: 1.25 mg Levalbuterol HCl (Levalbuterol Hcl 1.25 Mg/3 Ml Vial.Neb) 1.25 mg INHALE Q4H PRN PRN Reason: Shortness of Breath/Wheezing Last Admin: 09/22/24 22:36 Dose: 1.25 mg Levothyroxine Sodium (Levothyroxine Sodium 112 Mcg Tablet) 112 mcg PO MOTUWETHFRSA@0600 [facility] Last Admin: 09/23/24 05:48 Dose: 112 mcg Levothyroxine Sodium (Levothyroxine Sodium 112 Mcg Tablet) 168 mcg PO ALLRED@0600 [facility] Last Admin: 09/24/24 04:25 Dose: 168 mcg Loperamide HCl (Loperamide Hcl 2 Mg Capsule) 2 mg PO Q4H PRN PRN Reason: Diarrhea Last Admin: 09/24/24 04:25 Dose: 2 mg Magnesium Hydroxide (Milk Of Magnesia 30 Ml Oral.Susp) 30 ml PO DAILY PRN PRN Reason: Constipation Magnesium Oxide (Magnesium Oxide 400 Mg Tablet) 400 mg PO DAILY [facility] Last Admin: 09/24/24 09:11 Dose: 400 mg Melatonin (Melatonin 3 Mg Tablet) 6 mg PO BEDTIME PRN PRN Reason: Insomnia Methylprednisolone Sodium Succinate (Methylprednisolone Sod Succ 40 Mg/Ml Vial) 40 mg IVPUSH Q12H [facility] Last Admin: 09/24/24 09:10 Dose: 40 mg Metoprolol Tartrate (Metoprolol Tartrate 100 Mg Tablet) 100 mg PO BID [facility]; Protocol Last Admin: 09/24/24 09:11 Dose: 100 mg Montelukast Sodium (Montelukast Sodium 10 Mg Tablet) 10 mg PO BEDTIME [facility] Last Admin: 09/23/24 20:56 Dose: 10 mg Multivitamins/Vitamin C (Multivitamin Tablet) 1 tab PO DAILY [facility] Last Admin: 09/24/24 09:11 Dose: 1 tab Ondansetron HCl (Ondansetron Hcl 4 Mg/2 Ml Vial) 4 mg IVPUSH Q8H PRN PRN Reason: Nausea and Vomiting Oseltamivir Phosphate (Oseltamivir Phosphate 75 Mg Capsule) 75 mg PO Q12H [facility] Stop: 09/27/24 09:01 Last Admin: 09/24/24 09:11 Dose: 75 mg Rivaroxaban (Rivaroxaban 20 Mg Tablet) 20 mg PO BEDTIME [facility] Last Admin: 09/23/24 20:56 Dose: 20 mg Sertraline HCl (Sertraline Hcl 25 Mg Tablet) 25 mg PO DAILY [facility] Last Admin: 09/24/24 09:10 Dose: 25 mg Sertraline HCl (Sertraline Hcl 100 Mg Tablet) 100 mg PO DAILY [facility] Last Admin: 09/24/24 09:11 Dose: 100 mg Sodium Chloride (0.9 % Sodium Chloride Flush 3 Ml Syringe) [facility] Last Admin: 09/24/24 09:10 Dose: 3 ml Home Medications ?Medication ?Instructions ?Recorded ?Confirmed ?Last Taken ?Type levothyroxine 112 mcg tablet 112 mcg PO MOTUWETHFRSA@0600 07/30/20 09/22/24 09/21/24 History magnesium oxide 400 mg (241.3 mg 400 mg PO DAILY 07/30/20 09/22/24 09/21/24 History magnesium) tablet melatonin 5 mg tablet 10 mg PO BEDTIME PRN insomnia 07/30/20 09/22/24 01/10/22 History benztropine 1 mg tablet 1 mg PO BID 06/17/21 09/22/24 09/21/24 History acetaminophen 325 mg tablet 650 mg PO Q4H PRN 05/22/22 01/31/25 Unknown History fever/headache/pain [id number]-[id number] tablet 1 tab PO DAILY 01/11/22 09/22/24 09/21/24 History nystatin-triamcinolone 100,000 1 appl topical BID 01/11/22 09/22/24 09/21/24 History unit/g-0.1 % topical cream sertraline 25 mg tablet 25 mg PO DAILY 05/11/23 09/22/24 09/21/24 History atorvastatin 40 mg tablet 40 mg PO DAILY 09/21/23 09/22/24 09/21/24 History Oxygen Home Use 05/08/24 07/17/24 Unknown History sertraline 100 mg tablet 100 mg PO DAILY 05/08/24 09/22/24 09/21/24 History empagliflozin 10 mg tablet 10 mg PO DAILY 07/17/24 09/22/24 09/21/24 History (Jardiance) aripiprazole 20 mg tablet 20 mg PO DAILY 09/22/24 09/22/24 Unknown History diltiazem HCl 240 mg 240 mg PO DAILY 09/22/24 09/22/24 09/21/24 History capsule,extended release 24 hr levothyroxine 112 mcg tablet 168 mcg PO ALLRED@0600 09/22/24 09/22/24 09/17/24 History paliperidone palmitate 234 mg/1.5 234 mg IM Q3W 09/22/24 09/22/24 09/14/24 History mL intramuscular syringe (Invega Sustenna) rivaroxaban 20 mg tablet (Xarelto) 20 mg PO BEDTIME 09/22/24 09/22/24 09/21/24 History Physical Exam 2 Vital Signs: Vital Signs: Last Vital Signs Temp 96.5 F L 09/24/24 08:00 Pulse 65 09/24/24 08:20 Resp 20 09/24/24 08:20 BP 119/68 09/24/24 08:00 Pulse Ox 96 09/24/24 08:00 O2 Del Method Nasal Cannula 09/24/24 08:00 O2 Flow Rate 2 09/24/24 08:00 Oxygen Flow Rate 2 09/22/24 13:08 BMI result Body Mass Index 49.8 Const: General: comfortable and no acute distress O rientation/consciousness: patient oriented x3 HEENT: Other: Unremarkable Head: Yes normal to inspection Neck: Neck: Yes normal visual inspection Chest: Chest palpation & inspection: normal inspection of the chest Resp: Auscultation: wheezes and breath sounds absent Cardio: Palpation: normal PMI Heart sounds: S1 normal heart sound present, S2 normal heart sound present, no gallops, no murmurs and no rubs GI: Palpation (GI): Soft to palpation Back/Spine/Pelvis: Other: unremarkable Skin: General skin exam: no rashes or lesions noted Neuro: General: patient oriented x3 Extrem: General: Yes normal to inspection Psych: Mental Status: mental status grossly normal Objective Labs and Meds 09/22/24 14:08 09/24/24 06:32 Lab results: Laboratory Results - last 24 hr 09/24/24 06:32 Sodium 141 Potassium 4.0 Chloride 109 H Carbon Dioxide 23 Anion Gap 13 BUN 18 H Creatinine 0.74 Estim Creat Clear Calc 94.0 Estimated GFR > 60 Random Glucose 128 H Calcium 8.8 D B-Natriuretic Peptide 363 H ECG Interpretation: EKG with some sinus beats and atrial paced beats with intermittent ventricular pacing. There is also some atrial fibrillation with rapid rate. Another EKG shows sinus rhythm. On telemetry currently atrial paced, ventricular sensed beats. Intermittent atrial fibrillation. Assessment and Plan (1) Atrial fibrillation with rapid ventricular response: Status: Acute (2) Acute on chronic diastolic (congestive) heart failure: Status: Acute (3) Influenza A: Status: Acute Plan High sensitivity troponin is within range. Cardiac BNP slightly abnormal at 420 and 363. Influenza A positive. Chest x-ray reported have cardiomegaly/mild pulmonary vascular congestion. Echocardiogram from [facility], 07/12/2024 with LVEF of 65-70%. Moderate diastolic dysfunction. Left atrium moderately dilated. Mild mitral regurgitation. Overall, atrial fibrillation episodes but nothing prolonged. They last for few hours and then go back to atrial paced or sinus rhythm. Probably precipitated from influenza. May keep her on the current regimen of amiodarone, metoprolol, diltiazem. Anticoagulation. Empiric diuretics as needed. Suspect symptoms are more from influenza then any heart failure but can not exclude some components of the same either. Check TSH. Upon discharge, she can follow up with a new automotive general sales manager and she already has an appointment for that-at [facility]. Procedures Date of Service Date of Service: 09/24/24
--- NOTE | 2024-09-24 09:44 | MHC.CM.PN ---
IMM 09/24/24, pt lives alone, she has VNA services from [facility] (update sent via care port). PCP is Dr. Khan, for DME, pt. has: walker, cane, shower chair, home O2. HCP on file and confirmed: [place]. Pt will need assistance with transport home at [place]. DCP: home, resume services. CM to follow for DC needs.
--- NOTE | 2024-09-24 10:34 | HO.PM.IMPN ---
Subjective Subjective Date of Service: 09/24/24 Interval History: still wheezy Physical Exam Vital Signs: Vital Signs: Last Vital Signs Temp 96.5 F L 09/24/24 08:00 Pulse 65 09/24/24 08:20 Resp 20 09/24/24 08:20 BP 119/68 09/24/24 08:00 Pulse Ox 96 09/24/24 08:00 O2 Del Method Nasal Cannula 09/24/24 08:00 O2 Flow Rate 2 09/24/24 08:00 Oxygen Flow Rate 2 09/22/24 13:08 BMI result Body Mass Index 49.8 Const: General: comfortable and no acute distress Orientation/consciousness: patient oriented x3 HEENT: Other: Unremarkable Head: Yes normal to inspection Neck: Neck: Yes normal visual inspection Chest: Chest palpation & inspection: normal inspection of the chest Resp: Auscultation: wheezes and breath sounds absent Cardio: Palpation: normal PMI Heart sounds: S1 normal heart sound present, S2 normal heart sound present, no gallops, no murmurs and no rubs GI: Palpation (GI): Soft to palpation Back/Spine/Pelvis: Other: unremarkable Skin: General skin exam: no rashes or lesions noted Neuro: General: patient oriented x3 Extrem: General: Yes normal to inspection Psych: Mental Status: mental status grossly normal Objective Data Active Medications Acetaminophen (Acetaminophen 325 Mg Tablet) 650 mg PO Q6H PRN PRN Reason: Pain, Mild 1-3,fever,headache Last Admin: 09/24/24 09:11 Dose: 650 mg Documented By: ADELA Amiodarone HCl (Amiodarone Hcl 200 Mg Tablet) 200 mg PO DAILY [facility] Last Admin: 09/24/24 09:11 Dose: 200 mg Documented By: ADELA Aripiprazole (Aripiprazole 20 Mg Tablet) 20 mg PO DAILY [facility] Last Admin: 09/24/24 09:11 Dose: 20 mg Documented By: ADELA Atorvastatin Calcium (Atorvastatin Calcium 40 Mg Tablet) 40 mg PO DAILY [facility] Last Admin: 09/24/24 09:11 Dose: 40 mg Documented By: ADELA Benztropine Mesylate (Benztropine Mesylate 1 Mg Tablet) 1 mg PO BID [facility] Last Admin: 09/24/24 09:11 Dose: 1 mg Documented By: ADELA Calcium Carbonate (Calcium Carbonate 750 Mg Tab.Chew) 750 mg PO Q4H PRN PRN Reason: Heartburn Diltiazem HCl (Diltiazem Hcl Cd 240 Mg Cap.Er.Deg) 240 mg PO DAILY [facility]; Protocol Last Admin: 09/24/24 09:10 Dose: 240 mg Documented By: ADELA Empagliflozin (Empagliflozin 10 Mg Tablet) 10 mg PO DAILY [facility] Last Admin: 09/24/24 09:11 Dose: 10 mg Documented By: ADELA Furosemide (Furosemide 20 Mg Tablet) 20 mg PO BID@0900,1800 [facility]; Protocol Last Admin: 09/24/24 09:11 Dose: 20 mg Documented By: ADELA Guaifenesin/Dextromethorphan (Guaifenesin Dm 200/20/10 Ml 10 Ml Syrup) 10 ml PO Q4H PRN PRN Reason: Cough Last Admin: 09/24/24 06:55 Dose: 10 ml Documented By: JOSÉ LUIS Levalbuterol HCl (Levalbuterol Hcl 1.25 Mg/3 Ml Vial.Neb) 1.25 mg INHALE RQ4H WHILE AWAKE [facility] Last Admin: 09/24/24 08:20 Dose: 1.25 mg Documented By: AMY Levalbuterol HCl (Levalbuterol Hcl 1.25 Mg/3 Ml Vial.Neb) 1.25 mg INHALE Q4H PRN PRN Reason: Shortness of Breath/Wheezing Last Admin: 09/22/24 22:36 Dose: 1.25 mg Documented By: JERMAN Levothyroxine Sodium (Levothyroxine Sodium 112 Mcg Tablet) 112 mcg PO MOTUWETHFRSA@0600 [facility] Last Admin: 09/23/24 05:48 Dose: 112 mcg Documented By: ROMAIN Levothyroxine Sodium (Levothyroxine Sodium 112 Mcg Tablet) 168 mcg PO ALLRED@0600 [facility] Last Admin: 09/24/24 04:25 Dose: 168 mcg Documented By: JOSÉ LUIS Loperamide HCl (Loperamide Hcl 2 Mg Capsule) 2 mg PO Q4H PRN PRN Reason: Diarrhea Last Admin: 09/24/24 04:25 Dose: 2 mg Documented By: JOSÉ LUIS Magnesium Hydroxide (Milk Of Magnesia 30 Ml Oral.Susp) 30 ml PO DAILY PRN PRN Reason: Constipation Magnesium Oxide (Magnesium Oxide 400 Mg Tablet) 400 mg PO DAILY [facility] Last Admin: 09/24/24 09:11 Dose: 400 mg Documented By: ADELA Melatonin (Melatonin 3 Mg Tablet) 6 mg PO BEDTIME PRN PRN Reason: Insomnia Methylprednisolone Sodium Succinate (Methylprednisolone Sod Succ 40 Mg/Ml Vial) 40 mg IVPUSH Q12H [facility] Last Admin: 09/24/24 09:10 Dose: 40 mg Documented By: ADELA Metoprolol Tartrate (Metoprolol Tartrate 100 Mg Tablet) 100 mg PO BID [facility]; Protocol Last Admin: 09/24/24 09:11 Dose: 100 mg Documented By: ADELA Montelukast Sodium (Montelukast Sodium 10 Mg Tablet) 10 mg PO BEDTIME [facility] Last Admin: 09/23/24 20:56 Dose: 10 mg Documented By: JOSÉ LUIS Multivitamins/Vitamin C (Multivitamin Tablet) 1 tab PO DAILY [facility] Last Admin: 09/24/24 09:11 Dose: 1 tab Documented By: ADELA Ondansetron HCl (Ondansetron Hcl 4 Mg/2 Ml Vial) 4 mg IVPUSH Q8H PRN PRN Reason: Nausea and Vomiting Oseltamivir Phosphate (Oseltamivir Phosphate 75 Mg Capsule) 75 mg PO Q12H [facility] Stop: 09/27/24 09:01 Last Admin: 09/24/24 09:11 Dose: 75 mg Documented By: ADELA Rivaroxaban (Rivaroxaban 20 Mg Tablet) 20 mg PO BEDTIME [facility] Last Admin: 09/23/24 20:56 Dose: 20 mg Documented By: JOSÉ LUIS Sertraline HCl (Sertraline Hcl 25 Mg Tablet) 25 mg PO DAILY [facility] Last Admin: 09/24/24 09:10 Dose: 25 mg Documented By: ADELA Sertraline HCl (Sertraline Hcl 100 Mg Tablet) 100 mg PO DAILY [facility] Last Admin: 09/24/24 09:11 Dose: 100 mg Documented By: ADELA Sodium Chloride (0.9 % Sodium Chloride Flush 3 Ml Syringe) [facility] Last Admin: 09/24/24 09:10 Dose: 3 ml Documented By: ADELA Labs 09/22/24 14:08 09/24/24 06:32 Labs: Laboratory Results - last 24 hr 09/24/24 06:32 Anion Gap 13 Estim Creat Clear Calc 94.0 Estimated GFR > 60 Random Glucose 128 H Calcium 8.8 D B-Natriuretic Peptide 363 H Assessment and Plan (1) Atrial fibrillation with rapid ventricular response: Status: Acute Plan 69F PMH significant for?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, paroxysmal AFib on Xarelto, tachy-alicia syndrome s/p pacemaker in situ, HFpEF, HTN, hypothyroidism, MARGOTH on CPAP, and schizophrenia who presented to the ED with?SOB, found to be in afib with rvr and flu chronic hypoxic respiratory failure with Acute asthma/COPD overlap syndrome exacerbation in the setting of acute influenza type a infection continue steroids, tamiflu, baseline 2L o2, updrafts still wheezing Acute on chronic HFpEF exacerbation continue IV lasix, daily weights, i/o paroxysmal AFib with RVR continue current meds consider cardio appreciated check tsh HLD Continue statin Hypothyroidism Continue levothyroxine Mood disorder Continue aripiprazole and sertraline Obesity class 3 Encourage weight loss Full Code DVT pptx - xarelto reason for continued hospitalization:still wheezy Quality Stroke Does the patient have a stroke diagnosis?: No VTE Prior VTE?: No VTE Risk Level:: Medical - moderate - high VTE Device Contraindication: Treatment Not Indicated VTE Drug Contraindication: N/A - Med Ordered
[2024-09-24 11:33] LABS: TSH reflex Free T4 0.83 uIU/mL (0.32-4.0)
[2024-09-24] MEDS: LORazepam 1 MG TABLET PO (17:31)
[2024-09-24] MEDS: Rivaroxaban 20 MG TABLET PO (20:45)
[2024-09-24] MEDS: Montelukast Sodium 10 MG TABLET PO (20:45)
[2024-09-25] VITALS: BP 104/58; PULSE 59; RESP 18; TEMP 36.4; O2SAT 95
[2024-09-25 03:32] VITALS: BP 142/78; PULSE 59; RESP 20; TEMP 36.4; O2SAT 95
[2024-09-25] MEDS: guaiFENesin DM 200/20/10 ML 10 ML SYRUP PO ×2 (03:47→09:50)
[2024-09-25] MEDS: Levothyroxine Sodium 112 MCG TABLET PO (03:47)
[2024-09-25 06:00] VITALS: BMI 51.1
[2024-09-25 06:42] LABS: Hematocrit 40.4 % (37.0-47.0); Mean Corpuscular HGB Conc 32.2 g/dl (31.0-35.0); Mean Corpuscular Hemoglobin 30.2 pg (27.0-33.0); Mean Corpuscular Volume 93.7 fL (80.0-98.0); Mean Platelet Volume 9.9 fL (9.4-12.3); Platelet Count 228 X10*3/uL (160-400); Red Blood Count 4.31 X10*6/uL (4.20-5.50); Red Cell Distribution Width 14.6 % (11.0-16.0); White Blood Count 8.3 X10*3/uL (4.8-10.8)
[2024-09-25 06:55] LABS: Anion Gap 12 (12-20); Blood Urea Nitrogen 22 mg/dL (9-16); Carbon Dioxide 24 mmol/L (22-29); Chloride 109 mmol/L (96-108); Creatinine Clr Calc Pharmacy 91.2; Estimated Glomerular Filt Rate > 60; Glucose Random 123 mg/dL (60-115); Potassium 4.2 mmol/L (3.3-5.1); Sodium 141 mmol/L (135-145)
[2024-09-25 07:27] VITALS: PULSE 59; RESP 20; O2SAT 94
[2024-09-25] MEDS: levalbuterol HCL 1.25 MG/3 ML VIAL.NEB INHALE ×2 (07:27→11:18)
[2024-09-25 07:56] VITALS: BP 114/62; PULSE 60; RESP 20; TEMP 36.2; O2SAT 96
[2024-09-25] MEDS: Atorvastatin Calcium 40 MG TABLET PO (09:50)
[2024-09-25] MEDS: Magnesium Oxide 400 MG TABLET PO (09:50)
[2024-09-25] MEDS: Acetaminophen 325 MG TABLET 650 MG PO (09:50)
[2024-09-25] MEDS: Empagliflozin 10 MG TABLET PO (09:50)
[2024-09-25] MEDS: Oseltamivir Phosphate 75 MG CAPSULE PO (09:50)
[2024-09-25] MEDS: 0.9 % Sodium Chloride Flush 3 ML SYRINGE IVFLUSH (09:51)
[2024-09-25] MEDS: Amiodarone HCL 200 MG TABLET PO (09:51)
[2024-09-25] MEDS: ARIPiprazole 20 MG TABLET PO (09:51)
[2024-09-25] MEDS: Benztropine Mesylate 1 MG TABLET PO (09:51)
[2024-09-25] MEDS: Multivitamin TABLET 1 TAB PO (09:51)
[2024-09-25] MEDS: Furosemide 20 MG TABLET PO (09:51)
[2024-09-25] MEDS: Sertraline HCL 100 MG TABLET PO (09:51)
[2024-09-25] MEDS: Sertraline HCL 25 MG TABLET PO (09:51)
[2024-09-25] MEDS: Metoprolol Tartrate 100 MG TABLET PO (09:51)
[2024-09-25] MEDS: dilTIAZem HCL CD 240 MG CAP.ER.DEG PO (09:51)
[2024-09-25] MEDS: methylPREDNISolone Sod Succ 40 MG/ML VIAL IVPUSH (09:52)
--- NOTE | 2024-09-25 10:13 | PM.DS ---
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 Also reporting diarrhea, myalgias, and increased fatigue, as well as subjective fever and chills. Occasional palpitations over the past few months, and increased lower leg edema especially in right leg over the past couple of days. Denies nausea, vomiting, abdominal pain. Symptom stems this morning worsened this morning and pt reports she just ?could not breathe?. Reports she has been unable to use her nebulizer at home due to cost of treatments. Of note, pt was placed on diltiazem drip in the ED for AFib with RVR. After about 2 hours on the drip pt converted normal sinus rhythm with HR in the 60s. In the ED pt was tachycardic up to 173, tachypneic up to 30, and soft BP as low as 114/53, satting at 94% on home 2L O2 NC. Labs were significant for testing positive for influenza type a, potassium 3.1, and elevated BNP of 286. CXR showed cardiomegaly and mild pulmonary vascular congestion. Venous duplex ultrasound negative for bilateral lower extremity DVTs. Initial EKG demonstrated normal sinus rhythm without evidence of significant ST elevations or depressions. Repeat EKG showed AFib with RVR of 170. Third EKG showed sinus rhythm of 65 with frequent ventricular paced complexes. Pt was treated with DuoNeb, Solu-Medrol, potassium chloride, Mag sulfate 2 g IV, diltiazem 20 mg IV x2, diltiazem 25 mg IV, diltiazem 240 mg p.o., and placed on a diltiazem drip. Pt will be admitted to the hospital for treatment and further evaluation of acute asthma/COPD exacerbation, CHF exacerbation, and AFib with RVR in the setting of acute influenza a infection. hospital course: Patient was admitted for chronic hypoxic respiratory failure secondary to acute asthma/COPD overlap exacerbation in the setting of flu a. She was treated with steroids, Tamiflu, DuoNebs. She remained at baseline 2 L O2 and symptoms improved. For acute on chronic diastolic CHF received IV Lasix and improved. For paroxysmal AFib with RVR was continued on Cardizem, metoprolol, amiodarone and heart rate has improved. For hyperlipidemia was continued on statin. For hypothyroidism was continued on levothyroxine. For mood disorder was continued on aripiprazole and sertraline. For obesity weight loss is recommended. Patient will be discharged home and complete Tamiflu course and 5 more days of prednisone. Time Attestation Discharge Coordination Time (in mins): 33 Quality: Safe Use of Opioids Does Pt have an Active Cancer Diagnosis on the Problem List?: No Quality: Stroke Does the patient have a stroke diagnosis?: No Physical Exam Vital Signs: Vital Signs: Last Vital Signs Temp 97.2 F 09/25/24 07:56 Pulse 60 09/25/24 07:56 Resp 20 09/25/24 07:56 BP 114/62 09/25/24 07:56 Pulse Ox 96 09/25/24 07:56 O2 Del Method Nasal Cannula 09/25/24 07:56 O2 Flow Rate 2 09/25/24 07:56 Oxygen Flow Rate 2 09/22/24 13:08 BMI result Body Mass Index 51.1 General: AO X 3, no acute distress Resp: CTA bilateral, no accessory muscles used CVS: S1,S2,RRR GI: soft, non tender, non distended Neuro: motor grossly intact, alert Psych: appropriate affect, appropriate insight DS: Data Data Completed and Pending Labs on day of discharge: Laboratory Results - last 24 hr 09/23/24 09/25/24 04:31 06:10 WBC 8.3 RBC 4.31 Hgb 13.0 Hct 40.4 MCV 93.7 MCH 30.2 MCHC 32.2 RDW 14.6 Plt Count 228 D MPV 9.9 Absolute Nucleated RBC 0.000 Nucleated RBC % (auto) 0.0 Sodium 141 Potassium 4.2 Chloride 109 H Carbon Dioxide 24 Anion Gap 12 BUN 22 H Creatinine 0.77 Estim Creat Clear Calc 91.2 Estimated GFR > 60 Random Glucose 123 H Calcium 9.0 TSH 0.83 Discharge Plan Discharge Anticipated Discharge Date/Time: 09/25/24 09:45 Patient Disposition: Home, Self-Care Discharge Diagnosis: COPD, CHF, flu Referrals: Masoud Khan MD [Primary Care Provider] - 1 Week Discharge Medications: New oseltamivir [Tamiflu] 75 mg Capsule 75 mg PO Q12H Qty: 5 0RF prednisone 20 mg tablet 40 mg PO DAILY Qty: 10 0RF Continued atorvastatin 40 mg tablet 40 mg PO DAILY albuterol sulfate 90 mcg/actuation HFA aerosol inhaler 2 puff inhalation Q4-6H PRN (Reason: shortness of breath or wheezing) Qty: 1 3RF metoprolol tartrate 100 mg tablet 100 mg PO BID 90 Days Qty: 180 2RF amiodarone 200 mg tablet 200 mg PO DAILY Qty: 30 0RF Rx Instructions: No further refills through our office - changing providers fluticasone propion-salmeterol [Advair HFA] 230-21 mcg/actuation HFA aerosol inhaler 2 puff inhalation BID 30 Days Qty: 12 11RF magnesium oxide 400 mg (241.3 mg magnesium) tablet 400 mg PO DAILY levothyroxine 112 mcg tablet 112 mcg PO MOTUWETHFRSA@0600 melatonin 5 mg tablet 10 mg PO BEDTIME PRN (Reason: insomnia) acetaminophen 325 mg Tablet 650 mg PO Q4H PRN (Reason: fever/headache/pain) nystatin-triamcinolone 100,000-0.1 unit/g-% cream 1 appl TOPICAL BID hmyihiytjicu-vuvebahj-lnjihs Tablet 1 tab PO DAILY diltiazem HCl 240 mg capsule,extended release 24hr 240 mg PO DAILY aripiprazole 20 mg tablet 20 mg PO DAILY Invega Sustenna 234 mg/1.5 mL syringe 234 mg IM Q3W levothyroxine 112 mcg tablet 168 mcg PO ALLRED@0600 Xarelto 20 mg tablet 20 mg PO BEDTIME benztropine 1 mg tablet 1 mg PO BID sertraline 25 mg tablet 25 mg PO DAILY sertraline 100 mg tablet 100 mg PO DAILY (DME) Oxygen Home Use Kit See Rx Instructions .Route Rx Instructions: As directed furosemide 20 mg tablet 20 mg PO DAILY PRN (Reason: edema) Qty: 14 1RF Rx Instructions: No further refills through our office - changing providers montelukast [Singulair] 10 mg tablet 10 mg PO BEDTIME 30 Days Qty: 30 11RF Jardiance 10 mg tablet 10 mg PO DAILY Discharge Orders: Discharge Order (Routine); Ordered 09/25/24 Ordered By: Fan Katz Diet: Advance to usual diet Activity on Discharge: As tolerated Stand Alone Forms: Patient Portal Discharge page Print Language: Armenian Care Plan Goals: recovery Health Concerns: flu Plan of Treatment: prednisone, tamiflu Assessment: see above
--- NOTE | 2024-09-25 10:31 | MHC.CM.PN ---
Pt is medically cleared for discharge home with resumption of previous [facility] services, pt has arranged her own transport home today (relative present at bedside will bring her home).
[2024-09-25 10:48] VITALS: BP 123/80; PULSE 94; RESP 20; TEMP 36.5; O2SAT 96
[2024-09-25 11:18] VITALS: PULSE 94; RESP 20; O2SAT 93
== END 2024-09-25 14:06 | disposition home or self-care (01) | DRG 193 ==
LOC: HO.ED 17:03 → HO.EDOVER 20:38 → HO.IMC 09-23 08:02
PROVIDERS: Hospitalist; Physician Assistant Medical; Admitting Provider Student in an Organized Health Care Education/Training Program; Emergency Provider Emergency Medicine; PCP Internal Medicine; Visit Provider Internal Medicine
DX: J10.1 Influenza due to other identified influenza virus with other respiratory manifestations (principal); I50.33 Acute on chronic diastolic (congestive) heart failure; J44.1 Chronic obstructive pulmonary disease with (acute) exacerbation; J45.901 Unspecified asthma with (acute) exacerbation; Z68.43 Body mass index [BMI] 50.0-59.9, adult; I42.8 Other cardiomyopathies; J96.11 Chronic respiratory failure with hypoxia; I48.0 Paroxysmal atrial fibrillation; I49.5 Sick sinus syndrome; E03.9 Hypothyroidism, unspecified; E66.813 Obesity, class 3; E78.5 Hyperlipidemia, unspecified; I11.0 Hypertensive heart disease with heart failure; Z71.3 Dietary counseling and surveillance; F39 Unspecified mood [affective] disorder; I34.0 Nonrheumatic mitral (valve) insufficiency; G47.33 Obstructive sleep apnea (adult) (pediatric); Z95.0 Presence of cardiac pacemaker; Z99.81 Dependence on supplemental oxygen; Z79.01 Long term (current) use of anticoagulants; Z79.890 Hormone replacement therapy; Z79.899 Other long term (current) drug therapy
CPT/HCPCS: 36415; 71046; 80048; 80053; 83735; 83880; 84443; 84484; 85025; 85027; 85610; 87502; 87635; 93005; 93970; 94640; 99285; J1940; J2919; J3475

== ENCOUNTER → 2024-09-22 13:17 | Outpatient (BNV) | payer MEDICARE, MEDICAID, SELFPAY | PROVIDERS: PCP Internal Medicine; Visit Provider Radiology Diagnostic Radiology | DX: R22.43 Localized swelling, mass and lump, lower limb, bilateral (principal); I51.7 Cardiomegaly | CPT/HCPCS: 71046 ==

== ENCOUNTER → 2024-09-22 13:17 | Outpatient (BNV) | payer MEDICARE, MEDICAID, SELFPAY | PROVIDERS: Admitting Provider Student in an Organized Health Care Education/Training Program; Emergency Provider Emergency Medicine; PCP Internal Medicine; Visit Provider Internal Medicine | DX: I49.3 Ventricular premature depolarization (principal); I48.91 Unspecified atrial fibrillation | CPT/HCPCS: 93010 ==

== ENCOUNTER → 2024-09-22 20:27 | Outpatient (BNV) | payer MEDICARE, MEDICAID, SELFPAY | PROVIDERS: Admitting Provider Student in an Organized Health Care Education/Training Program; Emergency Provider Emergency Medicine; PCP Internal Medicine; Visit Provider Student in an Organized Health Care Education/Training Program | DX: I48.91 Unspecified atrial fibrillation (principal); J44.1 Chronic obstructive pulmonary disease with (acute) exacerbation; J45.901 Unspecified asthma with (acute) exacerbation | CPT/HCPCS: 99223; 99232; 99239; 99499 ==

== ENCOUNTER → 2024-09-22 20:27 | Outpatient (BNV) | payer MEDICARE, MEDICAID, SELFPAY | PROVIDERS: Admitting Provider Student in an Organized Health Care Education/Training Program; Emergency Provider Emergency Medicine; PCP Internal Medicine; Visit Provider Internal Medicine | DX: I48.91 Unspecified atrial fibrillation (principal); I50.33 Acute on chronic diastolic (congestive) heart failure; J10.1 Influenza due to other identified influenza virus with other respiratory manifestations | CPT/HCPCS: 99223 ==

== ENCOUNTER 2024-11-09 05:49 | Inpatient (IN) | payer MEDICARE, MEDICAID, SELFPAY ==
[2024-11-09] VITALS (17 sets, daily range): BP systolic 107–144; BP diastolic 53–99; PULSE 53–134; RESP 14–22; TEMP 36.5–37; O2SAT 92–97; BMI 47.5
--- NOTE | ~2024-11-09 | XR_ITS ---
EXAMINATION: XR CHEST CLINICAL INFORMATION: Rapid AFib COMPARISON: September 22, 2024. TECHNIQUE: Frontal view of the chest was obtained. FINDINGS: Haziness in the perihilar regions and indistinct margins of the pulmonary vasculature. Cardiomediastinal silhouette size is normal. Calcified plaque thoracic aorta. Left-sided pacemaker with 2 intact electrode leads in the right heart chambers. Multiple EKG wires overlapping the heart silhouette. XR/XR chest 1V IMPRESSION: Pulmonary edema, mild to moderate. No cardiomegaly. Electronically signed by: Jasper Lynne MD 11/09/2024 08:00 AM EDT
--- NOTE | 2024-11-09 05:57 | ECG_ITS ---
Test Reason : DIZZINESS Blood Pressure : */* mmHG Vent. Rate : 130 BPM Atrial Rate : 260 BPM P-R Int : * ms QRS Dur : 70 ms QT Int : 422 ms P-R-T Axes : -72 -39 -59 degrees QTcB Int : 621 ms Atrial flutter with 2:1 A-V conduction Left axis deviation Septal infarct , age undetermined Abnormal ECG When compared with ECG of 22-Sep-2024 20:21, Atrial flutter has replaced Electronic ventricular pacemaker Vent. rate has increased by 65 bpm Referred By: Generic ED Physician Electronically Signed By: Mando Sevilla
--- OUTSIDE RECORDS SUMMARY | 2024-11-09 06:38 | XMS_ITS | Encounter Summary ---
Author Organization [facility] Address [address] [place] [address] Care Team Providers Care Bullard Machine Operator Name Role Phone Masoud Khan MD Primary Care Provider [phone] Reason for Visit * Reason Comments Follow-up Encounter Details Date Type Department Care Team (Late st Contact Info) Description 10/30/2024 9:10 AM EDT Office Visit [facility] - [facility] [address] [facility] [address] [place] [phone] Satnam Garcia NP [address] [place] [address] Sick sinus syndrome (CMS/HCC) (Primary Dx); Coronary artery disease involving eklutna coronary artery of eklutna heart without angina pectoris; Chronic diastolic (congestive) heart failure (CMS/HCC); Paroxysmal atrial fibrillation (CMS/HCC); Hypercholesterolemia; Essential hypertension, benign Social History Tobacco Use Types Packs/Day Years Used Date Smoking Tobacco: Former Cigarettes Q uit: 08/23/1989 Smokeless Tobacco: Never Comments:QUIT IN HER 30'S Alcohol Use Standard Drinks/Week Comments No 0 (1 standard drink = 0.6 oz pur e alcohol) Comments Unknown Sex and Gender Information Value Date Recorded Sex Assigned at Not on file Legal Sex Female 1:10 PM EST Gender Identity Not on file Sexual Orientation Not on file documented as of this encounter Last Filed Vital Signs Vital Sign Reading Time Taken Comments Blood Pressure - - Pulse 61 10/30/2024 9:26 AM EDT Temperature - - Respiratory Rate - - Oxygen Saturation 94% 10/30/2024 9:26 AM EDT Inhaled Oxygen Concentration - - Weight 137 kg (302 lb 12.8 oz) 10/30/2024 9:26 A M EDT Height 160 cm (5' 3 ) 10/30/2024 9:26 AM EDT Body Mass Index 53.64 10/30/2024 9:26 AM EDT documented in this encounter Progress Notes * Satnam Garcia NP - 10/30/2024 9:10 AM EDTAssociated Problem(s): Sick sinus syndrome (CMS/HCC) Patient has pacemaker in. She is establishing care with our device clinic today. She is switching from [facility]. Will have her continue to do device check ins with her. Patient is predominantly V-paced. * Satnam Garcia NP - 10/30/2024 9:10 AM EDTAssociated Problem(s): CAD (coronary artery disease) Patient denies any anginal symptoms today. Continue on current medication regiment which includes metoprolol, statin. * Satnam aGrcia NP - 10/30/2024 9:10 AM EDTAssociated Problem(s): Chronic diastolic (congestive) heart failure (CMS/HCC) Patient appears mostly euvolemic on exam today. She is doing a good job watching her sodium consumption. Patient should check her weights daily. Could look to add in spironolactone in the future. Will update echocardiogram in a year. * Satnam Garcia NP - 10/30/2024 9:10 AM EDTAssociated Problem(s): Paroxysmal atrial fibrillation (CMS/HCC) Paroxysmal atrial fibrillation. Patient is rate controlled on metoprolol, utilizing Xarelto for CVAprophylaxis. Patient denies any abnormal bleeding. Does have an elevated Faheem Vascor of 5. Continueon current medication regiment. * Satnam Garcia NP - 10/30/2024 9:10 AM EDTAssociated Problem(s): Hypercholesterolemia Continue on current medication regimen of statin. Would like to update lipid panel. Would like her LDL below 70 Orders: Lipid panel; Future * Satnam Garcia NP - 10/30/2024 9:10 AM EDTAssociated Problem(s): Essential hypertension, benign Well-controlled the appointment today. Continue on current medication regimen. * Satnam Garcia NP - 10/30/2024 9:10 AM EDT Images from the original note were not included. [facility] PRIMARY PROGRAMMING COORDINATOR: Carrol Fortune MD PCP: Masoud Khan MD HPI: Shahla Granados is a 69 y.o. old female here for hospital discharge [...] LV filling pattern and increased LA pressure. At the previous appointment she had switched to [facility]. Had been takingher medications as directed from discharge. Reported that she is trying to work on her diet including her salt consumption. She reported that she has dyspnea on exertion however she has that at baseline. Does use 2 L of oxygen as needed and through the night. She reports today for routine cardiac follow-up. She reports that she is doing well from a cardiac standpoint. She is still a bit more sedentary during the day than she would like, but with the warmer months is going to start trying to do more activity. Her breathing has improved slightly since herlast visit. She does report some slightly increased lower extremity edema. Otherwise she denies any chest pain, palpitations, dizziness, syncope/presyncope, PND orthopnea. Does have the stable/chronic dyspnea on exertion that she reports has improved slightly today. ACTIVE MEDICATIONS: Outpatient Medications Marked as Taking for the 10/30/24 encounter (Office Visit) with Satnam Garcia NP Medication Sig Dispense Refill Advair HFA 230-21 mcg/actuation inhaler Inhale 2 puffs by mouth 2 (two) times a day. albuterol 2.5 mg /3 mL (0.083 %) nebulizer solution Take 3 mL (2.5 mg total) by nebulization 4 (four) times a day if needed for wheezing or shortness of breath. 100 each 2 albuterol HFA (PROAIR HFA ; PROVENTIL HFA ; VENTOLIN HFA) 90 mcg/actuation inhaler Inhale 2 Puffs into the lungs every 4 hours as needed. ARIPiprazole (ABILIFY) 20 mg tablet Take 1 tablet (20 mg total) by mouth 1 (one) time each day. atorvastatin (LIPITOR) 40 mg tablet Take 1 tablet (40 mg total) by mouth 1 (one) time each day. 90 tablet 1 benztropine (COGENTIN) 1 mg tablet Take 1 tablet (1 mg total) by mouth 1 (one) time each day. empagliflozin (Jardiance) 10 mg tablet Take 1 tablet (10 mg total) by mouth 1 (one) time each day in the morning. 90 tablet 0 furosemide (LASIX) 20 mg tablet Take 1 tablet (20 mg total) by mouth 1 (one) time each day. 90 tablet 1 levothyroxine (SYNTHROID, LEVOTHROID) 112 mcg tablet Take 1 tablet (112 mcg total) by mouth See administration instructions. 1 tablet daily from Wednesday to Wednesday and 1.5 tablets on Wednesday 96 tablet1 magnesium oxide (MAG-OX) 400 mg (241.3 elemental magnesium) tablet Take 1 tablet (400 mg total) by mouth 1 (one) time each day. 90 tablet 1 metoprolol tartrate (LOPRESSOR) 100 mg tablet Take 1 tablet (100 mg total) by mouth 2 (two) times aday. paliperidone palmitate (Invega Sustenna) 234 mg/1.5 mL syringe Inject 1.5 mL (234 mg total) into the shoulder, thigh, or buttocks every 30 (thirty) days. rivaroxaban (Xarelto) 20 mg tablet Take 1 Tablet by mouth daily. sertraline (ZOLOFT) 100 mg tablet Take 1 Tab by mouth daily. PAST MEDICAL HISTORY: Patient Active Problem List [...] (CMS/HCC) Chronic diastolic (congestive) heart failure (CMS/HCC) Hypokalemia ALLERGIES: Allergies Allergen Reactions Other Seasonal Allergies SOCIAL HISTORY: Social History Tobacco Use Smoking status: Former Current packs/day: 0.00 Types: Cigarettes Quit date: 08/23/1989 Years since quittin.2 Smokeless tobacco: Never Tobacco comments: QUIT IN HER 30'S Substance Use Topics Alcohol use: No PHYSICAL EXAM: Vitals: 10/30/24 0926 Pulse: 61 SpO2: 94% Weight: 137 kg (302 lb 12.8 oz) Height: 1.6 m (63 ) Physical Exam Constitutional: General: She is not in acute distress. Appearance: Normal appearance. HENT: Head: Normocephalic and atraumatic. Right Ear: External ear normal. Left Ear: External ear normal. Nose: Nose normal. Eyes: Conjunctiva/sclera: Conjunctivae normal. Neck: Vascular: No carotid bruit. Cardiovascular: Rate and Rhythm: Normal rate. Rhythm irregular. Pulses: Normal pulses. Heart sounds: Normal heart sounds. No murmur heard. No friction rub. No gallop. Pulmonary: Effort: Pulmonary effort is normal. Breath sounds: Normal breath sounds. No wheezing, rhonchi or rales. Abdominal: General: There is no distension. Musculoskeletal: Cervical back: Neck supple. Right lower leg: Edema present. Left lower leg: Edema present. Skin: General: Skin is warm and dry. [...] 200 Q-T Interval 530 QTc 546 R Montezuma -31 T Montezuma 109 ECG Interpretation Ventricular-paced rhythm with frequent Premature ventricular complexes Abnormal ECG When compared with ECG of 16-JUN-2019 14:10, Electronic ventricular pacemaker has replaced Sinus rhythm Confirmed by Khris ENNIS JOHN ([id number]) on 09/04/2024 10:30:26 PM *Note: Due to a large number of results and/or encounters for the requested time period, some results have not been displayed. A complete set of results can be found in Results Review. TESTING: ASSESSMENT/PLAN: Assessment & Plan Sick sinus syndrome (CMS/HCC) Patient has pacemaker in. She is establishing care with our device clinic today. She is switching from [facility]. Will have her continue to do device check ins with her. Patient is predominantly V-paced. Coronary artery disease involving eklutna coronary artery of eklutna heart without angina pectoris Patient denies any anginal symptoms today. Continue on current medication regiment which includes metoprolol, statin. Chronic diastolic (congestive) heart failure (CMS/HCC) Patient appears mostly euvolemic on exam today. She is doing a good job watching her sodium consumption. Patient should check her weights daily. Could look to add in spironolactone in the future. Will update echocardiogram in a year. Paroxysmal atrial fibrillation (CMS/HCC) Paroxysmal atrial fibrillation. Patient is rate controlled on metoprolol, utilizing Xarelto for CVAprophylaxis. Patient denies any abnormal bleeding. Does have an elevated Faheem Vascor of 5. Continueon current medication regiment. Hypercholesterolemia Continue on current medication regimen of statin. Would like to update lipid panel. Would like her LDL below 70 Orders: Lipid panel; Future Essential hypertension, benign Well-controlled the appointment today. Continue on current medication regimen. Thank you for allowing us to participate in the care of this patient. The patient will follow up in2 months, sooner PRN. As per AHA guidelines and previously established plan of care by Dr. Carrol Fortune MD, we discussedthe following today: 1. Sick sinus syndrome (CMS/HCC) 2. Coronary artery disease involving eklutna coronary artery of eklutna heart without angina pectoris 3. Chronic diastolic (congestive) heart failure (CMS/HCC) 4. Paroxysmal atrial fibrillation (CMS/HCC) 5. Hypercholesterolemia 6. Essential hypertension, benign [facility] documented in this encounter Plan of Treatment Upcoming Encounters Date Type Department Care Team (Late st Contact Info) Description 11/13/2024 10:30 AM EDT Ancillary Procedure [facility] - [address] [place] [address] 01/02/2025 11:15 AM EDT Office Visit Adult Medicine [address] [phone] Masoud Khan MD [address] [place] [phone] 02/05/2025 9:10 AM EDT Office Visit [facility] - [facility] [address] [facility] [address] [place] [address] Satnam Garcia NP [address] [place] [address] Scheduled Orders Name Type Priority Associated Diagnoses Orde r Schedule Lipid panel Lab Routine Hypercholesterolemia Expected: 10/30/2024, Expires: 10/30/2025 documented as of this encounter Visit Diagnoses Diagnosis Sick sinus syndrome (CMS/HCC)- Primary Sinoatrial node dysfunction Coronary artery disease involving eklutna coronary artery of eklutna heart without angina pectoris Chronic diastolic (congestive) heart failure (CMS/HCC) Paroxysmal atrial fibrillation (CMS/HCC) Atrial fibrillation Hypercholesterolemia Pure hypercholesterolemia Essential hypertension, benign Encounter for adjustment or management of cardiac device documented in this encounter Discontinued Medications Medication Sig Discontinue Reason Start Date End Da te fluticasone furoate-vilanteroL (Breo Ellipta) 100-25 mcg/dose inhaler Inhale 1 puff by mouth 1 (one) time each day. Prescriber Discontinued 07/05/2024 10/30/2024 documented as of this encounter Historical Medications * This list may reflect changes made after this encounter. Advair HFA 230-21 mcg/actuation inhaler Inhale 2 puffs by mouth 2 (two) times a day. 10/23/2024 added in this encounter Care Teams Bullard Machine Operator Relationship Specialty Start Date End Date Masoud Khan MD [address] [place] [id number] PCP - General Internal Medicine 10/25/24 documented as of this encounter
--- OUTSIDE RECORDS SUMMARY | 2024-11-09 06:38 | XMS_ITS | Encounter Summary ---
Author Organization [facility] Address [address] [place] [address] Care Team Providers Care Fire Prevention Chief Name Role Phone Masoud Khan MD Primary Care Provider [phone] Encounter Details Date Type Department Care Team ([facility] Contact Info) Description 09/22/2024 Telephone Adult [facility] [address] [place] [address] Masoud Khan MD [address] [place] [id number] Social History Tobacco Use Types Packs/Day Years [...] Upcoming Encounters Date Type Department Care Team ([facility] Contact Info) Description 11/13/2024 10:30 AM EDT Ancillary Procedure [facility] - [facility] [address] [facility] [address] [place] [address] 01/02/2025 11:15 AM EDT Office Visit Adult [facility] [address] [place], [place] [phone] Masoud Khan MD [address] [place] [address] 02/05/2025 9:10 AM EDT Office Visit [facility] - [facility] [address] [facility] [address] [place] [address] Satnam Garcia NP [address] [place] [address] documented as of this encounter Visit Diagnoses Not on filedocumented in this encounter Care Teams Fire Prevention Chief Relationship Specialty Start Date End Date Masoud Khan MD [address] [place] [address] PCP - General Internal Medicine 10/31/21 10/24/24 documented as of this encounter
--- OUTSIDE RECORDS SUMMARY | 2024-11-09 06:38 | XMS_ITS | Encounter Summary ---
Author Organization [facility] Address [address] [place] [address] Care Team Providers Care Appetizer Packer Name Role Phone Masoud Khan MD Primary Care Provider [phone] Encounter Details Date Type Department Care Team ([facility] st Contact Info) Description 09/28/2024 Telephone [facility] - [facility] [address] [facility] [address] [place] [address] Julia Garcia NP [address] [place] [address] Social History Tobacco Use Types Packs/Day Years [...] as of this encounter Progress Notes * Najma Alcazar RN - 09/28/2024 1:57 PM EST Spoke with patient and she was unaware to check BP at home and to c/b in ~ 10 days. She will check BP at least 2 hrs after a.m. meds and will call. She was unaware of labs ordered for BNP , BMP and will get donew 10/02/24 when she is at [place]. Lab orders were placed by JULIA at [facility]. * Court Ireland - 09/28/2024 10:32 AM EST Patient left message with answering service. Patient needs medication and labwork, has pacemaker. No further details included from service. Please call patient at [phone] documented in this encounter Plan of Treatment Upcoming Encounters Date Type Department Care Team (Late st Contact Info) Description 11/13/2024 10:30 AM EDT Ancillary Procedure [facility] [place] - [facility] [address] [address] 01/02/2025 11:15 AM EDT Office Visit Adult Medicine [address] [address] Masoud Khan MD [address] [place] [address] 02/05/2025 9:10 AM EDT Office Visit [facility] - [facility] [address] [facility] [address] [place] [address] Julia Garcia NP [address] [place] [address] documented as of this encounter Visit Diagnoses Not on filedocumented in this encounter Care Teams Appetizer Packer Relationship Specialty Start Date End Date Masoud Khan MD [address] [place] [id number] PCP - General Internal Medicine 10/25/24 documented as of this encounter
--- OUTSIDE RECORDS SUMMARY | 2024-11-09 06:38 | XMS_ITS | Encounter Summary ---
Author Organization [facility] Address [address] [place] [address] Care Team Providers Care Physician Industrial Name Role Phone Masoud Khan MD Primary Care Provider [phone] Reason for Visit * Reason Onset Date Comments triage 09/28/2024 Encounter Details Date Type Department Care Team ([facility] st Contact Info) Description 09/28/2024 Telephone Adult Medicine [facility] [address] [place] [phone] Sierra Adan [place] triage Social History Tobacco Use Types Packs/Day Years [...] as of this encounter Progress Notes * Masoud Khan MD - 09/28/2024 7:23 PM EST Somay, noted. * Lisa Penaloza RN - 09/28/2024 1:55 PM EST Spoke with [facility] she states pt. Was asymptomatic , no cp , no additional sob 02 sat 96% on 2 liters ,no headache.or fever She does not have previous vital reading available .Pt. Has been using cough syrup which may be a factor in her blood pressure . I inquired if she could check BP tomorrow prior to pt.'s apt. She stated she will and let us know the readings will send this to pcp for approval * Lisa Penaloza RN - 09/28/2024 12:51 PM EST Nurse is with a different pt. Requesting a call back in 1/2 hr. Called number listed for pt. And daughter Glo answered who is not with pt. She stated he mother has been using cough syrup but believes it was given to hr by the hospital she was unable to answer some other specific questions will reach back out to nurse * Michael Randhawa LPN - 09/28/2024 11:57 AM EST Please triage see message from [facility] * Sierra Adan MA - 09/28/2024 10:32 AM EST FRANCISCO Edwards with [facility] called-she saw pt today post hospital stay. Her BP readings were high- 170/93, 164/91, 155/74 documented in this encounter Plan of Treatment Upcoming Encounters Date Type Department Care Team (Late st Contact Info) Description 11/13/2024 10:30 AM EDT Ancillary Procedure [facility] - [facility] [address] [facility] [address] [place] [address] 01/02/2025 11:15 AM EDT Office Visit Adult Medicine [address] [phone] Masoud Khan MD [address] [place] [address] 02/05/2025 9:10 AM EDT Office Visit [facility] - [facility] [address] [facility] [address] [place] [address] Satnam Garcia NP [address] [place] [address] documented as of this encounter Visit Diagnoses Not on filedocumented in this encounter Care Teams Physician Industrial Relationship Specialty Start Date End Date Masoud Khan MD [address] [place] [phone] PCP - General Internal Medicine 10/25/24 documented as of this encounter
--- OUTSIDE RECORDS SUMMARY | 2024-11-09 06:38 | XMS_ITS | Clinical Summary ---
Author Organization [facility] Address [address] [place] [address] [place] [address] Phone Care Team Providers Care Poultry Scalder Name Role Phone Masoud Khan MD Primary Care Provider Allergies Active Allergy Reactions Criticality Noted Date Comments Other 02/19/2016 Seasonal Allergies Medications albuterol HFA (PROAIR HFA ; PROVENTIL HFA ; VENTOLIN HFA) 90 mcg/actuation inhaler Inhale 2 Puffs into the lungs every 4 hours as needed. 022 Active benztropine (COGENTIN) 1 mg tablet Take 1 tablet (1 mg total) by mouth 1 (one) time each day. 019 Active paliperidone palmitate (Invega Sustenna) 234 mg/1.5 mL syringe Inject 1.5 mL (234 mg total) into the shoulder, thigh, or buttocks every 30 (thirty) days. 019 Active rivaroxaban (Xarelto) 20 mg tablet Take 1 Tablet by mouth daily. 023 Active sertraline (ZOLOFT) 100 mg tablet Take 1 Tab by mouth daily. Active atorvastatin (LIPITOR) 40 mg tablet Take 1 tablet (40 mg total) by mouth 1 (one) time each day. 90 tablet 1 024 Active levothyroxine (SYNTHROID, LEVOTHROID) 112 mcg tablet Take 1 tablet (112 mcg total) by mouth See administration instructions. 1 tablet daily from Wednesday to Wednesday and 1.5 tablets on Micah 96 tablet 1 024 Active ARIPiprazole (ABILIFY) 20 mg tablet Take 1 tablet (20 mg total) by mouth 1 (one) time each day. Active metoprolol tartrate (LOPRESSOR) 100 mg tablet Take 1 tablet (100 mg total) by mouth 2 (two) times a day. Active albuterol 2.5 mg /3 mL (0.083 %) nebulizer solutionIndicat ions:Moderate persistent asthma with exacerbation Take 3 mL (2.5 mg total) by nebulization 4 (four) times a day if needed for wheezing or shortness of breath. 100 each 2 025 Active magnesium oxide (MAG-OX) 400 mg (241.3 elemental magnesium) tablet Take 1 tablet (400 mg total) by mouth 1 (one) time each day. 90 tablet 1 025 Active empagliflozin (Jardiance) 10 mg tablet Take 1 tablet (10 mg total) by mouth 1 (one) time each day in the morning. 90 tablet 025 Active Advair HFA 230-21 mcg/actuation inhaler Inhale 2 puffs by mouth 2 (two) times a day. 025 Active furosemide (LASIX) 20 mg tablet Take 1 tablet (20 mg total) by mouth 1 (one) time each day. 90 tablet 1 025 Active nystatin (MYCOSTATIN) cream Apply small amount twice a day to affected area 024 2024 fluticasone furoate-vilante roL (Breo Ellipta) 100-25 mcg/dose inhaler Inhale 1 puff by mouth 1 (one) time each day. 1 each 4 024 2024 Discontinued(P rescriber Discontinued) furosemide (LASIX) 20 mg tablet Take 1 tablet (20 mg total) by mouth 1 (one) time each day. 90 tablet 1 024 2024 Discontinued Active Problems Problem Noted Date Diagnosed Date Hypokalemia 10/02/2024 Chronic diastolic (congestive) heart failure Assessment & Plan (10/30/2024 11:35 AM EDT): Patient appears mostly euvolemic on exam today. She is doing a good job watching her sodium consumption. Patient should check her weights daily. Could look to add in spironolactone in the future. Will update echocardiogram in a year. Assessment & Plan (09/04/2024 4:48 PM EST): [...] Paroxysmal atrial fibrillation 07/26/2020 Assessment & Plan (10/30/2024 11:35 AM EDT): Paroxysmal atrial fibrillation. Patient is rate controlled on metoprolol, utilizing Xarelto for CVA prophylaxis. Patient denies any abnormal bleeding. Does have an elevated Faheem Vascor of 5. Continue on current medication regiment. Assessment & Plan (09/04/2024 4:48 PM EST): Patient is in A-fib today V paced. Patient does not seem to be perceptive of when she is in atrial fibrillation as she reports she does not have any symptoms. Will look to discontinue the amiodarone. On rate control with metoprolol, and utilizing Xarelto. Patient denies any abnormal bleeding. She has a CNH5BB1-KBUd score of 5, and should remain anticoagulated. Orders: Ambulatory referral to Cardiology ECG 12 lead Basic metabolic panel; Future CAD (coronary artery disease) 04/08/2020 Overview (06/30/2024): Follows with cardiology ([facility]) had a nuclear stress test that showed distal septal ischemia. Assessment & Plan (10/30/2024 11:35 AM EDT): Patient denies any anginal symptoms today. Continue on current medication regiment which includes metoprolol, statin. Sick sinus syndrome 02/13/2020 Assessment & Plan (10/30/2024 11:35 AM EDT): Patient has pacemaker in. She is establishing care with our device clinic today. She is switching from [place]. Will have her continue to do device check ins with her. Patient is predominantly V-paced. Atrial flutter 04/25/2019 Overview (06/30/2024): With RVR follows with cardiololgy Overactive bladder 09/26/2013 MARGOTH on CPAP 10/02/2010 Overview (06/30/2024): Non compliant with CPAP (October 2021) Schizoaffective disorder 05/23/2010 Essential hypertension, benign 01/06/2010 Assessment & Plan (10/30/2024 11:35 AM EDT): Well-controlled the appointment today. Continue on current medication regimen. Assessment & Plan (09/04/2024 4:48 PM EST): [...] 12/09/2009 Anxiety 05/29/2009 Depression 05/29/2009 Hypercholesterolemia 05/29/2009 Assessment & Plan (10/30/2024 11:35 AM EDT): Continue on current medication regimen of statin. Would like to update lipid panel. Would like her LDL below 70 Orders: Lipid panel; Future Hypothyroid 05/29/2009 Osteoarthritis 05/29/2009 Encounters Date Type Department Care Team Description 11/08/2024 Telephone Adult Medicine [address] [phone] Masoud Khan MD Medication Problem 11/07/2024 9:30 AM EDT Ancillary Procedure [facility] Cardiology [facility] [address] [address] [place] [address] Arrived 11/07/2024 Telephone Adult Medicine [address] [phone] Masoud Khan MD Medication Problem 11/07/2024 Telephone [facility] [address] [place] [phone] Marcela Lea PA 11/03/2024 Telephone Adult [address] [phone] Masoud Khan MD Fitting for DME 10/30/2024 9:10 AM EDT Office Visit [facility] [address] [facility] 154 [place] [phone] Satnam Garcia NP Sick sinus syndrome (CMS/HCC) (Primary Dx); Coronary artery disease involving northern cheyenne coronary artery of northern che[place]enne heart without angina pectoris; Chronic diastolic (congestive) heart failure (CMS/HCC); Paroxysmal atrial fibrillation (CMS/HCC); Hypercholesterolemia; Essential hypertension, benign 10/30/2024 Telephone [facility] [address] [place] [address] Satnam Garcia NP 10/10/2024 Telephone Adult Medicine [address] [phone] Masoud Khan MD provider call back 10/03/2024 9:05 AM EST Lab Draw [address] Prediabetes; Acquired hypothyroidism; Hypokalemia; Chronic diastolic (congestive) heart failure (CMS/HCC) 10/02/2024 9:30 AM EST Office Visit Adult [address] [phone] Masoud Khan MD Hospital discharge follow-up (Primary Dx); Chronic respiratory failure with hypoxia (CMS/HCC); Moderate persistent asthma with exacerbation; MARGOTH on CPAP; Hypokalemia; Chronic diastolic (congestive) heart failure (CMS/HCC); Paroxysmal atrial fibrillation (CMS/HCC); Essential hypertension, benign; Coronary artery disease involving northern che[place] coronary artery of northern che[place] heart without angina pectoris; Acquired hypothyroidism; Schizoaffective disorder, unspecified type (CMS/HCC); Prediabetes; Encounter for screening mammogram for malignant neoplasm of breast; Need for vaccination against Streptococcus pneumoniae 09/28/2024 Telephone Adult Medicine [address] [phone] Sierra Adan [place] triage 09/28/[address] [facility] Cardiology [facility] [address] [phone] Satnam Garcia NP 09/25/2024 Telephone Adult Medicine [address] [phone] Masoud Khan MD Flu Symptoms 09/22/2024 Telephone Adult Medicine [address] [phone] Masoud Khan MD Cough 09/22/2024 Telephone Adult Medicine [address] [phone] Masoud Khan MD 09/21/2024 Telephone Adult Medicine [address] [phone] Masoud Khan MD Fever; Sore Throat 09/07/[address] [facility] Cardiology [facility] 101 300 [facility] 101 [place] [phone] Satnam Garcia NP d/c amiodarone 09/04/2024 1:10 PM EST Office Visit [facility]iology [facility] 154 300 [facility] 154 [place] [phone] Satnam Garcia NP Hospital discharge follow-up; Chronic diastolic (congestive) heart failure (CMS/HCC); Paroxysmal atrial fibrillation (CMS/HCC); Essential hypertension, benign; MARGOTH on CPAP; Coronary artery disease involving northern che[place] coronary artery of northern che[place]enne heart without angina pectoris; Chronic respiratory failure with hypoxia (CMS/HCC); Moderate persistent asthma without complication; Acquired hypothyroidism; Schizoaffective disorder, unspecified type (CMS/HCC) 08/29/[address] [facility] 154 300 [facility] 154 [place] [phone] Satnam Garcia NP Med Refill (Furosemide, Amiodarone ) 08/18/2024 Billing Patient Not Present [address] [phone] Masoud Khan MD Acute and chronic respiratory [...] comorbidity present; Body mass index 50.0-59.9, adult (CMS/HCC); Anemia, unspecified type; Hyperlipidemia, unspecified hyperlipidemia type; Presence of cardiac pacemaker; Dependence on supplemental oxygen; FPC (current) use of anticoagulants; FPC (current) use of oral hypoglycemic drugs; Other terminal manager (current) drug therapy; roasterman (current) use of inhaled steroids; Problems related to living alone 08/17/[address] [phone] Masoud Khan MD Shoulder Pain (Right Shoulder) from Last 3 Months Immunizations Name Administration Dates Next Due Influenza trivalent, 0.5mL ( Fluad) 65yo and older 04/30/2022,05/13/2021 Influenza trivalent, 0.5mL ( Fluzone High-dose) 65yo and older 06/27/2024,04/30/2022,05/13/2021 Pneumococcal conjugate 20 va lent (Prevnar 20, PCV 20) 2mo and older 10/02/2024 Surgical History Surgery Date Site/Laterality Comments OTHER SURGICAL HISTORY PROCEDURE: CT SALPINGO-OOPHORECTOMY COMPL/PRTL UNI/BI SPX; COMMENT: age 20's removed ROV, cyst OTHER SURGICAL HISTORY PROCEDURE: CT EXCISION PILONIDAL CYST/SINUS COMPLICATED OTHER SURGICAL HISTORY 02/15/2017 Right PROCEDURE: CT LAPAROSCOPY SURG PARTIAL NEPHRECTOMY; COMMENT: Dr. Patterson Medical History Medical History Date Comments Osteoarthritis 05/29/2009 DX:Osteoarthriti s Hypothyroid 05/29/2009 DX:Hypothyroid Hypercholesterolemia 05/29/2009 DX:Hypercho lesterolemia Anxiety 05/29/2009 DX:Anxiety Depression 05/29/2009 DX:Depression Schizoaffective disorder ([facility]) DX:Schizoaffective disorder ([facility]); COMMENT: dr Renetta muller [facility] Angiomyolipoma of kidney DX:Any omyolipoma of kidney Morbid obesity with BMI of 4 5.0-49.9, adult ([facility]) 11/16/2013 DX:Morbid obesity with BMI o f 45.0-49.9, adult ([facility]); COMMENT: BMI 55.8 on 10/16/13. Diastolic dysfunction [...] on file Sexual Orientation Not on file Obstetrics History Last Filed Vital Signs Vital Sign Reading Time Taken Comments Blood Pressure 138/78 10/02/2024 9:31 AM EST Pulse 61 10/30/2024 9:26 AM EDT Temperature 36.6 ??C (97.8 ??F) 10/02/2024 9:31 AM ES T Respiratory Rate 20 10/02/2024 9:31 AM EST Oxygen Saturation 94% 10/30/2024 9:26 AM EDT Inhaled Oxygen Concentration - - Weight 137 kg (302 lb 12.8 oz) 10/30/2024 9:26 A M EDT Height 160 cm (5' 3 ) 10/30/2024 9:26 AM EDT Body Mass Index 53.64 10/30/2024 9:26 AM EDT Plan of Treatment Upcoming Encounters Date Type Department Care Team (Late st Contact Info) Description 11/13/2024 10:30 AM EDT Ancillary Procedure [facility] 154 300 [facility] 154 [place] [address] 01/02/2025 11:15 AM EDT Office Visit Adult Medicine [address] [phone] Masoud Khan MD [address] [place] [phone] 02/05/2025 9:10 AM EDT Office Visit [facility] 154 300 [facility] 154 [place] [phone] Satnam Garcia NP [address] [place] [address] Health Maintenance Due Date Last Done Comments DTaP,Tdap,and Td Vaccines (1 - Tdap) 1974 [...] 05/28/2022, 01/19 Hypertension/CHF/CAD Annual BMP Blood Test 10/03/2025 10/03/2024, 07/10/2024, 10/31/2021 Cholesterol Screening (Lipid Panel) 10/31/2026 10/31/2021 Colorectal Cancer Screening: Colonoscopy 05/30/2029 05/30/2019 Osteoporosis Screening (Bone Density Screening) 10/07/2031 10/07/2021 Hepatitis C Screening Completed 06/27/2013 Influenza Vaccine Completed 06/27/2024, , 04/30/2022, Additional history exists Pneumococcal Vaccine: 50+ Years Completed 10/02/2024 HIB Vaccines Aged Out No longer eligi [...] patient's age to complete this topic Meningococcal B Vacine Aged Out No lo nger eligible based on patient's age to complete this topic RSV Immunization Patients Under 20 months Aged Out No longer eligible based on patient's age to complete this topic Varicella Vaccines Aged Out No longer eligible based on patient's age to complete this topic Medical Devices Implanted Type Area Head Of Marketing Analytics Device Identifier Shelf Expiration Date Model / Serial / Lot Abbt-Renay 2272 Assurity Mri(Tm) [id number] Implanted: (Quantity not on file) Cardiac Pacemaker [facility] 2272 ASSURITY MRI(TM) / [id number] / Procedures Procedure Name Priority Date/Time Associated Diagnosis Comments CARDIAC DEVICE CHECK- REMOTE- MURJ Routine 11/07/2024 9:27 AM EDT TRIIODOTHYRONINE FREE Routine 10/03/2024 9:14 AM EST Acquired hypothyroidism FREE THYROXINE WITH REFLEX TO FREE TRIIODOTHYRONINE Routine 10/03/2024 9:14 AM EST Acquired hypothyroidism BASIC METABOLIC PANEL Routine 10/03/2024 9:14 AM EST Hypokalemia Chronic diastolic (congestive) heart failure (CMS/HCC) MAGNESIUM Routine 10/03/2024 9:14 AM EST Hypokalemia Chronic diastolic (congestive) heart failure (CMS/HCC) THYROID STIMULATING HORMONE WITH REFLEX TO FREE T4 AND FREE T3 Routine 10/03/2024 9:14 AM EST Acquired hypothyroidism HEMOGLOBIN A1C Routine 10/03/2024 9:14 AM EST Prediabetes ECG 12-LEAD Routine 09/04/2024 4:49 PM EST Paroxysmal atrial fibrillation (CMS/HCC) SCREENING MAMMOGRAPHY BI 2-VIEW BREAST INC CAD Routine 05/28/2022 1:58 PM EDT Encounter for gynecological examination (general) (routine) without abnormal findings LIPID PANEL Routine 10/31/2021 DXA BONE DENSITY STUDY 1+ SITS AXIAL SKEL Routine 10/07/2021 11:30 AM EST Encounter for screening for osteoporosis HM COLONOSCOPY Routine 05/30/2019 HEPATITIS C SCREENING Routine 06/27/2013 from Last 3 Months or Most Recently Relevant to Health Maintenance Results * Cardiac device check - Remote- MURJ (11/07/2024 9:27 AM EDT) Date Time Interrogation Session [id number] CV DEVICE CHECK Type Interrogation Session Remote Scheduled CV DEVICE CHECK Implantable Pulse Generator Head Of Marketing Analytics [facility] CV DEVICE CHECK Implantable Pulse Generator Type IPG CV DEVICE CHECK Implantable Pulse Generator Model 2272 Assurity MRI(TM) CV DEVICE CHECK Implantable Pulse Generator Serial Number [id number] CV DEVICE CHECK Implantable Pulse Generator Implant Date [id number] CV DEVICE CHECK Battery Remaining Percentage 48.00 CV DEVICE CHECK Battery Remaining Longevity 43.0 CV DEVICE CHECK Battery Voltage 2.950 CV D EVICE CHECK Battery DEVELOPER ARCHITECT Trigger 2.600 CV DEVICE CHECK Battery Status Middle of Service CV DEVICE CHECK Santi Statistic RA Percent Paced 67.00 CV DEVICE CHECK Santi Statistic RV Percent Paced 18.00 CV DEVICE CHECK Atrial Tachy Statistic AT/AF [employer] Percent 25.00 CV DEVICE CHECK Lead Channel Sensing Intrinsic Amplitude 2.500 CV DEVICE CHECK Lead Channel Setting Sensing Sensitivity 0.50 CV DEVICE CHECK Lead Channel Impedance Value 260 CV DEVICE CHECK Lead Channel Setting Pacing Amplitude 2.500 CV DEVICE CHECK Lead Channel Setting Pacing Pulse Width 0.5 CV DEVICE CHECK Lead Channel Sensing Intrinsic Amplitude 7.700 CV DEVICE CHECK Lead Channel Setting Sensing Sensitivity 2.00 CV DEVICE CHECK Lead Channel Impedance Value 260 CV DEVICE CHECK Lead Channel Pacing Threshold Amplitude 0.750 CV DEVICE CHECK Lead Channel Pacing Threshold Pulse Width 0.5 CV DEVICE CHECK Lead Channel RV Pacing Threshold Date 2024-10-31 CV DEVICE CHECK Lead Channel Setting Pacing Amplitude 1.000 CV DEVICE CHECK Lead Channel Setting Pacing Pulse Width 0.5 CV DEVICE CHECK Santi Setting Mode (NBG Code) DDDR CV DEVICE CHECK Santi Setting Lower Rate Limit 60 CV DEVICE CHECK Santi Setting AT Mode Switch Rate 180 CV DEVICE CHECK Santi Setting Maximum Tracking Rate 130 CV DEVICE CHECK Santi Setting Maximum Sensor Rate 120 CV DEVICE CHECK Santi Setting PAV Delay 225 CV DEVICE CHECK Santi Setting VESTA Delay 200 CV DEVICE CHECK Date of Service 2024-11-30 CV DEVICE CHECK Anatomical Region Laterality Modality Device Interroga tion 10/31/2024 5:00 AM EDT Impressions 11/07/2024 9:26 AM EDT Normal Remote: With Events Re-establishing Device Care with our practice * Normal Device Function * Events or Alerts: Since 10/31/24 ~ 2 PAF / Brief / Longest was 28 seconds meds include Xarelto * Battery: Battery is at 48%, 3.58 yrs * Sensing, impedance and thresholds reviewed * Programmed parameters reviewed * Presenting rhythm reviewed * Heart Rate Histograms reviewed Additional Notes: Atrial Noise noted on remote follow-up. ??Not sure if she was every worked up for this? Narrative Procedure Note Marcela Lea PA - 11/07/2024 IMPRESSION: Normal Remote: With Events Re-establishing Device Care with our practice * Normal Device Function * Events or Alerts: Since 10/31/24 ~ 2 PAF / Brief / Longest was 28seconds meds include Xarelto * Battery: Battery is at 48%, 3.58 yrs * Sensing, impedance and thresholds reviewed * Programmed parameters reviewed * Presenting rhythm reviewed * Heart Rate Histograms reviewed Additional Notes: Atrial Noise noted on remote follow-up. Not sure ifshe was every worked up for this? Marcela RIBERIO CV IMPLANTABLE CARDIAC DEVICE CT OCEDURES Final Result * (ABNORMAL) Thyroid stimulating hormone with reflex to free t4 and free t3 (10/03/2024 9:14 AM EST) [facility] TSH 5.06(H) 0.40 - 4.00 mcIU/mL LAB CHEMISTRY METHOD 10/03/2024 1:01 PM EST [facility] Blood Venous blood specimen / Unknown Venipuncture / Unknown 10/03/2024 9:14 AM EST 10/03/2024 9:14 AM EST us Masoud Khan MD LAB BLOOD ORDERABLES Final Result [facility] [address] [place] [address], [place] [phone] * Free thyroxine with reflex to free triiodothyronine (10/03/2024 9:14 AM EST) Free T4 1.44 0.70 - 1.80 ng/dL LAB CHEMISTRY METHOD 10/03/2024 1:26 PM EST [facility] Blood Venous blood specimen / Unknown Venipuncture / Unknown 10/03/2024 9:14 AM EST 10/03/2024 9:14 AM EST Masoud Khan MD LAB BLOOD ORDERABLES Final Result Performing Organization Address City/[facility]/ZIP Co de Phone Number [facility] [address] [place] [address], [place] [phone] * Triiodothyronine free (10/03/2024 9:14 AM EST) Pathologist [facility] T3, Free 254 230 - 420 pcg/dL LAB CHEMISTRY METHOD 10/03/2024 1:52 PM EST [facility] Blood Venous blood specimen / Unknown Venipuncture / Unknown 10/03/2024 9:14 AM EST 10/03/2024 9:14 AM EST Masoud Khan MD LAB BLOOD ORDERABLES Final Result Performing Organization Address [facility]/ZIP Co de Phone Number [facility] [address] [place] [address], [place] [phone] * Magnesium (10/03/2024 9:14 AM EST) [facility] Magnesium 2.1 1.9 - 2.6 mg/dL LAB CHEMISTRY METHOD 10/03/2024 12:55 PM EST [facility] Blood Venous blood specimen / Unknown Venipuncture / Unknown 10/03/2024 9:14 AM EST 10/03/2024 9:14 AM EST Masoud Khan MD LAB BLOOD ORDERABLES Final Result [facility] [address] [place] [address], [place] [phone] * Hemoglobin A1c (10/03/2024 9:14 AM EST) [facility] Hemoglobin A1C 5.9 <6.5 % LAB CHEMISTRY METHOD 10/03/2024 1:14 PM [facility] Mean Bld Glu Estim. 123 mg/dL LAB CHEMISTRY METHOD 10/03/2024 1:14 PM [facility] Blood Venous blood specimen / Unknown Venipuncture / Unknown 10/03/2024 9:14 AM EST 10/03/2024 9:14 AM EST Masoud Khan MD LAB BLOOD ORDERABLES Final Result [facility] [address] [place] [address], * (ABNORMAL) Basic metabolic panel (10/03/2024 9:14 AM EST) [facility] Sodium 140 133 - 145 mmol/L LAB CHEMISTRY METHOD 10/03/2024 12:57 PM [facility] Potassium 4.2 3.5 - 5.5 mmol/L LAB CHEMISTRY METHOD 10/03/2024 12:57 PM [facility] Chloride 102 96 - 110 mmol/L LAB CHEMISTRY METHOD 10/03/2024 12:57 PM [facility] CO2 34(H) 21 - 32 mmol/L LAB CHEMISTRY METHOD 10/03/2024 12:57 PM [facility] Anion Gap 4 3 - 11 LAB CHEMISTRY METHOD 10/03/2024 12:57 PM [facility] Glucose 97 70 - 100 mg/dL LAB CHEMISTRY METHOD 10/03/2024 12:57 PM [facility] BUN 22 5 - 25 mg/dL LAB CHEMISTRY METHOD 10/03/2024 12:57 PM [facility] Creatinine 0.80 0.50 - 1.10 mg/dL LAB CHEMISTRY METHOD 10/03/2024 12:57 PM EST [facility] eGFR 80 >=60 mL/min/1. 73m2 LAB CHEMISTRY METHOD 10/03/2024 12:57 PM EST [facility] Comment:Calculation based on the??Chronic Kidney Disease Epidemiology Collaboration (CKD-EPI) equation refit??without adjustment for race. BUN/Creatinine Ratio 27.5 LAB CHEMISTRY METHOD 10/03/2024 12:57 PM EST [facility] Calcium 9.3 8.5 - 10.5 mg/dL LAB CHEMISTRY METHOD 10/03/2024 12:57 PM EST [facility] Blood Venous blood specimen / Unknown Venipuncture / Unknown 10/03/2024 9:14 AM EST 10/03/2024 9:14 AM EST Masoud Khan MD LAB BLOOD ORDERABLES Final Result [facility] [address] [place] [address], [place] [phone] * ECG 12 lead (09/04/2024 4:49 PM EST) Ventricular Rate ECG 64 BPM GEMUSE Atrial Rate 43 BPM GEMUSE QRS Duration 200 ms GEMUSE Q-T Interval 530 ms GEMUSE QTc 546 ms GEMUSE R [place] -31 degrees GEMUSE T [place] 109 degrees GEMUSE ECG Interpretation Ventricular-pa jose miguel rhythm with frequent Premature ventricular complexes Abnormal ECG When compared with ECG of 16-JUN-2019 14:10, Electronic ventricular pacemaker has replaced Sinus rhythm Confirmed by Khris ENNIS, GARETT ([id number]) on 09/04/2024 10:30:26 PM GEMUSE 09/04/2024 1:10 PM EST 09/04/2024 10:30 PM EST Satnam Jose CUSTOMER CARE MANAGER ECG ORDERABLES Edited Result - Final GEMUSE * SCREENING MAMMOGRAPHY BI 2-VIEW BREAST INC [...] recommended Masoud Khan MD IMG XR PROCEDURES Final Res ult * (ABNORMAL) Lipid panel (10/31/2021) LDL/HDL Ratio 4 Triglycerides 200(A) 0 - 150 mg/dL Cholesterol 156 0 - 200 mg/dL HDL 45 >=40 mg/dL LDL Cholesterol 71 0 - 100 mg/dL Blood Venous blood specimen / Unknown Historical Provider LAB BLOOD ORDERABLES Marilee l Result * DXA BONE DENSITY STUDY 1+ SITS AXIAL SKEL (10/07/2021 11:30 AM EST) Anatomical Region Laterality Modality Bone Densitometr y 09/02/2021 1:37 PM EST Narrative 10/07/2021 5:21 PM EST Clinical history: menopausal/postmenopausal disorder Scans of the lumbar spine and hips were performed on a [employer] fan beam bone densitometer. ? Bone mineral [...] spine and hips were performed on a [employer] beam bone densitometer. Bone mineral density measurements [...] osteoporosis < -2.5 with fractures Tano RIBEIRO IM DXA PROCEDURES Final Result * Colonoscopy (05/30/2019) [facility] Colonoscopy No Interpretation , Abstracted Anatomical Region Laterality Modality Other Historical Provider HEALTH MAINTENANCE Final Result * Hepatitis C Screening (06/27/2013) [facility] Hepatitis C Screening Abstracted Historical Provider HEALTH MAINTENANCE Final Result from Last 3 Months or Most Recently Relevant to Health Maintenance Insurance MEDICARE MEDICAID - [place] Care Teams Poultry Scalder Relationship Specialty Start Date End Date Masoud Khan MD [address] [place] [address] PCP - General Internal Medicine 10/25/24
--- OUTSIDE RECORDS SUMMARY | 2024-11-09 06:38 | XMS_ITS | Encounter Summary ---
Author Organization [facility] [place] [address] Care Team Providers Care Curator Zoological Museum Name Role Phone Masoud Khan MD Primary Care Provider [phone] Encounter Details Date Type Department Care Team (Late st Contact Info) Description 11/07/2024 Telephone [facility] - [facility] [address] [facility] [address] [place] [phone] Marcela Lea PA [address] [place] [address] Social History Tobacco Use Types Packs/Day Years [...] as of this encounter Progress Notes * Barby Kaminski MA - 11/07/2024 11:11 AM EDT See above but I am pretty sure it was [facility] where she came from * QUINTIN Lutz - 11/07/2024 9:21 AM EDT See MURJ encounter titled Ancillary Procedure, report may be found under media, dated: Patient not device dependent noted atrial ld noise She was a prior [facility] patient new to us is her anyway to obtain her old records from device or office notes to see if this was ever addressed? At next device check 11-13-24 can you please see if atrial lead noise is reproducible by provocativemoves and document documented in this encounter Plan of Treatment Upcoming Encounters Date Type Department Care Team (Late st Contact Info) Description 11/13/2024 10:30 AM EDT Ancillary Procedure [facility] [address] 300 [facility] 154 [place] [address] 01/02/2025 11:15 AM EDT Office Visit Adult Medicine [address] [address] Masoud Khan MD [address] [place] [address] 02/05/2025 9:10 AM EDT Office Visit [facility] - [facility] [address] 300 [facility] 154 [place] [address] Satnam Garcia NP 300 [place] [address] documented as of this encounter Visit Diagnoses Not on filedocumented in this encounter Care Teams Curator Zoological Museum Relationship Specialty Start Date End Date Masoud Khan MD [address] [place] [address] PCP - General Internal Medicine 10/25/24 documented as of this encounter
--- OUTSIDE RECORDS SUMMARY | 2024-11-09 06:38 | XMS_ITS | Encounter Summary ---
Author Organization [facility] Address [address] [place] [address] Care Team Providers Care System Support Administrator Name Role Phone Masoud Khan MD Primary Care Provider [phone] Reason for Visit * Reason Onset Date Comments Medication Problem 11/08/2024 Encounter Details Date Type Department Care Team ([facility] st Contact Info) Description 11/08/2024 Telephone Adult [facility] [address] [place] [phone] Masoud Khan MD [address] [place], [place] [phone] Medication Problem Social History Tobacco Use Types Packs/Day Years [...] as of this encounter Progress Notes * Sherwin Garland - 11/08/2024 9:16 AM EDT Medication Problem: What is the name of the medication patient is having a problem with?: albuterol 2.5 mg /3 mL (0.083%) nebulizer solution What is the problem?: The patient has not received this medication. Patient states the doctor needsto call her insurance company to appeal the denial. She called her pharmacy today and they told herto tell her doctor to call Marybel [phone]. She is not sure if this is a prior auth issue? Who is calling about the problem? : The patient Is this a NEW medication?: yes How long has the patient been taking this medication? Was prescribed in the hospital. Who prescribed this medication for the patient? :Erin Who is patients PCP?: Masoud Khan MD Payor: MEDICARE / Plan: MEDICARE PART A & B / Product Type: Medicare / [facility] calling and requesting to talk to nurse about medication , states they can fill it but has to have questions answered first documented in this encounter Plan of Treatment Upcoming Encounters Date Type Department Care Team (Late st Contact Info) Description 11/13/2024 10:30 AM EDT Ancillary Procedure [facility]iology [facility] [address] [phone] 01/02/2025 11:15 AM EDT Office Visit Adult Medicine [address] [phone] Masoud Khan MD [address] [place] [address] 02/05/2025 9:10 AM EDT Office Visit [facility]iology [facility] [address] [phone] Satnam Garcia NP 300 [place] [address] documented as of this encounter Visit Diagnoses Not on filedocumented in this encounter Care Teams System Support Administrator Relationship Specialty Start Date End Date Masoud Khan MD [address] [place] [address] PCP - General Internal Medicine 10/25/24 documented as of this encounter
--- OUTSIDE RECORDS SUMMARY | 2024-11-09 06:38 | XMS_ITS | Encounter Summary ---
Author Organization [facility] [place] [address] Care Team Providers Care Retina Subspecialist Name Role Phone Masoud Khan MD Primary Care Provider [phone] Encounter Details Date Type Department Care Team ([facility] Contact Info) Description 11/07/2024 9:30 AM EDT Ancillary Procedure [facility] - [facility] [address] 300 [facility] 154 [place] [phone] Arrived Social History Tobacco Use Types Packs/Day Years [...] Upcoming Encounters Date Type Department Care Team ([facility] Contact Info) Description 11/13/2024 10:30 AM EDT Ancillary Procedure [facility] - [facility] 154 300 [facility] 154 [place] [phone] 01/02/2025 11:15 AM EDT Office Visit Adult Medicine [address] [phone] Masoud Khan MD [address] [place] [phone] 02/05/2025 9:10 AM EDT Office Visit [facility] - [address] [facility] [address] [place] [address] Satnam Garcia NP 300 [place] [address] documented as of this encounter Procedures Procedure Name Priority Date/Time Associated Diagnosis Comments CARDIAC DEVICE CHECK- REMOTE- MURJ Routine 11/07/2024 9:27 AM EDT documented in this encounter Results * Cardiac device check - Remote- MURJ (11/07/2024 9:27 AM EDT) Date Time Interrogation Session [id number] CV DEVICE CHECK Type Interrogation Session Remote Scheduled CV DEVICE CHECK Implantable Pulse Generator Middleware Engineer [employer] CV DEVICE CHECK Implantable Pulse Generator Type IPG CV DEVICE CHECK Implantable Pulse Generator Model 2272 Assurity MRI(TM) CV DEVICE CHECK Implantable Pulse Generator Serial Number [id number] CV DEVICE CHECK Implantable Pulse Generator Implant Date [id number] CV DEVICE CHECK Battery Remaining Percentage 48.00 CV DEVICE CHECK Battery Remaining Longevity 43.0 CV DEVICE CHECK Battery Voltage 2.950 CV D EVICE CHECK Battery REVIEW TRAINER Trigger 2.600 CV DEVICE CHECK Battery Status Middle of Service CV DEVICE CHECK Santi Statistic RA Percent Paced 67.00 CV DEVICE CHECK Santi Statistic RV Percent Paced 18.00 CV DEVICE CHECK Atrial Tachy Statistic AT/AF [place] Percent 25.00 CV DEVICE CHECK Lead Channel [...] Maximum Tracking Rate 130 CV DEVICE CHECK Satni Setting Maximum Sensor Rate 120 CV DEVICE [...] was every worked up for this? Marcela RIBEIRO CV IMPLANTABLE CARDIAC DEVICE NE OCEDURES Final Result documented in this encounter Visit Diagnoses Not on filedocumented in this encounter Care Teams Retina Subspecialist Relationship Specialty Start Date End Date Masoud Khan MD [address] [place] [address] PCP - General Internal Medicine 10/25/24 documented as of this encounter
--- OUTSIDE RECORDS SUMMARY | 2024-11-09 06:38 | XMS_ITS | Encounter Summary ---
Author Organization [facility] Address [address] [place] [address] Care Team Providers Care Svp Digital Sales Name Role Phone Masoud Khan MD Primary Care Provider [phone] Reason for Visit * Reason Onset Date Comments provider call back 10/10/2024 Encounter Details Date Type Department Care Team ([facility] st Contact Info) Description 10/10/2024 Telephone Adult Medicine [address] [phone] Masoud Khan MD [address] [place] [phone] provider call back Social History Tobacco Use [...] of this encounter Ordered Prescriptions Prescription Sig Dispense Quantity Refills Last Filled Start Date End Date empagliflozin (Jardiance) 10 mg tablet Take 1 tablet (10 mg total) by mouth 1 (one) time each day in the morning. 90 tablet 10/10/2024 documented in this encounter Progress Notes * Marti Gotti MA - 10/10/2024 1:42 PM EST Pt made aware of Rx sent to pharmacy. * Masoud Khan MD - 10/10/2024 1:19 PM EST Please advise the patient to continue to take Jardiance 10 mg daily. This medication is good for the heart and kidney. Refill prescription is sent to the pharmacy * Vilma Sanders MA - 10/10/2024 1:02 PM EST Please review and advise, I do not see anything note she should stop this medication Rx last given 09/11 for # 30 Recent hosp f/u Lab Results Component Value Date HGBA1C 5.9 10/03/2024 HGBA1C 5.8 10/31/2021 Lab Results Component Value Date CREATININE 0.80 10/03/2024 * Najma Nash - 10/10/2024 11:57 AM EST Patient wants to know if she is to continue taking Jardiance 10 mg tablet, requesting call back documented in this encounter Plan of Treatment Upcoming Encounters Date Type Department Care Team (Late st Contact Info) Description 11/13/2024 10:30 AM EDT Ancillary Procedure [facility] - [facility] 154 300 [facility] 154 [place] [address] 01/02/2025 11:15 AM EDT Office Visit Adult Medicine [address] [phone] Masoud Khan MD [address] [place] [address] 02/05/2025 9:10 AM EDT Office Visit [facility] - [facility] [address] [phone] Satnam Garcia NP 300 [place] [address] documented as of this encounter Visit Diagnoses Not on filedocumented in this encounter Discontinued Medications Medication Sig Discontinue Reason Start Date End Da te Jardiance 10 mg tablet TAKE 1 TABLET (10 MG TOTAL) BY MOUTH 1 (ONE) TIME EACH DAY IN THE MORNING. Reorder 09/11/2024 10/10/2024 documented as of this encounter Care Teams Svp Digital Sales Relationship Specialty Start Date End Date Masoud Khan MD [address] [place] [address] PCP - General Internal Medicine 10/31/21 10/24/24 documented as of this encounter
--- OUTSIDE RECORDS SUMMARY | 2024-11-09 06:38 | XMS_ITS | Encounter Summary ---
Author Organization [facility] [address] Care Team Providers Care Coat Check Attendant Name Role Phone Masoud Khan MD Primary Care Provider [phone] Encounter Details Date Type Department Care Team ([facility] st Contact Info) Description 10/30/2024 Telephone [facility] - [facility] 154 300 [facility] 154 [place] [address] Satnam Garcia NP 300 [place], [place] [phone] Social History Tobacco Use Types Packs/Day Years [...] as of this encounter Progress Notes * Shira Win - 10/31/2024 8:44 AM EDT Appointment booked with patient daughter. * Barby Kaminski MA - 10/30/2024 9:57 AM EDT Please schedule for in office device check. Patient is re-establishing with our device clinic. We need to see her in clinic. documented in this encounter Plan of Treatment Upcoming Encounters Date Type Department Care Team (Late st Contact Info) Description 11/13/2024 10:30 AM EDT Ancillary Procedure [facility] - [facility] [address] 300 [facility] 154 [place] [address] 01/02/2025 11:15 AM EDT Office Visit Adult Medicine [address] [phone] Masoud Khan MD [address] [place] [address] 02/05/2025 9:10 AM EDT Office Visit [facility] - [facility] 154 300 [facility] 154 [place] [address] Satnam Garcia DIRECTOR SEMICONDUCTOR [address] [place] [address] documented as of this encounter Visit Diagnoses Not on filedocumented in this encounter Care Teams Coat Check Attendant Relationship Specialty Start Date End Date Masoud Khan MD [address] [place] [address] PCP - General Internal Medicine 10/25/24 documented as of this encounter
--- OUTSIDE RECORDS SUMMARY | 2024-11-09 06:38 | XMS_ITS | Encounter Summary ---
Author Organization [facility] [place] [address] Care Team Providers Care Fire Hydrant Mechanic Name Role Phone Masoud Khan MD Primary Care Provider [phone] Reason for Visit * Reason Onset Date Comments Flu Symptoms 09/25/2024 Encounter Details Date Type Department Care Team (Late st Contact Info) Description 09/25/2024 Telephone Adult Medicine [facility] [address] [place] [phone] Masoud Khan MD [address] [place] [address] Flu Symptoms Social History Tobacco Use Types Packs/Day Years [...] Progress Notes * Saloni Rocha RN - 09/25/2024 10:47 AM EST Pt to see dr khan 10/02 at 9:30for [facility] f/[place] * Brittany Hoffman - 09/25/2024 10:31 AM EST Hospital/ER follow up appointment needed Hospital patient was treated at: [facility] Was this only an ER visit or was the patient admitted to the hospital? Admitted to the hospital/kept overnight Date of visit if ER visit only: aug If patient was admitted what was the date of discharge? 08/25/2024 Reason/diagnosis for visit or stay: aphib and cough When was the patient told to follow up? As soon a possible Was visit or stay related to an injury? If yes, what was the date of injury (DOI)? No If yes, was the injury due to: Not 3rd alliance party related \ documented in this encounter Plan of Treatment Upcoming Encounters Date Type Department Care Team (Late st Contact Info) Description 11/13/2024 10:30 AM EDT Ancillary Procedure [facility] Cardiology [facility] [address] [phone] 01/02/2025 11:15 AM EDT Office Visit Adult Medicine [address] [phone] Masoud Khan MD [address] [place] [address] 02/05/2025 9:10 AM EDT Office Visit [facility] [address] [phone] Satnam Garcia NP 300 [place] [address] documented as of this encounter Visit Diagnoses Not on filedocumented in this encounter Care Teams Fire Hydrant Mechanic Relationship Specialty Start Date End Date Masoud Khan MD [address] [place] [address] PCP - General Internal Medicine 10/25/24 documented as of this encounter
--- OUTSIDE RECORDS SUMMARY | 2024-11-09 06:38 | XMS_ITS | Encounter Summary ---
Author Organization [facility] Address [address] [place] [address] Care Team Providers Care Earth Science Teacher Name Role Phone Masoud Khan MD Primary Care Provider [phone] Reason for Visit * Reason Onset Date Comments Fitting for DME 11/03/2024 Encounter Details Date Type Department Care Team ([facility] st Contact Info) Description 11/03/2024 Telephone Adult Medicine [address] [phone] Masoud Khan MD [address] [place] [address] Fitting for DME Social History Tobacco Use Types Packs/Day Years [...] as of this encounter Progress Notes * Greta Mojica LPN - 11/06/2024 9:20 AM EDT Rx and notes faxed to [facility] @ [phone] * Masoud Khan MD - 11/03/2024 8:14 PM EDT An addendum is added for nebulizer medical necessity * Greta Mojica LPN - 11/03/2024 3:45 PM EDT Received a call from [facility] that Dr khan wrote for rx for nebulizer solution for her @ her visit on 10/02/2024 She does not have a nebulizer Will do rx for the nebulizer Dr Khan please add to your note that she needs a nebulizer and the directions for her using the nebulizer Thank you Greta ESTES documented in this encounter Plan of Treatment Upcoming Encounters Date Type Department Care Team (Late st Contact Info) Description 11/13/2024 10:30 AM EDT Ancillary Procedure [facility]iology [facility] [address] [address] 01/02/2025 11:15 AM EDT Office Visit Adult Medicine [address] [address] Masoud Khan MD [address] [place] [address] 02/05/2025 9:10 AM EDT Office Visit [facility]iology [facility] [address] [phone] Satnam Garcia NP 300 [place] [address] documented as of this encounter Visit Diagnoses Not on filedocumented in this encounter Care Teams Earth Science Teacher Relationship Specialty Start Date End Date Masoud Khan MD [address] [place] [address] PCP - General Internal Medicine 10/25/24 documented as of this encounter
--- OUTSIDE RECORDS SUMMARY | 2024-11-09 06:38 | XMS_ITS | Encounter Summary ---
Author Organization [facility] Address [address] [place] [address] Care Team Providers Care Control Systems Drafting Officer Name Role Phone Masoud Khan MD Primary Care Provider [phone] Reason for Referral * Imaging (Routine) - Authorized Specialty Diagnoses / Procedures Referred By Ventura gale Referred To Contact Radiology Diagnoses Encounter for screening mammogram for malignant neoplasm of breast Procedures MG Mammo Digital Screening w Miguel bilat Masoud Khan MD [address] [place] [address] Phone: tel: fax: [address] Phone: tel: Referral ID Status Reason Start Date Expiration Date V isits Requested Visits Authorized [id number] Authorized 10/02/2024 10/02/2025 1 1 * Medications - Pending Review Specialty Diagnoses / Procedures Referred By Ventura gale Referred To Contact Diagnoses Moderate persistent asthma with exacerbation Masoud Khan MD [address] [place] [address] Phone: tel: fax: Referral ID Status Reason Start Date Expiration Date V isits Requested Visits Authorized [id number] Pending Review 1 1 Reason for Visit * Reason Comments Follow-up Encounter Details Date Type Department Care Team (Late st Contact Info) Description 10/02/2024 9:30 AM EST [place] [facility] [place] [address] [place] [address] Masoud Khan MD [address] [place] [address] Hospital discharge follow-up (Primary Dx); Chronic respiratory failure with hypoxia (CMS/HCC); Moderate persistent asthma with exacerbation; MARGOTH on CPAP; Hypokalemia; Chronic diastolic (congestive) heart failure (CMS/HCC); Paroxysmal atrial fibrillation (CMS/HCC); Essential hypertension, benign; Coronary artery disease involving stony river coronary artery of stony river heart without angina pectoris; Acquired hypothyroidism; Schizoaffective disorder, unspecified type (CMS/HCC); Prediabetes; Encounter for screening mammogram for malignant neoplasm of breast; Need for vaccination against Streptococcus pneumoniae Social History Tobacco Use Types Packs/Day Years [...] Pressure 138/78 10/02/2024 9:31 AM EST Pulse - - Temperature 36.6 ??C (97.8 ??F) 10/02/2024 9:31 AM ES T Respiratory Rate 20 10/02/2024 9:31 AM EST Oxygen Saturation - - Inhaled Oxygen Concentration - - Weight 130 kg (287 lb) 10/02/2024 9:31 AM EST Height 160 cm (5' 3 ) 10/02/2024 9:31 AM EST Body Mass Index 50.84 10/02/2024 9:31 AM EST documented in this encounter Ordered Prescriptions Prescription Sig Dispense Quantity Refills Last Filled Start Date End Date magnesium oxide (MAG-OX) 400 mg (241.3 elemental magnesium) tablet Take 1 tablet (400 mg total) by mouth 1 (one) time each day. 90 tablet 1 10/02/2024 albuterol 2.5 mg /3 mL (0.083 %) nebulizer solutionIndicatio ns:Moderate persistent asthma with exacerbation Take 3 mL (2.5 mg total) by nebulization 4 (four) times a day if needed for wheezing or shortness of breath. 100 each 2 10/02/2024 documented in this encounter Progress Notes * Masoud Khan MD - 10/02/2024 9:30 AM EST CHIEF COMPLAINT: Follow-up IDENTIFIER: Shahla Granados is a 69 y.o. old female. HPI: Patient presents for follow-up after hospitalization at [facility] from 09/22/2024 until 09/22/2024 Information was extracted from the discharge notes from [facility]. The history was reviewed for accuracy and confirmed by myself. I have reconciled the current and discharge meds. 69-year-old female patient with past medical history of hypertension, CAD, diastolic CHF with EF of65 to 70%, paroxysmal atrial fibrillation/atrial flutter on Xarelto, morbid obesity, obstructive sleep apnea on CPAP therapy, chronic hypoxic respiratory failure on O2 (2-3 let), asthma, hypothyroidism, drug- induced elevated prolactin, right-sided partial nephrectomy for angiolipoma, right renal cyst/renal lesion and anxiety/depression depression, who is seen here for hospital discharge follow-upexam. Patient was seen at [facility] for increased shortness of breath. She was positive for influenza A, hypokalemia and asthma exacerbation. Available hospital medical records are reviewed. Now she is feeling better and she has cough with small amount of phlegm. No history of fever. She denies any shortness of breath. She is not wheezing. Currently she is saturating 95% on room air.She is compliant with CPAP therapy. She is up-to-date for flu vaccine. She will be given PCV 20 vaccine. She is using Breo Ellipta and albuterol MDI and I will give the prescription for albuterol in the presentation solution. She follows with [employer]isher [employer] Dr. Guaman at [facility]. Until now she was recently seen by [facility] cardiology. 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 She follows with a psychiatrist for anxiety/depression. Health maintenance is reviewed. She is overdue for mammogram, ordered mammogram. She refuses colonoscopy. Today she received PCV 20 vaccine. ROS: GENERAL: No malaise, significant weight loss or fever HEENT: No changes in hearing or vision, nose bleeds or other nasal problems NECK: No lumps RESPIRATORY: No cough, wheezing or shortness of breath CARDIOVASCULAR: No chest pain, or palpitations GI: No abdominal pain, hematochezia, melena : No dysuria, oliguria, polyuria, hematuria, flank pain MUSCULOSKELETAL: No joint pain or swelling, back pain, or muscle pain. SKIN: No lesions, rash or itching NEURO: No persistent headache, syncope, seizures, weakness or numbness PAST MEDICAL HISTORY: Patient Active Problem List Diagnosis Date Noted Hypokalemia 10/02/2024 Chronic diastolic (congestive) heart failure ([facility]) 07/05/2024 Morbid obesity with BMI of 50.0-59.9, adult ([facility]) 06/30/2024 Osteoarthritis of left knee 12/29/2021 Prediabetes 11/01/2021 Respiratory failure, unspecified with hypoxia ([facility]) 09/05/2020 Paroxysmal atrial fibrillation ([facility]) 07/26/2020 CAD (coronary artery disease) 04/08/2020 Sick sinus syndrome ([facility]) 02/13/2020 Atrial flutter ([facility]) 04/25/2019 Overactive bladder 09/26/2013 MARGOTH on CPAP 10/02/2010 Schizoaffective disorder ([facility]) 05/23/2010 Essential hypertension, benign 01/06/2010 Asthma 12/09/2009 Anxiety 05/29/2009 Depression 05/29/2009 Hypercholesterolemia 05/29/2009 Hypothyroid 05/29/2009 Osteoarthritis 05/29/2009 Past Surgical History: Procedure Laterality Date OTHER SURGICAL HISTORY PROCEDURE: NH SALPINGO-OOPHORECTOMY COMPL/PRTL UNI/BI SPX; COMMENT: age 20's removed ROV, cyst OTHER SURGICAL HISTORY PROCEDURE: [facility] EXCISION PILONIDAL CYST/SINUS COMPLICATED OTHER SURGICAL HISTORY Right 02/15/2017 PROCEDURE: [facility] LAPAROSCOPY SURG PARTIAL NEPHRECTOMY; COMMENT: Dr. Patterson SOCIAL HISTORY: Social History Tobacco Use Smoking status: Former Current packs/day: 0.00 Types: Cigarettes Quit date: 08/23/1989 Years since quittin.1 Smokeless tobacco: Never Tobacco comments: QUIT IN HER 30'S Substance Use Topics Alcohol use: No FAMILY HISTORY: Family History Problem Relation Name Age of Onset Heart attack Father Other cancer Aunt does not know which kind Ovarian cancer Neg Hx Uterine cancer Neg Hx Colon cancer Neg Hx Breast cancer Neg Hx Family Status Relation Name Status Mother Father Sister Alive Brother Alive Aunt (Not Specified) Neg Hx (Not Specified) No partnership data on file MEDICATIONS DISCONTINUED/REORDERED: Medications Discontinued During This Encounter Medication Reason triamcinolone (KENALOG) 0.1 % cream sodium chloride 0.9 % solution for nebulization 88 mL with albuterol 2.5 mg/0.5 mL solution for nebulization 60 mg magnesium oxide (MAG-OX) 400 mg (241.3 elemental magnesium) tablet Reorder ACTIVE MEDICATIONS: Outpatient Medications Marked as Taking for the 10/02/24 encounter (Office Visit) with Masoud Khan MD Medication Sig Dispense Refill albuterol HFA (PROAIR [...] (one) time each day. 90 tablet 1 fluticasone furoate-vilanteroL (Breo Ellipta) 100-25 mcg/dose inhaler Inhale 1 puff by mouth 1 (one) time each day. 1 each 4 furosemide (LASIX) 20 mg tablet Take 1 tablet (20 mg total) by mouth 1 (one) time each day. 90 tablet 1 Jardiance 10 mg tablet TAKE 1 TABLET (10 MG TOTAL) BY MOUTH 1 (ONE) TIME EACH DAY IN THE MORNING. 30 tablet 0 levothyroxine (SYNTHROID, LEVOTHROID) 112 mcg tablet Take [...] thigh, or buttocks every 30 (thirty) days. sertraline (ZOLOFT) 100 mg tablet Take 1 Tab by mouth daily. [DISCONTINUED] magnesium oxide (MAG-OX) 400 mg (241.3 elemental magnesium) tablet Take 1 Tablet by mouth daily. ALLERGIES: Allergies Allergen Reactions Other Seasonal Allergies PHYSICAL EXAM: Visit Vitals BP 138/78 Temp 36.6 ??C (97.8 ??F) (Oral) Resp 20 Ht 1.6 m (63 ) Wt 130 kg (287 lb) LMP (LMP Unknown) BMI 50.84 kg/m?? Smoking Status Former BSA 2.25 m?? Body mass index is Body mass index is 50.84 kg/m??. APPEARANCE: Alert and in no acute distress EYES: PERRLA, conjunctiva and sclera normal. EARS: External ears normal. NOSE/SINUS: Nares normal. MOUTH/THROAT: no erythema or exudates HEART: RRR with normal S1 and S2, no murmurs LUNG: clear to auscultation, no wheezing ABDOMEN: Bowel sounds normoactive, soft, non-tender and no palpable masses. BACK: No pain to palpation EXTREMITIES: No edema NEURO: Awake, alert and oriented x 3. No focal neurological deficits SKIN: No rashes LABS: Recent labs done at [facility]-WBC 6.9, hemoglobin 9.9, hematocrit 36.9, platelet [id number] Sodium 145, potassium 3.1, chloride 108, bicarb 25, BUN 17, creatinine 0.8 Calcium 9.4 Bilirubin 0.4, AST 24, ALT 22, alkaline phos 80 BNP 286 Troponin 3.9 nasal swab was positive for influenza A IMAGING: Chest x-ray-mild pulmonary congestion Venous Doppler both lower extremities-no DVT EKG normal sinus rhythm with PVCs. IMPRESSION: 1. Hospital discharge follow-up 2. Chronic respiratory failure with hypoxia (CMS/HCC) 3. Moderate persistent asthma with exacerbation 4. MARGOTH on CPAP 5. Hypokalemia 6. Chronic diastolic (congestive) heart failure (CMS/HCC) 7. Paroxysmal atrial fibrillation (CMS/HCC) 8. Essential hypertension, benign 9. Coronary artery disease involving stony river coronary artery of stony river heart without angina pectoris 10. Acquired hypothyroidism 11. Schizoaffective disorder, unspecified type (CMS/HCC) 12. Prediabetes 13. Encounter for screening mammogram for malignant neoplasm of breast 14. Need for vaccination against Streptococcus pneumoniae PLAN: 1. Hospital discharge summary, lab reports, EKG, chest x-ray, discharge meds reviewed and meds are reconciled. 2. Patient has history of chronic respiratory failure with hypoxia, not compliant with O2 therapy. Currently she is saturating 95% on room air. She follows with [employer] Dr. Guaman. She is not wheezing. She will be benefited with nebulizer treatments. I will order nebulizer and albuterol ne bulization solution to use it 4 times a day as needed. Continue Breo Ellipta 1 puff daily, albuterol MDI/albuterol nebulization Q4 hourly as needed. She is compliant with CPAP therapy. 3. Recent potassium level was 3.1. She is on low-dose of Lasix. I will repeat electrolytes and magnesium level. Currently she is not on any KCl supplementation. 4. She looks euvolemic, continue Lasix 20 mg daily for history of chronic CHF. 5. She was recently seen by the bench machine operator and she has history of paroxysmal A-fib. She is on metoprolol 100 mg twice a day and Xarelto 20 mg daily. 6. Currently she is on levothyroxine 112 mcg 6 days a week and 1.5 tablets on Wednesday. Repeat TSH level and adjust levothyroxine dose. 7. Repeat A1c level for history of prediabetes. Patient is counseled on low-carb diet. 8. She follows with a psychiatrist for schizoaffective disorder. 9. Labs ordered including BMP, magnesium, TSH and A1c 10. Follow-up exam in 3 months Medication and lab orders: Orders Placed This Encounter Procedures MG Mammo Digital Screening w Miguel bilat Pneumococcal conjugate 20 valent (Prevnar 20, PCV 20) 2mo and older Basic metabolic panel Magnesium Thyroid stimulating hormone with reflex to free t4 and free t3 Hemoglobin A1c Other orders: PNEUMOCOCCAL CONJUGATE 20 VALENT (PREVNAR 20, PCV 20) 2MO AND OLDER MG MAMMO DIGITAL SCREENING W MIGUEL BILAT @ESIG@ documented in this encounter Plan of Treatment Upcoming Encounters Date Type Department Care Team (Late st Contact Info) Description 11/13/2024 10:30 AM EDT Ancillary Procedure [facility] Cardiology [facility] [address] [facility] [address] [place] [address] 01/02/2025 11:15 AM EDT [place] [facility] [place] [address] [place] [phone] Masoud Khan MD [address] [place] [address] 02/05/2025 9:10 AM EDT Office Visit [facility] [address] [facility] [address] [place] [address] Satnam Garcia NP [address] [place] [address] Scheduled Orders Name Type Priority Associated Diagnoses Orde r Schedule MG Mammo Digital Screening w Miguel bilat Imaging Routine Encounter for screening mammogram for malignant neoplasm of breast 1 Occurrences starting 10/02/2024 until 10/02/2025 documented as of this encounter Results * Hemoglobin A1c (10/03/2024 9:14 AM EST) Hemoglobin A1C 5.9 <6.5 % LAB CHEMISTRY METHOD 10/03/2024 1:14 PM EST [facility] Mean Bld Glu Estim. 123 mg/dL LAB CHEMISTRY METHOD 10/03/2024 1:14 PM EST [facility] Blood Venous blood specimen / Unknown Venipuncture / Unknown 10/03/2024 9:14 AM EST 10/03/2024 9:14 AM EST us Masoud Khan MD LAB BLOOD ORDERABLES Final Result Performing Organization Address City/[facility]/ZIP Co de Phone Number [facility] [address] [place] [address], [place] [phone] * (ABNORMAL) Thyroid stimulating hormone with reflex to free t4 and free t3 (10/03/2024 9:14 AM EST) [facility] TSH 5.06(H) 0.40 - 4.00 mcIU/mL LAB CHEMISTRY METHOD 10/03/2024 1:01 PM EST [facility] Blood Venous blood specimen / Unknown Venipuncture / Unknown 10/03/2024 9:14 AM EST 10/03/2024 9:14 AM EST us Masoud Khan MD LAB BLOOD ORDERABLES Final Result Performing Organization Address City/[facility]/ZIP Co de Phone Number [facility] [address] [place] [address], [place] [phone] * Magnesium (10/03/2024 9:14 AM EST) [facility] Magnesium 2.1 1.9 - 2.6 mg/dL LAB CHEMISTRY METHOD 10/03/2024 12:55 PM EST [facility] Blood Venous blood specimen / Unknown Venipuncture / Unknown 10/03/2024 9:14 AM EST 10/03/2024 9:14 AM EST us Masoud Khan MD LAB BLOOD ORDERABLES Final Result Performing Organization Address [facility]/ZIP Co de Phone Number [facility] [address] [place] [address], [place] [phone] * (ABNORMAL) Basic metabolic panel (10/03/2024 9:14 AM EST) Sodium 140 133 - 145 mmol/L LAB CHEMISTRY METHOD 10/03/2024 12:57 PM [facility] Potassium 4.2 3.5 - 5.5 mmol/L LAB CHEMISTRY METHOD 10/03/2024 12:57 PM [facility] Chloride 102 96 - 110 mmol/L LAB CHEMISTRY METHOD 10/03/2024 12:57 PM [facility] CO2 34(H) 21 - 32 mmol/L LAB CHEMISTRY METHOD 10/03/2024 12:57 PM [facility] Anion Gap 4 3 - 11 LAB CHEMISTRY METHOD 10/03/2024 12:57 PM [facility] Glucose 97 70 - 100 mg/dL LAB CHEMISTRY METHOD 10/03/2024 12:57 PM [facility] BUN 22 5 - 25 mg/dL LAB CHEMISTRY METHOD 10/03/2024 12:57 PM [facility] Creatinine 0.80 0.50 - 1.10 mg/dL LAB CHEMISTRY METHOD 10/03/2024 12:57 PM [facility] eGFR 80 >=60 mL/min/1. 73m2 LAB CHEMISTRY METHOD 10/03/2024 12:57 PM [facility] Comment:Calculation based on the??Chronic Kidney Disease Epidemiology Collaboration (CKD-EPI) equation refit??without adjustment for race. BUN/Creatinine Ratio 27.5 LAB CHEMISTRY METHOD 10/03/2024 12:57 PM [facility] Calcium 9.3 8.5 - 10.5 mg/dL LAB CHEMISTRY METHOD 10/03/2024 12:57 PM [facility] Blood Venous blood specimen / Unknown Venipuncture / Unknown 10/03/2024 9:14 AM EST 10/03/2024 9:14 AM EST us Masoud Khan MD LAB BLOOD ORDERABLES Final Result [facility] [address] [place] [address], documented in this encounter Visit Diagnoses Diagnosis Hospital discharge follow-up- Primary Other follow-up examination Chronic respiratory failure with hypoxia (CMS/HCC) Moderate persistent asthma with exacerbation Unspecified asthma, with exacerbation MARGOTH on CPAP Hypokalemia Hypopotassemia Chronic diastolic (congestive) heart failure (CMS/HCC) Paroxysmal atrial fibrillation (CMS/HCC) Atrial fibrillation Essential hypertension, benign Coronary artery disease involving stony river coronary artery of st[place] heart without angina pectoris Acquired hypothyroidism Unspecified hypothyroidism Schizoaffective disorder, unspecified type (CMS/HCC) Prediabetes Other abnormal glucose Encounter for screening mammogram for malignant neoplasm of breast Need for vaccination against Streptococcus pneumoniae Encounter for adjustment or management of cardiac device documented in this encounter Discontinued Medications Medication Sig Discontinue Reason Start Date End Da te triamcinolone (KENALOG) 0.1 % cream Apply to affected area(s) twice daily for up to 2 weeks. 01/06/2024 10/02/2024 sodium chloride 0.9 % solution for nebulization 88 mL with albuterol 2.5 mg/0.5 mL solution for nebulization 60 mg Take by nebulization continuously. 10/02/2024 magnesium oxide (MAG-OX) 400 mg (241.3 elemental magnesium) tablet Take 1 Tablet by mouth daily. Reorder 04/28/2024 10/02/2024 documented as of this encounter Orders Immunization/Injection Count Last Ordered Date First Ordered Date PNEUMOCOCCAL CONJUGATE 20 VA LENT (PREVNAR 20, PCV 20) 2MO AND OLDER 1 10/02/2024 documented in this encounter Care Teams Control Systems Drafting Officer Relationship Specialty Start Date End Date Masoud Khan MD [address] [place] [id number] PCP - General Internal Medicine 10/25/24 documented as of this encounter
[2024-11-09] MEDS: dilTIAZem HCL 50 MG/10 ML VIAL 20 MG IVPUSH (06:42)
--- NOTE | 2024-11-09 06:53 | MHC.EDTECH ---
Patient was biba ,ekg taken and was read by Provider ,Patient was hooked up to vehicle monitor technician ,vitals taken ,blood drawn and sent to lab ,Patient was change into hospital attire .Call flaherty within Pt reach
--- NOTE | 2024-11-09 06:55 | ED_ITS ---
HPI - General Adult General Chief complaint: Dizziness Stated complaint: Dizziness and weakness x3 days, hx Afib, 2L O2 Time Seen by Provider: 11/09/24 06:52 Source: patient and EMS Mode of arrival: EMS Limitations: no limitations History of Present Illness ED Provider: Berkley Story PA-C HPI narrative: Patient is a 69 year old assigned female at with a history of COPD with asthma, ACS, pacemaker, nonischemic cardiomyopathy, tachy-alicia syndrome, PAF, MARGOTH, and diastolic dysfunction presenting to the emergency department today with dizziness, lightheadedness, and feeling as though she has a rapid heart rate. Patient states that over the last few hours she has felt dizzy, lightheaded, and like her heart is racing. Patient states that she has not taken her morning medication. Patient denies any abdominal pain, nausea, vomiting, fever, chills, blurry vision, double vision, loss of vision, chest pain, difficulty breathing, shortness of breath, back pain, night sweats, pain with urination, increased urinary frequency, increased urinary urgency, blood in her urine or stool, syncope or a near syncopal episode, recent trauma or falls, bowel incontinence, bladder incontinence, or any other complaints at this time. Relieving factors: none Exacerbating factors: none Associated symptoms: denies other symptoms Treatments prior to arrival: none Related Data Home Medications ?Medication ?Instructions ?Recorded ?Confirmed levothyroxine 112 mcg tablet 112 mcg PO JOSÉ MIGUEL@0600 07/30/20 11/09/24 magnesium oxide 400 mg (241.3 mg 400 mg PO DAILY 07/30/20 11/09/24 magnesium) tablet melatonin 5 mg tablet 10 mg PO BEDTIME PRN insomnia 07/30/20 11/09/24 jiwbyjagktaq-stfcueml-clkkam tablet 1 tab PO DAILY 01/11/22 11/09/24 nystatin-triamcinolone 100,000 1 appl topical BID PRN Itching, 01/11/22 11/09/24 unit/g-0.1 % topical cream inflammation sertraline 25 mg tablet 25 mg PO DAILY 05/11/23 11/09/24 atorvastatin 40 mg tablet 40 mg PO BEDTIME 09/21/23 11/09/24 Oxygen Home Use 05/08/24 07/17/24 sertraline 100 mg tablet 100 mg PO DAILY 05/08/24 11/09/24 empagliflozin 10 mg tablet 10 mg PO DAILY 07/17/24 11/09/24 (Jardiance) aripiprazole 20 mg tablet 20 mg PO DAILY 09/22/24 11/09/24 diltiazem HCl 240 mg 240 mg PO DAILY 09/22/24 11/09/24 capsule,extended release 24 hr levothyroxine 112 mcg tablet 168 mcg PO ALLRED@0600 09/22/24 11/09/24 paliperidone palmitate 234 mg/1.5 234 mg IM Q4W 09/22/24 11/09/24 mL intramuscular syringe (Invega Sustenna) rivaroxaban 20 mg tablet (Xarelto) 20 mg PO BEDTIME 09/22/24 11/09/24 acetaminophen 500 mg tablet 500 mg PO Q6H PRN Pain 11/09/24 11/09/24 albuterol sulfate 90 mcg/actuation 2 puff inhalation Q4H PRN 11/09/24 11/09/24 aerosol inhaler shortness of breath or wheezing benztropine 1 mg tablet 1 mg PO BEDTIME 11/09/24 11/09/24 fluticasone furoate 100 1 ea inhalation DAILY 11/09/24 11/09/24 mcg-vilanterol 25 mcg/dose inhalation powder (Breo Ellipta) metoprolol tartrate 100 mg tablet 100 mg PO DAILY 11/09/24 11/09/24 Previous Rx's ?Medication ?Instructions ?Recorded montelukast 10 mg tablet 10 mg PO BEDTIME 30 days #30 tabs 02/22/24 (Singulair) furosemide 20 mg tablet 20 mg PO DAILY PRN edema #14 tabs 08/28/24 Allergies Allergy/AdvReac Type Severity Reaction Status Date / Time Seasonal Allergies Allergy Unknown Verified 11/09/24 06:03 Review of Systems 2 Constitutional: Constitutional: Reports no additional constitutional complaints, Denies chills, Denies fever(s) and Denies night sweats Eyes: Eyes: Reports no additional eye complaints, Denies blurry vision, Denies change in vision, Denies diplopia, Denies eye discharge, Denies loss of vision and Denies eye pain ENT: Reports dizziness Cardiovascular: Cardiovascular: Reports no additional cardiovascular complaints, Denies chest pain, Denies lightheadedness, Denies Loss of Consciousness and Denies dyspnea Respiratory: Respiratory: Reports no additional respiratory complaints and Denies dyspnea Gastrointestinal: Gastrointestinal: Reports no additional gastrointestinal complaints, Denies abdominal pain, Denies melena, Denies hematochezia, Denies change in bowel habits and Denies change in stool character Genitourinary: Genitourinary: Denies hematuria, Denies urinary frequency, Denies dysuria, Denies urinary incontinence, Denies urinary hesitancy and Denies urinary urgency Musculoskeletal: Musculoskeletal: Reports no additional musculoskeletal complaints, Denies numbness and Denies tingling Neurologic: Reports dizziness, Denies loss of vision, Denies numbness and Denies tingling Psychiatric: Psychiatric: Reports no additional psychiatric complaints Endocrine: Endocrine: Reports no additional endocrine complaints Hematologic/Lymphatic: Hematologic/Lymphatic: Reports no additional hematologic/lymphatic complaints Allergic/Immunologic: Allergic/Immunologic: Reports no additional allergic/immunologic complaints PMFSH Past Medical History Attestation statement: The following information was validated with the patient. Source: old records reviewed and nursing notes reviewed Medical History Chronic restrictive lung disease Nonischemic cardiomyopathy PAF (paroxysmal atrial fibrillation) Nocturnal hypoxemia Morbid obesity Asthma-COPD overlap syndrome Diastolic dysfunction Pneumonitis Schizophrenia, paranoid Afib Schizophrenia Atrial fib/flutter, transient Pneumonia due to COVID-19 virus Pacemaker Hypothyroid Schizophrenia HTN (hypertension) Asthma Surgical History History of cardiac pacemaker Hx of kidney removal Hx of removal of ovary Family History Family History Father Heart disease Mother Heart disease Social History Social History Household Members: None Housing: Apartment Do you presently have visiting nurse or other home services: Yes Alcohol intake: never Patient Tobacco Use Status: Former Tobacco user Years Smoked: 10 years +/- Smoked in Last 30 Days: No Use of substances other than those prescribed or required for medical reasons: No Advance Directives: Yes Advance Directives on File: Yes Advance Directives Date on File: 10/30/20 Do you have a plan to hurt others: No Plan service: No Current occupational status: disabled Physical Exam ED Vital Signs: Vital Signs - 24 hr 11/09/24 05:59 11/09/24 06:10 11/09/24 06:10 Temperature 97.7 F 97.7 F Pulse Rate 129 H 129 H Pulse Rate [Monitor] 128 H Respiratory Rate 14 22 H Blood Pressure 144/63 H 138/54 L Pulse Oximetry 93 93 Oxygen Delivery Method Room Air Room Air 11/09/24 06:42 11/09/24 07:11 11/09/24 08:07 Temperature Pulse Rate 128 H 131 H 128 H Pulse Rate [Monitor] Respiratory Rate Blood Pressure 135/54 L 125/68 131/80 Pulse Oximetry Oxygen Delivery Method 11/09/24 08:25 11/09/24 08:46 11/09/24 09:01 Temperature Pulse Rate 127 H 127 H 126 H Pulse Rate [Monitor] Respiratory Rate 19 Blood Pressure 122/86 121/62 111/67 Pulse Oximetry Oxygen Delivery Method 11/09/24 09:10 11/09/24 09:25 11/09/24 10:15 Temperature Pulse Rate 125 H 53 126 H Pulse Rate [Monitor] Respiratory Rate 14 20 Blood Pressure 123/75 107/53 L 112/92 H Pulse Oximetry 93 Oxygen Delivery Method Room Air BMI result Body Mass Index 47.5 Const General: cooperative, no acute distress, alert and awake Nutritional Appearance: well nourished Orientation/consciousness: patient oriented x3 Limitations: no limitations HENMT Head: Yes normal to inspection and Yes atraumatic Ears: hearing grossly normal bilaterally and external ears normal General nose exam: Normal external nose present, no nasal discharge noted and no epistaxis Face and sinus: Yes normal facial exam, No abrasion and No laceration Mouth: Normal oral and palatal mucosa present, no drooling and no muffled voice Eyes General: appearance normal, both eyes and all related structures Periorbital: periorbital findings normal Eyelids: Yes eyelids normal Conjunctivae: conjunctivae normal Pupils: Equal, round and reactive pupils present EOM: EOMs intact bilaterally Neck Neck: Yes normal visual inspection, Yes full ROM and Yes no lymphadenopathy Chest Chest palpation & inspection: normal inspection of the chest Resp Effort & Inspection: normal respiratory effort and able to speak in complete sentences Cardio Rate: tachycardic Rhythm: abnormal rhythm irregularly irregular GI Inspection: Yes normal to inspection Neuro General: patient oriented x3, moves all extremities and CN's II-XI intact bilaterally Cranial nerves: Yes Equal, round and reactive pupils present Cognition (Neuro): normal cognition Extrem General: Yes normal to inspection, Yes full ROM and Yes capillary refill normal Psych Appearance: grossly normal Mental Status: mental status grossly normal Affect: normal affect Attitude: cooperative Thought process: Normal thought process present Thought content: Normal thought content present Insight: Good insight present (Psych) Medications Administered Discontinued Medications Generic Name Dose Route Start Last Admin Trade Name Jovannyq PRN Reason Stop Dose Admin Digoxin 0.25 mg 11/09/24 08:59 11/09/24 09:07 Digoxin 0.5 Mg/2 Ml Ampul IVPUSH 11/09/24 09:00 0.25 mg ONCE ONE Administration Protocol Diltiazem HCl 20 mg 11/09/24 06:12 11/09/24 06:42 Diltiazem Hcl 50 Mg/10 Ml Vial IVPUSH 11/09/24 06:13 20 mg STAT STA Administration Diltiazem HCl 125 mg/ Sodium 125 mls @ 0 mls/hr 11/09/24 08:00 11/09/24 08:56 Chloride IVCONT Infused .Q0M ANTONETTE Titration Protocol Per Protocol Metoprolol Tartrate 100 mg 11/09/24 07:00 11/09/24 07:11 Metoprolol Tartrate 100 Mg Tablet PO 11/09/24 07:01 100 mg ONCE ONE Administration Protocol Medical Decision Making Medical Decision Making [facility] Narrative: Patient is a 69 year old assigned female at with a history of COPD with asthma, ACS, pacemaker, nonischemic cardiomyopathy, tachy-alicia syndrome, PAF, MARGOTH, and diastolic dysfunction presenting to the emergency department today with dizziness, lightheadedness, and feeling as though she has a rapid heart rate. Patient's physical exam was as noted in the physical exam portion of this note. Patient's blood work was unremarkable. Patient's EKG showed atrial flutter with RVR with rates of 129-131. Patient's chest x-ray showed no acute process. Patient was given 10mg of Diltiazem by Dr. Bolivar prior to my involvement in the case. Thought patient reported resolution of her symptoms, she continued to be tachycardic and in atrial flutter. I gave the patient 100 mg of PO Metoprolol Tartrate given she takes this dose BID at home and had not had her morning dose. Patient's rate remain elevated. I started the patient on a Cardizem drip which she quickly became maxed on. I consulted with Dr. Sevilla, the business objects, who recommended stopping the Diltiazem drip and giving a dose of IV Digoxin. Diltiazem drip stopped, dig ordered. I spoke to the hospitalist team who agreed to admission. I explained my physical exam findings as well as all test results to the patient. I answered all questions asked by the patient. Patient verbalized agreement and understanding with this treatment plan and admission. Differential Diagnosis Differential Diagnoses: The differential diagnosis associated with the presentation includes Atrial fib with RVR Atrial flutter with RVR Weakness Lightheadedness Orthostatic hypotension Admission/Observation Consideration of admission/observation: Escalation of care including admission/observation considered Patient admitted as noted in the MDM Rationale portion of this note. Consult Healthcare Provider Management of the patient was discussed with: Hospitalist (agreed to admission as noted in the MDM Rationale portion of this note. ) and Upholstery Instructor (spoke to the business objects as noted in the MDM Rationale portion of this note.) Lab Data [facility] Lab Attestation statement: I reviewed the patient's lab results. My interpretation of these results are in the MDM Rationale portion of this note. 11/09/24 06:50 11/09/24 06:50 Labs: Lab Results 11/09/24 11/09/24 Range/Units 06:50 10:14 WBC 6.0 (4.8-10.8) X10*3/uL RBC 4.29 (4.20-5.50) X10*6/uL Hgb 12.7 (12.0-16.0) g/dl Hct 39.2 (37.0-47.0) % MCV 91.4 (80.0-98.0) fL MCH 29.6 (27.0-33.0) pg MCHC 32.4 (31.0-35.0) g/dl RDW 15.3 (11.0-16.0) % Plt Count 238 (160-400) X10*3/uL MPV 9.1 L (9.4-12.3) fL Immature Gran % (Auto) 0.3 (0.0-0.4) % Neut % (Auto) 66.5 (45-73) % Lymph % (Auto) 20.0 (20-40) % Story % (Auto) 10.6 (2-11) % Eos % (Auto) 2.3 (0-4) % Baso % (Auto) 0.3 (0-2) % Lymph # (Auto) 1.2 (1.2-4.9) X10*3/uL Story # (Auto) 0.6 (0.1-1.2) X10*3/uL Eos # (Auto) 0.1 (0.0-0.4) X10*3/uL Baso # (Auto) 0.0 (0.0-0.2) X10*3/uL Abs Immat Gran (auto) 0.02 (0.00-0.03) X10*3/uL Absolute Neuts (auto) 4.0 (2.0-8.3) x10*3/uL Absolute Nucleated RBC 0.000 (0.0-0.012) X10*3/uL Nucleated RBC % (auto) 0.0 (0.0-0.2) /100WBC APTT 41.8 H (26.0-36.8) SEC Sodium 141 (135-145) mmol/L Potassium 4.0 (3.3-5.1) mmol/L Chloride 111 H (96-108) mmol/L Carbon Dioxide 23 (22-29) mmol/L Anion Gap 11 L (12-20) BUN 15 (9-16) mg/dL Creatinine 0.74 (0.5-1.4) mg/dL Estim Creat Clear Calc 90.7 Estimated GFR > 60 Random Glucose 89 (60-115) mg/dL Calcium 8.8 (8.4-10.2) mg/dL Total Bilirubin 0.6 (0.0-1.0) mg/dL AST 20 (5-31) U/L ALT 23 (0-31) U/L Alkaline Phosphatase 89 (39-117) U/L Troponin I High Sens < 2.7 (<3.5-17.0) ng/L B-Natriuretic Peptide 184 H (<100) pg/mL Total Protein 7.2 (6.5-8.0) g/dL Albumin 3.5 (3.5-5.0) g/dL Lipase 33 (8-78) U/L TSH 3.71 (0.32-4.0) uIU/mL Influenza Type A (PCR) NEGATIVE (Negative) Influenza Type B (PCR) NEGATIVE (Negative) RSV RNA Qual (PCR) NEGATIVE (Negative) SARS-CoV-2 RNA (RT-PCR) NEGATIVE (Negative) Independent Interpretation I performed an independent interpretation of an: EKG and Plain X-Ray Interpretation: My interpretation is in agreement with the radiologist's impression of this imaging study. L EXAMINATION: XR CHEST CLINICAL INFORMATION: Rapid AFib COMPARISON: September 22, 2024. TECHNIQUE: Frontal view of the chest was obtained. FINDINGS: Haziness in the perihilar regions and indistinct margins of the pulmonary vasculature. Cardiomediastinal silhouette size is normal. Calcified plaque thoracic aorta. Left-sided pacemaker with 2 intact electrode leads in the right heart chambers. Multiple EKG wires overlapping the heart silhouette. XR/XR chest 1V IMPRESSION: Pulmonary edema, mild to moderate. No cardiomegaly. Electronically signed by: Jasper Lynne MD 11/09/2024 08:00 AM EDT Dictated By: Jasper Fajardo MD Signed By: Electronically signed by Jasper Crowley MD 11/09/24 0800 I independently interpreted this EKG and am in agreement with the below findings: Vent. Rate: 130 BPM Atrial Rate: 260 BPM P-R Int: * ms QRS Dur: 70 ms QT Int: 422 ms P-R-T Axes: -72 -39 -59 degrees QTcB Int: 621 ms Atrial flutter with 2:1 A-V conduction Left axis deviation Septal infarct, age undetermined When compared with ECG of 22-Sep-2024 20:21, Atrial flutter has replaced Electronic ventricular pacemaker Vent. rate has increased by 65 bpm DD/ 0607 Radiology Impression Discussion of test interpretation with radiology: I have reviewed the radiologist's reading. Independent Historian Clinical information obtained from an independent historian. History obtained from or confirmed by: EMS (EMS provided additional history and confirmed the history provided by the patient.) Critical Care Time Critical Care Time Critical Care Time: Yes Total Critical Care Time: 46 Attestation: I spent 46 minutes of Critical Care Time with this patient. This does not include time spent on separately reported billable procedures. Discharge Plan Discharge Clinical Impression: Atrial fibrillation/flutter, Atrial fibrillation with RVR Patient Disposition: Admitted As Inpatient
[2024-11-09 06:56] LABS: MANUAL DIFF FLAG NO
[2024-11-09 06:59] LABS: Basophils Percent Auto 0.3 % (0-2); Eosinophils Absolute Auto 0.1 X10*3/uL (0.0-0.4); Eosinophils Percent Auto 2.3 % (0-4); Hematocrit 39.2 % (37.0-47.0); Hemoglobin 12.7 g/dl (12.0-16.0); Imm Gran Abs Auto 0.02 X10*3/uL (0.00-0.03); Imm Gran Pct Auto 0.3 % (0.0-0.4); Lymphocytes Absolute Auto 1.2 X10*3/uL (1.2-4.9); Mean Corpuscular HGB Conc 32.4 g/dl (31.0-35.0); Mean Corpuscular Hemoglobin 29.6 pg (27.0-33.0); Mean Corpuscular Volume 91.4 fL (80.0-98.0); Mean Platelet Volume 9.1 fL (9.4-12.3); Monocytes Absolute Auto 0.6 X10*3/uL (0.1-1.2); Monocytes Percent Auto 10.6 % (2-11); Neutrophils Percent Auto 66.5 % (45-73); Platelet Count 238 X10*3/uL (160-400); Red Blood Count 4.29 X10*6/uL (4.20-5.50); Red Cell Distribution Width 15.3 % (11.0-16.0)
[2024-11-09] MEDS: Metoprolol Tartrate 100 MG TABLET PO (07:11)
[2024-11-09 07:12] LABS: Alanine Aminotransferase 23 U/L (0-31); Albumin Level 3.5 g/dL (3.5-5.0); Alkaline Phosphatase 89 U/L (39-117); Anion Gap 11 (12-20); Aspartate Amino Transferase 20 U/L (5-31); Bilirubin Total 0.6 mg/dL (0.0-1.0); Blood Urea Nitrogen 15 mg/dL (9-16); Calcium 8.8 mg/dL (8.4-10.2); Carbon Dioxide 23 mmol/L (22-29); Chloride 111 mmol/L (96-108); Creatinine Clr Calc Pharmacy 90.7; Estimated Glomerular Filt Rate > 60; Glucose Random 89 mg/dL (60-115); Sodium 141 mmol/L (135-145); Total Protein 7.2 g/dL (6.5-8.0)
[2024-11-09 07:14] LABS: Partial Thromboplastin Time 41.8 SEC (26.0-36.8)
[2024-11-09 07:18] LABS: B Type Natriuretic Peptide 184 pg/mL (<100)
[2024-11-09 07:24] LABS: Troponin-I High Sensitivity < 2.7 ng/L (<3.5-17.0)
[2024-11-09] MEDS: dilTIAZem HCL 125 MG in 0.9 % Sodium Chloride 100 ML 10 MG IVCONT (08:07)
--- NOTE | 2024-11-09 08:28 | PC.NURSE ---
Care of Pt assumed at change of shift. Pt A&Ox3 HR continues to be elevated at 128-131. Cardizem drip started per MAR at base dose of 10mg/hr. BP and HR re-assessed after 15 minutes and HR continues steady at 127. Drip increased to 15 mg/hr per protocol and ED provider made aware via [employer].
[2024-11-09 08:35] LABS: TSH reflex Free T4 3.71 uIU/mL (0.32-4.0)
--- NOTE | 2024-11-09 09:00 | PC.NURSE ---
Written orders received to stop Cardizem drip at this time. Drip stopped at 0856. Per ED Provider Cardiology involved at this time, Awaiting new orders.
[2024-11-09] MEDS: Digoxin 0.5 MG/2 ML AMPUL 0.25 MG IVPUSH ×2 (09:07→19:38)
--- NOTE | 2024-11-09 09:50 | PHA.MEDREC ---
Addendum entered by Mi George [facility] 11/09/24 10:13: Reviewed by pharmacist Original Note: Pharmacy Consult ? Medication Reconciliation Pharmacy has completed the medication reconciliation. Spoke with patient and she was able to confirm her medications. Patient confirmed her Benztropine 1mg tab and states she was taking 1mg twice a day but noticed it was making her drowsy thought her day so she started taking one tab at bedtime. She also confirmed her Metoprolol Tartrate 100mg tab and states her Dr changed it in the last few weeks from taking 1 tab twice a day to 1 tab in the morning. She confirmed her Invega Sustenna injection once every 4 weeks and confirmed she is due for that today, she said she could try to have her daughter bring that in. She confirmed she took all her medications yesterday,
[2024-11-09 10:18] LABS: Lipase 33 U/L (8-78)
--- NOTE | 2024-11-09 10:59 | PM.IMHP ---
History of Present Illness Date of Service: 11/09/24 Attending physician on admission: Derrek Rogers Chief Complaint: afib with rvr 69 y/of COPD with asthma, ACS, pacemaker, nonischemic cardiomyopathy, tachy-alicia syndrome, PAF, MARGOTH, and diastolic dysfunction came withdizziness, lightheadedness, and feeling as though she has a rapid heart rate,in last few hours she has felt dizzy, lightheaded, and like her heart is racing. Patient states that she has not taken her morning medication. she denies any abdominal pain, nausea, vomiting, fever, chills, blurry vision, double vision, loss of vision, chest pain, difficulty breathing, shortness of breath, blood in her urine or stool, syncope or a near syncopal episode, recent trauma or falls. In ED patient received Cardizem drip and also given IV digoxin but heart rate still remain elevated. Patient's symptoms are somewhat improving, denies any chest pain. Patient getting admitted for AFib with RVR. Review of Systems Review of Systems: As above. Yes all other systems are reviewed and are negative [facility] Medical History Chronic restrictive lung disease Nonischemic cardiomyopathy PAF (paroxysmal atrial fibrillation) Nocturnal hypoxemia Morbid obesity Asthma-COPD overlap syndrome Diastolic dysfunction Pneumonitis Schizophrenia, paranoid Afib Schizophrenia Atrial fib/flutter, transient Pneumonia due to COVID-19 virus Pacemaker Hypothyroid Schizophrenia HTN (hypertension) Asthma Family History Father Heart disease Mother Heart disease Surgical History History of cardiac pacemaker Hx of kidney removal Hx of removal of ovary Social History Household Members: None Housing: Apartment Do you presently have visiting nurse or other home services: Yes Alcohol intake: never Patient Tobacco Use Status: Former Tobacco user Years Smoked: 10 years +/- Smoked in Last 30 Days: No Use of substances other than those prescribed or required for medical reasons: No Advance Directives: Yes Advance Directives on File: Yes Advance Directives Date on File: 10/30/20 Do you have a plan to hurt others: No Plan service: No Current occupational status: disabled Meds Allergies Allergy/AdvReac Type Severity Reaction Status Date / Time Seasonal Allergies Allergy Unknown Verified 11/09/24 06:03 Active Medications: Current Medications Acetaminophen (Acetaminophen 325 Mg Tablet) 650 mg PO Q6H PRN PRN Reason: Pain, Mild 1-3,fever,headache Calcium Carbonate (Calcium Carbonate 750 Mg Tab.Chew) 750 mg PO Q4H PRN PRN Reason: Heartburn Magnesium Hydroxide (Milk Of Magnesia 30 Ml Oral.Susp) 30 ml PO DAILY PRN PRN Reason: Constipation Melatonin (Melatonin 3 Mg Tablet) 6 mg PO BEDTIME PRN PRN Reason: Insomnia Sodium Chloride (0.9 % Sodium Chloride Flush 3 Ml Syringe) 3 ml IVFLUSH [facility] Medications ?Medication ?Instructions ?Recorded ?Confirmed ?Last Taken ?Type levothyroxine 112 mcg tablet 112 mcg PO MOTUWETHFRSA@0600 07/30/20 11/09/24 11/08/24 History magnesium oxide 400 mg (241.3 mg 400 mg PO DAILY 07/30/20 11/09/24 11/08/24 History magnesium) tablet melatonin 5 mg tablet 10 mg PO BEDTIME PRN insomnia 07/30/20 11/09/24 01/10/22 History wgqndlevhzpv-pmrqykts-mqmudo tablet 1 tab PO DAILY 01/11/22 11/09/24 11/08/24 History nystatin-triamcinolone 100,000 1 appl topical BID PRN Itching, 01/11/22 11/09/24 09/21/24 History unit/g-0.1 % topical cream inflammation sertraline 25 mg tablet 25 mg PO DAILY 05/11/23 11/09/24 11/08/24 History atorvastatin 40 mg tablet 40 mg PO BEDTIME 09/21/23 11/09/24 11/08/24 History Oxygen Home Use 05/08/24 07/17/24 Unknown History sertraline 100 mg tablet 100 mg PO DAILY 05/08/24 11/09/24 11/08/24 History empagliflozin 10 mg tablet 10 mg PO DAILY 07/17/24 11/09/24 11/08/24 History (Jardiance) aripiprazole 20 mg tablet 20 mg PO DAILY 09/22/24 11/09/24 11/08/24 History diltiazem HCl 240 mg 240 mg PO DAILY 09/22/24 11/09/24 11/08/24 History capsule,extended release 24 hr levothyroxine 112 mcg tablet 168 mcg PO ALLRED@0600 09/22/24 11/09/24 11/05/24 History paliperidone palmitate 234 mg/1.5 234 mg IM Q4W 09/22/24 11/09/24 10/19/24 History mL intramuscular syringe (Invega Sustenna) rivaroxaban 20 mg tablet (Xarelto) 20 mg PO BEDTIME 09/22/24 11/09/24 11/08/24 History acetaminophen 500 mg tablet 500 mg PO Q6H PRN Pain 11/09/24 11/09/24 Unknown History albuterol sulfate 90 mcg/actuation 2 puff inhalation Q4H PRN 11/09/24 11/09/24 Unknown History aerosol inhaler shortness of breath or wheezing benztropine 1 mg tablet 1 mg PO BEDTIME 11/09/24 11/09/24 11/08/24 History fluticasone furoate 100 1 ea inhalation DAILY 11/09/24 11/09/24 11/08/24 History mcg-vilanterol 25 mcg/dose inhalation powder (Breo Ellipta) metoprolol tartrate 100 mg tablet 100 mg PO DAILY 11/09/24 11/09/24 11/08/24 History Physical Exam Vital Signs and Narrative: Vital Signs: Last Vital Signs Temp 97.7 F 11/09/24 06:10 Pulse 126 H 11/09/24 10:15 Resp 20 11/09/24 10:15 BP 112/92 H 11/09/24 10:15 Pulse Ox 93 11/09/24 10:15 O2 Del Method Room Air 11/09/24 10:15 BMI result Body Mass Index 47.5 Appearance: Alert.? Oriented X3.? cvs: irregular rythem, [id number] , has pacemaker. res: clear to auscultation ,no rhonchii or wheezing abd: no rebound or guarding ,nt, bs present. ext pulses present , no cyanosis. neuro: axo3 , nonfocal. Results Labs 11/09/24 06:50 11/09/24 06:50 Labs: Laboratory Results - last 24 hr 11/09/24 06:50 MCV 91.4 MCH 29.6 MCHC 32.4 RDW 15.3 Plt Count 238 MPV 9.1 L Immature Gran % (Auto) 0.3 Neut % (Auto) 66.5 Lymph % (Auto) 20.0 [place] % (Auto) 10.6 Eos % (Auto) 2.3 Baso % (Auto) 0.3 Lymph # (Auto) 1.2 [place] # (Auto) 0.6 Eos # (Auto) 0.1 Baso # (Auto) 0.0 Abs Immat Gran (auto) 0.02 Absolute Neuts (auto) 4.0 Absolute Nucleated RBC 0.000 Nucleated RBC % (auto) 0.0 APTT 41.8 H Anion Gap 11 L Estim Creat Clear Calc 90.7 Estimated GFR > 60 Random Glucose 89 Calcium 8.8 Total Bilirubin 0.6 AST 20 ALT 23 Alkaline Phosphatase 89 B-Natriuretic Peptide 184 H Total Protein 7.2 Albumin 3.5 Lipase 33 TSH 3.71 Imaging Radiologist's Impressions: Impressions Chest X-Ray 11/09/24 06:12 IMPRESSION: Pulmonary edema, mild to moderate. No cardiomegaly. Electronically signed by: Jasper Lynne MD 11/09/2024 08:00 AM EDT RP Assessment and Plan (1) Atrial fibrillation with RVR: Status: Acute Plan 69F PMH significant for?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, paroxysmal AFib on Xarelto, tachy-alicia syndrome s/p pacemaker in situ, HFpEF, HTN, hypothyroidism, MARGOTH on CPAP, and schizophrenia who symptomatic with dizziness in the setting of AFib RVR paroxysmal AFib with RVR: Patient is started on Cardizem drip-which is stopped, patient digoxin loading ordered In addition will give Cardizem and metoprolol Cardiology following As per the patient she does not take amiodarone unclear reason, continue Xarelto. Currently not interested in cardioversion. chronic hypoxic respiratory failure with Acute asthma/COPD overlap syndrome. Denies shortness of breath Continue home pulmonary meds chronic HFpEF exacerbation Continue home diuretics HLD Continue statin Hypothyroidism Continue levothyroxine Mood disorder Continue aripiprazole and sertraline Obesity class 3 Encourage weight loss Full Code DVT pptx - xarelto Patient will benefit from 2 midnight stays currently-considering symptomatic with AFib with RVR heart rate still elevated-need tele monitoring and rate control medication adjustment, continue Xarelto Quality Stroke Does the patient have a stroke diagnosis?: No VTE Prior VTE?: No VTE Risk Level:: Medical - low VTE Device Contraindication: N/A - Device Ordered VTE Drug Contraindication: N/A - Med Ordered
[2024-11-09 11:08] LABS: Influenza A PCR NEGATIVE (Negative); Influenza B PCR NEGATIVE (Negative); Resp Syncy Virus RNA Qual PCR NEGATIVE (Negative); SARS COV2 PCR INHOUSE NEGATIVE (Negative)
--- NOTE | 2024-11-09 11:16 | PM.CNCAR ---
History of Present Illness History of Present Illness Date of Service: 11/09/24 Requesting physician: Derrek Rogers Chief complaint: Atrial flutter Narrative: [age] female who follows with Dr. Carrol Fortune and is here for tiredness and is in atrial flutter with rapid ventricular response. She was started on Cardizem drip and drip was maxed out but she did not have any change in heart rate. At home she is on diltiazem 240 mg and metoprolol 100 mg daily. She is on Xarelto for anticoagulation and has not missed any doses in the last month. Denying chest discomfort or any shortness of breath. She previously was on amiodarone but this was discontinued because she continued to have atrial fibrillation episodes on amiodarone and there were some questions about compliance with medications as per discussion with her primary life sciences director. Heart rate is difficult to control. We discussed about cardioversion but patient declined cardioversion. [facility] Past Medical History Medical History Chronic restrictive lung disease Nonischemic cardiomyopathy PAF (paroxysmal atrial fibrillation) Nocturnal hypoxemia Morbid obesity Asthma-COPD overlap syndrome Diastolic dysfunction Pneumonitis Schizophrenia, paranoid Afib Schizophrenia Atrial fib/flutter, transient Pneumonia due to COVID-19 virus Pacemaker Hypothyroid Schizophrenia HTN (hypertension) Asthma Family History Family History Father Heart disease Mother Heart disease Surgical History Surgical History History of cardiac pacemaker Hx of kidney removal Hx of removal of ovary Social History Social History Household Members: None Housing: Apartment Do you presently have visiting nurse or other home services: Yes Alcohol intake: never Patient Tobacco Use Status: Former Tobacco user Years Smoked: 10 years +/- Smoked in Last 30 Days: No Use of substances other than those prescribed or required for medical reasons: No Advance Directives: Yes Advance Directives on File: Yes Advance Directives Date on File: 10/30/20 Do you have a plan to hurt others: No Plan service: No Current occupational status: disabled Meds Allergies Allergy/AdvReac Type Severity Reaction Status Date / Time Seasonal Allergies Allergy Unknown Verified 11/09/24 06:03 Active Medications: Current Medications Acetaminophen (Acetaminophen 325 Mg Tablet) 650 mg PO Q6H PRN PRN Reason: Pain, Mild 1-3,fever,headache Calcium Carbonate (Calcium Carbonate 750 Mg Tab.Chew) 750 mg PO Q4H PRN PRN Reason: Heartburn Magnesium Hydroxide (Milk Of Magnesia 30 Ml Oral.Susp) 30 ml PO DAILY PRN PRN Reason: Constipation Melatonin (Melatonin 3 Mg Tablet) 6 mg PO BEDTIME PRN PRN Reason: Insomnia Sodium Chloride (0.9 % Sodium Chloride Flush 3 Ml Syringe) 3 ml IVFLUSH [facility] Home Medications ?Medication ?Instructions ?Recorded ?Confirmed ?Last Taken ?Type levothyroxine 112 mcg tablet 112 mcg PO MOTUWETHFRSA@0600 07/30/20 11/09/24 11/08/24 History magnesium oxide 400 mg (241.3 mg 400 mg PO DAILY 07/30/20 11/09/24 11/08/24 History magnesium) tablet melatonin 5 mg tablet 10 mg PO BEDTIME PRN insomnia 07/30/20 11/09/24 01/10/22 History xmmbondtxscf-rryzhnvk-otvgdl tablet 1 tab PO DAILY 01/11/22 11/09/24 11/08/24 History nystatin-triamcinolone 100,000 1 appl topical BID PRN Itching, 01/11/22 11/09/24 09/21/24 History unit/g-0.1 % topical cream inflammation sertraline 25 mg tablet 25 mg PO DAILY 05/11/23 11/09/24 11/08/24 History atorvastatin 40 mg tablet 40 mg PO BEDTIME 09/21/23 11/09/24 11/08/24 History Oxygen Home Use 05/08/24 07/17/24 Unknown History sertraline 100 mg tablet 100 mg PO DAILY 05/08/24 11/09/24 11/08/24 History empagliflozin 10 mg tablet 10 mg PO DAILY 07/17/24 11/09/24 11/08/24 History (Jardiance) aripiprazole 20 mg tablet 20 mg PO DAILY 09/22/24 11/09/24 11/08/24 History diltiazem HCl 240 mg 240 mg PO DAILY 09/22/24 11/09/24 11/08/24 History capsule,extended release 24 hr levothyroxine 112 mcg tablet 168 mcg PO ALLRED@0600 09/22/24 11/09/24 11/05/24 History paliperidone palmitate 234 mg/1.5 234 mg IM Q4W 09/22/24 11/09/24 10/19/24 History mL intramuscular syringe (Invega Sustenna) rivaroxaban 20 mg tablet (Xarelto) 20 mg PO BEDTIME 09/22/24 11/09/24 11/08/24 History acetaminophen 500 mg tablet 500 mg PO Q6H PRN Pain 11/09/24 11/09/24 Unknown History albuterol sulfate 90 mcg/actuation 2 puff inhalation Q4H PRN 11/09/24 11/09/24 Unknown History aerosol inhaler shortness of breath or wheezing benztropine 1 mg tablet 1 mg PO BEDTIME 11/09/24 11/09/24 11/08/24 History fluticasone furoate 100 1 ea inhalation DAILY 11/09/24 11/09/24 11/08/24 History mcg-vilanterol 25 mcg/dose inhalation powder (Breo Ellipta) metoprolol tartrate 100 mg tablet 100 mg PO DAILY 11/09/24 11/09/24 11/08/24 History Physical Exam Vital Signs: Vital Signs: Last Vital Signs Temp 97.7 F 11/09/24 06:10 Pulse 126 H 11/09/24 10:15 Resp 20 11/09/24 10:15 BP 112/92 H 11/09/24 10:15 Pulse Ox 93 11/09/24 10:15 O2 Del Method Room Air 11/09/24 10:15 BMI result Body Mass Index 47.5 GENERAL APPEARANCE: in no acute distress, pleasant. NECK: no carotid bruit, no jugular venous distention. SKIN: no suspicious lesions, warm and dry. HEART: no murmurs, regular rate and rhythm. Tachycardic. LUNGS: clear to auscultation bilaterally. ABDOMEN: soft, nontender. EXTREMITIES: no edema. PERIPHERAL PULSES: equal. NEUROLOGIC: No gross deficits, AAO X 3 Objective Labs and Meds 11/09/24 06:50 11/09/24 06:50 Lab results: Laboratory Results - last 24 hr 11/09/24 11/09/24 06:50 10:14 WBC 6.0 RBC 4.29 Hgb 12.7 Hct 39.2 MCV 91.4 MCH 29.6 MCHC 32.4 RDW 15.3 Plt Count 238 MPV 9.1 L Immature Gran % (Auto) 0.3 Neut % (Auto) 66.5 Lymph % (Auto) 20.0 [place] % (Auto) 10.6 Eos % (Auto) 2.3 Baso % (Auto) 0.3 Lymph # (Auto) 1.2 [place] # (Auto) 0.6 Eos # (Auto) 0.1 Baso # (Auto) 0.0 Abs Immat Gran (auto) 0.02 Absolute Neuts (auto) 4.0 Absolute Nucleated RBC 0.000 Nucleated RBC % (auto) 0.0 APTT 41.8 H Sodium 141 Potassium 4.0 Chloride 111 H Carbon Dioxide 23 Anion Gap 11 L BUN 15 Creatinine 0.74 Estim Creat Clear Calc 90.7 Estimated GFR > 60 Random Glucose 89 Calcium 8.8 Total Bilirubin 0.6 AST 20 ALT 23 Alkaline Phosphatase 89 Troponin I High Sens < 2.7 B-Natriuretic Peptide 184 H Total Protein 7.2 Albumin 3.5 Lipase 33 TSH 3.71 Influenza Type A (PCR) NEGATIVE Influenza Type B (PCR) NEGATIVE RSV RNA Qual (PCR) NEGATIVE SARS-CoV-2 RNA (RT-PCR) NEGATIVE Imaging Radiologist's impression: Impressions Chest X-Ray 11/09/24 06:12 IMPRESSION: Pulmonary edema, mild to moderate. No cardiomegaly. Electronically signed by: Jasper Lynne MD 11/09/2024 08:00 AM EDT Assessment and Plan (1) Atrial flutter: Status: Acute Plan Pleasant 69 year female presenting with fatigue and tiredness and noticed to be in atrial flutter with rapid ventricular response. Difficult to control heart rate which is classic for atrial flutter. Resume home medications including diltiazem 240 mg daily and Toprol-XL 100 mg daily. Continue anticoagulation with Xarelto. Give digoxin load of 250 mcg x 3 6 hours apart. If she improves with this strategy then add digoxin 125 mcg q.48h. Amiodarone was stopped but she does not have any intolerance of amiodarone and can be used as a last resort. Currently I would avoid it. Thank you for allowing me to participate in the care of your patient. Please feel free to contact me if you have any questions. Procedures Date of Service Date of Service: 11/09/24
[2024-11-09] MEDS: Paliperidone Palmitate 234 MG/1.5 ML SYRINGE IM (13:49)
[2024-11-09] MEDS: Nystatin/Triamcinolone Cream 15 GM TUBE 1 APPL TOPICAL (13:51)
[2024-11-09] MEDS: 0.9 % Sodium Chloride Flush 3 ML SYRINGE IVFLUSH (17:32)
--- NOTE | 2024-11-09 19:54 | PC.NURSE ---
pharmacy chiki sent for med not in pyxis.
[2024-11-09] MEDS: dilTIAZem HCL CD 240 MG CAP.ER.DEG PO (20:22)
[2024-11-09] MEDS: Rivaroxaban 20 MG TABLET PO (20:48)
[2024-11-09] MEDS: Atorvastatin Calcium 40 MG TABLET PO (20:48)
[2024-11-09] MEDS: Montelukast Sodium 10 MG TABLET PO (20:48)
[2024-11-09] MEDS: Benztropine Mesylate 1 MG TABLET PO (20:48)
--- NOTE | 2024-11-09 20:50 | PC.NURSE ---
pt oob to bedside commode, back to bed hr unchanged rate 130. pt denies pain
[2024-11-10] VITALS (7 sets, daily range): BP systolic 120–142; BP diastolic 59–82; PULSE 98–137; RESP 12–20; TEMP 36.2–36.8; O2SAT 94–97
--- NOTE | 2024-11-10 00:13 | MHC.EDTECH ---
ASSUMED CARE OF PT @2300, AT THIS TIME THE PT IS LAYING IN STRETCHER UNDER NO APPARENT DISTRESS, CALL LIGHT GIVEN FOR SAFETY, NO NEEDS MADE AWARE AT THIS TIME
[2024-11-10] MEDS: Digoxin 0.5 MG/2 ML AMPUL 0.25 MG IVPUSH (01:11)
[2024-11-10] MEDS: Levothyroxine Sodium 112 MCG TABLET PO (05:49)
[2024-11-10] MEDS: Acetaminophen 325 MG TABLET 650 MG PO (05:50)
--- NOTE | 2024-11-10 08:21 | P.PNIM_ITS ---
Subjective Subjective Date of Service: 11/11/24 Interval History: afib with rvr Review of Systems hr flactuating feels anxious denies chest pain or sob Physical Exam 2 Vital Signs: Vital Signs: Last Vital Signs Temp 97.2 F 11/10/24 07:25 Pulse 137 H 11/10/24 07:25 Resp 18 11/10/24 07:25 BP 124/59 L 11/10/24 07:25 Pulse Ox 94 11/10/24 07:25 O2 Del Method Nasal Cannula 11/10/24 07:25 O2 Flow Rate 1 11/10/24 07:25 BMI result Body Mass Index 47.5 Appearance: Alert.? Oriented X3.? cvs: irregular rythem, [id number] , has pacemaker. res: clear to auscultation ,no rhonchii or wheezing abd: no rebound or guarding ,nt, bs present. ext pulses present , no cyanosis. neuro: axo3 , nonfocal. Objective Data Active Medications Acetaminophen (Acetaminophen 325 Mg Tablet) 650 mg PO Q6H PRN PRN Reason: Pain, Mild 1-3,fever,headache Last Admin: 11/10/24 05:50 Dose: 650 mg Documented By: JUSTIN-TUCKER Albuterol Sulfate (Albuterol Sulfate 90 Mcg 8 Gm Inhaler) 2 puff INHALE Q4H PRN PRN Reason: shortness of breath or wheezing Aripiprazole (Aripiprazole 20 Mg Tablet) 20 mg PO DAILY [facility] Atorvastatin Calcium (Atorvastatin Calcium 40 Mg Tablet) 40 mg PO BEDTIME [facility] Last Admin: 11/09/24 20:48 Dose: 40 mg Documented By: DRAKE Benztropine Mesylate (Benztropine Mesylate 1 Mg Tablet) 1 mg PO BEDTIME [facility] Last Admin: 11/09/24 20:48 Dose: 1 mg Documented By: DRAKE Calcium Carbonate (Calcium Carbonate 750 Mg Tab.Chew) 750 mg PO Q4H PRN PRN Reason: Heartburn Diltiazem HCl (Diltiazem Hcl 60 Mg Tablet) 120 mg PO BID [facility]; Protocol Empagliflozin (Empagliflozin 10 Mg Tablet) 10 mg PO DAILY [facility] Fluticasone/Vilanterol (Fluticasone/Vilanterol 100/25 Blst.W.Dev) 1 puff INHALE RDAILY [facility] Furosemide (Furosemide 20 Mg Tablet) 20 mg PO DAILY PRN; Protocol PRN Reason: edema Levothyroxine Sodium (Levothyroxine Sodium 112 Mcg Tablet) 112 mcg PO MOTUWETHFRSA@0600 [facility] Last Admin: 11/10/24 05:49 Dose: 112 mcg Documented By: BHUPINDER Levothyroxine Sodium (Levothyroxine Sodium 112 Mcg Tablet) 168 mcg PO ALLRED@0600 [facility] Magnesium Hydroxide (Milk Of Magnesia 30 Ml Oral.Susp) 30 ml PO DAILY PRN PRN Reason: Constipation Magnesium Oxide (Magnesium Oxide 400 Mg Tablet) 400 mg PO DAILY [facility] Melatonin (Melatonin 3 Mg Tablet) 6 mg PO BEDTIME PRN PRN Reason: Insomnia Melatonin (Melatonin 3 Mg Tablet) 9 mg PO BEDTIME PRN PRN Reason: insomnia Metoprolol Succinate (Metoprolol Succinate Er 100 Mg Tab.Er.24h) 100 mg PO DAILY [facility]; Protocol Montelukast Sodium (Montelukast Sodium 10 Mg Tablet) 10 mg PO BEDTIME [facility] Last Admin: 11/09/24 20:48 Dose: 10 mg Documented By: DRAKE Multivitamins/Vitamin C (Multivitamin Tablet) 1 tab PO DAILY [facility] Nystatin/Triamcinolone Acetonide (Nystatin/Triamcinolone Cream 15 Gm Tube) 1 appl TOPICAL BID PRN; Protocol PRN Reason: Itching, inflammation Last Admin: 11/09/24 13:51 Dose: 1 appl Documented By: GAGANDEEP Paliperidone Palmitate (Paliperidone Palmitate 234 Mg/1.5 Ml Syringe) 234 mg IM Q28D [facility] Last Admin: 11/09/24 13:49 Dose: 234 mg Documented By: GAAGNDEEP Rivaroxaban (Rivaroxaban 20 Mg Tablet) 20 mg PO BEDTIME [facility] Last Admin: 11/09/24 20:48 Dose: 20 mg Documented By: DRAKE Sertraline HCl (Sertraline Hcl 25 Mg Tablet) 25 mg PO DAILY [facility] Sertraline HCl (Sertraline Hcl 100 Mg Tablet) 100 mg PO DAILY [facility] Sodium Chloride (0.9 % Sodium Chloride Flush 3 Ml Syringe) 3 ml IVFLUSH QSHIFT [facility] Last Admin: 11/10/24 01:08 Dose: Not Given Documented By: DRAKE Non-Admin Reason: Med Not Available Labs 11/09/24 06:50 11/11/24 12:55 Labs: Laboratory Results - last 24 hr 11/09/24 11/09/24 06:50 10:14 Lipase 33 TSH 3.71 Influenza Type A (PCR) NEGATIVE Influenza Type B (PCR) NEGATIVE RSV RNA Qual (PCR) NEGATIVE SARS-CoV-2 RNA (RT-PCR) NEGATIVE Assessment and Plan (1) Atrial fibrillation with RVR: Status: Acute Assessment and Plan: 69F PMH significant for?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, paroxysmal AFib on Xarelto, tachy-alicia syndrome s/p pacemaker in situ, HFpEF, HTN, hypothyroidism, MARGOTH on CPAP, and schizophrenia who symptomatic with dizziness in the setting of AFib RVR paroxysmal AFib with RVR: Patient is started on Cardizem drip-which is stopped, patient digoxin loading ordered In addition will give Cardizem and metoprolol Cardiology following As per the patient she does not take amiodarone unclear reason, continue Xarelto. Currently not interested in cardioversion. chronic hypoxic respiratory failure with Acute asthma/COPD overlap syndrome. Denies shortness of breath Continue home pulmonary meds chronic HFpEF exacerbation Continue home diuretics HLD Continue statin Hypothyroidism Continue levothyroxine Mood disorder Continue aripiprazole and sertraline Obesity class 3 Encourage weight loss Full Code DVT pptx - xarelto Patient will benefit from 2 midnight stays currently-considering symptomatic with AFib with RVR heart rate still elevated-need tele monitoring and rate control medication adjustment, continue Xarelto Quality Stroke Does the patient have a stroke diagnosis?: No VTE Prior VTE?: No VTE Risk Level:: Medical - low VTE Device Contraindication: N/A - Device Ordered VTE Drug Contraindication: N/A - Med Ordered
[2024-11-10] MEDS: dilTIAZem HCL 60 MG TABLET 120 MG PO (08:50)
[2024-11-10] MEDS: 0.9 % Sodium Chloride Flush 3 ML SYRINGE IVFLUSH ×2 (08:50→18:22)
[2024-11-10] MEDS: Magnesium Oxide 400 MG TABLET PO (08:51)
[2024-11-10] MEDS: Metoprolol Succinate ER 100 MG TAB.ER.24H PO (08:51)
[2024-11-10] MEDS: ARIPiprazole 20 MG TABLET PO (08:51)
[2024-11-10] MEDS: Sertraline HCL 25 MG TABLET PO (08:51)
[2024-11-10] MEDS: Multivitamin TABLET 1 TAB PO (08:51)
[2024-11-10] MEDS: Empagliflozin 10 MG TABLET PO (08:52)
[2024-11-10] MEDS: Sertraline HCL 100 MG TABLET PO (08:52)
[2024-11-10] MEDS: LORazepam 1 MG TABLET PO (10:59)
[2024-11-10] MEDS: Fluticasone/Vilanterol 100/25 BLST.W.DEV 1 PUFF INHALE (10:59)
--- NOTE | 2024-11-10 11:32 | PM.PNCARD ---
Subjective Subjective Date of Service: 11/10/24 Interval history: Seen examined at bedside. She has uncontrolled atrial flutter. I again discussed with her about cardioversion. She is asking whether she can be transferred to [facility] for opinion by her own interactive graphic designer Dr. Fortune. Physical Exam Vital Signs: Last Vital Signs Temp 97.2 F 11/10/24 07:25 Pulse 137 H 11/10/24 07:25 Resp 18 11/10/24 07:25 BP 124/59 L 11/10/24 07:25 Pulse Ox 94 11/10/24 07:25 O2 Del Method Nasal Cannula 11/10/24 07:25 O2 Flow Rate 1 11/10/24 07:25 BMI result Body Mass Index 47.5 GENERAL APPEARANCE: in no acute distress, pleasant. NECK: no carotid bruit, no jugular venous distention. SKIN: no suspicious lesions, warm and dry. HEART: no murmurs, regular rate and rhythm. Tachycardic. LUNGS: clear to auscultation bilaterally. ABDOMEN: soft, nontender. EXTREMITIES: no edema. PERIPHERAL PULSES: equal. NEUROLOGIC: No gross deficits, AAO X 3 Objective Labs and Meds 11/09/24 06:50 11/09/24 06:50 Progress Note: A&P Assessment and plan (1) Atrial flutter: Status: Acute Plan Pleasant 69 year female presenting with fatigue and atrial flutter with rapid ventricular response. She is already on Cardizem and Toprol-XL. Cardizem is at 240 mg and Toprol-XL is 100 mg. She is on Xarelto for anticoagulation. Heart rates are poorly controlled. We tried to digoxin loading but that did not help her. I have discussed with her again that cardioversion may help her because we are not making progress with oral medications. Atrial flutter can be difficult to control in general. She wishes to be transferred to [facility] to be seen by her interactive graphic designer group. I have discussed with Dr. Neff and she has currently accepted the patient at [facility]. She will see her in consultation as she gets transferred. Thank you for allowing me to participate in the care of your patient. Please feel free to contact me if you have any questions. Time Spent With Patient Time: Total time managing care of this patient today ____ minutes. Progress Note: Quality Stroke Does the patient have a stroke diagnosis?: No Procedures Date of Service Date of Service: 11/10/24
--- NOTE | 2024-11-10 12:00 | MHC.CM.PN ---
CM met with Patient at bedside, with the assist of a [facility] Concept Artist and addressed IMM with her (original was given to Patient and a copy has been placed on the chart). Patient lives alone in an apartment and she is active with [employer] and [facility] for home O2. Home/resume said services is Patient's goal and CM has initiated and will follow for dc planning. PCP is Dr. Khan and Son or Daughter will transport to home at time of dc. Daughter/Aviva is the HCP.
--- NOTE | 2024-11-10 13:28 | P.DS_ITS ---
DS: Providers Provider Date of Service: 11/10/24 Date of admission: 11/09/24 10:51 Date of discharge: 11/10/24 Primary care physician: Unknown Physician Consults: 11/09/24 08:52 Consult to Cardiology Stat Consulting Provider: [facility] Reason for consultation: Atrial flutter RVR, admitted Has provider been notified: Yes Attending physician on discharge: Derrek Rogers Discharging clinician: Derrek Rogers DS: Diagnosis Discharge Diagnosis (1) Atrial flutter: Status: Acute DS: Summary Hospital Course Hospital Course: HPI:69 y/of COPD with asthma, ACS, pacemaker, nonischemic cardiomyopathy, tachy-alicia syndrome, PAF, MARGOTH, and diastolic dysfunction came withdizziness, lightheadedness, and feeling as though she has a rapid heart rate,in last few hours she has felt dizzy, lightheaded, and like her heart is racing. Patient states that she has not taken her morning medication. she denies any abdominal pain, nausea, vomiting, fever, chills, blurry vision, double vision, loss of vision, chest pain, difficulty breathing, shortness of breath, blood in her urine or stool, syncope or a near syncopal episode, recent trauma or falls. In ED patient received Cardizem drip and also given IV digoxin but heart rate still remain elevated. Patient's symptoms are somewhat improving, denies any chest pain. Patient getting admitted for AFib with RVR. 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 Cardizem and Toprol and continue Xarelto-cardiology discussed the option of cardioversion with the patient patient does not seem interested requesting for [facility] transfer, reached out to patient's open soaper tender Dr. Neff accepted patient for [facility] transfer. in addition patient ventricular rate still in 110-120 despite on cardizem and toprol ,still seems aflutter (?paced); discussed with cardiology -started amiodarone drip as well as metoprolol/cardizem placed on hold,will transfer patient to [facility] -continue amiodarone drip as current rate and patient will be going to [facility] for further management . patient is currently asymptomatic. plan as above. Time Attestation Total time managing care of this patient today: 40 mintues. Discharge Coordination Time (in mins): 40 Quality: Safe Use of Opioids Does Pt have an Active Cancer Diagnosis on the Problem List?: No Quality: Stroke Does the patient have a stroke diagnosis?: No Physical Exam Vital Signs: Vital Signs: Last Vital Signs Temp 97.6 F 11/10/24 12:00 Pulse 98 11/10/24 12:00 Resp 12 11/10/24 12:00 BP 134/76 11/10/24 12:00 Pulse Ox 94 11/10/24 12:00 O2 Del Method Nasal Cannula 11/10/24 12:00 O2 Flow Rate 1 11/10/24 12:00 BMI result Body Mass Index 47.5 Appearance: Alert.? Oriented X3.? cvs: irregular rythem, [id number] , has pacemaker. res: clear to auscultation ,no rhonchii or wheezing abd: no rebound or guarding ,nt, bs present. ext pulses present , no cyanosis. neuro: axo3 , nonfocal. DS: Data Imaging Chest x-ray: Radiologist's impression: ITS Impressions Chest X-Ray 11/09/24 06:12 IMPRESSION: Pulmonary edema, mild to moderate. No cardiomegaly. Electronically signed by: Jasper Lynne MD 11/09/2024 08:00 AM EDT Discharge Plan Discharge Anticipated Discharge Date/Time: 11/10/24 13:20 Patient Disposition: Xfer Acute Care Hospital Discharge Diagnosis: afib rvr Referrals: Physician,Unknown J [Primary Care Provider] - 1 Week Discharge Medications: New amiodarone in dextrose 5 % 900 mg/500 mL (1.8 mg/mL) solution See Rx Instructions .ROUTE .COMPLEX Qty: 1 0RF Rx Instructions: amiodarone 900 mg (1mg/min) as currrently going Continued atorvastatin 40 mg tablet 40 mg PO BEDTIME benztropine 1 mg tablet 1 mg PO BEDTIME magnesium oxide 400 mg (241.3 mg magnesium) tablet 400 mg PO DAILY levothyroxine 112 mcg tablet 112 mcg PO MOTUWETHFRSA@0600 melatonin 5 mg tablet 10 mg PO BEDTIME PRN (Reason: insomnia) nystatin-triamcinolone 100,000-0.1 unit/g-% cream 1 appl TOPICAL BID PRN (Reason: Itching, inflammation) [id number] Tablet 1 tab PO DAILY fluticasone furoate-vilanterol [Breo Ellipta] 100-25 mcg/dose blister with device 1 ea inhalation DAILY albuterol sulfate 90 mcg/actuation HFA aerosol inhaler 2 puff inhalation Q4H PRN (Reason: shortness of breath or wheezing) acetaminophen 500 mg Tablet 500 mg PO Q6H PRN (Reason: Pain) aripiprazole 20 mg tablet 20 mg PO DAILY Invega Sustenna 234 mg/1.5 mL syringe 234 mg IM Q4W levothyroxine 112 mcg tablet 168 mcg PO ALLRED@0600 Xarelto 20 mg tablet 20 mg PO BEDTIME sertraline 25 mg tablet 25 mg PO DAILY sertraline 100 mg tablet 100 mg PO DAILY (DME) Oxygen Home Use Kit See Rx Instructions .Route Rx Instructions: As directed furosemide 20 mg tablet 20 mg PO DAILY PRN (Reason: edema) Qty: 14 1RF Rx Instructions: No further refills through our office - changing providers montelukast [Singulair] 10 mg tablet 10 mg PO BEDTIME 30 Days Qty: 30 11RF Jardiance 10 mg tablet 10 mg PO DAILY Held metoprolol tartrate 100 mg tablet 100 mg PO DAILY Hold Instructions: Resume on 11/14/24. diltiazem HCl 240 mg capsule,extended release 24hr 240 mg PO DAILY Hold Instructions: Resume on 11/14/24. 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 Cardizem and Toprol and continue Xarelto-cardiology discussed the option of cardioversion with the patient patient does not seem interested requesting for [facility] transfer, reached out to patient's open soaper tender Dr. Neff accepted patient for [facility] transfer. in addition patient ventricular rate still in 110-120 despite on cardizem and toprol ,still seems aflutter (?paced); discussed with cardiology will transfer patient to [facility] -continue amiodarone drip as current rate and patient will be going to [facility] for further management . Health Concerns: As above. Plan of Treatment: As above. Assessment: As above. Patient Instructions: A-fib (Atrial Fibrillation) (DC)
--- NOTE | 2024-11-10 16:50 | PC.NURSE ---
At 16:20 pm, this patient was in V tach and A flutter with some etopic beats noted lasting for 5 beats with coupling PVC's. Deines any CP
[2024-11-10] MEDS: dilTIAZem HCL CD 120 MG CAP.ER.DEG PO (20:43)
[2024-11-10] MEDS: Atorvastatin Calcium 40 MG TABLET PO (20:43)
[2024-11-10] MEDS: Montelukast Sodium 10 MG TABLET PO (20:44)
[2024-11-10] MEDS: Benztropine Mesylate 1 MG TABLET PO (20:44)
[2024-11-10] MEDS: Rivaroxaban 20 MG TABLET PO (20:44)
[2024-11-11] VITALS (9 sets, daily range): BP systolic 116–133; BP diastolic 66–89; PULSE 96–134; RESP 13–20; TEMP 36.1–37.2; O2SAT 92–98
--- NOTE | 2024-11-11 | ECG_ITS ---
Test Reason : nsvt Blood Pressure : */* mmHG Vent. Rate : 113 BPM Atrial Rate : 256 BPM P-R Int : * ms QRS Dur : 82 ms QT Int : 180 ms P-R-T Axes : 263 265 175 degrees QTcB Int : 246 ms Atrial flutter with variable A-V block with frequent ventricular-paced complexes Right superior axis deviation Pulmonary disease pattern Right ventricular hypertrophy Nonspecific ST and T wave abnormality Abnormal ECG When compared with ECG of 11-Nov-2024 13:54, Vent. rate has increased by 9 bpm Referred By: Derrek Rogers Electronically Signed By: MIRNA YOUNG MD
[2024-11-11] MEDS: Levothyroxine Sodium 112 MCG TABLET PO (06:30)
[2024-11-11] MEDS: Fluticasone/Vilanterol 100/25 BLST.W.DEV 1 PUFF INHALE (07:45)
[2024-11-11] MEDS: ARIPiprazole 20 MG TABLET PO (08:48)
[2024-11-11] MEDS: Metoprolol Succinate ER 50 MG TAB.ER.24H 150 MG PO (08:48)
[2024-11-11] MEDS: dilTIAZem HCL CD 240 MG CAP.ER.DEG PO (08:48)
[2024-11-11] MEDS: Sertraline HCL 25 MG TABLET PO (08:49)
[2024-11-11] MEDS: Magnesium Oxide 400 MG TABLET PO (08:49)
[2024-11-11] MEDS: Empagliflozin 10 MG TABLET PO (08:49)
[2024-11-11] MEDS: Sertraline HCL 100 MG TABLET PO (08:49)
[2024-11-11] MEDS: Multivitamin TABLET 1 TAB PO (08:49)
[2024-11-11] MEDS: 0.9 % Sodium Chloride Flush 3 ML SYRINGE IVFLUSH (08:52)
--- NOTE | 2024-11-11 11:15 | PC.NURSE ---
pt had 14 beat run of NSVT. pt reporting lightheadness, inpatient services director CP or SOB, Dr. hall notified. at this time VSS except HR in 110-130s.
[2024-11-11 13:29] LABS: Anion Gap 10 (12-20); Blood Urea Nitrogen 15 mg/dL (9-16); Calcium 9.1 mg/dL (8.4-10.2); Carbon Dioxide 27 mmol/L (22-29); Chloride 108 mmol/L (96-108); Estimated Glomerular Filt Rate > 60; Glucose Random 81 mg/dL (60-115); Magnesium 2.1 mg/dL (1.6-2.6); Sodium 141 mmol/L (135-145)
--- NOTE | 2024-11-11 13:39 | ECG_ITS ---
Test Reason : 40 sec run of non-sustained v tach Blood Pressure : */* mmHG Vent. Rate : 104 BPM Atrial Rate : * BPM P-R Int : * ms QRS Dur : 88 ms QT Int : 328 ms P-R-T Axes : * -77 215 degrees QTcB Int : 431 ms Atrial flutter with rapid ventricular response with occasional ventricular-paced complexes and with premature ventricular or aberrantly conducted complexes Left axis deviation Inferior infarct , age undetermined Abnormal ECG When compared with ECG of 09-Nov-2024 06:07, Vent. rate has decreased Referred By: Derrek Rogers Electronically Signed By: MIRNA YOUNG MD
--- NOTE | 2024-11-11 14:11 | P.PNIM_ITS ---
Subjective Subjective Date of Service: 11/11/24 Interval History: afib with rvr Review of Systems hr still elevated 120-130 range has some lightheadness Physical Exam 2 Vital Signs: Vital Signs: Last Vital Signs Temp 97.4 F 11/11/24 13:55 Pulse 124 H 11/11/24 13:55 Resp 18 11/11/24 13:55 BP 120/76 11/11/24 13:55 Pulse Ox 92 11/11/24 13:55 O2 Del Method Room Air 11/11/24 13:55 O2 Flow Rate 2 11/11/24 11:10 BMI result Body Mass Index 47.5 Appearance: Alert.? Oriented X3.? cvs: irregular rythem, [id number] , has pacemaker. res: clear to auscultation ,no rhonchii or wheezing abd: no rebound or guarding ,nt, bs present. ext pulses present , no cyanosis. neuro: axo3 , nonfocal. Objective Data Active Medications Acetaminophen (Acetaminophen 325 Mg Tablet) 650 mg PO Q6H PRN PRN Reason: Pain, Mild 1-3,fever,headache Last Admin: 11/10/24 05:50 Dose: 650 mg Documented By: BHUPINDER Albuterol Sulfate (Albuterol Sulfate 90 Mcg 8 Gm Inhaler) 2 puff INHALE Q4H PRN PRN Reason: shortness of breath or wheezing Aripiprazole (Aripiprazole 20 Mg Tablet) 20 mg PO DAILY [facility] Last Admin: 11/11/24 08:48 Dose: 20 mg Documented By: RC Atorvastatin Calcium (Atorvastatin Calcium 40 Mg Tablet) 40 mg PO BEDTIME [facility] Last Admin: 11/10/24 20:43 Dose: 40 mg Documented By: FILOMENA Benztropine Mesylate (Benztropine Mesylate 1 Mg Tablet) 1 mg PO BEDTIME [facility] Last Admin: 11/10/24 20:44 Dose: 1 mg Documented By: FILOMENA Calcium Carbonate (Calcium Carbonate 750 Mg Tab.Chew) 750 mg PO Q4H PRN PRN Reason: Heartburn Diltiazem HCl (Diltiazem Hcl Cd 240 Mg Cap.Er.Deg) 240 mg PO DAILY [facility]; Protocol Last Admin: 11/11/24 08:48 Dose: 240 mg Documented By: RC Empagliflozin (Empagliflozin 10 Mg Tablet) 10 mg PO DAILY [facility] Last Admin: 11/11/24 08:49 Dose: 10 mg Documented By: RC Fluticasone/Vilanterol (Fluticasone/Vilanterol 100/ Blst.W.Dev) 1 puff INHALE RDAILY [facility] Last Admin: 11/11/24 07:45 Dose: 1 puff Documented By: MARICRUZ Furosemide (Furosemide 20 Mg Tablet) 20 mg PO DAILY PRN; Protocol PRN Reason: edema Amiodarone HCl 900 mg/ Sodium (Chloride) 518 mls @ 34.533 mls/hr IVCONT .Q15H1M [facility]; Protocol Levothyroxine Sodium (Levothyroxine Sodium 112 Mcg Tablet) 112 mcg PO MOTUWETHFRSA@0600 [facility] Last Admin: 11/11/24 06:30 Dose: 112 mcg Documented By: FILOMENA Levothyroxine Sodium (Levothyroxine Sodium 112 Mcg Tablet) 168 mcg PO ALLRED@0600 [facility] Magnesium Hydroxide (Milk Of Magnesia 30 Ml Oral.Susp) 30 ml PO DAILY PRN PRN Reason: Constipation Magnesium Oxide (Magnesium Oxide 400 Mg Tablet) 400 mg PO DAILY [facility] Last Admin: 11/11/24 08:49 Dose: 400 mg Documented By: RC Melatonin (Melatonin 3 Mg Tablet) 6 mg PO BEDTIME PRN PRN Reason: Insomnia Melatonin (Melatonin 3 Mg Tablet) 9 mg PO BEDTIME PRN PRN Reason: insomnia Metoprolol Succinate (Metoprolol Succinate Er 50 Mg Tab.Er.24h) 150 mg PO DAILY [facility]; Protocol Last Admin: 11/11/24 08:48 Dose: 150 mg Documented By: RC Montelukast Sodium (Montelukast Sodium 10 Mg Tablet) 10 mg PO BEDTIME [facility] Last Admin: 11/10/24 20:44 Dose: 10 mg Documented By: FILOMENA Multivitamins/Vitamin C (Multivitamin Tablet) 1 tab PO DAILY [facility] Last Admin: 11/11/24 08:49 Dose: 1 tab Documented By: RC Nystatin/Triamcinolone Acetonide (Nystatin/Triamcinolone Cream 15 Gm Tube) 1 appl TOPICAL BID PRN; Protocol PRN Reason: Itching, inflammation Last Admin: 11/09/24 13:51 Dose: 1 appl Documented By: GAGANDEEP Paliperidone Palmitate (Paliperidone Palmitate 234 Mg/1.5 Ml Syringe) 234 mg IM Q28D [facility] Last Admin: 11/09/24 13:49 Dose: 234 mg Documented By: GAGANDEEP Rivaroxaban (Rivaroxaban 20 Mg Tablet) 20 mg PO BEDTIME [facility] Last Admin: 11/10/24 20:44 Dose: 20 mg Documented By: FILOMENA Sertraline HCl (Sertraline Hcl 25 Mg Tablet) 25 mg PO DAILY [facility] Last Admin: 11/11/24 08:49 Dose: 25 mg Documented By: RC Sertraline HCl (Sertraline Hcl 100 Mg Tablet) 100 mg PO DAILY [facility] Last Admin: 11/11/24 08:49 Dose: 100 mg Documented By: RC Sodium Chloride (0.9 % Sodium Chloride Flush 3 Ml Syringe) 3 ml IVFLUSH QSHIFT [facility] Last Admin: 11/11/24 08:52 Dose: 3 ml Documented By: RC Labs 11/09/24 06:50 11/11/24 12:55 Labs: Laboratory Results - last 24 hr 11/11/24 12:55 Anion Gap 10 L Estim Creat Clear Calc 86.0 Estimated GFR > 60 Random Glucose 81 Calcium 9.1 Magnesium 2.1 Assessment and Plan (1) Atrial fibrillation with RVR: Status: Acute Assessment and Plan: 69F PMH significant for?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 has mild lightheadness Cardiology following:hold cardizem/bb: start iv amio, continue Xarelto. she is agreeable for cardioversion if needed . Also called [facility] but [facility] does not have bed yet. chronic hypoxic respiratory failure with Acute asthma/COPD overlap syndrome. Denies shortness of breath Continue home pulmonary meds chronic HFpEF exacerbation Continue home diuretics HLD Continue statin Hypothyroidism Continue levothyroxine Mood disorder Continue aripiprazole and sertraline Obesity class 3 Encourage weight loss Full Code DVT pptx - xarelto ongoing need -considering symptomatic with AFib with RVR heart rate still elevated-need tele monitoring and rate control medication adjustment, continue Xarelto Quality Stroke Does the patient have a stroke diagnosis?: No VTE Prior VTE?: No VTE Risk Level:: Medical - low VTE Device Contraindication: N/A - Device Ordered VTE Drug Contraindication: N/A - Med Ordered
--- NOTE | 2024-11-11 14:30 | PC.NURSE ---
Addendum entered by Brittany Hampton RN 11/11/24 17:21: pt has pacemaker. This RN found that monitor was not set to pacer mode. changed monitor to pacer mode. Addendum entered by Brittany Hampton RN 11/11/24 17:20: amio drip started per cardiology, see MAR. tolerating well at this time Original Note: pt had 40 second run og NSVT. pt still reporting lightheadedness. pt was at rest during this episode. Dr. Singh. EKG obtained.
[2024-11-11] MEDS: Amiodarone/Dextrose 150 MG/100 ML PLAST..BAG 600 MG IV (14:31)
[2024-11-11] MEDS: Amiodarone HCL 900 MG in 0.9 % Sodium Chloride 500 ML 34.53 MG IVCONT (14:44)
[2024-11-11] MEDS: LORazepam 1 MG TABLET PO (18:18)
--- NOTE | 2024-11-11 19:56 | PC.NURSE ---
Pt. A and O x4. Pt. on Amiodarone drip at 1mg/min. A.Flutter w/ vpaced beats at 125-130 for HR. BP prior to transport at 1954 was 133/68. [facility] to [place] [facility] [place] via phone at 1949. Pt. denies sx. prior to d/charge/[place] [facility]
== END 2024-11-11 19:50 | disposition short-term general hospital (02) | DRG 308 ==
LOC: HO.ED 10:09 → HO.EDOVER 10:51 → HO.IMC 11-10 01:44
PROVIDERS: Emergency Medicine; Physician Assistant Medical; Admitting Provider Internal Medicine; Emergency Provider Emergency Medicine; PCP Internal Medicine; Visit Provider Internal Medicine
DX: I48.0 Paroxysmal atrial fibrillation (principal); I50.33 Acute on chronic diastolic (congestive) heart failure; J96.11 Chronic respiratory failure with hypoxia; Z68.42 Body mass index [BMI] 45.0-49.9, adult; E78.5 Hyperlipidemia, unspecified; G47.33 Obstructive sleep apnea (adult) (pediatric); E66.813 Obesity, class 3; F20.9 Schizophrenia, unspecified; I42.8 Other cardiomyopathies; I49.5 Sick sinus syndrome; Z71.3 Dietary counseling and surveillance; J44.9 Chronic obstructive pulmonary disease, unspecified; Z99.81 Dependence on supplemental oxygen; I48.92 Unspecified atrial flutter; E03.9 Hypothyroidism, unspecified; Z95.0 Presence of cardiac pacemaker; Z20.822 Contact with and (suspected) exposure to COVID-19; Z87.891 Personal history of nicotine dependence; Z79.01 Long term (current) use of anticoagulants; Z79.51 Long term (current) use of inhaled steroids; Z79.899 Other long term (current) drug therapy
CPT/HCPCS: 0241U; 36415; 71045; 80048; 80053; 83690; 83735; 83880; 84443; 84484; 85025; 85730; 93005; 94640; 94660; 99285; J0282; J0283; J1160; J2426

== ENCOUNTER → 2024-11-09 06:12 | Outpatient (BNV) | payer MEDICARE, MEDICAID, SELFPAY | PROVIDERS: Visit Provider Radiology Diagnostic Radiology | DX: I48.0 Paroxysmal atrial fibrillation (principal); J81.0 Acute pulmonary edema | CPT/HCPCS: 71045 ==

== ENCOUNTER 2024-11-09 10:51 | Outpatient (BNV) | payer MEDICARE, MEDICAID, SELFPAY | END 2024-11-11 13:56 | PROVIDERS: Admitting Provider Internal Medicine; Emergency Provider Emergency Medicine; Visit Provider Internal Medicine Cardiovascular Disease | DX: I48.92 Unspecified atrial flutter (principal); R94.31 Abnormal electrocardiogram [ECG] [EKG] | CPT/HCPCS: 93010 ==

== ENCOUNTER → 2024-11-09 10:51 | Outpatient (BNV) | payer MEDICARE, MEDICAID, SELFPAY | PROVIDERS: Admitting Provider Internal Medicine; Emergency Provider Emergency Medicine; Visit Provider Internal Medicine | DX: I48.91 Unspecified atrial fibrillation (principal); I48.92 Unspecified atrial flutter; J96.21 Acute and chronic respiratory failure with hypoxia; J45.21 Mild intermittent asthma with (acute) exacerbation | CPT/HCPCS: 99222; 99231; 99239; 99499 ==

== ENCOUNTER → 2024-11-09 10:51 | Outpatient (BNV) | payer MEDICARE, MEDICAID, SELFPAY | PROVIDERS: Admitting Provider Internal Medicine; Emergency Provider Emergency Medicine; Visit Provider Internal Medicine Cardiovascular Disease | DX: I48.92 Unspecified atrial flutter (principal) | CPT/HCPCS: 93010; 99223 ==

== ENCOUNTER 2024-11-23 10:13 | Outpatient (AMB) | payer MEDICARE, MEDICAID, SELFPAY ==
[2024-11-23 10:28] VITALS: BP 132/80; PULSE 124; O2SAT 93; BMI 52.1
--- NOTE | 2024-11-23 10:28 | MHC.OFFVIS ---
Vital Signs 11/23/24 10:28 Height 5 ft 3 in Weight 294 lb 5.074 oz BMI 52.1 BP 132/80 Blood Pressure Location Rt brachial Position Sitting Pulse 124 H Pulse Source Pulse Oximeter Pulse Oximetry (%) 93 Oxygen Delivery Method Room Air Intake Visit Reasons: Asthma Allergies Seasonal Allergies Allergy (Verified 11/23/24 12:45) Unknown HPI Comments Details: The patient is a 69 old woman a known history atrial fibrillation, asthma and diastolic dysfunction was initially admitted to hospital in July 2021 with severe COVID with COVID pneumonia and respiratory failure. She did have CT of the chest demonstrating bilateral ground-glass opacities and areas of consolidation. She was discharged oxygen. She using the regularly. In addition she was readmitted to the in October atrial fibrillation by rapid ventricular response. Patient is wondering if she has asthma or COPD. And does causing breath. Explained to her that her shortness of breath is multifactorial. She denies any denies any sputum. Denies any chest pains pressure. She does have a tremor is related to medications she has been taking for many years. Patient does daytime drowsiness. Her [place] score is 10/24. The patient needs to undergo a in-lab study. 06/17/2021 the patient is here for a pulmonary follow-up visit. Overall the patient has been feeling little better. She did try the Anoro inhaler but was not effective. She still complaining of shortness of breath time. She also has a history atrial fibrillation so we have to be careful with her beta agonist therapy. In the meantime the patient still has oxygen at. She did undergo an in-lab sleep study demonstrating an AHI of less than 5. However she does have a REM related sleep disorder. During the whole night the patient desaturated down to the high 70s. In addition to that she has been 40 minutes below 88%. Therefore the patient still qualifies for oxygen likely due to her underlying chronic respiratory failure and obstructive airway disease. In addition to that due to COVID infection. The patient already has oxygen through [facility]. Therefore I will send a recent vacation prescription nor for her to continue using the oxygen at 2 L at nighttime. The patient does not qualify for CPAP at this time. I will also provide her with a short-acting beta agonist that she would use only as needed. Needs to be very careful with taking too much albuterol that can potentially worsen her atrial fibrillation control. The patient has been struggling with her weight. She is going to try to cut down on calorie intake increase her activity. Will follow-up sometime the springtime to assess her progress. 12/18/2021 the patient is here for a pulmonary follow-up visit. She continues to have significant daytime drowsiness. Her [place] score still elevated 1224. The patient does not sleep well at night. She has been on the oxygen but does not feel like the oxygen supplementation has been effective for her. She has underlying cardiac history with atrial fibrillation. We did review her sleep study but it looks 6 she was having hard time falling asleep for most of the 1st part of the study. Then she was noted to have significant REM related sleep disorder. The patient will benefit from a repeat study at this time in view of her significant cardiovascular risk and also nocturnal hypoxia. In addition to that the patient has gained weight specially since the pandemic. She was also diagnosed with prediabetes. She knows that if she can lose some weight her breathing was also improved. She continues to have dyspnea on exertion moderate severity. the patient does need some guidance and help with the dietary lifestyle changes. 02/22/2024 the patient is here for a pulmonary follow-up visit. She has had a hard time with her asthma. She has been having worsening wheezing. Moderate severity. She actually went to the ER last time back in November. She was treated and released. The patient did have a chest x-ray which I personally reviewed. No acute respiratory issues noted. The patient does have some wheezing on examination. She does have a picture from for [facility] but she does not use it because she can not tolerate the powder inhalers. The patient has been using her rescue inhaler every 4 hours. Although she has atrial fibrillation and I explained to her that that be an issue. Patient needs to be on maintenance inhaler. She does have wheezing on exam right now. She is willing to try Advair puffer. She can do that twice a day use the albuterol in between. Also should be using singular. Will reassess in 2-3 months. If the patient has any worsening symptoms she will call for an earlier assessment. 05/08/2024 the patient is here for a pulmonary follow-up visit. The patient is without any significant complaints. She has been having some shortness breath with activity. Mild in severity. Although she has significant arthritic knees and difficulty ambulating. The patient also has been having issues with weight. She has gained weight which unfortunately could affect her respiratory capacity. She states that she does have anxiety and she does have issues with stress eating. She is going to work on different strategies to deal with her anxiety. In the meantime when she initially arrived to the office her oxygen was on the low side about 89-90%. We did take it for a walking oximetry in her oxygen did improve to 92% with activity. We talked about the importance of deep breathing exercises. Therefore, we did provide her with incentive spirometer so she can work on at home and also talked about different exercise activity such as a peddler for sitting down where she can exercise while sitting. The patient does not qualify for oxygen supplementation with activity. In addition to that she has been using the oxygen at nighttime. The oxygen nocturnally have been affecting beneficial continue for now. As far any inhaler therapy she is doing better with the Advair. We did go over the mechanism how to use it effectively. Based on the fact that she is a little more hypoxic will go ahead and request a chest x-ray at this time. She will continue with the current respiratory therapy and work on deep breathing exercises. Will follow-up in 6-8 months. If she has any issues prior to that she will call for an earlier assessment. 08/28/2024 the patient is here for a pulmonary follow-up visit. She has been complaining of worsening dyspnea on exertion. Although when she came in her oxygen L flow was the wrong setting at 0.5 liters/minute whenever supposed to be at 2. When she went up to 2 she did feel little better. She still complains of dyspnea on exertion though. Mild to moderate severity. She has been noticing increasing lower extremity edema. She has had some dietary indiscretions because of the holidays. She is aware that she has gained some weight over the holidays and has been noticing increasing swelling. Therefore, will go ahead and develop on her Lasix for the next 5 days to help her with her fluid overload to avoid worsening heart failure. After she gets the additional Lasix she can come in for some blood work next week. She will continue to use the oxygen as prescribed. Continues with respiratory therapy. 11/23/2024 the patient is here for a pulmonary follow-up visit. Since we last spoke the patient had been admitted to [facility] with atrial flutter with rapid ventricular response and subsequently transferred to [facility]. There she was evaluated. She was arranged to undergo a cardiac ablation. In the meantime while she was at [facility] she did have a CT scan of the chest which I personally reviewed demonstrating evidence of mosaic pattern suggesting small airways disease. Also likely to have some degree of pulmonary congestion from her cardiac status. Today when she came in she definitely had an elevated heart rate about 125. We did do an EKG demonstrating a flutter. I did call her softwood faller. Explained to them the situation. Based on her elevated heart rate lower extremity edema and low oxygen levels we opted on transferring the patient to the ER to be evaluated for rate controlling therapies until she can see her softwood faller and hopefully her ablation. [facility] Medical History Chronic restrictive lung disease Nonischemic cardiomyopathy PAF (paroxysmal atrial fibrillation) Nocturnal hypoxemia Morbid obesity Asthma-COPD overlap syndrome Diastolic dysfunction Pneumonitis Schizophrenia, paranoid Afib Schizophrenia Atrial fib/flutter, transient Pneumonia due to COVID-19 virus Pacemaker Hypothyroid Schizophrenia HTN (hypertension) Asthma Surgical History History of cardiac pacemaker Hx of kidney removal Hx of removal of ovary Family History Father Heart disease Mother Heart disease Social History Household Members: None Housing: Apartment Do you presently have visiting nurse or other home services: No Alcohol intake: never Patient Tobacco Use Status: Former Tobacco user Years Smoked: 10 years +/- Smoked in Last 30 Days: No Any prior treatment program specific to substance use: No Advance Directives: Yes Advance Directives on File: Yes Advance Directives Date on File: 10/30/20 Do you have a plan to hurt others: No Plan Nutrition Risks: No Nutritional Risk service: No Current occupational status: disabled Review of Systems Const Denies chills, Reports daytime sleepiness, Reports difficulty sleeping, Denies fatigue, Denies fever(s), Denies frequent falls, Reports snoring, Reports stops breathing during sleep, Denies weakness, Reports weight gain and Denies weight loss ENT Denies dizziness Card Denies chest pain, Denies leg edema, Denies lightheadedness, Denies dyspnea, Reports dyspnea on exertion, Denies orthopnea and Denies other (Loss of consciousness) Resp Reports cough, Denies dyspnea, Reports dyspnea on exertion, Reports snoring and Reports wheezing GI Denies hematochezia and Denies change in bowel habits Musc Denies abnormal gait, Denies muscle weakness, Denies numbness, Denies radiating pain into limb and Denies tingling Neuro Denies abnormal gait, Denies dizziness, Denies frequent falls, Denies numbness, Denies tingling and Denies weakness Endo Denies fatigue Aller/Immun Reports wheezing Physical Exam Vital Signs: Last Vital Signs Pulse 124 H 11/23/24 10:28 BP 132/80 11/23/24 10:28 Pulse Ox 93 11/23/24 10:28 Oxygen Delivery Method Room Air 11/23/24 10:28 BMI result Body Mass Index 52.1 Const General: alert Neck Neck: Yes normal visual inspection, Yes full ROM and Yes no lymphadenopathy Chest Chest palpation & inspection: normal inspection of the chest Resp Auscultation: diminished lung sounds Cardio Rate: tachycardic Rhythm: regular rhythm Heart sounds: S1 normal heart sound present and S2 normal heart sound present GI Palpation (GI): Soft to palpation and nontender Auscultation: normal bowel sounds Skin General skin exam: rashes and/or lesions noted Results Reviewed Results Reviewed: EKG 11/23/2024 aflutter with RVR 120 Assessment & Plan Assessment & Plan (1) Asthma-COPD overlap syndrome: Code(s): J44.9 - Chronic obstructive pulmonary disease, unspecified Category: Medical (2) MARGOTH (obstructive sleep apnea): Code(s): G47.33 - Obstructive sleep apnea (adult) (pediatric) Category: Medical (3) Diastolic dysfunction: Code(s): I51.89 - Other ill-defined heart diseases Category: Medical (4) Chronic restrictive lung disease: Code(s): J98.4 - Other disorders of lung Category: Medical (5) Nonischemic cardiomyopathy: Code(s): I42.8 - Other cardiomyopathies Category: Medical (6) Atrial flutter: Code(s): I48.92 - Unspecified atrial flutter Category: Medical Plan Will Transfer to ED to stabilize aflutter with RVR. I did speak to cardiology an they will see her net week oxygen 2 L at nighttime while sleepin continue Advair BID continue LEONCIO as needed continue Singulair follow-up 3-4 months Coding Level of Care Code Est Pt Level 5 (41249) Diagnoses Asthma-COPD overlap syndrome J44.9 MARGOTH (obstructive sleep apnea) G47.33 Diastolic dysfunction I51.89 Chronic restrictive lung disease J98.4 Nonischemic cardiomyopathy I42.8 Atrial flutter I48.92 Time Spent (min) 60
--- OUTSIDE RECORDS SUMMARY | 2024-11-23 11:04 | XMS_ITS | Encounter Summary ---
Author Organization [facility] [place] [address] Care Team Providers Care Airport Operations Officer Name Role Phone Masoud Khan MD Primary Care Provider [phone] Reason for Visit * Reason Onset Date Comments Appointment 11/21/2024 Encounter Details Date Type Department Care Team (Late st Contact Info) Description 11/21/2024 Telephone [facility] 154 300 [facility] 154 [place] [phone] Carrol Fortune MD 300 [place] [address] Appointment Social History Tobacco Use Types Packs/Day Years [...] encounter Progress Notes * Shira Win - 11/21/2024 1:36 PM EDT Duplicate request see encounter 11/14/24 * James Nunez - 11/21/2024 1:16 PM EDT Hospital Follow Up Diagnosis:Shortness of breath Hospital: [facility] Consulted by: Dr Devi/Nae Melton Discharged on:11/17/24 Care team:Dr Fortune and Satnam Garcia Patient rather us call her daughter to schedule this appointment. Th daughters name is Glo and her phone number is [phone]. documented in this encounter Plan of Treatment Upcoming Encounters Date Type Department Care Team (Late st Contact Info) Description 11/28/2024 1:00 PM EDT Office Visit Adult Medicine [address] [phone] Masoud Khan MD [address] [place] [address] 01/02/2025 11:15 AM EDT Office Visit Adult [address] [phone] Masoud Khan MD [address] [place] [address] 02/05/2025 9:10 AM EDT Office Visit [facility] [address] [phone] Satnam Garcia, KARLY [address] [place] [address] documented as of this encounter Visit Diagnoses Not on filedocumented in this encounter Care Teams Airport Operations Officer Relationship Specialty Start Date End Date Masoud Khan MD [address] [place] [address] PCP - General Internal Medicine 10/25/24 documented as of this encounter
--- OUTSIDE RECORDS SUMMARY | 2024-11-23 11:04 | XMS_ITS | Encounter Summary ---
Author Organization [employer] Address [address] [place] [address] Care Team Providers Care Associate Account Director Name Role Phone Masoud Khan MD Primary Care Provider [phone] Encounter Details Date Type Department Care Team (Late st Contact Info) Description 11/14/2024 Telephone [facility]iology [facility] [address] [facility] [address] [place] [phone] Nae Melton, WEED CONTROL INSPECTOR [address] [facility] 154 [place] [address] Social History Tobacco Use Types Packs/Day Years [...] Progress Notes * Shira Win - 11/21/2024 2:33 PM EDT Patient will see Electrophysiology. Out patient scheduling will take this task over. No hospital follow up needed. * Pema Cates - 11/20/2024 2:46 PM EDT I called patients daughter Glo and left a voicemail asking her to call back so we may schedule ahospital follow up visit for Shahla to see Satnam Garcia. Please transfer her to me when she callsback. * Najma Alcazar RN - 11/16/2024 9:27 AM EDT Noted. * Anthony Brown - 11/16/2024 9:22 AM EDT Spoke to patients daughter today, Michaela was brought back to [facility] ER 11/15/24, she is unsure if she got admitted from there, We will call back when she is discharged to schedule her hospital follow up Hospital Follow Up Diagnosis: [facility] Hospital: [facility] Consulted by: Tawanda 11/12/24 Discharged on: 11/14/24 Care team: ROMULO DUMONT 10/30/24 sick [facility] Hospital Follow Up Diagnosis: ? Hospital: [facility] Consulted by: ? Discharged on: 11/15/24 - ? Care team: ROMULO * Nae Melton NP - 11/14/2024 1:20 PM EDT Pls arrange HFU with Satnam/SAHIL s/p CARITO p afib, DCCV 3ish weeks Home today Pls arrange Ep eval with SR for afib ablation (pls check [facility] in a day or two--there was a problem with the dictation system, he may have already seen her) Thank you documented in this encounter Plan of Treatment Upcoming Encounters Date Type Department Care Team (Late st Contact Info) Description 11/28/2024 1:00 PM EDT Office Visit Adult Medicine [address] [phone] Masoud Khan MD [address] [place] [address] 01/02/2025 11:15 AM EDT Office Visit Adult Medicine [address] [phone] Masoud Khan MD [address] [place] [address] 02/05/2025 9:10 AM EDT Office Visit [facility] [address] [phone] Satnam Garcia NP 300 [place] [address] documented as of this encounter Visit Diagnoses Not on filedocumented in this encounter Care Teams Associate Account Director Relationship Specialty Start Date End Date Masoud Khan MD [address] [place] [address] PCP - General Internal Medicine 10/25/24 documented as of this encounter
--- OUTSIDE RECORDS SUMMARY | 2024-11-23 11:04 | XMS_ITS | Encounter Summary ---
Author Organization [facility] Address [address] [place] [address] Care Team Providers Care Planogrammer Name Role Phone Masoud Khan MD Primary Care Provider [phone] Reason for Visit * Reason Onset Date Comments Medication Problem 11/08/2024 Encounter Details Date Type Department Care Team ([facility] st Contact Info) Description 11/08/2024 Telephone Adult Medicine [facility] [address] [place] [phone] Masoud Khan MD [address] [place], [place] [phone] Medication Problem Social History Tobacco Use Types [...] herto tell her doctor to call Marybel [phone]. She is not sure if this is [...] 1:00 PM EDT Office Visit Adult Medicine [address] [phone] Masoud Khan MD [address] [place] [address] 01/02/2025 11:15 AM EDT Office Visit [address] [phone] Masoud Khan MD [address] [place] [address] 02/05/2025 9:10 AM EDT Office Visit [facility] - [facility] 154 300 [facility] 154 [place] [phone] Satnam Garcia NP 300 [place] [address] documented as of this encounter Visit Diagnoses Not on filedocumented in this encounter Care Teams Planogrammer Relationship Specialty Start Date End Date Masoud Khan MD [address] [place] [address] PCP - General Internal Medicine 10/25/24 documented as of this encounter
--- OUTSIDE RECORDS SUMMARY | 2024-11-23 11:04 | XMS_ITS | Encounter Summary ---
Author Organization [facility] Address [address] [place] [address] Care Team Providers Care Radiologic Technology Program Director Name Role Phone Masoud Khan MD Primary Care Provider [phone] Reason for Visit * Reason Onset Date Comments triage 11/21/2024 Hospital Follow-up 11/21/2024 Encounter Details Date Type Department Care Team ([facility] st Contact Info) Description 11/21/2024 Telephone Adult Medicine [address] [phone] Masoud Khan MD [address] [place] [address] triage; Hospital Follow-up Social History Tobacco Use Types Packs/Day Years [...] Progress Notes * Saloni Rocha RN - 11/21/2024 12:28 PM EDT Pt booked for 11/28 at 1:00 with PCP Pt was in the hospital for rapid HR is seeing cardiology also, she ws started on amiodarone and metoprolol, [facility] nurse gave pt monitor and advised her to call or go to the ed for elevated HR, denies any symptoms now nurse will see pt again next week, pt is with her daughter now, no symptoms * Michael Randhawa LPN - 11/21/2024 12:09 PM EDT Please review message from [facility] * Sayra Solorzano - 11/21/2024 11:53 AM EDT [facility]NA CALL Which [facility] office is calling? Ugo Iverson Full name of caller: Grace The caller is Nurse Is the caller at the patients home?: yes Reason for call: FYI for provider pt heart rate is 124. Also requesting a hospital follow up discharged 11/17/24 Does caller need an urgent call back? yes Was CONTACT Telephone # obtained above?: yes Fax #: documented in this encounter Plan of Treatment Upcoming Encounters Date Type Department Care Team (Late st Contact Info) Description 11/28/2024 1:00 PM EDT Office Visit Adult Medicine [address] [phone] Masoud Khan MD [address] [place] [address] 01/02/2025 11:15 AM EDT Office Visit Adult [address] [phone] Masoud Khan MD [address] [place] [address] 02/05/2025 9:10 AM EDT Office Visit [facility] [address] [facility] 154 [place] [phone] Satnam Garcia, SWIMMING INSTRUCTOR [address] [place] [address] documented as of this encounter Visit Diagnoses Not on filedocumented in this encounter Care Teams Radiologic Technology Program Director Relationship Specialty Start Date End Date Masoud Khan MD [address] [place] [address] PCP - General Internal Medicine 10/25/24 documented as of this encounter
--- OUTSIDE RECORDS SUMMARY | 2024-11-23 11:04 | XMS_ITS | Encounter Summary ---
Author Organization [facility] Address [address] [place] [address] Care Team Providers Care Design Inserter Name Role Phone Masoud Khan MD Primary Care Provider [phone] Reason for Visit * Reason Onset Date Comments Hospital Follow-up 11/15/2024 Encounter Details Date Type Department Care Team ([facility] Contact Info) Description 11/15/2024 Telephone Adult Medicine [facility] [place] [address] [place] [phone] Masoud Khan MD [address] [place] [address] Hospital Follow-up Social History Tobacco Use Types [...] as of this encounter Progress Notes * Lisa Penaloza RN - 11/15/2024 1:13 PM EDT Called and spoke to two daughters on phone . The daughter that is with pt. States she is doing fineright now and not c/o of anything and after she took her BH medication felt better, taking her BH medication may not be the cause of her nausea, dizziness and weakness she had earlier and just being cardioverted and having possible recurrence of a-fib could be the cause . I informed them if she were fall from dizziness and hit her head , being on the blood thinner could be detrimental. Pt. Lives alone . They agreed to bring her to the ER. * Sayra Solorzano - 11/15/2024 12:55 PM EDT Patient is calling back with daughter stating that she was only feeling lighted headed due to her not taking her medication. Patient is calling back looking to schedule her hospital follow up appt. Please advise * Lisa Penaloza RN - 11/15/2024 11:15 AM EDT Spoke with daughter Pt. Discharged from [facility] and ? Cardioverted. She is at home . Called pt. With daughter on the line. Pt. Feels nauseated and dizzy , I advised pt. And daughter to call 911 and daughter will also call other sister who lives near mother to go to her house after they call 911 * Sherwin Garland - 11/15/2024 9:15 AM EDT Patient states she feels light headed right now Hospital/ER follow up appointment needed Hospital patient was treated at: [facility], [facility] Was this only an ER visit or was the patient admitted to the hospital? Admitted to the hospital/kept overnight Date of visit if ER visit only: If patient was admitted what was the date of discharge? 11/14/24 Reason/diagnosis for visit or stay: High heart rate , was light headed When was the patient told to follow up? Within a few days Was visit or stay related to an injury? If yes, what was the date of injury (DOI)? No If yes, was the injury due to: Not 3rd libertarian related documented in this encounter Plan of Treatment Upcoming Encounters Date Type Department Care Team (Late st Contact Info) Description 11/28/2024 1:00 PM EDT Office Visit [address] [phone] Masoud Khan MD [address] [place] [address] 01/02/2025 11:15 AM EDT Office Visit [address] [phone] Masoud Khan MD [address] [place] [address] 02/05/2025 9:10 AM EDT Office Visit [facility] [address] [phone] Satnam Garcia BUSINESS REPRESENTATIVE [address] [place] [address] documented as of this encounter Visit Diagnoses Not on filedocumented in this encounter Care Teams Design Inserter Relationship Specialty Start Date End Date Masoud Khan MD [address] [place] [phone] PCP - General Internal Medicine 10/25/24 documented as of this encounter
--- OUTSIDE RECORDS SUMMARY | 2024-11-23 11:04 | XMS_ITS | Clinical Summary ---
Author Organization [facility] [address] [facility] Address [address] [place] [address] [place] [address] Phone Care Team Providers Care Food Processing Plant Manager Name Role Phone Masoud Khan MD [...] each day. 90 tablet 1 025 Active fluticasone furoate-vilante roL (Breo Ellipta) 100-25 mcg/dose [...] denies any abnormal bleeding. She has a NYW7OO0-RXDd score of 5, and should remain anticoagulated. Orders: Ambulatory referral to Cardiology ECG 12 lead Basic metabolic panel; Future CAD (coronary artery disease) 04/08/2020 Overview (06/30/2024): [place] had a nuclear stress test that showed distal septal ischemia. Assessment & Plan (10/30/2024 11:35 AM EDT): Patient denies any anginal symptoms today. Continue on current medication regiment which includes metoprolol, statin. Sick sinus syndrome 02/13/2020 Assessment & Plan (10/30/2024 11:35 AM EDT): Patient has pacemaker in. She is establishing care with our device clinic today. She is switching from [employer]. Will have her continue to do device [...] Encounters Date Type Department Care Team Description 11/21/2024 Telephone [facility] - [facility] [address] [facility] 154 [place] [address] Carrol Fortune MD Appointment 11/21/2024 Telephone Adult Medicine [address] [phone] Masoud Khan MD triage; Hospital Follow-up 11/15/2024 Telephone Adult Medicine [address] [phone] Masoud Khan MD Hospital Follow-up 11/14/2024 Telephone [facility] Cardiology [address] [place] [address] Nae Melton NP 11/08/2024 Telephone Adult Medicine [address] [phone] Masoud Khan MD Medication Problem 11/07/2024 9:30 AM EDT Ancillary Procedure [facility] - [address] [place] [phone] 11/07/2024 Telephone Adult Medicine [address] [phone] Masoud Khan MD Medication Problem 11/07/2024 Telephone [facility] - [address] [place] [phone] Marcela Lea PA 11/03/2024 Telephone Adult Medicine [address] [phone] Masoud Khan MD Fitting for DME 10/30/2024 9:10 AM EDT Office Visit [facility] Cardiology [facility] - [address] [place] [address] Satnam Garcia NP Sick sinus syndrome (CMS/HCC) (Primary Dx); Coronary artery disease involving [place] coronary artery of [place] heart without angina pectoris; Chronic diastolic (congestive) heart failure (CMS/HCC); Paroxysmal atrial fibrillation (CMS/HCC); Hypercholesterolemia; Essential hypertension, benign 10/30/2024 Telephone [facility] Cardiology [facility] - [address] [place] [phone] Satnam Garcia NP 10/10/2024 Telephone Adult [address] [phone] Masoud Khan MD provider call back 10/03/2024 9:05 AM EST Lab Draw [address] Prediabetes; Acquired hypothyroidism; Hypokalemia; Chronic diastolic (congestive) heart failure (CMS/HCC) 10/02/2024 9:30 AM EST Office Visit Adult [address] [phone] Masoud Khan MD Hospital discharge follow-up (Primary Dx); Chronic respiratory failure with hypoxia (CMS/HCC); Moderate persistent asthma with exacerbation; MARGOTH on CPAP; Hypokalemia; Chronic diastolic (congestive) heart failure (CMS/HCC); Paroxysmal atrial fibrillation (CMS/HCC); Essential hypertension, benign; Coronary artery disease involving [place] coronary artery of [place] heart without angina pectoris; Acquired hypothyroidism; Schizoaffective disorder, unspecified type (CMS/HCC); Prediabetes; Encounter for screening mammogram for malignant neoplasm of breast; Need for vaccination against Streptococcus pneumoniae 09/28/2024 Telephone Adult [address] [phone] [place] triage 09/28/2024 Telephone [facility] - [facility] [address] [place] [phone] Satnam Garcia NP 09/25/2024 Telephone Adult Medicine [address] [phone] Masoud Khan MD Flu Symptoms 09/22/2024 Telephone Adult [address] [phone] Masoud Khan MD Cough 09/22/2024 Telephone Adult [address] [phone] Masoud Khan MD 09/21/2024 Telephone Adult Medicine [address] [phone] Masoud Khan MD Fever; Sore Throat 09/07/2024 Telephone [facility] Cardiology [facility] - [address] [place] [phone] Satnam Garcia NP d/c amiodarone 09/04/2024 1:10 PM EST Office Visit [facility] Cardiology [facility] - [address] [place] [address] Satnam Garcia NP Hospital discharge follow-up; Chronic diastolic (congestive) heart failure (CMS/HCC); Paroxysmal atrial fibrillation (CMS/HCC); Essential hypertension, benign; MARGOTH on CPAP; Coronary artery disease involving [place] coronary artery of [place] heart without angina pectoris; Chronic respiratory failure with hypoxia (CMS/HCC); Moderate persistent asthma without complication; Acquired hypothyroidism; Schizoaffective disorder, unspecified type (CMS/HCC) 08/29/2024 Telephone [facility] - [address] [place] [address] Satnam Garcia NP Med Refill (Furosemide, Amiodarone ) from Last 3 Months Immunizations Name Administration Dates Next Due Influenza trivalent, 0.5mL ( Fluad) 65yo and older 04/30/2022,05/13/2021 Influenza trivalent, 0.5mL ( Fluzone High-dose) 65yo and older 06/27/2024,04/30/2022,05/13/2021 Pneumococcal conjugate 20 va lent (Prevnar 20, PCV 20) 2mo and older 10/02/2024 Surgical History Surgery Date Site/Laterality Comments OTHER SURGICAL HISTORY PROCEDURE: ND SALPINGO-OOPHORECTOMY COMPL/PRTL UNI/BI SPX; COMMENT: age 20's removed ROV, cyst OTHER SURGICAL HISTORY PROCEDURE: ND EXCISION PILONIDAL CYST/SINUS COMPLICATED OTHER SURGICAL HISTORY 02/15/2017 Right PROCEDURE: ND LAPAROSCOPY SURG PARTIAL NEPHRECTOMY; COMMENT: Dr. Patterson Medical History Medical History Date Comments Osteoarthritis 05/29/2009 DX:Osteoarthriti s Hypothyroid 05/29/2009 DX:Hypothyroid Hypercholesterolemia 05/29/2009 DX:Hypercho lesterolemia Anxiety 05/29/2009 DX:Anxiety Depression 05/29/2009 DX:Depression Schizoaffective disorder ([facility]) DX:Schizoaffective disorder ([facility]); COMMENT: dr Renetta muller [facility] Angiomyolipoma of kidney DX:Any omyolipoma of kidney Morbid obesity with BMI of 4 5.0-49.9, adult ([facility]) 11/16/2013 DX:Morbid obesity with BMI o f 45.0-49.9, adult ([facility]); COMMENT: BMI 55.8 on 10/16/13. Diastolic dysfunction [...] 1:00 PM EDT Office Visit Adult Medicine [address] [phone] Masoud Khan MD [address] [place] [address] 01/02/2025 11:15 AM EDT Office Visit [address] [phone] Masoud Khan MD [address] [place] [address] 02/05/2025 9:10 AM EDT Office Visit [facility] 154 300 [facility] 154 [place] [phone] Satnam Garcia, KARLY [address] [place] [address] Health Maintenance Due Date Last Done Comments DTaP,Tdap,and Td Vaccines (1 - Tdap) 1974 Zoster Vaccines (1 of 2) 2005 RSV Immunization Adult Patients (1 - Risk 60-74 years 1-dose series) [...] this topic Medical Devices Implanted Type Area Mental Retardation Nurse Device Identifier Shelf Expiration Date Model / Serial / Lot [facility] 2272 Assurity Mri(Tm) [id number] Implanted: (Quantity not on file) Cardiac Pacemaker [employer]- [employer] 2272 ASSURITY MRI(TM) / [id number] / Procedures Procedure Name Priority Date/Time Associated [...] 9:27 AM EDT) Date Time Interrogation Session [id number] CV DEVICE CHECK Type Interrogation Session Remote Scheduled CV DEVICE CHECK Implantable Pulse Generator Mental Retardation Nurse [facility] CV DEVICE CHECK Implantable Pulse Generator Type IPG CV DEVICE CHECK Implantable Pulse Generator Model 2272 Assurity MRI(TM) CV DEVICE CHECK Implantable Pulse Generator Serial Number [id number] CV DEVICE CHECK Implantable Pulse Generator Implant Date [id number] CV DEVICE CHECK Battery Remaining Percentage 48.00 CV DEVICE CHECK Battery Remaining Longevity 43.0 CV DEVICE CHECK Battery Voltage 2.950 CV D EVICE CHECK Battery GUARD CHIEF Trigger 2.600 CV DEVICE CHECK Battery Status Middle of Service CV DEVICE CHECK Santi Statistic RA Percent Paced 67.00 CV DEVICE CHECK Santi Statistic RV Percent Paced 18.00 CV DEVICE CHECK Atrial Tachy Statistic AT/AF [place] Percent 25.00 CV DEVICE CHECK Lead Channel [...] this? Marcela RIBEIRO CV IMPLANTABLE CARDIAC DEVICE ND OCEDURES Final Result * (ABNORMAL) Thyroid stimulating hormone with reflex to free t4 and free t3 (10/03/2024 9:14 AM EST) TSH 5.06(H) 0.40 - 4.00 mcIU/mL LAB CHEMISTRY METHOD 10/03/2024 1:01 PM EST [facility] Blood Venous blood specimen / Unknown Venipuncture / Unknown 10/03/2024 9:14 AM EST 10/03/2024 9:14 AM EST Masoud Khan MD LAB BLOOD ORDERABLES Final Result [facility] [address] [place] [address], [place] [phone] * Free thyroxine with reflex to free triiodothyronine (10/03/2024 9:14 AM EST) Free T4 1.44 0.70 - 1.80 ng/dL LAB CHEMISTRY METHOD 10/03/2024 1:26 PM EST [facility] Blood Venous blood specimen / Unknown Venipuncture / Unknown 10/03/2024 9:14 AM EST 10/03/2024 9:14 AM EST Masoud Khan MD LAB BLOOD ORDERABLES Final Result Performing Organization Address [facility]/ZIP Co de Phone Number [facility] [address] [place] [address], [place] [phone] * Triiodothyronine free (10/03/2024 9:14 AM EST) Pathologist [facility] T3, Free 254 230 - 420 pcg/dL LAB CHEMISTRY METHOD 10/03/2024 1:52 PM EST [facility] Blood Venous blood specimen / Unknown Venipuncture / Unknown 10/03/2024 9:14 AM EST 10/03/2024 9:14 AM EST Masoud Khan MD LAB BLOOD ORDERABLES Final Result Performing Organization Address [facility] Co de Phone Number [facility] [address] [place] [address], [place] [phone] * Magnesium (10/03/2024 9:14 AM EST) [facility] Magnesium 2.1 1.9 - 2.6 mg/dL LAB CHEMISTRY METHOD 10/03/2024 12:55 PM EST [facility] Blood Venous blood specimen / Unknown Venipuncture / Unknown 10/03/2024 9:14 AM EST 10/03/2024 9:14 AM EST Masoud Khan MD LAB BLOOD ORDERABLES Final Result Performing Organization Address City/[facility]/ZIP Co de Phone Number [facility] [address] [place] [address], [place] [phone] * Hemoglobin A1c (10/03/2024 9:14 AM EST) [facility] Hemoglobin A1C 5.9 <6.5 % LAB CHEMISTRY METHOD 10/03/2024 1:14 PM EST [facility] Mean Bld Glu Estim. 123 mg/dL LAB CHEMISTRY METHOD 10/03/2024 1:14 PM [facility] Blood Venous blood specimen / Unknown Venipuncture / Unknown 10/03/2024 9:14 AM EST 10/03/2024 9:14 AM EST us Masoud Khan MD LAB BLOOD ORDERABLES Final Result [facility] [address] [place] [address], * (ABNORMAL) Basic metabolic panel (10/03/2024 9:14 AM EST) Sodium 140 133 - 145 mmol/L LAB CHEMISTRY METHOD 10/03/2024 12:57 PM [facility] Potassium 4.2 3.5 - 5.5 mmol/L LAB CHEMISTRY METHOD 10/03/2024 12:57 PM [facility] Chloride 102 96 - 110 mmol/L LAB CHEMISTRY METHOD 10/03/2024 12:57 PM [facility] CO2 34(H) 21 - 32 mmol/L LAB CHEMISTRY METHOD 10/03/2024 12:57 PM [facility] Anion Gap 4 3 - 11 LAB CHEMISTRY METHOD 10/03/2024 12:57 PM [facility] Glucose 97 70 - 100 mg/dL LAB CHEMISTRY METHOD 10/03/2024 12:57 PM [facility] BUN 22 5 - 25 mg/dL LAB CHEMISTRY METHOD 10/03/2024 12:57 PM [facility] Creatinine 0.80 0.50 - 1.10 mg/dL LAB CHEMISTRY METHOD 10/03/2024 12:57 PM [facility] eGFR 80 >=60 mL/min/1. 73m2 LAB CHEMISTRY METHOD 10/03/2024 12:57 PM [facility] Comment:Calculation based on the??Chronic Kidney Disease Epidemiology Collaboration (CKD-EPI) equation refit??without adjustment for race. BUN/Creatinine Ratio 27.5 LAB CHEMISTRY METHOD 10/03/2024 12:57 PM EST [facility] Calcium 9.3 8.5 - 10.5 mg/dL LAB CHEMISTRY METHOD 10/03/2024 12:57 PM EST [facility] Blood Venous blood specimen / Unknown Venipuncture / Unknown 10/03/2024 9:14 AM EST 10/03/2024 9:14 AM EST Masoud Khan MD LAB BLOOD ORDERABLES Final Result [facility] [address] [place] [address], [place] [phone] * ECG 12 lead (09/04/2024 4:49 PM EST) Ventricular Rate ECG 64 BPM GEMUSE Atrial Rate 43 BPM GEMUSE QRS Duration 200 ms GEMUSE Q-T Interval 530 ms GEMUSE QTc 546 ms GEMUSE R Allow[place] -31 degrees GEMUSE T Alloway 109 degrees GEMUSE ECG Interpretation Ventricular-pa jose miguel rhythm with frequent Premature ventricular complexes Abnormal ECG When compared with ECG of 16-JUN-2019 14:10, Electronic ventricular pacemaker has replaced Sinus rhythm Confirmed by Khris ENNIS JOHN ([id number]) on 09/04/2024 10:30:26 PM GEMUSE 09/04/2024 1:10 PM EST 09/04/2024 10:30 PM EST Satnam Garcia NP ECG ORDERABLES Edited Result - Final GEMUSE [...] Recommendation: Routine annual screening mammography is recommended us Masoud Khan MD IMG XR PROCEDURES Final Res ult * (ABNORMAL) Lipid panel (10/31/2021) LDL/HDL Ratio 4 Triglycerides 200(A) 0 - 150 mg/dL Cholesterol 156 0 - 200 mg/dL HDL 45 >=40 mg/dL LDL Cholesterol 71 0 - 100 mg/dL Blood Venous blood specimen / Unknown us Historical Provider LAB BLOOD ORDERABLES Marilee su Result * DXA BONE DENSITY STUDY 1+ SITS AXIAL SKEL (10/07/2021 11:30 AM EST) Anatomical Region Laterality Modality Bone Densitometr y 09/02/2021 1:37 PM EST Narrative 10/07/2021 5:21 PM EST Clinical history: menopausal/postmenopausal disorder Scans of the lumbar spine and hips were performed on a [employer]/tenKsolar fan beam bone densitometer. ? Bone mineral [...] spine and hips were performed on a Affine[employer]fan beam bone densitometer. Bone mineral density measurements [...] with fractures Tano RIBEIRO IMG DXA PROCEDURES Final Result * Colonoscopy (05/30/2019) Colonoscopy No Interpretation , Abstracted Anatomical Region Laterality Modality Other Historical Provider HEALTH MAINTENANCE Final Result * Hepatitis C Screening (06/27/2013) Hepatitis C Screening Abstracted Historical Provider HEALTH MAINTENANCE Final Result from Last 3 Months or Most Recently Relevant to Health Maintenance Insurance MEDICARE MEDICAID - [place] Care Teams Food Processing Plant Manager Relationship Specialty Start Date End Date Masoud Khan MD [address] [place] [phone] PCP - General Internal Medicine 10/25/24
== END 2024-11-23 15:42 | disposition home or self-care (01) ==
LOC: HO.HPS 10:13
PROVIDERS: PCP Internal Medicine; Visit Provider Hospitalist
DX: J44.9 Chronic obstructive pulmonary disease, unspecified (principal); G47.33 Obstructive sleep apnea (adult) (pediatric); I51.89 Other ill-defined heart diseases; J98.4 Other disorders of lung; I42.8 Other cardiomyopathies; I48.92 Unspecified atrial flutter
CPT/HCPCS: 99215

== ENCOUNTER → 2024-11-23 10:13 | Outpatient (BNVA) | payer MEDICARE, MEDICAID, SELFPAY | PROVIDERS: PCP Internal Medicine; Visit Provider Hospitalist ==

== ENCOUNTER 2024-11-23 12:10 | Inpatient (IN) | payer MEDICARE, MEDICAID, SELFPAY ==
[2024-11-23] VITALS (11 sets, daily range): BP systolic 108–154; BP diastolic 50–109; PULSE 100–121; RESP 15–22; TEMP 36.3–36.9; O2SAT 95–99; BMI 52.1
--- NOTE | ~2024-11-23 | XR_ITS ---
EXAMINATION: XR CHEST 1 VIEW HISTORY: Rapid AFib COMPARISON: Comparison is made with the prior examination dated 11/09/2024. FINDINGS: Two AP portable views of the chest performed at 1:44 PM are submitted. A left subclavian dual-chamber pacemaker is unchanged in position. The lungs are expanded and clear. There is no pleural effusion, pneumothorax, or pulmonary vascular congestion. The heart is normal in size. The bones are intact. XR/XR chest 1V IMPRESSION: No acute cardiopulmonary abnormality. Electronically signed by: Kem Epperson MD 11/23/2024 01:56 PM EDT
--- NOTE | 2024-11-23 12:15 | ECG_ITS ---
Test Reason : DIF BREATHING/ ABNORMAL BREATHING Blood Pressure : */* mmHG Vent. Rate : 121 BPM Atrial Rate : 242 BPM P-R Int : * ms QRS Dur : 82 ms QT Int : 294 ms P-R-T Axes : 153 -49 47 degrees QTcB Int : 417 ms Atrial flutter with 2:1 A-V conduction Left axis deviation Abnormal ECG When compared with ECG of 11-Nov-2024 13:56, No significant changes seen Referred By: Generic ED Physician Electronically Signed By: LISSETTE EDMONDS
--- NOTE | 2024-11-23 12:40 | ED_ITS ---
HPI - General Adult General Chief complaint: Arrhythmia/Palpitations Stated complaint: abnormal ekg Time Seen by Provider: 11/23/24 12:54 Source: patient and family (Daughter) Mode of arrival: ambulatory Limitations: no limitations History of Present Illness ED Provider: DR. 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 Patient otherwise has no complaints, no palpitation, no CP, no dizziness or syncopal episodes. Related Data Home Medications ?Medication ?Instructions ?Recorded ?Confirmed levothyroxine 112 mcg tablet 112 mcg PO MOTUWETHFRSA@0600 07/30/20 11/09/24 magnesium oxide 400 mg (241.3 mg 400 mg PO DAILY 07/30/20 11/09/24 magnesium) tablet melatonin 5 mg tablet 10 mg PO BEDTIME PRN insomnia 07/30/20 11/09/24 kkybvfieyxos-tdctcphd-accaha tablet 1 tab PO DAILY 01/11/22 11/09/24 sertraline 25 mg tablet 25 mg PO DAILY 05/11/23 11/09/24 atorvastatin 40 mg tablet 40 mg PO BEDTIME 09/21/23 11/09/24 Oxygen Home Use 05/08/24 07/17/24 sertraline 100 mg tablet 100 mg PO DAILY 05/08/24 11/09/24 empagliflozin 10 mg tablet 10 mg PO DAILY 07/17/24 11/09/24 (Jardiance) aripiprazole 20 mg tablet 20 mg PO DAILY 09/22/24 11/09/24 diltiazem HCl 240 mg 240 mg PO DAILY 09/22/24 11/09/24 capsule,extended release 24 hr levothyroxine 112 mcg tablet 168 mcg PO ALLRED@0600 09/22/24 11/09/24 paliperidone palmitate 234 mg/1.5 234 mg IM Q4W 09/22/24 11/09/24 mL intramuscular syringe (Invega Sustenna) rivaroxaban 20 mg tablet (Xarelto) 20 mg PO BEDTIME 09/22/24 11/09/24 acetaminophen 500 mg tablet 500 mg PO Q6H PRN Pain 11/09/24 11/09/24 albuterol sulfate 90 mcg/actuation 2 puff inhalation Q4H PRN 11/09/24 11/09/24 aerosol inhaler shortness of breath or wheezing benztropine 1 mg tablet 1 mg PO BEDTIME 11/09/24 11/09/24 metoprolol tartrate 100 mg tablet 100 mg PO DAILY 11/09/24 11/09/24 amiodarone 200 mg tablet 200 mg PO DAILY 11/23/24 fluticasone propionate 230 2 puff inhalation BID 11/23/24 mcg-salmeterol 21 mcg/actuation HFA inhaler (Advair HFA) Previous Rx's ?Medication ?Instructions ?Recorded montelukast 10 mg tablet 10 mg PO BEDTIME 30 days #30 tabs 02/22/24 (Singulair) furosemide 20 mg tablet 20 mg PO DAILY PRN edema #14 tabs 08/28/24 amiodarone 900 mg/500 mL (1.8 See Rx Instructions .Route 11/11/24 mg/mL) in dextrose 5 % intravenous .COMPLEX #1 mL soln Allergies Allergy/AdvReac Type Severity Reaction Status Date / Time Seasonal Allergies Allergy Unknown Verified 11/23/24 12:45 Review of Systems 2 Review of Systems: All other systems are reviewed and are negative Constitutional: Reports as per HPI and Reports no additional constitutional complaints Eyes: Reports as per HPI and Reports no additional eye complaints Reports system reviewed and no additional complaints, except as documented Cardiovascular: Reports as per HPI and Reports no additional cardiovascular complaints Respiratory: Reports as per HPI and Reports no additional respiratory complaints Gastrointestinal: Reports as per HPI and Reports no additional gastrointestinal complaints Genitourinary: Reports no additional female genitourinary complaints Musculoskeletal: Reports no additional musculoskeletal complaints Skin/Breast: Reports system reviewed and no additional complaints, except as docu Psychiatric: Reports no additional psychiatric complaints Endocrine: Reports no additional endocrine complaints Hematologic/Lymphatic: Reports no additional hematologic/lymphatic complaints Allergic/Immunologic: Reports no additional allergic/immunologic complaints Reports system reviewed and no additional complaints, except as documented and Reports Abnormal speech present [facility] Past Medical History Medical History Chronic restrictive lung disease Nonischemic cardiomyopathy PAF (paroxysmal atrial fibrillation) Nocturnal hypoxemia Morbid obesity Asthma-COPD overlap syndrome Diastolic dysfunction Pneumonitis Schizophrenia, paranoid Afib Schizophrenia Atrial fib/flutter, transient Pneumonia due to COVID-19 virus Pacemaker Hypothyroid Schizophrenia HTN (hypertension) Asthma Surgical History History of cardiac pacemaker Hx of kidney removal Hx of removal of ovary Family History Family History Father Heart disease Mother Heart disease Social History Social History Household Members: None Housing: Apartment Do you presently have visiting nurse or other home services: No Alcohol intake: never Patient Tobacco Use Status: Former Tobacco user Years Smoked: 10 years +/- Advance Directives: Yes Advance Directives on File: Yes Advance Directives Date on File: 10/30/20 Do you have a plan to hurt others: No Plan service: No Current occupational status: disabled Physical Exam ED Vital Signs: Vital Signs - 24 hr 11/23/24 12:41 11/23/24 12:54 Temperature 97.3 F 97.8 F Pulse Rate 121 H 121 H Respiratory Rate 22 H 22 H Blood Pressure 138/90 H 154/107 H Pulse Oximetry 96 98 Oxygen Delivery Method Nasal Cannula Nasal Cannula Oxygen Flow Rate 2 BMI result Body Mass Index 52.1 Vital signs have been reviewed and appear to be correct. Blood pressure elevated. Heart rate normal. Respiratory rate normal. Temperature normal. Oxygen saturation normal. Appearance: Alert. Oriented X3. No acute distress. Head: Normal external exam. Normocephalic. Atraumatic. No Kinsey signs noted. No raccoon eyes noted Eyes: PERRLA. EOMI. Conjunctiva and sclera normal. Eyelids normal. ENT: TM's Normal. Pharynx normal. Uvula midline. Moist mucous membranes. No trismus noted. No drooling noted. No muffled voice noted. Neck: Normal inspection. Neck supple. FROM. No adenopathy. Thyroid Normal. No meningeal signs. No neck mass noted. CVS: Rapid, regular. Heart sound normal. No murmurs noted. Pulses normal throughout. Respiratory: No respiratory distress. Painless inspiration. Breath sounds normal. No wheezes/rales/rhonchi noted. Chest nontender. No accessory muscle usage noted or decreased air movement noted. Abdomen: Soft and nontender. Bowel sounds normal in all 4 quadrants. No distention noted. No organomegaly noted. No visible injury noted. Back: No CVA tenderness. Full range of motion noted. Skin: Skin warm and dry. Normal skin color. Normal skin turgor. No rashes/lesions/lacerations noted. Extremities: No lower extremity edema. Extremities exhibit normal range of motion. Extremities nontender. Neuro: Oriented X 3. Cranial nerve exam: II-XII are grossly intact No motor deficit. No sensory deficit. Reflexes normal. Course Course Course Narrative: This is a rapid medical exam performed by Mary Liu NP: Additional HPI, ROS, PE not included below will be deferred to primary provider. 11/23/24 12:45 Patient is a 69-year-old female presenting from pulmonology office for rapid HR. Patient reports she is supposed to be on baseline O2. Plan: EKG, labs, patient brought directly to main ED Reevaluation(s) Reevaluation #1: 69-year-old female history of AFib came in from the pilot boat operator of his with rapid AFib, heart rate is better with metoprolol p.o./IV. Patient is on Xarelto. Time: 14:14 Medications Administered Discontinued Medications Generic Name Dose Route Start Last Admin Trade Name Freq PRN Reason Stop Dose Admin Metoprolol Tartrate 5 mg 11/23/24 13:11 11/23/24 13:51 Metoprolol Tartrate 5 Mg/5 Ml Vial IVPUSH 11/23/24 13:12 5 mg ONCE ONE Administration Protocol Medical Decision Making Differential Diagnosis Differential Diagnoses: The differential diagnosis associated with the presentation includes (ACS, CHF, pneumonia, pneumothorax, pleural effusion, COPD exacerbation, rapid AFib.) Admission/Observation Consideration of admission/observation: Escalation of care including admission/observation considered Consult Healthcare Provider Management of the patient was discussed with: Hospitalist (Dr. Callaway) Lab Data MDM Lab Attestation statement: I reviewed the patient's lab results. 11/23/24 13:11 11/23/24 13:11 Labs: Lab Results 11/23/24 Range/Units 13:11 WBC 6.8 (4.8-10.8) X10*3/uL RBC 3.92 L (4.20-5.50) X10*6/uL Hgb 11.7 L (12.0-16.0) g/dl Hct 35.7 L (37.0-47.0) % MCV 91.1 (80.0-98.0) fL MCH 29.8 (27.0-33.0) pg MCHC 32.8 (31.0-35.0) g/dl RDW 14.4 (11.0-16.0) % Plt Count 248 (160-400) X10*3/uL MPV 9.2 L (9.4-12.3) fL Immature Gran % (Auto) 0.3 (0.0-0.4) % Neut % (Auto) 65.6 (45-73) % Lymph % (Auto) 22.7 (20-40) % Power % (Auto) 8.3 (2-11) % Eos % (Auto) 2.8 (0-4) % Baso % (Auto) 0.3 (0-2) % Lymph # (Auto) 1.5 (1.2-4.9) X10*3/uL Power # (Auto) 0.6 (0.1-1.2) X10*3/uL Eos # (Auto) 0.2 (0.0-0.4) X10*3/uL Baso # (Auto) 0.0 (0.0-0.2) X10*3/uL Abs Immat Gran (auto) 0.02 (0.00-0.03) X10*3/uL Absolute Neuts (auto) 4.5 (2.0-8.3) x10*3/uL Absolute Nucleated RBC 0.000 (0.0-0.012) X10*3/uL Nucleated RBC % (auto) 0.0 (0.0-0.2) /100WBC PT 14.8 H (10.9-12.4) SEC INR 1.3 H (0.9-1.1) Sodium 144 (135-145) mmol/L Potassium 3.9 (3.3-5.1) mmol/L Chloride 106 (96-108) mmol/L Carbon Dioxide 30 H (22-29) mmol/L Anion Gap 12 (12-20) BUN 21 H (9-16) mg/dL Creatinine 0.73 (0.5-1.4) mg/dL Estim Creat Clear Calc 97.3 Estimated GFR > 60 Random Glucose 85 (60-115) mg/dL Calcium 9.5 (8.4-10.2) mg/dL Magnesium 2.3 (1.6-2.6) mg/dL Total Bilirubin 0.3 (0.0-1.0) mg/dL AST 24 (5-31) U/L ALT 24 (0-31) U/L Alkaline Phosphatase 97 (39-117) U/L Troponin I High Sens < 2.7 (<3.5-17.0) ng/L B-Natriuretic Peptide 38 (<100) pg/mL Total Protein 7.2 (6.5-8.0) g/dL Albumin 3.8 (3.5-5.0) g/dL TSH 3.43 (0.32-4.0) uIU/mL Influenza Type A (PCR) NEGATIVE (Negative) Influenza Type B (PCR) NEGATIVE (Negative) RSV RNA Qual (PCR) NEGATIVE (Negative) SARS-CoV-2 RNA (RT-PCR) NEGATIVE (Negative) Independent Interpretation I performed an independent interpretation of an: Plain X-Ray (No acute cardiopulmonary abnormality.) Radiology Impression Discussion of test interpretation with radiology: I have reviewed the radiologist's reading. Discharge Plan Discharge Clinical Impression: Atrial fibrillation with RVR Patient Disposition: Admitted As Inpatient Print Language: Bangladeshi
[2024-11-23 13:16] LABS: MANUAL DIFF FLAG NO
[2024-11-23 13:22] LABS: Basophils Percent Auto 0.3 % (0-2); Eosinophils Absolute Auto 0.2 X10*3/uL (0.0-0.4); Eosinophils Percent Auto 2.8 % (0-4); Hematocrit 35.7 % (37.0-47.0); Hemoglobin 11.7 g/dl (12.0-16.0); Imm Gran Abs Auto 0.02 X10*3/uL (0.00-0.03); Imm Gran Pct Auto 0.3 % (0.0-0.4); Lymphocytes Absolute Auto 1.5 X10*3/uL (1.2-4.9); Lymphocytes Percent Auto 22.7 % (20-40); Mean Corpuscular HGB Conc 32.8 g/dl (31.0-35.0); Mean Corpuscular Hemoglobin 29.8 pg (27.0-33.0); Mean Corpuscular Volume 91.1 fL (80.0-98.0); Mean Platelet Volume 9.2 fL (9.4-12.3); Monocytes Absolute Auto 0.6 X10*3/uL (0.1-1.2); Monocytes Percent Auto 8.3 % (2-11); Neutrophils Absolute Auto 4.5 x10*3/uL (2.0-8.3); Neutrophils Percent Auto 65.6 % (45-73); Platelet Count 248 X10*3/uL (160-400); Red Blood Count 3.92 X10*6/uL (4.20-5.50); Red Cell Distribution Width 14.4 % (11.0-16.0); White Blood Count 6.8 X10*3/uL (4.8-10.8)
[2024-11-23 13:28] LABS: INTERNATIONAL NORM RATIO 1.3 (0.9-1.1); Prothrombin Time 14.8 SEC (10.9-12.4)
[2024-11-23 13:45] LABS: Alanine Aminotransferase 24 U/L (0-31); Albumin Level 3.8 g/dL (3.5-5.0); Alkaline Phosphatase 97 U/L (39-117); Anion Gap 12 (12-20); Aspartate Amino Transferase 24 U/L (5-31); B Type Natriuretic Peptide 38 pg/mL (<100); Bilirubin Total 0.3 mg/dL (0.0-1.0); Blood Urea Nitrogen 21 mg/dL (9-16); Calcium 9.5 mg/dL (8.4-10.2); Carbon Dioxide 30 mmol/L (22-29); Chloride 106 mmol/L (96-108); Creatinine Clr Calc Pharmacy 97.3; Estimated Glomerular Filt Rate > 60; Glucose Random 85 mg/dL (60-115); Magnesium 2.3 mg/dL (1.6-2.6); Potassium 3.9 mmol/L (3.3-5.1); Sodium 144 mmol/L (135-145); Total Protein 7.2 g/dL (6.5-8.0)
[2024-11-23] MEDS: Metoprolol Tartrate 5 MG/5 ML VIAL IVPUSH ×2 (13:51→14:34)
[2024-11-23 13:56] LABS: Troponin-I High Sensitivity < 2.7 ng/L (<3.5-17.0)
[2024-11-23 13:59] LABS: TSH reflex Free T4 3.43 uIU/mL (0.32-4.0)
[2024-11-23 14:06] LABS: Influenza A PCR NEGATIVE (Negative); Influenza B PCR NEGATIVE (Negative); Resp Syncy Virus RNA Qual PCR NEGATIVE (Negative); SARS COV2 PCR INHOUSE NEGATIVE (Negative)
[2024-11-23] MEDS: Metoprolol Tartrate 50 MG TABLET PO (14:34)
--- OUTSIDE RECORDS SUMMARY | 2024-11-23 14:36 | XMS_ITS | Encounter Summary ---
Author Organization [facility] Address [address] [place] [address] Care Team Providers Care Moisture Meter Operator Name Role Phone Masoud Khan MD Primary Care Provider [phone]- [phone] Reason for Visit * Reason Onset Date Comments triage 11/21/2024 Hospital Follow-up 11/21/2024 Encounter Details Date Type Department Care Team ([facility] st Contact Info) Description 11/21/2024 Telephone Adult Medicine [address] [phone] Masoud Khan MD [address] [place] [phone] triage; Hospital Follow-up Social History Tobacco Use [...] 1:00 PM EDT Office Visit Adult Medicine [address] [phone] Masoud Khan MD [address] [place] [address] 01/02/2025 11:15 AM EDT Office Visit Adult [address] [phone] Masoud Khan MD [address] [place] [address] 02/05/2025 9:10 AM EDT Office Visit [facility] [address] [facility] [address] [place] [address] Satnam Garcia, BEHAVIOR CLINICIAN [address] [place] [address] documented as of this encounter Visit Diagnoses Not on filedocumented in this encounter Care Teams Moisture Meter Operator Relationship Specialty Start Date End Date Masoud Khan MD [address] [place] [address] PCP - General Internal Medicine 10/25/24 documented as of this encounter
--- OUTSIDE RECORDS SUMMARY | 2024-11-23 14:36 | XMS_ITS | Clinical Summary ---
Author Organization [facility] [address] [facility] Address [address] [place] [address] [place] [address] Phone Care Team Providers Care Supervisor Sign Shop Name Role Phone Masoud Khan MD Primary [...] denies any abnormal bleeding. She has a [id number] score of 5, and should remain anticoagulated. Orders: Ambulatory referral to Cardiology ECG 12 lead Basic metabolic panel; Future CAD (coronary artery disease) 04/08/2020 Overview (06/30/2024): Follows with cardiology ([facility]) had a nuclear [...] device clinic today. She is switching from [place]. Will have her continue to do device [...] Encounters Date Type Department Care Team Description 11/23/2024 Telephone [facility] Cardiology [facility] [address] [facility] [address] [place] [address] Carrol Fortune MD OTHER (Possible aflutter on EKG ) 11/21/2024 Telephone [facility] Cardiology [facility] [address] [place] [address] Carrol Fortune MD Appointment 11/21/2024 Telephone Adult Medicine [address] [phone] Masoud Khan MD triage; Hospital Follow-up 11/15/2024 Telephone Adult Medicine [address] [phone] Masoud Khan MD Hospital Follow-up 11/14/2024 Telephone [facility] Cardiology [address] [place] [address] Nae Melton NP 11/08/2024 Telephone Adult Medicine [address] [phone] Masoud Khan MD Medication Problem 11/07/2024 9:30 AM EDT Ancillary Procedure [facility] Cardiology [facility] [address] [place] [address] 11/07/2024 Telephone Adult Medicine [address] [phone] Masoud Khan MD Medication Problem 11/07/2024 Telephone [facility] Cardiology [facility] [address] [place] [address] Marcela Lea PA 11/03/2024 Telephone Adult Medicine [address] [phone] Masoud Khan MD Fitting for DME 10/30/2024 9:10 AM EDT Office Visit [facility] Cardiology [facility] [address] [place] [address] Satnam Garcia NP Sick sinus syndrome (CMS/HCC) (Primary Dx); Coronary artery disease involving [place] coronary artery of [place] heart without angina pectoris; Chronic diastolic (congestive) heart failure (CMS/HCC); Paroxysmal atrial fibrillation (CMS/HCC); Hypercholesterolemia; Essential hypertension, benign 10/30/2024 Telephone [facility] Cardiology [facility] 154 300 [facility] [address] [place] [address] Satnam Garcia NP 10/10/2024 Telephone Adult [address] [phone] Masoud Khan MD provider call back 10/03/2024 9:05 AM EST Lab Draw [address] Prediabetes; Acquired hypothyroidism; Hypokalemia; Chronic diastolic (congestive) heart failure (CMS/HCC) 10/02/2024 9:30 AM EST Office Visit Adult [address] [phone] Masoud Khan MD Hospital discharge follow-up (Primary Dx); Chronic respiratory failure with hypoxia (CMS/HCC); Moderate persistent asthma with exacerbation; MARGOTH on CPAP; Hypokalemia; Chronic diastolic (congestive) heart failure (CMS/HCC); Paroxysmal atrial fibrillation (CMS/HCC); Essential hypertension, benign; Coronary artery disease involving [place] coronary artery of [place] heart without angina pectoris; Acquired hypothyroidism; Schizoaffective disorder, unspecified type (CMS/HCC); Prediabetes; Encounter for screening mammogram for malignant neoplasm of breast; Need for vaccination against Streptococcus pneumoniae 09/28/2024 Telephone Adult [address] [phone] Sierra Adan [place] triage 09/28/2024 Telephone [facility] Cardiology [facility] [address] 300 [facility] [address] [place] [address] Satnam Garcia NP 09/25/2024 Telephone Adult [address] [phone] Masoud Khan MD Flu Symptoms 09/22/2024 Telephone Adult Medicine [address] [place] [address], [place] [phone] Masoud Khan MD Cough 09/22/[address] [facility] [address] [place] [address] Masoud Khan MD 09/21/[address] [facility] [address] [place] [address] Masoud Khan MD Fever; Sore Throat 09/07/2024 Telephone [facility] 101 300 [facility] Tim [address] [place] [address] Satnam Garcia NP d/c amiodarone 09/04/2024 1:10 PM EST Office Visit [facility] Cardiology [facility] 154 300 [facility] [address] [place] [address] Satnam Garcia NP Hospital discharge follow-up; Chronic diastolic (congestive) heart failure (CMS/HCC); Paroxysmal atrial fibrillation (CMS/HCC); Essential hypertension, benign; MARGOTH on CPAP; Coronary artery disease involving [place] coronary artery of [place] heart without angina pectoris; Chronic respiratory failure with hypoxia (CMS/HCC); Moderate persistent asthma without complication; Acquired hypothyroidism; Schizoaffective disorder, unspecified type (CMS/HCC) 08/29/2024 Telephone [facility] Cardiology [facility] [address] [facility] [address] [place] [address] Satnam Garcia NP Med Refill (Furosemide, Amiodarone ) from Last 3 Months Immunizations Name Administration Dates Next Due Influenza trivalent, 0.5mL ( Fluad) 65yo and older 04/30/2022,05/13/2021 Influenza trivalent, 0.5mL ( Fluzone High-dose) 65yo and older 06/27/2024,04/30/2022,05/13/2021 Pneumococcal conjugate 20 va lent (Prevnar 20, PCV 20) 2mo and older 10/02/2024 Surgical History Surgery Date Site/Laterality Comments OTHER SURGICAL HISTORY PROCEDURE: OR SALPINGO-OOPHORECTOMY COMPL/PRTL UNI/BI SPX; COMMENT: age 20's removed ROV, cyst OTHER SURGICAL HISTORY PROCEDURE: OR EXCISION PILONIDAL CYST/SINUS COMPLICATED OTHER SURGICAL HISTORY 02/15/2017 Right PROCEDURE: OR LAPAROSCOPY SURG PARTIAL NEPHRECTOMY; COMMENT: Dr. Patterson Medical History Medical History Date Comments Osteoarthritis 05/29/2009 DX:Osteoarthriti s Hypothyroid 05/29/2009 DX:Hypothyroid Hypercholesterolemia 05/29/2009 DX:Hypercho lesterolemia Anxiety 05/29/2009 DX:Anxiety Depression 05/29/2009 DX:Depression Schizoaffective disorder ([facility]) DX:Schizoaffective disorder ([facility]); COMMENT: dr Renetta muller [facility] Angiomyolipoma of kidney DX:Any omyolipoma of kidney Morbid obesity with BMI of 4 5.0-49.9, adult ([facility]) 11/16/2013 DX:Morbid obesity with BMI o f 45.0-49.9, adult ([facility]); COMMENT: BMI 55.8 on 10/16/13. Diastolic dysfunction [...] 1:00 PM EDT Office Visit Adult Medicine [address] [phone] Masoud Khan MD [address] [place] [address] 01/02/2025 11:15 AM EDT Office Visit Adult [address] [phone] Masoud Khan MD [address] [place] [address] 02/05/2025 9:10 AM EDT Office Visit [facility] 154 300 [facility] [address] [place] [address] Satnam Garcia NP [address] [place] [address] Health Maintenance Due Date Last Done Comments [...] this topic Medical Devices Implanted Type Area Casting Associate Device Identifier Shelf Expiration Date Model / Serial / Lot Abbt-Renay 2272 Assurity Mri(Tm) [id number] Implanted: (Quantity not on file) Cardiac Pacemaker [employer]- [employer] 227 ASSURITY MRI(TM) / [id number] / Procedures Procedure Name Priority Date/Time Associated [...] 9:27 AM EDT) Date Time Interrogation Session [id number] CV DEVICE CHECK Type Interrogation Session Remote Scheduled CV DEVICE CHECK Implantable Pulse Generator Casting Associate [employer] CV DEVICE CHECK Implantable Pulse Generator Type IPG CV DEVICE CHECK Implantable Pulse Generator Model 2272 Assurity MRI(TM) CV DEVICE CHECK Implantable Pulse Generator Serial Number [id number] CV DEVICE CHECK Implantable Pulse Generator Implant Date [id number] CV DEVICE CHECK Battery Remaining Percentage 48.00 CV DEVICE CHECK Battery Remaining Longevity 43.0 CV DEVICE CHECK Battery Voltage 2.950 CV D EVICE CHECK Battery [employer] Trigger 2.600 CV DEVICE CHECK Battery Status Middle of Service CV DEVICE CHECK Santi Statistic RA Percent Paced 67.00 CV DEVICE CHECK Santi Statistic RV Percent Paced 18.00 CV DEVICE CHECK Atrial Tachy Statistic AT/AF [place] Percent 25.00 CV DEVICE CHECK Lead Channel [...] this? Marcela RIBEIRO CV IMPLANTABLE CARDIAC DEVICE OR OCEDURES Final Result * (ABNORMAL) Thyroid stimulating hormone with reflex to free t4 and free t3 (10/03/2024 9:14 AM EST) TSH 5.06(H) 0.40 - 4.00 mcIU/mL LAB CHEMISTRY METHOD 10/03/2024 1:01 PM EST [facility] Blood Venous blood specimen / Unknown Venipuncture / Unknown 10/03/2024 9:14 AM EST 10/03/2024 9:14 AM EST Masoud Khan MD LAB BLOOD ORDERABLES Final Result [facility] [address] [place] [address], [place] [phone] * Free thyroxine with reflex to free triiodothyronine (10/03/2024 9:14 AM EST) Free T4 1.44 0.70 - 1.80 ng/dL LAB CHEMISTRY METHOD 10/03/2024 1:26 PM EST [facility] Blood Venous blood specimen / Unknown Venipuncture / Unknown 10/03/2024 9:14 AM EST 10/03/2024 9:14 AM EST us Masoud Khan MD LAB BLOOD ORDERABLES Final Result Performing Organization Address [facility]/ZIP Co de Phone Number [facility] [address] [place] [address], [place] [phone] * Triiodothyronine free (10/03/2024 9:14 AM EST) T3, Free 254 230 - 420 pcg/dL LAB CHEMISTRY METHOD 10/03/2024 1:52 PM EST [facility] Blood Venous blood specimen / Unknown Venipuncture / Unknown 10/03/2024 9:14 AM EST 10/03/2024 9:14 AM EST us Masoud Khan MD LAB BLOOD ORDERABLES Final Result Performing Organization Address [facility]/ZIP Co de Phone Number [facility] [address] [place] [address], [place] [phone] * Magnesium (10/03/2024 9:14 AM EST) Magnesium 2.1 1.9 - 2.6 mg/dL LAB CHEMISTRY METHOD 10/03/2024 12:55 PM EST [facility] Blood Venous blood specimen / Unknown Venipuncture / Unknown 10/03/2024 9:14 AM EST 10/03/2024 9:14 AM EST us Masoud Khan MD LAB BLOOD ORDERABLES Final Result Performing Organization Address City/[facility]/ZIP Co de Phone Number [facility] [address] [place] [address], [place] [phone] * Hemoglobin A1c (10/03/2024 9:14 AM EST) Hemoglobin A1C 5.9 <6.5 % LAB CHEMISTRY METHOD 10/03/2024 1:14 PM [facility] Mean Bld Glu Estim. 123 mg/dL LAB CHEMISTRY METHOD 10/03/2024 1:14 PM [facility] Blood Venous blood specimen / Unknown Venipuncture / Unknown 10/03/2024 9:14 AM EST 10/03/2024 9:14 AM EST us Masoud Khan MD LAB BLOOD ORDERABLES Final Result [facility] [address] [place] [address], * (ABNORMAL) Basic metabolic panel (10/03/2024 9:14 AM EST) [facility] Sodium 140 133 - 145 mmol/L LAB CHEMISTRY METHOD 10/03/2024 12:57 PM [facility] Potassium 4.2 3.5 - 5.5 mmol/L LAB CHEMISTRY METHOD 10/03/2024 12:57 PM [facility] Chloride 102 96 - 110 mmol/L LAB CHEMISTRY METHOD 10/03/2024 12:57 PM [facility] CO2 34(H) 21 - 32 mmol/L LAB CHEMISTRY METHOD 10/03/2024 12:57 PM [facility] Anion Gap 4 3 - 11 LAB CHEMISTRY METHOD 10/03/2024 12:57 PM [facility] Glucose 97 70 - 100 mg/dL LAB CHEMISTRY METHOD 10/03/2024 12:57 PM [facility] BUN 22 5 - 25 mg/dL LAB CHEMISTRY METHOD 10/03/2024 12:57 PM [facility] Creatinine 0.80 0.50 - 1.10 mg/dL LAB CHEMISTRY METHOD 10/03/2024 12:57 PM EST [facility] eGFR 80 >=60 mL/min/1. 73m2 LAB CHEMISTRY METHOD 10/03/2024 12:57 PM EST [facility] Comment:Calculation based on the??Chronic Kidney Disease Epidemiology Collaboration (CKD-EPI) equation refit??without adjustment for race. BUN/Creatinine Ratio 27.5 LAB CHEMISTRY METHOD 10/03/2024 12:57 PM EST [facility] Calcium 9.3 8.5 - 10.5 mg/dL LAB CHEMISTRY METHOD 10/03/2024 12:57 PM EST [facility] Blood Venous blood specimen / Unknown Venipuncture / Unknown 10/03/2024 9:14 AM EST 10/03/2024 9:14 AM EST us Masoud Khan MD LAB BLOOD ORDERABLES Final Result Performing Organization Address [facility]/ZIP Co de Phone Number [facility] [address] [place] [address], * ECG 12 lead (09/04/2024 4:49 PM EST) Ventricular Rate ECG 64 BPM GEMUSE Atrial Rate 43 BPM GEMUSE QRS Duration 200 ms GEMUSE Q-T Interval 530 ms GEMUSE QTc 546 ms GEMUSE R [place] -31 degrees GEMUSE T [place] 109 degrees GEMUSE ECG Interpretation Ventricular-pa jose miguel rhythm with frequent Premature ventricular complexes Abnormal ECG When compared with ECG of 16-JUN-2019 14:10, Electronic ventricular pacemaker has replaced Sinus rhythm Confirmed by Khris ENNIS JOHN ([id number]) on 09/04/2024 10:30:26 PM GEMUSE 09/04/2024 1:10 PM EST 09/04/2024 10:30 PM EST us Satnam Garcia NP ECG ORDERABLES Edited Result [...] us Historical Provider LAB BLOOD ORDERABLES Marilee l Result * DXA BONE DENSITY STUDY 1+ SITS AXIAL SKEL (10/07/2021 11:30 AM EST) Anatomical Region Laterality Modality Bone Densitometr y 09/02/2021 1:37 PM EST Narrative 10/07/2021 5:21 PM EST Clinical history: menopausal/postmenopausal disorder Scans of the lumbar spine and hips were performed on a [employer] fan beam bone densitometer. ? Bone [...] spine and hips were performed on a [employer] Bank[employer] beam bone densitometer. Bone mineral density measurements [...] DXA PROCEDURES Final Result * Colonoscopy (05/30/2019) Pathologist [facility] Colonoscopy No Interpretation , Abstracted Anatomical Region Laterality Modality Other Historical Provider HEALTH MAINTENANCE Final Result * Hepatitis C Screening (06/27/2013) [facility] Hepatitis C Screening Abstracted Historical Provider HEALTH MAINTENANCE Final Result from Last 3 Months or Most Recently Relevant to Health Maintenance Insurance MEDICARE MEDICAID - [place] Care Teams Supervisor Sign Shop Relationship Specialty Start Date End Date Masoud Khan MD [address] [place] [address] PCP - General Internal Medicine 10/25/24
--- OUTSIDE RECORDS SUMMARY | 2024-11-23 14:36 | XMS_ITS | Encounter Summary ---
Author Organization [facility] Address [address] [place] [address] Care Team Providers Care Linen Clerk Name Role Phone Masoud Khan MD Primary Care Provider [phone] Reason for Visit * Reason Onset Date Comments Hospital Follow-up 11/15/2024 Encounter Details Date Type Department Care Team ([facility] Contact Info) Description 11/15/[address] [facility] [address] [place] [phone] Masoud Khan MD [address] [place] [address] Hospital Follow-up Social History Tobacco Use Types [...] EDT Spoke with daughter Pt. Discharged from [facility] and ? Cardioverted. She is at home [...] appointment needed Hospital patient was treated at: [facility], [facility] Was this only an ER [...] was the injury due to: Not 3rd democrat related documented in this encounter Plan of Treatment Upcoming Encounters Date Type Department Care Team (Late st Contact Info) Description 11/28/2024 1:00 PM EDT Office Visit [address] [phone] Masoud Khan MD [address] [place] [address] 01/02/2025 11:15 AM EDT Office Visit [address] [phone] Masoud Khan MD [address] [place] [address] 02/05/2025 9:10 AM EDT Office Visit [facility] [address] [phone] Satnam Garcia ROLLER MILL TENDER [address] [place] [address] documented as of this encounter Visit Diagnoses Not on filedocumented in this encounter Care Teams Linen Clerk Relationship Specialty Start Date End Date Masoud Khan MD [address] [place] [address] PCP - General Internal Medicine 10/25/24 documented as of this encounter
--- OUTSIDE RECORDS SUMMARY | 2024-11-23 14:36 | XMS_ITS | Encounter Summary ---
Author Organization [facility] [place] [address] Care Team Providers Care Security Alarm Installer Name Role Phone Masoud Khan MD Primary Care Provider [phone] Reason for Visit * Reason Onset Date Comments Appointment 11/21/2024 Encounter Details Date Type Department Care Team (Late st Contact Info) Description 11/21/2024 Telephone [facility] 154 300 [facility] 154 [place] [address] Carrol Fortune MD 300 [place] [address] Appointment Social History Tobacco Use Types Packs/Day [...] Hospital Follow Up Diagnosis:Shortness of breath Hospital: [facility] Consulted by: Dr Devi/Nae Melton Discharged on:11/17/24 Care team:Dr Fortune and Satnam Garcia Patient rather us call her daughter to schedule this appointment. Th daughters name is Glo and her phone number is [phone]. documented in this encounter Plan of Treatment Upcoming Encounters Date Type Department Care Team (Late st Contact Info) Description 11/28/2024 1:00 PM EDT Office Visit Adult Medicine [address] [phone] Masoud Khan MD [address] [place] [address] 01/02/2025 11:15 AM EDT Office Visit Adult [address] [phone] Masoud Khan MD [address] [place] [address] 02/05/2025 9:10 AM EDT Office Visit [facility] [address] [phone] Satnam Gacria, KARLY [address] [place] [address] documented as of this encounter Visit Diagnoses Not on filedocumented in this encounter Care Teams Security Alarm Installer Relationship Specialty Start Date End Date Masoud Khan MD [address] [place] [address] PCP - General Internal Medicine 10/25/24 documented as of this encounter
--- OUTSIDE RECORDS SUMMARY | 2024-11-23 14:36 | XMS_ITS | Encounter Summary ---
Author Organization [facility] Address [address] [place] [address] Care Team Providers Care Behavioral Health Technician Name Role Phone Masoud Khan MD Primary Care Provider [phone] Reason for Visit * Reason Onset Date Comments Medication Problem 11/08/2024 Encounter Details Date Type Department Care Team ([facility] st Contact Info) Description 11/08/2024 Telephone Adult Medicine [facility] [address] [place] [phone] Masoud Khan MD [address] [place], [place] [phone] Medication Problem Social History Tobacco Use Types [...] herto tell her doctor to call Marybel [phone]. She is not sure if this is [...] 1:00 PM EDT Office Visit Adult Medicine [address] [phone] Masoud Khan MD [address] [place] [address] 01/02/2025 11:15 AM EDT Office Visit [address] [phone] Masoud Khan MD [address] [place] [address] 02/05/2025 9:10 AM EDT Office Visit [facility] 154 300 [facility] 154 [place] [address] Satnam Garcia NP 300 [place] [address] documented as of this encounter Visit Diagnoses Not on filedocumented in this encounter Care Teams Behavioral Health Technician Relationship Specialty Start Date End Date Masoud Khan MD [address] [place] [address] PCP - General Internal Medicine 10/25/24 documented as of this encounter
--- OUTSIDE RECORDS SUMMARY | 2024-11-23 14:36 | XMS_ITS | Encounter Summary ---
Author Organization [facility] Address [address] [place] [address] Care Team Providers Care Occupational Health Technician Name Role Phone Masoud Khan MD Primary Care Provider [phone] Reason for Visit * Reason Onset Date Comments OTHER 11/23/2024 Possible aflutte r on EKG Encounter Details Date Type Department Care Team (Late st Contact Info) Description 11/23/2024 Telephone [facility] 154 300 [facility] 154 [place] [phone] Carrol Fortune MD 300 [place], [place] [phone] OTHER (Possible aflutter on EKG ) Social History Tobacco Use Types Packs/Day [...] as of this encounter Progress Notes * Wendy Valenzuela - 11/23/2024 1:52 PM EDT The patients daughter Glo called. The patient has been unable to stay out of the hospital due toher heart rate. She gets discharged and then returns back the next day. They were advised by her ski edge painter to move up her ablation to as soon as possible. Please call her back at [phone]. * Belgica Cadena RN - 11/23/2024 12:09 PM EDT LVM for pt this PM with further recs below from Haydee Garcia. Made aware to call back once Dcd from the hospital to schedule HFU. * Julia Garcia NP - 11/23/2024 12:05 PM EDT Please reach out to the patient. I did speak with Dr. Guaman who is going to recommend to the emergency room due to her having shortness of breath and lower extremity swelling, and reported HR in 120s. I would like to schedule for her to come in sometime next week for a triage visit. * Deborah Kat MA - 11/23/2024 11:54 AM EDT EKG has been scanned and attached to encounter. Please advise. * Najma Alcazar RN - 11/23/2024 11:48 AM EDT Please provide EKG once received to SAHIL/JULIA team to review EKG Ivon RODRIGEZ is working with SAHIL [email or web address] and with JULIA this afternoon. Both SAHIL/Julia in office . Thank you! * Deborah Kat MA - 11/23/2024 11:42 AM EDT Ivon from [facility], patient is currently being seen by Dr Guaman, pulmonology. They did an EKG on the patient and the provider is concerned that there is possible aflutter. The EKG is getting faxed over. They are requesting a call back as soon as possible to discuss the EKG. Please call [phone] documented in this encounter Plan of Treatment Upcoming Encounters Date Type Department Care Team (Late st Contact Info) Description 11/28/2024 1:00 PM EDT Office Visit Adult Medicine [address] [phone] Masoud Khan MD [address] [place] [address] 01/02/2025 11:15 AM EDT Office Visit [address] [phone] Masoud Khan MD [address] [place] [address] 02/05/2025 9:10 AM EDT Office Visit [facility] 154 300 [facility] 154 [place] [phone] Julia Garcia NP 300 [place] [address] documented as of this encounter Visit Diagnoses Not on filedocumented in this encounter Care Teams Occupational Health Technician Relationship Specialty Start Date End Date Masoud Khan MD [address] [place] [address] PCP - General Internal Medicine 10/25/24 documented as of this encounter
--- OUTSIDE RECORDS SUMMARY | 2024-11-23 14:36 | XMS_ITS | Encounter Summary ---
Author Organization [employer] Address [address] [place] [address] Care Team Providers Care Community Liaison Officer Name Role Phone Masoud Khan MD Primary Care Provider [phone] Encounter Details Date Type Department Care Team (Late st Contact Info) Description 11/14/[address] [facility] Cardiology [facility] [address] [facility] [address] [place] [phone] Nae Melton, SUPERVISOR [employer] [address] [facility] [address] [place] [address] Social History Tobacco Use Types Packs/Day Years [...] daughter today, Michaela was brought [place] [facility] [place], she is unsure if she got admitted from there, We will call back when she is discharged to schedule her hospital follow up Hospital Follow Up Diagnosis: [facility] Hospital[place] [facility] Consulted by: Tawanda 11/12/24 Discharged on: 11/14/24 Care team: ROMULO DUMONT 10/30/24 sick [facility] Hospital Follow Up Diagnosis: ? Hospital[place] [facility] Consulted by: ? Discharged on: 11/15/24 - [...] 1:00 PM EDT Office Visit Adult Medicine [address] [phone] Masoud Khan MD [address] [place] [id number] 01/02/2025 11:15 AM EDT Office Visit Adult Medicine [address] [phone] Masoud Khan MD [address] [place] [phone] 02/05/2025 9:10 AM EDT Office Visit [facility] [address] [phone] Satnam Garcia NP [address] [place] [address] documented as of this encounter Visit Diagnoses Not on filedocumented in this encounter Care Teams Community Liaison Officer Relationship Specialty Start Date End Date Masoud Khan MD [address] [place] [id number] PCP - General Internal Medicine 10/25/24 documented as of this encounter
--- NOTE | 2024-11-23 15:14 | PM.IMHP ---
History of Present Illness Date of Service: 11/23/24 Chief Complaint: Atrial flutter w RvR A 69 years old lady with PMH of AFlutter on Xarelto, asthma, diastolic dysfunction, COPD use supplemental oxygen 2 L, obstructive sleep apnea on CPAP at night, nonischemic cardiomyopathy came in from the relief pharmacist office for rapid atrial fibrillation/flutter. The patient has recurrent admissions for the same problem. reports feeling weak and SOB while having no energy for the last week or so. was in regular visit at [facility] where they found her HR to be in 130s. No chest pain, palpitations, nausea, vomiting, diarrhea or urinary symptoms. She is scheduled for Ablation procedure by EP next month. To be admitted for further management and monitoring. Review of Systems Review of Systems: No fever, chills or weakness No chest pain, palpitation reports shortness of breath or coughing No abdominal pain, nausea or vomiting No urinary symptoms No any rash or wounds PMFSH Medical History Chronic restrictive lung disease Nonischemic cardiomyopathy PAF (paroxysmal atrial fibrillation) Nocturnal hypoxemia Morbid obesity Asthma-COPD overlap syndrome Diastolic dysfunction Pneumonitis Schizophrenia, paranoid Afib Schizophrenia Atrial fib/flutter, transient Pneumonia due to COVID-19 virus Pacemaker Hypothyroid Schizophrenia HTN (hypertension) Asthma Family History Father Heart disease Mother Heart disease Surgical History History of cardiac pacemaker Hx of kidney removal Hx of removal of ovary Social History Household Members: None Housing: Apartment Do you presently have visiting nurse or other home services: No Alcohol intake: never Patient Tobacco Use Status: Former Tobacco user Years Smoked: 10 years +/- Smoked in Last 30 Days: No Any prior treatment program specific to substance use: No Advance Directives: Yes Advance Directives on File: Yes Advance Directives Date on File: 10/30/20 Do you have a plan to hurt others: No Plan Nutrition Risks: No Nutritional Risk service: No Current occupational status: disabled Meds Allergies Allergy/AdvReac Type Severity Reaction Status Date / Time Seasonal Allergies Allergy Unknown Verified 11/23/24 12:45 Active Medications: Current Medications Acetaminophen (Acetaminophen 325 Mg Tablet) 650 mg PO Q6H PRN PRN Reason: Pain, Mild 1-3,fever,headache Benzonatate (Benzonatate 100 Mg Capsule) 100 mg PO TID PRN PRN Reason: Cough Calcium Carbonate (Calcium Carbonate 750 Mg Tab.Chew) 750 mg PO Q4H PRN PRN Reason: Heartburn Diltiazem HCl (Diltiazem Hcl 50 Mg/10 Ml Vial) 15 mg IVPUSH STAT STA Stop: 11/23/24 15:09 Diltiazem HCl (Diltiazem Hcl 60 Mg Tablet) 60 mg PO QID ANTONETTE; Protocol Magnesium Hydroxide (Milk Of Magnesia 30 Ml Oral.Susp) 30 ml PO DAILY PRN PRN Reason: Constipation Melatonin (Melatonin 3 Mg Tablet) 6 mg PO BEDTIME PRN PRN Reason: Insomnia Metoprolol Succinate (Metoprolol Succinate Er 50 Mg Tab.Er.24h) 50 mg PO BID ANTONETTE; Protocol Ondansetron HCl (Ondansetron Hcl 4 Mg/2 Ml Vial) 4 mg IVPUSH Q8H PRN PRN Reason: Nausea and Vomiting Rivaroxaban (Rivaroxaban 20 Mg Tablet) 20 mg PO BEDTIME ANTONETTE Sodium Chloride (0.9 % Sodium Chloride Flush 3 Ml Syringe) 3 ml IVFLUSH QSHIFT [facility] Home Medications ?Medication ?Instructions ?Recorded ?Confirmed ?Last Taken ?Type levothyroxine 112 mcg tablet 112 mcg PO MOTUWETHFRSA@0600 07/30/20 11/09/24 11/08/24 History magnesium oxide 400 mg (241.3 mg 400 mg PO DAILY 07/30/20 11/09/24 11/08/24 History magnesium) tablet melatonin 5 mg tablet 10 mg PO BEDTIME PRN insomnia 07/30/20 11/09/24 01/10/22 History ezauwfxsvxbw-frxtalwd-utytmy tablet 1 tab PO DAILY 01/11/22 11/09/24 11/08/24 History sertraline 25 mg tablet 25 mg PO DAILY 05/11/23 11/09/24 11/08/24 History atorvastatin 40 mg tablet 40 mg PO BEDTIME 09/21/23 11/09/24 11/08/24 History Oxygen Home Use 05/08/24 07/17/24 Unknown History sertraline 100 mg tablet 100 mg PO DAILY 05/08/24 11/09/24 11/08/24 History empagliflozin 10 mg tablet 10 mg PO DAILY 07/17/24 11/09/24 11/08/24 History (Jardiance) aripiprazole 20 mg tablet 20 mg PO DAILY 09/22/24 11/09/24 11/08/24 History diltiazem HCl 240 mg 240 mg PO DAILY 09/22/24 11/09/24 11/08/24 History capsule,extended release 24 hr levothyroxine 112 mcg tablet 168 mcg PO ALLRED@0600 09/22/24 11/09/24 11/05/24 History paliperidone palmitate 234 mg/1.5 234 mg IM Q4W 09/22/24 11/09/24 10/19/24 History mL intramuscular syringe (Invega Sustenna) rivaroxaban 20 mg tablet (Xarelto) 20 mg PO BEDTIME 09/22/24 11/09/24 11/08/24 History acetaminophen 500 mg tablet 500 mg PO Q6H PRN Pain 11/09/24 11/09/24 Unknown History albuterol sulfate 90 mcg/actuation 2 puff inhalation Q4H PRN 11/09/24 11/09/24 Unknown History aerosol inhaler shortness of breath or wheezing benztropine 1 mg tablet 1 mg PO BEDTIME 11/09/24 11/09/24 11/08/24 History amiodarone 200 mg tablet 200 mg PO DAILY 11/23/24 Unknown History fluticasone propionate 230 2 puff inhalation BID 11/23/24 Unknown History mcg-salmeterol 21 mcg/actuation HFA inhaler (Advair HFA) metoprolol succinate 100 mg 100 mg PO DAILY 11/23/24 Unknown History tablet,extended release 24 hr Physical Exam Vital Signs and Narrative: Vital Signs: Last Vital Signs Temp 97.8 F 11/23/24 14:26 Pulse 112 H 11/23/24 14:34 Resp 17 11/23/24 14:26 BP 133/109 H 11/23/24 14:34 Pulse Ox 99 11/23/24 14:26 O2 Del Method Room Air 11/23/24 14:26 O2 Flow Rate 2 11/23/24 12:54 Oxygen Flow Rate 2 11/23/24 12:41 BMI result Body Mass Index 52.1 Const: Other: Constitutional : Awake, interactive, not in distress Neck : Normal inspection, Supple Cardiovascular : irregular irregular, no JVP, no lower extremity edema Respiratory : good bilateral air entry, no crackles, wheezes or rhonchi Gastrointestinal: soft, lax, Normal bowel sounds, Non tender Skin : Warm, Dry Neurological : Alert & oriented x3, No focal deficit , CN 2-12 within normal Results Labs 11/23/24 13:11 11/23/24 13:11 Labs: Laboratory Results - last 24 hr 11/23/24 13:11 MCV 91.1 MCH 29.8 MCHC 32.8 RDW 14.4 Plt Count 248 MPV 9.2 L Immature Gran % (Auto) 0.3 Neut % (Auto) 65.6 Lymph % (Auto) 22.7 Hernando % (Auto) 8.3 Eos % (Auto) 2.8 Baso % (Auto) 0.3 Lymph # (Auto) 1.5 Hernando # (Auto) 0.6 Eos # (Auto) 0.2 Baso # (Auto) 0.0 Abs Immat Gran (auto) 0.02 Absolute Neuts (auto) 4.5 Absolute Nucleated RBC 0.000 Nucleated RBC % (auto) 0.0 PT 14.8 H INR 1.3 H Anion Gap 12 Estim Creat Clear Calc 97.3 Estimated GFR > 60 Random Glucose 85 Calcium 9.5 Magnesium 2.3 Total Bilirubin 0.3 AST 24 ALT 24 Alkaline Phosphatase 97 B-Natriuretic Peptide 38 Total Protein 7.2 Albumin 3.8 TSH 3.43 Influenza Type A (PCR) NEGATIVE Influenza Type B (PCR) NEGATIVE RSV RNA Qual (PCR) NEGATIVE SARS-CoV-2 RNA (RT-PCR) NEGATIVE Imaging Radiologist's Impressions: Impressions Chest X-Ray 11/23/24 13:40 IMPRESSION: No acute cardiopulmonary abnormality. Electronically signed by: Kem Epperson MD 11/23/2024 01:56 PM EDT Assessment and Plan (1) Atrial fibrillation/flutter: Status: Acute (2) Atrial fibrillation with RVR: Status: Acute Plan A 69 years old lady with PMH of AFlutter on Xarelto, asthma, diastolic dysfunction, COPD use supplemental oxygen 2 L, obstructive sleep apnea on CPAP at night, nonischemic cardiomyopathy came in from the relief pharmacist office for rapid atrial fibrillation/flutter. paroxysmal Aflutter with RVR: EKG showing 2:1 rate in 130s IV Cardizem, PO 60 mg Q6 IV MEtoprolol in ED, 50 mg CD bid Cardiology consult Keep on Tele resume amiodarone and Xarelto. Plan for EP Ablation as outpatient chronic hypoxic respiratory failure with Acute asthma/COPD overlap syndrome. Continue home pulmonary meds CPAP bedtime chronic HFpEF exacerbation Continue home diuretics HLD Continue statin Hypothyroidism Continue levothyroxine Mood disorder Continue aripiprazole and sertraline Obesity class 3 Encourage weight loss Full Code DVT pptx - xarelto Patient will benefit from 2 midnight stays for AFlutter w RVR need tele monitoring and rate control medication IV and PO pending cardiology evaluation Quality Stroke Does the patient have a stroke diagnosis?: No VTE Prior VTE?: No VTE Risk Level:: Medical - moderate - high VTE Device Contraindication: Treatment Not Indicated VTE Drug Contraindication: N/A - Med Ordered
[2024-11-23] MEDS: dilTIAZem HCL 50 MG/10 ML VIAL 15 MG IVPUSH (15:23)
--- NOTE | 2024-11-23 16:53 | MHC.EDTECH ---
Patient used the commode, she stood up very well.
[2024-11-23] MEDS: dilTIAZem HCL 60 MG TABLET PO ×2 (17:00→20:22)
[2024-11-23] MEDS: 0.9 % Sodium Chloride Flush 3 ML SYRINGE IVFLUSH (17:01)
--- NOTE | 2024-11-23 17:21 | PHA.MEDREC ---
Addendum entered by Kuldeep Espino RPh 11/23/24 17:47: Reviewed by [facility]. Pt takes benztropine only HS, and not BID. Pt no longer is taking Breo and has switched to Advair. Original Note: Pharmacy Consult ? Medication Reconciliation Pharmacy has completed the medication reconciliation. Spoke with patient and she was able to confirm her medications. She confirmed not much has changed since she was last here on 11/11/24. She states she was transferred to [facility] from here and while being inpatient there she states they stopped the Diltiazem 240mg tab all together and switched her Metoprolol from Tartrate 100mg BID to Succinate 100mg once a day. She also confirmed she received a dose her Invega last week while at [facility]; I called to get confirmation from [facility] and is waiting to hear back from them. She also confirmed she is taking the Amiodarone 200mg tab once a day and stated she got 2 bottles at home and with directions saying 'take 2 tablets by mouth twice a day and 1 tablet once a day' and states she started taking the bottle with the 1 tablet daily directions and was going to call her pharmacy to figure out what she was suppose to be taking today, but ended up coming here instead. She confirmed she took her morning medications this morning.
--- NOTE | 2024-11-23 19:22 | PC.NURSE ---
this rn assumed care of pt, pt resting in stretcher eating dinners, no acute distress noted.
[2024-11-23] MEDS: Rivaroxaban 20 MG TABLET PO (20:22)
[2024-11-23] MEDS: Metoprolol Succinate ER 50 MG TAB.ER.24H PO (20:23)
--- NOTE | 2024-11-23 20:26 | PC.NURSE ---
pt medicated per mar, tolerated well with water.
[2024-11-23] MEDS: Benztropine Mesylate 1 MG TABLET PO (21:12)
[2024-11-24 04:41] VITALS: BP 99/76; PULSE 100; O2SAT 93
[2024-11-24 06:15] VITALS: BP 91/53; PULSE 98; RESP 19; TEMP 36.7; O2SAT 92
[2024-11-24 07:51] LABS: Alanine Aminotransferase 21 U/L (0-31); Albumin Level 3.3 g/dL (3.5-5.0); Anion Gap 10 (12-20); Aspartate Amino Transferase 22 U/L (5-31); Bilirubin Total 0.4 mg/dL (0.0-1.0); Blood Urea Nitrogen 19 mg/dL (9-16); Calcium 8.7 mg/dL (8.4-10.2); Carbon Dioxide 26 mmol/L (22-29); Chloride 110 mmol/L (96-108); Creatinine Clr Calc Pharmacy 97.3; Estimated Glomerular Filt Rate > 60; Glucose Random 86 mg/dL (60-115); Potassium 4.2 mmol/L (3.3-5.1); Sodium 142 mmol/L (135-145); Total Protein 6.2 g/dL (6.5-8.0)
[2024-11-24 08:09] LABS: Alkaline Phosphatase 85 U/L (39-117)
[2024-11-24 08:33] VITALS: BP 153/89; PULSE 117; RESP 16; O2SAT 92
[2024-11-24] MEDS: Sertraline HCL 100 MG TABLET PO (08:35)
[2024-11-24] MEDS: dilTIAZem HCL 60 MG TABLET PO (08:35)
[2024-11-24] MEDS: Metoprolol Succinate ER 50 MG TAB.ER.24H PO ×2 (08:35→09:57)
[2024-11-24] MEDS: Levothyroxine Sodium 112 MCG TABLET PO (08:35)
[2024-11-24] MEDS: Empagliflozin 10 MG TABLET PO (08:35)
[2024-11-24] MEDS: Amiodarone HCL 200 MG TABLET PO (08:36)
[2024-11-24] MEDS: Sertraline HCL 25 MG TABLET PO (08:36)
[2024-11-24] MEDS: 0.9 % Sodium Chloride Flush 3 ML SYRINGE IVFLUSH (08:37)
[2024-11-24] MEDS: ARIPiprazole 20 MG TABLET PO (09:03)
--- NOTE | 2024-11-24 09:22 | MHC.CM.PN ---
Patient lives alone in an apartment and she is active with [facility]. Home/resume said services is the goal and CM has initiated and will follow for dc planning. PCP is Dr. Khan, Daughter/Aviva is HCP, and Daughter or Son will transport to home at time of dc.
--- NOTE | 2024-11-24 10:20 | PM.CNCAR ---
History of Present Illness History of Present Illness Date of Service: 11/24/24 Chief complaint: aflutter rvr Narrative: This is a cardiology consultation regarding atrial flutter/fibrillation. 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 She used to be with a different cardiology group and then switched over to us for the last few years, then saw [facility] and then now seeing [facility]. Hence her care is scattered everywhere. She also has had hospitalizations to different hospitals including [facility] at different times. It seems she was most recently at [facility] as well within the last few days. Per the recent EP note from [facility], recurrent admission for atrial flutter. It seems that she has been diagnosed with atypical atrial flutter. She was put on amiodarone. Then it seems that she was set up for an ablation that is coming up in the next few weeks. It has been mentioned that she will certainly have tachycardia until ablation but still no inpatient procedures were planned. Currently, she is again admitted for atrial flutter/fibrillation. Supposedly felt weak and short of breath and had no energy. Then went to pulmonary office and then where she was found to have rapid rate and again sent here. Currently, she states she feels well and does not have any active complaints. She feels okay from cardiac. Review of Systems Review of Systems: Yes all other systems are reviewed and are negative Constitutional: Constitutional: Reports as per HPI and Reports no additional constitutional complaints Eyes: Eyes: Reports as per HPI and Denies no additional eye complaints ENT: Denies system reviewed and no additional complaints, except as documented and Reports as per HPI Cardiovascular: Cardiovascular: Reports as per HPI, Reports no additional cardiovascular complaints, Denies acrocyanosis, Denies cool extremities, Denies chest pain, Denies leg edema, Denies lightheadedness, Denies palpitations and Denies dyspnea Respiratory: Respiratory: Reports as per HPI, Denies no additional respiratory complaints and Denies dyspnea Gastrointestinal: Gastrointestinal: Reports as per HPI and Denies no additional gastrointestinal complaints Genitourinary: Genitourinary: Reports as per HPI Musculoskeletal: Musculoskeletal: Reports no additional musculoskeletal complaints and Reports as per HPI Integumentary/Breasts: Skin/Breast: Reports system reviewed and no additional complaints, except as docu Neurologic: Reports system reviewed and no additional complaints, except as documented and Reports as per HPI Psychiatric: Psychiatric: Reports no additional psychiatric complaints and Reports as per HPI Endocrine: Endocrine: Reports no additional endocrine complaints, Reports as per HPI and Denies palpitations Hematologic/Lymphatic: Hematologic/Lymphatic: Reports no additional hematologic/lymphatic complaints and Reports as per HPI Allergic/Immunologic: Allergic/Immunologic: Reports no additional allergic/immunologic complaints and Reports as per HPI [facility] Past Medical History Medical History Chronic restrictive lung disease Nonischemic cardiomyopathy PAF (paroxysmal atrial fibrillation) Nocturnal hypoxemia Morbid obesity Asthma-COPD overlap syndrome Diastolic dysfunction Pneumonitis Schizophrenia, paranoid Afib Schizophrenia Atrial fib/flutter, transient Pneumonia due to COVID-19 virus Pacemaker Hypothyroid Schizophrenia HTN (hypertension) Asthma Family History Family History Father Heart disease Mother Heart disease Surgical History Surgical History History of cardiac pacemaker Hx of kidney removal Hx of removal of ovary Social History Social History Household Members: None Housing: Apartment Do you presently have visiting nurse or other home services: No Alcohol intake: never Patient Tobacco Use Status: Former Tobacco user Years Smoked: 10 years +/- Smoked in Last 30 Days: No Any prior treatment program specific to substance use: No Advance Directives: Yes Advance Directives on File: Yes Advance Directives Date on File: 10/30/20 Do you have a plan to hurt others: No Plan Nutrition Risks: No Nutritional Risk service: No Current occupational status: disabled Meds Allergies Allergy/AdvReac Type Severity Reaction Status Date / Time Seasonal Allergies Allergy Unknown Verified 11/23/24 12:45 Active Medications: Current Medications Acetaminophen (Acetaminophen 325 Mg Tablet) 650 mg PO Q6H PRN PRN Reason: Pain, Mild 1-3,fever,headache Amiodarone HCl (Amiodarone Hcl 200 Mg Tablet) 200 mg PO DAILY [facility] Last Admin: 11/24/24 08:36 Dose: 200 mg Aripiprazole (Aripiprazole 20 Mg Tablet) 20 mg PO DAILY [facility] Last Admin: 11/24/24 09:03 Dose: 20 mg Atorvastatin Calcium (Atorvastatin Calcium 40 Mg Tablet) 40 mg PO BEDTIME [facility] Benzonatate (Benzonatate 100 Mg Capsule) 100 mg PO TID PRN PRN Reason: Cough Benztropine Mesylate (Benztropine Mesylate 1 Mg Tablet) 1 mg PO BEDTIME [facility] Calcium Carbonate (Calcium Carbonate 750 Mg Tab.Chew) 750 mg PO Q4H PRN PRN Reason: Heartburn Diltiazem HCl (Diltiazem Hcl 30 Mg Tablet) 90 mg PO QID [facility]; Protocol Empagliflozin (Empagliflozin 10 Mg Tablet) 10 mg PO DAILY [facility] Last Admin: 11/24/24 08:35 Dose: 10 mg Fluticasone/Vilanterol (Fluticasone/Vilanterol 200/25 Blst.W.Dev) 1 puff INHALE RDAILY [facility] Levothyroxine Sodium (Levothyroxine Sodium 112 Mcg Tablet) 112 mcg PO MOTUWETHFRSA@0600 [facility] Last Admin: 11/24/24 08:35 Dose: 112 mcg Levothyroxine Sodium (Levothyroxine Sodium 112 Mcg Tablet) 168 mcg PO ALLRED@0600 [facility] Magnesium Hydroxide (Milk Of Magnesia 30 Ml Oral.Susp) 30 ml PO DAILY PRN PRN Reason: Constipation Melatonin (Melatonin 3 Mg Tablet) 6 mg PO BEDTIME PRN PRN Reason: Insomnia Metoprolol Succinate (Metoprolol Succinate Er 100 Mg Tab.Er.24h) 100 mg PO DAILY [facility]; Protocol Montelukast Sodium (Montelukast Sodium 10 Mg Tablet) 10 mg PO BEDTIME [facility] Ondansetron HCl (Ondansetron Hcl 4 Mg/2 Ml Vial) 4 mg IVPUSH Q8H PRN PRN Reason: Nausea and Vomiting Rivaroxaban (Rivaroxaban 20 Mg Tablet) 20 mg PO BEDTIME [facility] Last Admin: 11/23/24 20:22 Dose: 20 mg Sertraline HCl (Sertraline Hcl 25 Mg Tablet) 25 mg PO DAILY [facility] Last Admin: 11/24/24 08:36 Dose: 25 mg Sertraline HCl (Sertraline Hcl 100 Mg Tablet) 100 mg PO DAILY [facility] Last Admin: 11/24/24 08:35 Dose: 100 mg Sodium Chloride (0.9 % Sodium Chloride Flush 3 Ml Syringe) 3 ml IVFLUSH QSHIFT [facility] Last Admin: 11/24/24 08:37 Dose: 3 ml Home Medications ?Medication ?Instructions ?Recorded ?Confirmed ?Last Taken ?Type levothyroxine 112 mcg tablet 112 mcg PO MOTUWETHFRSA@0600 07/30/20 11/23/24 11/23/24 History magnesium oxide 400 mg (241.3 mg 400 mg PO DAILY 07/30/20 11/23/24 11/23/24 History magnesium) tablet melatonin 5 mg tablet 10 mg PO BEDTIME PRN insomnia 07/30/20 11/23/24 01/10/22 History pehsptuqgyks-kzqkwodr-egukng tablet 1 tab PO DAILY 01/11/22 11/23/24 11/23/24 History sertraline 25 mg tablet 25 mg PO DAILY 05/11/23 11/23/24 11/23/24 History atorvastatin 40 mg tablet 40 mg PO BEDTIME 09/21/23 11/23/24 11/22/24 History Oxygen Home Use 05/08/24 07/17/24 Unknown History sertraline 100 mg tablet 100 mg PO DAILY 05/08/24 11/23/24 11/23/24 History empagliflozin 10 mg tablet 10 mg PO DAILY 07/17/24 11/23/24 11/23/24 History (Jardiance) aripiprazole 20 mg tablet 20 mg PO DAILY 09/22/24 11/23/24 11/23/24 History levothyroxine 112 mcg tablet 168 mcg PO ALLRED@0600 09/22/24 11/23/24 11/19/24 History paliperidone palmitate 234 mg/1.5 234 mg IM Q4W 09/22/24 11/23/24 1 Week Ago History mL intramuscular syringe (Invega ~11/16/24 Sustenna) rivaroxaban 20 mg tablet (Xarelto) 20 mg PO DAILY@1700 09/22/24 11/23/24 11/22/24 History acetaminophen 500 mg tablet 500 mg PO Q6H PRN Pain 11/09/24 11/23/24 Unknown History albuterol sulfate 90 mcg/actuation 2 puff inhalation Q4H PRN 11/09/24 11/23/24 Unknown History aerosol inhaler shortness of breath or wheezing benztropine 1 mg tablet 1 mg PO BEDTIME 11/09/24 11/23/24 11/22/24 History amiodarone 200 mg tablet 200 mg PO DAILY 04/11/1411/23/24 11/23/24 History fluticasone propionate 230 2 puff inhalation BID 11/23/24 11/23/24 Unknown History mcg-salmeterol 21 mcg/actuation HFA inhaler (Advair HFA) loperamide 2 mg capsule 2 mg PO Q4H PRN Loose Stool 11/23/24 11/23/24 11/23/24 History metoprolol succinate 100 mg 100 mg PO DAILY 11/23/24 11/23/24 11/23/24 History tablet,extended release 24 hr Physical Exam Vital Signs: Vital Signs: Last Vital Signs Temp 98.0 F 11/24/24 06:15 Pulse 117 H 11/24/24 08:33 Resp 16 11/24/24 08:33 BP 153/89 H 11/24/24 08:33 Pulse Ox 92 11/24/24 08:33 O2 Del Method Room Air 11/24/24 08:33 O2 Flow Rate 1.5 11/24/24 06:15 Oxygen Flow Rate 2 11/23/24 12:41 BMI result Body Mass Index 52.1 Const: General: comfortable and no acute distress Orientation/consciousness: patient oriented x3 HEENT: Other: Unremarkable Head: Yes normal to inspection Neck: Neck: Yes normal visual inspection Chest: Chest palpation & inspection: normal inspection of the chest Resp: Auscultation: clear to auscultation bilaterally Cardio: Palpation: normal PMI Heart sounds: S1 normal heart sound present, S2 normal heart sound present, no gallops, no murmurs and no rubs GI: Palpation (GI): Soft to palpation Back/Spine/Pelvis: Other: unremarkable Skin: General skin exam: no rashes or lesions noted Neuro: General: patient oriented x3 Extrem: General: Yes normal to inspection Psych: Mental Status: mental status grossly normal Objective Labs and Meds 11/23/24 13:11 11/24/24 06:46 Lab results: Laboratory Results - last 24 hr 11/23/24 11/24/24 13:11 06:46 WBC 6.8 RBC 3.92 L Hgb 11.7 L Hct 35.7 L MCV 91.1 MCH 29.8 MCHC 32.8 RDW 14.4 Plt Count 248 MPV 9.2 L Immature Gran % (Auto) 0.3 Neut % (Auto) 65.6 Lymph % (Auto) 22.7 [place] % (Auto) 8.3 Eos % (Auto) 2.8 Baso % (Auto) 0.3 Lymph # (Auto) 1.5 [place] # (Auto) 0.6 Eos # (Auto) 0.2 Baso # (Auto) 0.0 Abs Immat Gran (auto) 0.02 Absolute Neuts (auto) 4.5 Absolute Nucleated RBC 0.000 Nucleated RBC % (auto) 0.0 PT 14.8 H INR 1.3 H Sodium 144 142 Potassium 3.9 4.2 Chloride 106 110 H Carbon Dioxide 30 H 26 Anion Gap 12 10 L BUN 21 H 19 H Creatinine 0.73 0.73 Estim Creat Clear Calc 97.3 97.3 Estimated GFR > 60 > 60 Random Glucose 85 86 Calcium 9.5 8.7 D Magnesium 2.3 Total Bilirubin 0.3 0.4 AST 24 22 ALT 24 21 Alkaline Phosphatase 97 85 Troponin I High Sens < 2.7 B-Natriuretic Peptide 38 Total Protein 7.2 6.2 L Albumin 3.8 3.3 L TSH 3.43 Influenza Type A (PCR) NEGATIVE Influenza Type B (PCR) NEGATIVE RSV RNA Qual (PCR) NEGATIVE SARS-CoV-2 RNA (RT-PCR) NEGATIVE ECG Interpretation: EKG with atrial flutter at a rate of 121/Min. Imaging Radiologist's impression: Impressions Chest X-Ray 11/23/24 13:40 IMPRESSION: No acute cardiopulmonary abnormality. Electronically signed by: Kem Epperson MD 11/23/2024 01:56 PM EDT Assessment and Plan (1) Atrial flutter with rapid ventricular response: Status: Acute Plan Per recent EP note, paroxysmal atrial fibrillation, briefly successful status post cardioversion and back in atrial flutter. She was amiodarone loaded and also on beta-blockers. Plan for outpatient ablation. In this context, would continue the current regimen without any major changes. Her heart rate is not too fast in in fact around 100/Min. Can advised her to limit physical activity and avoid any form of exertion and mostly stay at rest. Keep her ablation appointment. Procedures Date of Service Date of Service: 11/24/24
[2024-11-24 13:51] VITALS: PULSE 99
[2024-11-24] MEDS: dilTIAZem HCL 30 MG TABLET 90 MG PO (13:51)
[2024-11-24 14:05] LABS: Magnesium 2.2 mg/dL (1.6-2.6)
--- NOTE | 2024-11-24 14:30 | MHC.CM.PN ---
Per MD, Patient is medically cleared for dc to home today, with services. Patient is active with [facility], who has been notified of today's dc. DAVID spoke with Daughter/Aviva @ listed # and she will transport Patient to home today around 5 PM.
--- NOTE | 2024-11-24 14:54 | P.DS_ITS ---
DS: Providers Provider Date of Service: 11/24/24 Date of admission: 11/23/24 15:48 Date of discharge: 11/24/24 Primary care physician: Masoud Khan MD Consults: 11/23/24 15:08 Consult to Cardiology Routine Consulting Provider: [facility] Reason for consultation: recurrent admission Aflutter RvR DS: Diagnosis Discharge Diagnosis (1) Atrial flutter with rapid ventricular response: Status: Acute (2) MARGOTH (obstructive sleep apnea): Status: Acute DS: Summary Hospital Course Hospital Course: Admission note HPI A 69 years old lady with PMH of AFlutter on Xarelto, asthma, diastolic dysfunction, COPD use supplemental oxygen 2 L, obstructive sleep apnea on CPAP at night, nonischemic cardiomyopathy came in from the nutrition tech office for rapid atrial fibrillation/flutter. The patient has recurrent admissions for the same problem. reports feeling weak and SOB while having no energy for the last week or so. was in regular visit at [facility] where they found her HR to be in 130s. No chest pain, palpitations, nausea, vomiting, diarrhea or urinary symptoms. She is scheduled for Ablation procedure by EP next month. To be admitted for further management and monitoring. Hospital course The pateint was admitted for treatment of paroxysmal Aflutter with RVR as EKG showing 2:1 rate in 130s. Started on IV Cardizem, PO 60 mg Q6 and IV MEtoprolol in ED, 50 mg CD bid with fair response as she was evaluated by Cardiology who recommended to continue current therapy and follow with EP at [facility] for Ablation. To resume amiodarone and Xarelto. HR improved to 80-100. For chronic hypoxic respiratory failure with Acute asthma/COPD overlap syndrome. she continued home pulmonary meds and asked to use CPAP bedtime. Discharge plan Continue home medications Use CPAP at bedtime Start Cardizem 180 mg at bedtime The patient made quicker than expected recovery and will not need 2 overnight hospital stay. Time Attestation Discharge Coordination Time (in mins): 38 Quality: Safe Use of Opioids Does Pt have an Active Cancer Diagnosis on the Problem List?: No Quality: Stroke Does the patient have a stroke diagnosis?: No Physical Exam Vital Signs: Vital Signs: Last Vital Signs Temp 98.0 F 11/24/24 06:15 Pulse 99 11/24/24 13:51 Resp 16 11/24/24 08:33 BP 153/89 H 11/24/24 08:33 Pulse Ox 92 11/24/24 08:33 O2 Del Method Room Air 11/24/24 08:33 O2 Flow Rate 1.5 11/24/24 06:15 Oxygen Flow Rate 2 11/23/24 12:41 BMI result Body Mass Index 52.1 Const: Other: Constitutional : Awake, interactive, not in distress Neck : Normal inspection, Supple Cardiovascular : irregular irregular, no JVP, no lower extremity edema Respiratory : good bilateral air entry, no crackles, wheezes or rhonchi Gastrointestinal: soft, lax, Normal bowel sounds, Non tender Skin : Warm, Dry Neurological : Alert & oriented x3, No focal deficit , CN 2-12 within normal DS: Data Data Completed and Pending Labs on day of discharge: Laboratory Results - last 24 hr 11/24/24 11/24/24 06:46 06:46 Sodium 142 Potassium 4.2 Chloride 110 H Carbon Dioxide 26 Anion Gap 10 L BUN 19 H Creatinine 0.73 Estim Creat Clear Calc 97.3 Estimated GFR > 60 Random Glucose 86 Calcium 8.7 D Magnesium 2.2 Cancelled Total Bilirubin 0.4 AST 22 ALT 21 Alkaline Phosphatase 85 Total Protein 6.2 L Albumin 3.3 L Imaging Chest x-ray: Radiologist's impression: ITS Impressions Chest X-Ray 11/23/24 13:40 IMPRESSION: No acute cardiopulmonary abnormality. Electronically signed by: Kem Epperson MD 11/23/2024 01:56 PM EDT RP Discharge Plan Discharge Anticipated Discharge Date/Time: 11/24/24 14:36 Patient Disposition: Home Health Service Discharge Diagnosis: Atrial flutter w RvR Referrals: Masoud Khan MD [Primary Care Provider] - 1 Week Discharge Medications: New diltiazem HCl 180 mg capsule,extended release 24hr 180 mg PO BEDTIME Qty: 90 0RF Continued atorvastatin 40 mg tablet 40 mg PO BEDTIME benztropine 1 mg tablet 1 mg PO BEDTIME magnesium oxide 400 mg (241.3 mg magnesium) tablet 400 mg PO DAILY levothyroxine 112 mcg tablet 112 mcg PO MOTUWETHFRSA@0600 melatonin 5 mg tablet 10 mg PO BEDTIME PRN (Reason: insomnia) [id number]-usmhcwrd-ixffrb Tablet 1 tab PO DAILY albuterol sulfate 90 mcg/actuation HFA aerosol inhaler 2 puff inhalation Q4H PRN (Reason: shortness of breath or wheezing) acetaminophen 500 mg Tablet 500 mg PO Q6H PRN (Reason: Pain) metoprolol succinate 100 mg tablet extended release 24 hr 100 mg PO DAILY loperamide 2 mg Capsule 2 mg PO Q4H PRN (Reason: Loose Stool) Rx Instructions: administer after each loose stool until symptoms controlled; do not exceed 8 mg per 24 hrs aripiprazole 20 mg tablet 20 mg PO DAILY Invega Sustenna 234 mg/1.5 mL syringe 234 mg IM Q4W levothyroxine 112 mcg tablet 168 mcg PO ALLRED@0600 Xarelto 20 mg tablet 20 mg PO DAILY@1700 sertraline 25 mg tablet 25 mg PO DAILY sertraline 100 mg tablet 100 mg PO DAILY (DME) Oxygen Home Use Kit See Rx Instructions .Route Rx Instructions: As directed furosemide 20 mg tablet 20 mg PO DAILY PRN (Reason: edema) Qty: 14 1RF Rx Instructions: No further refills through our office - changing providers montelukast [Singulair] 10 mg tablet 10 mg PO BEDTIME 30 Days Qty: 30 11RF Jardiance 10 mg tablet 10 mg PO DAILY amiodarone 200 mg tablet 200 mg PO DAILY fluticasone propion-salmeterol [Advair HFA] 230-21 mcg/actuation HFA aerosol inhaler 2 puff inhalation BID Discharge Orders: Discharge Order (Routine); Ordered 11/24/24 Ordered By: Jessica Romero Diet: Low salt diet Activity on Discharge: As tolerated Stand Alone Forms: Patient Portal Discharge page Print Language: Fijian Care Plan Goals: Continue home medications Use CPAP at bedtime Start Cardizem 180 mg at bedtime Health Concerns: Atrial flutter with RvR Plan of Treatment: Home medications Cardizem CD Follow with cardiology at [facility] for Ablation Assessment: as above
--- NOTE | 2024-11-24 16:11 | PC.NURSE ---
throughout shift pt has been in aflutter with some PVCs. aware. monitor and storage bin tender tech noticed a long run and noticed this RN. Dr. Romero notified. awaiting orders
--- NOTE | 2024-11-24 16:24 | PC.NURSE ---
pt cleared for Dc by Dr. Romero
[2024-11-24 17:18] VITALS: BP 103/66; PULSE 80; RESP 20; TEMP 36.9; O2SAT 96
--- NOTE | 2024-11-24 17:29 | PC.NURSE ---
Pt is ready for discharge and ride is here. They would like to leave now. 1700 dose of diltiazem is unavailable and in pharmacy. Per Dr. Romero ok to Dc without 1700 dose
[2024-11-24 17:31] VITALS: BP 103/66; PULSE 80; RESP 20; TEMP 36.9; O2SAT 96
== END 2024-11-24 17:47 | disposition home health service (06) | DRG 308 ==
LOC: HO.ED 14:19 → HO.EDOVER 15:50
PROVIDERS: Registered Nurse Emergency; Admitting Provider Student in an Organized Health Care Education/Training Program; Emergency Provider Emergency Medicine; PCP Internal Medicine; Visit Provider Student in an Organized Health Care Education/Training Program
DX: I48.0 Paroxysmal atrial fibrillation (principal); I50.33 Acute on chronic diastolic (congestive) heart failure; J96.11 Chronic respiratory failure with hypoxia; Z68.43 Body mass index [BMI] 50.0-59.9, adult; I42.8 Other cardiomyopathies; E78.5 Hyperlipidemia, unspecified; G47.33 Obstructive sleep apnea (adult) (pediatric); Z20.822 Contact with and (suspected) exposure to COVID-19; E03.9 Hypothyroidism, unspecified; E66.813 Obesity, class 3; Z87.891 Personal history of nicotine dependence; Z71.3 Dietary counseling and surveillance; Z90.5 Acquired absence of kidney; Z99.81 Dependence on supplemental oxygen; Z79.01 Long term (current) use of anticoagulants; Z79.51 Long term (current) use of inhaled steroids; Z79.890 Hormone replacement therapy; Z79.899 Other long term (current) drug therapy
CPT/HCPCS: 0241U; 36415; 71045; 80053; 83735; 83880; 84443; 84484; 85025; 85610; 93005; 94660; 99212; 99285

== ENCOUNTER → 2024-11-23 12:15 | Outpatient (BNV) | payer MEDICARE, MEDICAID, SELFPAY | PROVIDERS: Admitting Provider Student in an Organized Health Care Education/Training Program; Emergency Provider Emergency Medicine; PCP Internal Medicine; Visit Provider Internal Medicine | DX: I48.92 Unspecified atrial flutter (principal); I45.9 Conduction disorder, unspecified | CPT/HCPCS: 93010 ==

== ENCOUNTER → 2024-11-23 13:36 | Outpatient (BNV) | payer MEDICARE, MEDICAID, SELFPAY | PROVIDERS: Emergency Provider Emergency Medicine; PCP Internal Medicine; Visit Provider Radiology Diagnostic Radiology | DX: I48.91 Unspecified atrial fibrillation (principal) | CPT/HCPCS: 71045 ==

== ENCOUNTER → 2024-11-23 15:48 | Outpatient (BNV) | payer MEDICARE, MEDICAID, SELFPAY | PROVIDERS: Admitting Provider Student in an Organized Health Care Education/Training Program; Emergency Provider Emergency Medicine; PCP Internal Medicine; Visit Provider Student in an Organized Health Care Education/Training Program | DX: I48.92 Unspecified atrial flutter (principal); G47.33 Obstructive sleep apnea (adult) (pediatric) | CPT/HCPCS: 99222; 99239 ==

== ENCOUNTER → 2024-11-23 15:48 | Outpatient (BNV) | payer MEDICARE, MEDICAID, SELFPAY | PROVIDERS: Admitting Provider Student in an Organized Health Care Education/Training Program; Emergency Provider Emergency Medicine; PCP Internal Medicine; Visit Provider Internal Medicine | DX: I48.92 Unspecified atrial flutter (principal) | CPT/HCPCS: 99223 ==

== ENCOUNTER 2025-06-22 09:10 | Outpatient (AMB) | payer MEDICARE, MEDICAID, SELFPAY ==
--- NOTE | 2025-06-22 09:12 | MHC.OFFVIS ---
Vital Signs 06/22/25 09:13 Height 5 ft 3 in Weight 298 lb 11.622 oz BMI 52.9 BP 120/64 Blood Pressure Location Lt radial Position Sitting Pulse 70 Pulse Source Pulse Oximeter Pulse Oximetry (%) 96 Oxygen Delivery Method Room Air Intake Visit Reasons: asthma Umbrella Finisher Required: No Allergies Seasonal Allergies Allergy (Verified 06/22/25 09:16) Unknown HPI Comments Details: The patient is a 69 old woman a known history atrial fibrillation, asthma and diastolic dysfunction was initially admitted to hospital in July 2021 with severe COVID with COVID pneumonia and respiratory failure. She did have CT of the chest demonstrating bilateral ground-glass opacities and areas of consolidation. She was discharged oxygen. She using the regularly. In addition she was readmitted to the in October atrial fibrillation by rapid ventricular response. Patient is wondering if she has asthma or COPD. And does causing breath. Explained to her that her shortness of breath is multifactorial. She denies any denies any sputum. Denies any chest pains pressure. She does have a tremor is related to medications she has been taking for many years. Patient does daytime drowsiness. Her [place] score is 10/24. The patient needs to undergo a in-lab study. 06/17/2021 the patient is here for a pulmonary follow-up visit. Overall the patient has been feeling little better. She did try the Anoro inhaler but was not effective. She still complaining of shortness of breath time. She also has a history atrial fibrillation so we have to be careful with her beta agonist therapy. In the meantime the patient still has oxygen at. She did undergo an in-lab sleep study demonstrating an AHI of less than 5. However she does have a REM related sleep disorder. During the whole night the patient desaturated down to the high 70s. In addition to that she has been 40 minutes below 88%. Therefore the patient still qualifies for oxygen likely due to her underlying chronic respiratory failure and obstructive airway disease. In addition to that due to COVID infection. The patient already has oxygen through [facility]. Therefore I will send a recent vacation prescription nor for her to continue using the oxygen at 2 L at nighttime. The patient does not qualify for CPAP at this time. I will also provide her with a short-acting beta agonist that she would use only as needed. Needs to be very careful with taking too much albuterol that can potentially worsen her atrial fibrillation control. The patient has been struggling with her weight. She is going to try to cut down on calorie intake increase her activity. Will follow-up sometime the springtime to assess her progress. 12/18/2021 the patient is here for a pulmonary follow-up visit. She continues to have significant daytime drowsiness. Her [place] score still elevated 12/24. The patient does not sleep well at night. She has been on the oxygen but does not feel like the oxygen supplementation has been effective for her. She has underlying cardiac history with atrial fibrillation. We did review her sleep study but it looks 6 she was having hard time falling asleep for most of the 1st part of the study. Then she was noted to have significant REM related sleep disorder. The patient will benefit from a repeat study at this time in view of her significant cardiovascular risk and also nocturnal hypoxia. In addition to that the patient has gained weight specially since the pandemic. She was also diagnosed with prediabetes. She knows that if she can lose some weight her breathing was also improved. She continues to have dyspnea on exertion moderate severity. the patient does need some guidance and help with the dietary lifestyle changes. 02/22/2024 the patient is here for a pulmonary follow-up visit. She has had a hard time with her asthma. She has been having worsening wheezing. Moderate severity. She actually went to the ER last time back in November. She was treated and released. The patient did have a chest x-ray which I personally reviewed. No acute respiratory issues noted. The patient does have some wheezing on examination. She does have a picture from for [facility] but she does not use it because she can not tolerate the powder inhalers. The patient has been using her rescue inhaler every 4 hours. Although she has atrial fibrillation and I explained to her that that be an issue. Patient needs to be on maintenance inhaler. She does have wheezing on exam right now. She is willing to try Advair puffer. She can do that twice a day use the albuterol in between. Also should be using singular. Will reassess in 2-3 months. If the patient has any worsening symptoms she will call for an earlier assessment. 05/08/2024 the patient is here for a pulmonary follow-up visit. The patient is without any significant complaints. She has been having some shortness breath with activity. Mild in severity. Although she has significant arthritic knees and difficulty ambulating. The patient also has been having issues with weight. She has gained weight which unfortunately could affect her respiratory capacity. She states that she does have anxiety and she does have issues with stress eating. She is going to work on different strategies to deal with her anxiety. In the meantime when she initially arrived to the office her oxygen was on the low side about 89-90%. We did take it for a walking oximetry in her oxygen did improve to 92% with activity. We talked about the importance of deep breathing exercises. Therefore, we did provide her with incentive spirometer so she can work on at home and also talked about different exercise activity such as a peddler for sitting down where she can exercise while sitting. The patient does not qualify for oxygen supplementation with activity. In addition to that she has been using the oxygen at nighttime. The oxygen nocturnally have been affecting beneficial continue for now. As far any inhaler therapy she is doing better with the Advair. We did go over the mechanism how to use it effectively. Based on the fact that she is a little more hypoxic will go ahead and request a chest x-ray at this time. She will continue with the current respiratory therapy and work on deep breathing exercises. Will follow-up in 6-8 months. If she has any issues prior to that she will call for an earlier assessment. 08/28/2024 the patient is here for a pulmonary follow-up visit. She has been complaining of worsening dyspnea on exertion. Although when she came in her oxygen L flow was the wrong setting at 0.5 liters/minute whenever supposed to be at 2. When she went up to 2 she did feel little better. She still complains of dyspnea on exertion though. Mild to moderate severity. She has been noticing increasing lower extremity edema. She has had some dietary indiscretions because of the holidays. She is aware that she has gained some weight over the holidays and has been noticing increasing swelling. Therefore, will go ahead and develop on her Lasix for the next 5 days to help her with her fluid overload to avoid worsening heart failure. After she gets the additional Lasix she can come in for some blood work next week. She will continue to use the oxygen as prescribed. Continues with respiratory therapy. 11/23/2024 the patient is here for a pulmonary follow-up visit. Since we last spoke the patient had been admitted to [facility] with atrial flutter with rapid ventricular response and subsequently transferred to [facility]. There she was evaluated. She was arranged to undergo a cardiac ablation. In the meantime while she was at [facility] she did have a CT scan of the chest which I personally reviewed demonstrating evidence of mosaic pattern suggesting small airways disease. Also likely to have some degree of pulmonary congestion from her cardiac status. Today when she came in she definitely had an elevated heart rate about 125. We did do an EKG demonstrating a flutter. I did call her manager garden. Explained to them the situation. Based on her elevated heart rate lower extremity edema and low oxygen levels we opted on transferring the patient to the ER to be evaluated for rate controlling therapies until she can see her manager garden and hopefully her ablation. 06/22/2025 the patient is here for pulmonary follow-up visit. Since we last spoke the patient had been in the hospital for AFib flutter. She is now being followed by Cardiology. Overall she is doing better on rate-controlling agents. She continues use her respiratory medications as prescribed. However, she still needs her rescue inhaler. I will send her Atrovent HFA for her to use as needed to make sure that it does not precipitate any cardiac arrhythmias. She also continues use the oxygen at nighttime with good effect. The oxygen therapy has been affecting beneficial. The patient also will increase her exercise activity. She does have significant shortness of breath although she is very sedentary. The patient also continues use the Advair with good effect. We did review her chest x-ray that she had back in November demonstrating no acute lung parenchymal disease. Otherwise the patient is without any other complaints will follow-up in 6-8 months if she has any issues prior to this she can always call for an earlier assessment. [facility] Medical History Chronic restrictive lung disease Nonischemic cardiomyopathy PAF (paroxysmal atrial fibrillation) Nocturnal hypoxemia Morbid obesity Asthma-COPD overlap syndrome Diastolic dysfunction Pneumonitis Schizophrenia, paranoid Afib Schizophrenia Atrial fib/flutter, transient Pneumonia due to COVID-19 virus Pacemaker Hypothyroid Schizophrenia HTN (hypertension) Asthma Surgical History History of cardiac pacemaker Hx of kidney removal Hx of removal of ovary Family History Father Heart disease Mother Heart disease Social History Household Members: None Housing: Apartment Do you presently have visiting nurse or other home services: No Alcohol intake: never Patient Tobacco Use Status: Former Tobacco user Years Smoked: 10 years +/- Advance Directives Date on File: 10/30/20 service: No Current occupational status: disabled Review of Systems Const Denies chills, Reports daytime sleepiness, Reports difficulty sleeping, Denies fatigue, Denies fever(s), Denies frequent falls, Reports snoring, Reports stops breathing during sleep, Denies weakness, Reports weight gain and Denies weight loss ENT Denies dizziness Card Denies chest pain, Denies leg edema, Denies lightheadedness, Denies dyspnea, Reports dyspnea on exertion, Denies orthopnea and Denies other (Loss of consciousness) Resp Reports cough, Denies dyspnea, Reports dyspnea on exertion, Reports snoring and Reports wheezing GI Denies hematochezia and Denies change in bowel habits Musc Denies abnormal gait, Denies muscle weakness, Denies numbness, Denies radiating pain into limb and Denies tingling Neuro Denies abnormal gait, Denies dizziness, Denies frequent falls, Denies numbness, Denies tingling and Denies weakness Endo Denies fatigue Aller/Immun Reports wheezing Physical Exam Vital Signs: Last Vital Signs Pulse 70 06/22/25 09:13 BP 120/64 06/22/25 09:13 Pulse Ox 96 06/22/25 09:13 Oxygen Delivery Method Room Air 06/22/25 09:13 BMI result Body Mass Index 52.9 Const General: alert Neck Neck: Yes normal visual inspection, Yes full ROM and Yes no lymphadenopathy Chest Chest palpation & inspection: normal inspection of the chest Resp Auscultation: diminished lung sounds Cardio Rate: regular rate Rhythm: regular rhythm Heart sounds: S1 normal heart sound present and S2 normal heart sound present GI Palpation (GI): Soft to palpation and nontender Auscultation: normal bowel sounds Skin General skin exam: rashes and/or lesions noted Assessment & Plan Assessment & Plan (1) Asthma-COPD overlap syndrome: Code(s): J44.9 - Chronic obstructive pulmonary disease, unspecified Category: Medical (2) MARGOTH (obstructive sleep apnea): Code(s): G47.33 - Obstructive sleep apnea (adult) (pediatric) Category: Medical (3) Diastolic dysfunction: Code(s): I51.89 - Other ill-defined heart diseases Category: Medical (4) Chronic restrictive lung disease: Code(s): J98.4 - Other disorders of lung Category: Medical (5) Nonischemic cardiomyopathy: Code(s): I42.8 - Other cardiomyopathies Category: Medical (6) Atrial flutter: Code(s): I48.92 - Unspecified atrial flutter Category: Medical Qualifiers: Atrial flutter type: unspecified Qualified Code(s): I48.92 - Unspecified atrial flutter Plan oxygen 2 L at nighttime while sleeping continue Advair BID continue LEONCIO as needed continue Singulair follow-up 6-8 months Coding Level of Care Code Est Pt Level 4 (01280) Complex EM visit Add On G2211 Diagnoses Asthma-COPD overlap syndrome J44.9 MARGOTH (obstructive sleep apnea) G47.33 Diastolic dysfunction I51.89 Chronic restrictive lung disease J98.4 Nonischemic cardiomyopathy I42.8 Atrial flutter, unspecified type I48.92 Atrial flutter type: unspecified Time Spent (min) 16
[2025-06-22 09:13] VITALS: BP 120/64; PULSE 70; O2SAT 96; BMI 52.9
== END 2025-06-22 09:43 | disposition home or self-care (01) ==
PROVIDERS: PCP Internal Medicine; Visit Provider Hospitalist
DX: J44.9 Chronic obstructive pulmonary disease, unspecified (principal); G47.33 Obstructive sleep apnea (adult) (pediatric); I51.89 Other ill-defined heart diseases; J98.4 Other disorders of lung; I42.8 Other cardiomyopathies; I48.92 Unspecified atrial flutter
CPT/HCPCS: 99214; G2211

== ENCOUNTER → 2025-06-22 09:10 | Outpatient (BNVA) | payer MEDICARE, MEDICAID, SELFPAY | PROVIDERS: PCP Internal Medicine; Visit Provider Hospitalist | DX: J44.89 Other specified chronic obstructive pulmonary disease (principal); G47.33 Obstructive sleep apnea (adult) (pediatric); I51.89 Other ill-defined heart diseases; J98.4 Other disorders of lung; I42.8 Other cardiomyopathies; I48.92 Unspecified atrial flutter; Z99.81 Dependence on supplemental oxygen | CPT/HCPCS: 99212 ==